=== PATIENT | male | born 1940 | race Caucasian/White ===

== ENCOUNTER 2017-02-24 18:04 | Inpatient (IN) | payer MEDICARE, BC ==
[~2017-02-24] VITALS: Ht 172.7 cm; Wt 109.6 kg
[~2017-02-24 18:04] MED LIST: ALBU1AER INH; ASPI81TA82 PO; ATOR80TA PO; BUDE.25I IN; CALC600T10; CETI5SOL2 PO; CHRO1TAB2 PO; DOXA1 PO; FLUO.05%ST EX; HYDR-2768 PO; LANTUS2P SC; LISI-366 PO; METO200T3 PO; MINO0.1C PO; NAPR250T57 PO; NOVOINJ SQ; NYST100010 TOP; NYSTT TOP; PRED20 PO; PRED50 PO; RISE1TAB; TAB-TAB PO; TIOT18I INH; [UNRECOGNIZED DRUG - CODE]; [UNRECOGNIZED DRUG - CODE]
[2017-02-24 18:22] VITALS: BP 105/63; PULSE 98; RESP 18; TEMP 98.3; O2SAT 97
[2017-02-24 18:41] VITALS: RESP 18; O2SAT 98
[2017-02-24 18:54] LABS: BASOPHIL % 0.2 % (0.0-2.0); EOSINOPHIL # 0.3 TH/MM3 (0-0.4); EOSINOPHIL % 4.1 % (0.0-4.0); HEMATOCRIT 32.4 % (39.0-51.0); HEMO FLAGS DIFF FINAL; LYMPHOCYTE # 0.4 TH/MM3 (1.0-4.8); MEAN CELL VOLUME 90.3 FL (80.0-100.0); MEAN CORPUSCULAR HEMOGLOBIN 29.9 PG (27.0-34.0); MEAN CORPUSCULAR HGB CONC 33.1 % (32.0-36.0); MONO % 6.4 % (0.0-8.0); NEUT % 84.3 % (16.0-70.0); PLATELET COUNT 230 TH/MM3 (150-450); RED BLOOD COUNT 3.59 MIL/MM3 (4.50-5.90); RED CELL DISTRIBUTION WIDTH 14.3 % (11.6-17.2); WHITE BLOOD COUNT 8.3 TH/MM3 (4.0-11.0)
[2017-02-24 19:05] LABS: APTT (PATIENT) 30.3 SEC (24.3-30.1); PROTHROMBIN TIME - PATIENT 11.3 SEC (9.8-11.6)
--- NOTE | 2017-02-24 19:15 | RADRPT ---
EXAM DATE/TIME: 02/24/2017 18:59 [facility] COMPARISON: No previous studies available for comparison. INDICATIONS : Unsteady gait today, confusion. RADIATION DOSE: 56.35 CTDIvol (mGy) MEDICAL HISTORY : Cardiovascular disease. SURGICAL HISTORY : None. ENCOUNTER: Initial ACUITY: 1 day PAIN SCALE: 0/10 LOCATION: cranial TECHNIQUE: Multiple contiguous axial images were obtained of the head. Using automated exposure control and adj ustment of the mA and/or kV according to patient size, radiation dose was kept as low as reasonably a chievable to obtain optimal diagnostic quality images. FINDINGS: CEREBRUM: The ventricles are normal for age. No evidence of midline shift, mass lesion, hemorrhage or acute in farction. No extra-axial fluid collections are seen. POSTERIOR FOSSA: The cerebellum and brainstem are intact. The 4th ventricle is midline. The cerebellopontine angle i s unremarkable. EXTRACRANIAL: The visualized portion of the orbits is intact. There is mucosal thickening in the left maxillary sin us with small air-fluid level. There is a small retention cyst in the right maxillary sinus. SKULL: The calvaria is intact. No evidence of skull fracture. CONCLUSION: 1. No acute hemorrhage or mass effect. 2. Acute sinusitis in the left maxillary sinus. Raul Craig MD on February 24, 2017 at 19:13 Board Certified Radiologist. This report was verified electronically.
[2017-02-24 19:25] LABS: ANION GAP 8 MEQ/L (5-15); AST (GOT) 10 U/L (15-37); BICARBONATE 25.5 MEQ/L (21.0-32.0); BLOOD UREA NITROGEN 30 MG/DL (7-18); CHLORIDE 105 MEQ/L (98-107); GLOMERULAR FILTRATION RATE 36 ML/MIN (>89); POTASSIUM 5.2 MEQ/L (3.5-5.1); SODIUM (NA) 138 MEQ/L (136-145)
[2017-02-24 19:30] LABS: BLOOD, URINE TRACE (NEG); GLUCOSE,URINE NEG (NEG); HYALINE CAST, URINE 6 /lpf (RARE); KETONE, URINE NEG (NEG); MUCUS URINE FEW /lpf (OCC); NITRITE,URINE NEG (NEG); PH, URINE 5.5 (5.0-8.5); URINE COLOR YELLOW (YELLW/STRAW)
[2017-02-24 19:30] LABS: ALKALINE PHOSPHATASE 117 U/L (45-117); ALT (GPT) 21 U/L (12-78); TOTAL BILIRUBIN ADULT 0.3 MG/DL (0.2-1.0)
[2017-02-24 19:31] LABS: CREATINE KINASE 44 U/L (39-308)
[2017-02-24 19:32] LABS: COMMENT (UR) CATH-CULT NOT IND; CULTURE IF INDICATED CATH CULTURE NOT IND
--- NOTE | 2017-02-24 19:34 | PD ---
HPI Chief Complaint: Neuro Symptoms/ Deficits Time Seen by Provider: 18:45 Travel History International Travel<30 days: No Contact w/Intl Traveler<30days: No Traveled to known affect area: No History of Present Illness HPI 76-year-old male presents to emergency Department with his family with involuntary movements and tingling of his upper extremities. Patient states it started yesterday and has progressed through the last 2 days. Patient denies fever, chills, or other specific medical problems. Patient does have significant COPD for which he uses a nebulizer, as well as several inhalers. Patient denies increased chest pain or shortness of breath. Patient states he did have a mild headache this morning which is since gone away. Patient states he did fall today as his legs felt somewhat uncoordinated and scraped his left knee. Patient has a long-term abrasion on the left lower extremity which she has been treating through the [place] for several months. Patient states that he does drink daily. Patient has never had similar symptoms previously this. The movements appear to be involuntary and intermittent. Patient is allergic to Bupropion, Hydrocodone, Terazosin, and Zyban. PFSH Past Medical History Cardiovascular Problems: Yes ([place]) COPD: Yes Coronary Artery Disease: Yes Diabetes: Yes Patient Takes Glucophage: No Diminished Hearing: Yes (BILATERAL HEARING AIDES) Respiratory: Yes (COPD) Sleep Apnea: Yes ?: Not Past Surgical History Abdominal Surgery: Yes (HERNIA) Joint Replacement: Yes (RIGHT KNEE) Tonsillectomy: Yes Social History Alcohol Use: Yes (DAILY ) Tobacco Use: No Substance Use: No Allergies-Medications (Allergen,Severity, Reaction): Coded Allergies: Bupropion (Verified Allergy, Unknown, 02/24/17) Hydrocodone (Verified Allergy, Unknown, 02/24/17) Terazosin (Verified Allergy, Unknown, 02/24/17) Uncoded Allergies: ZYBAN (Allergy, Severe, 10/22/15) Reported Meds & Prescriptions Reported Meds & Active Scripts Active Active Prescriptions or Reported Medications Unobtainable Physical Exam Narrative GENERAL: Patient appears in no obvious distress. Patient is noted to have audible wheezing, which he blames on his COPD. SKIN: Warm and dry. Normal color. Normal turgor. Patient has mild erythema to both lower extremities with superficial 3 chest chronic wound to the left anterior lower extremity. HEAD: Atraumatic. Normocephalic. EYES: Pupils equal and round. No scleral icterus. No injection or drainage. ENT: No nasal bleeding or discharge. Mucous membranes pink and moist. Pharynx is clear. Airway is patent. NECK: Trachea midline. No JVD. Supple and nontender. CARDIOVASCULAR: Regular rate and rhythm. RESPIRATORY: No accessory muscle use. Diffuse wheezes and crackles bilaterally to auscultation. Breath sounds equal bilaterally. GASTROINTESTINAL: Abdomen soft, non-tender, nondistended. Hepatic and splenic margins not palpable. MUSCULOSKELETAL: Extremities without clubbing, cyanosis, or patient has bilateral 2+ pitting edema. No obvious deformities. Upper extremities do have intermittent jerky movements, no liver flap. 5 motor skills are normal bilaterally with a bit of a tremor. NEUROLOGICAL: Awake and alert. No obvious cranial nerve deficits. Motor grossly within normal limits. Five out of 5 muscle strength in the arms and legs. Normal speech. PSYCHIATRIC: Appropriate mood and affect; insight and judgment normal. Data Data Last Documented VS Vital Signs Date Time Temp Pulse Resp B/P Pulse Ox O2 Delivery O2 Flow Rate FiO2 02/24/17 21:59 96 02/24/17 19:47 88 18 115/54 Nasal Cannula 2 02/24/17 18:22 98.3 Orders Mri Brain W&W/O Contrast (02/24/17 ) Electrocardiogram (02/24/17 18:30) Complete Blood Count With Diff (02/24/17 18:30) Comprehensive Metabolic Panel (02/24/17 18:30) Prothrombin Time / Inr (Pt) (02/24/17 18:30) Act Partial Throm Time (Ptt) (02/24/17 18:30) Lactic Acid Sepsis Protocol (02/24/17 18:30) Magnesium (Mg) (02/24/17 18:30) Ckmb (Isoenzyme) Profile (02/24/17 18:30) Troponin I (02/24/17 18:30) Urinalysis - C+S If Indicated (02/24/17 18:30) Blood Culture (02/24/17 18:30) Chest, Single Ap (02/24/17 18:30) Ecg Monitoring (02/24/17 18:30) Iv Access Insert/Monitor (02/24/17 18:30) Oximetry (02/24/17 18:30) Oxygen Administration (02/24/17 18:30) Mri C Spine W&W/O Contrast (02/24/17 ) Ct Brain W/O Iv Contrast(Rout) (02/24/17 ) Ct Cerv Spine W/O Contrast (02/24/17 ) B-Type Natriuretic Peptide (02/24/17 19:57) Magnesium (Mg) (02/24/17 19:57) Act Partial Throm Time (Ptt) (02/24/17 19:57) Furosemide Inj (Lasix Inj) (02/24/17 20:15) Albuterol-Ipratropium Neb (Duoneb Neb) (02/24/17 20:30) Piperacil-Tazo 4.5 Gm Premix (Zosyn 4.5 (02/24/17 20:30) Vancomycin Inj (Vancomycin Inj) (02/24/17 20:30) Methylprednisolone So Succ Inj (Solumedr (02/24/17 20:30) Place In Observation (02/24/17 ) Vital Signs (Adult) Q4H (02/24/17 21:47) Activity Oob With Assistance (02/24/17 21:47) [place] / Telemetry .CONTINUOUS (02/24/17 21:47) Diet Heart Healthy (02/25/17 Breakfast) Sodium Chloride 0.9% Flush (Ns Flush) (02/24/17 22:00) Sodium Chloride 0.9% Flush (Ns Flush) (02/25/17 09:00) Basic Metabolic Panel (Bmp) (02/25/17 06:00) Complete Blood Count With Diff (02/25/17 06:00) Pt Request For Service (02/24/17 21:47) Case Management Consult (02/24/17 21:47) Naloxone Inj (Narcan Inj) (02/24/17 22:00) Albuterol-Ipratropium Neb (Duoneb Neb) (02/24/17 22:00) Albuterol-Ipratropium Neb (Duoneb Neb) (02/24/17 22:00) Lorazepam Inj (Ativan Inj) (02/24/17 22:00) Labs Laboratory Tests Test 02/24/17 02/24/17 02/24/17 18:40 18:55 20:10 White Blood Count 8.3 TH/MM3 Red Blood Count 3.59 MIL/MM3 Hemoglobin 10.7 GM/DL Hematocrit 32.4 % Mean Corpuscular Volume 90.3 FL Mean Corpuscular Hemoglobin 29.9 PG Mean Corpuscular Hemoglobin 33.1 % Concent Red Cell Distribution Width 14.3 % Platelet Count 230 TH/MM3 Mean Platelet Volume 8.7 FL Neutrophils (%) (Auto) 84.3 % Lymphocytes (%) (Auto) 5.0 % Monocytes (%) (Auto) 6.4 % Eosinophils (%) (Auto) 4.1 % Basophils (%) (Auto) 0.2 % Neutrophils # (Auto) 7.0 TH/MM3 Lymphocytes # (Auto) 0.4 TH/MM3 Monocytes # (Auto) 0.5 TH/MM3 Eosinophils # (Auto) 0.3 TH/MM3 Basophils # (Auto) 0.0 TH/MM3 CBC Comment DIFF FINAL Differential Comment Prothrombin Time 11.3 SEC Prothromb Time International 1.0 RATIO Ratio Activated Partial 30.3 SEC 31.3 SEC Thromboplast Time Sodium Level 138 MEQ/L Potassium Level 5.2 MEQ/L Chloride Level 105 MEQ/L Carbon Dioxide Level 25.5 MEQ/L Anion Gap 8 MEQ/L Blood Urea Nitrogen 30 MG/DL Creatinine 1.85 MG/DL Estimat Glomerular Filtration 36 ML/MIN Rate Random Glucose 101 MG/DL Lactic Acid Level 1.1 mmol/L Calcium Level 9.0 MG/DL Magnesium Level 2.0 MG/DL 2.0 MG/DL Total Bilirubin 0.3 MG/DL Aspartate Amino Transf 10 U/L (AST/SGOT) Alanine Aminotransferase 21 U/L (ALT/SGPT) Alkaline Phosphatase 117 U/L Total Creatine Kinase 44 U/L Troponin I 0.02 NG/ML Total Protein 6.5 GM/DL Albumin 3.2 GM/DL Urine Color YELLOW Urine Turbidity CLEAR Urine pH 5.5 Urine Specific [place] 1.017 Urine Protein TRACE mg/dL Urine Glucose (UA) NEG mg/dL Urine Ketones NEG mg/dL Urine Occult Blood TRACE Urine Nitrite NEG Urine Bilirubin NEG Urine Urobilinogen LESS THAN 2.0 MG/DL Urine Leukocyte Esterase NEG Urine RBC 2 /hpf Urine WBC 1 /hpf Urine Hyaline Casts 6 /lpf Urine Mucus FEW /lpf Microscopic Urinalysis Comment CATH-CULT NOT IND B-Type Natriuretic Peptide 702 PG/ML MDM Medical Decision Making Medical Screen Exam Complete: Yes Emergency Medical Condition: Yes Medical Record Reviewed: Yes Differential Diagnosis [place]. Myelopathy. CHF. Pneumonia. Lower extremity cellulitis. COPD with acute exacerbation. Narrative Course Patient is medically stable at time of exam. Patient is discussed and seen with Dr. Wynn. Labs ordered including CBC, CMP, lactic acid, blood cultures 2, and urinalysis. Chest x-ray is ordered as well as head and C-spine. MRI of the neck with and without contrast is ordered as well. CBC is remarkable except for mild anemia which is chronic for the patient compared to previous labs. Hemoglobin is 10.7, hematocrit 32.4. CMP shows sodium 138, potassium 5.2. BUN is 30. Creatinine is 1.85. There is no previous comparison here. Coagulation studies are unremarkable. Chest x-ray shows new consolidative opacity in the right lung base of concern for possible pneumonia. Patient also has mild hazy opacity in the left lung base, and mild blunting of both costophrenic angles chest with small effusions per radiologist. CT shows multiple chronic arthritic changes without anything acute, per radiologist. MRI with and without contrast is still pending. ProBNP is [address] Chakraborty who took over care after the change from Dr. Wynn, and she recommends antibiotics for possible pneumonia as well as possible lower extremity cellulitis despite the patient's fairly normal- appearing labs. The patient is given vancomycin 1000 mg IV as well as Zosyn 4.5 g IV. Also the patient is given Lasix IV for question of CHF. Patient is given a DuoNeb 1 and Solu-Medrol 125 mg IV due to his COPD history. 2100 hrs. call was placed to the hospitalist for admission. [address] Galicia, and she agreed to admit the patient. Diagnosis Primary Impression: Pneumonia Qualified Code: J18.1 - Pneumonia of right lower lobe due to infectious organism Additional Impressions: CHF exacerbation Qualified Code: I50.9 - Acute on chronic congestive heart failure, unspecified congestive heart failure type COPD exacerbation Bilateral lower leg cellulitis Upper extremity anomaly Admitting Information Admitting Physician Requests: Admit Scripts Unable to Obtain Active Prescriptions or Reported Meds Condition: Stable Nelson Heard Feb 24, 2017 19:33
[2017-02-24 19:47] VITALS: BP 115/54; PULSE 88; RESP 18; O2SAT 96
--- NOTE | 2017-02-24 19:57 | RADRPT ---
EXAM DATE/TIME: 02/24/2017 19:02 [facility] COMPARISON: No previous studies available for comparison. INDICATIONS : Unsteady gait. RADIATION DOSE: 35.15 CTDIvol (mGy) MEDICAL HISTORY : Cardiovascular disease. SURGICAL HISTORY : None. ENCOUNTER: Initial ACUITY: 1 day PAIN SCALE: 0/10 LOCATION: neck TECHNIQUE: Volumetric scanning of the cervical spine was performed. Multiplanar reconstructions in the sagittal, coronal and oblique axial planes were performed. Using automated exposure control and adjustment o f the mA and/or kV according to patient size, radiation dose was kept as low as reasonably achievable to obtain optimal diagnostic quality images. FINDINGS: Study is mildly degraded by motion artifact. VERTEBRAE: Normal vertebral body height. DISCS: There is mild degenerative disc change at the C5-6 and C6-7 levels with disc space narrowing and hype rtrophic change. ALIGNMENT: No evidence of subluxation. C2-C3: The bony spinal canal is normal in size. No evidence of disc bulge or herniation. The neural forami na are bilaterally patent. C3-C4: The bony spinal canal is normal in size. No evidence of disc herniation. There is moderate narrowing of the left neural foramina secondary to degenerative change involving the facet joint. C4-C5: The bony spinal canal is normal in size. No evidence of disc herniation. The neural foramina are bi laterally patent. C5-C6: There is a mild disc osteophyte complex with mild flattening of the anterior thecal sac. There is mil d narrowing of the neural foramina bilaterally. C6-C7: The bony spinal canal is normal in size. No evidence of disc herniation. The neural foramina are bi laterally patent. C7-T1: The bony spinal canal is normal in size. No evidence of disc herniation. The neural foramina are bi laterally patent. CONCLUSION: 1. Moderate narrowing of left neural foramina at the C3-4 level secondary to hypertrophic change invo lving the facet joint. 2. Mild degenerative change at the C5-6 and C6-7 levels. 3. Mild disc osteophyte complex at C5-6 with mild narrowing of the neural foramina. Raul Craig MD on February 24, 2017 at 19:52 Board Certified Radiologist. This report was verified electronically.
--- NOTE | 2017-02-24 20:12 | RADRPT ---
EXAM DATE/TIME: 02/24/2017 19:20 [facility] COMPARISON: CHEST SINGLE AP, October 22, 2015, 13:12. INDICATIONS : Chest pain. MEDICAL HISTORY : Myocardial infarction. Chronic obstructive pulmonary disease. Diabetes SURGICAL HISTORY : None. ENCOUNTER: Initial ACUITY: 1 day PAIN SCORE: 5/10 LOCATION: Bilateral chest FINDINGS: A single AP erect view of the chest was obtained and demonstrates new consolidative opacity in the ri ght lung base with blunting of the costophrenic angles bilaterally. The heart size is moderately enla rged. There is no perihilar edema. There is hazy opacity now noted at the left lung base. The bony th orax remains intact. There are atherosclerotic changes in the aorta. CONCLUSION: 1. New consolidative opacity in the right lung base of concern for pneumonia. 2. Mild hazy opacity at the left lung base. 3. Mild blunting of both costophrenic angles which could indicate small effusions. Raul Craig MD on February 24, 2017 at 20:09 Board Certified Radiologist. This report was verified electronically.
[2017-02-24] MEDS ORDERED: FUROSEMIDE 40 MG/4 ML VIAL IV PUSH ONE (20:15)
[2017-02-24] MEDS ORDERED: VANCOMYCIN INJ 1,000 MG in SODIUM CHLOR 0.9% 250 ML INJ 250 ML IV ONE (20:30)
[2017-02-24] MEDS ORDERED: RESP: ALBUTEROL 2.5 MG/IPRATROPIUM 0.5 MG NEB (SCH) INH ONE (20:30)
[2017-02-24] MEDS ORDERED: methylPREDNISolone SOD SUCC 125 MG/2 ML VIAL IV PUSH ONE (20:30)
[2017-02-24] MEDS ORDERED: PIPERACIL-TAZO 4.5 GM PREMIX 100 ML IV ONE (20:30)
[2017-02-24 20:37] LABS: APTT (PATIENT) 31.3 SEC (24.3-30.1)
[2017-02-24 21:59] VITALS: O2SAT 96
[2017-02-24] MEDS ORDERED: LORazepam 2 MG/ML VIAL IV PUSH ONE (22:00)
[2017-02-24] MEDS ORDERED: NALOXONE HCL 0.4 MG/ML AMP IV PRN (22:00)
[2017-02-24] MEDS: RESP: ALBUTEROL 2.5 MG/IPRATROPIUM 0.5 MG NEB (SCH) NEB (22:00)
[2017-02-24 22:39] VITALS: BP 112/53; PULSE 78; RESP 19; O2SAT 95
[2017-02-24] MEDS ORDERED: GADOBENATE DIM PF 529 MG/ML 20ML VIAL (for RAD MRI) IV ONE (23:23)
[2017-02-24 23:46] VITALS: BP 143/62; PULSE 84; RESP 20; TEMP 97.7; O2SAT 96
--- NOTE | 2017-02-24 23:54 | RADRPT ---
EXAM DATE/TIME: 02/24/2017 22:46 [facility] COMPARISON: CT BRAIN W/O CONTRAST, February 24, 2017, 18:59. INDICATIONS : Upper extremity weakness. CONTRAST: 20 cc Multihance (gadobenate) IV MEDICAL HISTORY : Hypertension. Diabetes mellitus type 2. SURGICAL HISTORY : Fusion, lumbar. ENCOUNTER: Initial ACUITY: 2 day PAIN SCORE: 0/10 LOCATION: head TECHNIQUE: Multiplanar, multisequence MRI of the brain was performed both prior to and following the administrat ion of paramagnetic contrast. FINDINGS: CEREBRUM: The ventricles are normal for age. No evidence of midline shift, mass lesion, hemorrhage or acute in farction. No extraaxial fluid collections are seen. The pituitary gland and suprasellar cistern are normal in configuration. WHITE MATTER: No significant signal abnormalities are seen in the white matter. POSTERIOR FOSSA: The cerebellum and brainstem are intact. The 4th ventricle is midline. The cerebellopontine angle is unremarkable. The cerebellar tonsils are normal in position. DIFFUSION IMAGING: No focal areas of restricted diffusion are seen. No evidence of acute infarction. EXTRACRANIAL: The visualized portions of the orbits are unremarkable. Left maxillary sinusitis. POST-CONTRAST: No abnormal areas of parenchymal or dural enhancement. No evidence of blood-brain barrier breakdown. CONCLUSION: 1. No acute intracranial abnormality. 2. Left maxillary sinus disease. 3. No acute infarction. Neto Duenas MD on February 24, 2017 at 23:51 Board Certified Radiologist. This report was verified electronically.
[2017-02-25] VITALS (11 sets, daily range): BP systolic 109–156; BP diastolic 57–67; PULSE 72–129; RESP 16–22; TEMP 97.5–98; O2SAT 93–98
--- NOTE | 2017-02-25 00:12 | RADRPT ---
EXAM DATE/TIME: 02/24/2017 22:46 [facility] COMPARISON: No previous studies available for comparison. INDICATIONS : Upper extremity weakness. CONTRAST: 20 cc Multihance (gadobenate) IV MEDICAL HISTORY : Hypertension. Diabetes mellitus type 2. SURGICAL HISTORY : Fusion, lumbar. ENCOUNTER: Initial ACUITY: 2 day PAIN SCORE: 4/10 LOCATION: c-spine TECHNIQUE: Multiplanar, multisequence MRI examination of the cervical spine was performed. FINDINGS: VERTEBRAE: Normal vertebral body height. Homogeneous marrow signal. ALIGNMENT: No evidence of subluxation. CORD: Normal configuration and signal. POST FOSSA: The cerebellar tonsils are normal in position. POST-CONTRAST: No abnormal areas of enhancement are seen. C2-C3: The thecal sac has a normal configuration. There is no evidence of disc herniation or spinal canal stenosis. The neural foramina are patent bilaterally. C3-C4: Small central protrusion abuts the ventral cord. Minimal extruded component extending superiorly unde rneath the posterior longitudinal ligament. No canal stenosis. Mild neural foraminal narrowing on the left. Right neural foramen is patent. C4-C5: Small central protrusion abuts the ventral cord. No canal stenosis. The neural foramina are patent bi laterally. C5-C6: Mild broad-based disc bulge abuts ventral thecal sac. No canal stenosis. Mild bilateral neural forami nal narrowing bilaterally. C6-C7: Mild broad-based disc bulge abuts ventral thecal sac. No canal stenosis. The neural foramina are trujillo nt bilaterally. C7-T1: The thecal sac has a normal configuration. There is no evidence of disc herniation or spinal canal s tenosis. The neural foramina are patent bilaterally. CONCLUSION: 1. Small central protrusion at C4-5 without canal stenosis. 2. Small central protrusion at C3-4 with minimal extruded component. 3. Mild broad-based disc bulges at C5-6 and C6-7 levels without canal stenosis. Neto Duenas MD on February 25, 2017 at 0:07 Board Certified Radiologist. This report was verified electronically.
--- NOTE | 2017-02-25 01:26 | HHI.HP ---
[facility] Unknown Admission Diagnosis Pneumonia/Cellulitis/CHF/COPD Diagnoses: Chief Complaint: Falling down, weakness, chest pain, shortness of breath, cough Travel History International Travel<30 Days: No Contact w/Intl Traveler <30 Da: No Traveled to Known Affected Are: No History of Present Illness His room patient, your physician communication, and review of medical records. Patient reported that he came to the hospital because he just has been falling down. He reports he was not able to grab anything with his hands. He stated this is bilateral. He reports that he was also an steady on his feet and did fall down at home. Landed on his buttock. Denies any head trauma. Denies being on blood thinners at home. He denies syncope. On further questioning, patient also reports of having shortness of breath and cough in the past few days to a week or so. He reports that he also happens to have chest pain this morning which went all across his chest. He denies any recent fevers/nausea/vomiting/diarrhea/urinary burning or pain on urination. Denies any hematemesis/hematochezia/melena/hematuria. Patient states that he wears long pumping device bilaterally in his lower extremities for lymphedema. He stated [facility] and that it really helps with his lymphedema. He denies any recent prolonged travels. Denies any calf asymmetry or pain. Review of Systems Except as stated in HPI: all other systems reviewed are Neg Past Family Social History Past Medical History Hypertension Diabetes Coronary artery disease CHF COPD Reports he thinks he has asthma. Sleep apneahe states he was prescribed C Pap machine but he doesn't really use it because of discomfort. Chronic bilateral lower extremity lymphedemafor which he uses some pumping device on a daily basis Obesity Past Surgical History Right knee surgery Left wrist surgery Hemorrhoidectomy Fistular repair Tonsillectomy Reported Medications Patient does not remember the names and doses of his medications. Med reconciliation is not complete. Allergies: Coded Allergies: Bupropion (Verified Allergy, Unknown, 02/24/17) Hydrocodone (Verified Allergy, Unknown, 02/24/17) Terazosin (Verified Allergy, Unknown, 02/24/17) Uncoded Allergies: ZYBAN (Allergy, Severe, 10/22/15) Family History Reports his father had arrhythmias. Reports mother had coronary artery disease. Social History He used to smoke cigarettes, quit in 1999. Denies any alcohol abuse or drug abuse. Physical Exam Vital Signs Vital Signs Date Time Temp Pulse Resp B/P Pulse Ox O2 Delivery O2 Flow Rate FiO2 02/24/17 23:46 97.7 84 20 143/62 96 02/24/17 22:39 78 19 112/53 95 Nasal Cannula 2 02/24/17 21:59 96 02/24/17 19:47 88 18 115/54 96 Nasal Cannula 2 02/24/17 18:41 18 98 Nasal Cannula 2 02/24/17 18:41 98 Nasal Cannula 2 02/24/17 18:22 98.3 98 18 105/63 97 Room Air 02/24/17 18:20 99 18 96 Nasal Cannula 2 Physical Exam GENERAL: This is a well-nourished, well-developed patient, in no apparent distress. Obese SKIN: No rashes, ecchymoses or lesions. Cool and dry. HEAD: Atraumatic. Normocephalic. No temporal or scalp tenderness. EYES: No scleral icterus. No injection or drainage. ENT: Nose without bleeding, purulent drainage or septal hematoma. Airway patent. NECK: Trachea midline. No JVD CARDIOVASCULAR: Regular rate and rhythm without murmurs, gallops, or rubs. RESPIRATORY: Clear to auscultation. Breath sounds equal bilaterally. No wheezes , rales, or rhonchi. GASTROINTESTINAL: Abdomen soft, non-tender, nondistended. No guarding. MUSCULOSKELETAL: Extremities without clubbing, cyanosis, or edema. No calf tenderness. Bilateral lower extremity chronic lymphedema. Left lower extremity slightly more red than the right. Patient reports of chronicity. No warmth. NEUROLOGICAL: Awake and alert. Motor and sensory grossly within normal limits. Normal speech. Laboratory Laboratory Tests Test 02/24/17 02/24/17 02/24/17 18:40 18:55 20:10 White Blood Count 8.3 Red Blood Count 3.59 Hemoglobin 10.7 Hematocrit 32.4 Mean Corpuscular Volume 90.3 Mean Corpuscular Hemoglobin 29.9 Mean Corpuscular Hemoglobin 33.1 Concent Red Cell Distribution Width 14.3 Platelet Count 230 Mean Platelet Volume 8.7 Neutrophils (%) (Auto) 84.3 Lymphocytes (%) (Auto) 5.0 Monocytes (%) (Auto) 6.4 Eosinophils (%) (Auto) 4.1 Basophils (%) (Auto) 0.2 Neutrophils # (Auto) 7.0 Lymphocytes # (Auto) 0.4 Monocytes # (Auto) 0.5 Eosinophils # (Auto) 0.3 Basophils # (Auto) 0.0 CBC Comment DIFF FINAL Differential Comment Prothrombin Time 11.3 Prothromb Time International 1.0 Ratio Activated Partial 30.3 31.3 Thromboplast Time Sodium Level 138 Potassium Level 5.2 Chloride Level 105 Carbon Dioxide Level 25.5 Anion Gap 8 Blood Urea Nitrogen 30 Creatinine 1.85 Estimat Glomerular Filtration 36 Rate Random Glucose 101 Lactic Acid Level 1.1 Calcium Level 9.0 Magnesium Level 2.0 2.0 Total Bilirubin 0.3 Aspartate Amino Transf 10 (AST/SGOT) Alanine Aminotransferase 21 (ALT/SGPT) Alkaline Phosphatase 117 Total Creatine Kinase 44 Troponin I 0.02 Total Protein 6.5 Albumin 3.2 Urine Color YELLOW Urine Turbidity CLEAR Urine pH 5.5 Urine Specific [place] 1.017 Urine Protein TRACE Urine Glucose (UA) NEG Urine Ketones NEG Urine Occult Blood TRACE Urine Nitrite NEG Urine Bilirubin NEG Urine Urobilinogen LESS THAN 2.0 Urine Leukocyte Esterase NEG Urine RBC 2 Urine WBC 1 Urine Hyaline Casts 6 Urine Mucus FEW Microscopic Urinalysis Comment CATH-CULT NOT IND B-Type Natriuretic Peptide 702 Date/Time Procedure Status Source Growth 02/24/17 18:40 Aerobic Blood Culture Received Blood Peripheral Pending 02/24/17 18:40 Anaerobic Blood Culture Received Blood Peripheral Pending Result Diagram: 02/24/17 1840 02/24/17 1840 Imaging Last 48 hours Impressions Chest X-Ray 02/24/17 1830 Signed Impressions: Service Date/Time: Friday, February 24, 2017 19:20 - CONCLUSION: 1. New consolidative opacity in the right lung base of concern for pneumonia. 2. Mild hazy opacity at the left lung base. 3. Mild blunting of both costophrenic angles which could indicate small effusions. Raul Craig MD Head CT 02/24/17 0000 Signed Impressions: Service Date/Time: Friday, February 24, 2017 18:59 - CONCLUSION: 1. No acute hemorrhage or mass effect. 2. Acute sinusitis in the left maxillary sinus. Raul Craig MD Cervical Spine MRI 02/24/17 0000 Signed Impressions: Service Date/Time: Friday, February 24, 2017 22:46 - CONCLUSION: 1. Small central protrusion at C4-5 without canal stenosis. 2. Small central protrusion at C3-4 with minimal extruded component. 3. Mild broad-based disc bulges at C5- 6 and C6-7 levels without canal stenosis. Neto Duenas MD Cervical Spine CT 02/24/17 0000 Signed Impressions: Service Date/Time: Friday, February 24, 2017 19:02 - CONCLUSION: 1. Moderate narrowing of left neural foramina at the C3-4 level secondary to hypertrophic change involving the facet joint. 2. Mild degenerative change at the C5-6 and C6-7 levels. 3. Mild disc osteophyte complex at C5-6 with mild narrowing of the neural foramina. Raul Craig MD Brain MRI 02/24/17 0000 Signed Impressions: Service Date/Time: Friday, February 24, 2017 22:46 - CONCLUSION: 1. No acute intracranial abnormality. 2. Left maxillary sinus disease. 3. No acute infarction. Neto Duenas MD Assessment and Plan Problem List: (1) Pneumonia ICD Code: J18.9 Status: Acute Assessment and Plan Impression: Generalized weakness/fallslikely due to acute medical illness. Patient's imaging studies reviewed. No acute pathologies. Pneumoniacommunity acquired in a diabetic with quite generalized weakness secondary to it Elevated BNPlikely due to renal failure. However patient does report of shortness of breath. This could also be due to pneumonia. Hypertension Diabetes Coronary artery disease CHF COPDquit smoking in 1999 Chronic kidney disease stage III Reports he thinks he has asthma. Sleep apneahe states he was prescribed C Pap machine but he doesn't really use it because of discomfort. Chronic bilateral lower extremity lymphedemafor which he uses some pumping device on a daily basis Obesity Plan: Patient was given for treatment of pneumonia. Was switched to single regimen with cefepime. Watch for fluid overload. He was also given Lasix 40 mg IV 1 dose in ER. At present, I would continue Lasix by mouth at 20 mg by mouth twice a day. However would watch for fluid overload with IV antibiotics administration. Obtain patient's med reconciliation. Orders have been written. Nebs when necessary. DVT prophylaxisheparin. GI prophylaxis on pantoprazole. Discussed Condition With Patient, ER physician, patient's nurse Problem Qualifiers (1) Pneumonia: Qualified Code: J18.1 - Pneumonia of right lower lobe due to infectious organism Haider Galicia MD Feb 25, 2017 01:25
[2017-02-25] MEDS: RESP: ALBUTEROL 2.5 MG/IPRATROPIUM 0.5 MG NEB (SCH) NEB ×4 (03:48→19:24)
[2017-02-25 05:53] LABS: AUTOMATED NEUTROPHIL # 6.5 TH/MM3 (1.8-7.7); BASOPHIL % 0.3 % (0.0-2.0); EOSINOPHIL % 0.3 % (0.0-4.0); HEMATOCRIT 31.3 % (39.0-51.0); HEMO FLAGS DIFF FINAL; LYMPH % 6.2 % (9.0-44.0); LYMPHOCYTE # 0.4 TH/MM3 (1.0-4.8); MEAN CORPUSCULAR HEMOGLOBIN 29.7 PG (27.0-34.0); MEAN CORPUSCULAR HGB CONC 32.2 % (32.0-36.0); MONO % 2.3 % (0.0-8.0); NEUT % 90.9 % (16.0-70.0); PLATELET COUNT 177 TH/MM3 (150-450); RED CELL DISTRIBUTION WIDTH 14.4 % (11.6-17.2); WHITE BLOOD COUNT 7.1 TH/MM3 (4.0-11.0)
[2017-02-25] MEDS: HEPARIN SODIUM - SQ 10,000 UNITS/ML VIAL SQ SCH ×3 (06:11→20:52)
[2017-02-25 06:19] LABS: BICARBONATE 23.9 MEQ/L (21.0-32.0); POTASSIUM 5.1 MEQ/L (3.5-5.1)
[2017-02-25] MEDS ORDERED: DEXTROSE 50% IN WATER 50 ML VIAL(D50) IV PUSH PRN (07:30)
[2017-02-25] MEDS ORDERED: GLUCAGON 1 MG/ML VIAL OTHER PRN (07:30)
[2017-02-25] MEDS: SODIUM CHLORIDE 0.9% FLUSH 10 ML FLUSH IV FLUSH SCH ×2 (08:49→21:03)
[2017-02-25] MEDS: AZITHROMYCIN INJ 500 MG in SODIUM CHLOR 0.9% 250 ML INJ 250 ML IV SCH (08:49)
[2017-02-25] MEDS ORDERED: CEFEPIME INJ 1,000 MG in SODIUM CHLORIDE 0.9% INJ 100 ML IV SCH (09:00)
[2017-02-25] MEDS ORDERED: cefTRIAXone INJ 1,000 MG in SODIUM CHLORIDE 0.9% INJ 100 ML IV SCH (10:00)
--- NOTE | 2017-02-25 10:43 | EKG ---
Date Performed: 02/24/2017 Time Performed: 18:20:43 PTAGE: 76 years EKG: Sinus rhythm PROBABLE LATERAL MYOCARDIAL INFARCTION INFERIOR MYOCARDIAL INFARCTION ABNORMAL ECG INTERPRETATION BA SED ON A DEFAULT AGE OF 40 YEARS PREVIOUS TRACING : 10/22/2015 13.10 DOCTOR: Jong Butts Interpretating Date/Time 02/25/2017 10:41:52
[2017-02-25] MEDS ORDERED: INSULIN ASPART SUPPLEMENTAL SCALE SQ SCH (11:00)
[2017-02-25] MEDS ORDERED: FUROSEMIDE 40 MG/4 ML VIAL IV PUSH ONE (11:45)
[2017-02-25] MEDS: RESP: ALBUTEROL 2.5 MG/IPRATROPIUM 0.5 MG NEB (PRN) NEB ×2 (12:09→23:17)
[2017-02-25 12:29] LABS: BLOOD GAS BASE EXCESS -3.9 mmol/L (-2-2); BLOOD GAS CARBOXYHEMOGLOBIN 1.2 % (0-4); BLOOD GAS HCO3 22 mmol/L (22-26); BLOOD GAS METHEMOGLOBIN 0.5 % (0-2); BLOOD GAS O2 HGB SATURATION 94 % (90-100); BLOOD GAS OXYGEN CONTENT 14.3 Vol % (12.0-20.0); BLOOD GAS PCO2 45 mmHg (38-42); BLOOD GAS PO2 84 mmHG (61-120); BLOOD GAS TOTAL HGB 10.8 G/DL (12.0-16.0); TEMP CORR TO 98.6
[2017-02-25 12:30] LABS: CRITICAL VALUE NO; DRAW SITE RT RADIAL; LITER FLOW 2 L/M; NUMBER OF ARTERIAL PUNCTURES 2; OXYGEN DEVICE NASAL CANNULA; STAT YES; ULNAR PULSE PRESENT
--- NOTE | 2017-02-25 12:34 | RADRPT ---
EXAM DATE/TIME: 02/25/2017 12:04 [place] COMPARISON: CHEST SINGLE AP, February 24, 2017, 19:20. INDICATIONS : Patient has been short of breath since this morning. MEDICAL HISTORY : None. SURGICAL HISTORY : None. ENCOUNTER: Initial ACUITY: 1 day PAIN SCORE: 0/10 LOCATION: Bilateral chest FINDINGS: There is stable cardiomegaly, small effusions and basilar parenchymal disease. Degenerative changes o f the spine. CONCLUSION: No significant change has occurred. Evaristo Massey MD on February 25, 2017 at 12:33 Board Certified Radiologist. This report was verified electronically.
[2017-02-25] MEDS ORDERED: BENZONATATE 100 MG CAP PO PRN (13:00)
--- NOTE | 2017-02-25 13:14 | HHI.PR ---
Subjective Remarks Follow-up for pneumonia, COPD, CHF exacerbation. Patient reports continued shortness of breath today with productive cough although patient swallows his sputum. Denies fevers or chills but does report sweats overnight. He reports wheezing and difficulty with deep inspiration. Reports constant left anterior sharp chest pain, worse with cough. Patient with a history of CHF, he had cardiac catheterization done two years ago and he believes his EF was 35% at that time. Objective Vitals Vital Signs Date Time Temp Pulse Resp B/P Pulse Ox O2 Delivery O2 Flow Rate FiO2 02/25/17 11:19 98.0 120 20 129/60 96 02/25/17 09:29 98 Nasal Cannula 2.00 02/25/17 07:50 97.5 89 16 144/65 97 02/25/17 04:09 97.6 18 156/67 95 02/25/17 03:50 96 Nasal Cannula 2.00 02/25/17 01:27 72 02/24/17 23:46 97.7 84 20 143/62 96 02/24/17 22:39 78 19 112/53 95 Nasal Cannula 2 02/24/17 21:59 96 02/24/17 19:47 88 18 115/54 96 Nasal Cannula 2 02/24/17 18:41 18 98 Nasal Cannula 2 02/24/17 18:41 98 Nasal Cannula 2 02/24/17 18:22 98.3 98 18 105/63 97 Room Air 02/24/17 18:20 99 18 96 Nasal Cannula 2 I/O 02/24/17 02/24/17 02/24/17 02/25/17 02/25/17 02/25/17 07:00 15:00 23:00 07:00 15:00 23:00 Output Total 900 ml Balance -900 ml Output Urine Total 900 ml # Voids 1 # Bowel Movements 1 Result Diagram: 02/25/17 0528 02/25/17 0528 Imaging Last Impressions Chest X-Ray 02/24/17 1830 Signed Impressions: Service Date/Time: Friday, February 24, 2017 19:20 - CONCLUSION: 1. New consolidative opacity in the right lung base of concern for pneumonia. 2. Mild hazy opacity at the left lung base. 3. Mild blunting of both costophrenic angles which could indicate small effusions. Raul Craig MD Head CT 4/11/17 0000 Signed Impressions: Service Date/Time: Friday, February 24, 2017 18:59 - CONCLUSION: 1. No acute hemorrhage or mass effect. 2. Acute sinusitis in the left maxillary sinus. Raul Craig MD Cervical Spine MRI 02/24/17 0000 Signed Impressions: Service Date/Time: Friday, February 24, 2017 22:46 - CONCLUSION: 1. Small central protrusion at C4-5 without canal stenosis. 2. Small central protrusion at C3-4 with minimal extruded component. 3. Mild broad-based disc bulges at C5- 6 and C6-7 levels without canal stenosis. Neto Duenas MD Cervical Spine CT 02/24/17 0000 Signed Impressions: Service Date/Time: Friday, February 24, 2017 19:02 - CONCLUSION: 1. Moderate narrowing of left neural foramina at the C3-4 level secondary to hypertrophic change involving the facet joint. 2. Mild degenerative change at the C5-6 and C6-7 levels. 3. Mild disc osteophyte complex at C5-6 with mild narrowing of the neural foramina. Raul Craig MD Brain MRI 02/24/17 0000 Signed Impressions: Service Date/Time: Friday, February 24, 2017 22:46 - CONCLUSION: 1. No acute intracranial abnormality. 2. Left maxillary sinus disease. 3. No acute infarction. Neto Duenas MD Objective Remarks GENERAL: Well-nourished, well-developed pleasant elderly male patient in [facility]. SKIN: Warm and dry. No rash. HEENT: Normocephalic. Atraumatic. Pupils equal and round. Mucous membranes pink and moist. NECK: Supple. Trachea midline. CARDIOVASCULAR: Tachycardic, regular rhythm. S1, S2 noted. No murmur appreciated. RESPIRATORY: No accessory muscle use. Poor air entry bilaterally with significant wheezing throughout all lung alexis, with bibasilar crackles, worse on the right. GASTROINTESTINAL: Abdomen soft, non-tender, nondistended. Normoactive bowel sounds x4. MUSCULOSKELETAL: No obvious deformities. Nonpitting lymphedema bilateral lower extremities. NEUROLOGICAL: Awake and alert. No obvious cranial nerve deficits. Motor grossly within normal limits. Normal speech. PSYCHIATRIC: Appropriate mood and affect; insight and judgment normal. Medications and IVs Current Medications Medications (Trade) Dose Ordered Sig/Steve Route Start Time Stop Time Status Last Admin (NS Flush) 2 ml UNSCH PRN IV FLUSH 02/24/17 22:00 (NS Flush) 2 ml BID IV FLUSH 02/25/17 09:00 02/25/17 08:49 (Narcan Inj) 0.4 mg UNSCH PRN IV 02/24/17 22:00 (Heparin Inj) 5,000 units Q8HR SQ 02/25/17 06:00 02/25/17 06:11 (D50w (Vial) Inj) 25 ml UNSCH PRN IV PUSH 02/25/17 07:30 Glucagon 1 mg 1 mg UNSCH PRN OTHER 02/25/17 07:30 Ceftriaxone Sodium 1000 mg/ Sodium Chloride 100 ml @ 200 mls/hr Q24H IV 02/25/17 10:00 02/25/17 10:28 (Zithromax Inj/ NS 250 ml Inj) 250 ml @ 250 mls/hr Q24H IV 02/25/17 09:00 02/25/17 08:49 (SoluMEDROL INJ) 60 mg Q6HR IV PUSH 02/25/17 12:15 Urinary Catheter: No Vascular Central Line Catheter: No A/P Problem List: (1) Pneumonia ICD Code: J18.9 Status: Acute Assessment and Plan 76-year-old male with history of HTN, DM, CAD, CHF, COPD, SEBASTIAN, chronic bilateral lower extremity lymphedema, obesity, presents with a one-week history of cough, shortness of breath, increased weakness and falls. Dyspnea: Likely multifactorial with pneumonia, COPD and CHF exacerbation, See treatment below. CXR images reviewed, shows new consolidative opacity in the right lung base concerning for pneumonia; mild hazy opacity at left lung base; mild blunting of both costophrenic angles which could indicate small effusions. -patient with acute worsening dyspnea today 02/25 - check stat ABG, repeat CXR , give IV Lasix 40mg x1, duoneb -continue O2 prn -check influenza antigen Community-acquired pneumonia: CXR with infiltrate right lung base. Afebrile, no leukocytosis, however patient with productive cough, sweats, tachycardia. S/ p IV Vanco and Zosyn in the ER. -Pneumonia Severity Index 104 points (based on CHF, CKD, HR >124) Risk Class IV, 8.2-9.3% mortality. Hospitalization recommended based on risk. Admit to inpatient. -Continue on IV Rocephin and IV azithromycin. -Start on Mucinex bid -Tessalon prn cough -Blood cultures with NGTD -check sputum culture, urinary legionella/pneumococcal antigen COPD exacerbation: Patient with diffuse wheezing on exam. S/p IV Solumedrol 125mg x1 in the ED. -Continue IV Solumedrol 60mg q6h -Continue duonebs q6h and prn -Start Symbicort bid CHF Exacerbation: patient with hx of CHF, reportedly EF 35% by cath 2-3 years ago. BNP 702. S/p IV Lasix 40mg x1 in the ED. -continue IV Lasix 40mg bid, monitor renal function -check echocardiogram -monitor BNP and Is&Os Sinus Tachycardia: HR 120s today. EKG reviewed by me. Likely secondary to nebs/ steroids. -monitor on telemetry Weakness & Falls: likely secondary to infection/dyspnea. -Head CT images reviewed, shows no acute hemorrhage/mass effect; does show acute sinusitis left maxillary sinus -Brain MRI images reviewed, showed no intracranial abnormality; again left maxillary sinus disease -C-spine CT showed moderate left neural foramina narrowing C3-4; mild degenerative changes C5-6, C6-7; mild disc osteophyte C5-6 with mild neural foramina narrowing -C-spine MRI showed small central protrusion C4-5 without canal stenosis; small central protrusion C3-4; mild broad-based disc bulges without canal stenosis -Consult PT CAD: patient with complaints of chest pain, likely respiratory related however need to rule out ACS -rule out ACS with serial cardiac enzymes/EKGs, first 2 sets negative -restart home meds once verified HTN: chronic -continue patient's home meds once verified Diabetes Mellitus: uncontrolled while on steroids -monitor Accu-cheks and cover with SSI, increased to medium dose SSI while on steroids -check HgbA1c CKD, stage III: Cr 1.85, previously 1.73 in Oct 2015 -slight worsening overnight likely secondary to diuresis -monitor BMP DVT Prophylaxis: Heparin SQ Discussed with RN, RT, Dr. Vivar Problem Qualifiers (1) Pneumonia: Qualified Code: J18.1 - Pneumonia of right lower lobe due to infectious organism Rufina Stein PA-C Feb 25, 2017 13:14 Nacho Vivar DO Feb 25, 2017 19:16
[2017-02-25] MEDS: methylPREDNISolone SOD SUCC 125 MG/2 ML VIAL IV PUSH SCH ×3 (13:34→18:34)
[2017-02-25] MEDS: guaiFENesin E.R. 600 MG TAB PO SCH ×2 (13:55→20:51)
[2017-02-25] MEDS ORDERED: FLUT1SPR5 EACH NARE (14:27)
[2017-02-25] MEDS ORDERED: TRID0.1C TOPICAL (14:27)
[2017-02-25] MEDS ORDERED: LAC-LOT2 TOPICAL (15:15)
[2017-02-25] MEDS ORDERED: GABA600T PO (15:16)
[2017-02-25] MEDS ORDERED: DOXA1TAB43 PO (15:29)
[2017-02-25] MEDS ORDERED: SYMB160A INH (15:29)
[2017-02-25] MEDS ORDERED: PREVPST DENTAL (15:29)
[2017-02-25] MEDS ORDERED: ALBU0.08 NEB (15:29)
[2017-02-25] MEDS ORDERED: [UNRECOGNIZED DRUG - CODE] PO (15:29)
[2017-02-25] MEDS ORDERED: LANTUS2P SQ (15:29)
[2017-02-25] MEDS ORDERED: RISE1TAB PO (15:29)
[2017-02-25] MEDS ORDERED: NOVOLOGP2 SQ (15:29)
[2017-02-25] MEDS ORDERED: VENTAER INH ×2 (15:31)
[2017-02-25] MEDS ORDERED: TOPR200T PO (15:36)
[2017-02-25] MEDS ORDERED: CETI5TAB2 PO (15:36)
[2017-02-25] MEDS ORDERED: SPIRCAP INH (15:36)
[2017-02-25] MEDS ORDERED: HYDR12.56 PO (15:36)
[2017-02-25] MEDS ORDERED: ATOR1TAB18 PO (15:36)
[2017-02-25] MEDS ORDERED: ASPI81TA11 PO (15:36)
[2017-02-25] MEDS ORDERED: LISI40TA PO (15:36)
[2017-02-25 16:06] LABS: HEMOGLOBIN A1a 2.2 %; HEMOGLOBIN A1b 2.4 %; HEMOGLOBIN P3 4.8 %
[2017-02-25] MEDS: INSULIN ASPART SUPPLEMENTAL SCALE SQ SCH ×2 (16:47→21:04)
[2017-02-25] MEDS ORDERED: INSULIN HUMAN REGULAR 1,000 UNITS/10 ML VIAL IV PUSH ONE (17:30)
[2017-02-25] MEDS ORDERED: FUROSEMIDE 40 MG/4 ML VIAL IV PUSH SCH (18:00)
[2017-02-25] MEDS: BUDESONIDE-FORMOTEROL 160/4.5 MCG INHALER INH SCH (20:51)
[2017-02-25] MEDS ORDERED: BUDESONIDE-FORMOTEROL 160/4.5 MCG INHALER INH SCH (21:00)
[2017-02-25] MEDS ORDERED: INSULIN DETEMIR 100 UNITS/ML VIAL SQ SCH (21:00)
--- NOTE | 2017-02-25 21:01 | EC ---
Study Study Date:02/25/2017 STUDY CONCLUSIONS SUMMARY - Procedure narrative: Image quality was poor. The study was technically limited due to poor acoustic window availability and poor patient compliance. Patient was noted to tachycardic and short of breath during the exam. Consider repeating once more stable if necessary. - Left ventricle: Systolic function appears reduced but unable to determine overall function from images. If LV function is below 40, please consider prescribing an ACEI or ARB or document rationale for non-use. PROCEDURE DATA STUDY STATUS: Elective. Procedure: Transthoracic echocardiography. Image quality was poor. The study was technically limited due to poor acoustic window availability and poor patient compliance. Scanning was performed from the parasternal, apical, and subcostal acoustic windows. Study completion: The patient tolerated the procedure well. Transthoracic echocardiography. M-mode, complete 2D, complete spectral Doppler, and color Doppler. Height: Height: 68in. Weight: Weight: 241.5lb. Body mass index: BMI: 36.8kg/m^2. Body surface area: BSA: 2.22m^2. Patient status: Inpatient. CARDIAC ANATOMY LEFT VENTRICLE: Not well visualized. Systolic function appears reduced but unable to determine overall function from images. Images were inadequate for LV wall motion assessment. AORTIC VALVE: Not well visualized. Doppler: There was no stenosis. No significant regurgitation. Valve area: 1.35cm^2(VTI). Indexed valve area: 0.61cm^2/m^2 (VTI). Valve area: 1.57cm^2 (Vmax). Indexed valve area: 0.71cm^2/m^2 (Vmax). Mean gradient: 12mm Hg (S). Peak gradient: 20mm Hg (S). MITRAL VALVE: The valve appears to be grossly normal. Doppler: There was no evidence for stenosis. No significant regurgitation. Valve area by pressure half-time: 5.79cm^2. Indexed valve area by pressure half-time: 2.61cm^2/m^2. PULMONIC VALVE: Not well visualized. TRICUSPID VALVE: The valve appears to be grossly normal. Doppler: There was no evidence for stenosis. Trace regurgitation. Peak gradient: 25mm Hg (D). Patient weight: 241.5lb _Ejection fraction:_ 65-75% _Fractional shortening:_ 32% up to 5Kg 5-11.5Kg 11.6-22.9Kg 23-45Kg 45-57Kg Aortic Root 7-13 <17 13-22 17-27 17-27 LA diam 6-13 <23 24-38 33-47 37-40 RVID 10-17 7-15 7-15 7-18 8-17 LVIDd 12-22 <32 24-38 33-47 37-40 LVPW 2-4 3-6 5-7 6-8 7-8 IVS 2-4 3-6 5-7 6-8 7-8 BASIC MEASUREMENTS ADULT NORMAL Left ventricle LV internal dimension, ED, chordal *59.9 mm 43-52 level, PLAX LV internal dimension, ES, chordal *48.7 mm 23-38 level, PLAX Fractional shortening, chordal level, *19 % >29 PLAX LV posterior wall thickness, ED 16.8 mm IVS/LVPW ratio, ED 0.97 <1.3 Ventricular septum Septal thickness, ED 16.3 mm Aortic valve Leaflet separation *12 mm 15-26 BASIC MEASUREMENTS ADULT NORMAL Aortic valve Leaflet separation *12 mm 15-26 Aorta Root diameter, ED 31 mm 20-37 DOPPLER MEASUREMENTS ADULT NORMAL Aortic valve Peak velocity, S 226 cm/s Mean velocity, S 163 cm/s VTI, S 40.1 cm Mean gradient, S 12 mm Hg Peak gradient, S 20 mm Hg Valve area, VTI 1.35 cm^2 Valve area index, VTI 0.61 cm^2/m^2 Valve area, Vmax 1.57 cm^2 Valve area index, Vmax 0.71 cm^2/m^2 Mitral valve Pressure half-time 38 ms Valve area, pressure half-time 5.79 cm^2 Valve area index, pressure half-time 2.61 cm^2/m^2 Tricuspid valve Peak gradient, D 25 mm Hg Maximal inflow velocity 251 cm/s LEGEND: Mean values are shown as u=mean value. Asterisk (*) jacques values outside specified normal range. Prepared and signed by Robinson Malloy [id number]
[2017-02-25] MEDS: ASPIRIN EC 81 MG TABEC PO SCH (21:03)
[2017-02-25] MEDS: ATORVASTATIN 80 MG TAB PO SCH (21:03)
[2017-02-26] VITALS (26 sets, daily range): BP systolic 81–145; BP diastolic 42–78; PULSE 75–153; RESP 12–32; TEMP 97.8–99.1; O2SAT 85–100
[2017-02-26] MEDS ORDERED: SODIUM CHLORID 0.9% 500 ML INJ 500 ML IV ONE (00:15)
[2017-02-26] MEDS: methylPREDNISolone SOD SUCC 125 MG/2 ML VIAL IV PUSH SCH ×5 (00:15→23:01)
[2017-02-26] MEDS ORDERED: methylPREDNISolone SOD SUCC 125 MG/2 ML VIAL IV PUSH SCH (00:30)
[2017-02-26] MEDS ORDERED: RESP: ALBUTEROL 2.5 MG/IPRATROPIUM 0.5 MG NEB (SCH) NEB ONE (00:30)
[2017-02-26] MEDS ORDERED: RESP: IPRATROPIUM 0.5 MG/2.5 ML NEB NEB ONE (00:45)
[2017-02-26] MEDS ORDERED: ATROPINE SULFATE 1 MG/ML NEB ONE (00:45)
[2017-02-26] MEDS ORDERED: VECURONIUM BROMIDE 10 MG VIAL ONE (00:58)
[2017-02-26] MEDS ORDERED: ETOMIDATE 20 MG/10 ML VIAL ONE (00:59)
[2017-02-26] MEDS ORDERED: ETOMIDATE 20 MG/10 ML VIAL IV PUSH ONE (01:00)
[2017-02-26] MEDS ORDERED: ROCURONIUM INJ 50 MG/5 ML VIAL IV ONE (01:00)
[2017-02-26] MEDS ORDERED: PROPOFOL 500 MG/50 ML INJ 50 ML ONE (01:07)
--- NOTE | 2017-02-26 01:14 | HHI.PR ---
Addendum to Inpatient Note Addendum Reason: Additional Documentation Additional Information I was called by the patient's nurse because patient was wheezing and was acutely short of breath. Patient was also tachycardic with 120s to 130s. Chart reviewed. Patient is known to me from last night and admitted him to the hospital. Therefore I come to see patient at the bedside. Patient is noted to be acutely dyspneic, tripoding, with audible wheezing from a distance. Patient's nurse at the bedside reported that patient just received 60 mg Solu- Medrol IV. He also just received to 1 nebulizer treatment prior to my arrival. Reports that he was just using the bedside commode and upon returning from this , he had wheezing and short of breath. On review of records, patient was also short of breath earlier during the day and therefore workup was done including echocardiogram, diuresis with IV Lasix 40 mg IV, and a repeat chest x-ray was done. Imaging studies personally reviewed. No evidence of pneumothorax/pleural effusion/worsening failure. Patient's renal function is also getting worse on repeat lab today as compared to last night. On exam, patient is awake, alert, oriented. However is quite diaphoretic. Using respiratory sensory muscles. Has audible wheezing from a distance. Abdomen is distended, soft, nontender. Bilateral lower extremity lymphedema. No calf asymmetry. No calf pains. I have therefore ordered for another 60 mg Solu-Medrol IV stat. Also had ordered for Atrovent nebulizer stat but was unable to get the medicine as we were not able to override it in the CDU. Therefore called [facility] overhead. BiPAP was ordered. Patient somewhat improved after the above treatment although not significant much. He was placed on BiPAP in CDU. Were then trying to move patient to intensive care unit and as we were preparing for this, patient while off BiPAP became unresponsive with eyes rolling up, diaphoretic. Therefore CODE BLUE was called. No CPR was performed as patient never really lost pulse. Patient then came back somewhat and was able to talk short sentences by saying yes or no. However he still was in quite a bit of distress and was also given another round of nebulizer treatments. He was then placed back on BiPAP While on BiPAP, patient was still having abdominal breathing pattern and some lethargy although answered yes when drupal architect at the bedside discussed with him regarding intubation. Patient was intubated and placed on ventilatory support by drupal architect and rapid response team. Care is transferred to critical care service. Impression: Acute respiratory failurelikely secondary to COPD exacerbation. Pneumoniacurrently on antibiotics with cefepime. Acute on chronic renal failurelikely from mild dehydration from diuresis. Patient has been making urine at the bedside. We did not obtain any bladder scan to see if there is retention. Lethargy/unresponsivenessCODE BLUE was called but no CPR was performed as patient never lost pulse. Comorbid conditions: Hypertension Diabetes Coronary artery disease CHF COPD Reports he thinks he has asthma. Sleep apneahe states he was prescribed C Pap machine but he doesn't really use it because of discomfort. Chronic bilateral lower extremity lymphedemafor which he uses some pumping device on a daily basis Obesity Plan: Patient was immediately placed on BiPAP initially. treatment given with Solu-Medrol. Minimal improvement. He then had acute unresponsiveness with worsening respiratory distress and was intubated at the bedside by drupal architect. We had obtained EKG. Personally reviewed. Sinus tachycardia with no acute ST T changes. Chest x-ray will be performed postintubation. ABG postintubation. Care is transferred to critical care team. Critical care time 35 minutes Haider Galicia MD Feb 26, 2017 01:14
[2017-02-26] MEDS ORDERED: PROPOFOL 1000 MG/100 ML INJ 100 ML IV SCH ×2 (01:15→01:30)
--- NOTE | 2017-02-26 01:16 | PD.PROCEDR ---
Procedure Note Procedure PROCEDURE NOTE PROCEDURE: Endotracheal intubation INDICATION: Acute respiratory failure DETAILS OF PROCEDURE: The patient was placed in optimal position and preoxygenated with 100% FiO2 via [id number] and oropharyngeal airway. Oximeter oxygen saturation of 90% was obtained prior to laryngoscopy. The patient was administered Etomidate 20 mg IV for sedation and Rocuronium 50 mg IV. Laryngoscopy was performed with a 4 Glidescope blade and there was large amount of brown secretions in airway that were suctioned and grade I view was obtained but airway was anterior and there is edema of bilateral arytenoids with particularly prominent violaceous edematous appearance of R arytenoid. Difficult to pass anterior to these swollen arytenoids using the glidescope stylet so bagged with OPA. A 4 Gallego laryngoscope blade was used and there was grade III/IV view was obtained and attempted to pass ETT but resulted in esophageal intubation with no color change and sounds auscultated over stomach so ETT was removed. Glidescope [address] Rivera and I provided continuous suctioning and cricoid pressure. ETT 7.5 was then used and passed by Dr. Rivera. Correct placement was confirmed with colorimetric CO2 detector. Breath sounds were equal bilaterally. No sounds auscultated over the stomach. The endotracheal tube was secured with a commercial tube khanna at a depth of 23 cm at the lips. The patient was connected to the ventilator. The patient tolerated the procedure well without any apparent complication. Oxygen saturations were maintained greater than 78% at all times. Stat chest x-ray was ordered. Marzena Pleitez MD Feb 26, 2017 01:16
[2017-02-26] MEDS ORDERED: SODIUM CHLOR 0.9% 1000 ML INJ 1,000 ML IV SCH (01:18)
[2017-02-26] MEDS ORDERED: CHLORHEXIDINE GLUCONATE 2 % 1 PACK (2 CLOTHS) TOP PRN (01:30)
[2017-02-26] MEDS ORDERED: RESP: ALBUTEROL 2.5 MG/3 ML NEB (PRN) INH (01:30)
[2017-02-26] MEDS ORDERED: ONDANSETRON HCL 4 MG/2 ML VIAL IV PRN (01:30)
[2017-02-26] MEDS ORDERED: MISCELLANEOUS NURSING INFORMATION XX SCH (01:30)
[2017-02-26] MEDS ORDERED: ACETAMINOPHEN 325 MG TAB PO PRN (01:30)
--- NOTE | 2017-02-26 01:35 | HHI.PR ---
Addendum to Inpatient Note Addendum Reason: Additional Documentation Additional Information S: Resident team and received page regarding CODE BLUE in emergency department room F68 at 1:03 AM. Arrived at patient's bedside at 1:[address] Rivera, Dr. Pleitez at bedside preparing to intubate. Asked if there is anything we could do to help. Stayed at bedside until patient was intubated and transferred to intensive care unit. While patient was awake, reported shortness of breath and denied chest pain. O: Patient was tachycardic to the 150s Gen.: Belly breathing, respiratory distress A/P: Intubated and transferred to intensive care unit Patient seen and discussed with Raul Rosado MD R1 Feb 26, 2017 01:35
--- NOTE | 2017-02-26 02:07 | PD.CONS ---
[facility] Service Critical Care Medicine Consult Requested By Dr. Galicia Reason for Consult Respiratory distress Primary Care Physician Unknown History of Present Illness Responded to [facility] overhead. Upon arrival to pod discovered that patient was awake and normotensive, with sinus tachycardia in the 150s in severe respiratory distress. He had not lost a pulse but [facility] had been called to facilitate rapid evaluation and stabilization. 76-year-old male with past history of obesity, COPD, obstructive sleep apnea on CPAP, CHF, peripheral neuropathy, hypertension, diabetes, hyperlipidemia, obesity who receives medical care at the [facility]. He presented to [facility] emergency department 02/25/17 with falls and difficulty with balance. He also reported that he was having shortness of breath and cough for several days. Was not febrile in hospital. On the day of admission he had some chest pain across his chest. Troponins negative. He was treated for pneumonia with Rocephin and azithromycin. He was placed on steroids Solu-Medrol 60 mg IV every 6 hours. Received Lasix at about 6 PM on due to concern for volume overload. Echo had poor images but systolic function appeared reduced. Tonight he developed acutely worsening shortness of breath and Dr. Galicia presented to the emergency Department to evaluate him where he was found to be tachypneic and wheezing. He was given a neb and preparations were being made to place him on BiPAP. He was becoming less responsive and was looking upward when I arrived and respiratory was placing on Bipap. He was in extremis and it was felt he would need emergent intubation prior to transfer to ICU. He denied chest pain. He was preoxygenated on Bipap, did seem to become more alert and nodded that he agreed with proceeding with intubation. He was intubated in F pod and then transferred to [facility]. Upon arrival to [facility] he was in atrial fibrillation in the 130s. SBP was 90/50 then 64/40. Central line was placed and he converted to sinus tachycadia in 101-130s. Subsequently he was normotensive with MAP 71. He was also sedated with propofol during the hypotension, improved after transition to fentanyl drip. Review of Systems ROS Limitations: Clinical Condition, Intubated Past Family Social History Allergies: Coded Allergies: Bupropion (Verified Allergy, Unknown, 02/24/17) Hydrocodone (Verified Allergy, Unknown, 02/24/17) Terazosin (Verified Allergy, Unknown, 02/24/17) Uncoded Allergies: ZYBAN (Allergy, Severe, 10/22/15) Past Medical History Patient unable to provide history due to clinical condition. Past medical history obtained from EMR Coronary artery disease Chronic systolic heart failure Hypertension COPD Obstructive sleep apnea Diabetes Peripheral neuropathy Osteoporosis Hyperlipidemia Allergic rhinitis Obesity Lymphedema Past Surgical History Patient unable to provide history due to clinical condition. Past medical history obtained from EMR Right knee surgery Left wrist surgery Hemorrhoidectomy Fistula repair Tonsillectomy Reported Medications Symbicort 160/4.52 puffs inhaled twice a day Doxazosin 8 by mouth daily at bedtime Lisinopril 40 g by mouth daily Triamcinolone 0.1% topical twice a day Gabapentin 6 mg by mouth 3 times a day Spiriva 18 g inhaled daily at bedtime Lac-Hydrin topical twice a day Albuterol 2 puffs inhaled 4 times a day Metoprolol 200 mg XL by mouth daily Risedronate 35 mg by mouth every 7 days Flonase 2 sprays each nares daily PreviDent daily at bedtime Atorvastatin 80 mg by mouth daily at bedtime Insulin sliding scale Lantus 35 units subcutaneous twice a day Aspirin 81 mg by mouth daily at bedtime Calcium carbonate/vitamin D one tab by mouth daily Cetirizine 5 mill grams by mouth daily HCTZ 12.5 mill grams by mouth daily Family History Patient unable to provide history due to clinical condition. Past medical history obtained from EMR Reports his father had arrhythmias. Reports mother had coronary artery disease. Social History Patient unable to provide history due to clinical condition. Past medical history obtained from EMR He used to smoke cigarettes, quit in 1999. Denies any alcohol abuse or drug abuse. Physical Exam Vital Signs Vital Signs Date Time Temp Pulse Resp B/P Pulse Ox O2 Delivery O2 Flow Rate FiO2 02/26/17 00:30 96 6.00 02/25/17 23:56 97.6 129 22 109/58 93 02/25/17 19:29 97.6 108 20 112/57 97 02/25/17 19:24 95 Nasal Cannula 2.00 02/25/17 15:35 97.5 111 20 142/64 96 02/25/17 11:19 98.0 120 20 129/60 96 02/25/17 09:29 98 Nasal Cannula 2.00 02/25/17 08:00 85 02/25/17 07:50 97.5 89 16 144/65 97 02/25/17 04:09 97.6 18 156/67 95 02/25/17 03:50 96 Nasal Cannula 2.00 Physical Exam GENERAL: Obese male sitting up in the ED gurney, tachypnea, increased work of breathing. SKIN: Dry, cool peripherally HEAD: Atraumatic. Normocephalic. EYES: Pupils equal and round 2mm and reactive. No scleral icterus. No injection or drainage. ENT: BiPAP mask in place NECK: Trachea midline. Unable to appreciate JVD but limited due to body habitus CARDIOVASCULAR: Regular, tachycardic 140s to 150s, sinus tachycardia on monitor. No murmurs rubs or gallops appreciated. RESPIRATORY: Tachypneic with severely increased work of breathing and accessory muscle use. Bilateral expiratory wheezing no Rales or rhonchi. GASTROINTESTINAL: Abdomen obese, protuberant, small umbilical reducible hernia. Bowel sounds present and active. No tenderness MUSCULOSKELETAL: Extremities without clubbing, cyanosis. There is 2+ pitting bilateral lower extremity edema up to knee. There are venous stasis changes. No palpable calf cords. Abrasion over left knee, wound over left jalloh, no fluctuance. NEUROLOGICAL: Initially minimally responsive, did improve some while preoxygenating on Bipap and followed commands with all extremities and nodded in agreement to intubation. Could not speak due to severe respiratory distress Laboratory Laboratory Tests Test 02/25/17 02/25/17 02/25/17 05:28 12:18 13:01 White Blood Count 7.1 Red Blood Count 3.40 Hemoglobin 10.1 Hematocrit 31.3 Mean Corpuscular Volume 92.0 Mean Corpuscular Hemoglobin 29.7 Mean Corpuscular Hemoglobin 32.2 Concent Red Cell Distribution Width 14.4 Platelet Count 177 Mean Platelet Volume 8.5 Neutrophils (%) (Auto) 90.9 Lymphocytes (%) (Auto) 6.2 Monocytes (%) (Auto) 2.3 Eosinophils (%) (Auto) 0.3 Basophils (%) (Auto) 0.3 Neutrophils # (Auto) 6.5 Lymphocytes # (Auto) 0.4 Monocytes # (Auto) 0.2 Eosinophils # (Auto) 0.0 Basophils # (Auto) 0.0 CBC Comment DIFF FINAL Differential Comment Sodium Level 137 Potassium Level 5.1 Chloride Level 104 Carbon Dioxide Level 23.9 Anion Gap 9 Blood Urea Nitrogen 36 Creatinine 2.08 Estimat Glomerular Filtration 31 Rate Random Glucose 279 Hemoglobin A1c 8.6 Calcium Level 8.8 Total Creatine Kinase 39 53 Troponin I 0.03 0.03 Blood Gas Puncture Site RT RADIAL Blood Gas Patient Temperature 98.6 Blood Gas HCO3 22 Blood Gas Base Excess -3.9 Blood Gas Oxygen Saturation 94 Arterial Blood pH 7.30 Arterial Blood Partial 45 Pressure CO2 Arterial Blood Partial 84 Pressure O2 Arterial Blood Oxygen Content 14.3 Arterial Blood 1.2 Carboxyhemoglobin Arterial Blood Methemoglobin 0.5 Blood Gas Hemoglobin 10.8 Oxygen Delivery Device NASAL CANNULA Blood Gas Liter Flow 2 Date/Time Procedure Status Source Growth 02/25/17 16:45 Influenza Types A,B Antigen (CHIOMA) - Final Complete Nasal Washing NEGATIVE FOR FLU A AND B ANTIGEN.... 02/25/17 15:24 Legionella Antigen - Final Complete Urine Clean Catch PRESUMPTIVE NEGATIVE FOR LEGIONELLA P... 02/25/17 15:24 Streptococcus pneumoniae Antigen (M - Final Complete Urine Clean Catch PRESUMPTIVE NEGATIVE FOR STREPTOCOCCU... 02/25/17 14:00 Gram Stain Worksheet Sputum Expectorated Sputum Pending 02/25/17 14:00 Sputum Culture Worksheet Sputum Expectorated Sputum Pending 02/24/17 18:40 Aerobic Blood Culture - Preliminary Resulted Blood Peripheral NO GROWTH IN 1 DAY 02/24/17 18:40 Anaerobic Blood Culture - Preliminary Resulted Blood Peripheral NO GROWTH IN 1 DAY Result Diagram: 02/25/17 0528 02/25/1728 Assessment and Plan Assessment and Plan NEURO: Acute encephalopathy - secondary to hypercapnea and hypoxemia Was hypotensive on propofol. Discontinue propofol. Fentanyl for analgosedation Versed prn. MRI brain 02/24 - no acute abnormality MRI C-spinesmall central protrusion at c3/C4 and C4-C5 without canal stenosis RESP: Acute hypoxemic and hypercapnic respiratory failure Acute COPD exacerbation Objective sleep apnea History of tobacco abuse Profound wheezing prior to and after intubation. Ventilator bundle. DuoNeb every 4 hours. Albuterol every 2 hours when necessary Solumedrol 60 mg IV every 6 hours Airway edema, particularly large arytenoid edema noted on intubation with anterior airway. Intubated with Glidescope and 7.5 ETT. CV: Paroxysmal atrial fibrillation Hypertension Hyperlipidemia History of coronary artery disease Chronic systolic heart failure NSTEMI Serial cardiac markers and EKG Continue aspirin Heparin drip due to paroxysmal A fib/NSTEMI Check BNP. CVP is 18 may ultimately need diuresis, but will first obtain stat labs and watch hemodynamics as he was initially hypotensive on Propofol. He later had recurrent hypotension and remained in sinus rhythm. So ordered art line and placement on Flotrac for hemodynamic monitoring to assist with differentiation of cardiogenic vs septic shock. Obtain ScvO2. Troponins ordered...were 14.5 with CKMB 6 Aspirin 324 mg now. Continue atorvastatin 80 mg daily at bedtime Unable to use betablocker due to shock. Cardiology consult. GI: Nothing by mouth. OGT tube to LIWS Colace for bowel regimen FEN/RENAL: Insert Barrios. Monitor intake and output. Monitor electrolytes Replace electrolytes as indicated per ICU electrolyte replacement protocol. ID: Acute community acquired pneumonia Septic shock Zosyn/azithromycin. Will repeat sputum culture now. Microbiology: lood culture 2 setsno growth to date 02/25blood culturepending 02/25urine Legionella and pneumococcal antigen negative 02/25influenza screen negative HEME: Obtain CBC and coags ENDO: Poorly controlled diabetes mellitus Insulin drip algorithm #2 PROPH: Protonix 40 mg IV daily for stress ulcer prophylaxis. Heparin drip as per above ACCESS: Right subclavian central venous line placed 02/26 #1 Full code Critical care time 90 minutes exclusive of separately billable procedures. Addendum: Patient continued to be hypotensive despite fluid boluses. Levophed was started and rapidly increased to 20 mcg/m. Additionally vasopressin was added. Troponin continued to increase. 2-D echo showed EF 25-30% with diffuse hypokinesis and probable moderate aortic stenosis. After discussion with Dr. duenas cardiology. Decision was made to float a Wolsey-Luisa catheter. PA pressure was found to be 82/41 with mean 59. CO 6.3, CI 2.8 with SVR 612, SVRI 1370. SV 76, SVI 36.1 Additional CCT excluding procedure time is 35 MIN Marzena Pleitez MD Feb 26, 2017 02:07 Tangela Pederson MD Feb 26, 2017 17:28
[2017-02-26] MEDS ORDERED: fentaNYL DRIP 250 ML IV SCH (02:15)
--- NOTE | 2017-02-26 02:36 | PD.PROCEDR ---
Procedure Note Procedure DATE: 02/26/17 CENTRAL LINE PLACEMENT: Right subclavian vein. INDICATION: Central venous access CONSENT Procedure was done emergently as patient is in extremis and the need of central venous access. DESCRIPTION OF THE PROCEDURE The patient was placed in supine position, mild Trendelenburg. The skin was cleansed with Chloraprep 4. Additional barrier precautions included large sterile drape, sterile gloves, sterile gown, face mask, and hat. 1 % lidocaine was used for local anesthesia. Under direct ultrasound guidance and on single attempt, the vein was accessed with an introducer needle. The guide wire was advanced and the tract was dilated. Using Seldinger technique a 7 Latvian 20 cm antimicrobial coated triple-lumen catheter was advanced to a depth of 18 centimeters. The guide wire was removed. All ports had good return of dark venous blood and flushed easily with saline. The central line was secured with 2.0 silk. A sterile dressing with antibiotic disc was applied. ESTIMATED BLOOD LOSS: Minimal COMPLICATIONS: No apparent complications. STAT chest x-ray demonstrated satisfactory central venous line position without apparent complication Marzena Pleitez MD Feb 26, 2017 02:36
[2017-02-26 02:52] LABS: AUTOMATED NEUTROPHIL # 10.5 TH/MM3 (1.8-7.7); BASOPHIL # 0.1 TH/MM3 (0-0.2); HEMATOCRIT 32.9 % (39.0-51.0); HEMO FLAGS DIFF FINAL; LYMPH % 2.3 % (9.0-44.0); LYMPHOCYTE # 0.3 TH/MM3 (1.0-4.8); MEAN CELL VOLUME 93.3 FL (80.0-100.0); MEAN CORPUSCULAR HEMOGLOBIN 30.4 PG (27.0-34.0); MEAN CORPUSCULAR HGB CONC 32.6 % (32.0-36.0); MONO % 2.8 % (0.0-8.0); NEUT % 93.9 % (16.0-70.0); PLATELET COUNT 213 TH/MM3 (150-450); RED BLOOD COUNT 3.53 MIL/MM3 (4.50-5.90); RED CELL DISTRIBUTION WIDTH 14.6 % (11.6-17.2); WHITE BLOOD COUNT 11.1 TH/MM3 (4.0-11.0)
[2017-02-26 02:55] LABS: BLOOD GAS BASE EXCESS -4.9 mmol/L (-2-2); BLOOD GAS CARBOXYHEMOGLOBIN 1.3 % (0-4); BLOOD GAS HCO3 22 mmol/L (22-26); BLOOD GAS METHEMOGLOBIN 1.2 % (0-2); BLOOD GAS O2 HGB SATURATION 97 % (90-100); BLOOD GAS OXYGEN CONTENT 15.5 Vol % (12.0-20.0); BLOOD GAS PCO2 64 mmHg (38-42); BLOOD GAS PO2 252 mmHg (61-120); TEMP CORR TO 98.6
[2017-02-26 02:56] LABS: CRITICAL VALUE YES; DRAW SITE RT RADIAL; FIO2 100 %; NUMBER OF ARTERIAL PUNCTURES 1; OXYGEN DEVICE VENTILATOR; STAT NO; ULNAR PULSE PRESENT; VENT SETTINGS AC/14/550/PEEP5
[2017-02-26 03:03] LABS: APTT (PATIENT) 33.7 SEC (24.3-30.1); PROTHROMBIN TIME - PATIENT 11.5 SEC (9.8-11.6)
[2017-02-26] MEDS: RESP: ALBUTEROL 2.5 MG/IPRATROPIUM 0.5 MG NEB (SCH) INH ×5 (03:05→20:00)
[2017-02-26] MEDS ORDERED: MIDAZOLAM HCL 2 MG/2 ML VIAL IV PUSH PRN (03:15)
[2017-02-26 03:23] LABS: ANION GAP 9 MEQ/L (5-15)
[2017-02-26 03:26] LABS: ALKALINE PHOSPHATASE 103 U/L (45-117); ALT (GPT) 28 U/L (12-78); AST (GOT) 63 U/L (15-37); BICARBONATE 25.3 MEQ/L (21.0-32.0); BLOOD UREA NITROGEN 51 MG/DL (7-18); CHLORIDE 96 MEQ/L (98-107); CREATINE KINASE 448 U/L (39-308); GLOMERULAR FILTRATION RATE 23 ML/MIN (>89); MAGNESIUM 2.1 MG/DL (1.5-2.5); POTASSIUM 5.6 MEQ/L (3.5-5.1); SODIUM (NA) 130 MEQ/L (136-145); TOTAL BILIRUBIN ADULT 0.7 MG/DL (0.2-1.0)
[2017-02-26 03:45] LABS: CKMB 27.1 NG/ML (0.5-3.6)
[2017-02-26] MEDS: MIDAZOLAM 100 MG/NS 100 ML DRIP Premix IV SCH ×2 (03:56→19:47)
[2017-02-26] MEDS: CHLORHEXIDINE GLUCONATE 2 % 1 PACK (2 CLOTHS) TOP SCH ×2 (03:56→20:34)
[2017-02-26] MEDS: MAGNESIUM SULFATE 1 GM PREMIX 100 ML IV SCH ×2 (03:56→05:04)
[2017-02-26] MEDS: fentaNYL 2,500 MCG/NS 250 ML IV SCH (03:56)
[2017-02-26] MEDS: HEPARIN-D5W INJ 250 ML IV SCH ×2 (04:05→20:44)
[2017-02-26 04:07] LABS: BLOOD GAS BASE EXCESS -3.7 mmol/L (-2-2); BLOOD GAS CARBOXYHEMOGLOBIN 1.5 % (0-4); BLOOD GAS HCO3 23 mmol/L (22-26); BLOOD GAS METHEMOGLOBIN 1.1 % (0-2); BLOOD GAS O2 HGB SATURATION 96 % (90-100); BLOOD GAS OXYGEN CONTENT 13.8 Vol % (12.0-20.0); BLOOD GAS PCO2 57 mmHg (38-42); BLOOD GAS PO2 144 mmHg (61-120); CRITICAL VALUE YES; DRAW SITE RT RADIAL; FIO2 65 %; NUMBER OF ARTERIAL PUNCTURES 1; OXYGEN DEVICE VENTILATOR; TEMP CORR TO 98.6; ULNAR PULSE PRESENT; VENT SETTINGS AC/12/600/PEEP 8
[2017-02-26 04:08] LABS: STAT NO
--- NOTE | 2017-02-26 04:29 | RADRPT ---
EXAM DATE/TIME: 02/26/2017 02:09 [place] COMPARISON: CHEST SINGLE AP, February 25, 2017, 12:04. INDICATIONS : E-T tube placement. MEDICAL HISTORY : None. SURGICAL HISTORY : None. ENCOUNTER: Subsequent ACUITY: 2 days PAIN SCORE: Non-responsive. LOCATION: Bilateral chest FINDINGS: A single view of the chest demonstrates diffuse bilateral airspace disease. Cardiomegaly with bibasil ar densities and small pleural effusions. Right subclavian central line with tip in the caval atrial junction. The cardiomediastinal contours are unremarkable. Osseous structures are intact. CONCLUSION: 1. Cardiomegaly with bilateral pulmonary edema, likely CHF. 2. Bilateral pleural effusions. Neto Duenas MD on February 26, 2017 at 4:26 Board Certified Radiologist. This report was verified electronically.
[2017-02-26 04:38] LABS: BACTERIA, URINE RARE /hpf; BLOOD, URINE NEG (NEG); COMMENT (UR) CATH-CULTURE IND; CULTURE IF INDICATED CATH CULTURE IND; GLUCOSE,URINE 1000 mg/dL (NEG); HYALINE CAST, URINE 1 /lpf (RARE); KETONE, URINE NEG (NEG); NITRITE,URINE NEG (NEG); SQUAMOUS EPITHELIAL CELL URINE <1 /hpf (0-5); URINE COLOR YELLOW (YELLW/STRAW)
[2017-02-26] MEDS ORDERED: MISC INFORMATION XX ONE (07:30)
[2017-02-26] MEDS ORDERED: DEXTROSE 50% IN WATER 50 ML VIAL(D50) IV PUSH PRN ×2 (07:30→15:00)
[2017-02-26] MEDS ORDERED: ASPIRIN 81 MG CHEW TAB CHEW ONE (07:30)
[2017-02-26] MEDS ORDERED: INSULIN ASPART 1,000 UNITS/10 ML VIAL SQ SCH (08:00)
[2017-02-26 08:05] LABS: BLOOD GAS VENOUS HCO3 24 mmol/L (22-26); BLOOD GAS VENOUS O2 CONTENT 9.3 Vol % (9.0-17.0); BLOOD GAS VENOUS O2 HGB SAT 70 % (70-76); BLOOD GAS VENOUS PCO2 58 mmHg (44-48); BLOOD GAS VENOUS PO2 43 mmHg (35-40); BLOOD GAS VENOUS pH 7.23 (7.360-7.400); TEMP CORR TO 98.6
[2017-02-26 08:06] LABS: CRITICAL VALUE YES; DRAW SITE CENTRAL LINE; FIO2 65 %; OXYGEN DEVICE VENTILATOR; STAT YES
[2017-02-26 08:14] LABS: HDL CHOLESTEROL 67.8 MG/DL (40.0-60.0)
[2017-02-26] MEDS ORDERED: SODIUM BICARBONATE 8.4% INJ 50 MEQ/50 ML SYR ONE ×2 (08:19)
--- NOTE | 2017-02-26 08:23 | PD.CONS ---
HPI Service CV Consult Requested By Reason for Consult NSTEMI Primary Care Physician Unknown History of Present Illness Here with COPD, CAD, chronic systolic heart failure and hyperlipidemia admitted for shortness of breath and respiratory failure. Review of records reveals that he initially presented with falls and shortness of breath. He also said that on the day of his admission he had chest pain upon wakening the radiated across his chest. He is a patient at the [facility] ([facility]) Review of Systems ROS Limitations: Intubated ([facility]) Past Family Social History Allergies: Coded Allergies: Bupropion (Verified Allergy, Unknown, 02/24/17) Hydrocodone (Verified Allergy, Unknown, 02/24/17) Terazosin (Verified Allergy, Unknown, 02/24/17) Uncoded Allergies: ZYBAN (Allergy, Severe, 10/22/15) Past Medical History Patient unable to provide history due to clinical condition. Past medical history obtained from EMR Coronary artery disease Chronic systolic heart failure Hypertension COPD Obstructive sleep apnea Diabetes Peripheral neuropathy Osteoporosis Hyperlipidemia Allergic rhinitis Obesity Lymphedema Past Surgical History Patient unable to provide history due to clinical condition. Past medical history obtained from EMR Right knee surgery Left wrist surgery Hemorrhoidectomy Fistula repair Tonsillectomy Reported Medications Reported Meds & Active Scripts Active Reported Atorvastatin (Atorvastatin Calcium) 80 Mg Tab 80 Mg PO HS Aspirin EC (Aspirin) 81 Mg Tabdr 81 Mg PO HS Toprol XL (Metoprolol Succinate) 200 Mg Tab 200 Mg PO DAILY Lisinopril 40 Mg Tab 40 Mg PO DAILY Hydrochlorothiazide 12.5 Mg Tab 12.5 Mg PO DAILY Cetirizine (Cetirizine HCl) 5 Mg Tab 5 Mg PO DAILY Spiriva Handihaler (Tiotropium Inh) 18 Mcg Cap 18 Mcg INH HS 1 capsule = 18 mcg Ventolin Hfa 18 GM Inh (Albuterol Sulfate) 90 Mcg/Act Aer 2 Puff INH QID PRN Prevident 5000 Enamel Pro 1.1-5 % (Sodium Fluoride-Potassium Nitr) 1 Pst Pst 1 Applic DENTAL HS Lantus Inj (Insulin Glargine) 1,000 Unit/10 Ml Vial 35 Units SQ BID Risedronate DR (Risedronate) 35 Mg Tab 35 Mg PO Q7D ON SUNDAYS Oyster Calcium/Vitamin D (Calcium Carbonate-Vitamin D) 250-125 Mg-Unit Tab 1 Tab PO DAILY Doxazosin (Doxazosin Mesylate) 8 Mg Tab 8 Mg PO HS Symbicort Inh (Budesonide/Formoterol Fumarate) 160-4.5 Mcg/Act Aero 2 Puff INH BID Novolog Inj (Insulin Aspart) 1,000 Unit/10 Ml Vial 15 Units SQ TID Albuterol Neb (Albuterol Sulfate) 2.5 Mg/3 Ml Neb 2.5 Mg NEB QID NEB PRN Gabapentin 600 Mg Tab 600 Mg PO TID Lac-Hydrin Five (Lactic Acid (Ammonium Lactate)) 5 % Lot 1 Applic TOPICAL BID Triderm Topical (Triamcinolone Topical) 0.1 % Cream 1 Applic TOPICAL BID Flonase Nasal [place] (Fluticasone Nasal [place]) 50 Mcg/Act [place] 2 Spr EACH NARE DAILY Active Ordered Medications Current Medications Medications (Trade) Dose Ordered Sig/Steve Route Start Time Stop Time Status Last Admin (NS Flush) 2 ml UNSCH PRN IV FLUSH 02/24/17 22:00 (NS Flush) 2 ml BID IV FLUSH 02/25/17 09:00 02/25/17 21:03 (Narcan Inj) 0.4 mg UNSCH PRN IV 02/24/17 22:00 (D50w (Vial) Inj) 25 ml UNSCH PRN IV PUSH 02/25/17 07:30 Glucagon 1 mg 1 mg UNSCH PRN OTHER 02/25/17 07:30 Ceftriaxone Sodium 1000 mg/ Sodium Chloride 100 ml @ 200 mls/hr Q24H IV 02/25/17 10:00 02/25/17 10:28 (Zithromax Inj/ NS 250 ml Inj) 250 ml @ 250 mls/hr Q24H IV 02/25/17 09:00 02/25/17 08:49 (SoluMEDROL INJ) 60 mg Q6HR IV PUSH 02/25/17 12:15 02/26/17 05:04 (Mucinex Er) 600 mg BID PO 02/25/17 13:00 02/25/17 20:51 (Tessalon) 200 mg Q8H PRN PO 02/25/17 13:00 (Lasix Inj) 40 mg BID@09,18 IV PUSH 02/25/17 18:00 Hold 02/25/17 17:44 (Ecotrin Ec) 81 mg HS PO 02/25/17 21:00 02/25/17 21:03 (Lipitor) 80 mg HS PO 02/25/17 21:00 02/25/17 21:03 (Symbicort 160-4.5 Inh) 2 puff BID INH 02/25/17 21:00 02/25/17 20:51 (Toprol Xl) 200 mg DAILY PO 02/26/17 09:00 Future Hold Chlorhexidine Gluconate 15 ml 15 ml BID@08,20 MT 02/26/17 08:00 (NS 1000 ml Inj) 1,000 ml @ 84 mls/hr [id number] IV 02/26/17 01:18 Hold 02/26/17 01:18 (Tylenol) 650 mg Q6H PRN PO 02/26/17 01:30 (fentaNYL INJ) 50 mcg Q1H PRN IV PUSH 02/26/17 01:30 02/26/17 03:57 (Protonix Inj) 40 mg DAILY IV 02/26/17 09:00 (Zofran Inj) 4 mg Q6H PRN IV 02/26/17 01:30 (Colace) 100 mg BID PO 02/26/17 09:00 Miscellaneous Information 1 Q361D XX 02/26/17 01:30 02/26/17 01:30 (Chlorhexidine 2% Cloth) 3 pack Taper DAILY@04 TOP 02/26/17 04:00 02/22/18 03:59 02/26/17 03:56 Chlorhexidine Gluconate 3 pack 3 pack UNSCH PRN TOP 02/26/17 01:30 Propofol 100 ml @ 0 mls/hr TITRATE IV 02/26/17 01:30 Hold Fentanyl Citrate 250 ml @ 0 mls/hr TITRATE IV 02/26/17 03:00 02/26/17 03:56 (Versed Inj) 100 ml @ 0 mls/hr TITRATE IV 02/26/17 03:00 02/26/17 03:56 (Heparin Inj) 5,000 units UNSCH PRN IV 02/26/17 09:00 Heparin Sodium (Porcine) 2500 units 2,500 units UNSCH PRN IV 02/26/17 09:00 (Heparin-D5W Inj) 250 ml @ 0 mls/hr TITRATE IV 02/26/17 03:00 02/26/17 04:05 Midazolam HCl 2 mg 2 mg Q15M PRN IV PUSH 02/26/17 03:15 (NovoLIN R (IV INFUSION)/NS Inj) 100 ml @ 0 mls/hr TITRATE IV 02/26/17 07:30 UNV (D50w (Vial) Inj) 25 ml UNSCH PRN IV PUSH 02/26/17 07:30 UNV Miscellaneous Information 1 ONCE ONCE XX 02/26/17 07:30 02/26/17 07:31 UNV (Aspirin Chew) 324 mg ONCE ONCE CHEW 02/26/17 07:30 02/26/17 07:31 UNV Family History Patient unable to provide history due to clinical condition. Past medical history obtained from EMR Reports his father had arrhythmias. Reports mother had coronary artery disease. Social History Patient unable to provide history due to clinical condition. Past medical history obtained from EMR He used to smoke cigarettes, quit in 1999. Denies any alcohol abuse or drug abuse. ([facility]) Physical Exam Vital Signs Vital Signs Date Time Temp Pulse Resp B/P Pulse Ox O2 Delivery O2 Flow Rate FiO2 02/26/17 06:00 98 02/26/17 04:45 85/53 02/26/17 04:33 100 65 02/26/17 04:00 104 02/26/17 04:00 65 02/26/17 04:00 98.5 104 12 81/45 100 02/26/17 03:39 65 02/26/17 03:15 106/55 02/26/17 02:22 138 28 138/78 87 02/26/17 02:21 140 32 119/68 85 02/26/17 02:00 98.4 153 16 94/58 100 02/26/17 01:35 100 100 02/26/17 01:25 99 100 02/26/17 00:50 96 100 02/26/17 00:30 96 6.00 02/25/17 23:56 97.6 129 22 109/58 93 02/25/17 19:29 97.6 108 20 112/57 97 02/25/17 19:24 95 Nasal Cannula 2.00 02/25/17 15:35 97.5 111 20 142/64 96 02/25/17 11:19 98.0 120 20 129/60 96 02/25/17 09:29 98 Nasal Cannula 2.00 Physical Exam GENERAL: no apparent distress. NECK: No JVD. No carotid bruit. CARDIOVASCULAR: Regular rate and rhythm. S1/S2 no murmur, rub, or gallop. RESPIRATORY: No accessory muscle use. diminished to auscultation. GASTROINTESTINAL: Abdomen soft, non-tender, nondistended. MUSCULOSKELETAL: edema. Laboratory Laboratory Tests Test 02/25/17 02/25/17 02/26/17 02/26/17 12:18 13:01 02:15 02:40 Blood Gas Puncture Site RT RADIAL Blood Gas Patient Temperature 98.6 Blood Gas HCO3 22 Blood Gas Base Excess -3.9 Blood Gas Oxygen Saturation 94 Arterial Blood pH 7.30 Arterial Blood Partial 45 Pressure CO2 Arterial Blood Partial 84 Pressure O2 Arterial Blood Oxygen Content 14.3 Arterial Blood 1.2 Carboxyhemoglobin Arterial Blood Methemoglobin 0.5 Blood Gas Hemoglobin 10.8 Oxygen Delivery Device NASAL CANNULA Blood Gas Liter Flow 2 Total Creatine Kinase 53 448 Troponin I 0.03 14.50 Urine Color YELLOW Urine Turbidity HAZY Urine pH 5.0 Urine Specific [place] 1.012 Urine Protein NEG Urine Glucose (UA) 1000 Urine Ketones NEG Urine Occult Blood NEG Urine Nitrite NEG Urine Bilirubin NEG Urine Urobilinogen LESS THAN 2.0 Urine Leukocyte Esterase NEG Urine RBC 1 Urine WBC 1 Urine Squamous Epithelial <1 Cells Urine Amorphous Sediment RARE Urine Bacteria RARE Urine Hyaline Casts 1 Microscopic Urinalysis Comment CATH-CULTURE IND White Blood Count 11.1 Red Blood Count 3.53 Hemoglobin 10.7 Hematocrit 32.9 Mean Corpuscular Volume 93.3 Mean Corpuscular Hemoglobin 30.4 Mean Corpuscular Hemoglobin 32.6 Concent Red Cell Distribution Width 14.6 Platelet Count 213 Mean Platelet Volume 8.9 Neutrophils (%) (Auto) 93.9 Lymphocytes (%) (Auto) 2.3 Monocytes (%) (Auto) 2.8 Eosinophils (%) (Auto) 0.0 Basophils (%) (Auto) 1.0 Neutrophils # (Auto) 10.5 Lymphocytes # (Auto) 0.3 Monocytes # (Auto) 0.3 Eosinophils # (Auto) 0.0 Basophils # (Auto) 0.1 CBC Comment DIFF FINAL Differential Comment Prothrombin Time 11.5 Prothromb Time International 1.0 Ratio Activated Partial 33.7 Thromboplast Time Sodium Level 130 Potassium Level 5.6 Chloride Level 96 Carbon Dioxide Level 25.3 Anion Gap 9 Blood Urea Nitrogen 51 Creatinine 2.72 Estimat Glomerular Filtration 23 Rate Random Glucose 531 Lactic Acid Level 2.9 Calcium Level 8.5 Phosphorus Level 5.5 Magnesium Level 2.1 Total Bilirubin 0.7 Aspartate Amino Transf 63 (AST/SGOT) Alanine Aminotransferase 28 (ALT/SGPT) Alkaline Phosphatase 103 Creatine Kinase MB 27.1 Creatine Kinase MB % 6.0 B-Type Natriuretic Peptide 1421 Total Protein 6.9 Albumin 3.2 Test 02/26/17 02/26/17 02:42 03:50 Blood Gas Puncture Site RT RADIAL RT RADIAL Blood Gas Patient Temperature 98.6 98.6 Blood Gas HCO3 22 23 Blood Gas Base Excess -4.9 -3.7 Blood Gas Oxygen Saturation 97 96 Arterial Blood pH 7.17 7.23 Arterial Blood Partial 64 57 Pressure CO2 Arterial Blood Partial 252 144 Pressure O2 Arterial Blood Oxygen Content 15.5 13.8 Arterial Blood 1.3 1.5 Carboxyhemoglobin Arterial Blood Methemoglobin 1.2 1.1 Blood Gas Hemoglobin 11.0 10.0 Oxygen Delivery Device VENTILATOR VENTILATOR Blood Gas Ventilator Setting AC/14/550/PEEP5 AC/12/600/PEEP 8 Blood Gas Inspired Oxygen 100 65 Date/Time Procedure Status Source Growth 02/26/17 03:20 Gram Stain Received Sputum Endotracheal Pending 02/26/17 03:20 Sputum Culture Received Sputum Endotracheal Pending 02/26/17 02:15 Urine Culture Received Urine Catheterized Urine Pending 02/25/17 16:45 Influenza Types A,B Antigen (CHIOMA) - Final Complete Nasal Washing NEGATIVE FOR FLU A AND B ANTIGEN.... 02/25/17 15:24 Legionella Antigen - Final Complete Urine Clean Catch PRESUMPTIVE NEGATIVE FOR LEGIONELLA P... 02/25/17 15:24 Streptococcus pneumoniae Antigen (M - Final Complete Urine Clean Catch PRESUMPTIVE NEGATIVE FOR STREPTOCOCCU... 02/24/17 18:40 Aerobic Blood Culture - Preliminary Resulted Blood Peripheral NO GROWTH IN 1 DAY 02/24/17 18:40 Anaerobic Blood Culture - Preliminary Resulted Blood Peripheral NO GROWTH IN 1 DAY ([facility]) Result Diagram: 02/26/1723902/26/17239 Assessment and Plan Problem List: (1) NSTEMI (non-ST elevated myocardial infarction) Assessment and Plan He will require cardiac diagnostics when more stable. He is on a good medical regimen now but hypotensive and may have to hold BB.We will follow and plan coronary angiogram when comorbidities improve Acute on chronic systolic heart failure - With the hypotension we will hold diuretic for now. Renal dysfunction - critical care on case ([facility]) Assessment and Plan Acute respiratory distress appears to be multifactorial. PNA, COPD, CHF CHF, acute systolic Cardiomyopathy - EF 25%. Severe PHTN NSTEMI ARF Sepsis At least moderate aortic stenosis. unable to tolerate BB, ERLIN, or diuretic due to hypotension. unclear if hypotension is septic shock or cardiogenic. He is no condition for LHC, especially given his Cr. Vigileo monitoring does not appear to be accurate, estimating CI 4.6 l/min/m2 Would possibly consider Morris-Luisa catheter continue pressor support if cardiogenic etiology, could consider LV augmentation with IABP or Impella support. It would not be helpful for septic shock. (Jong Butts MD) [facility] Feb 26, 2017 08:23 Jong Butts MD Feb 26, 2017 12:00
[2017-02-26] MEDS ORDERED: TERBUTALINE INJ 1 MG/ML AMP SQ PRN (08:30)
[2017-02-26] MEDS ORDERED: SODIUM CHLOR 0.9% 1000 ML INJ 1,000 ML IV ONE (08:30)
[2017-02-26] MEDS ORDERED: SODIUM BICARBONATE 8.4% INJ 50 MEQ/50 ML SYR IV PUSH ONE (08:30)
[2017-02-26] MEDS ORDERED: HEPARIN SODIUM - IV 10,000 UNITS/10 ML VIAL IV PRN ×2 (09:00)
[2017-02-26] MEDS: BUDESONIDE-FORMOTEROL 160/4.5 MCG INHALER INH SCH ×2 (09:00→19:22)
[2017-02-26] MEDS ORDERED: METOPROLOL SUCCINATE 50 MG EXTENDED RELEASE TAB PO SCH (09:00)
[2017-02-26] MEDS: PANTOPRAZOLE SODIUM 40 MG VIAL IV SCH (09:26)
[2017-02-26] MEDS: AZITHROMYCIN INJ 500 MG in SODIUM CHLOR 0.9% 250 ML INJ 250 ML IV SCH (09:28)
[2017-02-26] MEDS: SODIUM CHLORIDE 0.9% FLUSH 10 ML FLUSH IV FLUSH SCH ×2 (09:30→19:40)
[2017-02-26] MEDS: DOCUSATE SODIUM 100 MG CAP PO SCH ×2 (09:30→19:42)
[2017-02-26 09:31] LABS: CKMB 25.1 NG/ML (0.5-3.6)
[2017-02-26] MEDS: PIPERACIL-TAZO 3.375 GM PREMIX 50 ML IV SCH ×3 (09:50→19:43)
[2017-02-26] MEDS: CHLORHEXIDINE 0.12% (ORAL KIT) 15 ML CUP MT SCH ×2 (09:51→19:40)
[2017-02-26] MEDS: NOREPINEPHRINE-DEXTROSE DRIP 250 ML IV SCH ×4 (09:55→20:43)
[2017-02-26] MEDS ORDERED: INSULIN REGULAR (IV INFUSION) 100 UNITS in SODIUM CHLORIDE 0.9% INJ 99 ML IV SCH (10:00)
--- NOTE | 2017-02-26 11:52 | ECHLIM ---
Study Study Date:02/26/2017 STUDY CONCLUSIONS SUMMARY - Left ventricle: The cavity size was dilated. Wall thickness was normal. Systolic function was severely reduced by visual assessment. The estimated ejection fraction was in the range of 25% to 30%. Diffuse hypokinesis. - Aortic valve: Not well visualized. Probably trileaflet; moderately thickened, moderately calcified leaflets. Cusp separation was reduced. Valve mobility was restricted. There was at least moderate stenosis although not well visualized. No valve area or gradient could be obtained. - Right ventricle: The cavity size was mildly dilated. Wall thickness was normal. - Right atrium: The atrium was mildly dilated. - Tricuspid valve: Mild-moderate regurgitation. - Pulmonary arteries: Systolic pressure was severely increased. PA peak pressure: 70mm Hg (S). If LV function is below 40, please consider prescribing an ACEI or ARB or document rationale for non-use. PROCEDURE DATA STUDY STATUS: Elective. Procedure: Transthoracic echocardiography. Image quality was good. Scanning was performed from the parasternal, apical, and subcostal acoustic windows. Study completion: The patient tolerated the procedure well. Transthoracic echocardiography. M-mode, complete 2D, complete spectral Doppler, and color Doppler. Height: Height: 66in. Weight: Weight: 254.5lb. Body mass index: BMI: 41.2kg/m^2. Body surface area: BSA: 2.22m^2. Patient status: Inpatient. CARDIAC ANATOMY LEFT VENTRICLE: The cavity size was dilated. Wall thickness was normal. Systolic function was severely reduced by visual assessment. The estimated ejection fraction was in the range of 25% to 30%. Diffuse hypokinesis. AORTIC VALVE: Not well visualized. Probably trileaflet; moderately thickened, moderately calcified leaflets. Cusp separation was reduced. Valve mobility was restricted. Doppler: There was at least moderate stenosis although not well visualized. No valve area or gradient could be obtained. No regurgitation. AORTA: Aortic root: The aortic root was poorly visualized and normal in size. MITRAL VALVE: Mildly thickened leaflets, . Doppler: Transvalvular velocity was within the normal range. There was no evidence for stenosis. No regurgitation. Peak gradient: 6mm Hg (D). LEFT ATRIUM: The atrium was at the upper limits of normal in size. RIGHT VENTRICLE: The cavity size was mildly dilated. Wall thickness was normal. PULMONIC VALVE: Not visualized. TRICUSPID VALVE: Structurally normal valve. Doppler: Transvalvular velocity was within the normal range. Mild-moderate regurgitation. PULMONARY ARTERY: Systolic pressure was severely increased. RIGHT ATRIUM: The atrium was mildly dilated. PERICARDIUM: There was no pericardial effusion. SYSTEMIC VEINS: Inferior vena cava: The vessel was dilated. Patient weight: 254.5lb _Ejection fraction:_ 65-75% _Fractional shortening:_ 32% up to 5Kg 5-11.5Kg 11.6-22.9Kg 23-45Kg 45-57Kg Aortic Root 7-13 <17 13-22 17-27 17-27 LA diam 6-13 <23 24-38 33-47 37-40 RVID 10-17 7-15 7-15 7-18 8-17 LVIDd 12-22 <32 24-38 33-47 37-40 LVPW 2-4 3-6 5-7 6-8 7-8 IVS 2-4 3-6 5-7 6-8 7-8 BASIC MEASUREMENTS ADULT Normal Left ventricle LV internal dimension, ED, chordal level, *59.1 mm 43-52 PLAX LV internal dimension, ES, chordal level, *49.3 mm 23-38 PLAX Fractional shortening, chordal level, PLAX *17 % >29 LV posterior wall thickness, ED 11.4 mm IVS/LVPW ratio, ED 0.99 <1.3 Ventricular septum Septal thickness, ED 11.3 mm Left atrium Anterior-posterior dimension 34 mm Anterior-posterior dimension index 1.53 cm/m^2 <2.2 DOPPLER MEASUREMENTS ADULT Normal Main pulmonary artery Pressure, S *70 mm Hg =30 Mitral valve Peak E-wave velocity 124 cm/s Peak A-wave velocity 69.6 cm/s Deceleration time *81 ms 150-230 Peak gradient, D 6 mm Hg Peak E/A ratio 1.8 Tricuspid valve Regurgitant peak velocity 352 cm/s Peak RV-RA gradient, S 50 mm Hg Maximal regurgitant velocity 352 cm/s Right ventricle RV pressure, S *70 mm Hg <30 LEGEND: Mean values are shown as u=mean value. Asterisk (*) jacques values outside specified normal range. Prepared and signed by Jong Butts [id number]
[2017-02-26 12:01] LABS: APTT (PATIENT) 117.8 SEC (24.3-30.1)
[2017-02-26 13:16] LABS: LACTIC ACID GHOST NOT REPORTABLE
[2017-02-26] MEDS: INSULIN REGULAR 100 UNITS/100 ML NS ALGORITHM 4 IV SCH ×2 (14:42)
--- NOTE | 2017-02-26 14:48 | EKG ---
Date Performed: 02/26/2017 Time Performed: 13:36:28 PTAGE: 76 years EKG: Sinus rhythm INFERIOR MYOCARDIAL INFARCTION , PROBABLY OLD WITH POSTERIOR EXTENSION ABNORMAL ECG PREVIOUS TRACING : 02/26/2017 02.18 Compared to previous tracing, heart rate has decreased, lat eral ST depression has resolved. DOCTOR: Saroj Beal Interpretating Date/Time 02/26/2017 14:48:18
[2017-02-26 14:52] LABS: APTT (PATIENT) 44.5 SEC (24.3-30.1)
[2017-02-26] MEDS ORDERED: MISC INFORMATION OTHER ONE (15:00)
[2017-02-26 15:05] LABS: CKMB 31.4 NG/ML (0.5-3.6)
[2017-02-26] MEDS ORDERED: ROCURONIUM INJ 50 MG/5 ML VIAL ONE (16:00)
--- NOTE | 2017-02-26 16:29 | PD.CONS ---
HPI Service Nephrology Consult Requested By Reason for Consult Acute on chronic kidney disease Primary Care Physician Unknown History of Present Illness Mr. Stokes was admitted with history of shortness of breath and frequent falls. He was diagnosed with pneumonia, placed on antibiotics. He was given a dose of Lasix in the ER on the . After admission, he decompensated, was intubated, transferred to [facility]. He was found to be in atrial fibrillation. He has been hypotensive. Echo revealed EF of 20-25%. Patient's baseline creatinine appears to be around 1.7. It has increased to 2.7 currently. Has history of poorly controlled diabetes, COPD, CHF. His Troponin is elevated. Past Family Social History Allergies: Coded Allergies: Bupropion (Verified Allergy, Unknown, 02/24/17) Hydrocodone (Verified Allergy, Unknown, 02/24/17) Terazosin (Verified Allergy, Unknown, 02/24/17) Uncoded Allergies: ZYBAN (Allergy, Severe, 10/22/15) Past Medical History Coronary artery disease Chronic systolic heart failure Hypertension COPD Obstructive sleep apnea Diabetes Peripheral neuropathy Osteoporosis Hyperlipidemia Allergic rhinitis Obesity Lymphedema Past Surgical History Right knee surgery Left wrist surgery Hemorrhoidectomy Fistula repair Tonsillectomy Reported Medications Reported Meds & Active Scripts Active Reported Atorvastatin (Atorvastatin Calcium) 80 Mg Tab 80 Mg PO HS Aspirin EC (Aspirin) 81 Mg Tabdr 81 Mg PO HS Toprol XL (Metoprolol Succinate) 200 Mg Tab 200 Mg PO DAILY Lisinopril 40 Mg Tab 40 Mg PO DAILY Hydrochlorothiazide 12.5 Mg Tab 12.5 Mg PO DAILY Cetirizine (Cetirizine HCl) 5 Mg Tab 5 Mg PO DAILY Spiriva Handihaler (Tiotropium Inh) 18 Mcg Cap 18 Mcg INH HS 1 capsule = 18 mcg Ventolin Hfa 18 GM Inh (Albuterol Sulfate) 90 Mcg/Act Aer 2 Puff INH QID PRN Prevident 5000 Enamel Pro 1.1-5 % (Sodium Fluoride-Potassium Nitr) 1 Pst Pst 1 Applic DENTAL HS Lantus Inj (Insulin Glargine) 1,000 Unit/10 Ml Vial 35 Units SQ BID Risedronate DR (Risedronate) 35 Mg Tab 35 Mg PO Q7D ON SUNDAYS Oyster Calcium/Vitamin D (Calcium Carbonate-Vitamin D) 250-125 Mg-Unit Tab 1 Tab PO DAILY Doxazosin (Doxazosin Mesylate) 8 Mg Tab 8 Mg PO HS Symbicort Inh (Budesonide/Formoterol Fumarate) 160-4.5 Mcg/Act Aero 2 Puff INH BID Novolog Inj (Insulin Aspart) 1,000 Unit/10 Ml Vial 15 Units SQ TID Albuterol Neb (Albuterol Sulfate) 2.5 Mg/3 Ml Neb 2.5 Mg NEB QID NEB PRN Gabapentin 600 Mg Tab 600 Mg PO TID Lac-Hydrin Five (Lactic Acid (Ammonium Lactate)) 5 % Lot 1 Applic TOPICAL BID Triderm Topical (Triamcinolone Topical) 0.1 % Cream 1 Applic TOPICAL BID Flonase Nasal [place] (Fluticasone Nasal [place]) 50 Mcg/Act [place] 2 Spr EACH NARE DAILY Active Ordered Medications Current Medications Medications (Trade) Dose Ordered Sig/Steve Route Start Time Stop Time Status Last Admin (NS Flush) 2 ml UNSCH PRN IV FLUSH 02/24/17 22:00 (NS Flush) 2 ml BID IV FLUSH 02/25/17 09:00 02/26/17 09:30 Naloxone HCl 0.4 mg 0.4 mg UNSCH PRN IV 02/24/17 22:00 (Zithromax Inj/ NS 250 ml Inj) 250 ml @ 250 mls/hr Q24H IV 02/25/17 09:00 02/26/17 09:28 (SoluMEDROL INJ) 60 mg Q6HR IV PUSH 02/25/17 12:15 02/26/17 12:07 (Mucinex Er) 600 mg BID PO 02/25/17 13:00 Hold 02/25/17 20:51 (Tessalon) 200 mg Q8H PRN PO 02/25/17 13:00 Hold (Lasix Inj) 40 mg BID@09,18 IV PUSH 02/25/17 18:00 Hold 02/25/17 17:44 (Ecotrin Ec) 81 mg HS PO 02/25/17 21:00 02/25/17 21:03 (Lipitor) 80 mg HS PO 02/25/17 21:00 02/25/17 21:03 (Symbicort 160-4.5 Inh) 2 puff BID INH 02/25/17 21:00 02/25/17 20:51 (Toprol Xl) 200 mg DAILY PO 02/26/17 09:00 Hold Chlorhexidine Gluconate 15 ml 15 ml BID@08,20 MT 02/26/17 08:00 02/26/17 09:51 (NS 1000 ml Inj) 1,000 ml @ 84 mls/hr [id number] IV 02/26/17 01:18 Hold 02/26/17 01:18 (Tylenol) 650 mg Q6H PRN PO 02/26/17 01:30 (fentaNYL INJ) 50 mcg Q1H PRN IV PUSH 02/26/17 01:30 02/26/17 03:57 (Protonix Inj) 40 mg DAILY IV 02/26/17 09:00 02/26/17 09:26 (Zofran Inj) 4 mg Q6H PRN IV 02/26/17 01:30 (Colace) 100 mg BID PO 02/26/17 09:00 02/26/17 09:30 Miscellaneous Information 1 Q361D XX 02/26/17 01:30 02/26/17 01:30 (Chlorhexidine 2% Cloth) 3 pack Taper DAILY@04 TOP 02/26/17 04:00 02/22/18 03:59 02/26/17 03:56 Chlorhexidine Gluconate 3 pack 3 pack UNSCH PRN TOP 02/26/17 01:30 Propofol 100 ml @ 0 mls/hr TITRATE IV 02/26/17 01:30 Hold Fentanyl Citrate 250 ml @ 0 mls/hr TITRATE IV 02/26/17 03:00 02/26/17 03:56 (Versed Inj) 100 ml @ 0 mls/hr TITRATE IV 02/26/17 03:00 02/26/17 03:56 (Heparin Inj) 5,000 units UNSCH PRN IV 02/26/17 09:00 Heparin Sodium (Porcine) 2500 units 2,500 units UNSCH PRN IV 02/26/17 09:00 (Heparin-D5W Inj) 250 ml @ 0 mls/hr TITRATE IV 02/26/17 03:00 02/26/17 04:05 Midazolam HCl 2 mg 2 mg Q15M PRN IV PUSH 02/26/17 03:15 (Levophed-Dextrose Drip) 250 ml @ 0 mls/hr TITRATE IV 02/26/17 08:30 02/26/17 14:43 Terbutaline Sulfate 1 mg 1 mg UNSCH PRN SQ 02/26/17 08:30 Piperacillin Sod/ Tazobactam Sod 50 ml @ 200 mls/hr Q6H IV 02/26/17 10:00 02/26/17 09:50 (NovoLIN R (IV INFUSION)/NS Inj) 100 ml @ 0 mls/hr TITRATE IV 02/26/17 14:30 02/26/17 14:42 Dextrose 25 ml 25 ml UNSCH PRN IV PUSH 02/26/17 15:00 (Pitressin Inj/ D5W 100 ml Inj) 100 ml @ 0 mls/hr Q0M IV 02/26/17 15:00 Family History Father with cardiac arrhythmias. Social History Former smoker, quit in 1999. No ETOH. History obtained from the chart. Physical Exam Vital Signs Vital Signs Date Time Temp Pulse Resp B/P Pulse Ox O2 Delivery O2 Flow Rate FiO2 02/26/17 12:03 100 45 02/26/17 08:54 99 55 02/26/17 06:00 98 02/26/17 04:45 85/53 02/26/17 04:33 100 65 02/26/17 04:00 104 02/26/17 04:00 65 02/26/17 04:00 98.5 104 12 81/45 100 02/26/17 03:39 65 02/26/17 03:15 106/55 02/26/17 02:22 138 28 138/78 87 02/26/17 02:21 140 32 119/68 85 02/26/17 02:00 98.4 153 16 94/58 100 02/26/17 01:35 100 100 02/26/17 01:25 99 100 02/26/17 00:50 96 100 02/26/17 00:30 96 6.00 02/25/17 23:56 97.6 129 22 109/58 93 02/25/17 19:29 97.6 108 20 112/57 97 02/25/17 19:24 95 Nasal Cannula 2.00 Physical Exam GENERAL: intubated, sedated, unresponsive. SKIN: Warm and dry. HEAD: Normocephalic. EYES: No scleral icterus. No injection or drainage. NECK: Supple, trachea midline. No JVD or lymphadenopathy. CARDIOVASCULAR: Regular rate and rhythm without murmurs, gallops, or rubs. RESPIRATORY: Breath sounds equal bilaterally. No accessory muscle use. GASTROINTESTINAL: Abdomen soft, non-tender, nondistended. MUSCULOSKELETAL: No cyanosis, 1 + edema. BACK: Nontender without obvious deformity.. Laboratory Laboratory Tests Test 02/26/17 02/26/17 02/26/17 02/26/17 02:15 02:40 02:42 03:00 Urine Color YELLOW Urine Turbidity HAZY Urine pH 5.0 Urine Specific [place] 1.012 Urine Protein NEG Urine Glucose (UA) 1000 Urine Ketones NEG Urine Occult Blood NEG Urine Nitrite NEG Urine Bilirubin NEG Urine Urobilinogen LESS THAN 2.0 Urine Leukocyte Esterase NEG Urine RBC 1 Urine WBC 1 Urine Squamous Epithelial <1 Cells Urine Amorphous Sediment RARE Urine Bacteria RARE Urine Hyaline Casts 1 Microscopic Urinalysis Comment CATH-CULTURE IND White Blood Count 11.1 Red Blood Count 3.53 Hemoglobin 10.7 Hematocrit 32.9 Mean Corpuscular Volume 93.3 Mean Corpuscular Hemoglobin 30.4 Mean Corpuscular Hemoglobin 32.6 Concent Red Cell Distribution Width 14.6 Platelet Count 213 Mean Platelet Volume 8.9 Neutrophils (%) (Auto) 93.9 Lymphocytes (%) (Auto) 2.3 Monocytes (%) (Auto) 2.8 Eosinophils (%) (Auto) 0.0 Basophils (%) (Auto) 1.0 Neutrophils # (Auto) 10.5 Lymphocytes # (Auto) 0.3 Monocytes # (Auto) 0.3 Eosinophils # (Auto) 0.0 Basophils # (Auto) 0.1 CBC Comment DIFF FINAL Differential Comment Prothrombin Time 11.5 Prothromb Time International 1.0 Ratio Activated Partial 33.7 Thromboplast Time Sodium Level 130 Potassium Level 5.6 Chloride Level 96 Carbon Dioxide Level 25.3 Anion Gap 9 Blood Urea Nitrogen 51 Creatinine 2.72 Estimat Glomerular Filtration 23 Rate Random Glucose 531 Lactic Acid Level 2.9 Calcium Level 8.5 Phosphorus Level 5.5 Magnesium Level 2.1 Total Bilirubin 0.7 Aspartate Amino Transf 63 (AST/SGOT) Alanine Aminotransferase 28 (ALT/SGPT) Alkaline Phosphatase 103 Total Creatine Kinase 448 Creatine Kinase MB 27.1 Creatine Kinase MB % 6.0 Troponin I 14.50 B-Type Natriuretic Peptide 1421 Total Protein 6.9 Albumin 3.2 Triglycerides Level 110 Cholesterol Level 139 LDL Cholesterol 49 HDL Cholesterol 67.8 Cholesterol/HDL Ratio 2.05 Blood Gas Puncture Site RT RADIAL Blood Gas Patient Temperature 98.6 Blood Gas HCO3 22 Blood Gas Base Excess -4.9 Blood Gas Oxygen Saturation 97 Arterial Blood pH 7.17 Arterial Blood Partial 64 Pressure CO2 Arterial Blood Partial 252 Pressure O2 Arterial Blood Oxygen Content 15.5 Arterial Blood 1.3 Carboxyhemoglobin Arterial Blood Methemoglobin 1.2 Blood Gas Hemoglobin 11.0 Oxygen Delivery Device VENTILATOR Blood Gas Ventilator Setting AC/14/550/PEEP5 Blood Gas Inspired Oxygen 100 Nasal Screen MRSA (PCR) NEGATIVE Test 02/26/17 02/26/17 02/26/17 02/26/17 03:50 07:52 08:00 10:45 Blood Gas Puncture Site RT RADIAL CENTRAL LINE Blood Gas Patient Temperature 98.6 98.6 Blood Gas HCO3 23 Blood Gas Base Excess -3.7 Blood Gas Oxygen Saturation 96 Arterial Blood pH 7.23 Arterial Blood Partial 57 Pressure CO2 Arterial Blood Partial 144 Pressure O2 Arterial Blood Oxygen Content 13.8 Arterial Blood 1.5 Carboxyhemoglobin Arterial Blood Methemoglobin 1.1 Blood Gas Hemoglobin 10.0 Oxygen Delivery Device VENTILATOR VENTILATOR Blood Gas Ventilator Setting AC/12/600/PEEP 8 Blood Gas Inspired Oxygen 65 65 Venous Blood pH 7.23 Venous Blood Partial Pressure 58 CO2 Venous Blood Partial Pressure 43 O2 Venous Blood HCO3 24 Venous Blood Oxygen Saturation 70 Venous Blood Oxygen Content 9.3 Venous Blood Base Excess -3.0 Total Creatine Kinase 341 Creatine Kinase MB 25.1 Creatine Kinase MB % 7.4 Troponin I 11.40 Lactic Acid Level 3.0 Test 02/26/17 02/26/17 02/26/17 11:24 13:58 14:15 Activated Partial 117.8 44.5 Thromboplast Time Lactic Acid Level 2.4 Total Creatine Kinase 415 Creatine Kinase MB 31.4 Creatine Kinase MB % 7.6 Troponin I 27.60 Date/Time Procedure Status Source Growth 02/26/17 11:24 Aerobic Blood Culture Received Blood Peripheral Pending 02/26/17 11:24 Anaerobic Blood Culture Received Blood Peripheral Pending 02/26/17 03:20 Gram Stain - Final Resulted Sputum Endotracheal 02/26/17 03:20 Sputum Culture Resulted Sputum Endotracheal Pending 02/26/17 02:15 Urine Culture Received Urine Catheterized Urine Pending 02/25/17 16:45 Influenza Types A,B Antigen (CHIOMA) - Final Complete Nasal Washing NEGATIVE FOR FLU A AND B ANTIGEN.... 02/25/17 15:24 Legionella Antigen - Final Complete Urine Clean Catch PRESUMPTIVE NEGATIVE FOR LEGIONELLA P... 02/25/17 15:24 Streptococcus pneumoniae Antigen (M - Final Complete Urine Clean Catch PRESUMPTIVE NEGATIVE FOR STREPTOCOCCU... 02/24/17 18:40 Aerobic Blood Culture - Preliminary Resulted Blood Peripheral NO GROWTH IN 2 DAYS 02/24/17 18:40 Anaerobic Blood Culture - Preliminary Resulted Blood Peripheral NO GROWTH IN 2 DAYS Result Diagram: 02/26/17 0240 02/26/17 0240 Assessment and Plan Problem List: (1) Acute renal failure superimposed on chronic kidney disease Plan: likely due to hypotension, renal hypoperfusion, may have progressed to ATN. Needs cautious diuresis, but may not tolerate it due to hemodynamic instability. Avoid nephrotoxic agents. He is on vasopressors. Just had [place]-Luisa placed, PAP: 81/42. Likely he is in cardiogenic shock. Discussed with Dr. Pederson: he may place him on Dobutamine drip. IABP/Impella are possibilities. If BP improves, may attempt to diurese with diuretic drip. Maintain MAP above 65. UA was negative for proteinuria. Prognosis is guarded. (2) NSTEMI (non-ST elevated myocardial infarction) Plan: Cardiology following. Poor candidate for intervention. (3) CHF exacerbation Plan: worsened by acute [place]. Diuresis as tolerated. Diuretic drip may be better tolerated. (4) Pneumonia Plan: Currently on Rocephin and Zithromax. (5) Type 2 diabetes mellitus Plan: insulin coverage. Assessment and Plan Thanks for the consult. Prognosis is guarded to poor. Problem Qualifiers (1) CHF exacerbation: Qualified Code: I50.9 - Acute on chronic congestive heart failure, unspecified congestive heart failure type (2) Pneumonia: Qualified Code: J18.1 - Pneumonia of right lower lobe due to infectious organism Pablo Miner MD Feb 26, 2017 16:29
--- NOTE | 2017-02-26 17:11 | PD.PROCEDR ---
Central Line Procedure REASON FOR PROCEDURE Central venous access PROCEDURE PERFORMED Central line placement: RIJ Cordis CONSENT Informed consent for procedure was obtained and time out performed. The risks and benefits of the procedure were discussed to include but limited to bleeding , clot formation, infection, and even . ANESTHESIA Local injection of 1% Lidocaine DESCRIPTION OF THE PROCEDURE The patient was placed in supine, mild Trendelenburg position. The area was exposed and cleansed with ChloraPrep, times two. Large sterile drape was used to cover the patient, with the site exposed, under sterile conditions including cap, face mask, sterile gown, and sterile gloves. On single attempt, the introducer needle was inserted with negative pressure in syringe and venous flash was obtained. The guide wire was then advanced without any restriction and the needle was removed. The dilator was used without any complications. Using Seldinger technique the 8.5 F introducer catheter was advanced over the guide wire. The guide wire was removed. All ports were aspirated with dark venous blood return and flushed easily with sterile saline. All ports were capped. The central line was secured to the skin with two interrupted 2.0 silk sutures. The area was bandaged with sterile see-through central line bandage. RADIOLOGICAL DATA Ultrasound guidance was used to locate RIJ COMPLICATIONS: No apparent complications ESTIMATED BLOOD LOSS: Less than 1 cc. Tangela Pederson MD Feb 26, 2017 17:11
--- NOTE | 2017-02-26 17:18 | PD.PROCEDR ---
Procedure Note Procedure [place]-Luisa Catheter Placement Date: 02/26/17 Indication: Hemodynamic monitoring/Intravenous access A time-out was completed verifying correct patient, procedure, site, positioning , and special equipment if applicable. The patient was placed in a dependent position appropriate for central line placement based on the vein already cannulated with a 8.5F Cordis catheter. The patients right neck was already prepped and draped in sterile fashion. A triple lumen continuous cardiac output [place]-Luisa catheter was brought onto the field and each line flushed with sterile saline and the SVO2 sensor calibrated. The catheter was introduced into the Cordis catheter to a distance of 15-17 cm. The balloon was then inflated and the catheter was advanced through the right ventricle and into the pulmonary artery until PA tracing was obtained. (A wedge was not obtained at 55 cm). The balloon was then deflated and verification of return of a pulmonary artery pressure tracing made. During the floating procedure to position the catheter the position of the catheter tip was determined by continuous pressure monitoring via the distal port. The catheter was locked to the Cordis with the tip inserted to a distance of 55cm and a sterile dressing applied. Estimated Blood Loss: <1 ml The patient tolerated the procedure well and there were no immediate complications. Tangela Pederson MD Feb 26, 2017 17:18
[2017-02-26 17:56] LABS: BLOOD GAS VENOUS BASE EXCESS -1.4 mmol/L (-2-2); BLOOD GAS VENOUS HCO3 24 mmol/L (22-26); BLOOD GAS VENOUS O2 CONTENT 10.2 Vol % (9.0-17.0); BLOOD GAS VENOUS O2 HGB SAT 66 % (70-76); BLOOD GAS VENOUS PCO2 50 mmHg (44-48); BLOOD GAS VENOUS PO2 39 mmHg (35-40); BLOOD GAS VENOUS pH 7.31 (7.360-7.400); CRITICAL VALUE YES; OXYGEN DEVICE VENTILATOR; TEMP CORR TO 98.6
[2017-02-26 17:57] LABS: DRAW SITE SWAN GANZ LINE; FIO2 45 %; STAT YES; VENT SETTINGS AC/RR18/VT620/PEEP10
--- NOTE | 2017-02-26 18:36 | RADRPT ---
EXAM DATE/TIME: 02/26/2017 17:14 [facility] COMPARISON: CHEST SINGLE AP, February 26, 2017, 2:09. INDICATIONS : PA Catheter placement. MEDICAL HISTORY : None. SURGICAL HISTORY : None. ENCOUNTER: Subsequent ACUITY: 3 days PAIN SCORE: Non-responsive. LOCATION: Bilateral chest FINDINGS: Endotracheal tube is stable and satisfactory position. Nasogastric tube coils into the stomach. A rig ht subclavian central line is again noted. There is been interval placement of a jugular sheath and S wan-Luisa catheter. I cannot clearly tract the [place] catheter much beyond the level of the tricuspid va lve. There is persistent cardiomegaly, vascular congestion and diffuse pleuroparenchymal opacity like ly reflecting edema and effusions. CONCLUSION: [place] catheter tip is not clearly seen. Bg Isaac MD on February 26, 2017 at 18:32 Board Certified Radiologist. This report was verified electronically.
[2017-02-26] MEDS ORDERED: Vancomycin Consult Pharmacy 1 EA OTHER SCH (19:00)
[2017-02-26] MEDS: ASPIRIN EC 81 MG TABEC PO SCH (19:39)
[2017-02-26] MEDS: ATORVASTATIN 80 MG TAB PO SCH (19:43)
[2017-02-26] MEDS ORDERED: VANCOMYCIN INJ 1,750 MG in SODIUM CHLORID 0.9% 500 ML INJ 500 ML IV ONE (20:00)
[2017-02-27] VITALS (20 sets, daily range): BP systolic 105–138; BP diastolic 39–84; PULSE 73–135; RESP 18; TEMP 97.8–98.3; O2SAT 95–100
[2017-02-27 00:36] LABS: APTT (PATIENT) 45.5 SEC (24.3-30.1)
[2017-02-27] MEDS: VASOPRESSIN INJ 40 UNITS in DEXTROSE 5% IN WATER 100ML INJ 98 ML IV SCH ×4 (01:32→22:03)
[2017-02-27] MEDS: PIPERACIL-TAZO 3.375 GM PREMIX 50 ML IV SCH ×4 (02:07→21:28)
[2017-02-27] MEDS: RESP: ALBUTEROL 2.5 MG/IPRATROPIUM 0.5 MG NEB (SCH) INH ×7 (04:00→23:12)
[2017-02-27] MEDS: methylPREDNISolone SOD SUCC 125 MG/2 ML VIAL IV PUSH SCH ×3 (04:21→21:28)
[2017-02-27 04:43] LABS: AUTOMATED NEUTROPHIL # 7.8 TH/MM3 (1.8-7.7); BASOPHIL % 0.1 % (0.0-2.0); HEMATOCRIT 28.1 % (39.0-51.0); HEMO FLAGS DIFF FINAL; LYMPHOCYTE # 0.2 TH/MM3 (1.0-4.8); MEAN CELL VOLUME 89.5 FL (80.0-100.0); MEAN CORPUSCULAR HEMOGLOBIN 29.7 PG (27.0-34.0); MEAN CORPUSCULAR HGB CONC 33.1 % (32.0-36.0); MONO % 3.6 % (0.0-8.0); NEUT % 93.3 % (16.0-70.0); PLATELET COUNT 184 TH/MM3 (150-450); RED BLOOD COUNT 3.14 MIL/MM3 (4.50-5.90); RED CELL DISTRIBUTION WIDTH 14.2 % (11.6-17.2); WHITE BLOOD COUNT 8.4 TH/MM3 (4.0-11.0)
[2017-02-27 04:49] LABS: ALKALINE PHOSPHATASE 75 U/L (45-117); ALT (GPT) 27 U/L (12-78); ANION GAP 11 MEQ/L (5-15); APTT (PATIENT) 45.3 SEC (24.3-30.1); AST (GOT) 78 U/L (15-37); BICARBONATE 24.1 MEQ/L (21.0-32.0); BLOOD UREA NITROGEN 57 MG/DL (7-18); CHLORIDE 102 MEQ/L (98-107); GLOMERULAR FILTRATION RATE 23 ML/MIN (>89); MAGNESIUM 2.4 MG/DL (1.5-2.5); POTASSIUM 4.2 MEQ/L (3.5-5.1); SODIUM (NA) 137 MEQ/L (136-145); TOTAL BILIRUBIN ADULT 0.5 MG/DL (0.2-1.0)
--- NOTE | 2017-02-27 07:06 | RADRPT ---
EXAM DATE/TIME: 02/27/2017 06:34 [facility] COMPARISON: CHEST SINGLE AP, February 26, 2017, 17:14. INDICATIONS : PA catheter tip. MEDICAL HISTORY : unobtainable SURGICAL HISTORY : unobtainable ENCOUNTER: Subsequent ACUITY: 3 days PAIN SCORE: Non-responsive. LOCATION: Bilateral chest FINDINGS: The support devices remain in place. There is no pneumothorax. There continues to be bilateral inters titial pulmonary infiltrates without significant change compared to the prior study. The heart size i s enlarged but stable. The bony structures are stable. CONCLUSION: No significant interval change. Jimi Orlando MD on February 27, 2017 at 7:03 Board Certified Radiologist. This report was verified electronically.
--- NOTE | 2017-02-27 07:18 | EKG ---
Date Performed: 02/25/2017 Time Performed: 11:55:43 PTAGE: 76 years EKG: LIKELY ATRIAL FLUTTER WITH RAPID VENTRICULAR RESPONSE POSSIBLE INFERIOR MYOCARDIAL INFARCTI ON ABNORMAL ECG Compared to PREVIOUS TRACING , atrial flutter has replaced Sinus rhythm . PREVIOUS TRACIN02/24/2017 18.20 DOCTOR: Mohit Romero Interpretating Date/Time 02/27/2017 07:17:23
--- NOTE | 2017-02-27 07:22 | EKG ---
Date Performed: 02/26/2017 Time Performed: 02:18:36 PTAGE: 76 years EKG: Sinus tachycardia vs atrial tachycardia vs atrial flutter IV conduction defect Inferior inf arct - age undetermined Ant/septal and lateral ST-T changes suggest myocardial injury/ischemia Abnorm al ECG Compared to PREVIOUS TRACING , regular tachycardia has slowed somewhat. Previously seen flutter waves are no longer present. Anterolateral ST depression is more prominent. Consider ischemia. Would recom mend a repeat EKG at a slower heart rate. PREVIOUS TRACIN02/25/2017 11.55 DOCTOR: Mohit Romero Interpretating Date/Time 02/27/2017 07:20:41
--- NOTE | 2017-02-27 08:24 | PD.CARD.PN ---
Subjective Subjective Remarks intubated sedated [place] in place reduced pressors Objective Medications Active Medications Dextrose 25 ml 25 ml UNSCH PRN IV PUSH; Start 02/26/17 at 15:00 Docusate Sodium (Colace) 100 mg BID PO Last administered on 02/26/17 19:42; Admin Dose 100 MG; Start 02/26/17 at 09:00 Heparin Sodium (Porcine) (Heparin Inj) 5,000 units UNSCH PRN IV; Start at 09:00 Heparin Sodium (Porcine) 2500 units 2,500 units UNSCH PRN IV; Start 02/26/17 at 09:00 Insulin Human Regular 100 units/ Sodium Chloride 100 ml @ 0 mls/hr TITRATE IV Last administered on 02/26/17 10:02; Admin Dose 0 MLS/HR; Start 02/26/17 at 10: 00; Stop 02/26/17 at 14:21; Status DC Insulin Human Regular/Sodium Chloride (NovoLIN R (IV INFUSION)/NS Inj) 100 ml @ 0 mls/hr TITRATE IV Last administered on 02/26/17 14:42; Admin Dose 0 MLS/HR; Start 02/26/17 at 14:30 Metoprolol Succinate (Toprol Xl) 200 mg DAILY PO; Start 02/26/17 at 09:00; Status Hold Miscellaneous Information 1 1 ONCE ONCE OTHER; Start 02/26/17 at 15:00; Stop at 15:01; Status DC Norepinephrine Bitartrate (Levophed-Dextrose Drip) 250 ml @ 0 mls/hr TITRATE IV Last administered on 02/26/17 20:43; Admin Dose 0 MLS/HR; Start 02/26/17 at 08: 30 Pantoprazole Sodium (Protonix Inj) 40 mg DAILY IV Last administered on 09:26; Admin Dose 40 MG; Start 02/26/17 at 09:00 Pharmacy Profile Note (Vancomycin Consult Pharmacy) ml @ 0 mls/hr UNSCH OTHER; Start 02/26/17 at 19:00 Piperacillin Sod/ Tazobactam Sod (Zosyn 3.375 Gm Premix) 50 ml @ 200 mls/hr Q6H IV Last administered on 02/27/17 02:07; Admin Dose 200 MLS/HR; Start at 10:00 Rocuronium Sulphur 50 mg 50 mg STK-MED ONCE .ROUTE; Start 02/26/17 at 16:00; Stop 02/26/17 at 16:01; Status DC Sodium Bicarbonate 50 meq 50 meq ONCE ONCE IV PUSH Last administered on 09:24; Admin Dose 50 MEQ; Start 02/26/17 at 08:30; Stop 02/26/17 at 09:12; Status DC Sodium Chloride 1,000 ml @ 999 mls/hr BOLUS ONCE IV Last administered on 09:52; Admin Dose 999 MLS/HR; Start 02/26/17 at 08:30; Stop 02/26/17 at 09: 30; Status DC Terbutaline Sulfate (Brethine Inj) 1 mg UNSCH PRN SQ; Start 02/26/17 at 08:30 Vancomycin HCl 1750 mg/Sodium Chloride 517.5 ml @ 258.75 mls/ hr ONCE ONCE IV Last administered on 02/26/17 19:37; Admin Dose 258.75 MLS/HR; Start 02/26/17 at 20:00; Stop 02/26/17 at 21:59; Status DC Vasopressin/ Dextrose (Pitressin Inj/ D5W 100 ml Inj) 100 ml @ 0 mls/hr Q0M IV Last administered on 02/27/17 01:32; Admin Dose 0 MLS/HR; Start 02/26/17 at 15: 00 Vital Signs / I&O Vital Signs Date Time Temp Pulse Resp B/P Pulse Ox O2 Delivery O2 Flow Rate FiO2 02/27/17 06:00 75 127/47 127/47 02/27/17 06:00 75 02/27/17 04:00 73 02/27/17 04:00 98.1 73 18 129/52 95 129/51 02/27/17 04:00 45 02/27/17 04:00 73 131/51 131/51 02/27/17 04:00 98 45 02/27/17 03:00 75 02/27/17 02:00 75 02/27/17 00:00 73 02/27/17 00:00 45 02/27/17 00:00 97.8 73 18 132/53 95 129/52 02/27/17 00:00 98 45 02/26/17 23:39 75 125/51 125/50 02/26/17 22:31 77 133/54 133/54 02/26/17 22:00 75 02/26/17 21:10 99 45 02/26/17 20:00 75 144/56 145/55 02/26/17 20:00 45 02/26/17 20:00 97.8 75 18 133/53 95 138/47 02/26/17 20:00 75 02/26/17 18:00 75 02/26/17 17:30 97 45 02/26/17 16:00 45 02/26/17 16:00 97.9 85 18 132/60 95 138/47 02/26/17 16:00 76 02/26/17 14:00 82 02/26/17 12:03 100 45 02/26/17 12:00 50 02/26/17 12:00 84 02/26/17 12:00 98.3 84 18 97/55 97 108/42 02/26/17 10:00 87 02/26/17 08:54 99 55 I/O 02/26/17 02/26/17 02/26/17 02/27/17 02/27/17 02/27/17 07:00 15:00 23:00 07:00 15:00 23:00 Intake Total 532 ml 2967 ml 1175 ml 475 ml Output Total 10 ml 100 ml 125 ml 275 ml Balance 522 ml 2867 ml 1050 ml 200 ml Intake IV Total 532 ml 2867 ml 1175 ml 475 ml Other 100 ml Output Urine Total 10 ml 100 ml 125 ml 275 ml # Bowel Movements 0 Physical Exam CARDIOVASCULAR: irregular rhythm RESPIRATORY: Rhonci GASTROINTESTINAL: distended. Laboratory Laboratory Tests Test 02/26/17 02/26/17 02/26/17 02/26/17 10:45 11:24 13:58 14:15 Lactic Acid Level 3.0 mmol/L 2.4 mmol/L Activated Partial 117.8 SEC 44.5 SEC Thromboplast Time Total Creatine Kinase 415 U/L Creatine Kinase MB 31.4 NG/ML Creatine Kinase MB % 7.6 % Troponin I 27.60 NG/ML Test 02/26/17 02/26/17 02/27/17 17:45 23:55 04:05 Blood Gas Puncture Site SWAN SHAWANDA LINE Blood Gas Patient Temperature 98.6 Venous Blood pH 7.31 Venous Blood Partial Pressure 50 mmHg CO2 Venous Blood Partial Pressure 39 mmHg O2 Venous Blood HCO3 24 mmol/L Venous Blood Oxygen Saturation 66 % Venous Blood Oxygen Content 10.2 Vol % Venous Blood Base Excess -1.4 mmol/L Oxygen Delivery Device VENTILATOR Blood Gas Ventilator Setting AC/RR18/VT620/PEEP10 Blood Gas Inspired Oxygen 45 % Activated Partial 45.5 SEC 45.3 SEC Thromboplast Time White Blood Count 8.4 TH/MM3 Red Blood Count 3.14 MIL/MM3 Hemoglobin 9.3 GM/DL Hematocrit 28.1 % Mean Corpuscular Volume 89.5 FL Mean Corpuscular Hemoglobin 29.7 PG Mean Corpuscular Hemoglobin 33.1 % Concent Red Cell Distribution Width 14.2 % Platelet Count 184 TH/MM3 Mean Platelet Volume 8.8 FL Neutrophils (%) (Auto) 93.3 % Lymphocytes (%) (Auto) 3.0 % Monocytes (%) (Auto) 3.6 % Eosinophils (%) (Auto) 0.0 % Basophils (%) (Auto) 0.1 % Neutrophils # (Auto) 7.8 TH/MM3 Lymphocytes # (Auto) 0.2 TH/MM3 Monocytes # (Auto) 0.3 TH/MM3 Eosinophils # (Auto) 0.0 TH/MM3 Basophils # (Auto) 0.0 TH/MM3 CBC Comment DIFF FINAL Differential Comment Sodium Level 137 MEQ/L Potassium Level 4.2 MEQ/L Chloride Level 102 MEQ/L Carbon Dioxide Level 24.1 MEQ/L Anion Gap 11 MEQ/L Blood Urea Nitrogen 57 MG/DL Creatinine 2.73 MG/DL Estimat Glomerular Filtration 23 ML/MIN Rate Random Glucose 135 MG/DL Lactic Acid Level 0.9 mmol/L Calcium Level 8.1 MG/DL Phosphorus Level 3.9 MG/DL Magnesium Level 2.4 MG/DL Total Bilirubin 0.5 MG/DL Aspartate Amino Transf 78 U/L (AST/SGOT) Alanine Aminotransferase 27 U/L (ALT/SGPT) Alkaline Phosphatase 75 U/L Total Protein 5.8 GM/DL Albumin 2.6 GM/DL Imaging Last Impressions Chest X-Ray 02/27/17 0000 Signed Impressions: Service Date/Time: Monday, February 27, 2017 06:34 - CONCLUSION: No significant interval change. Jimi Orlando MD Head CT 02/24/17 0000 Signed Impressions: Service Date/Time: Friday, February 24, 2017 18:59 - CONCLUSION: 1. No acute hemorrhage or mass effect. 2. Acute sinusitis in the left maxillary sinus. Raul Craig MD Cervical Spine MRI 02/24/17 0000 Signed Impressions: Service Date/Time: Friday, February 24, 2017 22:46 - CONCLUSION: 1. Small central protrusion at C4-5 without canal stenosis. 2. Small central protrusion at C3-4 with minimal extruded component. 3. Mild broad-based disc bulges at C5- 6 and C6-7 levels without canal stenosis. Neto Duenas MD Cervical Spine CT 02/24/17 0000 Signed Impressions: Service Date/Time: Friday, February 24, 2017 19:02 - CONCLUSION: 1. Moderate narrowing of left neural foramina at the C3-4 level secondary to hypertrophic change involving the facet joint. 2. Mild degenerative change at the C5-6 and C6-7 levels. 3. Mild disc osteophyte complex at C5-6 with mild narrowing of the neural foramina. Raul Craig MD Brain MRI 02/24/17 0000 Signed Impressions: Service Date/Time: Friday, February 24, 2017 22:46 - CONCLUSION: 1. No acute intracranial abnormality. 2. Left maxillary sinus disease. 3. No acute infarction. Neto Duenas MD Assessment and Plan Problem List: (1) NSTEMI (non-ST elevated myocardial infarction) Assessment and Plan Acute respiratory distress appears to be multifactorial. PNA, COPD, CHF CHF, acute systolic Cardiomyopathy - EF 25%. Severe PHTN NSTEMI ARF Sepsis At least moderate aortic stenosis. unable to tolerate BB, ERLIN due to hypotension. wean pressors as tolerated +i/o 4 L. start diuresis. follow Cr. severe PHTN. unable to obtain wedge pressure to calculate transpulmonary gradient. suspect primarily due to increased left sided pressure although intrinsic pulmonary disease may also have a component when off pressors, and after diuresis, we could consider Flolan challenge if transpulmonary gradient is > 12. NSTEMI - eventually will need LHC, but not stable now. hemodynamics are more suggestive of septic shock than cardiac based on CI and SVR. Jong Butts MD Feb 27, 2017 08:24
[2017-02-27] MEDS ORDERED: LORazepam 2 MG/ML VIAL ONE (08:33)
[2017-02-27] MEDS ORDERED: BUMETANIDE INJ 1 MG/4 ML VIAL IV PUSH ONE (08:45)
[2017-02-27] MEDS: SODIUM CHLORIDE 0.9% FLUSH 10 ML FLUSH IV FLUSH SCH ×2 (09:00→20:06)
[2017-02-27] MEDS: BUDESONIDE-FORMOTEROL 160/4.5 MCG INHALER INH SCH ×2 (09:00→20:05)
--- NOTE | 2017-02-27 09:04 | HHI.CCPN ---
Subjective Remarks/Hospital Course Per Dr. Pleitez consult note on 02/26/17: Responded to [facility] overhead. Upon arrival to F pod discovered that patient was awake and normotensive, with sinus tachycardia in the 150s in severe respiratory distress. He had not lost a pulse but [facility] had been called to facilitate rapid evaluation and stabilization. 76-year-old male with past history of obesity, COPD, obstructive sleep apnea on CPAP, CHF, peripheral neuropathy, hypertension, diabetes, hyperlipidemia, obesity who receives medical care at the [facility]. He presented to [facility] emergency department 02/25/17 with falls and difficulty with balance. He also reported that he was having shortness of breath and cough for several days. Was not febrile in hospital. On the day of admission he had some chest pain across his chest. Troponins negative. He was treated for pneumonia with Rocephin and azithromycin. He was placed on steroids Solu-Medrol 60 mg IV every 6 hours. Received Lasix at about 6 PM on due to concern for volume overload. Echo had poor images but systolic function appeared reduced. Tonight he developed acutely worsening shortness of breath and Dr. Galicia presented to the emergency Department to evaluate him where he was found to be tachypneic and wheezing. He was given a neb and preparations were being made to place him on BiPAP. He was becoming less responsive and was looking upward when I arrived and respiratory was placing on Bipap. He was in extremis and it was felt he would need emergent intubation prior to transfer to ICU. He denied chest pain. He was preoxygenated on Bipap, did seem to become more alert and nodded that he agreed with proceeding with intubation. He was intubated in F pod and then [place] [facility] arrival [place] [facility] he was in atrial fibrillation in the 130s. SBP was 90/50 then 64/40. Central line was placed and he converted to sinus tachycadia in 101-130s. Subsequently he was normotensive with MAP 71. He was also sedated with propofol during the hypotension, improved after transition to fentanyl drip. SUBJ 02/27: PA catheter placed yesterday. PA catheter readings are more consistent distributive/septic shock with high cardiac output with low SVR. CO 10-11. CI 2.8 SVRI [id number]. D/W Dr Butts. Will hold off Flolan challenge at this time for high PA pressure- mean 59-60. After weaning pressors, PA mean pressure is about 40. Patient's hemodynamics have improved, vasopressin is off now, Levophed is at 4 mics per minute. Give Bumex 2 mg 1 on Bumex drip at 2 mg per hour per Dr. Miner Objective Vital Signs Date Time Temp Pulse Resp B/P Pulse Ox O2 Delivery O2 Flow Rate FiO2 02/27/17 08:28 97 40 02/27/17 06:00 75 127/47 127/47 02/27/17 04:00 98.1 18 02/26/17 00:30 6.00 02/25/17 19:24 Nasal Cannula Intake and Output 02/26/17 02/26/17 02/27/17 08:00 16:00 00:00 Intake Total 532 ml 2967 ml 1175 ml Output Total 10 ml 100 ml 125 ml Balance 522 ml 2867 ml 1050 ml Result Diagram: 02/27/17 0405 02/27/17 0405 Other Results Microbiology Date/Time Procedure Status Source Growth 02/25/17 14:00 Gram Stain - Final Complete Sputum Expectorated Sputum 02/25/17 14:00 Sputum Culture - Final Complete Sputum Expectorated Sputum HEAVY GROWTH NORMAL RESPIRATORY JEN 02/25/17 15:24 Legionella Antigen - Final Complete Urine Clean Catch PRESUMPTIVE NEGATIVE FOR LEGIONELLA P... 02/25/17 15:24 Streptococcus pneumoniae Antigen (M - Final Complete Urine Clean Catch PRESUMPTIVE NEGATIVE FOR STREPTOCOCCU... 02/25/17 16:45 Influenza Types A,B Antigen (CHIOMA) - Final Complete Nasal Washing NEGATIVE FOR FLU A AND B ANTIGEN.... Laboratory Tests Test 02/26/17 17:45 Blood Gas Puncture Site SWAN SHAWANDA LINE Blood Gas Patient Temperature 98.6 Venous Blood pH 7.31 (7.360-7.400) Venous Blood Partial Pressure 50 mmHg (44-48) CO2 Venous Blood Partial Pressure 39 mmHg (35-40) O2 Venous Blood HCO3 24 mmol/L (22-26) Venous Blood Oxygen Saturation 66 % (70-76) Venous Blood Oxygen Content 10.2 Vol % (9.0-17.0) Venous Blood Base Excess -1.4 mmol/L (-2-2) Oxygen Delivery Device VENTILATOR Blood Gas Ventilator Setting AC/RR18/VT620/PEEP10 Blood Gas Inspired Oxygen 45 % Objective Remarks Drips Versed Fentanyl Levophed at 4 mics per minute Vasopressin turned off Bumex gtt ordered GENERAL: Critically ill on vasopressors, PAC, sedated with Versed and fentanyl SKIN: Dry, cool clammy peripherally HEAD: Atraumatic. Normocephalic. EYES: Pupils equal and round 2mm and reactive. No scleral icterus. No injection or drainage. ENT: Orotracheally intubated NECK: Trachea midline. Right IJ introducer in place, with PA catheter in place. CARDIOVASCULAR: Regular, sinus rhythm on monitor. No murmurs rubs or gallops appreciated. CO 11, CI 2.8, SVRI 1300. Unable to wedge RESPIRATORY: Intubated. Air entry equal bilaterally diminished at the bases. Scattered bilateral wheezing and crackles GASTROINTESTINAL: Abdomen obese, protuberant, small umbilical reducible hernia. Bowel sounds present and active. No tenderness MUSCULOSKELETAL: Extremities without clubbing, cyanosis. There is 2+ pitting bilateral lower extremity edema up to knee. There are venous stasis changes. NEUROLOGICAL: Intubated sedated on lightening sedation follows commands with upper extremities. No obvious focal deficits Urinary Catheter: Yes Assessment to: Continue Vascular Central Line Catheter: Yes Assessment to: Continue A/P Assessment and Plan NEURO: Acute encephalopathy - secondary to hypercapnea and hypoxemia Versed and Fentanyl for analgosedation MRI brain 02/24 - no acute abnormality MRI C-spinesmall central protrusion at c3/C4 and C4-C5 without canal stenosis Check EEG for tremors today RESP: Acute hypoxemic and hypercapnic respiratory failure Acute COPD exacerbation Acute on chronic pulmonary artery hypertension Objective sleep apnea History of tobacco abuse Profound wheezing prior to and after intubation. Ventilator bundle. DuoNeb every 4 hours. Albuterol every 2 hours when necessary Solumedrol 60 mg IV every 6 hours-reduce to 40 q8 Airway edema, particularly large arytenoid edema noted on intubation with anterior airway. Intubated with Glidescope and 7.5 ETT. Broad-spectrum antibiotics as below It is unclear whether pulmonary hypertension is secondary to left heart failure , or is it secondary to obstructive sleep apnea and COPD Once adequately diagnosed May try Flolan challenge CV: Shock, distributive/septic Acute on chronic systolic heart failure NSTEMI Paroxysmal atrial fibrillation/flutter History of Hypertension Hyperlipidemia History of coronary artery disease Continue to wean Levophed to keep map above 65 off vasopressin PAC placed 02/26: Numbers are consistent with distributive shock (CI 2.8, SVRI 1300) It is unclear whether pulmonary hypertension is secondary to left heart failure , or is it secondary to obstructive sleep apnea and COPD Unable to wedge to calculate trans-pulmonic pressures Serial cardiac markers and EKG. cardiology Dr. butts Continue IV heparin for NSTEMI and A Fib Bumex 2 mg IV 1 and Bumex infusion at 2 mg per hour Continue aspirin Heparin drip due to paroxysmal A fib/NSTEMI Mixed venous sat 66% Troponin peaked at 27. Need LHC once more stable Continue atorvastatin 80 mg daily at bedtime Unable to use betablocker due to shock. Echo 02/26: - Left ventricle: cavity size was dilated. Systolic function was severely reduced 25% to 30%. Diffuse hypokinesis. -Aortic valve: at least moderate stenosis. Tricuspid valve: Mild-moderate regurgitation.PASP: 70mm Hg GI: Nothing by mouth. OGT tube to LIWS. Start tube feeding in 24 hours Colace for bowel regimen FEN/RENAL: Acute kidney injury/ATN Barrios. Monitor intake and output. Monitor electrolytes Replace electrolytes as indicated per ICU electrolyte replacement protocol. Bumex 2 mg IV 1 and Bumex infusion at 2 mg per hour ID: Acute community acquired pneumonia Septic shock Zosyn/azithromycin. Single dose of vancomycin F/u Sputum culture, blood culture, urine culture Microbiology: lood culture 2 setsno growth to date 02/25blood culturepending 02/25urine Legionella and pneumococcal antigen negative 02/25influenza screen negative HEME: Obtain CBC and coags Continue IV heparin ENDO: Poorly controlled diabetes mellitus Insulin drip algorithm #4 PROPH: Protonix 40 mg IV daily for stress ulcer prophylaxis. Heparin drip as per above ACCESS: Right subclavian central venous line placed 02/26 #1 Full code Critical care time 80 minutes exclusive of separately billable procedures. Tangela Pederson MD Feb 27, 2017 09:04
[2017-02-27] MEDS: PANTOPRAZOLE SODIUM 40 MG VIAL IV SCH (09:08)
[2017-02-27] MEDS: DOCUSATE SODIUM 100 MG CAP PO SCH ×2 (09:08→19:46)
[2017-02-27] MEDS: AZITHROMYCIN INJ 500 MG in SODIUM CHLOR 0.9% 250 ML INJ 250 ML IV SCH (09:08)
[2017-02-27] MEDS: CHLORHEXIDINE 0.12% (ORAL KIT) 15 ML CUP MT SCH ×2 (09:10→20:00)
--- NOTE | 2017-02-27 09:29 | RADRPT ---
EXAM DATE/TIME: 02/27/2017 08:47 This report includes an Addendum and supersedes previous reports for this exam. This report includes an Addendum and supersedes previous reports for this exam. [place] COMPARISON: No previous studies available for comparison. INDICATIONS : Reposition pulmonary catheter placement. MEDICAL HISTORY : None. SURGICAL HISTORY : None. ENCOUNTER: Subsequent ACUITY: 4 - 6 days PAIN SCORE: Non-responsive. LOCATION: Bilateral upper chest FINDINGS: The right jugular venous air is noted and the tip is obscured but believed to extended release to the right atrium. Right subclavian line tip overlies the SVC. Endotracheal tube and enteric tube are aga in noted. There are bilateral effusions and consolidation suspected. Cardiomegaly. CONCLUSION: Pulmonary catheter tip not well visualized though appears to extend to at least level of the right at rium. Evaristo Massey MD on February 27, 2017 at 9:26 Board Certified Radiologist. This report was verified electronically. ADDENDUM: Enteric tube is noted in satisfactory position. There is consolidation at the bases and effusions. Ca rdiomegaly is present. The tip of the Coyote-Luisa catheter is felt to extend to the level of the right atrium. It is partially obscured. Evaristo Massey MD on February 27, 2017 at 10:30 Board Certified Radiologist. This report was verified electronically. ADDENDUM: On further review the Coyote-Luisa catheter tip is visualized on image 3 of 3 extending to the level of the right pulmonary artery overlying the right hilum. Evaristo Massey MD on February 27, 2017 at 12:17 Board Certified Radiologist. This report was verified electronically.
--- NOTE | 2017-02-27 09:38 | HHI.NPPN ---
Subjective General Problems: Edema, Hypotension Renal Failure: Acute Interval History He remains intubated/sedated. On multiple drips. He was started on Bumex. Demonstrating fluid overload. (Katina Park) Review of Systems General General Remarks unable to evaluate (Katina Park) Objective Data Data 02/26/17 02/27/17 19:00 07:00 Intake Total 2967 ml 1650 ml Output Total 100 ml 400 ml Balance 2867 ml 1250 ml Intake IV Total 2867 ml 1650 ml Other 100 ml Output Urine Total 100 ml 400 ml Vital Signs Date Time Temp Pulse Resp B/P Pulse Ox O2 Delivery O2 Flow Rate FiO2 02/27/17 08:28 97 40 02/27/17 06:00 75 127/47 127/47 02/27/17 06:00 75 02/27/17 04:00 73 02/27/17 04:00 98.1 73 18 129/52 95 129/51 02/27/17 04:00 45 02/27/17 04:00 73 131/51 131/51 02/27/17 04:00 98 45 02/27/17 03:00 75 02/27/17 02:00 75 02/27/17 00:00 73 02/27/17 00:00 45 02/27/17 00:00 97.8 73 18 132/53 95 129/52 02/27/17 00:00 98 45 02/26/17 23:39 75 125/51 125/50 02/26/17 22:31 77 133/54 133/54 02/26/17 22:00 75 02/26/17 21:10 99 45 02/26/17 20:00 75 144/56 145/55 02/26/17 20:00 45 02/26/17 20:00 97.8 75 18 133/53 95 138/47 02/26/17 20:00 75 02/26/17 18:00 75 02/26/17 17:30 97 45 02/26/17 16:00 45 02/26/17 16:00 97.9 85 18 132/60 95 138/47 02/26/17 16:00 76 02/26/17 14:00 82 02/26/17 12:03 100 45 02/26/17 12:00 50 02/26/17 12:00 84 02/26/17 12:00 98.3 84 18 97/55 97 108/42 02/26/17 10:00 87 (Katina Park) -: 02/27/17 0405 02/27/17 0405 Microbiology 02/26/17 Aerobic Blood Culture, Received Pending 02/26/17 Anaerobic Blood Culture, Received Pending 02/26/17 Aerobic Blood Culture, Received Pending 02/26/17 Anaerobic Blood Culture, Received Pending Imaging Last Impressions Chest X-Ray 02/27/17 0000 Signed Impressions: Service Date/Time: Monday, February 27, 2017 06:34 - CONCLUSION: No significant interval change. Jimi Orlando MD Head CT 02/24/17 0000 Signed Impressions: Service Date/Time: Friday, February 24, 2017 18:59 - CONCLUSION: 1. No acute hemorrhage or mass effect. 2. Acute sinusitis in the left maxillary sinus. Raul Craig MD Cervical Spine MRI 02/24/17 0000 Signed Impressions: Service Date/Time: Friday, February 24, 2017 22:46 - CONCLUSION: 1. Small central protrusion at C4-5 without canal stenosis. 2. Small central protrusion at C3-4 with minimal extruded component. 3. Mild broad-based disc bulges at C5- 6 and C6-7 levels without canal stenosis. Neto Duenas MD Cervical Spine CT 02/24/17 0000 Signed Impressions: Service Date/Time: Friday, February 24, 2017 19:02 - CONCLUSION: 1. Moderate narrowing of left neural foramina at the C3-4 level secondary to hypertrophic change involving the facet joint. 2. Mild degenerative change at the C5-6 and C6-7 levels. 3. Mild disc osteophyte complex at C5-6 with mild narrowing of the neural foramina. Raul Craig MD Brain MRI 02/24/17 0000 Signed Impressions: Service Date/Time: Friday, February 24, 2017 22:46 - CONCLUSION: 1. No acute intracranial abnormality. 2. Left maxillary sinus disease. 3. No acute infarction. Neto Duenas MD Tubes & Lines: Barrios Tubes & Lines Comment [place] catheter, Drip Comment insulin, heparin, versed, fentanyl, levo (Katina Park. MOLECULAR BIOLOGY PROFESSOR) Physical Exam General Appearance: Well Developed, Well Nourished, Sleeping, Obese (Katina Park MOLECULAR BIOLOGY PROFESSOR) Throat Throat Exam: Oral Mucosa [place] & Moist (Katina Park MOLECULAR BIOLOGY PROFESSOR) Pulmonary Resp Exam: No Distress, Crackles, Decreased Bases, Diminished Breath Sounds ( Katina Park. MOLECULAR BIOLOGY PROFESSOR) Cardiology CV Exam: Regular, Normal Sinus Rhythm (Katina Park MOLECULAR BIOLOGY PROFESSOR) Gastrointestinal/Abdomen GI Exam: Soft, Non-Tender, Bowel Sounds Present, Distended (Katina Park. MOLECULAR BIOLOGY PROFESSOR) Genitourinary Exam: Clear Urine (Katina Park MOLECULAR BIOLOGY PROFESSOR) Musculoskeletal MS Exam: Joints Intact, Normal Tone (Katina Park MOLECULAR BIOLOGY PROFESSOR) Integumentary Skin Exam: Clear, Warm, Dry, Intact (Katina Park MOLECULAR BIOLOGY PROFESSOR) Extremeties Extremities Exam: Pedal Pulses Palpable, Moderate Edema (Katina Park MOLECULAR BIOLOGY PROFESSOR) Neurologic Neuro Exam: Alert, Awake, Oriented, Speech Clear, Moving All Extremities ( Katina Park. MOLECULAR BIOLOGY PROFESSOR) Psychiatric Psych Exam: Appropriate Responses (Katina Park) Assessment/Plan Discussed Condition With: Patient Assessment Summary: Hypotension, Diabetes Mellitus Problem List: (1) Acute renal failure superimposed on chronic kidney disease Plan: RAGHAVENDRA likely due to hypotension, renal hypoperfusion, may have progressed to ATN. renal function has remained stable overnight demonstrating fluid overload, off IVF, given bumex bolus, on gtt at 2 mg/hr monitor renal function continue pressor support to maintain MAP > 65 mmHg Avoid nephrotoxic agents. Prognosis is guarded. Daily renal panel (2) NSTEMI (non-ST elevated myocardial infarction) Plan: Cardiology following. Unstable for catheterization at this time he is on heparin gtt (3) CHF exacerbation Plan: worsened by acute ME. diuresis as tolerated, monitor fluid volume status (4) Pneumonia Plan: Currently on Rocephin, Zithromax, Zithromax (5) Type 2 diabetes mellitus Plan: on insulin drip (Katina Park MOLECULAR BIOLOGY PROFESSOR) Plan patient was seen and examined. Started on Bumex drip this morning. Assess his response. Prognosis is poor. He may be unstable for renal replacement therapy. Continue supportive care. (Pablo Miner MD) Problem Qualifiers (1) CHF exacerbation: Qualified Code: I50.9 - Acute on chronic congestive heart failure, unspecified congestive heart failure type (2) Pneumonia: Qualified Code: J18.1 - Pneumonia of right lower lobe due to infectious organism Katina Park [facility] Feb 27, 2017 09:38 Pablo Miner MD Feb 27, 2017 15:11
[2017-02-27] MEDS: BUMETANIDE INJ 100 ML IV SCH (09:42)
[2017-02-27] MEDS: ALBUMIN HUMAN 25% 25 GM/100 ML BAGP IV SCH ×2 (09:55→21:28)
--- NOTE | 2017-02-27 10:20 | RADRPT ---
EXAM DATE/TIME: 02/27/2017 09:13 [facility] COMPARISON: No previous studies available for comparison. INDICATIONS : Bilateral leg swelling. MEDICAL HISTORY : Myocardial infarction. Hypertension. Chronic obstructive pulmonary disease. CHF. CAD. Asthma. Sleep a pnea. SURGICAL HISTORY : Right knee surgery. Left wrist surgery. Hernia repair. ENCOUNTER: Initial ACUITY: 1 day PAIN SCORE: Non-responsive LOCATION: Bilateral legs. TECHNIQUE: Venous ultrasound of the left and right leg was performed from the inguinal ligament to the proximal calf. Real-time, color Doppler and spectral tracing, compression and augmentation techniques were us ed. FINDINGS: RIGHT LEG: There is normal compressibility of the deep venous system from the inguinal region to the proximal ca lf. No echogenic clot is seen in the lumen of the common femoral, femoral, popliteal, and posterior tibial veins. There is a normal response of the venous system to proximal and distal augmentation an d respiration. LEFT LEG: There is normal compressibility of the deep venous system from the inguinal region to the proximal ca lf. No echogenic clot is seen in the lumen of the common femoral, femoral, popliteal, and posterior tibial veins. There is a normal response of the venous system to proximal and distal augmentation an d respiration. CONCLUSION: Normal examination. Evaristo Massey MD on February 27, 2017 at 10:18 Board Certified Radiologist. This report was verified electronically.
[2017-02-27] MEDS ORDERED: METOPROLOL TARTRATE 5 MG/5 ML VIAL ONE (11:10)
--- NOTE | 2017-02-27 11:44 | EKG ---
Date Performed: 02/27/2017 Time Performed: 11:09:58 PTAGE: 76 years EKG: ATRIAL FIBRILLATION WITH RAPID VENTRICULAR RESPONSE INFERIOR MYOCARDIAL INFARCTION , PROBAB LY OLD WITH POSTERIOR EXTENSION ST DEPRESSION, CONSIDER SUBENDOCARDIAL INJURY ABNORMAL ECG PREVIOUS TRACING : 02/26/2017 13.36 Compared to previous tracing, atrial fibrillation has repla yrn Sinus rhythm , heart rate has increased, anterolateral ST/T changes are now present. DOCTOR: Saroj Beal Interpretating Date/Time 02/27/2017 11:43:26
[2017-02-27] MEDS ORDERED: AMIODARONE 150 MG/D5W 97 ML BOLUS 10 MINUTES IV ONE ×2 (12:00)
[2017-02-27] MEDS: AMIODARONE INJ 450 MG in D5W (EXCEL BAG) 241 ML IV SCH (12:06)
[2017-02-27] MEDS: INSULIN REGULAR 100 UNITS/100 ML NS ALGORITHM 4 IV SCH ×4 (12:07→22:03)
[2017-02-27 12:51] LABS: POTASSIUM 4.1 MEQ/L (3.5-5.1)
[2017-02-27 12:53] LABS: MAGNESIUM 2.5 MG/DL (1.5-2.5)
[2017-02-27 13:50] LABS: ALKALINE PHOSPHATASE 69 U/L (45-117); ALT (GPT) 28 U/L (12-78); ANION GAP 11 MEQ/L (5-15); AST (GOT) 60 U/L (15-37); BICARBONATE 25.5 MEQ/L (21.0-32.0); BLOOD UREA NITROGEN 58 MG/DL (7-18); CHLORIDE 101 MEQ/L (98-107); GLOMERULAR FILTRATION RATE 21 ML/MIN (>89); POTASSIUM 4.1 MEQ/L (3.5-5.1); SODIUM (NA) 137 MEQ/L (136-145); TOTAL BILIRUBIN ADULT 0.4 MG/DL (0.2-1.0)
[2017-02-27] MEDS: MIDAZOLAM 100 MG/NS 100 ML DRIP Premix IV SCH (15:28)
[2017-02-27] MEDS: fentaNYL 2,500 MCG/NS 250 ML IV SCH (15:29)
[2017-02-27] MEDS: ATORVASTATIN 80 MG TAB PO SCH (19:46)
[2017-02-27] MEDS: ASPIRIN EC 81 MG TABEC PO SCH (20:05)
[2017-02-27] MEDS: HEPARIN-D5W INJ 250 ML IV SCH (20:38)
[2017-02-27] MEDS: CHLORHEXIDINE GLUCONATE 2 % 1 PACK (2 CLOTHS) TOP SCH (21:24)
--- NOTE | 2017-02-27 22:59 | MG ---
cc: YENNIFER THORNTON MD Lab No: [id number] Date: 02/27/17 Age: 76 Sex: M Race: DATE OF 10/12/1946 A 76-year-old MALE intubated, some involuntary movement. Generalized 1-2 Hz delta activity occurring 10-40 microvolts with occasional theta intrusion. Limited driving with photic stimulation, although some EEG reactivity variability towards the end. Single lead EKG showing sinus rhythm. INTERPRETATION Moderate to severe encephalopathy. Clinical correlation. MD SAMI Ybarra/ /10:07 PM /10:48 PM
[2017-02-27 23:02] LABS: ALT (GPT) 29 U/L (12-78); ANION GAP 13 MEQ/L (5-15); AST (GOT) 44 U/L (15-37); BICARBONATE 27.2 MEQ/L (21.0-32.0); BLOOD UREA NITROGEN 56 MG/DL (7-18); CHLORIDE 100 MEQ/L (98-107); GLOMERULAR FILTRATION RATE 23 ML/MIN (>89); POTASSIUM 3.6 MEQ/L (3.5-5.1); SODIUM (NA) 140 MEQ/L (136-145)
[2017-02-27 23:05] LABS: ALKALINE PHOSPHATASE 69 U/L (45-117); TOTAL BILIRUBIN ADULT 0.5 MG/DL (0.2-1.0)
[2017-02-28] VITALS (20 sets, daily range): BP systolic 97–151; BP diastolic 48–79; PULSE 110–134; RESP 18; TEMP 97.7–98.7; O2SAT 97–99
[2017-02-28] MEDS: PIPERACIL-TAZO 3.375 GM PREMIX 50 ML IV SCH ×4 (01:32→22:04)
[2017-02-28] MEDS: BUMETANIDE INJ 100 ML IV SCH (01:39)
[2017-02-28] MEDS: RESP: ALBUTEROL 2.5 MG/IPRATROPIUM 0.5 MG NEB (SCH) INH ×6 (03:07→23:06)
[2017-02-28] MEDS: MIDAZOLAM 100 MG/NS 100 ML DRIP Premix IV SCH ×2 (03:25→16:30)
[2017-02-28] MEDS: methylPREDNISolone SOD SUCC 125 MG/2 ML VIAL IV PUSH SCH ×3 (03:25→22:03)
[2017-02-28 03:50] LABS: AUTOMATED NEUTROPHIL # 4.9 TH/MM3 (1.8-7.7); HEMATOCRIT 27.7 % (39.0-51.0); HEMO FLAGS DIFF FINAL; LYMPH % 3.7 % (9.0-44.0); LYMPHOCYTE # 0.2 TH/MM3 (1.0-4.8); MEAN CELL VOLUME 88.8 FL (80.0-100.0); MEAN CORPUSCULAR HEMOGLOBIN 30.4 PG (27.0-34.0); MEAN CORPUSCULAR HGB CONC 34.2 % (32.0-36.0); MONO % 3.1 % (0.0-8.0); NEUT % 93.2 % (16.0-70.0); PLATELET COUNT 165 TH/MM3 (150-450); RED BLOOD COUNT 3.12 MIL/MM3 (4.50-5.90); RED CELL DISTRIBUTION WIDTH 14.4 % (11.6-17.2); WHITE BLOOD COUNT 5.2 TH/MM3 (4.0-11.0)
[2017-02-28 03:53] LABS: APTT (PATIENT) 45.3 SEC (24.3-30.1)
[2017-02-28 04:06] LABS: ANION GAP 13 MEQ/L (5-15); AST (GOT) 39 U/L (15-37); BLOOD UREA NITROGEN 58 MG/DL (7-18); CHLORIDE 100 MEQ/L (98-107); GLOMERULAR FILTRATION RATE 22 ML/MIN (>89); POTASSIUM 3.5 MEQ/L (3.5-5.1); SODIUM (NA) 139 MEQ/L (136-145)
[2017-02-28 04:10] LABS: ALKALINE PHOSPHATASE 68 U/L (45-117); ALT (GPT) 25 U/L (12-78); TOTAL BILIRUBIN ADULT 0.6 MG/DL (0.2-1.0)
--- NOTE | 2017-02-28 06:20 | RADRPT ---
EXAM DATE/TIME: 02/28/2017 03:48 [facility] COMPARISON: CHEST SINGLE AP, February 27, 2017, 8:47. INDICATIONS : Shortness of breath, possible pulmonary disease. MEDICAL HISTORY : None. SURGICAL HISTORY : None. ENCOUNTER: Subsequent ACUITY: 1 week PAIN SCORE: Non-responsive. LOCATION: Bilateral chest FINDINGS: The cardiac silhouette is enlarged in transverse diameter. Support lines and tubes are in satisfactor y position. There is bilateral lower lobe atelectasis versus pneumonia. Moderate size bilateral pleur al effusions are identified. CONCLUSION: 1. Bilateral lower lobe atelectasis versus pneumonia. Bilateral pleural effusions are identified. The re has been no significant change when compared to the prior exam. Israel Mathur MD on February 28, 2017 at 6:18 Board Certified Radiologist. This report was verified electronically.
[2017-02-28] MEDS: BUDESONIDE-FORMOTEROL 160/4.5 MCG INHALER INH SCH (07:30)
[2017-02-28] MEDS: CHLORHEXIDINE 0.12% (ORAL KIT) 15 ML CUP MT SCH ×2 (08:00→21:11)
[2017-02-28] MEDS: AZITHROMYCIN INJ 500 MG in SODIUM CHLOR 0.9% 250 ML INJ 250 ML IV SCH (08:57)
[2017-02-28] MEDS: PANTOPRAZOLE SODIUM 40 MG VIAL IV SCH (08:58)
[2017-02-28] MEDS: DOCUSATE SODIUM 100 MG CAP PO SCH ×2 (08:58→21:12)
[2017-02-28] MEDS: SODIUM CHLORIDE 0.9% FLUSH 10 ML FLUSH IV FLUSH SCH ×2 (08:58→21:12)
[2017-02-28] MEDS ORDERED: GLYCERIN ADULT 2 GM SUPP RECTAL PRN (09:30)
[2017-02-28] MEDS ORDERED: SENNOSIDES SYRUP 8.8 MG/5 ML CUP PO ONE (09:30)
--- NOTE | 2017-02-28 09:35 | HHI.CCPN ---
Subjective Remarks/Hospital Course Per overnight senior enterprise architect 02/26/17 Responded to [facility] overhead. Upon arrival to F pod discovered that patient was awake and normotensive, with sinus tachycardia in the 150s in severe respiratory distress. He had not lost a pulse but [facility] had been called to facilitate rapid evaluation and stabilization. 76-year-old male with past history of obesity, COPD, obstructive sleep apnea on CPAP, CHF, peripheral neuropathy, hypertension, diabetes, hyperlipidemia, obesity who receives medical care at the [facility] He presented to [facility] emergency department 02/25/17 with falls and difficulty with balance. He also reported that he was having shortness of breath and cough for several days. Was not febrile in hospital. On the day of admission he had some chest pain across his chest. Troponins negative. He was treated for pneumonia with Rocephin and azithromycin. He was placed on steroids Solu-Medrol 60 mg IV every 6 hours. Received Lasix at about 6 PM on due to concern for volume overload. Echo had poor images but systolic function appeared reduced. Tonight he developed acutely worsening shortness of breath and Dr. Galicia presented to the emergency Department to evaluate him where he was found to be tachypneic and wheezing. He was given a neb and preparations were being made to place him on BiPAP. He was becoming less responsive and was looking upward when I arrived and respiratory was placing on Bipap. He was in extremis and it was felt he would need emergent intubation prior to transfer to ICU. He denied chest pain. He was preoxygenated on Bipap, did seem to become more alert and nodded that he agreed with proceeding with intubation. He was intubated in F pod and then transferred to [facility]. Upon arrival to [facility] he was in atrial fibrillation in the 130s. SBP was 90/50 then 64/40. Central line was placed and he converted to sinus tachycadia in 101-130s. Subsequently he was normotensive with MAP 71. He was also sedated with propofol during the hypotension, improved after transition to fentanyl drip. 02/27: PA catheter placed yesterday. PA catheter readings are more consistent distributive/septic shock with high cardiac output with low SVR. CO 10-11. CI 2.8 SVRI [id number]. D/W Dr Butts. Will hold off Flolan challenge at this time for high PA pressure- mean 59-60. After weaning pressors, PA mean pressure is about 40. Patient's hemodynamics have improved, vasopressin is off now, Levophed is at 4 mics per minute. Give Bumex 2 mg 1 on Bumex drip at 2 mg per hour per Dr. Miner Subjective 02/28: Afebrile. Arousable on the vent and moves 4 extremities spontaneously but doesn't follow commands. No bowel movement since admission. Currently nothing by mouth. Remains on low-dose vasopressors including vasopressin and Levophed Objective Vital Signs Date Time Temp Pulse Resp B/P Pulse Ox O2 Delivery O2 Flow Rate FiO2 02/28/17 07:45 98 40 02/28/17 06:00 111 02/28/17 06:00 116/51 115/49 02/28/17 04:00 97.7 18 02/26/17 00:30 6.00 02/25/17 19:24 Nasal Cannula Intake and Output 02/27/17 02/27/17 02/28/17 08:00 16:00 00:00 Intake Total 475 ml 1125 ml 457 ml Output Total 275 ml 1300 ml 1800 ml Balance 200 ml -175 ml -1343 ml Result Diagram: 02/28/17 0329 02/28/17 0329 Other Results Microbiology Date/Time Procedure Status Source Growth 02/26/17 11:24 Aerobic Blood Culture - Preliminary Resulted Blood Peripheral NO GROWTH IN 1 DAY 02/26/17 11:24 Anaerobic Blood Culture - Preliminary Resulted Blood Peripheral NO GROWTH IN 1 DAY 02/26/17 03:20 Gram Stain - Final Resulted Sputum Endotracheal 02/26/17 03:20 Sputum Culture - Preliminary Resulted Sputum Endotracheal NO GROWTH IN 24 HOURS. 02/26/17 02:15 Urine Culture - Final Complete Urine Catheterized Urine NO GROWTH IN 48 HOURS. 02/25/17 16:45 Influenza Types A,B Antigen (CHIOMA) - Final Complete Nasal Washing NEGATIVE FOR FLU A AND B ANTIGEN.... 02/25/17 15:24 Legionella Antigen - Final Complete Urine Clean Catch PRESUMPTIVE NEGATIVE FOR LEGIONELLA P... 02/25/17 15:24 Streptococcus pneumoniae Antigen (M - Final Complete Urine Clean Catch PRESUMPTIVE NEGATIVE FOR STREPTOCOCCU... Imaging Last Impressions Chest X-Ray 02/28/17 0600 Signed Impressions: Service Date/Time: Tuesday, February 28, 2017 03:48 - CONCLUSION: 1. Bilateral lower lobe atelectasis versus pneumonia. Bilateral pleural effusions are identified. There has been no significant change when compared to the prior exam. Israel Mathur MD Lower Extremity Ultrasound 02/27/17 0000 Signed Impressions: Service Date/Time: Monday, February 27, 2017 09:13 - CONCLUSION: Normal examination. Evaristo Massey MD Head CT 02/24/17 0000 Signed Impressions: Service Date/Time: Friday, February 24, 2017 18:59 - CONCLUSION: 1. No acute hemorrhage or mass effect. 2. Acute sinusitis in the left maxillary sinus. Raul Craig MD Cervical Spine MRI 02/24/17 0000 Signed Impressions: Service Date/Time: Friday, February 24, 2017 22:46 - CONCLUSION: 1. Small central protrusion at C4-5 without canal stenosis. 2. Small central protrusion at C3-4 with minimal extruded component. 3. Mild broad-based disc bulges at C5- 6 and C6-7 levels without canal stenosis. Neto Duenas MD Cervical Spine CT 02/24/17 0000 Signed Impressions: Service Date/Time: Friday, February 24, 2017 19:02 - CONCLUSION: 1. Moderate narrowing of left neural foramina at the C3-4 level secondary to hypertrophic change involving the facet joint. 2. Mild degenerative change at the C5-6 and C6-7 levels. 3. Mild disc osteophyte complex at C5-6 with mild narrowing of the neural foramina. Raul Craig MD Brain MRI 02/24/17 0000 Signed Impressions: Service Date/Time: Friday, February 24, 2017 22:46 - CONCLUSION: 1. No acute intracranial abnormality. 2. Left maxillary sinus disease. 3. No acute infarction. Neto Duenas MD Objective Remarks GENERAL: 56-year-old male, critically ill currently resting in bed in no acute distress SKIN: Warm and dry. Perfusing adequately HEAD: Atraumatic. Normocephalic. EYES: Pupils equal and round 3-4 mm and reactive bilaterally. No scleral icterus. No injection or drainage. ENT: Orotracheally intubated NECK: Trachea midline. Right IJ introducer in place, with PA catheter in place. CARDIOVASCULAR: Tachycardic, IR. S1, S2. No S4. Faint 1/6 systolic murmur right upper sternal border RESPIRATORY: Few crackles appreciated bilaterally. Symmetrical excursion. GASTROINTESTINAL: Abdomen obese, protuberant, small umbilical reducible hernia. Bowel sounds are hypoactive no voluntary guarding. MUSCULOSKELETAL: Extremities with chronic 2+ pitting bilateral lower extremity edema up to knee. Chronic venous stasis/lymphedema NEUROLOGICAL: Cranial nerves II through XII grossly intact. Moves all 4 extremity spontaneously. Positive gag. Positive corneal reflex. Urinary Catheter: Yes Assessment to: Continue Barrios insert reason: ICU Pt Getting Diuretics Vascular Central Line Catheter: Yes Assessment to: Continue A/P Assessment and Plan NEURO/PSYCH: Acute encephalopathy - secondary to hypercapnea and hypoxemia Peripheral neuropathy Allergic rhinitis Currently on Versed drip at 5 mg an hour and Fentanyl drip at 70 g an hour for sedation/analgesia while intubated Goal of RASS -2 Daily sedation vacation MRI brain 02/24 - no acute abnormality MRI C-spinesmall central protrusion at C3/C4 with mild extruded central spinal cord C4-C5 without canal stenosis with mild disc bulging C5/6 and C6/7 EEG 02/27 revealed moderate to severe encephalopathy. No epileptiform activity Questionable history of EtOH use/abuse. We'll start on thiamine/folate and multivitamin today Check Neurontin level. Previously on 600 mg 3 times a day. Currently on hold Holding Flonase twice a day/Zyrtec 5 mill grams daily. Resume as clinically indicated RESP: Acute hypoxemic and hypercapnic respiratory failure Acute COPD exacerbation History of asthma? Acute on chronic pulmonary artery hypertension Objective sleep apnea - noncompliant with CPAP History of tobacco abuse ACV 18/600/5/40 Ventilator bundle DuoNeb every 4 hours with albuterol every 2 hours when necessary Add Pulmicort twice a day Solumedrol 40 milligrams every q8 Chest x-ray today reveals bilateral pleural effusions/infiltrates. Stable from previous x-ray Last CVP was 8 Home medication regimen is Symbicort 160/4.5 to press twice a day, Spiriva 18 inhalation daily and Ventolin 4 times a day with duo nebs aerosols for breakthrough every 4 hours when necessary According to records, noncompliant with CPAP for SEBASTIAN Airway edema noted particularly large arytenoid edema noted on intubation 02/26 with anterior airway. Intubated with Glidescope and 7.5 ETT. Cardiovascular: Shock, distributive/septic resolving Acute on chronic systolic heart failure EF 25-30% Moderate Moderate to severe TR NSTEMI Paroxysmal atrial fibrillation/flutter History of Hypertension Hyperlipidemia History of coronary artery disease Continue to wean Levophed and vasopressin to keep map above 65 Currently deferred at 3 mcg/m and vasopressin 0.04 units an minute PAC placed 02/26: Numbers at that time consistent with distributive shock (CI 2.8 , SVRI 1300). Currently cardiac index at 2.1. Cardiac output 5.2 and SVR 1250 this could be possibly be vaso constrictive/late sepsis versus effects of diuresis It is unclear whether pulmonary hypertension is secondary to left heart failure , or is it secondary to obstructive sleep apnea and COPD Unable to do transpulmonary gradient secondary to unable to wedge Possibly remove [place]. Ask cardiology Cardiology Dr. Butts Continue IV heparin for NSTEMI and A Fib Bumex 2 mg IV 1 today and initiated Bumex infusion at 1 mg per hour Continue aspirin 81 mg daily Continue amiodarone drip at 0.5 mg a minute to transition to oral when okay with cardiology Troponin peaked at 27. Left heart catheters were clinical stable Continue atorvastatin 80 mg daily at bedtime for dyslipidemia Unable to use beta charles secondary due to shock. On Lopressor 200 mg daily at home. Other blood pressures include lisinopril 40 mg daily and HCTZ 12.5 mg daily. On hold due to acute kidney injury Echo 02/27: - Systolic function was severely reduced 25% to 30%. Diffuse hypokinesis. -Aortic valve: moderate stenosis. Tricuspid valve: Moderate/severe regurg. SUZAN 70 mmHg GI: Nothing by mouth. We'll start tube feeding with Glucerna 1.5 goal 55 cc an hour Protonix daily Colace and Senokot twice a day for bowel regimen : BPH Holding doxazosin 8 mg daily light of hypotension Maintain Barrios for accurate I's and O's in a critically ill patient/Bumex drip FEN/RENAL: Acute kidney injury/ATN Monitor intake and output. Monitor electrolytes Replace electrolytes as clinically indicated Bumex 2 mg IV 1 and Bumex infusion at 1 mg per hour Greater than 4 L urine output past 24 hours ID: Acute community acquired pneumonia Septic shock Zosyn/azithromycin. Single dose of vancomycin Microbiology: 4/11blood culture 2 setsno growth to date 02/25sputum - no growth 02/25urine Legionella and pneumococcal antigen negative 02/25influenza screen negative 02/26 - urine - no growth 02/26 - blood cultures 2 - no growth HEME: Normocytic anemia No indication for transfusion of blood products at this time Continue IV heparin drip at 10,000 units an hour with aggressive A. fib/ nonsustained ENDO: Poorly controlled diabetes mellitus - hemoglobin A1c of 8.6 Insulin drip algorithm #4 currently at 7 units an hour At home on Lantus 35 units twice a day and not a lot 15 units 3 times a day with meals MSK Chronic lymphedema Osteoporosis/osteoarthritis Resume Lac-Hydrin twice a day for lower extremity lymphedema 02/27 venous Dopplers showed no DVT Hold Risedronate 35 mg mg weekly for osteoporosis PROPH: Protonix 40 mg IV daily for stress ulcer prophylaxis. Heparin drip as per above ACCESS: Right subclavian central venous line placed 02/26 #3 Right IJ Cordis/1 day #2 Full code Critical care time 80 minutes exclusive of separately billable procedures. Ramo Almaraz MD Feb 28, 2017 09:35
[2017-02-28] MEDS ORDERED: POLYETHYLENE GLYCOL 17 GM PKG PO ONE (09:45)
[2017-02-28] MEDS: AMIODARONE INJ 450 MG in D5W (EXCEL BAG) 241 ML IV SCH (10:44)
[2017-02-28] MEDS ORDERED: THIAMINE INJ 100 MG in SODIUM CHLORIDE 0.9% INJ 100 ML IV ONE (11:00)
--- NOTE | 2017-02-28 11:21 | PD.CARD.PN ---
Objective Vital Signs / I&O Vital Signs Date Time Temp Pulse Resp B/P Pulse Ox O2 Delivery O2 Flow Rate FiO2 02/28/17 10:00 118 02/28/17 08:00 110 02/28/17 08:00 40 02/28/17 08:00 98.1 110 18 129/79 97 151/60 02/28/17 07:45 98 40 02/28/17 06:00 111 02/28/17 06:00 134 116/51 115/49 02/28/17 04:17 134 116/51 115/49 02/28/17 04:02 97 40 02/28/17 04:00 97.7 119 18 127/54 98 130/52 02/28/17 04:00 40 02/28/17 04:00 119 02/28/17 02:00 117 02/28/17 01:01 97 40 02/28/17 00:00 113 02/28/17 00:00 40 02/28/17 00:00 97.9 125 18 116/52 98 129/49 02/27/17 22:45 134 125/48 120/52 02/27/17 22:13 96 40 02/27/17 22:00 113 02/27/17 20:00 40 02/27/17 20:00 134 117/53 108/52 02/27/17 20:00 98.1 121 18 123/47 98 128/53 02/27/17 20:00 113 02/27/17 19:09 99 40 02/27/17 18:00 134 121/68 111/48 02/27/17 18:00 113 02/27/17 16:58 97 40 02/27/17 16:00 129 02/27/17 16:00 40 02/27/17 16:00 97.9 129 18 121/73 98 120/53 02/27/17 14:00 135 02/27/17 13:25 100 40 02/27/17 13:00 134 122/76 112/48 02/27/17 12:00 98.0 135 18 116/84 99 138/56 02/27/17 12:00 135 02/27/17 12:00 45 I/O 4/14/17 4/14/17 4/14/17 4/15/17 4/15/17 4/15/17 07:00 15:00 23:00 07:00 15:00 23:00 Intake Total 475 ml 1125 ml 457 ml 425 ml Output Total 275 ml 1300 ml 1800 ml 1375 ml Balance 200 ml -175 ml -1343 ml -950 ml Intake IV Total 475 ml 1025 ml 457 ml 425 ml Albumin 100 ml Output Urine Total 275 ml 1250 ml 1750 ml 1375 ml Gastric Drainage Total 50 ml 50 ml Laboratory Laboratory Tests Test 02/27/17 02/27/17 02/28/17 12:30 22:11 03:29 Sodium Level 137 MEQ/L 140 MEQ/L 139 MEQ/L Potassium Level 4.1 MEQ/L 3.6 MEQ/L 3.5 MEQ/L Chloride Level 101 MEQ/L 100 MEQ/L 100 MEQ/L Carbon Dioxide Level 25.5 MEQ/L 27.2 MEQ/L 26.0 MEQ/L Anion Gap 11 MEQ/L 13 MEQ/L 13 MEQ/L Blood Urea Nitrogen 58 MG/DL 56 MG/DL 58 MG/DL Creatinine 2.92 MG/DL 2.74 MG/DL 2.78 MG/DL Estimat Glomerular Filtration 21 ML/MIN 23 ML/MIN 22 ML/MIN Rate Random Glucose 190 MG/DL 146 MG/DL 159 MG/DL Calcium Level 7.9 MG/DL 8.2 MG/DL 8.2 MG/DL Magnesium Level 2.5 MG/DL Total Bilirubin 0.4 MG/DL 0.5 MG/DL 0.6 MG/DL Aspartate Amino Transf 60 U/L 44 U/L 39 U/L (AST/SGOT) Alanine Aminotransferase 28 U/L 29 U/L 25 U/L (ALT/SGPT) Alkaline Phosphatase 69 U/L 69 U/L 68 U/L Total Protein 6.0 GM/DL 6.3 GM/DL 6.1 GM/DL Albumin 3.0 GM/DL 3.4 GM/DL 3.2 GM/DL White Blood Count 5.2 TH/MM3 Red Blood Count 3.12 MIL/MM3 Hemoglobin 9.5 GM/DL Hematocrit 27.7 % Mean Corpuscular Volume 88.8 FL Mean Corpuscular Hemoglobin 30.4 PG Mean Corpuscular Hemoglobin 34.2 % Concent Red Cell Distribution Width 14.4 % Platelet Count 165 TH/MM3 Mean Platelet Volume 8.7 FL Neutrophils (%) (Auto) 93.2 % Lymphocytes (%) (Auto) 3.7 % Monocytes (%) (Auto) 3.1 % Eosinophils (%) (Auto) 0.0 % Basophils (%) (Auto) 0.0 % Neutrophils # (Auto) 4.9 TH/MM3 Lymphocytes # (Auto) 0.2 TH/MM3 Monocytes # (Auto) 0.2 TH/MM3 Eosinophils # (Auto) 0.0 TH/MM3 Basophils # (Auto) 0.0 TH/MM3 CBC Comment DIFF FINAL Differential Comment Activated Partial 45.3 SEC Thromboplast Time Assessment and Plan Problem List: (1) NSTEMI (non-ST elevated myocardial infarction) Assessment and Plan: Acute respiratory distress appears to be multifactorial. PNA, COPD, CHF CHF, acute systolic Cardiomyopathy - EF 25%. Severe PHTN NSTEMI ARF Sepsis At least moderate aortic stenosis. unable to tolerate BB, ERLIN due to hypotension. wean pressors as tolerated +i/o 4 L. start diuresis. follow Cr. severe PHTN. unable to obtain wedge pressure to calculate transpulmonary gradient. suspect primarily due to increased left sided pressure although intrinsic pulmonary disease may also have a component when off pressors, and after diuresis, we could consider Flolan challenge if transpulmonary gradient is > 12. NSTEMI - eventually will need LHC, but not stable now. hemodynamics are more suggestive of septic shock than cardiac based on CI and SVR. (2) Acute CHF (3) Shock Assessment and Plan: see above (4) Atrial fibrillation Assessment and Plan: Rates slightly high, on amio ggt ;once off pressors can be more aggressive w/ rate control; anticoagulation can be considered once more stable and procedures complete. Assessment and Plan Overall no changes to plan, seems to be slowly improving Mohit Romero MD Feb 28, 2017 11:21
[2017-02-28] MEDS: BENEPROTEIN POWDER 1 PACK G-TUBE SCH ×2 (12:05→19:26)
[2017-02-28] MEDS: ARTIFICIAL TEARS OPTH SOLN 15 ML BTL EACH EYE SCH ×2 (12:07→21:12)
--- NOTE | 2017-02-28 15:05 | HHI.NPPN ---
Subjective General Problems: Edema, Hypotension Renal Failure: Acute Review of Systems General General Remarks unable to evaluate Objective Data Data 02/27/17 02/28/17 19:00 07:00 Intake Total 1125 ml 882 ml Output Total 1300 ml 3175 ml Balance -175 ml -2293 ml Intake IV Total 1025 ml 882 ml Albumin 100 ml Output Urine Total 1250 ml 3125 ml Gastric Drainage Total 50 ml 50 ml Vital Signs Date Time Temp Pulse Resp B/P Pulse Ox O2 Delivery O2 Flow Rate FiO2 02/28/17 14:00 112 02/28/17 12:00 98.4 116 18 120/70 97 135/57 02/28/17 12:00 40 02/28/17 12:00 116 02/28/17 11:55 97 40 02/28/17 10:00 118 02/28/17 08:00 110 02/28/17 08:00 40 02/28/17 08:00 98.1 110 18 129/79 97 151/60 02/28/17 07:45 98 40 02/28/17 06:00 111 02/28/17 06:00 134 116/51 115/49 02/28/17 04:17 134 116/51 115/49 02/28/17 04:02 97 40 02/28/17 04:00 97.7 119 18 127/54 98 130/52 02/28/17 04:00 40 02/28/17 04:00 119 02/28/17 02:00 117 02/28/17 01:01 97 40 02/28/17 00:00 113 02/28/17 00:00 40 02/28/17 00:00 97.9 125 18 116/52 98 129/49 02/27/17 22:45 134 125/48 120/52 02/27/17 22:13 96 40 02/27/17 22:00 113 02/27/17 20:00 40 02/27/17 20:00 134 117/53 108/52 02/27/17 20:00 98.1 121 18 123/47 98 128/53 02/27/17 20:00 113 02/27/17 19:09 99 40 02/27/17 18:00 134 121/68 111/48 02/27/17 18:00 113 02/27/17 16:58 97 40 02/27/17 16:00 129 02/27/17 16:00 40 02/27/17 16:00 97.9 129 18 121/73 98 120/53 -: 02/28/17 0329 02/28/17 0329 Tubes & Lines: Barrios Tubes & Lines Comment [place] Lu[place] catheter, Drip Comment insulin, heparin, versed, fentanyl, levo Physical Exam General Appearance: Well Developed, Well Nourished, Sleeping, Obese Throat Throat Exam: Oral Mucosa [place] & Moist Pulmonary Resp Exam: No Distress, Crackles, Decreased Bases, Diminished Breath Sounds Cardiology CV Exam: Regular, Normal Sinus Rhythm Gastrointestinal/Abdomen GI Exam: Soft, Non-Tender, Bowel Sounds Present, Distended Genitourinary Exam: Clear Urine Musculoskeletal MS Exam: Joints Intact, Normal Tone Integumentary Skin Exam: Clear, Warm, Dry, Intact Extremeties Extremities Exam: Pedal Pulses Palpable, Moderate Edema Neurologic Neuro Exam: Alert, Awake, Oriented, Speech Clear, Moving All Extremities Psychiatric Psych Exam: Appropriate Responses Assessment/Plan Discussed Condition With: Patient Assessment Summary: Hypotension, Diabetes Mellitus Problem List: (1) Acute renal failure superimposed on chronic kidney disease Plan: RAGHAVENDRA likely due to hypotension, renal hypoperfusion, may have progressed to ATN. renal function has remained stable overnight demonstrating fluid overload, off IVF, given bumex bolus, on gtt at 2 mg/hr UOP Greater then 4 L K low replace (2) NSTEMI (non-ST elevated myocardial infarction) Plan: Cardiology following. Unstable for catheterization at this time he is on heparin gtt (3) CHF exacerbation Plan: worsened by acute ND. diuresis as tolerated, monitor fluid volume status (4) Pneumonia Plan: Currently on Rocephin, Zithromax, Zithromax (5) Type 2 diabetes mellitus Plan: on insulin drip Problem Qualifiers (1) CHF exacerbation: Qualified Code: I50.9 - Acute on chronic congestive heart failure, unspecified congestive heart failure type (2) Pneumonia: Qualified Code: J18.1 - Pneumonia of right lower lobe due to infectious organism Gage Boone MD Feb 28, 2017 15:05 congestive heart failure type (2) Pneumonia: Qualified Code: J18.1 - Pneumonia of right lower lobe due to infectious organism Ggae Boone MD Feb 28, 2017 15:05
[2017-02-28 16:58] LABS: ALKALINE PHOSPHATASE 61 U/L (45-117); ALT (GPT) 24 U/L (12-78); ANION GAP 9 MEQ/L (5-15); AST (GOT) 28 U/L (15-37); BICARBONATE 30.6 MEQ/L (21.0-32.0); BLOOD UREA NITROGEN 63 MG/DL (7-18); CHLORIDE 99 MEQ/L (98-107); GLOMERULAR FILTRATION RATE 21 ML/MIN (>89); MAGNESIUM 2.2 MG/DL (1.5-2.5); POTASSIUM 3.1 MEQ/L (3.5-5.1); SODIUM (NA) 139 MEQ/L (136-145); TOTAL BILIRUBIN ADULT 0.4 MG/DL (0.2-1.0)
[2017-02-28] MEDS: INSULIN REGULAR 100 UNITS/100 ML NS ALGORITHM 4 IV SCH ×2 (17:54)
[2017-02-28] MEDS: LACTIC ACID (AMMONIUM LACTATE) 12% LOTION 225 GM BTL TOPICAL SCH (21:12)
[2017-02-28] MEDS: SENNOSIDES SYRUP 8.8 MG/5 ML CUP PO SCH (21:12)
[2017-02-28] MEDS: ASPIRIN EC 81 MG TABEC PO SCH (21:13)
[2017-02-28] MEDS: fentaNYL 2,500 MCG/NS 250 ML IV SCH (21:13)
[2017-02-28] MEDS: ATORVASTATIN 80 MG TAB PO SCH (21:13)
[2017-02-28] MEDS: RESP: BUDESONIDE 0.5 MG/2 ML NEB NEB SCH (21:36)
[2017-02-28 22:30] LABS: ALT (GPT) 22 U/L (12-78); ANION GAP 12 MEQ/L (5-15); AST (GOT) 25 U/L (15-37); BICARBONATE 29.4 MEQ/L (21.0-32.0); BLOOD UREA NITROGEN 66 MG/DL (7-18); CHLORIDE 99 MEQ/L (98-107); GLOMERULAR FILTRATION RATE 22 ML/MIN (>89); MAGNESIUM 2.1 MG/DL (1.5-2.5); POTASSIUM 3.1 MEQ/L (3.5-5.1); SODIUM (NA) 140 MEQ/L (136-145)
[2017-02-28 22:33] LABS: ALKALINE PHOSPHATASE 61 U/L (45-117); CREATINE KINASE 460 U/L (39-308); TOTAL BILIRUBIN ADULT 0.5 MG/DL (0.2-1.0)
[2017-02-28 23:00] LABS: CKMB 1.6 NG/ML (0.5-3.6)
[2017-03-01] VITALS (19 sets, daily range): BP systolic 96–146; BP diastolic 44–78; PULSE 7–151; RESP 18; TEMP 97.6–98.7; O2SAT 95–98
[2017-03-01] MEDS: BUMETANIDE INJ 100 ML IV SCH (00:09)
[2017-03-01] MEDS: AMIODARONE INJ 450 MG in D5W (EXCEL BAG) 241 ML IV SCH ×2 (00:09→16:05)
[2017-03-01] MEDS: HEPARIN-D5W INJ 250 ML IV SCH (01:57)
[2017-03-01] MEDS: RESP: ALBUTEROL 2.5 MG/IPRATROPIUM 0.5 MG NEB (SCH) INH ×6 (02:58→23:40)
[2017-03-01] MEDS: CHLORHEXIDINE GLUCONATE 2 % 1 PACK (2 CLOTHS) TOP SCH (03:00)
[2017-03-01] MEDS: PIPERACIL-TAZO 3.375 GM PREMIX 50 ML IV SCH ×4 (04:13→22:09)
[2017-03-01 04:23] LABS: AUTOMATED NEUTROPHIL # 5.8 TH/MM3 (1.8-7.7); BASOPHIL % 0.1 % (0.0-2.0); HEMATOCRIT 29.3 % (39.0-51.0); HEMO FLAGS DIFF FINAL; LYMPH % 3.8 % (9.0-44.0); LYMPHOCYTE # 0.2 TH/MM3 (1.0-4.8); MEAN CELL VOLUME 89.3 FL (80.0-100.0); MEAN CORPUSCULAR HEMOGLOBIN 29.5 PG (27.0-34.0); MEAN CORPUSCULAR HGB CONC 33.1 % (32.0-36.0); MONO % 4.2 % (0.0-8.0); NEUT % 91.9 % (16.0-70.0); PLATELET COUNT 173 TH/MM3 (150-450); RED BLOOD COUNT 3.28 MIL/MM3 (4.50-5.90); RED CELL DISTRIBUTION WIDTH 14.5 % (11.6-17.2); WHITE BLOOD COUNT 6.4 TH/MM3 (4.0-11.0)
[2017-03-01 04:25] LABS: APTT (PATIENT) 41.2 SEC (24.3-30.1)
[2017-03-01 04:53] LABS: ALKALINE PHOSPHATASE 61 U/L (45-117); ALT (GPT) 24 U/L (12-78); ANION GAP 12 MEQ/L (5-15); AST (GOT) 25 U/L (15-37); BICARBONATE 29.7 MEQ/L (21.0-32.0); BLOOD UREA NITROGEN 68 MG/DL (7-18); CHLORIDE 96 MEQ/L (98-107); GLOMERULAR FILTRATION RATE 18 ML/MIN (>89); POTASSIUM 3.1 MEQ/L (3.5-5.1); SODIUM (NA) 138 MEQ/L (136-145); TOTAL BILIRUBIN ADULT 0.5 MG/DL (0.2-1.0)
[2017-03-01] MEDS: methylPREDNISolone SOD SUCC 125 MG/2 ML VIAL IV PUSH SCH ×3 (05:43→22:09)
[2017-03-01] MEDS: MIDAZOLAM 100 MG/NS 100 ML DRIP Premix IV SCH ×2 (05:43→17:37)
[2017-03-01] MEDS: ARTIFICIAL TEARS OPTH SOLN 15 ML BTL EACH EYE SCH ×3 (05:43→22:10)
[2017-03-01] MEDS ORDERED: POTASSIUM CHLOR 40 MEQ PREMIX 100 ML IV ONE (08:00)
--- NOTE | 2017-03-01 08:01 | HHI.CCPN ---
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 Upon arrival to F pod discovered that patient was awake and normotensive, with sinus tachycardia in the 150s in severe respiratory distress. He had not lost a pulse but [facility] had been called to facilitate rapid evaluation and stabilization. 76-year-old male with past history of obesity, COPD, obstructive sleep apnea on CPAP, CHF, peripheral neuropathy, hypertension, diabetes, hyperlipidemia, obesity who receives medical care at the [facility]. He presented to [facility] emergency department 02/25/17 with falls and difficulty with balance. He also reported that he was having shortness of breath and cough for several days. Was not febrile in hospital. On the day of admission he had some chest pain across his chest. Troponins negative. He was treated for pneumonia with Rocephin and azithromycin. He was placed on steroids Solu-Medrol 60 mg IV every 6 hours. Received Lasix at about 6 PM on due to concern for volume overload. Echo had poor images but systolic function appeared reduced. Tonight he developed acutely worsening shortness of breath and Dr. Galicia presented to the emergency Department to evaluate him where he was found to be tachypneic and wheezing. He was given a neb and preparations were being made to place him on BiPAP. He was becoming less responsive and was looking upward when I arrived and respiratory was placing on Bipap. He was in extremis and it was felt he would need emergent intubation prior to transfer to ICU. He denied chest pain. He was preoxygenated on Bipap, did seem to become more alert and nodded that he agreed with proceeding with intubation. He was intubated in F pod and then transferred to [facility]. Upon arrival to [facility] he was in atrial fibrillation in the 130s. SBP was 90/50 then 64/40. Central line was placed and he converted to sinus tachycadia in 101-130s. Subsequently he was normotensive with MAP 71. He was also sedated with propofol during the hypotension, improved after transition to fentanyl drip. 02/27: PA catheter placed yesterday. PA catheter readings are more consistent distributive/septic shock with high cardiac output with low SVR. CO 10-11. CI 2.8 SVRI [id number]. D/W Dr Butts. Will hold off Flolan challenge at this time for high PA pressure- mean 59-60. After weaning pressors, PA mean pressure is about 40. Patient's hemodynamics have improved, vasopressin is off now, Levophed is at 4 mics per minute. Give Bumex 2 mg 1 on Bumex drip at 2 mg per hour per Dr. Miner 02/28: Afebrile. Arousable on the vent and moves 4 extremities spontaneously but doesn't follow commands. No bowel movement since admission. Currently nothing by mouth. Remains on low-dose vasopressors including vasopressin and Levophed Subjective 03/01: [place] Luisa catheter removed yesterday. Adequate urine output on Bumex drip at 1 mg an hour. Afebrile. Currently replaced potassium. Objective Vital Signs Date Time Temp Pulse Resp B/P Pulse Ox O2 Delivery O2 Flow Rate FiO2 03/01/17 06:00 112 03/01/17 04:23 97 40 03/01/17 04:00 97.6 18 101/56 110/49 02/26/17 00:30 6.00 02/25/17 19:24 Nasal Cannula Intake and Output 02/28/17 02/28/17 03/01/17 08:00 16:00 00:00 Intake Total 425 ml 982 ml 594 ml Output Total 1375 ml 2030 ml 1350 ml Balance -950 ml -1048 ml -756 ml Result Diagram: 03/01/17 0335 03/01/17 0335 Other Results Microbiology Date/Time Procedure Status Source Growth 02/26/17 11:24 Aerobic Blood Culture - Preliminary Resulted Blood Peripheral NO GROWTH IN 2 DAYS 02/26/17 11:24 Anaerobic Blood Culture - Preliminary Resulted Blood Peripheral NO GROWTH IN 2 DAYS 02/26/17 03:20 Gram Stain - Final Complete Sputum Endotracheal 02/26/17 03:20 Sputum Culture - Final Complete Sputum Endotracheal NO GROWTH IN 48 HOURS. 02/26/17 02:15 Urine Culture - Final Complete Urine Catheterized Urine NO GROWTH IN 48 HOURS. 02/25/17 16:45 Influenza Types A,B Antigen (CHIOMA) - Final Complete Nasal Washing NEGATIVE FOR FLU A AND B ANTIGEN.... 02/25/17 15:24 Legionella Antigen - Final Complete Urine Clean Catch PRESUMPTIVE NEGATIVE FOR LEGIONELLA P... 02/25/17 15:24 Streptococcus pneumoniae Antigen (M - Final Complete Urine Clean Catch PRESUMPTIVE NEGATIVE FOR STREPTOCOCCU... Imaging Last Impressions Chest X-Ray 02/28/17 0600 Signed Impressions: Service Date/Time: Tuesday, February 28, 2017 03:48 - CONCLUSION: 1. Bilateral lower lobe atelectasis versus pneumonia. Bilateral pleural effusions are identified. There has been no significant change when compared to the prior exam. Israel Mathur MD Lower Extremity Ultrasound 02/27/17 0000 Signed Impressions: Service Date/Time: Monday, February 27, 2017 09:13 - CONCLUSION: Normal examination. Evaristo Massey MD Head CT 02/24/17 0000 Signed Impressions: Service Date/Time: Friday, February 24, 2017 18:59 - CONCLUSION: 1. No acute hemorrhage or mass effect. 2. Acute sinusitis in the left maxillary sinus. Raul Craig MD Cervical Spine MRI 02/24/17 0000 Signed Impressions: Service Date/Time: Friday, February 24, 2017 22:46 - CONCLUSION: 1. Small central protrusion at C4-5 without canal stenosis. 2. Small central protrusion at C3-4 with minimal extruded component. 3. Mild broad-based disc bulges at C5- 6 and C6-7 levels without canal stenosis. Neto Duenas MD Cervical Spine CT 02/24/17 0000 Signed Impressions: Service Date/Time: Friday, February 24, 2017 19:02 - CONCLUSION: 1. Moderate narrowing of left neural foramina at the C3-4 level secondary to hypertrophic change involving the facet joint. 2. Mild degenerative change at the C5-6 and C6-7 levels. 3. Mild disc osteophyte complex at C5-6 with mild narrowing of the neural foramina. Raul Craig MD Brain MRI 02/24/17 0000 Signed Impressions: Service Date/Time: Friday, February 24, 2017 22:46 - CONCLUSION: 1. No acute intracranial abnormality. 2. Left maxillary sinus disease. 3. No acute infarction. Neto Duenas MD Objective Remarks GENERAL: 56-year-old male, critically ill currently resting in bed in no acute distress SKIN: Warm and dry. Perfusing adequately HEAD: Atraumatic. Normocephalic. EYES: Pupils equal and round 3-4 mm and reactive bilaterally. No scleral icterus. No injection or drainage. ENT: Orotracheally intubated NECK: Trachea midline. Right IJ introducer in place clean dry and intact CARDIOVASCULAR: Tachycardic, IR. S1, S2. No S4. Faint 1/6 systolic murmur right upper sternal border RESPIRATORY: Few crackles appreciated bilaterally. Symmetrical excursion. GASTROINTESTINAL: Abdomen obese, protuberant, small umbilical reducible hernia. Bowel sounds are hypoactive no voluntary guarding. MUSCULOSKELETAL: Extremities with chronic 2+ pitting bilateral lower extremity edema up to knee. Chronic venous stasis/lymphedema NEUROLOGICAL: Cranial nerves II through XII grossly intact. Moves all 4 extremity spontaneously. Positive gag. Positive corneal reflex. A/P Assessment and Plan NEURO/PSYCH: Acute encephalopathy - secondary to hypercapnea and hypoxemia Peripheral neuropathy Allergic rhinitis Currently on Versed drip at 7 mg an hour and Fentanyl drip at 150 g an hour for sedation/analgesia while intubated Goal of RASS -2 Daily sedation vacation MRI brain 02/24 - no acute abnormality MRI C-spinesmall central protrusion at C3/C4 with mild extruded central spinal cord C4-C5 without canal stenosis with mild disc bulging C5/6 and C6/7 EEG 02/27 revealed moderate to severe encephalopathy. No epileptiform activity Questionable history of EtOH use/abuse. We'll start on thiamine/folate and multivitamin today Check Neurontin level. Previously on 600 mg 3 times a day. Currently on hold Holding Flonase twice a day/Zyrtec 5 mill grams daily. Resume as clinically indicated RESP: Acute hypoxemic and hypercapnic respiratory failure Acute COPD exacerbation History of asthma? Acute on chronic pulmonary artery hypertension Objective sleep apnea - noncompliant with CPAP History of tobacco abuse ACV 18/620/5/40 Ventilator bundle DuoNeb every 4 hours with albuterol every 2 hours when necessary Add Pulmicort 0.5/2 one inhalation twice a day Solumedrol 40 milligrams every q8 to be weaned over the next several days Chest x-ray today reveals bilateral pleural effusions/infiltrates. Stable from previous x-ray Last CVP was 8 Home medication regimen is Symbicort 160/4.5 to press twice a day, Spiriva 18 inhalation daily and Ventolin 4 times a day with duo nebs aerosols for breakthrough every 4 hours when necessary According to records, noncompliant with CPAP for SE[place] Airway edema noted particularly large arytenoid edema noted on intubation 02/26 with anterior airway. Intubated with Glidescope and 7.5 ETT. Cardiovascular: Shock, distributive/septic resolving Acute on chronic systolic heart failure EF 25-30% Moderate Moderate to severe TR NSTEMI Paroxysmal atrial fibrillation/flutter History of Hypertension Hyperlipidemia History of coronary artery disease Continue to wean Levophed and vasopressin to keep map above 65 Currently norepinephrine at 4 mcg/m PAC placed 02/26: Numbers at that time consistent with distributive shock (CI 2.8 , SVRI 1300). Currently cardiac index at 2.1. Cardiac output 5.2 and SVR 1250 this could be possibly be vaso constrictive/late sepsis versus effects of diuresis It is unclear whether pulmonary hypertension is secondary to left heart failure , or is it secondary to obstructive sleep apnea and COPD Unable to do transpulmonary gradient secondary to unable to wedge [place] Luisa catheter removed 02/[address] Butts Continue IV heparin for NSTEMI and A Fib Bumex 2 mg IV 1 02/27 and initiated Bumex infusion currently at 0.5 mg per hour Continue aspirin 81 mg daily Continue amiodarone drip at 0.5 mg a minute to transition to oral when okay with cardiology Troponin peaked at 27. Left heart catheterization when clinically stable Continue atorvastatin 80 mg daily at bedtime for dyslipidemia Unable to use beta charles secondary due to shock. On Lopressor 200 mg daily at home. Other blood pressures include lisinopril 40 mg daily and HCTZ 12.5 mg daily. On hold due to acute kidney injury Echo 02/27: - Systolic function was severely reduced 25% to 30%. Diffuse hypokinesis. -Aortic valve: moderate stenosis. Tricuspid valve: Moderate/severe regurg. SUZAN 70 mmHg GI: Constipation Glucerna 1.5 goal 55 cc an hour currently at 30 cc an hour Protonix daily Colace and Senokot twice a day for bowel regimen Add MiraLAX twice a day/lactulose 4 times a day. 1 dose mineral oil and Relistor today. Check KUB : BPH Holding doxazosin 8 mg daily light of hypotension Maintain Barrios for accurate I's and O's in a critically ill patient/Bumex drip FEN/RENAL: Acute kidney injury/ATN Hypokalemia Monitor intake and output. Monitor electrolytes KCl 40 mEq IV 1. Recheck after infusion Bumex 2 mg IV 1 on 02/27 and Bumex infusion at 0.5 mg per hour Discussed with cardiology. We'll decrease to 1 mg twice a day. Greater than 4 L urine output past 24 hours ID: Acute community acquired pneumonia Septic shock Zosyn/azithromycin. Single dose of vancomycin Microbiology: lood culture 2 setsno growth to date 02/25sputum - no growth 02/25urine Legionella and pneumococcal antigen negative 02/25influenza screen negative 02/26 - urine - no growth 02/26 - blood cultures 2 - no growth HEME: Normocytic anemia No indication for transfusion of blood products at this time Continue IV heparin drip for A. fib/nonsustained ENDO: Poorly controlled diabetes mellitus - hemoglobin A1c of 8.6 Insulin drip algorithm #4 currently at 7 units an hour At home on Lantus 35 units twice a day and Novulin R 15 units 3 times a day with meals MSK Chronic lymphedema Osteoporosis/osteoarthritis Resume Lac-Hydrin twice a day for lower extremity lymphedema 02/27 venous Dopplers showed no DVT Hold Risedronate 35 mg mg weekly for osteoporosis PROPH: Protonix 40 mg IV daily for stress ulcer prophylaxis. Heparin drip as per above ACCESS: Right subclavian central venous line placed 02/26 #4 Right IJ Cordis/day #3 Full code Critical Care: The total critical care time was 35 minutes. Time to perform other separately billable procedures was not included in the critical care time. Ramo Almaraz MD Mar 01, 2017 08:01
--- NOTE | 2017-03-01 08:29 | PD.CARD.PN ---
Subjective Subjective Remarks No clinical changes Objective Medications Administered Medications Medications (Trade) Dose Ordered Sig/Steve Route PRN Reason Start Time Stop Time Status Last Admin Dose Admin Sodium Chloride 2 ml 2 ml BID IV FLUSH 02/25/17 09:00 02/28/17 21:12 Azithromycin/ Sodium Chloride (Zithromax Inj/ NS 250 ml Inj) 250 ml @ 250 mls/hr Q24H IV 02/25/17 09:00 02/28/17 08:57 Guaifenesin (Mucinex Er) 600 mg BID PO 02/25/17 13:00 Hold 02/25/17 20:51 Furosemide (Lasix Inj) 40 mg BID@09,18 IV PUSH 02/25/17 18:00 Hold 02/25/17 17:44 Aspirin (Ecotrin Ec) 81 mg HS PO 02/25/17 21:00 02/28/17 21:13 Atorvastatin Calcium (Lipitor) 80 mg HS PO 02/25/17 21:00 02/28/17 21:13 Budesonide/ Formoterol Fumarate (Symbicort 160-4.5 Inh) 2 puff BID INH 02/25/17 21:00 Hold 02/25/17 20:51 Chlorhexidine Gluconate 15 ml 15 ml BID@08,20 MT 02/26/17 08:00 02/28/17 21:11 Sodium Chloride (NS 1000 ml Inj) 1,000 ml @ 84 mls/hr [id number] IV 02/26/17 01:18 Hold 02/26/17 01:18 Fentanyl Citrate (fentaNYL INJ) 50 mcg Q1H PRN IV PUSH Pain scale 6-10 &/or sedation 02/26/17 01:30 02/26/17 03:57 Pantoprazole Sodium (Protonix Inj) 40 mg DAILY IV 02/26/17 09:00 02/28/17 08:58 Docusate Sodium (Colace) 100 mg BID PO 02/26/17 09:00 02/28/17 21:12 Miscellaneous Information 1 [id number] XX 02/26/17 01:30 02/26/17 01:30 Chlorhexidine Gluconate 3 pack 3 pack Taper DAILY@04 TOP 02/26/17 04:00 02/22/18 03:59 03/01/17 03:00 Fentanyl Citrate 250 ml @ 0 mls/hr TITRATE IV 02/26/17 03:00 02/28/17 21:13 Midazolam HCl 100 ml @ 0 mls/hr TITRATE IV 02/26/17 03:00 03/01/17 05:43 Heparin Sodium/ Dextrose 250 ml @ 0 mls/hr TITRATE IV 02/26/17 03:00 03/01/17 01:57 Norepinephrine Bitartrate 250 ml @ 0 mls/hr TITRATE IV 02/26/17 08:30 02/26/17 20:43 Piperacillin Sod/ Tazobactam Sod 50 ml @ 200 mls/hr Q6H IV 02/26/17 10:00 03/01/17 04:13 Insulin Human Regular 100 units/ Sodium Chloride 100 ml @ 0 mls/hr TITRATE IV 02/26/17 14:30 02/28/17 17:54 Vasopressin 40 units/Dextrose 100 ml @ 0 mls/hr Q0M IV 02/26/17 15:00 02/27/17 22:03 Bumetanide (Bumex Inj) 100 ml @ 2 mls/hr CONTINUOUS IV 02/27/17 11:00 03/01/17 00:09 Methylprednisolone Sodium Succinate 40 mg 40 mg Q8HR IV PUSH 02/27/17 14:00 03/01/17 05:43 Amiodarone HCl/ Dextrose (Cordarone Inj/ D5W (Brandon) Inj) 250 ml @ 0 mls/hr CONTINUOUS IV 02/27/17 12:00 03/01/17 00:09 Sennosides (Senna Liq) 8.8 mg BID PO 02/28/17 21:00 02/28/17 21:12 Lactic Acid (Lac-Hydrin 12% Lotion) 1 applic BID TOPICAL 02/28/17 21:00 02/28/17 21:12 Protein (Beneprotein Powder) 1 pack TID G-TUBE 02/28/17 13:00 02/28/17 19:26 Artificial Tears (Tears Naturale Opth Soln) 1 drop Q8HR EACH EYE 02/28/17 14:00 03/01/17 05:43 Vital Signs / I&O Vital Signs Date Time Temp Pulse Resp B/P Pulse Ox O2 Delivery O2 Flow Rate FiO2 03/01/17 06:00 112 03/01/17 04:23 97 40 03/01/17 04:00 128 03/01/17 04:00 97.6 128 18 101/56 97 110/49 03/01/17 04:00 40 03/01/17 02:00 121 03/01/17 01:11 96 40 03/01/17 00:00 127 03/01/17 00:00 40 03/01/17 00:00 98.0 127 18 96/59 96 117/46 02/28/17 22:10 97 40 02/28/17 22:00 123 02/28/17 20:00 97.7 123 18 104/58 99 124/50 02/28/17 20:00 40 02/28/17 20:00 123 02/28/17 19:28 98 40 02/28/17 18:00 110 02/28/17 18:00 134 116/51 115/49 02/28/17 16:00 98.7 113 18 97/61 98 123/48 02/28/17 16:00 113 02/28/17 16:00 40 02/28/17 15:05 98 40 02/28/17 14:00 112 02/28/17 12:00 98.4 116 18 120/70 97 135/57 02/28/17 12:00 40 02/28/17 12:00 116 02/28/17 11:55 97 40 02/28/17 10:00 118 I/O 02/28/17 02/28/17 02/28/17 03/01/17 03/01/17 03/01/17 07:00 15:00 23:00 07:00 15:00 23:00 Intake Total 425 ml 982 ml 594 ml 820 ml Output Total 1375 ml 2030 ml 1350 ml 775 ml Balance -950 ml -1048 ml -756 ml 45 ml Intake IV Total 425 ml 982 ml 555 ml 605 ml Tube Feeding 9 ml 155 ml Other 30 ml 60 ml Output Urine Total 1375 ml 2000 ml 1350 ml 775 ml Gastric Drainage Total 30 ml # Bowel Movements 0 0 0 Physical Exam GENERAL: Intubated, sedated CARDIOVASCULAR: Regular rate and rhythm without murmurs, gallops, or rubs. RESPIRATORY: Clear to auscultation. Breath sounds equal bilaterally. No wheezes , rales, or rhonchi. GASTROINTESTINAL: Abdomen soft, non-tender, nondistended. Normal active bowel sounds MUSCULOSKELETAL: trace-1+ edema bilat. NEURO: INtubated, sedated Laboratory Laboratory Tests Test 02/28/17 02/28/17 03/01/17 16:20 21:58 03:35 Sodium Level 139 MEQ/L 140 MEQ/L 138 MEQ/L Potassium Level 3.1 MEQ/L 3.1 MEQ/L 3.1 MEQ/L Chloride Level 99 MEQ/L 99 MEQ/L 96 MEQ/L Carbon Dioxide Level 30.6 MEQ/L 29.4 MEQ/L 29.7 MEQ/L Anion Gap 9 MEQ/L 12 MEQ/L 12 MEQ/L Blood Urea Nitrogen 63 MG/DL 66 MG/DL 68 MG/DL Creatinine 2.99 MG/DL 2.86 MG/DL 3.31 MG/DL Estimat Glomerular Filtration 21 ML/MIN 22 ML/MIN 18 ML/MIN Rate Random Glucose 120 MG/DL 152 MG/DL 153 MG/DL Calcium Level 8.3 MG/DL 8.1 MG/DL 8.4 MG/DL Magnesium Level 2.2 MG/DL 2.1 MG/DL Total Bilirubin 0.4 MG/DL 0.5 MG/DL 0.5 MG/DL Aspartate Amino Transf 28 U/L 25 U/L 25 U/L (AST/SGOT) Alanine Aminotransferase 24 U/L 22 U/L 24 U/L (ALT/SGPT) Alkaline Phosphatase 61 U/L 61 U/L 61 U/L Total Protein 6.0 GM/DL 5.6 GM/DL 6.0 GM/DL Albumin 3.0 GM/DL 2.9 GM/DL 3.0 GM/DL Random Vancomycin Level 13.0 COMMENT Phosphorus Level 5.0 MG/DL Total Creatine Kinase 460 U/L Creatine Kinase MB 1.6 NG/ML Creatine Kinase MB % 0.3 % White Blood Count 6.4 TH/MM3 Red Blood Count 3.28 MIL/MM3 Hemoglobin 9.7 GM/DL Hematocrit 29.3 % Mean Corpuscular Volume 89.3 FL Mean Corpuscular Hemoglobin 29.5 PG Mean Corpuscular Hemoglobin 33.1 % Concent Red Cell Distribution Width 14.5 % Platelet Count 173 TH/MM3 Mean Platelet Volume 9.0 FL Neutrophils (%) (Auto) 91.9 % Lymphocytes (%) (Auto) 3.8 % Monocytes (%) (Auto) 4.2 % Eosinophils (%) (Auto) 0.0 % Basophils (%) (Auto) 0.1 % Neutrophils # (Auto) 5.8 TH/MM3 Lymphocytes # (Auto) 0.2 TH/MM3 Monocytes # (Auto) 0.3 TH/MM3 Eosinophils # (Auto) 0.0 TH/MM3 Basophils # (Auto) 0.0 TH/MM3 CBC Comment DIFF FINAL Differential Comment Activated Partial 41.2 SEC Thromboplast Time Imaging Last Impressions Chest X-Ray 02/28/17 0600 Signed Impressions: Service Date/Time: Tuesday, February 28, 2017 03:48 - CONCLUSION: 1. Bilateral lower lobe atelectasis versus pneumonia. Bilateral pleural effusions are identified. There has been no significant change when compared to the prior exam. Israel Mathur MD Lower Extremity Ultrasound 02/27/17 0000 Signed Impressions: Service Date/Time: Monday, February 27, 2017 09:13 - CONCLUSION: Normal examination. Evaristo Massey MD Head CT 02/24/17 0000 Signed Impressions: Service Date/Time: Friday, February 24, 2017 18:59 - CONCLUSION: 1. No acute hemorrhage or mass effect. 2. Acute sinusitis in the left maxillary sinus. Raul Craig MD Cervical Spine MRI 02/24/17 0000 Signed Impressions: Service Date/Time: Friday, February 24, 2017 22:46 - CONCLUSION: 1. Small central protrusion at C4-5 without canal stenosis. 2. Small central protrusion at C3-4 with minimal extruded component. 3. Mild broad-based disc bulges at C5- 6 and C6-7 levels without canal stenosis. Neto Duenas MD Cervical Spine CT 02/24/17 0000 Signed Impressions: Service Date/Time: Friday, February 24, 2017 19:02 - CONCLUSION: 1. Moderate narrowing of left neural foramina at the C3-4 level secondary to hypertrophic change involving the facet joint. 2. Mild degenerative change at the C5-6 and C6-7 levels. 3. Mild disc osteophyte complex at C5-6 with mild narrowing of the neural foramina. Raul Craig MD Brain MRI 02/24/17 0000 Signed Impressions: Service Date/Time: Friday, February 24, 2017 22:46 - CONCLUSION: 1. No acute intracranial abnormality. 2. Left maxillary sinus disease. 3. No acute infarction. Neto Duenas MD Assessment and Plan Problem List: (1) NSTEMI (non-ST elevated myocardial infarction) Assessment and Plan: Acute respiratory distress appears to be multifactorial. PNA, COPD, CHF CHF, acute systolic Cardiomyopathy - EF 25%. Severe PHTN NSTEMI ARF Sepsis At least moderate aortic stenosis. unable to tolerate BB, ERLIN due to hypotension. wean pressors as tolerated +i/o 4 L. start diuresis. follow Cr. severe PHTN. unable to obtain wedge pressure to calculate transpulmonary gradient. suspect primarily due to increased left sided pressure although intrinsic pulmonary disease may also have a component when off pressors, and after diuresis, we could consider Flolan challenge if transpulmonary gradient is > 12. NSTEMI - eventually will need LHC, but not stable now. hemodynamics are more suggestive of septic shock than cardiac based on CI and SVR. (2) Acute CHF Assessment and Plan: Cr. has bumped up again w/ diuresis, d/w CCM, they will cut back on diuretics. (3) Shock (4) Atrial fibrillation Assessment and Plan Dr. Butts will return tomorrow to resume care. Mohit Romero MD Mar 01, 2017 08:29
[2017-03-01] MEDS ORDERED: GLYCERIN ADULT 2 GM SUPP RECTAL PRN (08:30)
[2017-03-01] MEDS ORDERED: MINERAL OIL LIQUID 30 ML CUP PO ONE (08:30)
[2017-03-01] MEDS ORDERED: GLYCERIN ADULT 2 GM SUPP RECTAL ONE (08:30)
[2017-03-01] MEDS ORDERED: METHYLNALTREXONE BROMIDE 12 MG/0.6 ML VIAL SQ ONE (08:30)
[2017-03-01] MEDS: AZITHROMYCIN INJ 500 MG in SODIUM CHLOR 0.9% 250 ML INJ 250 ML IV SCH (08:58)
[2017-03-01] MEDS: PANTOPRAZOLE SODIUM 40 MG VIAL IV SCH (08:58)
[2017-03-01] MEDS: SENNOSIDES SYRUP 8.8 MG/5 ML CUP PO SCH ×2 (08:59→21:00)
[2017-03-01] MEDS: FOLIC ACID 1 MG TAB PO SCH (08:59)
[2017-03-01] MEDS: POLYETHYLENE GLYCOL 17 GM PKG PO SCH ×2 (08:59→21:00)
[2017-03-01] MEDS: MULTIVITAMIN TAB PO SCH (09:00)
[2017-03-01] MEDS: BENEPROTEIN POWDER 1 PACK G-TUBE SCH ×3 (09:00→17:38)
[2017-03-01] MEDS: SODIUM CHLORIDE 0.9% FLUSH 10 ML FLUSH IV FLUSH SCH ×2 (09:00→19:59)
[2017-03-01] MEDS ORDERED: POLYETHYLENE GLYCOL 17 GM PKG PO SCH (09:00)
[2017-03-01] MEDS: DOCUSATE SODIUM 100 MG CAP PO SCH ×2 (09:00→21:00)
[2017-03-01] MEDS: LACTIC ACID (AMMONIUM LACTATE) 12% LOTION 225 GM BTL TOPICAL SCH ×2 (09:08→22:10)
[2017-03-01] MEDS: RESP: BUDESONIDE 0.5 MG/2 ML NEB NEB SCH ×2 (09:18→20:49)
[2017-03-01] MEDS: LACTULOSE SYRUP 20 GM/30 ML CUP PO SCH ×4 (09:30→21:00)
[2017-03-01] MEDS: BUMETANIDE INJ 1 MG/4 ML VIAL IV PUSH SCH ×2 (09:30→17:37)
[2017-03-01] MEDS: CHLORHEXIDINE 0.12% (ORAL KIT) 15 ML CUP MT SCH ×2 (09:31→20:00)
[2017-03-01] MEDS: INSULIN REGULAR 100 UNITS/100 ML NS ALGORITHM 4 IV SCH ×2 (09:39)
--- NOTE | 2017-03-01 10:01 | RADRPT ---
EXAM DATE/TIME: 03/01/2017 08:26 [facility] COMPARISON: No previous studies available for comparison. INDICATIONS : Ileus. MEDICAL HISTORY : Myocardial infarction. Chronic obstructive pulmonary disease. SURGICAL HISTORY : Hernia repair. ENCOUNTER: Initial ACUITY: 1 day PAIN SCORE: Non-responsive. LOCATION: abdomen. FINDINGS: The bowel gas is nonspecific. There are no signs of obstruction or free air for technique. No defini te calcified stones are identified for technique. NG tube is present with tip in the stomach. Bibasil ar opacities are present may be due to a combination of consolidation and or pleural effusion. CONCLUSION: Nonspecific bowel gas. Travis Nguyen MD on March 01, 2017 at 9:59 Board Certified Radiologist. This report was verified electronically.
[2017-03-01] MEDS: THIAMINE INJ 100 MG in SODIUM CHLORIDE 0.9% INJ 100 ML IV SCH (10:58)
--- NOTE | 2017-03-01 15:12 | HHI.NPPN ---
Subjective General Problems: Edema, Hypotension Renal Failure: Acute Review of Systems General General Remarks unable to evaluate Objective Data Data 02/28/17 03/01/17 19:00 07:00 Intake Total 982 ml 1414 ml Output Total 2030 ml 2125 ml Balance -1048 ml -711 ml Intake IV Total 982 ml 1160 ml Tube Feeding 164 ml Other 90 ml Output Urine Total 2000 ml 2125 ml Gastric Drainage Total 30 ml # Bowel Movements 0 0 Vital Signs Date Time Temp Pulse Resp B/P Pulse Ox O2 Delivery O2 Flow Rate FiO2 03/01/17 14:58 96 40 03/01/17 11:43 97 40 03/01/17 09:23 97 40 03/01/17 08:00 40 03/01/17 06:00 112 03/01/17 04:23 97 40 03/01/17 04:00 128 03/01/17 04:00 97.6 128 18 101/56 97 110/49 03/01/17 04:00 40 03/01/17 02:00 121 03/01/17 01:11 96 40 03/01/17 00:00 127 03/01/17 00:00 40 03/01/17 00:00 98.0 127 18 96/59 96 117/46 02/28/17 22:10 97 40 02/28/17 22:00 123 02/28/17 20:00 97.7 123 18 104/58 99 124/50 02/28/17 20:00 40 02/28/17 20:00 123 02/28/17 19:28 98 40 02/28/17 18:00 110 02/28/17 18:00 134 116/51 115/49 02/28/17 16:00 98.7 113 18 97/61 98 123/48 02/28/17 16:00 113 02/28/17 16:00 40 -: 03/01/17 0335 03/01/17 0335 Tubes & Lines: Barrios Tubes & Lines Comment Kent Luisa catheter, Drip Comment insulin, heparin, versed, fentanyl, levo Physical Exam General Appearance: Well Developed, Well Nourished, Sleeping, Obese Throat Throat Exam: Oral Mucosa [place] & Moist Pulmonary Resp Exam: No Distress, Crackles, Decreased Bases, Diminished Breath Sounds Cardiology CV Exam: Regular, Normal Sinus Rhythm Gastrointestinal/Abdomen GI Exam: Soft, Non-Tender, Bowel Sounds Present, Distended Genitourinary Exam: Clear Urine Musculoskeletal MS Exam: Joints Intact, Normal Tone Integumentary Skin Exam: Clear, Warm, Dry, Intact Extremeties Extremities Exam: Pedal Pulses Palpable, Moderate Edema Neurologic Neuro Exam: Alert, Awake, Oriented, Speech Clear, Moving All Extremities Psychiatric Psych Exam: Appropriate Responses Assessment/Plan Discussed Condition With: Patient Assessment Summary: Hypotension, Diabetes Mellitus Problem List: (1) Acute renal failure superimposed on chronic kidney disease Plan: RAGHAVENDRA likely due to hypotension, renal hypoperfusion, may have progressed to ATN. renal function has remained stable overnight demonstrating fluid overload, off IVF, on Bumex 1 mg q 12 UOP Greater then 4 L K low replace Dr Hua Miner to follow (2) NSTEMI (non-ST elevated myocardial infarction) Plan: Cardiology following. Unstable for catheterization at this time he is on heparin gtt (3) CHF exacerbation Plan: worsened by acute DC. diuresis as tolerated, monitor fluid volume status (4) Pneumonia Plan: Currently on Rocephin, Zithromax, Zithromax (5) Type 2 diabetes mellitus Plan: on insulin drip Problem Qualifiers (1) CHF exacerbation: Qualified Code: I50.9 - Acute on chronic congestive heart failure, unspecified congestive heart failure type (2) Pneumonia: Qualified Code: J18.1 - Pneumonia of right lower lobe due to infectious organism Gage Boone MD Mar 01, 2017 15:11
[2017-03-01] MEDS: fentaNYL 2,500 MCG/NS 250 ML IV SCH (16:16)
[2017-03-01] MEDS: ASPIRIN EC 81 MG TABEC PO SCH (22:08)
[2017-03-01] MEDS: METOCLOPRAMIDE HCL 10 MG/2 ML VIAL IV PUSH SCH (22:09)
[2017-03-01] MEDS: ATORVASTATIN 80 MG TAB PO SCH (22:14)
[2017-03-02] VITALS (20 sets, daily range): BP systolic 117–146; BP diastolic 47–61; PULSE 69–90; RESP 18; TEMP 98.2–98.8; O2SAT 94–100
[2017-03-02] MEDS: INSULIN REGULAR 100 UNITS/100 ML NS ALGORITHM 4 IV SCH ×4 (00:30→15:51)
[2017-03-02] MEDS: HEPARIN-D5W INJ 250 ML IV SCH (00:44)
[2017-03-02] MEDS: RESP: ALBUTEROL 2.5 MG/IPRATROPIUM 0.5 MG NEB (SCH) INH ×6 (03:18→23:21)
[2017-03-02] MEDS: CHLORHEXIDINE GLUCONATE 2 % 1 PACK (2 CLOTHS) TOP SCH (04:00)
[2017-03-02 04:15] LABS: AUTOMATED NEUTROPHIL # 6.3 TH/MM3 (1.8-7.7); BASOPHIL % 0.1 % (0.0-2.0); EOSINOPHIL % 0.1 % (0.0-4.0); HEMATOCRIT 28.2 % (39.0-51.0); LYMPH % 3.7 % (9.0-44.0); LYMPHOCYTE # 0.3 TH/MM3 (1.0-4.8); MEAN CELL VOLUME 89.3 FL (80.0-100.0); MEAN CORPUSCULAR HGB CONC 33.6 % (32.0-36.0); NEUT % 92.1 % (16.0-70.0); PLATELET COUNT 178 TH/MM3 (150-450); RED BLOOD COUNT 3.15 MIL/MM3 (4.50-5.90); RED CELL DISTRIBUTION WIDTH 14.3 % (11.6-17.2); WHITE BLOOD COUNT 6.8 TH/MM3 (4.0-11.0)
[2017-03-02 04:17] LABS: HEMO FLAGS AUTO DIFF
[2017-03-02] MEDS: PIPERACIL-TAZO 3.375 GM PREMIX 50 ML IV SCH ×4 (04:19→20:59)
[2017-03-02] MEDS: fentaNYL 2,500 MCG/NS 250 ML IV SCH ×2 (04:21→21:07)
[2017-03-02 04:25] LABS: APTT (PATIENT) 41.2 SEC (24.3-30.1)
[2017-03-02 05:03] LABS: SCAN/DIFF AUTO DIFF CONFIRMED
[2017-03-02] MEDS: AMIODARONE INJ 450 MG in D5W (EXCEL BAG) 241 ML IV SCH ×2 (05:12→21:17)
[2017-03-02 05:22] LABS: ALKALINE PHOSPHATASE 55 U/L (45-117); ALT (GPT) 21 U/L (12-78); ANION GAP 12 MEQ/L (5-15); AST (GOT) 15 U/L (15-37); BICARBONATE 29.6 MEQ/L (21.0-32.0); BLOOD UREA NITROGEN 84 MG/DL (7-18); CHLORIDE 99 MEQ/L (98-107); GLOMERULAR FILTRATION RATE 17 ML/MIN (>89); MAGNESIUM 2.4 MG/DL (1.5-2.5); POTASSIUM 3.2 MEQ/L (3.5-5.1); SODIUM (NA) 141 MEQ/L (136-145); TOTAL BILIRUBIN ADULT 0.3 MG/DL (0.2-1.0)
[2017-03-02] MEDS: METOCLOPRAMIDE HCL 10 MG/2 ML VIAL IV PUSH SCH ×3 (06:14→21:00)
[2017-03-02] MEDS: methylPREDNISolone SOD SUCC 125 MG/2 ML VIAL IV PUSH SCH ×3 (06:14→21:00)
[2017-03-02] MEDS: ARTIFICIAL TEARS OPTH SOLN 15 ML BTL EACH EYE SCH ×3 (06:14→20:59)
--- NOTE | 2017-03-02 06:17 | RADRPT ---
EXAM DATE/TIME: 03/02/2017 03:58 [facility] COMPARISON: CHEST SINGLE AP, February 28, 2017, 3:48. INDICATIONS : Shortness of breath. possible pulmonary disease. MEDICAL HISTORY : None. SURGICAL HISTORY : None. ENCOUNTER: Subsequent ACUITY: 1 week PAIN SCORE: Non-responsive. LOCATION: Bilateral chest FINDINGS: A single view of the chest demonstrates the endotracheal tube, nasogastric and right subclavian centr al line, all in good position. Bilateral pleural effusions right greater left. No visible pneumothora x.. Osseous structures are intact. CONCLUSION: Tubes and catheters in good position. Large bilateral pleural effusions right greater left are unchan ged. Jong Garcia MD on March 02, 2017 at 6:14 Board Certified Radiologist. This report was verified electronically.
--- NOTE | 2017-03-02 06:18 | RADRPT ---
EXAM DATE/TIME: 03/02/2017 04:03 [facility] COMPARISON: ABDOMEN KUB ONLY, March 01, 2017, 8:26. INDICATIONS : Abdominal distention. MEDICAL HISTORY : Myocardial infarction. Chronic obstructive pulmonary disease. SURGICAL HISTORY : Hernia repair ENCOUNTER: Subsequent ACUITY: 1 week PAIN SCORE: Non-responsive. LOCATION: Bilateral Abdomen FINDINGS: Supine view of the abdomen was performed. The abdominal bowel gas pattern is normal. No abnormal ma sses, calcifications, or organomegaly is seen. The osseous structures are unremarkable. CONCLUSION: Normal examination. The NG tube is entering the proximal stomach. Jong Garcia MD on March 02, 2017 at 6:16 Board Certified Radiologist. This report was verified electronically.
[2017-03-02] MEDS: MIDAZOLAM 100 MG/NS 100 ML DRIP Premix IV SCH ×2 (08:18→21:28)
[2017-03-02] MEDS: AZITHROMYCIN INJ 500 MG in SODIUM CHLOR 0.9% 250 ML INJ 250 ML IV SCH (08:31)
[2017-03-02] MEDS: MULTIVITAMIN TAB PO SCH (08:32)
[2017-03-02] MEDS: FOLIC ACID 1 MG TAB PO SCH (08:32)
[2017-03-02] MEDS: CHLORHEXIDINE 0.12% (ORAL KIT) 15 ML CUP MT SCH ×2 (08:32→20:57)
[2017-03-02] MEDS: DOCUSATE SODIUM 100 MG CAP PO SCH ×2 (08:39→20:45)
[2017-03-02] MEDS: SENNOSIDES SYRUP 8.8 MG/5 ML CUP PO SCH ×2 (08:39→20:57)
[2017-03-02] MEDS: LACTULOSE SYRUP 20 GM/30 ML CUP PO SCH (08:39)
[2017-03-02] MEDS: POLYETHYLENE GLYCOL 17 GM PKG PO SCH (08:39)
[2017-03-02] MEDS: BENEPROTEIN POWDER 1 PACK G-TUBE SCH ×4 (09:00→18:09)
[2017-03-02] MEDS: RESP: BUDESONIDE 0.5 MG/2 ML NEB NEB SCH ×2 (09:05→19:50)
[2017-03-02] MEDS: SODIUM CHLORIDE 0.9% FLUSH 10 ML FLUSH IV FLUSH SCH ×2 (10:29→20:44)
[2017-03-02] MEDS: THIAMINE INJ 100 MG in SODIUM CHLORIDE 0.9% INJ 100 ML IV SCH (10:29)
[2017-03-02] MEDS: PANTOPRAZOLE SODIUM 40 MG VIAL IV SCH (10:30)
[2017-03-02] MEDS ORDERED: POTASSIUM CHLOR 40 MEQ PREMIX 100 ML IV ONE (10:30)
--- NOTE | 2017-03-02 10:30 | HHI.CCPN ---
Subjective Remarks/Hospital Course Per overnight digital research analyst 02/26/17 Responded to [facility] overhead. Upon arrival to F pod discovered that patient was awake and normotensive, with sinus tachycardia in the 150s in severe respiratory distress. He had not lost a pulse but [facility] had been called to facilitate rapid evaluation and stabilization. 76-year-old male with past history of obesity, COPD, obstructive sleep apnea on CPAP, CHF, peripheral neuropathy, hypertension, diabetes, hyperlipidemia, obesity who receives medical care at the [facility]. He presented to [facility] emergency department 02/25/17 with falls and difficulty with balance. He also reported that he was having shortness of breath and cough for several days. Was not febrile in hospital. On the day of admission he had some chest pain across his chest. Troponins negative. He was treated for pneumonia with Rocephin and azithromycin. He was placed on steroids Solu-Medrol 60 mg IV every 6 hours. Received Lasix at about 6 PM on due to concern for volume overload. Echo had poor images but systolic function appeared reduced. Tonight he developed acutely worsening shortness of breath and Dr. Galicia presented to the emergency Department to evaluate him where he was found to be tachypneic and wheezing. He was given a neb and preparations were being made to place him on BiPAP. He was becoming less responsive and was looking upward when I arrived and respiratory was placing on Bipap. He was in extremis and it was felt he would need emergent intubation prior to transfer to ICU. He denied chest pain. He was preoxygenated on Bipap, did seem to become more alert and nodded that he agreed with proceeding with intubation. He was intubated in F pod and then transferred to [facility]. Upon arrival to [facility] he was in atrial fibrillation in the 130s. SBP was 90/50 then 64/40. Central line was placed and he converted to sinus tachycadia in 101-130s. Subsequently he was normotensive with MAP 71. He was also sedated with propofol during the hypotension, improved after transition to fentanyl drip. 02/27: PA catheter placed yesterday. PA catheter readings are more consistent distributive/septic shock with high cardiac output with low SVR. CO 10-11. CI 2.8 SVRI [id number]. D/W Dr Butts. Will hold off Flolan challenge at this time for high PA pressure- mean 59-60. After weaning pressors, PA mean pressure is about 40. Patient's hemodynamics have improved, vasopressin is off now, Levophed is at 4 mics per minute. Give Bumex 2 mg 1 on Bumex drip at 2 mg per hour per Dr. Miner 02/28: Afebrile. Arousable on the vent and moves 4 extremities spontaneously but doesn't follow commands. No bowel movement since admission. Currently nothing by mouth. Remains on low-dose vasopressors including vasopressin and Levophed 03/01: Wendell Luisa catheter removed yesterday. Adequate urine output on Bumex drip at 1 mg an hour. Afebrile. Currently replaced potassium. Subjective 03/02: Afebrile. Bumex drip has been discontinued. Currently replaced potassium. Positive BM overnight. We'll attempt spontaneous breathing trials today. Objective Vital Signs Date Time Temp Pulse Resp B/P Pulse Ox O2 Delivery O2 Flow Rate FiO2 03/02/17 09:08 95 40 03/02/17 06:00 70 03/02/17 04:00 98.2 18 121/58 132/47 Intake and Output 03/01/17 03/01/17 03/02/17 08:00 16:00 00:00 Intake Total 820 ml 1086 ml 868 ml Output Total 775 ml 850 ml 1325 ml Balance 45 ml 236 ml -457 ml Result Diagram: 03/02/17 0325 03/02/17 0325 Other Results Microbiology Date/Time Procedure Status Source Growth 02/26/17 11:24 Aerobic Blood Culture - Preliminary Resulted Blood Peripheral NO GROWTH IN 3 DAYS 02/26/17 11:24 Anaerobic Blood Culture - Preliminary Resulted Blood Peripheral NO GROWTH IN 3 DAYS 02/26/17 03:20 Gram Stain - Final Complete Sputum Endotracheal 02/26/17 03:20 Sputum Culture - Final Complete Sputum Endotracheal NO GROWTH IN 48 HOURS. 02/26/17 02:15 Urine Culture - Final Complete Urine Catheterized Urine NO GROWTH IN 48 HOURS. 02/25/17 16:45 Influenza Types A,B Antigen (CHIOMA) - Final Complete Nasal Washing NEGATIVE FOR FLU A AND B ANTIGEN.... 02/25/17 15:24 Legionella Antigen - Final Complete Urine Clean Catch PRESUMPTIVE NEGATIVE FOR LEGIONELLA P... 02/25/17 15:24 Streptococcus pneumoniae Antigen (M - Final Complete Urine Clean Catch PRESUMPTIVE NEGATIVE FOR STREPTOCOCCU... Imaging Last Impressions Chest X-Ray 03/02/17 0600 Signed Impressions: Service Date/Time: Thursday, March 02, 2017 03:58 - CONCLUSION: Tubes and catheters in good position. Large bilateral pleural effusions right greater left are unchanged. Jong Garcia MD Abdomen X-Ray 03/02/17 0600 Signed Impressions: Service Date/Time: Thursday, March 02, 2017 04:03 - CONCLUSION: Normal examination. The NG tube is entering the proximal stomach. Jong Garcia MD Lower Extremity Ultrasound 02/27/17 0000 Signed Impressions: Service Date/Time: Monday, February 27, 2017 09:13 - CONCLUSION: Normal examination. Evaristo Massey MD Head CT 02/24/17 0000 Signed Impressions: Service Date/Time: Friday, February 24, 2017 18:59 - CONCLUSION: 1. No acute hemorrhage or mass effect. 2. Acute sinusitis in the left maxillary sinus. Raul Craig MD Cervical Spine MRI 02/24/17 0000 Signed Impressions: Service Date/Time: Friday, February 24, 2017 22:46 - CONCLUSION: 1. Small central protrusion at C4-5 without canal stenosis. 2. Small central protrusion at C3-4 with minimal extruded component. 3. Mild broad-based disc bulges at C5- 6 and C6-7 levels without canal stenosis. Neto Duenas MD Cervical Spine CT 02/24/17 0000 Signed Impressions: Service Date/Time: Friday, February 24, 2017 19:02 - CONCLUSION: 1. Moderate narrowing of left neural foramina at the C3-4 level secondary to hypertrophic change involving the facet joint. 2. Mild degenerative change at the C5-6 and C6-7 levels. 3. Mild disc osteophyte complex at C5-6 with mild narrowing of the neural foramina. Raul Craig MD Brain MRI 02/24/17 0000 Signed Impressions: Service Date/Time: Friday, February 24, 2017 22:46 - CONCLUSION: 1. No acute intracranial abnormality. 2. Left maxillary sinus disease. 3. No acute infarction. Neto Duenas MD Objective Remarks GENERAL: 56-year-old male, critically ill currently resting in bed in no acute distress SKIN: Warm and dry. Perfusing adequately HEAD: Atraumatic. Normocephalic. EYES: Pupils equal and round 3-4 mm and reactive bilaterally. No scleral icterus. No injection or drainage. ENT: Orotracheally intubated NECK: Trachea midline. Right IJ introducer in place clean dry and intact CARDIOVASCULAR: Tachycardic, IR. S1, S2. No S4. Faint 1/6 systolic murmur right upper sternal border RESPIRATORY: Few crackles appreciated bilaterally. Symmetrical excursion. GASTROINTESTINAL: Abdomen obese, protuberant, small umbilical reducible hernia. Bowel sounds are hypoactive no voluntary guarding. MUSCULOSKELETAL: Extremities with chronic 2+ pitting bilateral lower extremity edema up to knee. Chronic venous stasis/lymphedema NEUROLOGICAL: Cranial nerves II through XII grossly intact. Moves all 4 extremity spontaneously. Positive gag. Positive corneal reflex. A/P Assessment and Plan NEURO/PSYCH: Acute encephalopathy - secondary to hypercapnea and hypoxemia Peripheral neuropathy Allergic rhinitis Currently on Versed drip at 2 mg an hour and Fentanyl drip at 100 g an hour for sedation/analgesia while intubated Goal of RASS -2 Daily sedation vacation MRI brain 02/24 - no acute abnormality MRI C-spinesmall central protrusion at C3/C4 with mild extruded central spinal cord C4-C5 without canal stenosis with mild disc bulging C5/6 and C6/7 EEG 02/27 revealed moderate to severe encephalopathy. No epileptiform activity Questionable history of EtOH use/abuse. We'll continue on thiamine/folate and multivitamin today Check Neurontin level. Previously on 600 mg 3 times a day. Currently on hold Holding Flonase twice a day/Zyrtec 5 mill grams daily. Resume as clinically indicated RESP: Acute hypoxemic and hypercapnic respiratory failure Acute COPD exacerbation History of asthma? Acute on chronic pulmonary artery hypertension Objective sleep apnea - noncompliant with CPAP History of tobacco abuse ACV 18/620/5/40 Ventilator bundle DuoNeb every 4 hours with albuterol every 2 hours when necessary Add Pulmicort 0.5/2 one inhalation twice a day Solumedrol 40 milligrams every q12 to be weaned over the next several days Chest x-ray today reveals bilateral pleural effusions/infiltrates. Stable from previous x-ray Home medication regimen is Symbicort 160/4.5 to press twice a day, Spiriva 18 inhalation daily and Ventolin 4 times a day with duo nebs aerosols for breakthrough every 4 hours when necessary According to records, noncompliant with CPAP for SEBASTIAN Airway edema noted particularly large arytenoid edema noted on intubation 02/26 with anterior airway. Intubated with Glidescope and 7.5 ETT. Cardiovascular: Shock, distributive/septic resolving Acute on chronic systolic heart failure EF 25-30% Moderate Moderate to severe TR NSTEMI Paroxysmal atrial fibrillation/flutter History of Hypertension Hyperlipidemia History of coronary artery disease Continue to wean Levophed and vasopressin to keep map above 65 Currently norepinephrine at 4 mcg/m PAC placed 02/26: Numbers at that time consistent with distributive shock (CI 2.8 , SVRI 1300). Currently cardiac index at 2.1. Cardiac output 5.2 and SVR 1250 this could be possibly be vaso constrictive/late sepsis versus effects of diuresis It is unclear whether pulmonary hypertension is secondary to left heart failure , or is it secondary to obstructive sleep apnea and COPD Unable to do transpulmonary gradient secondary to unable to wedge Wendell Luisa catheter removed 02/[address] Butts Continue IV heparin for NSTEMI and A Fib Bumex 2 mg IV 1 02/27 and initiated Bumex infusion currently at 0.5 mg per hour Continue aspirin 81 mg daily Continue amiodarone drip at 0.5 mg a minute to transition to oral when okay with cardiology Troponin peaked at 27. Left heart catheterization when clinically stable Continue atorvastatin 80 mg daily at bedtime for dyslipidemia Unable to use beta charles secondary due to shock. On Lopressor 200 mg daily at home. Other blood pressures include lisinopril 40 mg daily and HCTZ 12.5 mg daily. On hold due to acute kidney injury Echo 02/27: - Systolic function was severely reduced 25% to 30%. Diffuse hypokinesis. -Aortic valve: moderate stenosis. Tricuspid valve: Moderate/severe regurgitation. SUZAN 70 mmHg GI: Constipation Glucerna 1.5 goal 55 cc an hour currently at 30 cc an hour. Noted held overnight. KUB shows normal bowel gas pattern Protonix daily Colace and Senokot twice a day for bowel regimen 3 BMs overnight : BPH Holding doxazosin 8 mg daily light of hypotension Maintain Barrios for accurate I's and O's in a critically ill patient/Bumex drip FEN/RENAL: Acute kidney injury/ATN Hypokalemia Monitor intake and output. Monitor electrolytes KCl 40 mEq IV 1. Recheck after infusion Bumex discontinued O>>I past 24 hours ID: Acute community acquired pneumonia Septic shock Zosyn/azithromycin. Single dose of vancomycin Microbiology: lood culture 2 setsno growth to date 02/25sputum - no growth 02/25urine Legionella and pneumococcal antigen negative 02/25influenza screen negative 02/26 - urine - no growth 02/26 - blood cultures 2 - no growth HEME: Normocytic anemia No indication for transfusion of blood products at this time Continue IV heparin drip for A. fib/nonsustained ENDO: Poorly controlled diabetes mellitus - hemoglobin A1c of 8.6 Insulin drip algorithm #4 currently at 7 units an hour At home on Lantus 35 units twice a day and Novulin R 15 units 3 times a day with meals MSK Chronic lymphedema Osteoporosis/osteoarthritis Resume Lac-Hydrin twice a day for lower extremity lymphedema 02/27 venous Dopplers showed no DVT Hold Risedronate 35 mg mg weekly for osteoporosis PROPH: Protonix 40 mg IV daily for stress ulcer prophylaxis. Heparin drip as per above ACCESS: Right subclavian central venous line placed 02/26 #5 Right IJ Cordis/day #4 to be discontinued today Full code Critical Care: The total critical care time was 35 minutes. Time to perform other separately billable procedures was not included in the critical care time. Ramo Almaraz MD Mar 02, 2017 10:30
--- NOTE | 2017-03-02 12:12 | RADRPT ---
EXAM DATE/TIME: 03/02/2017 11:42 [place] COMPARISON: CT PULMONARY ANGIOGRAM, October 22, 2015, 15:26. INDICATIONS : Shortness of breath; evaluate for pleural effusion. RADIATION DOSE: 8.96 CTDIvol (mGy) MEDICAL HISTORY : Congestive hearrt failure. Hypertension. Diabetes mellitus type 2. SURGICAL HISTORY : Hernia ENCOUNTER: Initial ACUITY: 1 day PAIN SCALE: LOCATION: TECHNIQUE: Volumetric scanning of the chest was performed. Using automated exposure control and adjustment of t he mA and/or kV according to patient size, radiation dose was kept as low as reasonably achievable to obtain optimal diagnostic quality images. FINDINGS: There is slight anterior wedging of T8 vertebrae most likely chronic. Large bilateral pleural ef fusions are present bibasilar consolidation and/or compressive collapse. Coronary artery calcificatio ns are seen typically seen with CAD and need to be evaluated clinically. CONCLUSION: Large bilateral pleural effusions and bibasilar consolidation and/or compressive collapse not present on the study from 2014. Travis Nguyen MD on March 02, 2017 at 12:07 Board Certified Radiologist. This report was verified electronically.
--- NOTE | 2017-03-02 12:23 | HHI.NPPN ---
Subjective General Problems: Edema, Hypotension Renal Failure: Acute Interval History Remains intubated, sedated. Off pressors. Renal function is worse. (Katina Park) Review of Systems General General Remarks unable to evaluate (Katina Park) Objective Data Data 03/01/17 03/02/17 19:00 07:00 Intake Total 1086 ml 1620 ml Output Total 850 ml 2225 ml Balance 236 ml -605 ml Intake IV Total 686 ml 1155 ml Tube Feeding 280 ml 345 ml Other 120 ml 120 ml Output Urine Total 850 ml 1875 ml Gastric Drainage Total 350 ml # Bowel Movements 0 3 Vital Signs Date Time Temp Pulse Resp B/P Pulse Ox O2 Delivery O2 Flow Rate FiO2 03/02/17 12:01 96 40 03/02/17 09:08 95 40 03/02/17 06:00 70 03/02/17 04:35 96 40 03/02/17 04:00 72 03/02/17 04:00 40 03/02/17 04:00 98.2 72 18 121/58 94 132/47 03/02/17 02:00 71 03/02/17 01:25 94 40 03/02/17 00:00 40 03/02/17 00:00 72 03/02/17 00:00 98.2 72 18 118/59 96 141/50 03/01/17 22:26 98 40 03/01/17 22:00 74 03/01/17 20:45 97 40 03/01/17 20:00 97.6 7 18 111/54 96 126/44 03/01/17 20:00 73 03/01/17 20:00 40 03/01/17 18:00 75 03/01/17 16:00 151 03/01/17 16:00 98.5 151 18 136/78 95 146/71 03/01/17 16:00 40 03/01/17 14:58 96 40 03/01/17 14:00 127 (Katina Park) -: 03/02/17 0325 03/02/17 0325 Imaging Last 72 hours Impressions Chest X-Ray 03/02/17 0600 Signed Impressions: Service Date/Time: Thursday, March 02, 2017 03:58 - CONCLUSION: Tubes and catheters in good position. Large bilateral pleural effusions right greater left are unchanged. Jong Garcia MD Abdomen X-Ray 03/02/17 0600 Signed Impressions: Service Date/Time: Thursday, March 02, 2017 04:03 - CONCLUSION: Normal examination. The NG tube is entering the proximal stomach. Jong Garcia MD Abdomen X-Ray 03/01/17 0000 Signed Impressions: Service Date/Time: Wednesday, March 01, 2017 08:26 - CONCLUSION: Nonspecific bowel gas. Travis Nguyen MD Chest X-Ray 02/28/17 0600 Signed Impressions: Service Date/Time: Tuesday, February 28, 2017 03:48 - CONCLUSION: 1. Bilateral lower lobe atelectasis versus pneumonia. Bilateral pleural effusions are identified. There has been no significant change when compared to the prior exam. Israel Mathur MD Tubes & Lines: Barrios Tubes & Lines Comment [place] Luisa catheter, Drip Comment insulin, heparin, versed, fentanyl, amiodarone (Katina Park) Physical Exam General Appearance: Well Developed, Well Nourished, Sleeping, Obese Appearance Remarks intubated, sedated but opens eyes and shakes to stimulation (Katina Park BH[facility] SOTOP) Throat Throat Exam: Oral Mucosa Ferron & Moist (Katina ParkP) Pulmonary Resp Exam: No Distress, Crackles, Decreased Bases, Diminished Breath Sounds ( Katina Park B. CASE PICKER) Cardiology CV Exam: Good Perfusion, Irregular CV Remarks rate controlled (Katina Park [facility] SOTOP) Gastrointestinal/Abdomen GI Exam: Soft, Non-Tender, Bowel Sounds Present, Distended (Katina Park B. CASE PICKER) Genitourinary Exam: Clear Urine (Katina Park [facility] CASE PICKER) Musculoskeletal MS Exam: Joints Intact, Normal Tone, Unable to Ambulate (Katina ParkP) Integumentary Skin Exam: Clear, Warm, Dry, Intact (Katina ParkP) Extremeties Extremities Exam: Pedal Pulses Palpable, Moderate Edema (Katina ParkP) Neurologic Neuro Exam: Moving All Extremities, Unresponsive, Sedated (XavierKatina lorenzo) VTE Prophylaxis Meds: Heparin (Katina Park) Assessment/Plan Assessment Summary: Hypotension, Diabetes Mellitus Problem List: (1) Acute renal failure superimposed on chronic kidney disease Plan: RAGHAVENDRA likely due to hypotension, renal hypoperfusion, may have progressed to ATN. renal function has worsened off Bumex gtt, was on intermittent BID dosage due to worsening renal function, hold diuretics and monitor response he is non oliguric K was replaced edema improving avoid nephrotoxins, he is not on IVF pressors if needed to maintain adequate MAP, he is not requiring them as of this morning daily renal panel (2) NSTEMI (non-ST elevated myocardial infarction) Plan: Cardiology following. Unstable for catheterization at this time he is on heparin gtt (3) CHF exacerbation Plan: worsened by acute CA. monitor fluid volume status , diuresis as needed/tolerated (4) Pneumonia Plan: Currently on prednisone, zosyn, and Zithromax continue vent management, on 40% Fi02 (5) Type 2 diabetes mellitus Plan: on insulin drip blood sugar has improved likely to be converted to intermittent insulin therapy (Katina Park) Plan patient was seen and examined. Non oliguric. Off of diuretics. Dose medications appropriate to his renal function. (Pablo Miner MD) Problem Qualifiers (1) CHF exacerbation: Qualified Code: I50.9 - Acute on chronic congestive heart failure, unspecified congestive heart failure type (2) Pneumonia: Qualified Code: J18.1 - Pneumonia of right lower lobe due to infectious organism Katina Park Mar 02, 2017 12:23 Pablo Miner MD Mar 03, 2017 11:19
[2017-03-02] MEDS: LACTIC ACID (AMMONIUM LACTATE) 12% LOTION 225 GM BTL TOPICAL SCH ×2 (13:10→20:59)
[2017-03-02] MEDS: INSULIN DETEMIR 100 UNITS/ML VIAL SQ SCH ×2 (13:32→20:59)
[2017-03-02] MEDS ORDERED: HEPARIN-NS/PF INJ 500 ML IART SCH (14:07)
--- NOTE | 2017-03-02 14:25 | PD.CARD.PN ---
Subjective Subjective Remarks intubated sedated at bedside SBP improved Objective Medications Active Medications Heparin Sodium/ Sodium Chloride (Heparin-NS/Pf Inj) 500 ml @ 0 mls/hr Q0M IART; Start 03/02/17 at 14:07; Status UNV Insulin Detemir 40 units 40 units Q12HR SQ Last administered on 03/02/17 13:32 ; Admin Dose 40 UNITS; Start 03/02/17 at 11:00 Metoclopramide HCl 5 mg 5 mg Q8HR IV PUSH Last administered on 03/02/17 13:32; Admin Dose 5 MG; Start 03/01/17 at 22:00 Potassium Chloride (KCl 40 Meq Premix Inj) 100 ml @ 25 mls/hr BOLUS ONCE IV Last administered on 03/02/17 10:29; Admin Dose 25 MLS/HR; Start 03/02/17 at 10 :30; Stop 03/02/17 at 14:29 Vital Signs / I&O Vital Signs Date Time Temp Pulse Resp B/P Pulse Ox O2 Delivery O2 Flow Rate FiO2 03/02/17 12:01 96 40 03/02/17 11:20 100 50 03/02/17 09:08 95 40 03/02/17 06:00 70 03/02/17 04:35 96 40 03/02/17 04:00 72 03/02/17 04:00 40 03/02/17 04:00 98.2 72 18 121/58 94 132/47 03/02/17 02:00 71 03/02/17 01:25 94 40 03/02/17 00:00 40 03/02/17 00:00 72 03/02/17 00:00 98.2 72 18 118/59 96 141/50 03/01/17 22:26 98 40 03/01/17 22:00 74 03/01/17 20:45 97 40 03/01/17 20:00 97.6 7 18 111/54 96 126/44 03/01/17 20:00 73 03/01/17 20:00 40 03/01/17 18:00 75 03/01/17 16:00 151 03/01/17 16:00 98.5 151 18 136/78 95 146/71 03/01/17 16:00 40 03/01/17 14:58 96 40 I/O 03/01/17 03/01/17 03/01/17 03/02/17 03/02/17 03/02/17 07:00 15:00 23:00 07:00 15:00 23:00 Intake Total 820 ml 1086 ml 868 ml 752 ml Output Total 775 ml 850 ml 1325 ml 900 ml Balance 45 ml 236 ml -457 ml -148 ml Intake IV Total 605 ml 686 ml 542 ml 613 ml Tube Feeding 155 ml 280 ml 266 ml 79 ml Other 60 ml 120 ml 60 ml 60 ml Output Urine Total 775 ml 850 ml 975 ml 900 ml Gastric Drainage Total 350 ml # Bowel Movements 0 0 2 1 Physical Exam CARDIOVASCULAR: irregular rhythm RESPIRATORY: Rhonci GASTROINTESTINAL: distended. Laboratory Laboratory Tests Test 03/01/17 03/02/17 15:07 03:25 Potassium Level 3.4 MEQ/L 3.2 MEQ/L White Blood Count 6.8 TH/MM3 Red Blood Count 3.15 MIL/MM3 Hemoglobin 9.5 GM/DL Hematocrit 28.2 % Mean Corpuscular Volume 89.3 FL Mean Corpuscular Hemoglobin 30.0 PG Mean Corpuscular Hemoglobin 33.6 % Concent Red Cell Distribution Width 14.3 % Platelet Count 178 TH/MM3 Mean Platelet Volume 9.3 FL Neutrophils (%) (Auto) 92.1 % Lymphocytes (%) (Auto) 3.7 % Monocytes (%) (Auto) 4.0 % Eosinophils (%) (Auto) 0.1 % Basophils (%) (Auto) 0.1 % Neutrophils # (Auto) 6.3 TH/MM3 Lymphocytes # (Auto) 0.3 TH/MM3 Monocytes # (Auto) 0.3 TH/MM3 Eosinophils # (Auto) 0.0 TH/MM3 Basophils # (Auto) 0.0 TH/MM3 CBC Comment AUTO DIFF Differential Comment AUTO DIFF CONFIRMED Activated Partial 41.2 SEC Thromboplast Time Sodium Level 141 MEQ/L Chloride Level 99 MEQ/L Carbon Dioxide Level 29.6 MEQ/L Anion Gap 12 MEQ/L Blood Urea Nitrogen 84 MG/DL Creatinine 3.62 MG/DL Estimat Glomerular Filtration 17 ML/MIN Rate Random Glucose 143 MG/DL Calcium Level 8.4 MG/DL Phosphorus Level 6.1 MG/DL Magnesium Level 2.4 MG/DL Total Bilirubin 0.3 MG/DL Aspartate Amino Transf 15 U/L (AST/SGOT) Alanine Aminotransferase 21 U/L (ALT/SGPT) Alkaline Phosphatase 55 U/L Total Protein 5.5 GM/DL Albumin 2.8 GM/DL Imaging Last Impressions Chest X-Ray 03/02/17 0600 Signed Impressions: Service Date/Time: Thursday, March 02, 2017 03:58 - CONCLUSION: Tubes and catheters in good position. Large bilateral pleural effusions right greater left are unchanged. Jong Garcia MD Abdomen X-Ray 03/02/17 0600 Signed Impressions: Service Date/Time: Thursday, March 02, 2017 04:03 - CONCLUSION: Normal examination. The NG tube is entering the proximal stomach. Jong Garcia MD Chest CT 03/02/17 0000 Signed Impressions: Service Date/Time: Thursday, March 02, 2017 11:42 - CONCLUSION: Large bilateral pleural effusions and bibasilar consolidation and/or compressive collapse not present on the study from 2014. KHua Nguyen MD Lower Extremity Ultrasound 02/27/17 0000 Signed Impressions: Service Date/Time: Monday, February 27, 2017 09:13 - CONCLUSION: Normal examination. Evaristo Massey MD Head CT 02/24/17 0000 Signed Impressions: Service Date/Time: Friday, February 24, 2017 18:59 - CONCLUSION: 1. No acute hemorrhage or mass effect. 2. Acute sinusitis in the left maxillary sinus. Raul Craig MD Cervical Spine MRI 02/24/17 0000 Signed Impressions: Service Date/Time: Friday, February 24, 2017 22:46 - CONCLUSION: 1. Small central protrusion at C4-5 without canal stenosis. 2. Small central protrusion at C3-4 with minimal extruded component. 3. Mild broad-based disc bulges at C5- 6 and C6-7 levels without canal stenosis. Neto Duenas MD Cervical Spine CT 02/24/17 0000 Signed Impressions: Service Date/Time: Friday, February 24, 2017 19:02 - CONCLUSION: 1. Moderate narrowing of left neural foramina at the C3-4 level secondary to hypertrophic change involving the facet joint. 2. Mild degenerative change at the C5-6 and C6-7 levels. 3. Mild disc osteophyte complex at C5-6 with mild narrowing of the neural foramina. Raul Craig MD Brain MRI 02/24/17 0000 Signed Impressions: Service Date/Time: Friday, February 24, 2017 22:46 - CONCLUSION: 1. No acute intracranial abnormality. 2. Left maxillary sinus disease. 3. No acute infarction. Neto Duenas MD Assessment and Plan Problem List: (1) NSTEMI (non-ST elevated myocardial infarction) (2) Acute CHF (3) Shock (4) Atrial fibrillation Assessment and Plan Acute respiratory distress appears to be multifactorial. PNA, COPD, CHF CHF, acute systolic Cardiomyopathy - EF 25%. Severe PHTN NSTEMI ARF Sepsis At least moderate aortic stenosis. SBP improved today. ARF - monitor Cr. unable to tolerate diuretic. ok to hold heparin gtt for thoracentesis. will not start BB or ERLIN due to recent hypotension and sepsis. Jong Butts MD Mar 02, 2017 14:25
--- NOTE | 2017-03-02 16:04 | RADRPT ---
EXAM DATE/TIME: 03/02/2017 15:05 [facility] COMPARISON: CHEST SINGLE AP, March 02, 2017, 3:58. INDICATIONS : Post thoracentesis MEDICAL HISTORY : None. SURGICAL HISTORY : None. ENCOUNTER: Subsequent ACUITY: 1 week PAIN SCORE: Non-responsive. LOCATION: Bilateral chest FINDINGS: An endotracheal tube has its tip 4 cm above the gwendolyn. A nasogastric tube has its tip below the iron phragm. A right subclavian central line has its tip in the superior vena cava. Right internal jugu lar vascular sheath is stable. The heart is enlarged. Minimal pulmonary vascular congestion is noted bilaterally. Small bilateral pleural effusions with probable adjacent compressive atelectasis are no chester. No pneumothorax is noted. CONCLUSION: 1. Small bilateral pleural effusions with probable adjacent compressive atelectasis. 2. Cardiomegaly. 3. No pneumothorax. 4. Multiple tubes and lines are stable. 5. Minimal central pulmonary vascular congestion. Cash Cowan MD on March 02, 2017 at 15:56 Board Certified Radiologist. This report was verified electronically.
[2017-03-02 20:22] LABS: HEMATOCRIT 29.6 % (39.0-51.0); MEAN CELL VOLUME 89.7 FL (80.0-100.0); MEAN CORPUSCULAR HEMOGLOBIN 29.5 PG (27.0-34.0); MEAN CORPUSCULAR HGB CONC 32.9 % (32.0-36.0); PLATELET COUNT 191 TH/MM3 (150-450); RED CELL DISTRIBUTION WIDTH 14.6 % (11.6-17.2); REVIEW FLAG FINAL; WHITE BLOOD COUNT 9.3 TH/MM3 (4.0-11.0)
[2017-03-02 20:39] LABS: BICARBONATE 27.9 MEQ/L (21.0-32.0); POTASSIUM 3.7 MEQ/L (3.5-5.1)
[2017-03-02 20:53] LABS: APTT (PATIENT) 37.3 SEC (24.3-30.1); PROTHROMBIN TIME - PATIENT 11.4 SEC (9.8-11.6)
[2017-03-02] MEDS: ASPIRIN EC 81 MG TABEC PO SCH (20:57)
[2017-03-02] MEDS: ATORVASTATIN 80 MG TAB PO SCH (20:57)
[2017-03-03] VITALS (19 sets, daily range): BP systolic 118–147; BP diastolic 46–62; PULSE 66–107; RESP 18; TEMP 98.3–98.5; O2SAT 91–97
[2017-03-03] MEDS: RESP: ALBUTEROL 2.5 MG/IPRATROPIUM 0.5 MG NEB (SCH) INH ×6 (03:27→22:36)
[2017-03-03] MEDS: CHLORHEXIDINE GLUCONATE 2 % 1 PACK (2 CLOTHS) TOP SCH (03:38)
[2017-03-03] MEDS: PIPERACIL-TAZO 3.375 GM PREMIX 50 ML IV SCH ×4 (03:45→20:44)
[2017-03-03 04:48] LABS: AUTOMATED NEUTROPHIL # 8.1 TH/MM3 (1.8-7.7); BASOPHIL % 0.4 % (0.0-2.0); HEMATOCRIT 29.5 % (39.0-51.0); LYMPH % 3.3 % (9.0-44.0); LYMPHOCYTE # 0.3 TH/MM3 (1.0-4.8); MEAN CELL VOLUME 89.4 FL (80.0-100.0); MEAN CORPUSCULAR HEMOGLOBIN 29.5 PG (27.0-34.0); MONO % 7.6 % (0.0-8.0); NEUT % 88.7 % (16.0-70.0); PLATELET COUNT 178 TH/MM3 (150-450); RED BLOOD COUNT 3.31 MIL/MM3 (4.50-5.90); RED CELL DISTRIBUTION WIDTH 14.2 % (11.6-17.2); WHITE BLOOD COUNT 9.1 TH/MM3 (4.0-11.0)
[2017-03-03 05:05] LABS: HEMO FLAGS AUTO DIFF
[2017-03-03 05:22] LABS: MAGNESIUM 2.7 MG/DL (1.5-2.5); POTASSIUM 3.6 MEQ/L (3.5-5.1)
[2017-03-03] MEDS: ARTIFICIAL TEARS OPTH SOLN 15 ML BTL EACH EYE SCH ×3 (05:45→20:26)
[2017-03-03] MEDS: methylPREDNISolone SOD SUCC 125 MG/2 ML VIAL IV PUSH SCH (06:01)
[2017-03-03] MEDS: METOCLOPRAMIDE HCL 10 MG/2 ML VIAL IV PUSH SCH ×3 (06:01→20:22)
--- NOTE | 2017-03-03 07:31 | PD.CARD.PN ---
Subjective Subjective Remarks Awake, remains intubated Objective Vital Signs / I&O Vital Signs Date Time Temp Pulse Resp B/P Pulse Ox O2 Delivery O2 Flow Rate FiO2 03/03/17 06:00 68 03/03/17 05:07 96 40 03/03/17 04:00 40 03/03/17 04:00 68 03/03/17 04:00 98.3 71 18 124/60 95 144/53 03/03/17 02:00 68 03/03/17 01:42 97 40 03/03/17 00:00 68 03/03/17 00:00 98.3 68 18 118/58 95 137/50 03/03/17 00:00 40 03/02/17 23:39 69 03/02/17 23:22 95 40 03/02/17 20:00 40 03/02/17 20:00 98.3 73 18 127/61 97 146/53 03/02/17 20:00 73 03/02/17 19:50 96 40 03/02/17 18:00 72 03/02/17 16:00 98.8 70 18 118/58 97 142/52 03/02/17 16:00 70 03/02/17 16:00 40 03/02/17 15:33 98 40 03/02/17 14:00 70 03/02/17 12:01 96 40 03/02/17 12:00 40 03/02/17 12:00 98.6 90 18 124/58 97 132/52 03/02/17 12:00 90 03/02/17 11:20 100 50 03/02/17 10:00 71 03/02/17 09:08 95 40 03/02/17 08:00 98.6 71 18 117/56 95 141/50 03/02/17 08:00 71 03/02/17 08:00 40 I/O 03/02/17 03/02/17 03/02/17 03/03/17 03/03/17 03/03/17 07:00 15:00 23:00 07:00 15:00 23:00 Intake Total 752 ml 1024 ml 640 ml 370 ml Output Total 900 ml 600 ml 625 ml 600 ml Balance -148 ml 424 ml 15 ml -230 ml Intake Oral 0 ml 0 ml IV Total 613 ml 905 ml 401 ml 310 ml Tube Feeding 79 ml 119 ml 179 ml 0 ml Other 60 ml 60 ml 60 ml Output Urine Total 900 ml 600 ml 625 ml 600 ml Gastric Drainage Total 0 ml 0 ml # Bowel Movements 1 0 1 Physical Exam BP 180/80 RRR no murmur. Decreased BS bilaterally Laboratory Laboratory Tests Test 03/02/17 03/03/17 18:58 04:15 White Blood Count 9.3 TH/MM3 9.1 TH/MM3 Red Blood Count 3.30 MIL/MM3 3.31 MIL/MM3 Hemoglobin 9.7 GM/DL 9.7 GM/DL Hematocrit 29.6 % 29.5 % Mean Corpuscular Volume 89.7 FL 89.4 FL Mean Corpuscular Hemoglobin 29.5 PG 29.5 PG Mean Corpuscular Hemoglobin 32.9 % 33.0 % Concent Red Cell Distribution Width 14.6 % 14.2 % Platelet Count 191 TH/MM3 178 TH/MM3 Mean Platelet Volume 9.5 FL 9.1 FL Prothrombin Time 11.4 SEC Prothromb Time International 1.0 RATIO Ratio Activated Partial 37.3 SEC Thromboplast Time Sodium Level 141 MEQ/L 142 MEQ/L Potassium Level 3.7 MEQ/L 3.6 MEQ/L Chloride Level 101 MEQ/L 101 MEQ/L Carbon Dioxide Level 27.9 MEQ/L 28.0 MEQ/L Anion Gap 12 MEQ/L 13 MEQ/L Blood Urea Nitrogen 98 MG/DL 104 MG/DL Creatinine 3.81 MG/DL 3.83 MG/DL Estimat Glomerular Filtration 16 ML/MIN 16 ML/MIN Rate Random Glucose 115 MG/DL 117 MG/DL Calcium Level 8.4 MG/DL 8.5 MG/DL Neutrophils (%) (Auto) 88.7 % Lymphocytes (%) (Auto) 3.3 % Monocytes (%) (Auto) 7.6 % Eosinophils (%) (Auto) 0.0 % Basophils (%) (Auto) 0.4 % Neutrophils # (Auto) 8.1 TH/MM3 Lymphocytes # (Auto) 0.3 TH/MM3 Monocytes # (Auto) 0.7 TH/MM3 Eosinophils # (Auto) 0.0 TH/MM3 Basophils # (Auto) 0.0 TH/MM3 CBC Comment AUTO DIFF Phosphorus Level 7.3 MG/DL Magnesium Level 2.7 MG/DL Assessment and Plan Problem List: (1) NSTEMI (non-ST elevated myocardial infarction) (2) Acute CHF (3) Shock (4) Atrial fibrillation Assessment and Plan For thoracentesis today. Elevated BP likely secondary to agitation. If remains high will consider adding beta charles and/or ERLIN Israel Gonzalez MD Mar 03, 2017 07:31
[2017-03-03 08:06] LABS: BANDS 7 % (0-6); PLATELET ESTIMATE SMEAR NORMAL (NORMAL); PLATELET MORPHOLOGY NORMAL (NORMAL); POLYS (SEG NEUTROPHILS) 81 % (16-70); SCAN/DIFF FINAL DIFF MANUAL; WBC DIFF SAMPLE 100
[2017-03-03] MEDS: CHLORHEXIDINE 0.12% (ORAL KIT) 15 ML CUP MT SCH ×2 (08:10→20:25)
[2017-03-03] MEDS: THIAMINE INJ 100 MG in SODIUM CHLORIDE 0.9% INJ 100 ML IV SCH (08:11)
[2017-03-03] MEDS: PANTOPRAZOLE SODIUM 40 MG VIAL IV SCH (08:12)
[2017-03-03] MEDS: DOCUSATE SODIUM 100 MG CAP PO SCH ×2 (08:13→20:21)
[2017-03-03] MEDS: AZITHROMYCIN INJ 500 MG in SODIUM CHLOR 0.9% 250 ML INJ 250 ML IV SCH (08:13)
[2017-03-03] MEDS: SODIUM CHLORIDE 0.9% FLUSH 10 ML FLUSH IV FLUSH SCH ×2 (08:13→20:25)
[2017-03-03] MEDS: LACTIC ACID (AMMONIUM LACTATE) 12% LOTION 225 GM BTL TOPICAL SCH ×2 (08:14→20:26)
[2017-03-03] MEDS: BENEPROTEIN POWDER 1 PACK G-TUBE SCH ×3 (08:14→17:13)
[2017-03-03] MEDS: MULTIVITAMIN TAB PO SCH (08:14)
[2017-03-03] MEDS: FOLIC ACID 1 MG TAB PO SCH (08:14)
[2017-03-03] MEDS: SENNOSIDES SYRUP 8.8 MG/5 ML CUP PO SCH ×2 (08:14→20:21)
[2017-03-03] MEDS: INSULIN DETEMIR 100 UNITS/ML VIAL SQ SCH ×2 (08:14→20:24)
[2017-03-03] MEDS ORDERED: GLUCAGON 1 MG/ML VIAL OTHER PRN (08:45)
[2017-03-03] MEDS ORDERED: DEXTROSE 50% IN WATER 50 ML VIAL(D50) IV PUSH PRN (08:45)
[2017-03-03] MEDS: RESP: BUDESONIDE 0.5 MG/2 ML NEB NEB SCH ×2 (09:08→19:09)
[2017-03-03] MEDS: CALCIUM ACETATE 667 MG CAP PO SCH ×3 (10:54→17:13)
--- NOTE | 2017-03-03 11:06 | HHI.NPPN ---
Subjective General Problems: Edema, Hypotension Renal Failure: Acute Interval History Remains intubated, sedated. Renal function is stable. at bedside. ( Katina Park) Review of Systems General General Remarks unable to evaluate (Katina Park) Objective Data Data 03/02/17 03/03/17 19:00 07:00 Intake Total 1024 ml 1010 ml Output Total 600 ml 1225 ml Balance 424 ml -215 ml Intake Oral 0 ml IV Total 905 ml 711 ml Tube Feeding 119 ml 179 ml Other 120 ml Output Urine Total 600 ml 1225 ml Gastric Drainage Total 0 ml # Bowel Movements 1 Vital Signs Date Time Temp Pulse Resp B/P Pulse Ox O2 Delivery O2 Flow Rate FiO2 03/03/17 10:00 75 03/03/17 09:09 96 40 03/03/17 08:00 69 03/03/17 08:00 98.4 69 18 130/62 97 142/53 03/03/17 08:00 40 03/03/17 06:00 68 03/03/17 05:07 96 40 03/03/17 04:00 40 03/03/17 04:00 68 03/03/17 04:00 98.3 71 18 124/60 95 144/53 03/03/17 02:00 68 03/03/17 01:42 97 40 03/03/17 00:00 68 03/03/17 00:00 98.3 68 18 118/58 95 137/50 03/03/17 00:00 40 03/02/17 23:39 69 03/02/17 23:22 95 40 03/02/17 20:00 40 03/02/17 20:00 98.3 73 18 127/61 97 146/53 03/02/17 20:00 73 03/02/17 19:50 96 40 03/02/17 18:00 72 03/02/17 16:00 98.8 70 18 118/58 97 142/52 03/02/17 16:00 70 03/02/17 16:00 40 03/02/17 15:33 98 40 03/02/17 14:00 70 03/02/17 12:01 96 40 03/02/17 12:00 40 03/02/17 12:00 98.6 90 18 124/58 97 132/52 03/02/17 12:00 90 03/02/17 11:20 100 50 (Katina Park) -: 03/03/17 0415 03/03/17 0415 Imaging Last 72 hours Impressions Chest X-Ray 03/02/17 0600 Signed Impressions: Service Date/Time: Thursday, March 02, 2017 03:58 - CONCLUSION: Tubes and catheters in good position. Large bilateral pleural effusions right greater left are unchanged. Jong Garcia MD Abdomen X-Ray 03/02/17 0600 Signed Impressions: Service Date/Time: Thursday, March 02, 2017 04:03 - CONCLUSION: Normal examination. The NG tube is entering the proximal stomach. Jong Garcia MD Chest X-Ray 03/02/17 0000 Signed Impressions: Service Date/Time: Thursday, March 02, 2017 15:05 - CONCLUSION: 1. Small bilateral pleural effusions with probable adjacent compressive atelectasis. 2. Cardiomegaly. 3. No pneumothorax. 4. Multiple tubes and lines are stable. 5. Minimal central pulmonary vascular congestion. Cash Cowan MD Chest CT 03/02/17 0000 Signed Impressions: Service Date/Time: Thursday, March 02, 2017 11:42 - CONCLUSION: Large bilateral pleural effusions and bibasilar consolidation and/or compressive collapse not present on the study from 2014. Travis Nguyen MD Abdomen X-Ray 03/01/17 0000 Signed Impressions: Service Date/Time: Wednesday, March 01, 2017 08:26 - CONCLUSION: Nonspecific bowel gas. Travis Nguyen MD Tubes & Lines: [place] Tubes & Lines Comment [place] Luisa catheter, Drip Comment heparin, versed, fentanyl, amiodarone (Katina Park) Physical Exam General Appearance: Well Developed, Well Nourished, Sleeping, Obese Appearance Remarks intubated, sedated but opens eyes and shakes to stimulation (Katina Park) Throat Throat Exam: Oral Mucosa [place] & Moist (Katina Park) Pulmonary Resp Exam: No Distress, Crackles, Decreased Bases, Diminished Breath Sounds ( Katina Park) Cardiology CV Exam: Good Perfusion, Irregular CV Remarks rate controlled (Katina Park) Gastrointestinal/Abdomen GI Exam: Soft, Non-Tender, Bowel Sounds Present, Distended (Katina Park) Genitourinary Exam: Clear Urine (Katina Park) Musculoskeletal MS Exam: Joints Intact, Normal Tone, Unable to Ambulate (Katina Park) Integumentary Skin Exam: Clear, Warm, Dry, Intact (Katina Park) Extremeties Extremities Exam: Pedal Pulses Palpable, Moderate Edema (Katina Park) Neurologic Neuro Exam: Moving All Extremities, Unresponsive, Sedated (Katina Park) Assessment/Plan Assessment Summary: Hypotension, Diabetes Mellitus Problem List: (1) Acute renal failure superimposed on chronic kidney disease Plan: RAGHAVENDRA likely due to hypotension, renal hypoperfusion, may have progressed to ATN. renal function has remained stable, BUN elevated which may be due to steroids. diuretics are on hold he is non oliguric monitor edema phoslo started for hyperphosphatemia avoid nephrotoxins he is off pressors daily renal panel (2) NSTEMI (non-ST elevated myocardial infarction) Plan: Cardiology following. Unstable for catheterization at this time he is on heparin gtt converted to NSR, rate in 80s. Consider stopping amiodarone and converting to oral agent (3) CHF exacerbation Plan: worsened by acute ID. monitor fluid volume status , diuresis as needed/tolerated (4) Pneumonia Plan: Currently on prednisone, zosyn, and Zithromax continue vent management, settings are 18/600/40/5 all cultures are negative (5) Type 2 diabetes mellitus Plan: off insulin drip blood sugar has improved (Katina Park) Plan patient was seen and examined. Agree with above assessment and plan (Pablo Miner MD) Problem Qualifiers (1) CHF exacerbation: Qualified Code: I50.9 - Acute on chronic congestive heart failure, unspecified congestive heart failure type (2) Pneumonia: Qualified Code: J18.1 - Pneumonia of right lower lobe due to infectious organism Katina Park Mar 03, 2017 11:06 Pablo Miner MD Mar 04, 2017 09:37
[2017-03-03] MEDS: INSULIN NovoLIN REGULAR SUPPLEMENTAL SCALE SQ SCH ×4 (11:31→23:37)
--- NOTE | 2017-03-03 13:11 | HHI.CCPN ---
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 Upon arrival to F pod discovered that patient was awake and normotensive, with sinus tachycardia in the 150s in severe respiratory distress. He had not lost a pulse but [facility] had been called to facilitate rapid evaluation and stabilization. 76-year-old male with past history of obesity, COPD, obstructive sleep apnea on CPAP, CHF, peripheral neuropathy, hypertension, diabetes, hyperlipidemia, obesity who receives medical care at the [facility]. He presented to [facility] emergency department 02/25/17 with falls and difficulty with balance. He also reported that he was having shortness of breath and cough for several days. Was not febrile in hospital. On the day of admission he had some chest pain across his chest. Troponins negative. He was treated for pneumonia with Rocephin and azithromycin. He was placed on steroids Solu-Medrol 60 mg IV every 6 hours. Received Lasix at about 6 PM on due to concern for volume overload. Echo had poor images but systolic function appeared reduced. Tonight he developed acutely worsening shortness of breath and Dr. Galicia presented to the emergency Department to evaluate him where he was found to be tachypneic and wheezing. He was given a neb and preparations were being made to place him on BiPAP. He was becoming less responsive and was looking upward when I arrived and respiratory was placing on Bipap. He was in extremis and it was felt he would need emergent intubation prior to transfer to ICU. He denied chest pain. He was preoxygenated on Bipap, did seem to become more alert and nodded that he agreed with proceeding with intubation. He was intubated in F pod and then transferred to [facility]. Upon arrival to [facility] he was in atrial fibrillation in the 130s. SBP was 90/50 then 64/40. Central line was placed and he converted to sinus tachycadia in 101-130s. Subsequently he was normotensive with MAP 71. He was also sedated with propofol during the hypotension, improved after transition to fentanyl drip. 02/27: PA catheter placed yesterday. PA catheter readings are more consistent distributive/septic shock with high cardiac output with low SVR. CO 10-11. CI 2.8 SVRI [id number]. D/W Dr Butts. Will hold off Flolan challenge at this time for high PA pressure- mean 59-60. After weaning pressors, PA mean pressure is about 40. Patient's hemodynamics have improved, vasopressin is off now, Levophed is at 4 mics per minute. Give Bumex 2 mg 1 on Bumex drip at 2 mg per hour per Dr. Miner 02/28: Afebrile. Arousable on the vent and moves 4 extremities spontaneously but doesn't follow commands. No bowel movement since admission. Currently nothing by mouth. Remains on low-dose vasopressors including vasopressin and Levophed 03/01: [place] catheter removed yesterday. Adequate urine output on Bumex drip at 1 mg an hour. Afebrile. Currently replaced potassium. 03/02: Afebrile. Bumex drip has been discontinued. Currently replaced potassium. Positive BM overnight. We'll attempt spontaneous breathing trials today. Subjective 03/03: Afebrile. Adequate urine output. Positive BM. Tolerating tube feeds. Heparin drip for thoracentesis. Eyes are open but not following commands. Continues on Versed and fentanyl drips. Objective Vital Signs Date Time Temp Pulse Resp B/P Pulse Ox O2 Delivery O2 Flow Rate FiO2 03/03/17 12:00 40 03/03/17 12:00 98.4 72 18 124/60 95 134/49 Intake and Output 03/02/17 03/02/17 03/03/17 08:00 16:00 00:00 Intake Total 752 ml 1024 ml 640 ml Output Total 900 ml 600 ml 625 ml Balance -148 ml 424 ml 15 ml Result Diagram: 03/03/17 0415 03/03/17 0415 Imaging Last Impressions Chest X-Ray 03/02/17 06 Signed Impressions: Service Date/Time: Thursday, March 02, 2017 03:58 - CONCLUSION: Tubes and catheters in good position. Large bilateral pleural effusions right greater left are unchanged. Jong Garcia MD Abdomen X-Ray 03/02/17 06 Signed Impressions: Service Date/Time: Thursday, March 02, 2017 04:03 - CONCLUSION: Normal examination. The NG tube is entering the proximal stomach. Jong Garcia MD Chest CT 03/02/17 0000 Signed Impressions: Service Date/Time: Thursday, March 02, 2017 11:42 - CONCLUSION: Large bilateral pleural effusions and bibasilar consolidation and/or compressive collapse not present on the study from 2015. KHua Nguyen MD Lower Extremity Ultrasound 02/27/17 0000 Signed Impressions: Service Date/Time: Monday, February 27, 2017 09:13 - CONCLUSION: Normal examination. Evaristo Massey MD Head CT 02/24/17 0000 Signed Impressions: Service Date/Time: Friday, February 24, 2017 18:59 - CONCLUSION: 1. No acute hemorrhage or mass effect. 2. Acute sinusitis in the left maxillary sinus. Raul Craig MD Cervical Spine MRI 02/24/17 0000 Signed Impressions: Service Date/Time: Friday, February 24, 2017 22:46 - CONCLUSION: 1. Small central protrusion at C4-5 without canal stenosis. 2. Small central protrusion at C3-4 with minimal extruded component. 3. Mild broad-based disc bulges at C5- 6 and C6-7 levels without canal stenosis. Neto Duenas MD Cervical Spine CT 02/24/17 0000 Signed Impressions: Service Date/Time: Friday, February 24, 2017 19:02 - CONCLUSION: 1. Moderate narrowing of left neural foramina at the C3-4 level secondary to hypertrophic change involving the facet joint. 2. Mild degenerative change at the C5-6 and C6-7 levels. 3. Mild disc osteophyte complex at C5-6 with mild narrowing of the neural foramina. Raul Craig MD Brain MRI 02/24/17 0000 Signed Impressions: Service Date/Time: Friday, February 24, 2017 22:46 - CONCLUSION: 1. No acute intracranial abnormality. 2. Left maxillary sinus disease. 3. No acute infarction. Neto Duenas MD Objective Remarks GENERAL: 56-year-old male, critically ill currently resting in bed in no acute distress SKIN: Warm and dry. Perfusing adequately HEAD: Atraumatic. Normocephalic. EYES: Pupils equal and round 3-4 mm and reactive bilaterally. No scleral icterus. No injection or drainage. ENT: Orotracheally intubated NECK: Trachea midline. Right IJ introducer has been removed. Subclavian clean dry and intact CARDIOVASCULAR: Tachycardic, IR. S1, S2. No S4. Faint 1/6 systolic murmur right upper sternal border RESPIRATORY: Few crackles appreciated bilaterally. Symmetrical excursion. GASTROINTESTINAL: Abdomen obese, protuberant, small umbilical reducible hernia. Bowel sounds are hypoactive no voluntary guarding. MUSCULOSKELETAL: Extremities with chronic 2+ pitting bilateral lower extremity edema up to knee. Chronic venous stasis/lymphedema NEUROLOGICAL: Eyes are open. Positive corneal reflex. Positive gag. Moves all 4 extremity spontaneously. Withdraws to pain upper and lower extremities bilaterally. A/P Assessment and Plan NEURO/PSYCH: Acute encephalopathy - secondary to hypercapnea and hypoxemia Peripheral neuropathy Allergic rhinitis Currently on Versed drip at 5 mg an hour and Fentanyl drip at 150 g an hour for sedation/analgesia while intubated Goal of RASS -2 Daily sedation vacation MRI brain 02/24 - no acute abnormality MRI C-spinesmall central protrusion at C3/C4 with mild extruded central spinal cord C4-C5 without canal stenosis with mild disc bulging C5/6 and C6/7 EEG 02/27 revealed moderate to severe encephalopathy. No epileptiform activity Questionable history of EtOH use/abuse. We'll continue on thiamine/folate and multivitamin today Check Neurontin level. Previously on 600 mg 3 times a day. Currently on hold Holding Flonase twice a day/Zyrtec 5 mill grams daily. Resume as clinically indicated RESP: Acute hypoxemic and hypercapnic respiratory failure Acute COPD exacerbation History of asthma? Acute on chronic pulmonary artery hypertension Objective sleep apnea - noncompliant with CPAP History of tobacco abuse ACV 18/620/5/35 Ventilator bundle DuoNeb every 4 hours with albuterol every 2 hours when necessary Continue Pulmicort 0.5/2 one inhalation twice a day Solumedrol 20 milligrams every q8 to be weaned over the next several days For thoracentesis today Home medication regimen is Symbicort 160/4.5 to press twice a day, Spiriva 18 inhalation daily and Ventolin 4 times a day with duo nebs aerosols for breakthrough every 4 hours when necessary According to records, noncompliant with CPAP for [place] Airway edema noted particularly large arytenoid edema noted on intubation 02/26 with anterior airway. Intubated with Glidescope and 7.5 ETT. Cardiovascular: Shock, distributive/septic resolving Acute on chronic systolic heart failure EF 25-30% Moderate Moderate to severe TR NSTEMI Paroxysmal atrial fibrillation/flutter History of Hypertension Hyperlipidemia History of coronary artery disease Currently off all vaso pressors. PAC placed 02/26: Numbers at that time consistent with distributive shock (CI 2.8 , SVRI 1300). Currently cardiac index at 2.1. 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 Butts Continue IV heparin for NSTEMI and A Fib rate currently on hold secondary to thoracentesis. Resume 4 hours postthoracentesis Bumex 2 mg IV 1 02/27 and initiated Bumex infusion currently at 0.5 mg per hour Continue aspirin 81 mg daily Continue amiodarone drip at 0.5 mg a minute to transition to oral when okay with cardiology Troponin peaked at 27. Left heart catheterization when clinically stable Continue atorvastatin 80 mg daily at bedtime for dyslipidemia Unable to use beta charles secondary due to shock. On Lopressor 200 mg daily at home. Other blood pressures include lisinopril 40 mg daily and HCTZ 12.5 mg daily. On hold due to acute kidney injury Echo 02/27: - Systolic function was severely reduced 25% to 30%. Diffuse hypokinesis. -Aortic valve: moderate stenosis. Tricuspid valve: Moderate/severe regurgitation. SUZAN 70 mmHg GI: Constipation Glucerna 1.5 goal 55 cc an hour currently on hold secondary to thoracentesis Protonix daily Colace and Senokot twice a day for bowel regimen 1 BMs overnight : BPH Holding doxazosin 8 mg daily light of hypotension Maintain Barrios for accurate I's and O's in a critically ill patient/Bumex drip FEN/RENAL: Acute kidney injury/ATN Hypokalemia Monitor intake and output. Monitor electrolytes Bumex discontinued Nonoliguric. ID: Acute community acquired pneumonia Septic shock Zosyn/azithromycin. Single dose of vancomycin Microbiology: lood culture 2 setsno growth to date 02/25sputum - no growth 02/25urine Legionella and pneumococcal antigen negative 02/25influenza screen negative 02/26 - urine - no growth 02/26 - blood cultures 2 - no growth Likely de-escalate antibiotics next 24-48 hours HEME: Normocytic anemia No indication for transfusion of blood products at this time Continue IV heparin drip for A. fib/nonsustained ENDO: Poorly controlled diabetes mellitus - hemoglobin A1c of 8.6 Started Levemir 40 units twice a day with sliding scale insulin 4/moderate regimen. Insulin drip discontinued At home on Lantus 35 units twice a day and Novulin R 15 units 3 times a day with meals MSK Chronic lymphedema Osteoporosis/osteoarthritis Resume Lac-Hydrin twice a day for lower extremity lymphedema 02/27 venous Dopplers showed no DVT Hold Risedronate 35 mg mg weekly for osteoporosis PROPH: Protonix 40 mg IV daily for stress ulcer prophylaxis. Heparin drip as per above ACCESS: Right subclavian central venous line placed 02/26 #6 Right IJ Cordis/day #4 discontinued 03/02 Full code Critical Care: The total critical care time was 35 minutes. Time to perform other separately billable procedures was not included in the critical care time. Ramo Almaraz MD Mar 03, 2017 13:10
[2017-03-03] MEDS: methylPREDNISolone SOD SUCC 40 MG/1 ML VIAL IV PUSH SCH ×2 (13:19→20:22)
[2017-03-03] MEDS: AMIODARONE INJ 450 MG in D5W (EXCEL BAG) 241 ML IV SCH (13:29)
[2017-03-03] MEDS: fentaNYL 2,500 MCG/NS 250 ML IV SCH (13:30)
[2017-03-03] MEDS ORDERED: LIDOCAINE 1%/EPINEPHrine 1:100,000 SOLN 20 ML VIAL ONE (13:34)
--- NOTE | 2017-03-03 15:39 | RADRPT ---
EXAM DATE/TIME: 03/03/2017 14:09 INDICATIONS : Right pleural effusion. DEVICE(S): 1.) 18 gauge Nelson blunt needle 2.) 6 Fr [id number] FLUID: Total volume of 1150 cc of clear, yellow fluid was removed. Fluid was sent for laboratory ordered studies. MEDICAL HISTORY : Myocardial infarction. Congestive heart failure. Chronic obstructive pulmonary disease. Diabetes. SURGICAL HISTORY : None. ENCOUNTER: Initial ACUITY: 1 day PAIN SCORE: Non-responsive LOCATION: Right chest PROCEDURE: 1. CT guided right thoracentesis. The site was prepped in sterile fashion. Full sterile technique was used, including cap, mask, steri le gloves and gown and a large sterile sheet. Hand hygiene and 2% chlorhexidine and/or betadine/alco hol prep was utilized per protocol for cutaneous antisepsis. The skin and subcutaneous tissues were infiltrated with local anesthetic solution. Using automated exposure control and adjustment of the mA and/or kV according to patient size, radiation dose was kept as low as reasonably achievable to obta in optimal diagnostic quality images. With the patient supine on the CT table, complex manager images were obtained through the chest demonstrating t he right sided pleural effusion. Dermatotomy was made and the prescribed catheter was advanced into the pleural fluid. The pleural fluid as above was removed from the hemithorax. Post procedural scan show reduction in the amount of fluid with no evidence of pneumothorax. The patient tolerated the procedure well and there were no complications. EKG and oximetry remained s table throughout the procedure. The patient was sent to recovery in stable condition. CONCLUSION: Uncomplicated CT-guided right thoracentesis. Cash Cowan MD on March 03, 2017 at 15:37 Board Certified Radiologist. This report was verified electronically.
[2017-03-03 16:00] LABS: TOTAL PROTEIN,PLEURAL FLUID 1.9 GM/DL
[2017-03-03 17:32] LABS: PLEURAL FLUID LYMPHS 35 %
[2017-03-03] MEDS: ASPIRIN EC 81 MG TABEC PO SCH (20:24)
[2017-03-03] MEDS: ATORVASTATIN 80 MG TAB PO SCH (20:24)
[2017-03-03] MEDS: MIDAZOLAM 100 MG/NS 100 ML DRIP Premix IV SCH (20:26)
[2017-03-04] VITALS (17 sets, daily range): BP systolic 101–164; BP diastolic 39–72; PULSE 63–138; RESP 15–18; TEMP 97.1–98.5; O2SAT 93–100
[2017-03-04] MEDS: fentaNYL 2,500 MCG/NS 250 ML IV SCH ×2 (01:42→14:12)
[2017-03-04 01:43] LABS: APTT (PATIENT) 43.2 SEC (24.3-30.1)
[2017-03-04] MEDS: RESP: ALBUTEROL 2.5 MG/IPRATROPIUM 0.5 MG NEB (SCH) INH ×6 (03:00→23:14)
[2017-03-04] MEDS: INSULIN NovoLIN REGULAR SUPPLEMENTAL SCALE SQ SCH ×5 (04:00→20:00)
[2017-03-04] MEDS: CHLORHEXIDINE GLUCONATE 2 % 1 PACK (2 CLOTHS) TOP SCH (04:00)
[2017-03-04 04:18] LABS: BASOPHIL % 0.2 % (0.0-2.0); HEMATOCRIT 28.9 % (39.0-51.0); LYMPH % 3.4 % (9.0-44.0); LYMPHOCYTE # 0.3 TH/MM3 (1.0-4.8); MEAN CELL VOLUME 89.2 FL (80.0-100.0); MEAN CORPUSCULAR HGB CONC 33.7 % (32.0-36.0); NEUT % 89.4 % (16.0-70.0); PLATELET COUNT 196 TH/MM3 (150-450); RED BLOOD COUNT 3.24 MIL/MM3 (4.50-5.90); RED CELL DISTRIBUTION WIDTH 14.3 % (11.6-17.2)
[2017-03-04 04:36] LABS: HEMO FLAGS AUTO DIFF
[2017-03-04 05:03] LABS: ALKALINE PHOSPHATASE 53 U/L (45-117); ALT (GPT) 21 U/L (12-78); ANION GAP 13 MEQ/L (5-15); AST (GOT) 18 U/L (15-37); BICARBONATE 26.8 MEQ/L (21.0-32.0); BLOOD UREA NITROGEN 119 MG/DL (7-18); CHLORIDE 104 MEQ/L (98-107); CREATINE KINASE 502 U/L (39-308); GLOMERULAR FILTRATION RATE 16 ML/MIN (>89); POTASSIUM 3.9 MEQ/L (3.5-5.1); SODIUM (NA) 144 MEQ/L (136-145); TOTAL BILIRUBIN ADULT 0.4 MG/DL (0.2-1.0)
[2017-03-04] MEDS: methylPREDNISolone SOD SUCC 40 MG/1 ML VIAL IV PUSH SCH ×2 (05:21→21:51)
[2017-03-04] MEDS: ARTIFICIAL TEARS OPTH SOLN 15 ML BTL EACH EYE SCH ×3 (05:21→21:52)
[2017-03-04] MEDS: METOCLOPRAMIDE HCL 10 MG/2 ML VIAL IV PUSH SCH ×3 (05:21→21:53)
[2017-03-04] MEDS: AMIODARONE INJ 450 MG in D5W (EXCEL BAG) 241 ML IV SCH ×2 (05:22→18:05)
[2017-03-04] MEDS: PIPERACIL-TAZO 3.375 GM PREMIX 50 ML IV SCH ×2 (05:22→09:08)
[2017-03-04 05:25] LABS: CKMB 2.2 NG/ML (0.5-3.6)
--- NOTE | 2017-03-04 06:30 | RADRPT ---
EXAM DATE/TIME: 03/04/2017 04:24 [place] COMPARISON: CHEST SINGLE AP, March 02, 2017, 15:05. INDICATIONS : Shortness of breath. MEDICAL HISTORY : Myocardial infarction. Congestive heart failure. Chronic obstructive pulmonary disease. Diabetes SURGICAL HISTORY : None. ENCOUNTER: Subsequent ACUITY: 1 week PAIN SCORE: Non-responsive. LOCATION: Bilateral chest FINDINGS: A single view of the chest demonstrates a moderate size left pleural effusion. Small right pleural ef fusion. The endotracheal, nasogastric tube and right-sided central venous catheter in good position. The cardiac silhouette remains enlarged.. Osseous structures are intact. CONCLUSION: Bilateral pleural effusions cardiomegaly persists. Tubes and catheters in good position. Jong Garcia MD on March 04, 2017 at 6:28 Board Certified Radiologist. This report was verified electronically.
[2017-03-04 07:16] LABS: ACANTHOCYTES 1+ (NORMAL); BANDS 7 % (0-6); MYELOCYTES 2 % (0-0); NEUTROPHIL # MANUAL DIFF 8.7 TH/MM3 (1.8-7.7); OVALOCYTES 1+ (NORMAL); PLATELET ESTIMATE SMEAR NORMAL (NORMAL); PLATELET MORPHOLOGY NORMAL (NORMAL); POLYS (SEG NEUTROPHILS) 78 % (16-70); SCAN/DIFF FINAL DIFF MANUAL; WBC DIFF SAMPLE 100
[2017-03-04 07:38] LABS: APTT (PATIENT) 44.2 SEC (24.3-30.1)
--- NOTE | 2017-03-04 08:26 | PD.CARD.PN ---
Subjective Subjective Remarks intubated, mechanically ventilated (Robert Marte) Objective Vital Signs / I&O Vital Signs Date Time Temp Pulse Resp B/P Pulse Ox O2 Delivery O2 Flow Rate FiO2 03/04/17 06:00 86 03/04/17 04:00 66 03/04/17 04:00 40 03/04/17 04:00 98.4 66 18 130/60 95 139/41 03/04/17 03:00 95 40 03/04/17 02:00 69 03/04/17 00:00 98.5 80 18 155/72 93 164/52 03/04/17 00:00 80 03/04/17 00:00 40 03/03/17 22:36 94 40 03/03/17 22:00 67 03/03/17 20:00 68 03/03/17 20:00 98.3 68 18 139/61 94 147/46 03/03/17 20:00 40 03/03/17 19:09 96 40 03/03/17 18:00 66 03/03/17 16:17 91 40 03/03/17 16:00 73 03/03/17 16:00 40 03/03/17 16:00 98.5 73 18 123/61 91 146/53 03/03/17 14:00 107 03/03/17 12:00 40 03/03/17 12:00 98.4 72 18 124/60 95 134/49 03/03/17 12:00 72 03/03/17 11:22 96 40 03/03/17 10:00 75 03/03/17 09:09 96 40 I/O 03/03/17 03/03/17 03/03/17 03/04/17 03/04/17 03/04/17 07:00 15:00 23:00 07:00 15:00 23:00 Intake Total 370 ml 288 ml 601 ml 660 ml Output Total 600 ml 425 ml 250 ml 1000 ml Balance -230 ml -137 ml 351 ml -340 ml Intake Oral 0 ml IV Total 310 ml 288 ml 469 ml 374 ml Tube Feeding 0 ml 72 ml 256 ml Other 60 ml 60 ml 30 ml Output Urine Total 600 ml 425 ml 250 ml 1000 ml Gastric Drainage Total 0 ml # Bowel Movements 1 1 Physical Exam GENERAL: Well-nourished, well-developed patient in no apparent distress. NECK: No JVD. No carotid bruit. CARDIOVASCULAR: Regular rate and rhythm. S1/S2 no murmur, rub, or gallop. RESPIRATORY: No accessory muscle use. Clear to auscultation. Breath sounds equal bilaterally. GASTROINTESTINAL: Abdomen soft, non-tender, nondistended. MUSCULOSKELETAL: Extremities without clubbing, cyanosis, or edema. Laboratory Laboratory Tests Test 03/03/17 03/04/17 03/04/17 03/04/17 14:40 01:15 03:45 07:00 Pleural Fluid pH 8.0 Pleural Fluid WBC 419 /MM3 Pleural Fluid RBC 109 /MM3 Pleural Fluid Neutrophils 45 % Pleural Fluid Lymphocytes 35 % Pleural Fluid Monocytes 17 % Pleural Fluid Histiocytes 3 % Pleural Fluid Other Cells 1 % Pleural Fluid Comment Pleural Fluid Total Protein 1.9 GM/DL Pleural Fluid LDH 87 U/L Pleural Fluid Glucose 124 MG/DL Pleural Fluid Amylase 8 U/L Activated Partial 43.2 SEC 44.2 SEC Thromboplast Time White Blood Count 10.0 TH/MM3 Red Blood Count 3.24 MIL/MM3 Hemoglobin 9.7 GM/DL Hematocrit 28.9 % Mean Corpuscular Volume 89.2 FL Mean Corpuscular Hemoglobin 30.0 PG Mean Corpuscular Hemoglobin 33.7 % Concent Red Cell Distribution Width 14.3 % Platelet Count 196 TH/MM3 Mean Platelet Volume 8.9 FL Neutrophils (%) (Auto) 89.4 % Lymphocytes (%) (Auto) 3.4 % Monocytes (%) (Auto) 7.0 % Eosinophils (%) (Auto) 0.0 % Basophils (%) (Auto) 0.2 % Neutrophils # (Auto) 9.0 TH/MM3 Lymphocytes # (Auto) 0.3 TH/MM3 Monocytes # (Auto) 0.7 TH/MM3 Eosinophils # (Auto) 0.0 TH/MM3 Basophils # (Auto) 0.0 TH/MM3 CBC Comment AUTO DIFF Differential Total Cells 100 Counted Neutrophils % (Manual) 78 % Band Neutrophils % 7 % Lymphocytes % 7 % Monocytes % 6 % Neutrophils # (Manual) 8.7 TH/MM3 Myelocytes 2 % Differential Comment FINAL DIFF MANUAL Platelet Estimate NORMAL Platelet Morphology Comment NORMAL Ovalocytes 1+ Acanthocytes 1+ Sodium Level 144 MEQ/L Potassium Level 3.9 MEQ/L Chloride Level 104 MEQ/L Carbon Dioxide Level 26.8 MEQ/L Anion Gap 13 MEQ/L Blood Urea Nitrogen 119 MG/DL Creatinine 3.70 MG/DL Estimat Glomerular Filtration 16 ML/MIN Rate Random Glucose 94 MG/DL Calcium Level 8.9 MG/DL Phosphorus Level 8.5 MG/DL Magnesium Level 3.0 MG/DL Total Bilirubin 0.4 MG/DL Aspartate Amino Transf 18 U/L (AST/SGOT) Alanine Aminotransferase 21 U/L (ALT/SGPT) Alkaline Phosphatase 53 U/L Total Creatine Kinase 502 U/L Creatine Kinase MB 2.2 NG/ML Creatine Kinase MB % 0.4 % Total Protein 5.2 GM/DL Albumin 2.7 GM/DL (Robert Marte) Assessment and Plan Problem List: (1) NSTEMI (non-ST elevated myocardial infarction) (2) Acute CHF (3) Shock (4) Atrial fibrillation Assessment and Plan Acute respiratory distress appears to be multifactorial. PNA, COPD, CHF CHF, acute systolic Cardiomyopathy - EF 25%. Severe PHTN NSTEMI ARF Sepsis At least moderate aortic stenosis. SBP high on my exam this morning ARF - monitor Cr., relatively unchanged on today's labs (Robert Marte) Assessment and Plan slow improvement vent settings FiO2 40%, PEEP 5. moving extremities and eyes but not following commands cont vent weaning trials SBP high. avoid BB for now due to h/o COPD and resp failure. avoid ERLIN due to Cr. will add hydralazine for now once extubated and more stable, he will eventually need LHC depending upon his Cr. (Jong Butts MD) Robert Marte Mar 04, 2017 08:26 Jong Butts MD Mar 04, 2017 08:41
[2017-03-04] MEDS: DOCUSATE SODIUM 100 MG CAP PO SCH ×2 (09:00→21:00)
[2017-03-04] MEDS: BENEPROTEIN POWDER 1 PACK G-TUBE SCH ×3 (09:00→18:00)
[2017-03-04] MEDS: SENNOSIDES SYRUP 8.8 MG/5 ML CUP PO SCH ×2 (09:00→21:00)
[2017-03-04] MEDS: CHLORHEXIDINE 0.12% (ORAL KIT) 15 ML CUP MT SCH ×2 (09:06→21:52)
[2017-03-04] MEDS: SODIUM CHLORIDE 0.9% FLUSH 10 ML FLUSH IV FLUSH SCH ×2 (09:06→21:51)
[2017-03-04] MEDS: AZITHROMYCIN INJ 500 MG in SODIUM CHLOR 0.9% 250 ML INJ 250 ML IV SCH (09:07)
[2017-03-04] MEDS: INSULIN DETEMIR 100 UNITS/ML VIAL SQ SCH ×2 (09:07→21:49)
[2017-03-04] MEDS: MULTIVITAMIN TAB PO SCH (09:08)
[2017-03-04] MEDS: PANTOPRAZOLE SODIUM 40 MG VIAL IV SCH (09:08)
[2017-03-04] MEDS: FOLIC ACID 1 MG TAB PO SCH (09:08)
[2017-03-04] MEDS: CALCIUM ACETATE 667 MG CAP PO SCH ×3 (09:08→18:07)
[2017-03-04] MEDS: LACTIC ACID (AMMONIUM LACTATE) 12% LOTION 225 GM BTL TOPICAL SCH ×2 (09:10→21:50)
[2017-03-04] MEDS: RESP: BUDESONIDE 0.5 MG/2 ML NEB NEB SCH ×2 (09:40→19:29)
[2017-03-04] MEDS: hydrALAZINE HCL 20 MG/ML VIAL IV PUSH SCH ×4 (09:49→21:50)
[2017-03-04] MEDS: MIDAZOLAM 100 MG/NS 100 ML DRIP Premix IV SCH (10:27)
[2017-03-04] MEDS: THIAMINE INJ 100 MG in SODIUM CHLORIDE 0.9% INJ 100 ML IV SCH (10:27)
--- NOTE | 2017-03-04 10:27 | HHI.NPPN ---
Subjective General Problems: Edema, Hypotension Renal Failure: Acute Interval History Remains intubated. Awake but not following commands. BP elevated. He had right sided thoracentesis yesterday. (Katina Park) Review of Systems General General Remarks unable to evaluate (Katina Park) Objective Data Data 03/03/17 03/04/17 19:00 07:00 Intake Total 288 ml 1261 ml Output Total 425 ml 1250 ml Balance -137 ml 11 ml IV Total 288 ml 843 ml Tube Feeding 328 ml Other 90 ml Output Urine Total 425 ml 1250 ml # Bowel Movements 1 Vital Signs Date Time Temp Pulse Resp B/P Pulse Ox O2 Delivery O2 Flow Rate FiO2 03/04/17 09:42 94 40 03/04/17 06:00 86 03/04/17 04:00 66 03/04/17 04:00 40 03/04/17 04:00 98.4 66 18 130/60 95 139/41 03/04/17 03:00 95 40 03/04/17 02:00 69 03/04/17 00:00 98.5 80 18 155/72 93 164/52 03/04/17 00:00 80 03/04/17 00:00 40 03/03/17 22:36 94 40 03/03/17 22:00 67 03/03/17 20:00 68 03/03/17 20:00 98.3 68 18 139/61 94 147/46 03/03/17 20:00 40 03/03/17 19:09 96 40 03/03/17 18:00 66 03/03/17 16:17 91 40 03/03/17 16:00 73 03/03/17 16:00 40 03/03/17 16:00 98.5 73 18 123/61 91 146/53 03/03/17 14:00 107 03/03/17 12:00 40 03/03/17 12:00 98.4 72 18 124/60 95 134/49 03/03/17 12:00 72 03/03/17 11:22 96 40 (Katina Park) -: 03/04/17 0345 03/04/17 0345 Microbiology 03/03/17 Gram Stain - Final, Resulted 03/03/17 Body Fluid Culture, Resulted Pending Imaging Last 72 hours Impressions Chest X-Ray 03/04/17 0600 Signed Impressions: Service Date/Time: Saturday, March 04, 2017 04:24 - CONCLUSION: Bilateral pleural effusions cardiomegaly persists. Tubes and catheters in good position. Jong Garcia MD Thoracentesis 03/03/17 0000 Signed Impressions: Service Date/Time: Friday, March 03, 2017 14:09 - CONCLUSION: Uncomplicated CT-guided right thoracentesis. Cash Cowan MD Chest X-Ray 03/02/17 0600 Signed Impressions: Service Date/Time: Thursday, March 02, 2017 03:58 - CONCLUSION: Tubes and catheters in good position. Large bilateral pleural effusions right greater left are unchanged. Jong Garcia MD Abdomen X-Ray 03/02/17 0600 Signed Impressions: Service Date/Time: Thursday, March 02, 2017 04:03 - CONCLUSION: Normal examination. The NG tube is entering the proximal stomach. Jong Garcia MD Chest X-Ray 03/02/17 0000 Signed Impressions: Service Date/Time: Thursday, March 02, 2017 15:05 - CONCLUSION: 1. Small bilateral pleural effusions with probable adjacent compressive atelectasis. 2. Cardiomegaly. 3. No pneumothorax. 4. Multiple tubes and lines are stable. 5. Minimal central pulmonary vascular congestion. Cash Cowan MD Chest CT 03/02/17 0000 Signed Impressions: Service Date/Time: Thursday, March 02, 2017 11:42 - CONCLUSION: Large bilateral pleural effusions and bibasilar consolidation and/or compressive collapse not present on the study from 2015. Travis Nguyen MD Tubes & Lines: Barrios Tubes & Lines Comment [place] catheter, Drip Comment heparin, versed, fentanyl, amiodarone (Katina Park) Physical Exam General Appearance: Well Developed, Well Nourished, Sleeping, Obese Appearance Remarks intubated, sedated but opens eyes, not following commands (Katina Park) Throat Throat Exam: Oral Mucosa [place] & Moist (Katina Park) Pulmonary Resp Exam: No Distress, Crackles, Decreased Bases, Diminished Breath Sounds Resp Remarks exp wheezing throughout (Katina Park) Cardiology CV Exam: Good Perfusion, Irregular CV Remarks rate controlled (Katina Park) Gastrointestinal/Abdomen GI Exam: Soft, Non-Tender, Bowel Sounds Present, Distended (Katina Park) Genitourinary Exam: Clear Urine (Katina Park) Musculoskeletal MS Exam: Joints Intact, Normal Tone, Unable to Ambulate (Katina Park) Integumentary Skin Exam: Clear, Warm, Dry, Intact (Katina Park) Extremeties Extremities Exam: Pedal Pulses Palpable, Moderate Edema (Katina Park) Neurologic Neuro Exam: Moving All Extremities, Unresponsive, Sedated (Katina Park) Assessment/Plan Assessment Summary: Hypotension, Diabetes Mellitus Problem List: (1) Acute renal failure superimposed on chronic kidney disease Plan: RAGHAVENDRA likely due to hypotension, renal hypoperfusion, may have progressed to ATN. renal function has improved slightly; BUN is higher which which may be due to steroids. he is non oliguric monitor edema, diuretics on hold continue phoslo, monitor phos periodically avoid nephrotoxins he is off pressors daily renal panel (2) NSTEMI (non-ST elevated myocardial infarction) Plan: Cardiology following. Unstable for catheterization at this time he is on heparin gtt converted to NSR, rate in 80s. Consider stopping amiodarone and converting to oral agent (3) CHF exacerbation Plan: worsened by acute WA. monitor fluid volume status , diuresis as needed/tolerated (4) Pneumonia Plan: Currently on zosyn, and Zithromax solumedrol dose decreased continue vent management, settings are 18/600/40/5 ween from vent when able, he has not tolerated CPAP as of yet all cultures are negative s/p thoracentesis 03/03, 1500 ml drained (5) Type 2 diabetes mellitus Plan: off insulin drip blood sugar has improved (Katina Park) Plan patient was seen and examined. Creatinine is better. BUN is higher, steroid dose reduced. No immediate indication for dialysis. Prognosis is guarded. (Pablo Miner MD ) Problem Qualifiers (1) CHF exacerbation: Qualified Code: I50.9 - Acute on chronic congestive heart failure, unspecified congestive heart failure type (2) Pneumonia: Qualified Code: J18.1 - Pneumonia of right lower lobe due to infectious organism Katina Park Mar 04, 2017 10:27 Pablo Miner MD Mar 04, 2017 18:21
[2017-03-04] MEDS ORDERED: PROPOFOL 1000 MG/100 ML INJ 100 ML ONE (11:12)
[2017-03-04] MEDS: HEPARIN-D5W INJ 250 ML IV SCH (11:44)
--- NOTE | 2017-03-04 12:29 | HHI.CCPN ---
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 Upon arrival to F pod discovered that patient was awake and normotensive, with sinus tachycardia in the 150s in severe respiratory distress. He had not lost a pulse but [facility] [employer] had been called to facilitate rapid evaluation and stabilization. 76-year-old male with past history of obesity, COPD, obstructive sleep apnea on CPAP, CHF, peripheral neuropathy, hypertension, diabetes, hyperlipidemia, obesity who receives medical care at the [facility]. He presented to [facility] emergency department 02/25/17 with falls and difficulty with balance. He also reported that he was having shortness of breath and cough for several days. Was not febrile in hospital. On the day of admission he had some chest pain across his chest. Troponins negative. He was treated for pneumonia with Rocephin and azithromycin. He was placed on steroids Solu-Medrol 60 mg IV every 6 hours. Received Lasix at about 6 PM on due to concern for volume overload. Echo had poor images but systolic function appeared reduced. Tonight he developed acutely worsening shortness of breath and Dr. Galicia presented to the emergency Department to evaluate him where he was found to be tachypneic and wheezing. He was given a neb and preparations were being made to place him on BiPAP. He was becoming less responsive and was looking upward when I arrived and respiratory was placing on Bipap. He was in extremis and it was felt he would need emergent intubation prior to transfer to ICU. He denied chest pain. He was preoxygenated on Bipap, did seem to become more alert and nodded that he agreed with proceeding with intubation. He was intubated in F pod and then transferred to [facility]. Upon arrival to [facility] he was in atrial fibrillation in the 130s. SBP was 90/50 then 64/40. Central line was placed and he converted to sinus tachycadia in 101-130s. Subsequently he was normotensive with MAP 71. He was also sedated with propofol during the hypotension, improved after transition to fentanyl drip. 02/27: PA catheter placed yesterday. PA catheter readings are more consistent distributive/septic shock with high cardiac output with low SVR. CO 10-11. CI 2.8 SVRI [id number]. D/W Dr Butts. Will hold off Flolan challenge at this time for high PA pressure- mean 59-60. After weaning pressors, PA mean pressure is about 40. Patient's hemodynamics have improved, vasopressin is off now, Levophed is at 4 mics per minute. Give Bumex 2 mg 1 on Bumex drip at 2 mg per hour per Dr. Miner 02/28: Afebrile. Arousable on the vent and moves 4 extremities spontaneously but doesn't follow commands. No bowel movement since admission. Currently nothing by mouth. Remains on low-dose vasopressors including vasopressin and Levophed 03/01: [place] Luisa catheter removed yesterday. Adequate urine output on Bumex drip at 1 mg an hour. Afebrile. Currently replaced potassium. 03/02: Afebrile. Bumex drip has been discontinued. Currently replaced potassium. Positive BM overnight. We'll attempt spontaneous breathing trials today. 03/03: Afebrile. Adequate urine output. Positive BM. Tolerating tube feeds. Heparin drip for thoracentesis. Eyes are open but not following commands. Continues on Versed and fentanyl drips. Subjective 03/04: Afebrile. Status post thoracentesis yesterday -1150 years transudative. Positive BM 1. Tolerating tube feeding. Hypertensive. Hydralazine added per cardiology.. Objective Vital Signs Date Time Temp Pulse Resp B/P Pulse Ox O2 Delivery O2 Flow Rate FiO2 03/04/17 12:05 95 50 03/04/17 10:00 138 03/04/17 08:00 97.1 18 133/62 146/45 Intake and Output 03/03/17 03/03/17 03/04/17 08:00 16:00 00:00 Intake Total 370 ml 288 ml 601 ml Output Total 600 ml 425 ml 250 ml Balance -230 ml -137 ml 351 ml Result Diagram: 03/04/17 0345 03/04/17 0345 Other Results Microbiology Date/Time Procedure Status Source Growth 03/03/17 14:40 Gram Stain - Final Resulted Fluid Pleural Fluid 03/03/17 14:40 Body Fluid Culture Resulted Fluid Pleural Fluid Pending Imaging Last Impressions Chest X-Ray 03/04/17 0600 Signed Impressions: Service Date/Time: Saturday, March 04, 2017 04:24 - CONCLUSION: Bilateral pleural effusions cardiomegaly persists. Tubes and catheters in good position. Jong Garcia MD Thoracentesis 03/03/17 0000 Signed Impressions: Service Date/Time: Friday, March 03, 2017 14:09 - CONCLUSION: Uncomplicated CT-guided right thoracentesis. Cash Cowan MD Abdomen X-Ray 03/02/17 0600 Signed Impressions: Service Date/Time: Thursday, March 02, 2017 04:03 - CONCLUSION: Normal examination. The NG tube is entering the proximal stomach. Jong Garcia MD Chest CT 03/02/17 0000 Signed Impressions: Service Date/Time: Thursday, March 02, 2017 11:42 - CONCLUSION: Large bilateral pleural effusions and bibasilar consolidation and/or compressive collapse not present on the study from 2015. Travis Nguyen MD Lower Extremity Ultrasound 02/27/17 0000 Signed Impressions: Service Date/Time: Monday, February 27, 2017 09:13 - CONCLUSION: Normal examination. Evaristo Massey MD Head CT 02/24/17 0000 Signed Impressions: Service Date/Time: Friday, February 24, 2017 18:59 - CONCLUSION: 1. No acute hemorrhage or mass effect. 2. Acute sinusitis in the left maxillary sinus. Raul Craig MD Cervical Spine MRI 02/24/17 0000 Signed Impressions: Service Date/Time: Friday, February 24, 2017 22:46 - CONCLUSION: 1. Small central protrusion at C4-5 without canal stenosis. 2. Small central protrusion at C3-4 with minimal extruded component. 3. Mild broad-based disc bulges at C5- 6 and C6-7 levels without canal stenosis. Neto Duenas MD Cervical Spine CT 02/24/17 0000 Signed Impressions: Service Date/Time: Friday, February 24, 2017 19:02 - CONCLUSION: 1. Moderate narrowing of left neural foramina at the C3-4 level secondary to hypertrophic change involving the facet joint. 2. Mild degenerative change at the C5-6 and C6-7 levels. 3. Mild disc osteophyte complex at C5-6 with mild narrowing of the neural foramina. Raul Craig MD Brain MRI 02/24/17 0000 Signed Impressions: Service Date/Time: Friday, February 24, 2017 22:46 - CONCLUSION: 1. No acute intracranial abnormality. 2. Left maxillary sinus disease. 3. No acute infarction. Neto Duenas MD Objective Remarks GENERAL: 56-year-old male, critically ill currently resting in bed in no acute distress SKIN: Warm and dry. Perfusing adequately HEAD: Atraumatic. Normocephalic. EYES: Pupils equal and round 3-4 mm and reactive bilaterally. No scleral icterus. No injection or drainage. ENT: Orotracheally intubated NECK: Trachea midline. Right Subclavian clean dry and intact CARDIOVASCULAR: RRR. S1, S2. No S4. Faint 1/6 systolic murmur right upper sternal border RESPIRATORY: Few faint crackles appreciated bilaterally. Left greater than right Symmetrical excursion. GASTROINTESTINAL: Abdomen obese, protuberant, small umbilical reducible hernia. Bowel sounds are hypoactive. Currently no voluntary guarding. MUSCULOSKELETAL: Extremities with chronic 2+ pitting bilateral lower extremity edema up to knee. Chronic venous stasis/lymphedema NEUROLOGICAL: Eyes are open. Positive corneal reflex. Positive gag. Moves all 4 extremity spontaneously but not following commands. Withdraws to pain upper and lower extremities bilaterally. A/P Assessment and Plan NEURO/PSYCH: Acute encephalopathy - secondary to hypercapnea and hypoxemia Peripheral neuropathy Allergic rhinitis Currently on Versed drip at 7 mg an hour and Fentanyl drip at 200 g an hour for sedation/analgesia while intubated Switching to propofol is very agitated currently. We'll attempt to wean off benzodiazepines Goal of RASS -2 Daily sedation vacation MRI brain 02/24 - no acute abnormality MRI C-spinesmall central protrusion at C3/C4 with mild extruded central spinal cord C4-C5 without canal stenosis with mild disc bulging C5/6 and C6/7 EEG 02/27 revealed moderate to severe encephalopathy. No epileptiform activity Questionable history of EtOH use/abuse. We'll continue on thiamine/folate and multivitamin today Check Neurontin level/2.3. Previously on 600 mg 3 times a day for shingles pain management. Currently on hold Holding Flonase twice a day/Zyrtec 5 mill grams daily. Resume as clinically indicated RESP: Acute hypoxemic and hypercapnic respiratory failure Acute COPD exacerbation History of asthma? Acute on chronic pulmonary artery hypertension Objective sleep apnea - noncompliant with CPAP History of tobacco abuse [facility] 15/1.2/ Ventilator bundle DuoNeb every 4 hours with albuterol every 2 hours when necessary Continue Pulmicort 0.5/2 one inhalation twice a day Solumedrol 20 milligrams every q12 to be weaned over the next several days For thoracentesis left-sided 03/05. Right thoracentesis 03/03 likely transudative. -1150 Home medication regimen is Symbicort 160/4.5 to press twice a day, Spiriva 18 inhalation daily and Ventolin 4 times a day with duo nebs aerosols for breakthrough every 4 hours when necessary According to records, noncompliant with CPAP for SEBASTIAN Airway edema noted particularly large arytenoid edema noted on intubation 02/26 with anterior airway. Intubated with Glidescope and 7.5 ETT. Cardiovascular: Shock, distributive/septic resolving Acute on chronic systolic heart failure EF 25-30% Moderate Moderate to severe TR NSTEMI Paroxysmal atrial fibrillation/flutter History of Hypertension Hyperlipidemia History of coronary artery disease Currently off all vaso pressors. PAC placed 02/26: Numbers at that time consistent with distributive shock (CI 2.8 , SVRI 1300). Currently cardiac index at 2.1. 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 Butts Continue IV heparin for NSTEMI and A Fib rate currently on hold secondary to thoracentesis. Resume 4 hours postthoracentesis Bumex 2 mg IV 1 02/27 and initiated Bumex infusion currently discontinued as of 03/03 Continue aspirin 81 mg daily Continue amiodarone drip at 0.5 mg a minute to transition to oral 400 milligrams by mouth twice a day Troponin peaked at 27. Left heart catheterization when clinically stable Continue atorvastatin 80 mg daily at bedtime for dyslipidemia Unable to use beta charles secondary due to shock. On Lopressor 200 mg daily at home. Other blood pressures include lisinopril 40 mg daily and HCTZ 12.5 mg daily. On hold due to acute kidney injury Started hydralazine [address] Butts Echo 02/27: - Systolic function was severely reduced 25% to 30%. Diffuse hypokinesis. -Aortic valve: moderate stenosis. Tricuspid valve: Moderate/severe regurgitation. SUZAN 70 mmHg GI: Constipation Glucerna 1.5 goal 55 cc an hour Protonix 40 mg IV daily Colace and Senokot twice a day for bowel regimen 1 BMs overnight : BPH Holding doxazosin 8 mg daily light of hypotension Maintain Barrios for accurate I's and O's in a critically ill patient/Bumex drip FEN/RENAL: Acute kidney injury/ATN Hypokalemia Monitor intake and output. Monitor electrolytes Bumex discontinued Nonoliguric. BUN continues to rise. Question steroid. Creatinine decreased to 3.7. ID: Acute community acquired pneumonia Septic shock Zosyn day #83 discontinue his Zithromax after 8 days. Single dose of vancomycin Microbiology: lood culture 2 setsno growth to date 02/25sputum - no growth 02/25urine Legionella and pneumococcal antigen negative 02/25influenza screen negative 02/26 - urine - no growth 02/26 - blood cultures 2 - no growth Likely de-escalate antibiotics next 24-48 hours HEME: Normocytic anemia No indication for transfusion of blood products at this time Continue IV heparin drip for A. fib/nonsustained ENDO: Poorly controlled diabetes mellitus - hemoglobin A1c of 8.6 Started Levemir 40 units twice a day with sliding scale insulin 4/moderate regimen. At home on Lantus 35 units twice a day and Novulin R 15 units 3 times a day with meals MSK Chronic lymphedema Osteoporosis/osteoarthritis Resume Lac-Hydrin twice a day for lower extremity lymphedema 02/27 venous Dopplers showed no DVT Hold Risedronate 35 mg mg weekly for osteoporosis PROPH: Protonix 40 mg IV daily for stress ulcer prophylaxis. Heparin drip as per above ACCESS: Right subclavian central venous line placed 02/26 #7 Right IJ Cordis/day #4 discontinued 03/02 Full code Critical Care: The total critical care time was 35 minutes. Time to perform other separately billable procedures was not included in the critical care time. Discussed with at bedside. Care plan discussed all questions answered -> .Ramo Danielson MD Mar 04, 2017 12:29
--- NOTE | 2017-03-04 13:21 | RADRPT ---
EXAM DATE/TIME: 03/04/2017 12:12 [facility] COMPARISON: CHEST SINGLE AP, March 04, 2017, 4:24. INDICATIONS : Short of breath MEDICAL HISTORY : Chronic obstructive pulmonary disease. Congestive heart failure. Myocardial infarction. SURGICAL HISTORY : None. ENCOUNTER: Subsequent ACUITY: 1 week PAIN SCORE: Non-responsive. LOCATION: Bilateral chest FINDINGS: Endotracheal tube tip well above the gwendolyn. Right central line tip projects over the distal superio r vena cava. The gastric tube tip is above the level of the hemidiaphragm approximately 3.4 cm and t he side port of the gastric tube is more than 12 cm above the diaphragm. There is persisting consoli dation in the left lower lung with complete loss of delineation left hemidiaphragm. Consolidation me dial right lower lung is also stable. Meniscal interface in the lower lungs characteristic of bilate ral pleural effusions. CONCLUSION: 1. The gastric tube tip and side-port are intrathoracic and the tube needs to be advanced at least 15 cm. 2. Stable bilateral lower lung consolidation and bilateral pleural effusions. Adams Powell MD on March 04, 2017 at 13:17 Board Certified Radiologist. This report was verified electronically.
[2017-03-04 13:24] LABS: BLOOD GAS CARBOXYHEMOGLOBIN 1.4 % (0-4); BLOOD GAS HCO3 25 mmol/L (22-26); BLOOD GAS O2 HGB SATURATION 96 % (90-100); BLOOD GAS OXYGEN CONTENT 15.8 Vol % (12.0-20.0); BLOOD GAS PCO2 43 mmHg (38-42); BLOOD GAS PO2 113 mmHg (61-120); BLOOD GAS TOTAL HGB 11.6 G/DL (12.0-16.0); CRITICAL VALUE NO; OXYGEN DEVICE VENTILATOR
[2017-03-04 13:25] LABS: DRAW SITE ART LINE; STAT NO; TEMP CORR TO 50
[2017-03-04] MEDS: PIPERACIL-TAZO 2.25 GM PREMIX 50 ML IV SCH ×2 (14:01→18:05)
[2017-03-04 14:07] LABS: HEMATOCRIT 29.4 % (39.0-51.0); MEAN CELL VOLUME 90.1 FL (80.0-100.0); MEAN CORPUSCULAR HEMOGLOBIN 28.8 PG (27.0-34.0); MEAN CORPUSCULAR HGB CONC 31.9 % (32.0-36.0); PLATELET COUNT 198 TH/MM3 (150-450); RED BLOOD COUNT 3.26 MIL/MM3 (4.50-5.90); RED CELL DISTRIBUTION WIDTH 14.4 % (11.6-17.2); REVIEW FLAG FINAL; WHITE BLOOD COUNT 11.8 TH/MM3 (4.0-11.0)
[2017-03-04 14:16] LABS: APTT (PATIENT) 46.7 SEC (24.3-30.1); PROTHROMBIN TIME - PATIENT 11.4 SEC (9.8-11.6)
--- NOTE | 2017-03-04 14:21 | RADRPT ---
EXAM DATE/TIME: 03/04/2017 13:27 [facility] COMPARISON: CHEST SINGLE AP, March 04, 2017, 12:12. INDICATIONS : NG tube advancement. MEDICAL HISTORY : None. SURGICAL HISTORY : None. ENCOUNTER: Subsequent ACUITY: 1 week PAIN SCORE: Non-responsive. LOCATION: Abdomen FINDINGS: a single view centered to the upper abdomen demonstrates the tip and side-port of the gastric tube p rojected within the stomach. Consolidation left lower lung. CONCLUSION: NG tube tip and side-port within the stomach. Adams Powell MD on March 04, 2017 at 14:19 Board Certified Radiologist. This report was verified electronically.
[2017-03-04] MEDS: PROPOFOL 1000 MG/100 ML INJ 100 ML IV SCH ×2 (16:29→22:23)
[2017-03-04] MEDS: ASPIRIN EC 81 MG TABEC PO SCH (21:00)
[2017-03-04] MEDS: AMIODARONE 200 MG TAB PO SCH (21:48)
[2017-03-04] MEDS: ATORVASTATIN 80 MG TAB PO SCH (21:49)
[2017-03-05] VITALS (18 sets, daily range): BP systolic 96–142; BP diastolic 44–61; PULSE 78–112; RESP 15–17; TEMP 97.8–98.4; O2SAT 93–100
[2017-03-05] MEDS: PIPERACIL-TAZO 2.25 GM PREMIX 50 ML IV SCH ×4 (00:59→18:09)
[2017-03-05] MEDS: hydrALAZINE HCL 20 MG/ML VIAL IV PUSH SCH ×6 (01:00→21:05)
[2017-03-05] MEDS: CHLORHEXIDINE GLUCONATE 2 % 1 PACK (2 CLOTHS) TOP SCH (03:03)
[2017-03-05] MEDS: PROPOFOL 1000 MG/100 ML INJ 100 ML IV SCH ×3 (03:03→18:09)
[2017-03-05] MEDS: RESP: ALBUTEROL 2.5 MG/IPRATROPIUM 0.5 MG NEB (SCH) INH ×6 (03:32→23:47)
[2017-03-05] MEDS: INSULIN NovoLIN REGULAR SUPPLEMENTAL SCALE SQ SCH ×6 (04:00→20:00)
[2017-03-05 05:22] LABS: AUTOMATED NEUTROPHIL # 14.9 TH/MM3 (1.8-7.7); BASOPHIL % 0.2 % (0.0-2.0); EOSINOPHIL % 0.1 % (0.0-4.0); HEMATOCRIT 30.9 % (39.0-51.0); LYMPHOCYTE # 0.3 TH/MM3 (1.0-4.8); MEAN CELL VOLUME 90.2 FL (80.0-100.0); MEAN CORPUSCULAR HGB CONC 33.3 % (32.0-36.0); MONO % 5.9 % (0.0-8.0); NEUT % 91.8 % (16.0-70.0); PLATELET COUNT 250 TH/MM3 (150-450); RED BLOOD COUNT 3.43 MIL/MM3 (4.50-5.90); RED CELL DISTRIBUTION WIDTH 14.6 % (11.6-17.2); WHITE BLOOD COUNT 16.3 TH/MM3 (4.0-11.0)
[2017-03-05 05:24] LABS: APTT (PATIENT) 45.5 SEC (24.3-30.1); HEMO FLAGS AUTO DIFF
[2017-03-05 05:27] LABS: BICARBONATE 25.7 MEQ/L (21.0-32.0); MAGNESIUM 3.4 MG/DL (1.5-2.5); POTASSIUM 4.4 MEQ/L (3.5-5.1)
[2017-03-05] MEDS: METOCLOPRAMIDE HCL 10 MG/2 ML VIAL IV PUSH SCH ×3 (05:34→21:07)
[2017-03-05] MEDS: ARTIFICIAL TEARS OPTH SOLN 15 ML BTL EACH EYE SCH ×3 (05:34→21:06)
[2017-03-05 05:43] LABS: INDIRECT BILIRUBIN 0.3 MG/DL (0.0-0.8); TOTAL BILIRUBIN ADULT 0.5 MG/DL (0.2-1.0)
[2017-03-05 07:04] LABS: BANDS 1 % (0-6); EOSINOPHILS 1 % (0-4); MYELOCYTES 2 % (0-0); NEUTROPHIL # MANUAL DIFF 14.8 TH/MM3 (1.8-7.7); POLYS (SEG NEUTROPHILS) 88 % (16-70); WBC DIFF SAMPLE 100
[2017-03-05 07:05] LABS: PLATELET ESTIMATE SMEAR NORMAL (NORMAL); PLATELET MORPHOLOGY NORMAL (NORMAL); SCAN/DIFF FINAL DIFF MANUAL
[2017-03-05] MEDS: RESP: BUDESONIDE 0.5 MG/2 ML NEB NEB SCH ×2 (07:27→19:21)
[2017-03-05] MEDS ORDERED: DEXMEDETOMIDINE INJ 200 MCG in SODIUM CHLORIDE 0.9% INJ 50 ML IV SCH (08:00)
--- NOTE | 2017-03-05 08:06 | PD.CARD.PN ---
Subjective Subjective Remarks intubated, mechanically intubated (Robert Marte) Objective Vital Signs / I&O Vital Signs Date Time Temp Pulse Resp B/P Pulse Ox O2 Delivery O2 Flow Rate FiO2 03/05/17 07:28 96 40 03/05/17 06:00 104 03/05/17 04:15 96 40 03/05/17 04:00 97 03/05/17 04:00 40 03/05/17 04:00 98.4 97 15 121/56 96 142/49 03/05/17 02:00 112 03/05/17 00:41 97 40 03/05/17 00:00 78 03/05/17 00:00 40 03/05/17 00:00 98.1 78 16 107/53 97 137/44 03/04/17 22:00 79 03/04/17 20:00 82 03/04/17 20:00 40 03/04/17 20:00 98.2 82 18 154/69 96 147/46 03/04/17 19:45 96 40 03/04/17 18:00 65 03/04/17 17:49 100 50 03/04/17 16:00 65 03/04/17 16:00 50 03/04/17 16:00 97.5 65 15 108/53 99 125/44 03/04/17 14:00 69 03/04/17 12:05 95 50 03/04/17 12:00 75 03/04/17 12:00 98.0 75 18 111/39 95 101/52 03/04/17 12:00 50 03/04/17 10:00 138 03/04/17 09:42 94 40 I/O 03/04/17 03/04/17 03/04/17 03/05/17 03/05/17 03/05/17 07:00 15:00 23:00 07:00 15:00 23:00 Intake Total 660 ml 1329 ml 1162 ml 668 ml Output Total 1000 ml 450 ml 300 ml 175 ml Balance -340 ml 879 ml 862 ml 493 ml Intake Oral 0 ml IV Total 374 ml 805 ml 682 ml 519 ml Tube Feeding 256 ml 464 ml 450 ml 119 ml Other 30 ml 60 ml 30 ml 30 ml Output Urine Total 1000 ml 450 ml 300 ml 175 ml # Bowel Movements 1 2 1 Physical Exam GENERAL: Well-nourished, well-developed patient in no apparent distress. NECK: No JVD. No carotid bruit. CARDIOVASCULAR: Regular rate and rhythm. S1/S2 no murmur, rub, or gallop. RESPIRATORY: No accessory muscle use. mild rhonchi to auscultation. Breath sounds equal bilaterally. GASTROINTESTINAL: Abdomen soft, non-tender, nondistended. MUSCULOSKELETAL: Extremities without clubbing, cyanosis, or edema. Laboratory Laboratory Tests Test 03/04/17 03/04/17 03/04/17 03/05/17 12:53 13:13 13:53 04:25 Prothrombin Time 11.4 SEC Prothromb Time International 1.0 RATIO Ratio Activated Partial 46.7 SEC 45.5 SEC Thromboplast Time Blood Gas Puncture Site ART LINE Blood Gas Patient Temperature 50 Blood Gas HCO3 25 mmol/L Blood Gas Base Excess 0.0 mmol/L Blood Gas Oxygen Saturation 96 % Arterial Blood pH 7.37 Arterial Blood Partial 43 mmHg Pressure CO2 Arterial Blood Partial 113 mmHg Pressure O2 Arterial Blood Oxygen Content 15.8 Vol % Arterial Blood 1.4 % Carboxyhemoglobin Arterial Blood Methemoglobin 1.0 % Blood Gas Hemoglobin 11.6 G/DL Oxygen Delivery Device VENTILATOR Blood Gas Ventilator Setting White Blood Count 11.8 TH/MM3 16.3 TH/MM3 Red Blood Count 3.26 MIL/MM3 3.43 MIL/MM3 Hemoglobin 9.4 GM/DL 10.3 GM/DL Hematocrit 29.4 % 30.9 % Mean Corpuscular Volume 90.1 FL 90.2 FL Mean Corpuscular Hemoglobin 28.8 PG 30.0 PG Mean Corpuscular Hemoglobin 31.9 % 33.3 % Concent Red Cell Distribution Width 14.4 % 14.6 % Platelet Count 198 TH/MM3 250 TH/MM3 Mean Platelet Volume 8.6 FL 9.1 FL Procalcitonin 0.15 ng/mL Neutrophils (%) (Auto) 91.8 % Lymphocytes (%) (Auto) 2.0 % Monocytes (%) (Auto) 5.9 % Eosinophils (%) (Auto) 0.1 % Basophils (%) (Auto) 0.2 % Neutrophils # (Auto) 14.9 TH/MM3 Lymphocytes # (Auto) 0.3 TH/MM3 Monocytes # (Auto) 1.0 TH/MM3 Eosinophils # (Auto) 0.0 TH/MM3 Basophils # (Auto) 0.0 TH/MM3 CBC Comment AUTO DIFF Differential Total Cells 100 Counted Neutrophils % (Manual) 88 % Band Neutrophils % 1 % Lymphocytes % 3 % Monocytes % 5 % Eosinophils % 1 % Neutrophils # (Manual) 14.8 TH/MM3 Myelocytes 2 % Differential Comment FINAL DIFF MANUAL Platelet Estimate NORMAL Platelet Morphology Comment NORMAL Sodium Level 141 MEQ/L Potassium Level 4.4 MEQ/L Chloride Level 103 MEQ/L Carbon Dioxide Level 25.7 MEQ/L Anion Gap 12 MEQ/L Blood Urea Nitrogen 143 MG/DL Creatinine 4.58 MG/DL Estimat Glomerular Filtration 13 ML/MIN Rate Random Glucose 124 MG/DL Calcium Level 8.8 MG/DL Phosphorus Level 9.4 MG/DL Magnesium Level 3.4 MG/DL Total Bilirubin 0.5 MG/DL Direct Bilirubin 0.2 MG/DL Indirect Bilirubin 0.3 MG/DL Aspartate Amino Transf 20 U/L (AST/SGOT) Alanine Aminotransferase 21 U/L (ALT/SGPT) Alkaline Phosphatase 63 U/L Lactate Dehydrogenase 305 U/L Total Protein 5.8 GM/DL Albumin 2.9 GM/DL (Robert Marte) Assessment and Plan Problem List: (1) NSTEMI (non-ST elevated myocardial infarction) (2) Acute CHF (3) Shock (4) Atrial fibrillation Assessment and Plan Acute respiratory distress appears to be multifactorial. PNA, COPD, CHF. FIO2 40% CHF, acute systolic Cardiomyopathy - EF 25%. Severe PHTN NSTEMI Sepsis At least moderate aortic stenosis. HTN - well controlled ARF - worsening, dehydration NSVT - 7 beats yesterday now on amiodarone (Robert Marte) Assessment and Plan for L thoracentesis today continue supportive care worsening renal function NSVT s/p NSTEMI, now on amio (Jong Butts MD) Robert Marte Mar 05, 2017 08:06 Jong Butts MD Mar 05, 2017 08:47
--- NOTE | 2017-03-05 08:08 | HHI.CCPN ---
Subjective Remarks/Hospital Course Per overnight supervisor packing 02/26/17 Responded to [facility] overhead. Upon arrival to F pod discovered that patient was awake and normotensive, with sinus tachycardia in the 150s in severe respiratory distress. He had not lost a pulse but [facility] had been called to facilitate rapid evaluation and stabilization. 76-year-old male with past history of obesity, COPD, obstructive sleep apnea on CPAP, CHF, peripheral neuropathy, hypertension, diabetes, hyperlipidemia, obesity who receives medical care at the [facility]. He presented to [facility] emergency department 02/25/17 with falls and difficulty with balance. He also reported that he was having shortness of breath and cough for several days. Was not febrile in hospital. On the day of admission he had some chest pain across his chest. Troponins negative. He was treated for pneumonia with Rocephin and azithromycin. He was placed on steroids Solu-Medrol 60 mg IV every 6 hours. Received Lasix at about 6 PM on due to concern for volume overload. Echo had poor images but systolic function appeared reduced. Tonight he developed acutely worsening shortness of breath and Dr. Galicia presented to the emergency Department to evaluate him where he was found to be tachypneic and wheezing. He was given a neb and preparations were being made to place him on BiPAP. He was becoming less responsive and was looking upward when I arrived and respiratory was placing on Bipap. He was in extremis and it was felt he would need emergent intubation prior to transfer to ICU. He denied chest pain. He was preoxygenated on Bipap, did seem to become more alert and nodded that he agreed with proceeding with intubation. He was intubated in F pod and then transferred to [facility]. Upon arrival to [facility] he was in atrial fibrillation in the 130s. SBP was 90/50 then 64/40. Central line was placed and he converted to sinus tachycadia in 101-130s. Subsequently he was normotensive with MAP 71. He was also sedated with propofol during the hypotension, improved after transition to fentanyl drip. 02/27: PA catheter placed yesterday. PA catheter readings are more consistent distributive/septic shock with high cardiac output with low SVR. CO 10-11. CI 2.8 SVRI [id number]. D/W Dr Butts. Will hold off Flolan challenge at this time for high PA pressure- mean 59-60. After weaning pressors, PA mean pressure is about 40. Patient's hemodynamics have improved, vasopressin is off now, Levophed is at 4 mics per minute. Give Bumex 2 mg 1 on Bumex drip at 2 mg per hour per Dr. Miner 02/28: Afebrile. Arousable on the vent and moves 4 extremities spontaneously but doesn't follow commands. No bowel movement since admission. Currently nothing by mouth. Remains on low-dose vasopressors including vasopressin and Levophed 03/01: [place] Luisa catheter removed yesterday. Adequate urine output on Bumex drip at 1 mg an hour. Afebrile. Currently replaced potassium. 03/02: Afebrile. Bumex drip has been discontinued. Currently replaced potassium. Positive BM overnight. We'll attempt spontaneous breathing trials today. 03/03: Afebrile. Adequate urine output. Positive BM. Tolerating tube feeds. Heparin drip for thoracentesis. Eyes are open but not following commands. Continues on Versed and fentanyl drips. 03/04: Afebrile. Status post thoracentesis yesterday -1150 years transudative. Positive BM 1. Tolerating tube feeding. Hypertensive. Hydralazine added per cardiology. Subjective 03/05: Patient remains intubated sedated. Bedside ultrasound shows Moderate left pleural effusion. Agitated on lightening sedation Objective Vital Signs Date Time Temp Pulse Resp B/P Pulse Ox O2 Delivery O2 Flow Rate FiO2 03/05/17 07:28 96 40 03/05/17 06:00 104 03/05/17 04:00 98.4 15 121/56 142/49 Intake and Output 03/04/17 03/04/17 03/05/17 08:00 16:00 00:00 Intake Total 660 ml 1329 ml 1162 ml Output Total 1000 ml 450 ml 300 ml Balance -340 ml 879 ml 862 ml Result Diagram: 03/05/17 0425 03/05/17 0425 Other Results Laboratory Tests Test 03/04/17 13:13 Blood Gas Puncture Site ART LINE Blood Gas Patient Temperature 50 Blood Gas HCO3 25 mmol/L (22-26) Blood Gas Base Excess 0.0 mmol/L (-2-2) Blood Gas Oxygen Saturation 96 % (90-100) Arterial Blood pH 7.37 (7.380-7.420) Arterial Blood Partial 43 mmHg (38-42) Pressure CO2 Arterial Blood Partial 113 mmHg Pressure O2 (61-120) Arterial Blood Oxygen Content 15.8 Vol % (12.0-20.0) Arterial Blood 1.4 % (0-4) Carboxyhemoglobin Arterial Blood Methemoglobin 1.0 % (0-2) Blood Gas Hemoglobin 11.6 G/DL (12.0-16.0) Oxygen Delivery Device VENTILATOR Blood Gas Ventilator Setting Imaging Last Impressions Chest X-Ray 03/04/17 0600 Signed Impressions: Service Date/Time: Saturday, March 04, 2017 04:24 - CONCLUSION: Bilateral pleural effusions cardiomegaly persists. Tubes and catheters in good position. Jong Garcia MD Thoracentesis 03/03/17 0000 Signed Impressions: Service Date/Time: Friday, March 03, 2017 14:09 - CONCLUSION: Uncomplicated CT-guided right thoracentesis. Cash Cowan MD Abdomen X-Ray 03/02/17 0600 Signed Impressions: Service Date/Time: Thursday, March 02, 2017 04:03 - CONCLUSION: Normal examination. The NG tube is entering the proximal stomach. Jong Garcia MD Chest CT 03/02/17 0000 Signed Impressions: Service Date/Time: Thursday, March 02, 2017 11:42 - CONCLUSION: Large bilateral pleural effusions and bibasilar consolidation and/or compressive collapse not present on the study from 2014. K. Nitish Nguyen MD Lower Extremity Ultrasound 02/27/17 0000 Signed Impressions: Service Date/Time: Monday, February 27, 2017 09:13 - CONCLUSION: Normal examination. Evaristo Massey MD Head CT 02/24/17 0000 Signed Impressions: Service Date/Time: Friday, February 24, 2017 18:59 - CONCLUSION: 1. No acute hemorrhage or mass effect. 2. Acute sinusitis in the left maxillary sinus. Raul Craig MD Cervical Spine MRI 02/24/17 0000 Signed Impressions: Service Date/Time: Friday, February 24, 2017 22:46 - CONCLUSION: 1. Small central protrusion at C4-5 without canal stenosis. 2. Small central protrusion at C3-4 with minimal extruded component. 3. Mild broad-based disc bulges at C5- 6 and C6-7 levels without canal stenosis. Neto Duenas MD Cervical Spine CT 02/24/17 0000 Signed Impressions: Service Date/Time: Friday, February 24, 2017 19:02 - CONCLUSION: 1. Moderate narrowing of left neural foramina at the C3-4 level secondary to hypertrophic change involving the facet joint. 2. Mild degenerative change at the C5-6 and C6-7 levels. 3. Mild disc osteophyte complex at C5-6 with mild narrowing of the neural foramina. Raul Craig MD Brain MRI 02/24/17 0000 Signed Impressions: Service Date/Time: Friday, February 24, 2017 22:46 - CONCLUSION: 1. No acute intracranial abnormality. 2. Left maxillary sinus disease. 3. No acute infarction. Neto Duenas MD Objective Remarks GENERAL: 56-year-old male, critically ill currently intubated sedated SKIN: Warm and dry. Perfusing adequately HEAD: Atraumatic. Normocephalic. EYES: Pupils equal and round 3-4 mm and reactive bilaterally. No scleral icterus. No injection or drainage. ENT: Orotracheally intubated NECK: Trachea midline. Right Subclavian clean dry and intact CARDIOVASCULAR: RRR. S1, S2. No S4. Faint 1/6 systolic murmur right upper sternal border RESPIRATORY: Few faint crackles appreciated bilaterally. Left greater than right Symmetrical excursion. L moderate pleural effusion GASTROINTESTINAL: Abdomen obese, protuberant, small umbilical reducible hernia. Bowel sounds are hypoactive. Currently no voluntary guarding. MUSCULOSKELETAL: Extremities with chronic 2+ pitting bilateral lower extremity edema up to knee. Chronic venous stasis/lymphedema NEUROLOGICAL: Eyes are open. Positive corneal reflex. Positive gag. Moves all 4 extremity spontaneously but not following commands. Withdraws to pain upper and lower extremities bilaterally. Urinary Catheter: Yes Assessment to: Continue A/P Assessment and Plan NEURO/PSYCH: Acute encephalopathy - secondary to hypercapnia and hypoxemia Peripheral neuropathy Allergic rhinitis Currently on propofol and Fentanyl. Precedex to facilitate ventilator weaning Goal of RASS -2. Daily sedation vacation MRI brain 02/24 - no acute abnormality MRI C-spinesmall central protrusion at C3/C4 with mild extruded central spinal cord C4-C5 without canal stenosis with mild disc bulging C5/6 and C6/7 EEG 02/27 revealed moderate to severe encephalopathy. No epileptiform activity Questionable history of EtOH use/abuse. We'll continue on thiamine/folate and multivitamin today Check Neurontin level/2.3. Previously on 600 mg 3 times a day for shingles pain management. Currently on hold Holding Flonase twice a day/Zyrtec 5 mill grams daily. Resume as clinically indicated RESP: Acute hypoxemic and hypercapnic respiratory failure Acute COPD exacerbation Bilateral large pl effusions History of asthma? Acute on chronic pulmonary artery hypertension Objective sleep apnea - noncompliant with CPAP History of tobacco abuse PRVC 15/1.2/. Ventilator bundle DuoNeb every 4 hours with albuterol every 2 hours when necessary Continue Pulmicort 0.5/2 one inhalation twice a day Solumedrol 20 milligrams every q12 to be weaned over the next several days Plan for thoracentesis left-sided 03/05. Right thoracentesis 03/03 likely transudative. -1150 Home medication regimen is Symbicort 160/4.5 to press twice a day, Spiriva 18 inhalation daily and Ventolin 4 times a day with duo nebs aerosols for breakthrough every 4 hours when necessary According to records, noncompliant with CPAP for SEBASTIAN Airway edema noted particularly large arytenoid edema noted on intubation 02/26 with anterior airway. Intubated with Glidescope and 7.5 ETT. Cardiovascular: Shock, distributive/septic resolving Acute on chronic systolic heart failure EF 25-30% Moderate Moderate to severe TR NSTEMI Paroxysmal atrial fibrillation/flutter History of Hypertension Hyperlipidemia History of coronary artery disease Currently off all vaso pressors. PAC placed 02/26: Numbers at that time consistent with distributive shock (CI 2.8 , SVRI 1300). Cardiac index at 2.1. Cardiac output 5.2 and SVR 1250 this could be possibly be vaso constrictive/late sepsis versus effects of diuresis It is unclear whether pulmonary hypertension is secondary to left heart failure , or is it secondary to obstructive sleep apnea and COPD Previous supervisor packing was unable to do transpulmonary gradient secondary to unable to wedge balloon [place] Luisa catheter removed 02/[address] Butts IV heparin for NSTEMI and A Fib rate currently on hold for thoracentesis. Resume 4 hours postthoracentesis Bumex 2 mg IV 1 02/27 and initiated Bumex infusion currently discontinued as of 03/03 Continue aspirin 81 mg daily-held for thoracentesis Continue amiodarone 400 milligrams by mouth twice a day Troponin peaked at 27. Left heart catheterization when clinically stable Continue atorvastatin 80 mg daily at bedtime for dyslipidemia Unable to use beta charles secondary due to shock. On Lopressor 200 mg daily at home. Other blood pressures include lisinopril 40 mg daily and HCTZ 12.5 mg daily. On hold due to acute kidney injury Started hydralazine 20 every 4 per Minor Echo 02/27: - Systolic function was severely reduced 25% to 30%. Diffuse hypokinesis. -Aortic valve: moderate stenosis. Tricuspid valve: Moderate/severe regurgitation. SUZAN 70 mmHg GI: Constipation Glucerna 1.5 goal 55 cc an hour Protonix 40 mg IV daily Colace and Senokot twice a day for bowel regimen Having BM : BPH Holding doxazosin 8 mg daily light of hypotension Maintain Barrios for accurate I's and O's in a critically ill patient FEN/RENAL: Acute kidney injury/ATN Hypokalemia Monitor intake and output. Monitor electrolytes Bumex discontinued Nonoliguric. BUN/creat continues to rise 143/4.5 today. Will d/w nephrology ID: Acute community acquired pneumonia Septic shock Continue Zosyn. discontinue his Zithromax after 8 days. Microbiology: lood culture 2 setsno growth to date 02/25sputum - no growth 02/25urine Legionella and pneumococcal antigen negative 02/25influenza screen negative 02/26 - urine - no growth 02/26 - blood cultures 2 - no growth Likely de-escalate antibiotics next 24-48 hours HEME: Normocytic anemia No indication for transfusion of blood products at this time Continue IV heparin drip for A. fib/nonsustained-now on hold for thoracentesis ENDO: Poorly controlled diabetes mellitus - hemoglobin A1c of 8.6 Levemir 40 units twice a day with sliding scale insulin 4/moderate regimen. At home on Lantus 35 units twice a day and Novulin R 15 units 3 times a day with meals MSK Chronic lymphedema Osteoporosis/osteoarthritis Lac-Hydrin twice a day for lower extremity lymphedema 02/27 venous Dopplers showed no DVT Hold Risedronate 35 mg mg weekly for osteoporosis PROPH: Protonix 40 mg IV daily for stress ulcer prophylaxis. Heparin drip as per above ACCESS: Right subclavian central venous line placed 02/26 #8 Right IJ Cordis/day #4 discontinued 03/02 Full code Critical Care: The total critical care time was 40 minutes. Time to perform other separately billable procedures was not included in the critical care time. Dr Almaraz discussed with at bedside. Care plan discussed all questions answered ->.Tangela Eisenberg MD Mar 05, 2017 08:08
[2017-03-05 08:12] LABS: APTT (PATIENT) 27.4 SEC (24.3-30.1)
[2017-03-05] MEDS ORDERED: SODIUM CHLOR 0.9% 1000 ML INJ 1,000 ML IV PRN ×2 (08:26)
[2017-03-05] MEDS ORDERED: ACETAMINOPHEN 325 MG TAB PO PRN (08:30)
[2017-03-05] MEDS ORDERED: diphenhydrAMINE HCL 25 MG CAP PO PRN (08:30)
[2017-03-05] MEDS: fentaNYL 2,500 MCG/NS 250 ML IV SCH ×2 (08:30→22:29)
[2017-03-05] MEDS ORDERED: GELATIN 12 MM/7 MM FOAM TOP PRN (08:30)
[2017-03-05] MEDS ORDERED: SODIUM CHLORIDE 0.9% FLUSH 10 ML FLUSH IV FLUSH PRN (08:30)
[2017-03-05] MEDS ORDERED: HEPARIN SODIUM - IV 10,000 UNITS/10 ML VIAL IVF PRN (08:30)
[2017-03-05] MEDS ORDERED: cloNIDine HCL 0.1 MG TAB PO PRN (08:30)
[2017-03-05] MEDS ORDERED: NITROGLYCERIN 0.4 MG SL 25 TABS/BTL SL PRN (08:30)
[2017-03-05] MEDS ORDERED: ONDANSETRON HCL 4 MG/2 ML VIAL IV PRN (08:30)
--- NOTE | 2017-03-05 08:32 | HHI.NPPN ---
Subjective General Problems: Edema, Hypotension Renal Failure: Acute Interval History patient's renal function is worse. To have thoracentesis today. Discussed with Dr. Pederson. Remains intubated. On Amiodarone drip. Not on pressors. Patient's renal function is worse. Review of Systems General General Remarks unable to evaluate Objective Data Data 03/04/17 03/05/17 19:00 07:00 Intake Total 1329 ml 1830 ml Output Total 450 ml 475 ml Balance 879 ml 1355 ml Intake Oral 0 ml IV Total 805 ml 1201 ml Tube Feeding 464 ml 569 ml Other 60 ml 60 ml Output Urine Total 450 ml 475 ml # Bowel Movements 1 3 Vital Signs Date Time Temp Pulse Resp B/P Pulse Ox O2 Delivery O2 Flow Rate FiO2 03/05/17 07:28 96 40 03/05/17 06:00 104 03/05/17 04:15 96 40 03/05/17 04:00 97 03/05/17 04:00 40 03/05/17 04:00 98.4 97 15 121/56 96 142/49 03/05/17 02:00 112 03/05/17 00:41 97 40 03/05/17 00:00 78 03/05/17 00:00 40 03/05/17 00:00 98.1 78 16 107/53 97 137/44 03/04/17 22:00 79 03/04/17 20:00 82 03/04/17 20:00 40 03/04/17 20:00 98.2 82 18 154/69 96 147/46 03/04/17 19:45 96 40 03/04/17 18:00 65 03/04/17 17:49 100 50 03/04/17 16:00 65 03/04/17 16:00 50 03/04/17 16:00 97.5 65 15 108/53 99 125/44 03/04/17 14:00 69 03/04/17 12:05 95 50 03/04/17 12:00 75 03/04/17 12:00 98.0 75 18 111/39 95 101/52 03/04/17 12:00 50 03/04/17 10:00 138 03/04/17 09:42 94 40 -: 03/05/17 0425 03/05/17 0425 Tubes & Lines: Barrios Tubes & Lines Comment [place] Luisa catheter, Drip Comment heparin, versed, fentanyl, amiodarone Physical Exam General Appearance: Well Developed, Well Nourished, Sleeping, Obese Throat Throat Exam: Oral Mucosa Lorane & Moist Pulmonary Resp Exam: No Distress, Rhonchi, Decreased Bases, Diminished Breath Sounds Resp Remarks bilateral wheezing. Cardiology CV Exam: Good Perfusion, Irregular Gastrointestinal/Abdomen GI Exam: Soft, Non-Tender, Bowel Sounds Present, Distended Genitourinary Exam: Clear Urine Musculoskeletal MS Exam: Joints Intact, Normal Tone, Unable to Ambulate Integumentary Skin Exam: Clear, Warm, Dry, Intact Extremeties Extremities Exam: Pedal Pulses Palpable, Moderate Edema Neurologic Neuro Exam: Moving All Extremities Assessment/Plan Assessment Summary: Hypotension, Diabetes Mellitus Problem List: (1) Acute renal failure superimposed on chronic kidney disease Plan: RAGHAVENDRA likely due to hypotension, renal hypoperfusion, may have progressed to ATN. Renal function is worse today. We will initiate dialysis today. Discussed with Dr. Pederson. Dialysis again tomorrow. Monitor urine output. Avoid nephrotoxic agents. (2) NSTEMI (non-ST elevated myocardial infarction) Plan: Cardiology following. Catheterization is planned once he is more stable, but renal function is worsening. On Amiodarone drip, he has converted to NSR. (3) CHF exacerbation Plan: worsened by acute HI. monitor fluid volume status , diuresis as needed/tolerated (4) Pneumonia Plan: Currently on zosyn, and Zithromax solumedrol dose decreased continue vent management, settings are 18/600/40/5 ween from vent when able, he has not tolerated CPAP as of yet all cultures are negative s/p thoracentesis 03/03, 1500 ml drained (5) Type 2 diabetes mellitus Plan: off insulin drip blood sugar has improved Problem Qualifiers (1) CHF exacerbation: Qualified Code: I50.9 - Acute on chronic congestive heart failure, unspecified congestive heart failure type (2) Pneumonia: Qualified Code: J18.1 - Pneumonia of right lower lobe due to infectious organism Pablo Miner MD Mar 05, 2017 08:32
[2017-03-05] MEDS: CHLORHEXIDINE 0.12% (ORAL KIT) 15 ML CUP MT SCH ×2 (08:40→21:47)
[2017-03-05] MEDS: LACTIC ACID (AMMONIUM LACTATE) 12% LOTION 225 GM BTL TOPICAL SCH ×2 (08:40→21:00)
[2017-03-05] MEDS: PANTOPRAZOLE SODIUM 40 MG VIAL IV SCH (08:42)
[2017-03-05] MEDS: MULTIVITAMIN TAB PO SCH (08:42)
[2017-03-05] MEDS: CALCIUM ACETATE 667 MG CAP PO SCH ×3 (08:42→18:03)
[2017-03-05] MEDS: INSULIN DETEMIR 100 UNITS/ML VIAL SQ SCH ×2 (08:42→21:44)
[2017-03-05] MEDS: FOLIC ACID 1 MG TAB PO SCH (08:42)
[2017-03-05] MEDS: AMIODARONE 200 MG TAB PO SCH ×2 (08:42→21:03)
[2017-03-05] MEDS: methylPREDNISolone SOD SUCC 40 MG/1 ML VIAL IV PUSH SCH ×2 (08:42→21:10)
[2017-03-05] MEDS: SENNOSIDES SYRUP 8.8 MG/5 ML CUP PO SCH ×2 (08:42→21:04)
[2017-03-05] MEDS: DOCUSATE SODIUM 100 MG CAP PO SCH ×2 (08:42→21:02)
[2017-03-05] MEDS: BENEPROTEIN POWDER 1 PACK G-TUBE SCH ×3 (08:43→18:04)
[2017-03-05] MEDS: SODIUM CHLORIDE 0.9% FLUSH 10 ML FLUSH IV FLUSH SCH ×2 (08:43→21:00)
--- NOTE | 2017-03-05 10:03 | PD.PROCEDR ---
Procedure Note Procedure Procedure-Left thoracentesis Indication: Large left pleural effusion A time-out was completed verifying correct patient, procedure, site, positioning , and special equipment if applicable. The patient was placed in right lateral decubitus position and left side of chest was prepped and draped in a sterile manner after the appropriate infiltration level was confirmed by ultrasound. 1% lidocaine was used anesthetize the surrounding skin. A 10-blade scalpel used to make the incision. The thoracentesis Angio cath was then introduced and clear light yellow pleural fluid was aspirated. Needle was removed and Angiocath was connected to Vacutainer and a total of 1000 ml (1 liter) clear light yellow pleural fluid was removed. Patient tolerated procedure well. Blood less than 1 ml. Procedure was performed by Tangela Cruz MD Mar 05, 2017 10:03
--- NOTE | 2017-03-05 10:05 | PD.PROCEDR ---
Central Line Procedure REASON FOR PROCEDURE Central venous access PROCEDURE PERFORMED [facility] Informed consent for procedure was obtained and time out performed. The risks and benefits of the procedure were discussed to include but limited to bleeding , clot formation, infection, and even . ANESTHESIA Local injection of 1% Lidocaine DESCRIPTION OF THE PROCEDURE The patient was placed in supine, mild Trendelenburg position. The area was exposed and cleansed with ChloraPrep, times two. Large sterile drape was used to cover the patient, with the site exposed, under sterile conditions including cap, face mask, sterile gown, and sterile gloves. On single attempt, the introducer needle was inserted with negative pressure in syringe and venous flash was obtained. The guide wire was then advanced without any restriction and the needle was removed. The dilator was used without any complications. Using Seldinger technique the 24 CM 14 F double lumen Vascular catheter was advanced over the guide wire to a depth of 22 centimeters. The guide wire was removed. All ports were aspirated with dark venous blood return and flushed easily with sterile saline. All ports were capped. Antibiotic disc was placed around central line at puncture site. The central line was secured to the skin with two interrupted 2.0 silk sutures. The area was bandaged with sterile see- through central line bandage. RADIOLOGICAL DATA Ultrasound guidance was used to locate LIJ. Doppler/color flow was used to confirm venous flow. COMPLICATIONS: No apparent complications ESTIMATED BLOOD LOSS: Less than 5 cc. Tangela Pederson MD Mar 05, 2017 10:04
[2017-03-05] MEDS: THIAMINE INJ 100 MG in SODIUM CHLORIDE 0.9% INJ 100 ML IV SCH (10:39)
[2017-03-05] MEDS: HEPARIN SODIUM - IV 10,000 UNITS/10 ML VIAL PRN ×2 (10:39→14:47)
--- NOTE | 2017-03-05 10:39 | RADRPT ---
EXAM DATE/TIME: 03/05/2017 10:01 [facility] COMPARISON: CHEST SINGLE AP, March 04, 2017, 12:12. INDICATIONS : Post left thoracentesis and left vas cath placement MEDICAL HISTORY : Chronic obstructive pulmonary disease. Cardiovascular disease. Myocardial infarction. SURGICAL HISTORY : None. ENCOUNTER: Subsequent ACUITY: 1 week PAIN SCORE: Non-responsive. LOCATION: Bilateral chest FINDINGS: A left internal jugular Vas-Cath has been placed and has its tip in the superior vena cava. No pneum othorax is noted. Small bilateral pleural effusions are noted. a right subclavian central line has its tip in the superior vena cava. The endotracheal tube is in good position 3 cm above the gwendolyn. A nasogastric tube has its tip below the diaphragm. There is slight interval improved aeration of t he lungs suggestive of improving pulmonary vascular congestion or pneumonia. The heart is stable. D egenerative changes are noted throughout the thoracic spine. CONCLUSION: 1. No pneumothorax status post placement of left internal jugular Vas-Cath which has its tip in the superior vena cava. 2. Small bilateral pleural effusions. 3. Improved aeration of the lungs suggesting improving pulmonary vascular congestion or pneumonia. Mild increased interstitial changes remain. 4. Multiple tubes and lines are stable. 5. Stable cardiomegaly. Cash Cowan MD on March 05, 2017 at 10:31 Board Certified Radiologist. This report was verified electronically.
[2017-03-05 14:23] LABS: TOTAL PROTEIN,PLEURAL FLUID 1.7 GM/DL
[2017-03-05] MEDS: GENTAMICIN SULFATE (DIALYSIS USE ONLY) 20 MG/2 ML VIAL IV PRN (14:47)
[2017-03-05 14:56] LABS: PLEURAL FLUID LYMPHS 43 %
[2017-03-05] MEDS: HEPARIN-D5W INJ 250 ML IV SCH (16:14)
[2017-03-05] MEDS ORDERED: SODIUM CHLOR 0.9% 1000 ML INJ 1,000 ML IV ONE (18:30)
[2017-03-05] MEDS ORDERED: ALBUMIN HUMAN 5% 25 GM/500 ML BOTTLE IV ONE (18:30)
[2017-03-05] MEDS: ATORVASTATIN 80 MG TAB PO SCH (21:03)
[2017-03-05] MEDS: ASPIRIN EC 81 MG TABEC PO SCH (21:03)
[2017-03-05 23:19] LABS: APTT (PATIENT) 62.7 SEC (24.3-30.1)
[2017-03-06] VITALS (19 sets, daily range): BP systolic 89–136; BP diastolic 53–66; PULSE 85–112; RESP 16–24; TEMP 97.4–99.2; O2SAT 90–100
[2017-03-06] MEDS: MIDAZOLAM 100 MG/NS 100 ML DRIP Premix IV SCH ×2 (01:10→21:14)
[2017-03-06] MEDS: PIPERACIL-TAZO 2.25 GM PREMIX 50 ML IV SCH ×4 (01:11→17:40)
[2017-03-06] MEDS: hydrALAZINE HCL 20 MG/ML VIAL IV PUSH SCH ×6 (01:11→20:31)
[2017-03-06] MEDS: INSULIN NovoLIN REGULAR SUPPLEMENTAL SCALE SQ SCH ×6 (04:00→20:00)
[2017-03-06] MEDS: CHLORHEXIDINE GLUCONATE 2 % 1 PACK (2 CLOTHS) TOP SCH (04:00)
[2017-03-06] MEDS: RESP: ALBUTEROL 2.5 MG/IPRATROPIUM 0.5 MG NEB (SCH) INH ×5 (04:03→19:22)
[2017-03-06 05:43] LABS: EOSINOPHIL % 0.1 % (0.0-4.0); HEMATOCRIT 27.5 % (39.0-51.0); LYMPH % 1.9 % (9.0-44.0); LYMPHOCYTE # 0.3 TH/MM3 (1.0-4.8); MEAN CELL VOLUME 90.7 FL (80.0-100.0); MEAN CORPUSCULAR HEMOGLOBIN 29.7 PG (27.0-34.0); MEAN CORPUSCULAR HGB CONC 32.8 % (32.0-36.0); MONO % 5.7 % (0.0-8.0); NEUT % 92.3 % (16.0-70.0); PLATELET COUNT 215 TH/MM3 (150-450); RED BLOOD COUNT 3.03 MIL/MM3 (4.50-5.90); RED CELL DISTRIBUTION WIDTH 14.6 % (11.6-17.2); WHITE BLOOD COUNT 15.2 TH/MM3 (4.0-11.0)
[2017-03-06 05:47] LABS: HEMO FLAGS AUTO DIFF
[2017-03-06 05:49] LABS: APTT (PATIENT) 66.6 SEC (24.3-30.1)
[2017-03-06] MEDS: ARTIFICIAL TEARS OPTH SOLN 15 ML BTL EACH EYE SCH ×3 (06:00→20:32)
--- NOTE | 2017-03-06 06:06 | RADRPT ---
EXAM DATE/TIME: 03/06/2017 03:47 [facility] COMPARISON: CHEST SINGLE AP, March 05, 2017, 10:01. INDICATIONS : Shortness of breath. MEDICAL HISTORY : None. SURGICAL HISTORY : None. ENCOUNTER: Subsequent ACUITY: 1 week PAIN SCORE: Non-responsive. LOCATION: Bilateral chest FINDINGS: A single portable frontal view of the chest shows diffuse intra-alveolar infiltrates most pronounced within the bases. This has progressed from the prior study. Small left effusion. The right costophren ic angle is omitted from the film. The heart is mildly enlarged. Tip of the endotracheal tube 2 cm ce phalad to the gwendolyn. Nasogastric tube courses off the inferior margin of the film. Left-sided dialys is catheter and right-sided central line. CONCLUSION: Worsening bilateral consolidation likely relating to pulmonary edema. Adams Galicia Jr., MD on March 06, 2017 at 6:04 Board Certified Radiologist. This report was verified electronically.
[2017-03-06 06:09] LABS: ALKALINE PHOSPHATASE 60 U/L (45-117); ALT (GPT) 21 U/L (12-78); ANION GAP 14 MEQ/L (5-15); AST (GOT) 24 U/L (15-37); BLOOD UREA NITROGEN 134 MG/DL (7-18); CHLORIDE 99 MEQ/L (98-107); GLOMERULAR FILTRATION RATE 10 ML/MIN (>89); MAGNESIUM 3.3 MG/DL (1.5-2.5); SODIUM (NA) 140 MEQ/L (136-145); TOTAL BILIRUBIN ADULT 0.4 MG/DL (0.2-1.0)
[2017-03-06] MEDS: METOCLOPRAMIDE HCL 10 MG/2 ML VIAL IV PUSH SCH ×4 (06:21→20:20)
[2017-03-06 07:47] LABS: BANDS 11 % (0-6); METAMYELOCYTES 1 % (0-1); MYELOCYTES 4 % (0-0); NEUTROPHIL # MANUAL DIFF 14.6 TH/MM3 (1.8-7.7); POLYS (SEG NEUTROPHILS) 80 % (16-70); WBC DIFF SAMPLE 100
[2017-03-06 07:48] LABS: PLATELET ESTIMATE SMEAR NORMAL (NORMAL); PLATELET MORPHOLOGY NORMAL (NORMAL); SCAN/DIFF FINAL DIFF MANUAL
--- NOTE | 2017-03-06 07:59 | PD.CARD.PN ---
Subjective Subjective Remarks intubated, mechanically ventilated (Robert Marte) Objective Vital Signs / I&O Vital Signs Date Time Temp Pulse Resp B/P Pulse Ox O2 Delivery O2 Flow Rate FiO2 03/06/17 06:00 88 03/06/17 04:32 99 60 03/06/17 04:14 100 100 03/06/17 04:00 97.4 95 24 89/53 90 03/06/17 04:00 100 03/06/17 04:00 107 03/06/17 02:00 85 03/06/17 01:00 90 100 03/06/17 00:00 98 03/06/17 00:00 100 03/06/17 00:00 98.7 98 17 122/65 03/05/17 22:00 96 03/05/17 20:38 100 45 03/05/17 20:00 91 03/05/17 20:00 97.8 91 15 96/54 98 03/05/17 20:00 45 03/05/17 18:00 84 03/05/17 17:01 95 45 03/05/17 16:00 106 03/05/17 16:00 98.1 106 15 129/61 93 03/05/17 16:00 40 03/05/17 14:00 101 03/05/17 12:00 40 03/05/17 12:00 98.2 100 17 97/57 94 Arterial Line 03/05/17 12:00 100 03/05/17 11:12 94 45 03/05/17 10:00 94 03/05/17 08:00 40 03/05/17 08:00 96 03/05/17 08:00 98.1 96 15 106/55 96 119/46 I/O 03/05/17 03/05/17 03/05/17 03/06/17 03/06/17 03/06/17 07:00 15:00 23:00 07:00 15:00 23:00 Intake Total 668 ml 652 ml 1396 ml 659 ml Output Total 175 ml 55 ml 75 ml Balance 493 ml 652 ml 1341 ml 584 ml IV Total 519 ml 502 ml 493 ml 235 ml Tube Feeding 119 ml 0 ml 403 ml 424 ml Albumin 500 ml Other 30 ml 150 ml Output Urine Total 175 ml 55 ml 75 ml Stool Total 0 ml 0 ml Gastric Drainage Total 0 ml # Bowel Movements 1 1 Physical Exam GENERAL: Well-nourished, well-developed patient in no apparent distress. NECK: No JVD. No carotid bruit. CARDIOVASCULAR: Regular rate and rhythm. S1/S2 no murmur, rub, or gallop. RESPIRATORY: No accessory muscle use. mild rhonchi to auscultation. Breath sounds equal bilaterally. GASTROINTESTINAL: Abdomen soft, non-tender, nondistended. MUSCULOSKELETAL: Extremities without clubbing, cyanosis, or edema. Laboratory Laboratory Tests Test 03/05/17 03/05/17 03/06/17 10:30 22:00 04:20 Pleural Fluid pH 8.0 Pleural Fluid WBC 193 /MM3 Pleural Fluid RBC 143 /MM3 Pleural Fluid Neutrophils 51 % Pleural Fluid Lymphocytes 43 % Pleural Fluid Monocytes 1 % Pleural Fluid Histiocytes 1 % Pleural Fluid Mesothelial 1 % Cells Pleural Fluid Other Cells 3 % Pleural Fluid Total Protein 1.7 GM/DL Pleural Fluid LDH 89 U/L Pleural Fluid Glucose 134 MG/DL Pleural Fluid Amylase 6 U/L Activated Partial 62.7 SEC 66.6 SEC Thromboplast Time White Blood Count 15.2 TH/MM3 Red Blood Count 3.03 MIL/MM3 Hemoglobin 9.0 GM/DL Hematocrit 27.5 % Mean Corpuscular Volume 90.7 FL Mean Corpuscular Hemoglobin 29.7 PG Mean Corpuscular Hemoglobin 32.8 % Concent Red Cell Distribution Width 14.6 % Platelet Count 215 TH/MM3 Mean Platelet Volume 9.3 FL Neutrophils (%) (Auto) 92.3 % Lymphocytes (%) (Auto) 1.9 % Monocytes (%) (Auto) 5.7 % Eosinophils (%) (Auto) 0.1 % Basophils (%) (Auto) 0.0 % Neutrophils # (Auto) 14.0 TH/MM3 Lymphocytes # (Auto) 0.3 TH/MM3 Monocytes # (Auto) 0.9 TH/MM3 Eosinophils # (Auto) 0.0 TH/MM3 Basophils # (Auto) 0.0 TH/MM3 CBC Comment AUTO DIFF Differential Total Cells 100 Counted Neutrophils % (Manual) 80 % Band Neutrophils % 11 % Lymphocytes % 1 % Monocytes % 3 % Neutrophils # (Manual) 14.6 TH/MM3 Metamyelocytes 1 % Myelocytes 4 % Differential Comment FINAL DIFF MANUAL Platelet Estimate NORMAL Platelet Morphology Comment NORMAL Red Cell Morphology Comment NORMAL Sodium Level 140 MEQ/L Potassium Level 5.0 MEQ/L Chloride Level 99 MEQ/L Carbon Dioxide Level 27.0 MEQ/L Anion Gap 14 MEQ/L Blood Urea Nitrogen 134 MG/DL Creatinine 5.47 MG/DL Estimat Glomerular Filtration 10 ML/MIN Rate Random Glucose 241 MG/DL Calcium Level 9.0 MG/DL Magnesium Level 3.3 MG/DL Total Bilirubin 0.4 MG/DL Aspartate Amino Transf 24 U/L (AST/SGOT) Alanine Aminotransferase 21 U/L (ALT/SGPT) Alkaline Phosphatase 60 U/L Total Protein 5.8 GM/DL Albumin 3.0 GM/DL (Robert Marte) Assessment and Plan Problem List: (1) NSTEMI (non-ST elevated myocardial infarction) (2) Acute CHF (3) Shock (4) Atrial fibrillation Assessment and Plan Acute respiratory distress appears to be multifactorial. PNA, COPD, CHF. FIO2 50% CHF, acute systolic Cardiomyopathy - EF 25%. Severe PHTN NSTEMI Sepsis At least moderate aortic stenosis. HTN - well controlled ARF - worsening, for dialysis today NSVT - on amiodarone Will return on Thursday (Robert Marte) Assessment and Plan \\ SEPTIC SHOCK. SBP improved now. less likely cardiogenic shock by SVR and CI on swan marcelino (now removed) s/p bilateral thoracentesis cardiomyopathy moderate valvular heart disease ARF probably secondary to ATN intubated with high FiO2 requirements plan for hemodialysis for volume removal once clinically improved, he will need ischemic workup may consider [facility] to evaluate PHTN and NSTEMI. unfortunately, with ATN, will need to avoid contrast and see if he has any recovery in function. (Jong Butts MD) Robert Marte Mar 06, 2017 07:59 Jong Butts MD Mar 06, 2017 10:08
[2017-03-06] MEDS: CALCIUM ACETATE 667 MG CAP PO SCH ×3 (08:22→17:40)
[2017-03-06] MEDS: SENNOSIDES SYRUP 8.8 MG/5 ML CUP PO SCH ×2 (08:22→20:20)
[2017-03-06] MEDS: FOLIC ACID 1 MG TAB PO SCH (08:23)
[2017-03-06] MEDS: MULTIVITAMIN TAB PO SCH (08:23)
[2017-03-06] MEDS: AMIODARONE 200 MG TAB PO SCH ×2 (08:23→20:22)
[2017-03-06] MEDS: methylPREDNISolone SOD SUCC 40 MG/1 ML VIAL IV PUSH SCH ×2 (08:24→20:21)
[2017-03-06] MEDS: PANTOPRAZOLE SODIUM 40 MG VIAL IV SCH (08:24)
[2017-03-06] MEDS: THIAMINE INJ 100 MG in SODIUM CHLORIDE 0.9% INJ 100 ML IV SCH (08:25)
[2017-03-06] MEDS: SODIUM CHLORIDE 0.9% FLUSH 10 ML FLUSH IV FLUSH SCH ×2 (08:25→20:30)
[2017-03-06] MEDS: BENEPROTEIN POWDER 1 PACK G-TUBE SCH ×3 (08:25→17:40)
[2017-03-06] MEDS: LACTIC ACID (AMMONIUM LACTATE) 12% LOTION 225 GM BTL TOPICAL SCH ×2 (08:26→20:31)
[2017-03-06] MEDS: INSULIN DETEMIR 100 UNITS/ML VIAL SQ SCH ×2 (08:26→20:30)
[2017-03-06] MEDS: DOCUSATE SODIUM 100 MG CAP PO SCH ×2 (08:26→20:20)
--- NOTE | 2017-03-06 08:40 | HHI.CCPN ---
Subjective Remarks/Hospital Course Per overnight christian science nurse 02/26/17 Responded to [facility] overhead. Upon arrival to F pod discovered that patient was awake and normotensive, with sinus tachycardia in the 150s in severe respiratory distress. He had not lost a pulse but [facility] had been called to facilitate rapid evaluation and stabilization. 76-year-old male with past history of obesity, COPD, obstructive sleep apnea on CPAP, CHF, peripheral neuropathy, hypertension, diabetes, hyperlipidemia, obesity who receives medical care at the [facility]. He presented to [facility] emergency department 02/25/17 with falls and difficulty with balance. He also reported that he was having shortness of breath and cough for several days. Was not febrile in hospital. On the day of admission he had some chest pain across his chest. Troponins negative. He was treated for pneumonia with Rocephin and azithromycin. He was placed on steroids Solu-Medrol 60 mg IV every 6 hours. Received Lasix at about 6 PM on due to concern for volume overload. Echo had poor images but systolic function appeared reduced. Tonight he developed acutely worsening shortness of breath and Dr. Galicia presented to the emergency Department to evaluate him where he was found to be tachypneic and wheezing. He was given a neb and preparations were being made to place him on BiPAP. He was becoming less responsive and was looking upward when I arrived and respiratory was placing on Bipap. He was in extremis and it was felt he would need emergent intubation prior to transfer to ICU. He denied chest pain. He was preoxygenated on Bipap, did seem to become more alert and nodded that he agreed with proceeding with intubation. He was intubated in [facility] pod and then transferred to [facility]. Upon arrival to [facility] he was in atrial fibrillation in the 130s. SBP was 90/50 then 64/40. Central line was placed and he converted to sinus tachycadia in 101-130s. Subsequently he was normotensive with MAP 71. He was also sedated with propofol during the hypotension, improved after transition to fentanyl drip. 02/27: PA catheter placed yesterday. PA catheter readings are more consistent distributive/septic shock with high cardiac output with low SVR. CO 10-11. CI 2.8 SVRI [id number]. D/W Dr Butts. Will hold off Flolan challenge at this time for high PA pressure- mean 59-60. After weaning pressors, PA mean pressure is about 40. Patient's hemodynamics have improved, vasopressin is off now, Levophed is at 4 mics per minute. Give Bumex 2 mg 1 on Bumex drip at 2 mg per hour per Dr. Miner 02/28: Afebrile. Arousable on the vent and moves 4 extremities spontaneously but doesn't follow commands. No bowel movement since admission. Currently nothing by mouth. Remains on low-dose vasopressors including vasopressin and Levophed 03/01: [place] Luisa catheter removed yesterday. Adequate urine output on Bumex drip at 1 mg an hour. Afebrile. Currently replaced potassium. 03/02: Afebrile. Bumex drip has been discontinued. Currently replaced potassium. Positive BM overnight. We'll attempt spontaneous breathing trials today. 03/03: Afebrile. Adequate urine output. Positive BM. Tolerating tube feeds. Heparin drip for thoracentesis. Eyes are open but not following commands. Continues on Versed and fentanyl drips. 03/04: Afebrile. Status post thoracentesis yesterday -1150 years transudative. Positive BM 1. Tolerating tube feeding. Hypertensive. Hydralazine added per cardiology. 03/05: Patient remains intubated sedated. Bedside ultrasound shows Moderate left pleural effusion. Agitated on lightening sedation Subjective 03/06: Remains intubated sedated. Overnight FiO2 had to increaseto 100 % due to desaturation, now reduced to 60% again. Chest x-ray shows bilateral pulmonary edema. Nephrology contacted- hemodialysis today with attempt at 4L removal. Status post bedside thoracentesis (Left side) yesterday with 1L transudative fluid removal Objective Vital Signs Date Time Temp Pulse Resp B/P Pulse Ox O2 Delivery O2 Flow Rate FiO2 03/06/17 07:53 94 50 03/06/17 06:00 88 03/06/17 04:00 97.4 24 89/53 Intake and Output 03/05/17 03/05/17 03/06/17 08:00 16:00 00:00 Intake Total 668 ml 652 ml 1396 ml Output Total 175 ml 55 ml Balance 493 ml 652 ml 1341 ml Result Diagram: 03/06/17 0420 03/06/17 0420 Other Results Microbiology Date/Time Procedure Status Source Growth 03/03/17 14:40 Gram Stain - Final Complete Fluid Pleural Fluid 03/03/17 14:40 Body Fluid Culture - Final Complete Fluid Pleural Fluid NO GROWTH IN 72 HRS.--AEROBICALLY OR ... Imaging Last Impressions Chest X-Ray 03/04/17 0600 Signed Impressions: Service Date/Time: Saturday, March 04, 2017 04:24 - CONCLUSION: Bilateral pleural effusions cardiomegaly persists. Tubes and catheters in good position. Jong Garcia MD Thoracentesis 03/03/17 0000 Signed Impressions: Service Date/Time: Friday, March 03, 2017 14:09 - CONCLUSION: Uncomplicated CT-guided right thoracentesis. Cash Cowan MD Abdomen X-Ray 03/02/17 0600 Signed Impressions: Service Date/Time: Thursday, March 02, 2017 04:03 - CONCLUSION: Normal examination. The NG tube is entering the proximal stomach. Jong Garcia MD Chest CT 03/02/17 0000 Signed Impressions: Service Date/Time: Thursday, March 02, 2017 11:42 - CONCLUSION: Large bilateral pleural effusions and bibasilar consolidation and/or compressive collapse not present on the study from 2015. K. Nitish Nguyen MD Lower Extremity Ultrasound 02/27/17 0000 Signed Impressions: Service Date/Time: Monday, February 27, 2017 09:13 - CONCLUSION: Normal examination. Evaristo Massey MD Head CT 02/24/17 0000 Signed Impressions: Service Date/Time: Friday, February 24, 2017 18:59 - CONCLUSION: 1. No acute hemorrhage or mass effect. 2. Acute sinusitis in the left maxillary sinus. Raul Craig MD Cervical Spine MRI 02/24/17 0000 Signed Impressions: Service Date/Time: Friday, February 24, 2017 22:46 - CONCLUSION: 1. Small central protrusion at C4-5 without canal stenosis. 2. Small central protrusion at C3-4 with minimal extruded component. 3. Mild broad-based disc bulges at C5- 6 and C6-7 levels without canal stenosis. Neto Duenas MD Cervical Spine CT 02/24/17 0000 Signed Impressions: Service Date/Time: Friday, February 24, 2017 19:02 - CONCLUSION: 1. Moderate narrowing of left neural foramina at the C3-4 level secondary to hypertrophic change involving the facet joint. 2. Mild degenerative change at the C5-6 and C6-7 levels. 3. Mild disc osteophyte complex at C5-6 with mild narrowing of the neural foramina. Raul Craig MD Brain MRI 02/24/17 0000 Signed Impressions: Service Date/Time: Friday, February 24, 2017 22:46 - CONCLUSION: 1. No acute intracranial abnormality. 2. Left maxillary sinus disease. 3. No acute infarction. Neto Duenas MD Objective Remarks GENERAL: 56-year-old male, critically ill currently intubated sedated SKIN: Warm and dry. Perfusing adequately HEAD: Atraumatic. Normocephalic. EYES: Pupils equal and round 3-4 mm and reactive bilaterally. No scleral icterus. No injection or drainage. ENT: Orotracheally intubated NECK: Trachea midline. Right Subclavian, LIJ clean dry and intact CARDIOVASCULAR: RRR. S1, S2. No S4. Faint 1/6 systolic murmur right upper sternal border RESPIRATORY: Few crackles appreciated bilaterally. Left greater than right Symmetrical excursion. GASTROINTESTINAL: Abdomen obese, protuberant, small umbilical reducible hernia. Bowel sounds are hypoactive. MUSCULOSKELETAL: Extremities with chronic 2+ pitting bilateral lower extremity edema up to knee. Chronic venous stasis/lymphedema NEUROLOGICAL: Eyes are open. Positive corneal reflex. Positive gag. Moves all 4 extremity spontaneously but not following commands. Withdraws to pain upper and lower extremities bilaterally. Urinary Catheter: Yes Assessment to: Continue Vascular Central Line Catheter: Yes Assessment to: Continue A/P Assessment and Plan NEURO/PSYCH: Acute encephalopathy - secondary to hypercapnia and hypoxemia Peripheral neuropathy Allergic rhinitis Currently on propofol, Versed and Fentanyl. DC Propofol and Precedex as patient will need penitentiary vent support Goal of RASS -2. Daily sedation vacation MRI brain 02/24 - no acute abnormality MRI C-spinesmall central protrusion at C3/C4 with mild extruded central spinal cord C4-C5 without canal stenosis with mild disc bulging C5/6 and C6/7 EEG 02/27 revealed moderate to severe encephalopathy. No epileptiform activity Questionable history of EtOH use/abuse. We'll continue on thiamine/folate and multivitamin today Neurontin level/2.3. Previously on 600 mg 3 times a day for shingles pain management. Currently on hold Holding Flonase twice a day/Zyrtec 5 mill grams daily. Resume as clinically indicated RESP: Acute hypoxemic and hypercapnic respiratory failure Acute COPD exacerbation Bilateral large pl effusions History of asthma? Acute on chronic pulmonary artery hypertension Objective sleep apnea - noncompliant with CPAP History of tobacco abuse PRVC 15/550/1.2/. Ventilator bundle DuoNeb every 4 hours with albuterol every 2 hours when necessary Continue Pulmicort 0.5/2 one inhalation twice a day Solumedrol 20 milligrams every q12 to be weaned over the next several days s/p thoracentesis left-sided 03/05 with 1L removed -transudate Right thoracentesis 03/03 likely transudative. -1150 Home medication regimen is Symbicort 160/4.5 to press twice a day, Spiriva 18 inhalation daily and Ventolin 4 times a day with duo nebs aerosols for breakthrough every 4 hours when necessary According to records, noncompliant with CPAP for SEBASTIAN Airway edema noted particularly large arytenoid edema noted on intubation 02/26 with anterior airway. Intubated with Glidescope and 7.5 ETT. Cardiovascular: Pulmonary edema Shock, distributive/septic resolved Acute on chronic systolic heart failure EF 25-30% Moderate Moderate to severe TR NSTEMI Paroxysmal atrial fibrillation/flutter History of Hypertension Hyperlipidemia History of coronary artery disease Currently off all vaso pressors. Additional fl removal today with HD (target 4L) PAC placed 02/26-initially distributive shock (CI 2.8, SVRI 1300). Cardiac index at 2.1. Cardiac output 5.2 and SVR 1250 this could be possibly be vaso constrictive/late sepsis versus effects of diuresis It is unclear whether pulmonary hypertension is secondary to left heart failure , or is it secondary to obstructive sleep apnea and COPD [employer] was unable to do transpulmonary gradient secondary to unable to wedge balloon [place] Luisa catheter removed 02/[address] Butts IV heparin for NSTEMI and A Fib rate Bumex 2 mg IV 1 02/27 and initiated Bumex infusion currently discontinued as of 03/03 Continue aspirin 81 mg daily Continue amiodarone 400 milligrams by mouth twice a day Troponin peaked at 27. Left heart catheterization when clinically stable Continue atorvastatin 80 mg daily at bedtime for dyslipidemia Unable to use beta charles secondary due to hypotension. On Lopressor 200 mg daily at home. Other blood pressures include lisinopril 40 mg daily and HCTZ 12.5 mg daily. On hold due to acute kidney injury Started hydralazine [address] Minor Echo 02/27: - Systolic function was severely reduced 25% to 30%. Diffuse hypokinesis. -Aortic valve: moderate stenosis. Tricuspid valve: Moderate/severe regurgitation. SUZAN 70 mmHg GI: Constipation Glucerna 1.5 goal 55 cc an hour Protonix 40 mg IV daily Colace and Senokot twice a day for bowel regimen Having BM Start Reglan for high residual : BPH Holding doxazosin 8 mg daily light of hypotension Maintain Barrios for accurate I's and O's in a critically ill patient FEN/RENAL: Acute kidney injury/ATN Hypokalemia Monitor intake and output. Monitor electrolytes Bumex discontinued HD started 03/05, 2L fluid removed. Hemodialysis is planned for today again with 4 L targeted removal ID: Acute community acquired pneumonia Septic shock-resolved Continue Zosyn. discontinue his Zithromax after 8 days. Microbiology: lood culture 2 setsno growth to date 02/25sputum - no growth 02/25urine Legionella and pneumococcal antigen negative 02/25influenza screen negative 02/26 - urine - no growth 02/26 - blood cultures 2 - no growth 03/06: Repeat sputum culture Likely de-escalate antibiotics next 24-48 hours HEME: Normocytic anemia No indication for transfusion of blood products at this time Continue IV heparin drip for A. fib/nonsustained ENDO: Poorly controlled diabetes mellitus - hemoglobin A1c of 8.6 Levemir 40 units twice a day with sliding scale insulin 4/moderate regimen. At home on Lantus 35 units twice a day and Novulin R 15 units 3 times a day with meals MSK Chronic lymphedema Osteoporosis/osteoarthritis Lac-Hydrin twice a day for lower extremity lymphedema 02/27 venous Dopplers showed no DVT Hold Risedronate 35 mg mg weekly for osteoporosis PROPH: Protonix 40 mg IV daily for stress ulcer prophylaxis. Heparin drip as per above ACCESS: Right subclavian central venous line placed 02/26 #9 Right IJ Cordis/day #4 discontinued 03/02 LAUREEN Jose Mariacath placed 03/05/17 Full code Critical Care: The total critical care time was 40 minutes. Time to perform other separately billable procedures was not included in the critical care time. Dr Almaraz discussed with at bedside. Care plan discussed all questions answered ->.Tangela Eisenberg MD Mar 06, 2017 08:40
[2017-03-06] MEDS: CHLORHEXIDINE 0.12% (ORAL KIT) 15 ML CUP MT SCH ×2 (09:04→19:36)
[2017-03-06] MEDS: SODIUM CHLOR 0.9% 1000 ML INJ 1,000 ML IV PRN (10:19)
[2017-03-06] MEDS: ALBUMIN HUMAN 25% 25 GM/100 ML BAGP IV PRN (10:19)
[2017-03-06] MEDS: GENTAMICIN SULFATE (DIALYSIS USE ONLY) 20 MG/2 ML VIAL IV PRN (10:19)
[2017-03-06] MEDS: HEPARIN SODIUM - IV 10,000 UNITS/10 ML VIAL PRN (10:19)
[2017-03-06] MEDS: MANNITOL 12.5 GM/50 ML VIAL IV PRN (10:20)
[2017-03-06] MEDS: RESP: BUDESONIDE 0.5 MG/2 ML NEB NEB SCH ×2 (12:04→19:22)
--- NOTE | 2017-03-06 14:31 | RADRPT ---
EXAM DATE/TIME: 03/06/2017 13:41 [facility] COMPARISON: CHEST SINGLE AP, March 06, 2017, 3:47. INDICATIONS : Evaluate for pulmonary edema. MEDICAL HISTORY : pulmonary edema. SURGICAL HISTORY : None. ENCOUNTER: Subsequent ACUITY: 4 - 6 days PAIN SCORE: Non-responsive. LOCATION: Bilateral chest FINDINGS: A single view of the chest demonstrates extensive, diffuse bilateral airspace disease and persistent bilateral pleural effusions. There is a consolidative area in the left lower lung field which could r epresent fluid in the fissure. Heart size remains prominent. Endotracheal, nasogastric and large bore left IJ central venous catheters are unchanged in position. CONCLUSION: 1. Persistent, extensive bilateral airspace disease with bilateral pleural effusions. 2. New area of consolidation in the left lower lung field left lingula may represent fluid in the fis sure. 3. Stable position of life support tubes Brandon Sin MD on March 06, 2017 at 14:16 Board Certified Radiologist. This report was verified electronically.
--- NOTE | 2017-03-06 15:12 | HHI.NPPN ---
Subjective Complaints: Obesity General Problems: Edema Renal Failure: Acute Interval History He is on cPAP trial. Had dialysis again today. Urine output has dropped. ( Katina Park) Review of Systems General General Remarks unable to evaluate (Katina Park) Objective Data Data 03/05/17 03/06/17 19:00 07:00 Intake Total 1152 ml 1555 ml Output Total 2000 ml 130 ml Balance -848 ml 1425 ml IV Total 502 ml 728 ml Tube Feeding 0 ml 827 ml Albumin 500 ml Other 150 ml Output Urine Total 130 ml Stool Total 0 ml Gastric Drainage Total 0 ml Hemodialysis 2000 ml # Bowel Movements 1 Vital Signs Date Time Temp Pulse Resp B/P Pulse Ox O2 Delivery O2 Flow Rate FiO2 03/06/17 12:25 55 03/06/17 12:04 95 60 03/06/17 12:00 55 03/06/17 10:00 112 03/06/17 08:00 95 03/06/17 08:00 50 03/06/17 08:00 99.2 110 16 102/56 94 03/06/17 07:53 94 50 03/06/17 06:00 88 03/06/17 04:32 99 60 03/06/17 04:14 100 100 03/06/17 04:00 97.4 95 24 89/53 90 03/06/17 04:00 100 03/06/17 04:00 107 03/06/17 02:00 85 03/06/17 01:00 90 100 03/06/17 00:00 98 03/06/17 00:00 100 03/06/17 00:00 98.7 98 17 122/65 03/05/17 22:00 96 03/05/17 20:38 100 45 03/05/17 20:00 91 03/05/17 20:00 97.8 91 15 96/54 98 03/05/17 20:00 45 03/05/17 18:00 84 03/05/17 17:01 95 45 03/05/17 16:00 106 03/05/17 16:00 98.1 106 15 129/61 93 03/05/17 16:00 40 (Katina Park) -: 03/06/17 0420 03/06/17 0420 Microbiology 03/06/17 Gram Stain, Received Pending 03/06/17 Sputum Culture, Received Pending Imaging Last 72 hours Impressions Chest X-Ray 03/06/17 0600 Signed Impressions: Service Date/Time: Monday, March 06, 2017 03:47 - CONCLUSION: Worsening bilateral consolidation likely relating to pulmonary edema. Adams Galicia Jr., MD Chest X-Ray 03/06/17 0000 Signed Impressions: Service Date/Time: Monday, March 06, 2017 13:41 - CONCLUSION: 1. Persistent, extensive bilateral airspace disease with bilateral pleural effusions. 2. New area of consolidation in the left lower lung field left lingula may represent fluid in the fissure. 3. Stable position of life support tubes Brandon Sin MD Chest X-Ray 03/05/17 0000 Signed Impressions: Service Date/Time: February 10:01 - CONCLUSION: 1. No pneumothorax status post placement of left internal jugular Vas-Cath which has its tip in the superior vena cava. 2. Small bilateral pleural effusions. 3. Improved aeration of the lungs suggesting improving pulmonary vascular congestion or pneumonia. Mild increased interstitial changes remain. 4. Multiple tubes and lines are stable. 5. Stable cardiomegaly. Cash Cowan MD Chest X-Ray 03/04/17 0600 Signed Impressions: Service Date/Time: Saturday, March 04, 2017 04:24 - CONCLUSION: Bilateral pleural effusions cardiomegaly persists. Tubes and catheters in good position. Jong Garcia MD Chest X-Ray 03/04/17 0000 Signed Impressions: Service Date/Time: Saturday, March 04, 2017 12:12 - CONCLUSION: 1. The gastric tube tip and side-port are intrathoracic and the tube needs to be advanced at least 15 cm. 2. Stable bilateral lower lung consolidation and bilateral pleural effusions. Adams Powell MD Abdomen X-Ray 03/04/17 0000 Signed Impressions: Service Date/Time: Saturday, March 04, 2017 13:27 - CONCLUSION: NG tube tip and side-port within the stomach. Adams Powell MD Tubes & Lines: Vas-Cath, Barrios Tubes & Lines Comment TLC right SC VC left IJ Drip Comment versed, fentanyl (Katina Park) Physical Exam General Appearance: Well Developed, Well Nourished, Sleeping, Obese Appearance Remarks intubated, sedated but opens eyes, not following commands (Katina Park) Throat Throat Exam: Oral Mucosa Lynch & Moist (Katina Park) Pulmonary Resp Exam: No Distress, Rhonchi, Decreased Bases, Diminished Breath Sounds Resp Remarks exp wheezing throughout (Katina Park) Cardiology CV Exam: Good Perfusion, Irregular, Tachycardia (Katina Park) Gastrointestinal/Abdomen GI Exam: Soft, Non-Tender, Bowel Sounds Present, Distended (Katina Park) Genitourinary Exam: Clear Urine (Katina Park) Musculoskeletal MS Exam: Joints Intact, Normal Tone, Unable to Ambulate (Katina Park) Integumentary Skin Exam: Clear, Warm, Dry, Intact (Katina Park) Extremeties Extremities Exam: Pedal Pulses Palpable, Moderate Edema, Pitting Edema ( Katina Park) Neurologic Neuro Exam: Moving All Extremities (Katina Park) Assessment/Plan Assessment Summary: Hypotension, Diabetes Mellitus Problem List: (1) Acute renal failure superimposed on chronic kidney disease Plan: RAGHAVENDRA likely due to hypotension, renal hypoperfusion, may have progressed to ATN. Vascath placed 03/05, HD initiated yesterday (2L UF), had dialysis again today with 5L UF urine output has dropped, continue to monitor he will have HD again tomorrow, then convert T//Sat HD Avoid nephrotoxic agents. He is not on IVF or diuretics monitor vascath site/function increase calcium acetate for hyperphosphatemia (2) NSTEMI (non-ST elevated myocardial infarction) Plan: Cardiology following. Catheterization is planned once he is more stable, but renal function has declined necessitating renal replacement therapy (3) CHF exacerbation Plan: worsened by acute WA. monitor fluid volume status UF with dialysis as needed/tolerated (4) Pneumonia Plan: Currently on zosyn continues IV solumedrol CPAP trial today, on 55% Fi02 all cultures are negative s/p thoracentesis 03/03, 1500 ml drained (5) Type 2 diabetes mellitus Plan: continue insulin therapy blood sugar has improved recommend 140-180 mg/dL (Katina Park) Plan patient was seen and examined. Agree with above assessment and plan. (Pablo Miner MD) Problem Qualifiers (1) CHF exacerbation: Qualified Code: I50.9 - Acute on chronic congestive heart failure, unspecified congestive heart failure type (2) Pneumonia: Qualified Code: J18.1 - Pneumonia of right lower lobe due to infectious organism Katina Park Mar 06, 2017 15:12 Pablo Miner MD Mar 09, 2017 10:43
[2017-03-06] MEDS ORDERED: Vancomycin Consult Pharmacy 1 EA OTHER SCH (15:45)
[2017-03-06] MEDS ORDERED: LEVOFLOXACIN 750 MG/DEXTROSE 150 ML IV ONE (16:00)
[2017-03-06] MEDS ORDERED: VANCOMYCIN INJ 1,000 MG in SODIUM CHLOR 0.9% 250 ML INJ 250 ML IV ONE (16:00)
[2017-03-06] MEDS: ASPIRIN EC 81 MG TABEC PO SCH (20:22)
[2017-03-06] MEDS: ATORVASTATIN 80 MG TAB PO SCH (20:29)
[2017-03-07] VITALS (19 sets, daily range): BP systolic 86–121; BP diastolic 50–60; PULSE 69–106; RESP 15–18; TEMP 98.5–99.6; O2SAT 91–100
[2017-03-07] MEDS: hydrALAZINE HCL 20 MG/ML VIAL IV PUSH SCH ×6 (00:39→20:33)
[2017-03-07] MEDS: PIPERACIL-TAZO 2.25 GM PREMIX 50 ML IV SCH ×4 (00:39→18:39)
[2017-03-07] MEDS: INSULIN NovoLIN REGULAR SUPPLEMENTAL SCALE SQ SCH ×6 (04:00→20:00)
[2017-03-07] MEDS: CHLORHEXIDINE GLUCONATE 2 % 1 PACK (2 CLOTHS) TOP SCH (04:00)
[2017-03-07] MEDS: RESP: ALBUTEROL 2.5 MG/IPRATROPIUM 0.5 MG NEB (SCH) INH ×7 (04:04→23:41)
[2017-03-07 05:33] LABS: APTT (PATIENT) 36.3 SEC (24.3-30.1)
[2017-03-07] MEDS: METOCLOPRAMIDE HCL 10 MG/2 ML VIAL IV PUSH SCH ×3 (06:01→21:05)
[2017-03-07] MEDS: ARTIFICIAL TEARS OPTH SOLN 15 ML BTL EACH EYE SCH ×3 (06:02→21:06)
[2017-03-07] MEDS: fentaNYL 2,500 MCG/NS 250 ML IV SCH (06:34)
[2017-03-07] MEDS: CHLORHEXIDINE 0.12% (ORAL KIT) 15 ML CUP MT SCH ×2 (08:27→20:35)
[2017-03-07] MEDS: LACTIC ACID (AMMONIUM LACTATE) 12% LOTION 225 GM BTL TOPICAL SCH ×2 (08:28→20:35)
[2017-03-07] MEDS: SODIUM CHLORIDE 0.9% FLUSH 10 ML FLUSH IV FLUSH SCH ×2 (08:28→20:31)
[2017-03-07] MEDS: ALBUMIN HUMAN 25% 25 GM/100 ML BAGP IV PRN ×2 (08:54→08:56)
[2017-03-07] MEDS: SODIUM CHLOR 0.9% 1000 ML INJ 1,000 ML IV PRN (08:54)
[2017-03-07] MEDS: MANNITOL 12.5 GM/50 ML VIAL IV PRN (08:54)
[2017-03-07] MEDS: HEPARIN SODIUM - IV 10,000 UNITS/10 ML VIAL PRN (08:55)
[2017-03-07] MEDS: GENTAMICIN SULFATE (DIALYSIS USE ONLY) 20 MG/2 ML VIAL IV PRN (08:56)
[2017-03-07] MEDS: SENNOSIDES SYRUP 8.8 MG/5 ML CUP PO SCH ×2 (09:00→20:32)
[2017-03-07] MEDS: BENEPROTEIN POWDER 1 PACK G-TUBE SCH ×3 (09:00→18:00)
[2017-03-07] MEDS: DOCUSATE SODIUM 100 MG CAP PO SCH ×2 (09:00→20:33)
[2017-03-07] MEDS: INSULIN DETEMIR 100 UNITS/ML VIAL SQ SCH ×2 (09:17→20:32)
[2017-03-07] MEDS ORDERED: AMIODARONE INJ 900 MG in D5W 500 ML (EXCEL BAG) 482 ML IV SCH (10:00)
[2017-03-07] MEDS ORDERED: AMIODARONE INJ 150 MG in DEXTROSE 5% IN WATER 100ML INJ 97 ML IV ONE ×2 (10:00)
--- NOTE | 2017-03-07 10:56 | EC ---
Study Study Date:03/06/2017 STUDY CONCLUSIONS SUMMARY - Left ventricle: The cavity size was mildly dilated. Wall thickness was increased in a pattern of mild LVH. There was concentric hypertrophy. Systolic function was severely reduced. The estimated ejection fraction was in the range of 20% to 25%. Diffuse hypokinesis. - Aortic valve: Valve mobility was mildly restricted. There was mild to moderate stenosis. Valve area: 1.37cm^2(VTI). Valve area: 1.13cm^2 (Vmax). - Mitral valve: Mild regurgitation. - Left atrium: The atrium was mildly dilated. - Right ventricle: The cavity size was mildly dilated. - Atrial septum: No defect or patent foramen ovale was identified. - Tricuspid valve: Mild regurgitation. - Pulmonary arteries: PA peak pressure: 69mm Hg (S). Impressions: No colorflow noted across the ventricular septum concerning for a VSD. No papillary muscle ruptures noted. If LV function is below 40, please consider prescribing an ACEI or ARB or document rationale for non-use. PROCEDURE DATA STUDY STATUS: Elective. Procedure: Transthoracic echocardiography. Image quality was good. Scanning was performed from the parasternal, apical, and subcostal acoustic windows. Study completion: The patient tolerated the procedure well. Transthoracic echocardiography. M-mode, complete 2D, complete spectral Doppler, and color Doppler. Patient status: Inpatient. CARDIAC ANATOMY LEFT VENTRICLE: The cavity size was mildly dilated. Wall thickness was increased in a pattern of mild LVH. There was concentric hypertrophy. Systolic function was severely reduced. The estimated ejection fraction was in the range of 20% to 25%. Diffuse hypokinesis. The study is not technically sufficient to allow evaluation of LV diastolic function. AORTIC VALVE: Mildly calcified leaflets. Valve mobility was mildly restricted. Doppler: There was mild to moderate stenosis. No significant regurgitation. Valve area: 1.37cm^2(VTI). Valve area: 1.13cm^2 (Vmax). Mean gradient: 11mm Hg (S). Peak gradient: 20mm Hg (S). MITRAL VALVE: Mildly thickened leaflets, . Doppler: There was no evidence for stenosis. Mild regurgitation. Peak gradient: 6mm Hg (D). LEFT ATRIUM: The atrium was mildly dilated. ATRIAL SEPTUM: No defect or patent foramen ovale was identified. RIGHT VENTRICLE: The cavity size was mildly dilated. PULMONIC VALVE: Not well visualized. TRICUSPID VALVE: The valve appears to be grossly normal. Doppler: There was no evidence for stenosis. Mild regurgitation. PERICARDIUM: There was no pericardial effusion. BASIC MEASUREMENTS ADULT Normal Left ventricle LV internal dimension, ED, chordal level, 51.5 mm 43-52 PLAX LV internal dimension, ES, chordal level, *46.7 mm 23-38 PLAX Fractional shortening, chordal level, PLAX *9 % >29 LV posterior wall thickness, ED 15.1 mm IVS/LVPW ratio, ED 1.07 <1.3 Ventricular septum Septal thickness, ED 16.1 mm Aortic valve Leaflet separation *12 mm 15-26 Right ventricle RV internal dimension, ED, PLAX 29.6 mm 19-38 BASIC MEASUREMENTS ADULT Normal Aortic valve Leaflet separation *12 mm 15-26 Aorta Root diameter, ED 31 mm 20-37 Left atrium Anterior-posterior dimension, ES *47 mm 19-40 LA/aortic root ratio 1.52 DOPPLER MEASUREMENTS ADULT Normal Main pulmonary artery Pressure, S *69 mm Hg =30 Aortic valve Peak velocity, S 226 cm/s Mean velocity, S 156 cm/s VTI, S 39.4 cm Mean gradient, S 11 mm Hg Peak gradient, S 20 mm Hg Valve area, VTI 1.37 cm^2 Valve area, Vmax 1.13 cm^2 Mitral valve Peak E-wave velocity 122 cm/s Peak A-wave velocity 92.8 cm/s Peak gradient, D 6 mm Hg Peak E/A ratio 1.3 Tricuspid valve Regurgitant peak velocity 385 cm/s Peak RV-RA gradient, S 59 mm Hg Maximal regurgitant velocity 385 cm/s Systemic veins Estimated CVP 10 mm Hg Right ventricle RV pressure, S *69 mm Hg <30 LEGEND: Mean values are shown as u=mean value. Asterisk (*) jacques values outside specified normal range. Prepared and signed by Robinson Malloy [id number]
[2017-03-07] MEDS: MIDAZOLAM 100 MG/NS 100 ML DRIP Premix IV SCH (11:02)
[2017-03-07] MEDS: AMIODARONE INJ 450 MG in D5W (EXCEL BAG) 241 ML IV SCH ×2 (11:02→18:40)
[2017-03-07] MEDS: methylPREDNISolone SOD SUCC 40 MG/1 ML VIAL IV PUSH SCH ×2 (11:04→20:31)
[2017-03-07] MEDS: THIAMINE INJ 100 MG in SODIUM CHLORIDE 0.9% INJ 100 ML IV SCH (11:04)
[2017-03-07] MEDS: CALCIUM ACETATE 667 MG CAP PO SCH ×3 (11:05→18:40)
[2017-03-07] MEDS: PANTOPRAZOLE SODIUM 40 MG VIAL IV SCH (11:05)
[2017-03-07] MEDS: FOLIC ACID 1 MG TAB PO SCH (11:05)
[2017-03-07] MEDS: MULTIVITAMIN TAB PO SCH (11:06)
--- NOTE | 2017-03-07 11:37 | PD.CARD.PN ---
Subjective Subjective Remarks Sedated Objective Medications Current Medications Medications (Trade) Dose Ordered Sig/Steve Route Start Time Stop Time Status Last Admin (NS Flush) 2 ml UNSCH PRN IV FLUSH 02/24/17 22:00 (NS Flush) 2 ml BID IV FLUSH 02/25/17 09:00 03/07/17 08:28 (Narcan Inj) 0.4 mg UNSCH PRN IV 02/24/17 22:00 (Mucinex Er) 600 mg BID PO 02/25/17 13:00 Hold 02/25/17 20:51 (Tessalon) 200 mg Q8H PRN PO 02/25/17 13:00 Hold (Lasix Inj) 40 mg BID@09,18 IV PUSH 02/25/17 18:00 Hold 02/25/17 17:44 (Ecotrin Ec) 81 mg HS PO 02/25/17 21:00 03/06/17 20:22 (Lipitor) 80 mg HS PO 02/25/17 21:00 03/06/17 20:29 (Symbicort 160-4.5 Inh) 2 puff BID INH 02/25/17 21:00 Hold 02/25/17 20:51 (Toprol Xl) 200 mg DAILY PO 02/26/17 09:00 Hold Chlorhexidine Gluconate 15 ml 15 ml BID@08,20 MT 02/26/17 08:00 03/07/17 08:27 (NS 1000 ml Inj) 1,000 ml @ 84 mls/hr [id number] IV 02/26/17 01:18 Hold 02/26/17 01:18 (Tylenol) 650 mg Q6H PRN PO 02/26/17 01:30 (Protonix Inj) 40 mg DAILY IV 02/26/17 09:00 03/07/17 11:05 (Zofran Inj) 4 mg Q6H PRN IV 02/26/17 01:30 (Colace) 100 mg BID PO 02/26/17 09:00 03/06/17 20:20 Miscellaneous Information 1 Q361D XX 02/26/17 01:30 02/26/17 01:30 (Chlorhexidine 2% Cloth) Taper DAILY@04 TOP 02/26/17 04:00 02/22/18 03:59 03/07/17 04:00 Chlorhexidine Gluconate 3 pack 3 pack UNSCH PRN TOP 02/26/17 01:30 Propofol 100 ml @ 0 mls/hr TITRATE IV 02/26/17 01:30 Hold 03/05/17 23:07 Fentanyl Citrate 250 ml @ 0 mls/hr TITRATE IV 02/26/17 03:00 03/07/17 06:34 Midazolam HCl 100 ml @ 0 mls/hr TITRATE IV 02/26/17 03:00 03/07/17 11:02 (Thiamine Inj/NS Inj) 101 ml @ 101 mls/hr DAILY IV 03/01/17 09:00 03/07/17 11:04 (Folate) 1 mg DAILY PO 03/01/17 09:00 03/07/17 11:05 (Theragran) 1 tab DAILY PO 03/01/17 09:00 03/07/17 11:06 (Senna Liq) 8.8 mg BID PO 02/28/17 21:00 03/06/17 20:20 (Lac-Hydrin 12% Lotion) 1 applic BID TOPICAL 02/28/17 21:00 03/07/17 08:28 (Beneprotein Powder) 1 pack TID G-TUBE 02/28/17 13:00 03/07/17 09:00 (Tears Naturale Opth Soln) 1 drop Q8HR EACH EYE 02/28/17 14:00 03/07/17 06:02 (Glycerin Adult Supp) 2 gm BID PRN RECTAL 03/01/17 08:30 Insulin Detemir 40 units 40 units Q12HR SQ 03/02/17 11:00 03/07/17 09:17 (Heparin-NS/Pf Inj) 500 ml @ 0 mls/hr Q0M IART 03/02/17 14:07 (D50w (Vial) Inj) 25 ml UNSCH PRN IV PUSH 03/03/17 08:45 (Glucagon Inj) 1 mg UNSCH PRN OTHER 03/03/17 08:45 (NovoLIN R SUPPLEMENTAL SCALE) 1 Q4HR SQ 03/03/17 12:00 03/07/17 08:00 Hydralazine HCl 20 mg 20 mg Q4H IV PUSH 03/04/17 09:15 03/05/17 08:42 (Zosyn 2.25 Gm Premix) 50 ml @ 100 mls/hr Q6H IV 03/04/17 12:30 03/07/17 06:00 (Phoslo) 1,334 mg TID PO 03/04/17 13:00 03/07/17 11:05 Methylprednisolone Sodium Succinate 20 mg 20 mg BID IV PUSH 03/04/17 21:00 03/07/17 11:04 (NS 1000 ml Inj) 1,000 ml @ 0 mls/hr Q0M PRN IV 03/05/17 08:26 03/07/17 08:54 Heparin Sodium (Porcine) 8000 units 8,000 units UNSCH PRN IVF 03/05/17 08:30 Sodium Chloride 1,000 ml @ 200 mls/hr Q5H PRN IV 03/05/17 08:26 (NS 1000 ml Inj) 1,000 ml @ 0 mls/hr Q0M PRN IV 03/05/17 08:26 (Mannitol Inj) 12.5 gm UNSCH PRN IV 03/05/17 08:30 03/07/17 08:54 (Albumin 25% Inj) 25 gm UNSCH PRN IV 03/05/17 08:30 03/07/17 08:56 (NS Flush) 5 ml UNSCH PRN IV FLUSH 03/05/17 08:30 (Heparin Inj) UNSCH PRN .XX 03/05/17 08:30 03/07/17 08:55 (Gentamicin (Dialysis) Inj) 20 mg UNSCH PRN IV 03/05/17 08:30 03/07/17 08:56 (Zofran Inj) 4 mg UNSCH PRN IV 03/05/17 08:30 (Tylenol) 650 mg UNSCH PRN PO 03/05/17 08:30 (Benadryl) 25 mg UNSCH PRN PO 03/05/17 08:30 (Nitrostat Sl) 0.4 mg UNSCH PRN SL 03/05/17 08:30 (Catapres) 0.1 mg UNSCH PRN PO 03/05/17 08:30 (Gelfoam 12 Mm/7 Mm Top) 1 foam UNSCH PRN TOP 03/05/17 08:30 Metoclopramide HCl 5 mg 5 mg Q8HR IV PUSH 03/06/17 08:30 03/07/17 06:01 Levofloxacin/ Dextrose 100 ml @ 100 mls/hr Q48H IV 03/08/17 16:00 (Cordarone Inj/ D5W ([place] Pool) Inj) 250 ml @ 0 mls/hr CONTINUOUS IV 03/07/17 10:30 03/07/17 11:02 Vital Signs / I&O Vital Signs Date Time Temp Pulse Resp B/P Pulse Ox O2 Delivery O2 Flow Rate FiO2 03/07/17 08:30 98 70 03/07/17 08:00 99.2 94 18 91/55 98 03/07/17 06:00 104 03/07/17 04:18 98 55 03/07/17 04:00 99.0 81 15 86/50 97 03/07/17 04:00 81 03/07/17 04:00 55 03/07/17 02:00 105 03/07/17 01:01 96 55 03/07/17 00:00 99.6 106 17 121/60 95 03/07/17 00:00 106 03/07/17 00:00 55 03/06/17 22:00 94 03/06/17 20:00 99.0 112 24 136/66 93 03/06/17 20:00 112 03/06/17 20:00 55 03/06/17 19:22 92 55 03/06/17 18:00 91 03/06/17 16:47 92 55 03/06/17 16:00 96 03/06/17 16:00 99.0 96 17 91/53 96 03/06/17 16:00 55 03/06/17 14:00 109 03/06/17 12:25 55 03/06/17 12:04 95 60 03/06/17 12:00 55 03/06/17 12:00 98.9 110 20 127/65 98 03/06/17 12:00 110 I/O 03/06/17 03/06/17 03/06/17 03/07/17 03/07/17 03/07/17 07:00 15:00 23:00 07:00 15:00 23:00 Intake Total 659 ml 722 ml 140 ml 279 ml Output Total 75 ml 5008 ml 40 ml 126 ml 4000 ml Balance 584 ml -4286 ml 100 ml 153 ml -4000 ml IV Total 235 ml 415 ml 109 ml 84 ml Tube Feeding 424 ml 157 ml 31 ml 195 ml Other 150 ml Output Urine Total 75 ml 7 ml 0 ml 125 ml Stool Total 0 ml 1 ml 0 ml 1 ml Gastric Drainage Total 40 ml Hemodialysis 5000 ml 4000 ml Physical Exam Sedated. On IV amio, versed, fenatanyl IV heparin D/C'd due to bloody endotracheal secretions Dialysis today 4 liters off Diarrhea note Off Levofed since Thursday Morbidly obese Chest diminished BS CV distant S1S2 SR in 90's, occas PVC's, 7 beats VT 9:52AM Laboratory Laboratory Tests Test 03/07/17 04:30 Activated Partial 36.3 SEC Thromboplast Time Random Vancomycin Level 16.3 COMMENT Assessment and Plan Problem List: (1) NSTEMI (non-ST elevated myocardial infarction) Assessment and Plan: Possible cath by Dr. Butts when more stable (2) Acute CHF Assessment and Plan: 4 liters removed today (3) Shock Assessment and Plan: off Levofed (4) Atrial fibrillation Assessment and Plan: Back in sinus Fady Chakraborty MD Mar 07, 2017 11:37
[2017-03-07] MEDS: RESP: BUDESONIDE 0.5 MG/2 ML NEB NEB SCH ×2 (12:09→20:22)
--- NOTE | 2017-03-07 13:07 | HHI.CCPN ---
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 Upon arrival to F pod discovered that patient was awake and normotensive, with sinus tachycardia in the 150s in severe respiratory distress. He had not lost a pulse but [facility] had been called to facilitate rapid evaluation and stabilization. 76-year-old male with past history of obesity, COPD, obstructive sleep apnea on CPAP, CHF, peripheral neuropathy, hypertension, diabetes, hyperlipidemia, obesity who receives medical care at the [facility]. He presented to [facility] emergency department 02/25/17 with falls and difficulty with balance. He also reported that he was having shortness of breath and cough for several days. Was not febrile in hospital. On the day of admission he had some chest pain across his chest. Troponins negative. He was treated for pneumonia with Rocephin and azithromycin. He was placed on steroids Solu-Medrol 60 mg IV every 6 hours. Received Lasix at about 6 PM on due to concern for volume overload. Echo had poor images but systolic function appeared reduced. Tonight he developed acutely worsening shortness of breath and Dr. Galicia presented to the emergency Department to evaluate him where he was found to be tachypneic and wheezing. He was given a neb and preparations were being made to place him on BiPAP. He was becoming less responsive and was looking upward when I arrived and respiratory was placing on Bipap. He was in extremis and it was felt he would need emergent intubation prior to transfer to ICU. He denied chest pain. He was preoxygenated on Bipap, did seem to become more alert and nodded that he agreed with proceeding with intubation. He was intubated in F pod and then [place] [facility] [place] [facility] was in atrial fibrillation in the 130s. SBP was 90/50 then 64/40. Central line was placed and he converted to sinus tachycadia in 101-130s. Subsequently he was normotensive with MAP 71. He was also sedated with propofol during the hypotension, improved after transition to fentanyl drip. 02/27: PA catheter placed yesterday. PA catheter readings are more consistent distributive/septic shock with high cardiac output with low SVR. CO 10-11. CI 2.8 SVRI [id number]. D/W Dr Butts. Will hold off Flolan challenge at this time for high PA pressure- mean 59-60. After weaning pressors, PA mean pressure is about 40. Patient's hemodynamics have improved, vasopressin is off now, Levophed is at 4 mics per minute. Give Bumex 2 mg 1 on Bumex drip at 2 mg per hour per Dr. Miner 02/28: Afebrile. Arousable on the vent and moves 4 extremities spontaneously but doesn't follow commands. No bowel movement since admission. Currently nothing by mouth. Remains on low-dose vasopressors including vasopressin and Levophed 03/01: [place] Luisa catheter removed yesterday. Adequate urine output on Bumex drip at 1 mg an hour. Afebrile. Currently replaced potassium. 03/02: Afebrile. Bumex drip has been discontinued. Currently replaced potassium. Positive BM overnight. We'll attempt spontaneous breathing trials today. 03/03: Afebrile. Adequate urine output. Positive BM. Tolerating tube feeds. Heparin drip for thoracentesis. Eyes are open but not following commands. Continues on Versed and fentanyl drips. 03/04: Afebrile. Status post thoracentesis yesterday -1150 years transudative. Positive BM 1. Tolerating tube feeding. Hypertensive. Hydralazine added per cardiology. 03/05: Patient remains intubated sedated. Bedside ultrasound shows Moderate left pleural effusion. Agitated on lightening sedation 03/06: Remains intubated sedated. Overnight FiO2 had to increaseto 100 % due to desaturation, now reduced to 60% again. Chest x-ray shows bilateral pulmonary edema. Nephrology contacted- hemodialysis today with attempt at 4L removal. Status post bedside thoracentesis (Left side) yesterday with 1L transudative fluid removal Subjective 03/07: Tmax 99.2. Currently 99. Positive bloody secretions from ET tube. Heparin drip has been off since yesterday. Desaturated overnight FiO2 currently down to 40%. PEEP set at.8. Resting in bed in no acute distress. Eyes open and moves all 4 extremity spontaneously but not following commands. Objective Vital Signs Date Time Temp Pulse Resp B/P Pulse Ox O2 Delivery O2 Flow Rate FiO2 03/07/17 08:30 98 70 03/07/17 08:00 99.2 94 18 91/55 Intake and Output 03/06/17 03/06/17 03/07/17 08:00 16:00 00:00 Intake Total 659 ml 722 ml 140 ml Output Total 75 ml 5008 ml 40 ml Balance 584 ml -4286 ml 100 ml Result Diagram: 03/06/17 0420 03/06/17 0420 Other Results Microbiology Date/Time Procedure Status Source Growth 03/06/17 09:30 Gram Stain - Final Resulted Sputum Endotracheal 03/06/17 09:30 Sputum Culture Resulted Sputum Endotracheal Pending 03/05/17 10:30 Fungal Smear - Final Resulted Fluid Pleural Fluid NO FUNGAL ELEMENTS SEEN. 03/05/17 10:30 Fungal Culture Resulted Fluid Pleural Fluid Pending 03/05/17 10:30 Acid Fast Stain - Final Resulted Fluid Pleural Fluid NO ACID FAST BACILLI SEEN 03/05/17 10:30 Mycobacterial Culture Resulted Fluid Pleural Fluid Pending Imaging Last Impressions Chest X-Ray 03/06/17 0600 Signed Impressions: Service Date/Time: Monday, March 06, 2017 03:47 - CONCLUSION: Worsening bilateral consolidation likely relating to pulmonary edema. Adams Galicia Jr., MD Abdomen X-Ray 03/04/17 0000 Signed Impressions: Service Date/Time: Saturday, March 04, 2017 13:27 - CONCLUSION: NG tube tip and side-port within the stomach. Adams Powell MD Thoracentesis 03/03/17 0000 Signed Impressions: Service Date/Time: Friday, March 03, 2017 14:09 - CONCLUSION: Uncomplicated CT-guided right thoracentesis. Cash Cowan MD Chest CT 03/02/17 0000 Signed Impressions: Service Date/Time: Thursday, March 02, 2017 11:42 - CONCLUSION: Large bilateral pleural effusions and bibasilar consolidation and/or compressive collapse not present on the study from 2015. Travis Nguyen MD Lower Extremity Ultrasound 02/27/17 0000 Signed Impressions: Service Date/Time: Monday, February 27, 2017 09:13 - CONCLUSION: Normal examination. Evaristo Massey MD Head CT 02/24/17 0000 Signed Impressions: Service Date/Time: Friday, February 24, 2017 18:59 - CONCLUSION: 1. No acute hemorrhage or mass effect. 2. Acute sinusitis in the left maxillary sinus. Raul Craig MD Cervical Spine MRI 02/24/17 0000 Signed Impressions: Service Date/Time: Friday, February 24, 2017 22:46 - CONCLUSION: 1. Small central protrusion at C4-5 without canal stenosis. 2. Small central protrusion at C3-4 with minimal extruded component. 3. Mild broad-based disc bulges at C5- 6 and C6-7 levels without canal stenosis. Neto Duenas MD Cervical Spine CT 02/24/17 0000 Signed Impressions: Service Date/Time: Friday, February 24, 2017 19:02 - CONCLUSION: 1. Moderate narrowing of left neural foramina at the C3-4 level secondary to hypertrophic change involving the facet joint. 2. Mild degenerative change at the C5-6 and C6-7 levels. 3. Mild disc osteophyte complex at C5-6 with mild narrowing of the neural foramina. Raul Craig MD Brain MRI 02/24/17 0000 Signed Impressions: Service Date/Time: Friday, February 24, 2017 22:46 - CONCLUSION: 1. No acute intracranial abnormality. 2. Left maxillary sinus disease. 3. No acute infarction. Neto Duenas MD Objective Remarks GENERAL: 56-year-old male, critically ill currently orotracheally intubated with bloody secretions SKIN: Warm and dry. No rash HEAD: Atraumatic. Normocephalic. EYES: Pupils equal and round 3-4 mm and reactive bilaterally. No scleral icterus. No injection or drainage. ENT: Orotracheally intubated NECK: Trachea midline. Right Subclavian, LIJ hemodialysis catheter clean dry and intact CARDIOVASCULAR: RRR. S1, S2. No S4. Faint 1/6 systolic murmur right upper sternal border RESPIRATORY: Few crackles appreciated bilaterally. Left greater than right Symmetrical excursion. GASTROINTESTINAL: Abdomen obese, protuberant, small umbilical reducible hernia. Bowel sounds are hypoactive. MUSCULOSKELETAL: Extremities with much improved lower extremity edema . Chronic venous stasis/lymphedema NEUROLOGICAL: Eyes are open. Positive corneal reflex. Positive gag. Moves all 4 extremity spontaneously but not following commands. Withdraws to pain upper and lower extremities bilaterally. A/P Assessment and Plan NEURO/PSYCH: Acute encephalopathy - secondary to hypercapnia and hypoxemia Peripheral neuropathy Allergic rhinitis Currently on propofol at 10 mcg/kg/m and Fentanyl at 50 mg per hour for sedation /analgesia while intubated. Goal of RASS -2. Daily sedation vacation MRI brain 02/24 - no acute abnormality MRI C-spinesmall central protrusion at C3/C4 with mild extruded central spinal cord C4-C5 without canal stenosis with mild disc bulging C5/6 and C6/7 EEG 02/27 revealed moderate to severe encephalopathy. No epileptiform activity Questionable history of EtOH use/abuse. We'll continue on thiamine/folate and multivitamin today Neurontin level2.3. Previously on 600 mg 3 times a day for shingles pain management. Currently on hold Holding Flonase twice a day/Zyrtec 5 mill grams daily. Resume as clinically indicated RESP: Acute hypoxemic and hypercapnic respiratory failure Acute COPD exacerbation Bilateral large pl effusions History of asthma? Acute on chronic pulmonary artery hypertension Objective sleep apnea - noncompliant with CPAP History of tobacco abuse [facility] /1.12/21/39. Ventilator bundle DuoNeb every 4 hours with albuterol every 2 hours when necessary Continue Pulmicort 0.5/2 one inhalation twice a day Solumedrol 20 milligrams every q12 to be weaned over the next several days s/p thoracentesis left-sided 03/05 with 1L removed -transudate Right thoracentesis 03/03 likely transudative. -1150 Home medication regimen is Symbicort 160/4.5 to press twice a day, Spiriva 18 inhalation daily and Ventolin 4 times a day with duo nebs aerosols for breakthrough every 4 hours when necessary According to records, noncompliant with CPAP for SEBASTIAN Airway edema noted particularly large arytenoid edema noted on intubation 02/26 with anterior airway. Intubated with Glidescope and 7.5 ETT. Cardiovascular: Pulmonary edema Shock, distributive/septic resolved Acute on chronic systolic heart failure EF 25-30% Moderate Moderate to severe TR NSTEMI Paroxysmal atrial fibrillation/flutter History of Hypertension Hyperlipidemia History of coronary artery disease Currently off all vaso pressors. Additional fl removal today with HD (target 3L) PAC placed 02/26-initially distributive shock (CI 2.8, SVRI 1300). Cardiac index at 2.1. 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 Butts IV heparin for NSTEMI and A Fib rate Bumex 2 mg IV 1 02/27 and initiated Bumex infusion currently discontinued as of 03/03 Continue aspirin 81 mg daily Switched amiodarone 400 milligrams by mouth twice a day and amiodarone drip secondary to 7 beat of V. tach at 0953 today Troponin peaked at 27. Left heart catheterization when clinically stable Continue atorvastatin 80 mg daily at bedtime for dyslipidemia Unable to use beta charles secondary due to hypotension. On Lopressor 200 mg daily at home. Other blood pressures include lisinopril 40 mg daily and HCTZ 12.5 mg daily. On hold due to acute kidney injury Started hydralazine 20 milligrams IV every [address] Butts Echo 02/27: - Systolic function was severely reduced 25% to 30%. Diffuse hypokinesis. -Aortic valve: moderate stenosis. Tricuspid valve: Moderate/severe regurgitation. SUZAN 70 mmHg Echo 03/06 -- Left ventricle: The cavity size was mildly dilated. Wall thickness was increased in a pattern of mild LVH. There was concentric hypertrophy. Systolic function was severely reduced. The estimated ejection fraction was in the range of 20% to 25%. Diffuse hypokinesis. - Aortic valve: Valve mobility was mildly restricted. There was mild to moderate stenosis. Valve area: 1.37cm^2 (VTI). Valve area: 1.13cm^2 (Vmax). - Mitral valve: Mild regurgitation. - Left atrium: The atrium was mildly dilated. - Right ventricle: The cavity size was mildly dilated. - Atrial septum: No defect or patent foramen ovale was identified. - Tricuspid valve: Mild regurgitation. - Pulmonary arteries: PA peak pressure: 69mm Hg (S). Impressions: No colorflow noted across the ventricular septum concerning for a VSD. No papillary muscle ruptures noted. GI: Constipation Glucerna 1.5 goal 55 cc an hour Protonix 40 mg IV daily Colace and Senokot twice a day for bowel regimen Having BM Start Reglan 5 every 8 for high residual Check KUB/lipase. LFTs normal yesterday : BPH Holding doxazosin 8 mg daily light of hypotension Maintain Barrios for accurate I's and O's in a critically ill patient FEN/RENAL: Acute kidney injury/ATN Monitor intake and output. Monitor electrolytes Bumex discontinued HD started 03/05, 2L fluid removed. Hemodialysis is planned for today again with 3 L targeted removal ID: Acute community acquired pneumonia Septic shock-resolved Continue Zosyn. discontinued his Zithromax after 8 days. Microbiology: lood culture 2 setsno growth to date 02/25sputum - no growth 02/25urine Legionella and pneumococcal antigen negative 02/25influenza screen negative 02/26 - urine - no growth 02/26 - blood cultures 2 - no growth 03/06: Repeat sputum culture Likely de-escalate antibiotics next 24-48 hours HEME: Normocytic anemia No indication for transfusion of blood products at this time Continue IV heparin drip for A. fib/nonsustained ENDO: Poorly controlled diabetes mellitus - hemoglobin A1c of 8.6 Levemir 40 units twice a day with sliding scale insulin 4/moderate regimen. 8 units sliding scale insulin past 24 hours At home on Lantus 35 units twice a day and Novulin R 15 units 3 times a day with meals MSK Chronic lymphedema Osteoporosis/osteoarthritis Lac-Hydrin twice a day for lower extremity lymphedema 02/27 venous Dopplers showed no DVT Hold Risedronate 35 mg mg weekly for osteoporosis PROPH: Protonix 40 mg IV daily for stress ulcer prophylaxis. Heparin drip has been held secondary to bloody secretions ACCESS: Right subclavian central venous line placed 02/26 #10 Right IJ Cordis/day #4 discontinued 03/02 LIJ Vascath placed 03/05/17 day #3 Full code Critical Care: The total critical care time was 35 minutes. Time to perform other separately billable procedures was not included in the critical care time. I discussed with at bedside. Care plan discussed all questions answered -> .Noni Stokes. Planned bronchoscopy today for hemoptysis. Ramo Almaraz MD Mar 07, 2017 13:07
--- NOTE | 2017-03-07 14:27 | RADRPT ---
EXAM DATE/TIME: 03/07/2017 13:26 [facility] COMPARISON: ABDOMEN KUB ONLY, March 02, 2017, 4:03. INDICATIONS : Nausea, vomiting starting today MEDICAL HISTORY : None. SURGICAL HISTORY : None. ENCOUNTER: Initial ACUITY: 1 day PAIN SCORE: Non-responsive. LOCATION: Bilateral abdomen FINDINGS: Supine view of the abdomen was performed. The abdominal bowel gas pattern is normal. No abnormal ma sses, calcifications, or organomegaly is seen. The osseous structures are unremarkable. CONCLUSION: No acute disease. Bg Faust MD on March 07, 2017 at 14:25 Board Certified Radiologist. This report was verified electronically.
[2017-03-07] MEDS ORDERED: ROCURONIUM INJ 100 MG/10 ML VIAL IV ONE (16:30)
[2017-03-07] MEDS ORDERED: MIDAZOLAM HCL 5 MG/ML VIAL (1 ML) IV PUSH ONE (16:30)
[2017-03-07] MEDS ORDERED: EPINEPHrine HCL (1:10,000) 1 MG/10 ML SYRINGE ONE (17:10)
--- NOTE | 2017-03-07 17:41 | PD.PROCEDR ---
Procedure Note Procedure DATE: 03/07/2017 Flexible Fiberoptic bronchoscopy: Postoperative diagnosis Mucous plugging right bronchus intermedius Bloody secretions cleared with suctioning of sterile saline INDICATION: Bloody secretions from ET tube CONSENT Informed consent for procedure was obtained. DESCRIPTION OF THE PROCEDURE Patient was on PRVC ventilation with FiO2 100%. 15/600/1.1/10/100%. Anesthesia provided with fentanyl drip@70 mg an hour, Versed 7 mg an hour. Received 50 fentanyl IV, 5 mill grams Versed IV and 50 mill grams rocuronium 1. I entered the 7.5 ET tube with the flexible bronchoscope. Thick white secretions within the ET tube. The gwendolyn was sharp. Copious bloody secretions and hyperdynamic airway were noted beginning with the left mainstem bronchus and these findings were noted also in the lingula/lower lobe. These were irrigated with copious stools saline to clear. No obvious source of bleeding was noted. One area suction trauma noted in the lingula which lavaged and did not appear actively bleeding. The patient's saturation dropped to 90% and the scope was withdrawn. Weighted for saturations to rise above 94%. Scope was introduced back into the 7.5 ET tube and thick bloody mucus plugging in the right mainstem just proximal to the left upper lobe. This was suctioned with copious sterile sequelae in sent in a Lukens trap for samplings. The right upper, middle lower lobes were all examined. Hyperdynamic airway. Friable mucosa noted throughout. The source of bleeding. These were all irrigated with serosanguineous with tiny white mucus plugging's in this second and third subsegments a new right upper, middle and lower lobes. Bronchoscope was removed and follow-up chest x-ray currently pending at time of dictation. ESTIMATED BLOOD LOSS: Minimal COMPLICATIONS: No apparent complications. STAT chest x-ray pending at time of dictation Ramo Almaraz MD Mar 07, 2017 17:41
--- NOTE | 2017-03-07 18:48 | RADRPT ---
EXAM DATE/TIME: 03/07/2017 17:32 [facility] COMPARISON: CHEST SINGLE AP, March 06, 2017, 13:41. INDICATIONS : Status post bronchoscopy. MEDICAL HISTORY : Pulmonary edema. SURGICAL HISTORY : None. ENCOUNTER: Initial ACUITY: 1 day PAIN SCORE: Non-responsive. LOCATION: Bilateral chest FINDINGS: Interval placement of endotracheal tube which is well above the gwendolyn. Gastric tube tip projects wi thin the stomach, but the side-port appears in the distal chest, approximately 3.6 cm above the expec chester location of the hemidiaphragm. Left internal jugular catheter tip and right subclavian catheter tip projects in the distal superior vena cava. There is increasing bilateral patchy areas of airspac e opacity sparing the right mid lung. Dense consolidation at the left lung base with loss of delinea tion of the entire left hemidiaphragm and meniscal interface suggesting associated pleural effusion i s stable in severity. CONCLUSION: 1. Increasing bilateral airspace infiltrates the mid and upper lungs. Stable left lower lobar consol idation. 2. ET tube in good position. 3. The side-port of the gastric tube is approximately 3.5 cm above the hemidiaphragm. The tube shoul d be advanced least 6 cm. Adams Powell MD on March 07, 2017 at 18:44 Board Certified Radiologist. This report was verified electronically.
[2017-03-07] MEDS ORDERED: ALBUMIN HUMAN 5% 25 GM/500 ML BOTTLE IV ONE (20:15)
[2017-03-07] MEDS: ATORVASTATIN 80 MG TAB PO SCH (20:32)
[2017-03-07] MEDS: ASPIRIN EC 81 MG TABEC PO SCH (20:34)
[2017-03-07 23:00] LABS: LAVAGE TOTAL WBC COUNT 211.5 MILLION (4.7-7.1)
[2017-03-07 23:01] LABS: BRONCHOALVEOLAR LAVAGE RBC 28800 /MM3; BRONCHOALVEOLAR LAVAGE WBC 14100 /MM3; BRONCHOAVEOLAR LYMPHOCYTES 1 %; BRONCHOAVEOLAR NEUTROPHILS 97 %
[2017-03-07 23:02] LABS: BRONCHOAVEOLAR HISTIOCYTES 2 %
[2017-03-07 23:07] LABS: MEAN CELL VOLUME 89.6 FL (80.0-100.0); MEAN CORPUSCULAR HEMOGLOBIN 30.5 PG (27.0-34.0); PLATELET COUNT 119 TH/MM3 (150-450); RED BLOOD COUNT 2.22 MIL/MM3 (4.50-5.90); RED CELL DISTRIBUTION WIDTH 14.4 % (11.6-17.2); WHITE BLOOD COUNT 7.2 TH/MM3 (4.0-11.0)
[2017-03-07 23:14] LABS: REVIEW FLAG FINAL
[2017-03-07 23:22] LABS: HEMATOCRIT 19.9 % (39.0-51.0)
[2017-03-07 23:53] LABS: BICARBONATE 29.3 MEQ/L (21.0-32.0); POTASSIUM 4.7 MEQ/L (3.5-5.1)
[2017-03-08] VITALS (23 sets, daily range): BP systolic 93–148; BP diastolic 50–72; PULSE 52–102; RESP 15–17; TEMP 97.9–98.5; O2SAT 75–100
[2017-03-08 00:28] LABS: REVIEW FLAG FINAL
[2017-03-08] MEDS: PIPERACIL-TAZO 2.25 GM PREMIX 50 ML IV SCH ×4 (00:32→17:42)
[2017-03-08] MEDS: MIDAZOLAM 100 MG/NS 100 ML DRIP Premix IV SCH (00:33)
[2017-03-08] MEDS: hydrALAZINE HCL 20 MG/ML VIAL IV PUSH SCH ×6 (00:35→21:01)
[2017-03-08] MEDS: RESP: ALBUTEROL 2.5 MG/IPRATROPIUM 0.5 MG NEB (SCH) INH ×6 (04:00→23:54)
[2017-03-08] MEDS: INSULIN NovoLIN REGULAR SUPPLEMENTAL SCALE SQ SCH ×6 (04:00→20:00)
[2017-03-08] MEDS: CHLORHEXIDINE GLUCONATE 2 % 1 PACK (2 CLOTHS) TOP SCH (04:00)
[2017-03-08] MEDS: METOCLOPRAMIDE HCL 10 MG/2 ML VIAL IV PUSH SCH ×3 (05:03→21:03)
[2017-03-08] MEDS: ARTIFICIAL TEARS OPTH SOLN 15 ML BTL EACH EYE SCH ×3 (05:03→21:03)
[2017-03-08 06:08] LABS: AUTOMATED NEUTROPHIL # 8.8 TH/MM3 (1.8-7.7); BASOPHIL % 0.1 % (0.0-2.0); HEMATOCRIT 23.2 % (39.0-51.0); HEMO FLAGS DIFF FINAL; LYMPH % 2.1 % (9.0-44.0); LYMPHOCYTE # 0.2 TH/MM3 (1.0-4.8); MEAN CELL VOLUME 88.3 FL (80.0-100.0); MEAN CORPUSCULAR HEMOGLOBIN 30.3 PG (27.0-34.0); MEAN CORPUSCULAR HGB CONC 34.3 % (32.0-36.0); MONO % 4.1 % (0.0-8.0); NEUT % 93.7 % (16.0-70.0); PLATELET COUNT 127 TH/MM3 (150-450); RED BLOOD COUNT 2.62 MIL/MM3 (4.50-5.90); RED CELL DISTRIBUTION WIDTH 14.3 % (11.6-17.2); WHITE BLOOD COUNT 9.4 TH/MM3 (4.0-11.0)
[2017-03-08 06:10] LABS: BLOOD GAS BASE EXCESS -2.1 mmol/L (-2-2); BLOOD GAS CARBOXYHEMOGLOBIN 1.6 % (0-4); BLOOD GAS HCO3 22 mmol/L (22-26); BLOOD GAS METHEMOGLOBIN 0.9 % (0-2); BLOOD GAS O2 HGB SATURATION 92 % (90-100); BLOOD GAS OXYGEN CONTENT 11.4 Vol % (12.0-20.0); BLOOD GAS PCO2 36 mmHg (38-42); BLOOD GAS PO2 75 mmHg (61-120); BLOOD GAS TOTAL HGB 8.8 G/DL (12.0-16.0); CRITICAL VALUE NO; TEMP CORR TO 98.6
[2017-03-08 06:11] LABS: DRAW SITE LT RADIAL; FIO2 50 %; NUMBER OF ARTERIAL PUNCTURES 2; STAT NO; ULNAR PULSE Y
[2017-03-08 07:04] LABS: BICARBONATE 26.4 MEQ/L (21.0-32.0); POTASSIUM 4.8 MEQ/L (3.5-5.1)
[2017-03-08] MEDS: CHLORHEXIDINE 0.12% (ORAL KIT) 15 ML CUP MT SCH ×2 (08:46→21:04)
[2017-03-08] MEDS: RESP: BUDESONIDE 0.5 MG/2 ML NEB NEB SCH ×2 (08:51→21:01)
[2017-03-08] MEDS: PANTOPRAZOLE SODIUM 40 MG VIAL IV SCH (08:57)
[2017-03-08] MEDS: methylPREDNISolone SOD SUCC 40 MG/1 ML VIAL IV PUSH SCH ×2 (08:57→21:02)
[2017-03-08] MEDS: INSULIN DETEMIR 100 UNITS/ML VIAL SQ SCH ×2 (08:58→21:01)
[2017-03-08] MEDS: CALCIUM ACETATE 667 MG CAP PO SCH ×3 (08:58→17:04)
[2017-03-08] MEDS: LACTIC ACID (AMMONIUM LACTATE) 12% LOTION 225 GM BTL TOPICAL SCH ×2 (08:58→21:01)
[2017-03-08] MEDS: SENNOSIDES SYRUP 8.8 MG/5 ML CUP PO SCH ×2 (08:58→21:01)
[2017-03-08] MEDS: FOLIC ACID 1 MG TAB PO SCH (08:58)
[2017-03-08] MEDS: MULTIVITAMIN TAB PO SCH (08:58)
[2017-03-08] MEDS: SODIUM CHLORIDE 0.9% FLUSH 10 ML FLUSH IV FLUSH SCH ×2 (08:59→21:02)
[2017-03-08] MEDS: DOCUSATE SODIUM 100 MG CAP PO SCH ×2 (08:59→21:00)
[2017-03-08] MEDS: BENEPROTEIN POWDER 1 PACK G-TUBE SCH ×3 (09:00→17:04)
[2017-03-08] MEDS: THIAMINE INJ 100 MG in SODIUM CHLORIDE 0.9% INJ 100 ML IV SCH (09:57)
--- NOTE | 2017-03-08 10:08 | PD.CARD.PN ---
Subjective Subjective Remarks on vent Objective Medications Current Medications Medications (Trade) Dose Ordered Sig/Steve Route Start Time Stop Time Status Last Admin (NS Flush) 2 ml UNSCH PRN IV FLUSH 02/24/17 22:00 (NS Flush) 2 ml BID IV FLUSH 02/25/17 09:00 03/08/17 08:59 (Narcan Inj) 0.4 mg UNSCH PRN IV 02/24/17 22:00 (Mucinex Er) 600 mg BID PO 02/25/17 13:00 Hold 02/25/17 20:51 (Tessalon) 200 mg Q8H PRN PO 02/25/17 13:00 Hold (Lasix Inj) 40 mg BID@09,18 IV PUSH 02/25/17 18:00 Hold 02/25/17 17:44 (Ecotrin Ec) 81 mg HS PO 02/25/17 21:00 03/06/17 20:22 (Lipitor) 80 mg HS PO 02/25/17 21:00 03/07/17 20:32 (Symbicort 160-4.5 Inh) 2 puff BID INH 02/25/17 21:00 Hold 02/25/17 20:51 (Toprol Xl) 200 mg DAILY PO 02/26/17 09:00 Hold Chlorhexidine Gluconate 15 ml 15 ml BID@08,20 MT 02/26/17 08:00 03/08/17 08:46 (NS 1000 ml Inj) 1,000 ml @ 84 mls/hr [id number] IV 02/26/17 01:18 Hold 02/26/17 01:18 (Tylenol) 650 mg Q6H PRN PO 02/26/17 01:30 (Protonix Inj) 40 mg DAILY IV 02/26/17 09:00 03/08/17 08:57 (Zofran Inj) 4 mg Q6H PRN IV 02/26/17 01:30 (Colace) 100 mg BID PO 02/26/17 09:00 03/06/17 20:20 Miscellaneous Information 1 Q361D XX 02/26/17 01:30 02/26/17 01:30 (Chlorhexidine 2% Cloth) Taper DAILY@04 TOP 02/26/17 04:00 02/22/18 03:59 03/08/17 04:00 Chlorhexidine Gluconate 3 pack 3 pack UNSCH PRN TOP 02/26/17 01:30 Propofol 100 ml @ 0 mls/hr TITRATE IV 02/26/17 01:30 Hold 03/05/17 23:07 Fentanyl Citrate 250 ml @ 0 mls/hr TITRATE IV 02/26/17 03:00 03/07/17 06:34 Midazolam HCl 100 ml @ 0 mls/hr TITRATE IV 02/26/17 03:00 03/08/17 00:33 (Thiamine Inj/NS Inj) 101 ml @ 101 mls/hr DAILY IV 03/01/17 09:00 03/08/17 09:57 (Folate) 1 mg DAILY PO 03/01/17 09:00 03/08/17 08:58 (Theragran) 1 tab DAILY PO 03/01/17 09:00 03/08/17 08:58 (Senna Liq) 8.8 mg BID PO 02/28/17 21:00 03/08/17 08:58 (Lac-Hydrin 12% Lotion) 1 applic BID TOPICAL 02/28/17 21:00 03/08/17 08:58 (Beneprotein Powder) 1 pack TID G-TUBE 02/28/17 13:00 03/08/17 09:00 (Tears Naturale Opth Soln) 1 drop Q8HR EACH EYE 02/28/17 14:00 03/08/17 05:03 (Glycerin Adult Supp) 2 gm BID PRN RECTAL 03/01/17 08:30 Insulin Detemir 40 units 40 units Q12HR SQ 03/02/17 11:00 03/08/17 08:58 (Heparin-NS/Pf Inj) 500 ml @ 0 mls/hr Q0M IART 03/02/17 14:07 (D50w (Vial) Inj) 25 ml UNSCH PRN IV PUSH 03/03/17 08:45 (Glucagon Inj) 1 mg UNSCH PRN OTHER 03/03/17 08:45 (NovoLIN R SUPPLEMENTAL SCALE) 1 Q4HR SQ 03/03/17 12:00 03/08/17 08:00 Hydralazine HCl 20 mg 20 mg Q4H IV PUSH 03/04/17 09:15 03/08/17 05:03 (Zosyn 2.25 Gm Premix) 50 ml @ 100 mls/hr Q6H IV 03/04/17 12:30 03/08/17 06:58 (Phoslo) 1,334 mg TID PO 03/04/17 13:00 03/08/17 08:58 Methylprednisolone Sodium Succinate 20 mg 20 mg BID IV PUSH 03/04/17 21:00 03/08/17 08:57 (NS 1000 ml Inj) 1,000 ml @ 0 mls/hr Q0M PRN IV 03/05/17 08:26 03/07/17 08:54 Heparin Sodium (Porcine) 8000 units 8,000 units UNSCH PRN IVF 03/05/17 08:30 Sodium Chloride 1,000 ml @ 200 mls/hr Q5H PRN IV 03/05/17 08:26 (NS 1000 ml Inj) 1,000 ml @ 0 mls/hr Q0M PRN IV 03/05/17 08:26 (Mannitol Inj) 12.5 gm UNSCH PRN IV 03/05/17 08:30 03/07/17 08:54 (Albumin 25% Inj) 25 gm UNSCH PRN IV 03/05/17 08:30 03/07/17 08:56 (NS Flush) 5 ml UNSCH PRN IV FLUSH 03/05/17 08:30 (Heparin Inj) UNSCH PRN .XX 03/05/17 08:30 03/07/17 08:55 (Gentamicin (Dialysis) Inj) 20 mg UNSCH PRN IV 03/05/17 08:30 03/07/17 08:56 (Zofran Inj) 4 mg UNSCH PRN IV 03/05/17 08:30 (Tylenol) 650 mg UNSCH PRN PO 03/05/17 08:30 (Benadryl) 25 mg UNSCH PRN PO 03/05/17 08:30 (Nitrostat Sl) 0.4 mg UNSCH PRN SL 03/05/17 08:30 (Catapres) 0.1 mg UNSCH PRN PO 03/05/17 08:30 (Gelfoam 12 Mm/7 Mm Top) 1 foam UNSCH PRN TOP 03/05/17 08:30 Metoclopramide HCl 5 mg 5 mg Q8HR IV PUSH 03/06/17 08:30 03/08/17 05:03 Levofloxacin/ Dextrose 100 ml @ 100 mls/hr Q48H IV 03/08/17 16:00 (Cordarone Inj/ D5W ([place]) Inj) 250 ml @ 0 mls/hr CONTINUOUS IV 03/07/17 10:30 03/07/17 18:40 Vital Signs / I&O Vital Signs Date Time Temp Pulse Resp B/P Pulse Ox O2 Delivery O2 Flow Rate FiO2 03/08/17 08:55 94 50 03/08/17 06:00 102 03/08/17 05:31 98.5 100 15 148/72 96 03/08/17 04:01 95 50 03/08/17 04:00 98.2 75 15 102/55 75 03/08/17 04:00 50 03/08/17 04:00 75 03/08/17 03:05 98.2 87 15 132/70 97 03/08/17 02:49 98.2 87 15 145/69 100 03/08/17 02:00 73 03/08/17 01:06 100 50 03/08/17 00:00 71 03/08/17 00:00 98.4 71 15 94/50 100 03/08/17 00:00 50 03/07/17 22:00 82 03/07/17 20:33 100 50 03/07/17 20:00 98.5 69 15 87/53 100 03/07/17 20:00 69 03/07/17 20:00 50 03/07/17 18:42 99 60 03/07/17 18:00 85 03/07/17 17:35 91 100 03/07/17 16:00 75 03/07/17 16:00 99.5 75 15 92/55 99 03/07/17 16:00 100 03/07/17 14:18 97 100 03/07/17 14:00 100 03/07/17 14:00 79 03/07/17 12:00 80 03/07/17 12:00 89 03/07/17 12:00 99.0 89 17 101/54 96 I/O 03/07/17 03/07/17 03/07/17 03/08/17 03/08/17 03/08/17 07:00 15:00 23:00 07:00 15:00 23:00 Intake Total 279 ml 705 ml 286 ml 413 ml Output Total 126 ml 4225 ml 25 ml 20 ml Balance 153 ml -3520 ml 261 ml 393 ml Intake Oral 0 ml 0 ml IV Total 84 ml 448 ml 283 ml 208 ml Tube Feeding 195 ml 257 ml 3 ml 205 ml Output Urine Total 125 ml 225 ml 25 ml 20 ml Stool Total 1 ml Hemodialysis 4000 ml # Bowel Movements 1 1 1 Physical Exam Sedated. Lifts arms and raises head per nurse On IV amio. Getting 3rd unit of PRBC's bloody endotracheal secretions are scant Off Levofed since Thursday Morbidly obese Chest diminished BS CV distant S1S2 SR in 90's, occas PVC's, 13 beats irregular VT 5:59AM Laboratory Laboratory Tests Test 03/07/17 03/07/17 03/07/17 03/08/17 17:20 21:19 23:30 01:06 Bronchoalveolar Lavage WBC 56403 /MM3 Bronchoalveolar Lavage RBC 28488 /MM3 Bronchoalveolar Lavage 97 % Neutrophils Bronchoalveolar Lavage 1 % Lymphocytes Bronchoalveolar Lavage 2 % Histiocytes Lavage Fluid Total Volume 15.0 ML Lavage Fluid Total WBC Count 211.5 MILLION White Blood Count 7.2 TH/MM3 Red Blood Count 2.22 MIL/MM3 Hemoglobin 6.8 GM/DL 6.2 GM/DL Hematocrit 19.9 % 19.0 % Mean Corpuscular Volume 89.6 FL Mean Corpuscular Hemoglobin 30.5 PG Mean Corpuscular Hemoglobin 34.0 % Concent Red Cell Distribution Width 14.4 % Platelet Count 119 TH/MM3 Mean Platelet Volume 9.2 FL Sodium Level 142 MEQ/L Potassium Level 4.7 MEQ/L Chloride Level 100 MEQ/L Carbon Dioxide Level 29.3 MEQ/L Anion Gap 13 MEQ/L Blood Urea Nitrogen 92 MG/DL Creatinine 4.48 MG/DL Estimat Glomerular Filtration 13 ML/MIN Rate Random Glucose 144 MG/DL Calcium Level 8.8 MG/DL Lipase 119 U/L Blood Type AB POSITIVE Antibody Screen NEGATIVE Crossmatch Leukocyte-Reduced Red Blood Cells Blood Bank Comment Test 03/08/17 03/08/17 03/08/17 01:25 05:18 06:00 Blood Type AB POSITIVE White Blood Count 9.4 TH/MM3 Red Blood Count 2.62 MIL/MM3 Hemoglobin 7.9 GM/DL Hematocrit 23.2 % Mean Corpuscular Volume 88.3 FL Mean Corpuscular Hemoglobin 30.3 PG Mean Corpuscular Hemoglobin 34.3 % Concent Red Cell Distribution Width 14.3 % Platelet Count 127 TH/MM3 Mean Platelet Volume 9.5 FL Neutrophils (%) (Auto) 93.7 % Lymphocytes (%) (Auto) 2.1 % Monocytes (%) (Auto) 4.1 % Eosinophils (%) (Auto) 0.0 % Basophils (%) (Auto) 0.1 % Neutrophils # (Auto) 8.8 TH/MM3 Lymphocytes # (Auto) 0.2 TH/MM3 Monocytes # (Auto) 0.4 TH/MM3 Eosinophils # (Auto) 0.0 TH/MM3 Basophils # (Auto) 0.0 TH/MM3 CBC Comment DIFF FINAL Differential Comment Sodium Level 139 MEQ/L Potassium Level 4.8 MEQ/L Chloride Level 98 MEQ/L Carbon Dioxide Level 26.4 MEQ/L Anion Gap 15 MEQ/L Blood Urea Nitrogen 105 MG/DL Creatinine 4.98 MG/DL Estimat Glomerular Filtration 11 ML/MIN Rate Random Glucose 165 MG/DL Calcium Level 9.1 MG/DL Phosphorus Level 8.1 MG/DL Total Creatine Kinase 149 U/L Albumin 3.6 GM/DL Blood Gas Puncture Site LT RADIAL Blood Gas Patient Temperature 98.6 Blood Gas HCO3 22 mmol/L Blood Gas Base Excess -2.1 mmol/L Blood Gas Oxygen Saturation 92 % Arterial Blood pH 7.41 Arterial Blood Partial 36 mmHg Pressure CO2 Arterial Blood Partial 75 mmHg Pressure O2 Arterial Blood Oxygen Content 11.4 Vol % Arterial Blood 1.6 % Carboxyhemoglobin Arterial Blood Methemoglobin 0.9 % Blood Gas Hemoglobin 8.8 G/DL Blood Gas Ventilator Setting Blood Gas Inspired Oxygen 50 % Imaging Last 48 hours Impressions Chest X-Ray 03/07/17 0000 Signed Impressions: Service Date/Time: Tuesday, March 07, 2017 17:32 - CONCLUSION: 1. Increasing bilateral airspace infiltrates the mid and upper lungs. Stable left lower lobar consolidation. 2. ET tube in good position. 3. The side-port of the gastric tube is approximately 3.5 cm above the hemidiaphragm. The tube should be advanced least 6 cm. Adams Powell MD Abdomen X-Ray 03/07/17 0000 Signed Impressions: Service Date/Time: Tuesday, March 07, 2017 13:26 - CONCLUSION: No acute disease. Bg Faust MD Assessment and Plan Problem List: (1) NSTEMI (non-ST elevated myocardial infarction) (2) Acute CHF Assessment and Plan: fairly stable (3) Shock (4) Atrial fibrillation Assessment and Plan: remains SR. Off heparin due to bleeding/ transfusion Assessment and Plan Dr. Butts back tomorrow Fady Chakraborty MD Mar 08, 2017 10:08
--- NOTE | 2017-03-08 10:08 | HHI.CCPN ---
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 Upon arrival to F pod discovered that patient was awake and normotensive, with sinus tachycardia in the 150s in severe respiratory distress. He had not lost a pulse but [facility] had been called to facilitate rapid evaluation and stabilization. 76-year-old male with past history of obesity, COPD, obstructive sleep apnea on CPAP, CHF, peripheral neuropathy, hypertension, diabetes, hyperlipidemia, obesity who receives medical care at the [facility]. He presented to [facility] emergency department 02/25/17 with falls and difficulty with balance. He also reported that he was having shortness of breath and cough for several days. Was not febrile in hospital. On the day of admission he had some chest pain across his chest. Troponins negative. He was treated for pneumonia with Rocephin and azithromycin. He was placed on steroids Solu-Medrol 60 mg IV every 6 hours. Received Lasix at about 6 PM on due to concern for volume overload. Echo had poor images but systolic function appeared reduced. Tonight he developed acutely worsening shortness of breath and Dr. Galicia presented to the emergency Department to evaluate him where he was found to be tachypneic and wheezing. He was given a neb and preparations were being made to place him on BiPAP. He was becoming less responsive and was looking upward when I arrived and respiratory was placing on Bipap. He was in extremis and it was felt he would need emergent intubation prior to transfer to ICU. He denied chest pain. He was preoxygenated on Bipap, did seem to become more alert and nodded that he agreed with proceeding with intubation. He was intubated in F pod and then transferred to [facility] [place] [place]. Upon arrival to [facility] [place] [place] he was in atrial fibrillation in the 130s. SBP was 90/50 then 64/40. Central line was placed and he converted to sinus tachycadia in 101-130s. Subsequently he was normotensive with MAP 71. He was also sedated with propofol during the hypotension, improved after transition to fentanyl drip. 02/27: PA catheter placed yesterday. PA catheter readings are more consistent distributive/septic shock with high cardiac output with low SVR. CO 10-11. CI 2.8 SVRI [id number]. D/W Dr Butts. Will hold off Flolan challenge at this time for high PA pressure- mean 59-60. After weaning pressors, PA mean pressure is about 40. Patient's hemodynamics have improved, vasopressin is off now, Levophed is at 4 mics per minute. Give Bumex 2 mg 1 on Bumex drip at 2 mg per hour per Dr. Miner 02/28: Afebrile. Arousable on the vent and moves 4 extremities spontaneously but doesn't follow commands. No bowel movement since admission. Currently nothing by mouth. Remains on low-dose vasopressors including vasopressin and Levophed 03/01: [place] Luisa catheter removed yesterday. Adequate urine output on Bumex drip at 1 mg an hour. Afebrile. Currently replaced potassium. 03/02: Afebrile. Bumex drip has been discontinued. Currently replaced potassium. Positive BM overnight. We'll attempt spontaneous breathing trials today. 03/03: Afebrile. Adequate urine output. Positive BM. Tolerating tube feeds. Heparin drip for thoracentesis. Eyes are open but not following commands. Continues on Versed and fentanyl drips. 03/04: Afebrile. Status post thoracentesis yesterday -1150 years transudative. Positive BM 1. Tolerating tube feeding. Hypertensive. Hydralazine added per cardiology. 03/05: Patient remains intubated sedated. Bedside ultrasound shows Moderate left pleural effusion. Agitated on lightening sedation 03/06: Remains intubated sedated. Overnight FiO2 had to increaseto 100 % due to desaturation, now reduced to 60% again. Chest x-ray shows bilateral pulmonary edema. Nephrology contacted- hemodialysis today with attempt at 4L removal. Status post bedside thoracentesis (Left side) yesterday with 1L transudative fluid removal 03/07: Tmax 99.2. Currently 99. Positive bloody secretions from ET tube. Heparin drip has been off since yesterday. Desaturated overnight FiO2 currently down to 40%. PEEP set at.8. Resting in bed in no acute distress. Eyes open and moves all 4 extremity spontaneously but not following commands. Subjective 03/08: Afebrile currently. Status post bronchoscopy yesterday with copious amounts of hemorrhagic secretions without obvious source. Transfuse 3 units. Receives overnight. Again no obvious source of bleeding. Tolerating tube feeding. Positive BM. Objective Vital Signs Date Time Temp Pulse Resp B/P Pulse Ox O2 Delivery O2 Flow Rate FiO2 03/08/17 08:55 94 50 03/08/17 06:00 102 03/08/17 05:31 98.5 15 148/72 Intake and Output 03/07/17 03/07/17 03/08/17 08:00 16:00 00:00 Intake Total 279 ml 705 ml 286 ml Output Total 126 ml 4225 ml 25 ml Balance 153 ml -3520 ml 261 ml Result Diagram: 03/08/17 0518 03/08/17 0518 Other Results Microbiology Date/Time Procedure Status Source Growth 03/07/17 17:20 Gram Stain - Final Resulted Bronchial Washings Bronchial 03/07/17 17:20 Bronchial Culture Resulted Bronchial Washings Bronchial Pending 03/07/17 17:20 Fungal Smear - Final Resulted Bronchial Washings Bronchial NO FUNGAL ELEMENTS SEEN. 03/07/17 17:20 Fungal Culture Resulted Bronchial Washings Bronchial Pending 03/07/17 17:20 Acid Fast Stain Received Bronchial Washings Bronchial Pending 03/07/17 17:20 Mycobacterial Culture Received Bronchial Washings Bronchial Pending 03/05/17 10:30 Acid Fast Stain - Final Resulted Fluid Pleural Fluid NO ACID FAST BACILLI SEEN 03/05/17 10:30 Mycobacterial Culture Resulted Fluid Pleural Fluid Pending Imaging Last Impressions Chest X-Ray 03/07/17 0000 Signed Impressions: Service Date/Time: Tuesday, March 07, 2017 17:32 - CONCLUSION: 1. Increasing bilateral airspace infiltrates the mid and upper lungs. Stable left lower lobar consolidation. 2. ET tube in good position. 3. The side-port of the gastric tube is approximately 3.5 cm above the hemidiaphragm. The tube should be advanced least 6 cm. Adams Powell MD Abdomen X-Ray 03/07/17 0000 Signed Impressions: Service Date/Time: Tuesday, March 07, 2017 13:26 - CONCLUSION: No acute disease. Bg Faust MD Thoracentesis 03/03/17 0000 Signed Impressions: Service Date/Time: Friday, March 03, 2017 14:09 - CONCLUSION: Uncomplicated CT-guided right thoracentesis. Cash Cowan MD Chest CT 03/02/17 0000 Signed Impressions: Service Date/Time: Thursday, March 02, 2017 11:42 - CONCLUSION: Large bilateral pleural effusions and bibasilar consolidation and/or compressive collapse not present on the study from 2015. KHua Nguyen MD Lower Extremity Ultrasound 02/27/17 0000 Signed Impressions: Service Date/Time: Monday, February 27, 2017 09:13 - CONCLUSION: Normal examination. Evaristo Massey MD Head CT 02/24/17 0000 Signed Impressions: Service Date/Time: Friday, February 24, 2017 18:59 - CONCLUSION: 1. No acute hemorrhage or mass effect. 2. Acute sinusitis in the left maxillary sinus. Raul Craig MD Cervical Spine MRI 02/24/17 0000 Signed Impressions: Service Date/Time: Friday, February 24, 2017 22:46 - CONCLUSION: 1. Small central protrusion at C4-5 without canal stenosis. 2. Small central protrusion at C3-4 with minimal extruded component. 3. Mild broad-based disc bulges at C5- 6 and C6-7 levels without canal stenosis. Neto Duenas MD Cervical Spine CT 02/24/17 0000 Signed Impressions: Service Date/Time: Friday, February 24, 2017 19:02 - CONCLUSION: 1. Moderate narrowing of left neural foramina at the C3-4 level secondary to hypertrophic change involving the facet joint. 2. Mild degenerative change at the C5-6 and C6-7 levels. 3. Mild disc osteophyte complex at C5-6 with mild narrowing of the neural foramina. Raul Craig MD Brain MRI 02/24/17 0000 Signed Impressions: Service Date/Time: Friday, February 24, 2017 22:46 - CONCLUSION: 1. No acute intracranial abnormality. 2. Left maxillary sinus disease. 3. No acute infarction. Neto Duenas MD Objective Remarks GENERAL: 56-year-old male, critically ill currently orotracheally intubated with bloody secretions SKIN: Warm and dry. No rash HEAD: Atraumatic. Normocephalic. EYES: Pupils equal and round 3-4 mm and reactive bilaterally. No scleral icterus. No injection or drainage. ENT: Orotracheally intubated NECK: Trachea midline. Right Subclavian, LIJ hemodialysis catheter clean dry and intact CARDIOVASCULAR: RRR. S1, S2. No S4. Faint 1/6 systolic murmur right upper sternal border RESPIRATORY: Few crackles appreciated bilaterally. Left greater than right Symmetrical excursion. GASTROINTESTINAL: Abdomen obese, protuberant, small umbilical reducible hernia. Bowel sounds are hypoactive. MUSCULOSKELETAL: Extremities with much improved lower extremity edema . Chronic venous stasis/lymphedema NEUROLOGICAL: Eyes are open. Positive corneal reflex. Positive gag. Moves all 4 extremity spontaneously but not following commands. Withdraws to pain upper and lower extremities bilaterally. A/P Assessment and Plan NEURO/PSYCH: Acute encephalopathy - secondary to hypercapnia and hypoxemia Peripheral neuropathy Allergic rhinitis Currently on propofol at 10 mcg/kg/m and Fentanyl at 50 mg per hour for sedation /analgesia while intubated. Goal of RASS -2. Daily sedation vacation MRI brain 02/24 - no acute abnormality MRI C-spinesmall central protrusion at C3/C4 with mild extruded central spinal cord C4-C5 without canal stenosis with mild disc bulging C5/6 and C6/7 EEG 02/27 revealed moderate to severe encephalopathy. No epileptiform activity Questionable history of EtOH use/abuse. We'll continue on thiamine/folate and multivitamin today Neurontin level2.3. Previously on 600 mg 3 times a day for shingles pain management. Currently on hold Holding Flonase twice a day/Zyrtec 5 mill grams daily. Resume as clinically indicated RESP: Acute hypoxemic and hypercapnic respiratory failure Acute COPD exacerbation Bilateral large pl effusions History of asthma? Acute on chronic pulmonary artery hypertension Objective sleep apnea - noncompliant with CPAP History of tobacco abuse PRVC 15/550/1.2/40. Ventilator bundle DuoNeb every 4 hours with albuterol every 2 hours when necessary Continue Pulmicort 0.5/2 one inhalation twice a day Solumedrol 20 milligrams every q12 to be weaned over the next several days s/p thoracentesis left-sided 03/05 with 1L removed -transudate Right thoracentesis 03/03 likely transudative. -1150 Home medication regimen is Symbicort 160/4.5 to press twice a day, Spiriva 18 inhalation daily and Ventolin 4 times a day with duo nebs aerosols for breakthrough every 4 hours when necessary According to records, noncompliant with CPAP for SEBASTIAN Airway edema noted particularly large arytenoid edema noted on intubation 02/26 with anterior airway. Intubated with Glidescope and 7.5 ETT. Cardiovascular: Pulmonary edema Shock, distributive/septic resolved Acute on chronic systolic heart failure EF 25-30% Moderate Moderate to severe TR NSTEMI Paroxysmal atrial fibrillation/flutter History of Hypertension Hyperlipidemia History of coronary artery disease Currently off all vaso pressors. Additional fl removal today with HD (target 3L) PAC placed 02/26-initially distributive shock (CI 2.8, SVRI 1300). Cardiac index at 2.1. 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 Butts IV heparin for NSTEMI and A Fib rate Bumex 2 mg IV 1 02/27 and initiated Bumex infusion currently discontinued as of 03/03 Continue aspirin 81 mg daily Switched amiodarone drip secondary to 7 beat of V. tach at 0953 03/07 Troponin peaked at 27. Left heart catheterization when clinically stable Continue atorvastatin 80 mg daily at bedtime for dyslipidemia Unable to use beta charles secondary due to hypotension. On Lopressor 200 mg daily at home. Other blood pressures include lisinopril 40 mg daily and HCTZ 12.5 mg daily. On hold due to acute kidney injury Started hydralazine 20 milligrams IV every [address] Butts Echo 02/27: - Systolic function was severely reduced 25% to 30%. Diffuse hypokinesis. -Aortic valve: moderate stenosis. Tricuspid valve: Moderate/severe regurgitation. SUZAN 70 mmHg Echo 03/06 -- Left ventricle: The cavity size was mildly dilated. Wall thickness was increased in a pattern of mild LVH. There was concentric hypertrophy. Systolic function was severely reduced. The estimated ejection fraction was in the range of 20% to 25%. Diffuse hypokinesis. - Aortic valve: Valve mobility was mildly restricted. There was mild to moderate stenosis. Valve area: 1.37cm^2 (VTI). Valve area: 1.13cm^2 (Vmax). - Mitral valve: Mild regurgitation. - Left atrium: The atrium was mildly dilated. - Right ventricle: The cavity size was mildly dilated. - Atrial septum: No defect or patent foramen ovale was identified. - Tricuspid valve: Mild regurgitation. - Pulmonary arteries: PA peak pressure: 69mm Hg (S). Impressions: No colorflow noted across the ventricular septum concerning for a VSD. No papillary muscle ruptures noted. GI: Constipation Glucerna 1.5 goal 55 cc an hour Protonix 40 mg IV daily Colace and Senokot twice a day for bowel regimen Having BM Start Reglan 5 every 8 for high residual Check KUB/lipase. LFTs normal yesterday : BPH Holding doxazosin 8 mg daily light of hypotension Maintain Barrios for accurate I's and O's in a critically ill patient FEN/RENAL: Acute kidney injury/ATN Monitor intake and output. Monitor electrolytes Bumex discontinued HD started 03/05, 2L fluid removed. Hemodialysis is planned for today again with 3 L targeted removal ID: Acute community acquired pneumonia Septic shock-resolved Continue Zosyn./Levaquin started 03/06 discontinued his Zithromax after 8 days. Microbiology: lood culture 2 setsno growth to date 02/25sputum - no growth 02/25urine Legionella and pneumococcal antigen negative 02/25influenza screen negative 02/26 - urine - no growth 02/26 - blood cultures 2 - no growth 03/06: sputum culture with gram-negative rods 03/07 - bronchoscopy - pending Likely de-escalate antibiotics next 24-48 hours HEME: Normocytic anemia No indication for transfusion of blood products at this time Continue IV heparin drip for A. fib/nonsustained ENDO: Poorly controlled diabetes mellitus - hemoglobin A1c of 8.6 Levemir 40 units twice a day with sliding scale insulin 4/moderate regimen. 8 units sliding scale insulin past 24 hours At home on Lantus 35 units twice a day and Novulin R 15 units 3 times a day with meals MSK Chronic lymphedema Osteoporosis/osteoarthritis Lac-Hydrin twice a day for lower extremity lymphedema 02/27 venous Dopplers showed no DVT Hold Risedronate 35 mg mg weekly for osteoporosis PROPH: Protonix 40 mg IV daily for stress ulcer prophylaxis. Heparin drip has been held secondary to bloody secretions ACCESS: Right subclavian central venous line placed 02/26 #10 Right IJ Cordis/day #4 discontinued 03/02 LIJ Vascath placed 03/05/17 day #3 Full code Critical Care: The total critical care time was 35 minutes. Time to perform other separately billable procedures was not included in the critical care time. I discussed with at bedside. Care plan discussed all questions answered -> .Noni Stokes. Planned bronchoscopy today for hemoptysis. Ramo Almaraz MD Mar 08, 2017 10:08
[2017-03-08] MEDS: AMIODARONE INJ 450 MG in D5W (EXCEL BAG) 241 ML IV SCH (10:39)
--- NOTE | 2017-03-08 12:09 | PD.PROCEDR ---
Central Line Procedure REASON FOR PROCEDURE Central venous access PROCEDURE PERFORMED Central line placement: right IJ CVL CONSENT Informed consent for procedure was obtained Noni Stokes, . The risks and benefits of the procedure were discussed to include but limited to bleeding, clot formation, infection, and even . ANESTHESIA Local injection of 1% Lidocaine DESCRIPTION OF THE PROCEDURE The patient was placed in supine, mild Trendelenburg position. The area was exposed and cleansed with ChloraPrep, times two. Large sterile drape was used to cover the patient, with the site exposed, under sterile conditions including cap, face mask, sterile gown, and sterile gloves. On single attempt, the introducer needle was inserted with negative pressure in syringe and venous flash was obtained. The guide wire was then advanced without any restriction and the needle was removed. The dilator was used without any complications. Using Seldinger technique the triple lumen catheter was advanced over the guide wire to a depth of 17 centimeters. The guide wire was removed. All ports were aspirated with dark venous blood return and flushed easily with sterile saline. All ports were capped. Antibiotic disc was placed around central line at puncture site. The central line was secured to the skin with 4 interrupted 2.0 silk sutures. The area was bandaged with sterile see-through central line bandage. RADIOLOGICAL DATA Ultrasound guidance was used to locate Right IJ CVL. Doppler/color flow was used to confirm venous flow. COMPLICATIONS: No apparent complications ESTIMATED BLOOD LOSS: Less than 1 cc. Ramo Almaraz MD Mar 08, 2017 12:09
--- NOTE | 2017-03-08 13:14 | RADRPT ---
EXAM DATE/TIME: 03/08/2017 12:22 [place] COMPARISON: CHEST SINGLE AP, March 07, 2017, 17:32. INDICATIONS : Evaluate for central line placement. MEDICAL HISTORY : Chronic obstructive pulmonary disease. Cardiovascular disease. Myocardial SURGICAL HISTORY : None. ENCOUNTER: Initial ACUITY: 1 day PAIN SCORE: Non-responsive. LOCATION: Bilateral chest FINDINGS: The ET tube, NG tube, right internal jugular central line, right subclavian line, and left internal j ugular central line are all well-placed. The heart size is mildly enlarged. There is diffuse areas of consolidation seen throughout both lungs. There is silhouetting of the right hemidiaphragm. CONCLUSION: 1. Tubes and lines in good position. 2. Diffuse pulmonary consolidation likely representing some diffuse processes such as diffuse edema, infection or ARDS. 3. Increased density at the right base with silhouetting of the right hemidiaphragm. Some degree of right effusion needs to be considered. Bg Faust MD on March 08, 2017 at 13:08 Board Certified Radiologist. This report was verified electronically.
--- NOTE | 2017-03-08 13:33 | EKG ---
Date Performed: 03/07/2017 Time Performed: 10:18:18 PTAGE: 76 years EKG: Possible atrial flutter Inferior infarct - age undetermined Possible lateral infarct - age undetermined Anteroseptal ST-T changes may be due to myocardial ischemia Compared to prior tracing no significant change Abnormal ECG PREVIOUS TRACING : 02/27/2017 11.09 DOCTOR: Ky Al Interpretating Date/Time 03/08/2017 13:31:12
--- NOTE | 2017-03-08 14:13 | HHI.NPPN ---
Subjective Complaints: Obesity General Problems: Edema Renal Failure: Acute Additional Remarks This is late entry, seen 03/07, during HD. Patient remain intubated and sedated. Review of Systems General General Remarks unable to evaluate Objective Data Data 03/07/17 03/08/17 19:00 07:00 Intake Total 705 ml 699 ml Output Total 4225 ml 45 ml Balance -3520 ml 654 ml Intake Oral 0 ml IV Total 448 ml 491 ml Tube Feeding 257 ml 208 ml Output Urine Total 225 ml 45 ml Hemodialysis 4000 ml # Bowel Movements 1 2 Vital Signs Date Time Temp Pulse Resp B/P Pulse Ox O2 Delivery O2 Flow Rate FiO2 03/08/17 12:00 100 03/08/17 12:00 78 03/08/17 11:34 93 60 03/08/17 10:00 78 03/08/17 08:55 94 50 03/08/17 08:35 98.1 79 16 119/58 99 03/08/17 08:00 50 03/08/17 08:00 82 03/08/17 06:00 102 03/08/17 05:31 98.5 100 15 148/72 96 03/08/17 04:01 95 50 03/08/17 04:00 98.2 75 15 102/55 75 03/08/17 04:00 50 03/08/17 04:00 75 03/08/17 03:05 98.2 87 15 132/70 97 03/08/17 02:49 98.2 87 15 145/69 100 03/08/17 02:00 73 03/08/17 01:06 100 50 03/08/17 00:00 71 03/08/17 00:00 98.4 71 15 94/50 100 03/08/17 00:00 50 03/07/17 22:00 82 03/07/17 20:33 100 50 03/07/17 20:00 98.5 69 15 87/53 100 03/07/17 20:00 69 03/07/17 20:00 50 03/07/17 18:42 99 60 03/07/17 18:00 85 03/07/17 17:35 91 100 03/07/17 16:00 75 03/07/17 16:00 99.5 75 15 92/55 99 03/07/17 16:00 100 03/07/17 14:18 97 100 -: 03/08/17 0518 03/08/17 0518 Microbiology 03/07/17 Gram Stain - Final, Resulted 03/07/17 Bronchial Culture - Preliminary, Resulted NO GROWTH IN 24 HOURS. 03/07/17 Acid Fast Stain, Received Pending 03/07/17 Mycobacterial Culture, Received Pending 03/07/17 Fungal Smear - Final, Resulted NO FUNGAL ELEMENTS SEEN. 03/07/17 Fungal Culture, Resulted Pending Tubes & Lines: Vas-Cath, Barrios Tubes & Lines Comment TLC right SC VC left IJ Drip Comment versed, fentanyl Physical Exam General Appearance Remarks Intubated and sedated. Throat Throat Exam: Oral Mucosa Nordic & Moist Pulmonary Resp Exam: No Distress, Rhonchi, Decreased Bases, Diminished Breath Sounds Cardiology CV Exam: Good Perfusion, Irregular, Tachycardia Gastrointestinal/Abdomen GI Exam: Soft, Non-Tender, Bowel Sounds Present, Distended Genitourinary Exam: Clear Urine Musculoskeletal MS Exam: Joints Intact, Normal Tone, Unable to Ambulate Integumentary Skin Exam: Clear, Warm, Dry, Intact Extremeties Extremities Exam: Moderate Edema, Pitting Edema Neurologic Neuro Exam: Sedated Assessment/Plan Assessment Summary: Hypotension, Diabetes Mellitus Problem List: (1) Acute renal failure superimposed on chronic kidney disease Plan: RAGHAVENDRA likely due to hypotension, renal hypoperfusion, may have progressed to ATN. Vascath placed 03/05, HD initiated yesterday (2L UF), had dialysis again today with 5L UF urine output has dropped, continue to monitor he will have HD again tomorrow, then convert T/Th/Sat HD Avoid nephrotoxic agents. HD and remove fluid as tolerated. Urine out put is minimal. (2) NSTEMI (non-ST elevated myocardial infarction) Plan: Cardiology following. Catheterization is planned once he is more stable, but renal function has declined necessitating renal replacement therapy (3) CHF exacerbation Plan: worsened by acute MN. monitor fluid volume status UF with dialysis as needed/tolerated (4) Pneumonia Plan: Currently on zosyn continues IV solumedrol CPAP trial today, on 55% Fi02 all cultures are negative s/p thoracentesis 03/03, 1500 ml drained (5) Type 2 diabetes mellitus Plan: continue insulin therapy blood sugar has improved recommend 140-180 mg/dL Problem Qualifiers (1) CHF exacerbation: Qualified Code: I50.9 - Acute on chronic congestive heart failure, unspecified congestive heart failure type (2) Pneumonia: Qualified Code: J18.1 - Pneumonia of right lower lobe due to infectious organism Vandana Martinez MD Mar 08, 2017 14:13
--- NOTE | 2017-03-08 14:15 | HHI.NPPN ---
Subjective Complaints: Obesity General Problems: Edema Renal Failure: Acute Additional Remarks Patient remain intubated and sedated, clinically same. Review of Systems General General Remarks unable to evaluate Objective Data Data 03/07/17 03/08/17 19:00 07:00 Intake Total 705 ml 699 ml Output Total 4225 ml 45 ml Balance -3520 ml 654 ml Intake Oral 0 ml IV Total 448 ml 491 ml Tube Feeding 257 ml 208 ml Output Urine Total 225 ml 45 ml Hemodialysis 4000 ml # Bowel Movements 1 2 Vital Signs Date Time Temp Pulse Resp B/P Pulse Ox O2 Delivery O2 Flow Rate FiO2 03/08/17 12:00 100 03/08/17 12:00 78 03/08/17 11:34 93 60 03/08/17 10:00 78 03/08/17 08:55 94 50 03/08/17 08:35 98.1 79 16 119/58 99 03/08/17 08:00 50 03/08/17 08:00 82 03/08/17 06:00 102 03/08/17 05:31 98.5 100 15 148/72 96 03/08/17 04:01 95 50 03/08/17 04:00 98.2 75 15 102/55 75 03/08/17 04:00 50 03/08/17 04:00 75 03/08/17 03:05 98.2 87 15 132/70 97 03/08/17 02:49 98.2 87 15 145/69 100 03/08/17 02:00 73 03/08/17 01:06 100 50 03/08/17 00:00 71 03/08/17 00:00 98.4 71 15 94/50 100 03/08/17 00:00 50 03/07/17 22:00 82 03/07/17 20:33 100 50 03/07/17 20:00 98.5 69 15 87/53 100 03/07/17 20:00 69 03/07/17 20:00 50 03/07/17 18:42 99 60 03/07/17 18:00 85 03/07/17 17:35 91 100 03/07/17 16:00 75 03/07/17 16:00 99.5 75 15 92/55 99 03/07/17 16:00 100 03/07/17 14:18 97 100 -: 03/08/17 0518 03/08/17 0518 Microbiology 03/07/17 Gram Stain - Final, Resulted 03/07/17 Bronchial Culture - Preliminary, Resulted NO GROWTH IN 24 HOURS. 03/07/17 Acid Fast Stain, Received Pending 03/07/17 Mycobacterial Culture, Received Pending 03/07/17 Fungal Smear - Final, Resulted NO FUNGAL ELEMENTS SEEN. 03/07/17 Fungal Culture, Resulted Pending Tubes & Lines: Vas-Cath, Barrios Tubes & Lines Comment TLC right SC VC left IJ Drip Comment versed, fentanyl Physical Exam General Appearance Remarks Intubated and sedated. Throat Throat Exam: Oral Mucosa [place] & Moist Pulmonary Resp Exam: No Distress, Rhonchi, Decreased Bases, Diminished Breath Sounds Cardiology CV Exam: Good Perfusion, Irregular, Tachycardia Gastrointestinal/Abdomen GI Exam: Soft, Non-Tender, Bowel Sounds Present, Distended Genitourinary Exam: Clear Urine Musculoskeletal MS Exam: Joints Intact, Normal Tone, Unable to Ambulate Integumentary Skin Exam: Clear, Warm, Dry, Intact Extremeties Extremities Exam: Moderate Edema, Pitting Edema Neurologic Neuro Exam: Sedated Assessment/Plan Assessment Summary: Hypotension, Diabetes Mellitus Problem List: (1) Acute renal failure superimposed on chronic kidney disease Plan: RAGHAVENDRA likely due to hypotension, renal hypoperfusion, may have progressed to ATN. Vascath placed 03/05, HD initiated yesterday (2L UF), had dialysis again today with 5L UF urine output has dropped, continue to monitor he will have HD again tomorrow, then convert T/Th/Sat HD Avoid nephrotoxic agents. HD done yesterday and 4 liters removed. Transfused yesterday. Urine out put is low. D/W the at bed side. Dr. Miner will follow in AM. (2) NSTEMI (non-ST elevated myocardial infarction) Plan: Cardiology following. Catheterization is planned once he is more stable, but renal function has declined necessitating renal replacement therapy (3) CHF exacerbation Plan: worsened by acute [place]. monitor fluid volume status UF with dialysis as needed/tolerated (4) Pneumonia Plan: Currently on zosyn continues IV solumedrol CPAP trial today, on 55% Fi02 all cultures are negative s/p thoracentesis 03/03, 1500 ml drained (5) Type 2 diabetes mellitus Plan: continue insulin therapy blood sugar has improved recommend 140-180 mg/dL Problem Qualifiers (1) CHF exacerbation: Qualified Code: I50.9 - Acute on chronic congestive heart failure, unspecified congestive heart failure type (2) Pneumonia: Qualified Code: J18.1 - Pneumonia of right lower lobe due to infectious organism Vandana Martinez MD Mar 08, 2017 14:15
[2017-03-08 15:11] LABS: HEMATOCRIT 26.1 % (39.0-51.0); REVIEW FLAG FINAL
[2017-03-08] MEDS ORDERED: DESMOPRESSIN ACETATE 4 MCG/ML VIAL IV PUSH ONE (16:00)
[2017-03-08] MEDS: LEVOFLOXACIN 500 MG PREMIX INJ 100 ML IV SCH (16:13)
[2017-03-08] MEDS ORDERED: DESMOPRESSIN INJ 20 MCG in SODIUM CHLORIDE 0.9% INJ 50 ML IV ONE (16:45)
[2017-03-08] MEDS: RESP: SODIUM CHLORIDE 3% 4 ML NEB NEB SCH ×3 (17:08→23:54)
[2017-03-08] MEDS: ASPIRIN EC 81 MG TABEC PO SCH (21:00)
[2017-03-08] MEDS: ATORVASTATIN 80 MG TAB PO SCH (21:00)
[2017-03-08] MEDS: AMIODARONE 200 MG TAB PO SCH (21:00)
[2017-03-09] VITALS (17 sets, daily range): BP systolic 90–144; BP diastolic 53–95; PULSE 72–109; RESP 15–22; TEMP 97.5–99; O2SAT 92–100
[2017-03-09] MEDS: PIPERACIL-TAZO 2.25 GM PREMIX 50 ML IV SCH ×4 (01:00→22:36)
[2017-03-09] MEDS: hydrALAZINE HCL 20 MG/ML VIAL IV PUSH SCH ×6 (01:01→20:31)
[2017-03-09] MEDS: INSULIN NovoLIN REGULAR SUPPLEMENTAL SCALE SQ SCH ×4 (04:00→20:00)
[2017-03-09] MEDS: CHLORHEXIDINE GLUCONATE 2 % 1 PACK (2 CLOTHS) TOP SCH (04:00)
[2017-03-09] MEDS: MIDAZOLAM 100 MG/NS 100 ML DRIP Premix IV SCH (04:20)
[2017-03-09] MEDS: fentaNYL 2,500 MCG/NS 250 ML IV SCH (04:20)
[2017-03-09] MEDS: RESP: ALBUTEROL 2.5 MG/IPRATROPIUM 0.5 MG NEB (SCH) INH ×6 (04:34→23:34)
[2017-03-09] MEDS: RESP: SODIUM CHLORIDE 3% 4 ML NEB NEB SCH ×6 (04:34→23:34)
[2017-03-09] MEDS: ARTIFICIAL TEARS OPTH SOLN 15 ML BTL EACH EYE SCH ×3 (05:18→22:00)
[2017-03-09] MEDS: METOCLOPRAMIDE HCL 10 MG/2 ML VIAL IV PUSH SCH ×3 (05:18→20:30)
[2017-03-09 05:39] LABS: AUTOMATED NEUTROPHIL # 14.3 TH/MM3 (1.8-7.7); BASOPHIL % 0.3 % (0.0-2.0); HEMATOCRIT 30.3 % (39.0-51.0); HEMO FLAGS DIFF FINAL; LYMPH % 1.3 % (9.0-44.0); LYMPHOCYTE # 0.2 TH/MM3 (1.0-4.8); MEAN CELL VOLUME 88.3 FL (80.0-100.0); MEAN CORPUSCULAR HEMOGLOBIN 28.9 PG (27.0-34.0); MEAN CORPUSCULAR HGB CONC 32.8 % (32.0-36.0); MONO % 2.8 % (0.0-8.0); NEUT % 95.6 % (16.0-70.0); PLATELET COUNT 142 TH/MM3 (150-450); RED BLOOD COUNT 3.43 MIL/MM3 (4.50-5.90); RED CELL DISTRIBUTION WIDTH 15.1 % (11.6-17.2)
[2017-03-09 06:15] LABS: BICARBONATE 26.6 MEQ/L (21.0-32.0); MAGNESIUM 3.2 MG/DL (1.5-2.5); POTASSIUM 5.3 MEQ/L (3.5-5.1)
[2017-03-09] MEDS: RESP: BUDESONIDE 0.5 MG/2 ML NEB NEB SCH ×2 (07:53→19:21)
--- NOTE | 2017-03-09 08:27 | PD.CARD.PN ---
Subjective Subjective Remarks intubated, mechanically ventilated Objective Vital Signs / I&O Vital Signs Date Time Temp Pulse Resp B/P Pulse Ox O2 Delivery O2 Flow Rate FiO2 03/09/17 07:54 100 55 03/09/17 06:00 76 03/09/17 04:15 99 60 03/09/17 04:00 77 03/09/17 04:00 60 03/09/17 04:00 98.5 104 15 104/95 95 03/09/17 02:00 72 03/09/17 01:15 97 60 03/09/17 00:00 98.2 95 17 144/68 98 03/09/17 00:00 60 03/09/17 00:00 95 03/08/17 22:00 82 03/08/17 21:03 100 60 03/08/17 20:00 67 03/08/17 20:00 60 03/08/17 20:00 98.2 67 15 93/52 100 03/08/17 18:00 66 03/08/17 17:03 98 60 03/08/17 16:00 98.1 85 17 129/67 96 03/08/17 16:00 68 03/08/17 16:00 60 03/08/17 14:21 96 65 03/08/17 14:00 70 03/08/17 12:00 100 03/08/17 12:00 97.9 72 16 98/55 95 03/08/17 12:00 78 03/08/17 11:34 93 60 03/08/17 10:00 78 03/08/17 08:55 94 50 03/08/17 08:35 98.1 79 16 119/58 99 I/O 03/08/17 03/08/17 03/08/17 03/09/17 03/09/17 03/09/17 07:00 15:00 23:00 07:00 15:00 23:00 Intake Total 413 ml 1534 ml 758 ml 459 ml Output Total 20 ml 75 ml 30 ml 150 ml Balance 393 ml 1459 ml 728 ml 309 ml Intake Oral 0 ml 0 ml 0 ml 0 ml IV Total 208 ml 563 ml 378 ml 141 ml Tube Feeding 205 ml 262 ml 380 ml 318 ml Packed Cells 709 ml Output Urine Total 20 ml 75 ml 30 ml 150 ml Gastric Drainage Total 0 ml # Bowel Movements 1 2 1 1 Physical Exam GENERAL: Well-nourished, well-developed patient in no apparent distress. NECK: No JVD. No carotid bruit. CARDIOVASCULAR: Regular rate and rhythm. S1/S2 no murmur, rub, or gallop. RESPIRATORY: No accessory muscle use. mild rhonchi to auscultation. Breath sounds equal bilaterally. GASTROINTESTINAL: Abdomen soft, non-tender, nondistended. MUSCULOSKELETAL: Extremities without clubbing, cyanosis, or edema. Laboratory Laboratory Tests Test 03/08/17 03/09/17 14:30 05:00 Hemoglobin 8.8 GM/DL 9.9 GM/DL Hematocrit 26.1 % 30.3 % White Blood Count 15.0 TH/MM3 Red Blood Count 3.43 MIL/MM3 Mean Corpuscular Volume 88.3 FL Mean Corpuscular Hemoglobin 28.9 PG Mean Corpuscular Hemoglobin 32.8 % Concent Red Cell Distribution Width 15.1 % Platelet Count 142 TH/MM3 Mean Platelet Volume 9.8 FL Neutrophils (%) (Auto) 95.6 % Lymphocytes (%) (Auto) 1.3 % Monocytes (%) (Auto) 2.8 % Eosinophils (%) (Auto) 0.0 % Basophils (%) (Auto) 0.3 % Neutrophils # (Auto) 14.3 TH/MM3 Lymphocytes # (Auto) 0.2 TH/MM3 Monocytes # (Auto) 0.4 TH/MM3 Eosinophils # (Auto) 0.0 TH/MM3 Basophils # (Auto) 0.0 TH/MM3 CBC Comment DIFF FINAL Differential Comment Sodium Level 137 MEQ/L Potassium Level 5.3 MEQ/L Chloride Level 95 MEQ/L Carbon Dioxide Level 26.6 MEQ/L Anion Gap 15 MEQ/L Blood Urea Nitrogen 149 MG/DL Creatinine 6.31 MG/DL Estimat Glomerular Filtration 9 ML/MIN Rate Random Glucose 243 MG/DL Calcium Level 9.0 MG/DL Phosphorus Level 9.3 MG/DL Magnesium Level 3.2 MG/DL Assessment and Plan Problem List: (1) NSTEMI (non-ST elevated myocardial infarction) (2) Acute CHF (3) Shock (4) Atrial fibrillation Assessment and Plan Acute respiratory distress appears to be multifactorial. PNA, COPD, CHF. FIO2 55% CHF, acute systolic Cardiomyopathy - EF 25%. Severe PHTN NSTEMI Sepsis At least moderate aortic stenosis. HTN - well controlled ARF - worsening still, for dialysis today NSVT - again intermittent wide QRS complex tachycardia 11 beats 03/08/17 0559. on amiodarone Robert Marte Mar 09, 2017 08:27
[2017-03-09] MEDS: DOCUSATE SODIUM 100 MG CAP PO SCH ×2 (09:00→21:00)
[2017-03-09] MEDS: THIAMINE INJ 100 MG in SODIUM CHLORIDE 0.9% INJ 100 ML IV SCH (09:00)
[2017-03-09] MEDS: SENNOSIDES SYRUP 8.8 MG/5 ML CUP PO SCH ×2 (09:00→20:28)
[2017-03-09] MEDS: BENEPROTEIN POWDER 1 PACK G-TUBE SCH ×3 (09:00→17:54)
[2017-03-09] MEDS: AMIODARONE 200 MG TAB PO SCH ×2 (09:00→20:29)
--- NOTE | 2017-03-09 10:34 | HHI.NPPN ---
Subjective Complaints: Obesity General Problems: Edema Renal Failure: Acute Interval History He remains intubated, sedated. Urine output has dropped. (Katina Park) Review of Systems General General Remarks unable to evaluate (Katina Park) Objective Data Data 03/08/17 03/09/17 19:00 07:00 Intake Total 1534 ml 1217 ml Output Total 75 ml 180 ml Balance 1459 ml 1037 ml Intake Oral 0 ml 0 ml IV Total 563 ml 519 ml Tube Feeding 262 ml 698 ml Packed Cells 709 ml Output Urine Total 75 ml 180 ml Gastric Drainage Total 0 ml # Bowel Movements 3 1 Vital Signs Date Time Temp Pulse Resp B/P Pulse Ox O2 Delivery O2 Flow Rate FiO2 03/09/17 07:54 100 55 03/09/17 06:00 76 03/09/17 04:15 99 60 03/09/17 04:00 77 03/09/17 04:00 60 03/09/17 04:00 98.5 104 15 104/95 95 03/09/17 02:00 72 03/09/17 01:15 97 60 03/09/17 00:00 98.2 95 17 144/68 98 03/09/17 00:00 60 03/09/17 00:00 95 03/08/17 22:00 82 03/08/17 21:03 100 60 03/08/17 20:00 67 03/08/17 20:00 60 03/08/17 20:00 98.2 67 15 93/52 100 03/08/17 18:00 66 03/08/17 17:03 98 60 03/08/17 16:00 98.1 85 17 129/67 96 03/08/17 16:00 68 03/08/17 16:00 60 03/08/17 14:21 96 65 03/08/17 14:00 70 03/08/17 12:00 100 03/08/17 12:00 97.9 72 16 98/55 95 03/08/17 12:00 78 03/08/17 11:34 93 60 (Katina Park) -: 03/09/17 0500 03/09/17 0500 Imaging Last 72 hours Impressions Chest X-Ray 03/08/17 1207 Signed Impressions: Service Date/Time: Wednesday, March 08, 2017 12:22 - CONCLUSION: 1. Tubes and lines in good position. 2. Diffuse pulmonary consolidation likely representing some diffuse processes such as diffuse edema, infection or ARDS. 3. Increased density at the right base with silhouetting of the right hemidiaphragm. Some degree of right effusion needs to be considered. Bg Faust MD Chest X-Ray 03/07/17 0000 Signed Impressions: Service Date/Time: Tuesday, March 07, 2017 17:32 - CONCLUSION: 1. Increasing bilateral airspace infiltrates the mid and upper lungs. Stable left lower lobar consolidation. 2. ET tube in good position. 3. The side-port of the gastric tube is approximately 3.5 cm above the hemidiaphragm. The tube should be advanced least 6 cm. Adams Powell MD Abdomen X-Ray 03/07/17 0000 Signed Impressions: Service Date/Time: Tuesday, March 07, 2017 13:26 - CONCLUSION: No acute disease. Bg Faust MD Tubes & Lines: Vas-Cath, Barrios Tubes & Lines Comment TLC right SC VC left IJ Drip Comment versed, fentanyl (Katina Park B. [employer]) Physical Exam General Appearance Remarks intubated, sedated, not following commands (Katina Park B. [employer]) Throat Throat Exam: Oral Mucosa [place] & Moist (Katina Park B. [employer]) Pulmonary Resp Exam: Breath Sounds Equal, No Distress, Rhonchi, Decreased Bases, Diminished Breath Sounds (Katina Park B. [employer]) Cardiology CV Exam: Normal Sinus Rhythm, Good Perfusion, Irregular, Tachycardia (Katina Park B. [employer]) Gastrointestinal/Abdomen GI Exam: Soft, Non-Tender, Bowel Sounds Present, Distended (Katina Park B. [employer]) Genitourinary Exam: Clear Urine (Katina Park B. [employer]) Musculoskeletal MS Exam: Joints Intact, Normal Tone, Unable to Ambulate (Katina Park B. [employer]) Integumentary Skin Exam: Clear, Warm, Dry, Intact (Katina Park B. [employer]) Extremeties Extremities Exam: Moderate Edema, Pitting Edema (Katina Park B. [employer]) Neurologic Neuro Exam: Unresponsive, Sedated (Katina Park) Assessment/Plan Assessment Summary: Hypotension, Diabetes Mellitus Problem List: (1) Acute renal failure superimposed on chronic kidney disease Plan: ATN from hypotension, renal hypoperfusion Vascath placed and HD initiated 03/05, last treatment Thursday urine output has dropped, continue to monitor HD today, then may convert to MWF HD Avoid nephrotoxic agents, IVF daily renal panel increase phoslo for hyperphosphatemia (2) NSTEMI (non-ST elevated myocardial infarction) Plan: Cardiology following. Catheterization is planned once he is more stable, but renal function has declined necessitating dialysis (3) CHF exacerbation Plan: worsened by acute [place]. monitor fluid volume status UF with dialysis as needed/tolerated (4) Pneumonia Plan: Currently on Zosyn and Levaquin continues IV solumedrol monitor clinically (5) Type 2 diabetes mellitus Plan: continue insulin therapy blood sugar stable, he is on steroids recommend 140-180 mg/dL (Katina Park) Plan patient was seen and examined. Needs dialysis today. Prognosis is poor. ( Pablo Miner MD) Problem Qualifiers (1) CHF exacerbation: Qualified Code: I50.9 - Acute on chronic congestive heart failure, unspecified congestive heart failure type (2) Pneumonia: Qualified Code: J18.1 - Pneumonia of right lower lobe due to infectious organism Katina Park Mar 09, 2017 10:33 Pablo Miner MD Mar 09, 2017 10:50
[2017-03-09] MEDS: PANTOPRAZOLE SODIUM 40 MG VIAL IV SCH (10:36)
[2017-03-09] MEDS: INSULIN DETEMIR 100 UNITS/ML VIAL SQ SCH ×2 (10:37→20:30)
[2017-03-09] MEDS: methylPREDNISolone SOD SUCC 40 MG/1 ML VIAL IV PUSH SCH (10:37)
[2017-03-09] MEDS: MULTIVITAMIN TAB PO SCH (10:37)
[2017-03-09] MEDS: FOLIC ACID 1 MG TAB PO SCH (10:37)
[2017-03-09] MEDS: CHLORHEXIDINE 0.12% (ORAL KIT) 15 ML CUP MT SCH ×2 (10:38→20:00)
[2017-03-09] MEDS: LACTIC ACID (AMMONIUM LACTATE) 12% LOTION 225 GM BTL TOPICAL SCH ×2 (10:38→21:00)
[2017-03-09] MEDS: SODIUM CHLORIDE 0.9% FLUSH 10 ML FLUSH IV FLUSH SCH ×2 (10:39→21:00)
[2017-03-09] MEDS: SODIUM CHLORIDE 0.9% FLUSH 10 ML FLUSH IVF SCH (10:40)
[2017-03-09] MEDS: CALCIUM ACETATE 667 MG CAP PO SCH ×2 (12:10→22:35)
--- NOTE | 2017-03-09 12:23 | HHI.CCPN ---
Subjective Remarks/Hospital Course Per nocturnal child life assistant 02/26/17 Responded to [facility] overhead. Upon arrival to F pod discovered that patient was awake and normotensive, with sinus tachycardia in the 150s in severe respiratory distress. He had not lost a pulse but [facility] ST[facility]LES had been called to facilitate rapid evaluation and stabilization. 76-year-old male with past history of obesity, COPD, obstructive sleep apnea on CPAP, CHF, peripheral neuropathy, hypertension, diabetes, hyperlipidemia, obesity who receives medical care at the [facility]. He presented to [facility] emergency department 02/25/17 with falls and difficulty with balance. He also reported that he was having shortness of breath and cough for several days. Was not febrile in hospital. On the day of admission he had some chest pain across his chest. Troponins negative. He was treated for pneumonia with Rocephin and azithromycin. He was placed on steroids Solu-Medrol 60 mg IV every 6 hours. Received Lasix at about 6 PM on due to concern for volume overload. Echo had poor images but systolic function appeared reduced. Tonight he developed acutely worsening shortness of breath and Dr. Galicia presented to the emergency Department to evaluate him where he was found to be tachypneic and wheezing. He was given a neb and preparations were being made to place him on BiPAP. He was becoming less responsive and was looking upward when I arrived and respiratory was placing on Bipap. He was in extremis and it was felt he would need emergent intubation prior to transfer to ICU. He denied chest pain. He was preoxygenated on Bipap, did seem to become more alert and nodded that he agreed with proceeding with intubation. He was intubated in F pod and then transferred to [facility]. Upon arrival to [facility] he was in atrial fibrillation in the 130s. SBP was 90/50 then 64/40. Central line was placed and he converted to sinus tachycadia in 101-130s. Subsequently he was normotensive with MAP 71. He was also sedated with propofol during the hypotension, improved after transition to fentanyl drip. 02/27: PA catheter placed yesterday. PA catheter readings are more consistent distributive/septic shock with high cardiac output with low SVR. CO 10-11. CI 2.8 SVRI [id number]. D/W Dr Butts. Will hold off Flolan challenge at this time for high PA pressure- mean 59-60. After weaning pressors, PA mean pressure is about 40. Patient's hemodynamics have improved, vasopressin is off now, Levophed is at 4 mics per minute. Give Bumex 2 mg 1 on Bumex drip at 2 mg per hour per Dr. Miner 02/28: Afebrile. Arousable on the vent and moves 4 extremities spontaneously but doesn't follow commands. No bowel movement since admission. Currently nothing by mouth. Remains on low-dose vasopressors including vasopressin and Levophed 03/01: [place] Luisa catheter removed yesterday. Adequate urine output on Bumex drip at 1 mg an hour. Afebrile. Currently replaced potassium. 03/02: Afebrile. Bumex drip has been discontinued. Currently replaced potassium. Positive BM overnight. We'll attempt spontaneous breathing trials today. 03/03: Afebrile. Adequate urine output. Positive BM. Tolerating tube feeds. Heparin drip for thoracentesis. Eyes are open but not following commands. Continues on Versed and fentanyl drips. 03/04: Afebrile. Status post thoracentesis yesterday -1150 years transudative. Positive BM 1. Tolerating tube feeding. Hypertensive. Hydralazine added per cardiology. 03/05: Patient remains intubated sedated. Bedside ultrasound shows Moderate left pleural effusion. Agitated on lightening sedation 03/06: Remains intubated sedated. Overnight FiO2 had to increase to 100 % due to desaturation, now reduced to 60% again. Chest x-ray shows bilateral pulmonary edema. Nephrology contacted- hemodialysis today with attempt at 4L removal. Status post bedside thoracentesis (Left side) yesterday with 1L transudative fluid removal 03/07: Tmax 99.2. Currently 99. Positive bloody secretions from ET tube. Heparin drip has been off since yesterday. Desaturated overnight FiO2 currently down to 40%. PEEP set at.8. Resting in bed in no acute distress. Eyes open and moves all 4 extremity spontaneously but not following commands. 03/08: Afebrile currently. Status post bronchoscopy yesterday with copious amounts of hemorrhagic secretions without obvious source. Transfuse 3 units. Receives overnight. Again no obvious source of bleeding. Tolerating tube feeding. Positive BM. Subjective 03/09: Tmax 99. Positive BM. Noted decreased blood pressure overnight. Increased PEEP: Concomitant cause. Chest x-ray today pending. ARDS type picture yesterday. Plan for hemodialysis today. Objective Vital Signs Date Time Temp Pulse Resp B/P Pulse Ox O2 Delivery O2 Flow Rate FiO2 03/09/17 11:50 98 55 03/09/17 10:00 109 03/09/17 08:00 99.0 22 94/53 Intake and Output 03/08/17 03/08/17 03/09/17 08:00 16:00 00:00 Intake Total 413 ml 1534 ml 758 ml Output Total 20 ml 75 ml 30 ml Balance 393 ml 1459 ml 728 ml Result Diagram: 03/09/17 0500 03/09/17 0500 Other Results Microbiology Date/Time Procedure Status Source Growth 03/07/17 17:20 Gram Stain - Final Complete Bronchial Washings Bronchial 03/07/17 17:20 Bronchial Culture - Final Complete Bronchial Washings Bronchial LIGHT GROWTH NORMAL RESPIRATORY JEN 03/07/17 17:20 Fungal Smear - Final Resulted Bronchial Washings Bronchial NO FUNGAL ELEMENTS SEEN. 03/07/17 17:20 Fungal Culture - Preliminary Resulted Yeast Species 03/07/17 17:20 Acid Fast Stain Received Bronchial Washings Bronchial Pending 03/07/17 17:20 Mycobacterial Culture Received Bronchial Washings Bronchial Pending 03/05/17 10:30 Acid Fast Stain - Final Resulted Fluid Pleural Fluid NO ACID FAST BACILLI SEEN 03/05/17 10:30 Mycobacterial Culture Resulted Fluid Pleural Fluid Pending Imaging Last Impressions Chest X-Ray 03/08/17 1207 Signed Impressions: Service Date/Time: Wednesday, March 08, 2017 12:22 - CONCLUSION: 1. Tubes and lines in good position. 2. Diffuse pulmonary consolidation likely representing some diffuse processes such as diffuse edema, infection or ARDS. 3. Increased density at the right base with silhouetting of the right hemidiaphragm. Some degree of right effusion needs to be considered. Bg Faust MD Abdomen X-Ray 03/07/17 0000 Signed Impressions: Service Date/Time: Tuesday, March 07, 2017 13:26 - CONCLUSION: No acute disease. Bg Faust MD Thoracentesis 03/03/17 0000 Signed Impressions: Service Date/Time: Friday, March 03, 2017 14:09 - CONCLUSION: Uncomplicated CT-guided right thoracentesis. Cash Cowan MD Chest CT 03/02/17 0000 Signed Impressions: Service Date/Time: Thursday, March 02, 2017 11:42 - CONCLUSION: Large bilateral pleural effusions and bibasilar consolidation and/or compressive collapse not present on the study from 2014. Travis Nguyen MD Lower Extremity Ultrasound 02/27/17 0000 Signed Impressions: Service Date/Time: Monday, February 27, 2017 09:13 - CONCLUSION: Normal examination. Evaristo Massey MD Head CT 02/24/17 0000 Signed Impressions: Service Date/Time: Friday, February 24, 2017 18:59 - CONCLUSION: 1. No acute hemorrhage or mass effect. 2. Acute sinusitis in the left maxillary sinus. Raul Craig MD Cervical Spine MRI 02/24/17 0000 Signed Impressions: Service Date/Time: Friday, February 24, 2017 22:46 - CONCLUSION: 1. Small central protrusion at C4-5 without canal stenosis. 2. Small central protrusion at C3-4 with minimal extruded component. 3. Mild broad-based disc bulges at C5- 6 and C6-7 levels without canal stenosis. Neto Duenas MD Cervical Spine CT 02/24/17 0000 Signed Impressions: Service Date/Time: Friday, February 24, 2017 19:02 - CONCLUSION: 1. Moderate narrowing of left neural foramina at the C3-4 level secondary to hypertrophic change involving the facet joint. 2. Mild degenerative change at the C5-6 and C6-7 levels. 3. Mild disc osteophyte complex at C5-6 with mild narrowing of the neural foramina. Raul Cragi MD Brain MRI 02/24/17 0000 Signed Impressions: Service Date/Time: Friday, February 24, 2017 22:46 - CONCLUSION: 1. No acute intracranial abnormality. 2. Left maxillary sinus disease. 3. No acute infarction. Neto Duenas MD Objective Remarks GENERAL: 56-year-old male, critically ill currently orotracheally intubated with bloody secretions SKIN: Warm and dry. No rash HEAD: Atraumatic. Normocephalic. EYES: Pupils equal and round 3-4 mm and reactive bilaterally. No scleral icterus. No injection or drainage. ENT: Orotracheally intubated NECK: Trachea midline. Right Subclavian, LIJ hemodialysis catheter clean dry and intact CARDIOVASCULAR: RRR. S1, S2. No S4. Faint 1/6 systolic murmur right upper sternal border RESPIRATORY: Few crackles appreciated bilaterally. Left greater than right Symmetrical excursion. GASTROINTESTINAL: Abdomen obese, protuberant, small umbilical reducible hernia. Bowel sounds are hypoactive. MUSCULOSKELETAL: Extremities with much improved lower extremity edema . Chronic venous stasis/lymphedema NEUROLOGICAL: Eyes are open. Positive corneal reflex. Positive gag. Moves all 4 extremity spontaneously but not following commands. Withdraws to pain upper and lower extremities bilaterally. A/P Assessment and Plan NEURO/PSYCH: Acute encephalopathy - secondary to hypercapnia and hypoxemia Peripheral neuropathy Allergic rhinitis Currently on propofol at 10 mcg/kg/m and Fentanyl at 50 mg per hour for sedation /analgesia while intubated. Goal of RASS -2. Daily sedation vacation MRI brain 02/24 - no acute abnormality MRI C-spinesmall central protrusion at C3/C4 with mild extruded central spinal cord C4-C5 without canal stenosis with mild disc bulging C5/6 and C6/7 EEG 02/27 revealed moderate to severe encephalopathy. No epileptiform activity Questionable history of EtOH use/abuse. We'll continue on thiamine/folate and multivitamin today Neurontin level2.3. Previously on 600 mg 3 times a day for shingles pain management. Currently on hold Holding Flonase twice a day/Zyrtec 5 mill grams daily. Resume as clinically indicated RESP: Acute hypoxemic and hypercapnic respiratory failure Acute COPD exacerbation Bilateral large pl effusions History of asthma? Acute on chronic pulmonary artery hypertension Objective sleep apnea - noncompliant with CPAP History of tobacco abuse [facility] /1./. Ventilator bundle DuoNeb every 4 hours with albuterol every 2 hours when necessary Continue Pulmicort 0.5/2 one inhalation twice a day Solumedrol 20 milligrams every q12 to be weaned over the next several days s/p thoracentesis left-sided 03/05 with 1L removed -transudate Right thoracentesis 03/03 likely transudative. -1150 Home medication regimen is Symbicort 160/4.5 to press twice a day, Spiriva 18 inhalation daily and Ventolin 4 times a day with duo nebs aerosols for breakthrough every 4 hours when necessary According to records, noncompliant with CPAP for SEBASTIAN Airway edema noted particularly large arytenoid edema noted on intubation 02/26 with anterior airway. Intubated with Glidescope and 7.5 ETT. Bronchoscopy 03/07 revealed no obvious source of bleeding. Bloody secretions throughout. See note Cardiovascular: Pulmonary edema Shock, distributive/septic resolved Acute on chronic systolic heart failure EF 25-30% Moderate Moderate to severe TR NSTEMI Paroxysmal atrial fibrillation/flutter History of Hypertension Hyperlipidemia History of coronary artery disease Currently off all vaso pressors. Additional fl removal today with HD (target 3L) PAC placed 02/26-initially distributive shock (CI 2.8, SVRI 1300). Cardiac index at 2.1. Cardiac output 5.2 and SVR 1250 this could be possibly be vaso constrictive/late sepsis versus effects of diuresis It is unclear whether pulmonary hypertension is secondary to left heart failure versus SEBASTIAN versus COPD Investment Fund Manager was unable to do transpulmonary gradient secondary to unable to wedge balloon [place] Luisa catheter removed 02/[address] Butts IV heparin for NSTEMI and A Fib rate discontinued secondary to hemoptysis. Bumex 2 mg IV 1 02/27 and initiated Bumex infusion currently discontinued as of 03/03 Continue aspirin 81 mg daily Switched amiodarone drip secondary to 7 beat of V. tach at 0953 03/07 patient switched back to 400 twice a day 03/08 Troponin peaked at 27. Left heart catheterization when clinically stable Continue atorvastatin 80 mg daily at bedtime for dyslipidemia Unable to use beta charles secondary due to hypotension. On Lopressor 200 mg daily at home. Other blood pressures include lisinopril 40 mg daily and HCTZ 12.5 mg daily. On hold due to acute kidney injury Started hydralazine 5 milligrams IV every [address] Butts Echo 02/27: - Systolic function was severely reduced 25% to 30%. Diffuse hypokinesis. -Aortic valve: moderate stenosis. Tricuspid valve: Moderate/severe regurgitation. SUZAN 70 mmHg Echo 03/06 -- Left ventricle: The cavity size was mildly dilated. Wall thickness was increased in a pattern of mild LVH. There was concentric hypertrophy. Systolic function was severely reduced. The estimated ejection fraction was in the range of 20% to 25%. Diffuse hypokinesis. - Aortic valve: Valve mobility was mildly restricted. There was mild to moderate stenosis. Valve area: 1.37cm^2 (VTI). Valve area: 1.13cm^2 (Vmax). - Mitral valve: Mild regurgitation. - Left atrium: The atrium was mildly dilated. - Right ventricle: The cavity size was mildly dilated. - Atrial septum: No defect or patent foramen ovale was identified. - Tricuspid valve: Mild regurgitation. - Pulmonary arteries: PA peak pressure: 69mm Hg (S). Impressions: No colorflow noted across the ventricular septum concerning for a VSD. No papillary muscle ruptures noted. GI: Constipation Glucerna 1.5 goal 55 cc an hour Protonix 40 mg IV daily Colace and Senokot twice a day for bowel regimen Having BM Start Reglan 5 every 8 for high residual KUB 03/07 revealed nonspecific bowel gas pattern. : BPH Holding doxazosin 8 mg daily light of hypotension Maintain Barrios for accurate I's and O's in a critically ill patient FEN/RENAL: Acute kidney injury/ATN Monitor intake and output. Monitor electrolytes Bumex discontinued HD started 03/05, 2L fluid removed. Hemodialysis is planned for today Urine output 275 past 24 hours ID: Acute community acquired pneumonia Septic shock-resolved Continue Zosyn ->Levaquin started 03/06 discontinued his Zithromax after 8 days. Microbiology: lood culture 2 setsno growth to date 02/25sputum - no growth 02/25urine Legionella and pneumococcal antigen negative 02/25influenza screen negative 02/26 - urine - no growth 02/26 - blood cultures 2 - no growth 03/06: sputum culture - stenotrophomonas 03/07 - bronchoscopy -[facility] Consult infectious disease with resistance stenotrophomonas with renal failure HEME: Normocytic anemia Leukocytosis Thrombocytopenia No indication for transfusion of blood products at this time Heparin drip off secondary to bloody secretions. As you 3 units PRBCs 03/07. Unknown if from hemodilution versus renal failure however no active bleeding appreciated currently. ENDO: Poorly controlled diabetes mellitus - hemoglobin A1c of 8.6 Levemir 40 units twice a day with sliding scale insulin 4/moderate regimen. 8 units sliding scale insulin past 24 hours At home on Lantus 35 units twice a day and Novulin R 15 units 3 times a day with meals MSK Chronic lymphedema Osteoporosis/osteoarthritis Lac-Hydrin twice a day for lower extremity lymphedema 02/27 venous Dopplers showed no DVT Hold Risedronate 35 mg mg weekly for osteoporosis PROPH: Protonix 40 mg IV daily for stress ulcer prophylaxis. Heparin drip has been held secondary to bloody secretions. We'll start subcutaneous ACCESS: Right subclavian central venous line placed 02/26-03/08 Right IJ Cordis/day #4 discontinued 03/02 LIJ Vascath placed 03/05/17 day #4 Right IJ CVL day #2 placed 03/08 Full code Critical Care: The total critical care time was 35 minutes. Time to perform other separately billable procedures was not included in the critical care time. I discussed with at bedside. Care plan discussed all questions answered -> .Noni Stokes. Planned bronchoscopy today for hemoptysis. Ramo Almaraz MD Mar 09, 2017 12:23 Ramo Almaraz MD Mar 09, 2017 12:23
[2017-03-09] MEDS ORDERED: SULFAMETHOX/TRIMETHOPRIM 160 MG/10 ML VIAL IV SCH ×2 (15:45)
[2017-03-09] MEDS: ALBUMIN HUMAN 25% 25 GM/100 ML BAGP IV PRN (16:42)
[2017-03-09] MEDS: GENTAMICIN SULFATE (DIALYSIS USE ONLY) 20 MG/2 ML VIAL IV PRN (18:33)
[2017-03-09] MEDS: HEPARIN SODIUM - IV 10,000 UNITS/10 ML VIAL PRN (18:33)
--- NOTE | 2017-03-09 19:58 | MB ---
cc: LANDRY KEENAN MD DATE OF CONSULTATION 03/09/[address] Almaraz. REASON FOR CONSULTATION Pneumonia due to Stenotrophomonas. Antibiotic assistance. Acute renal failure. HISTORY OF PRESENT ILLNESS This is a 76-year-old white male who was admitted to the hospital after presenting to emergency department on 02/24. The patient presented with neuro symptoms including involuntary movements and tingling of his upper extremities. The patient was admitted and subsequently intubated and remains on the ventilator. He was noted to have pneumonia in the right lower lobe on admission. He was noted to have sustained myocardial infarction with a [id number] myocardial infarction. He also has developed acute renal failure and he is undergoing hemodialysis. His ejection fraction is 25%. He also is noted to have severe pulmonary hypertension. He has also had intermittent episodes of NSVT. Multiple cultures have been taken since admission and previously sputum culture and urine culture and blood cultures were negative. The patient has sputum culture from 03/06 which grew with Stenotrophomonas which was the first positive sputum culture. He also had a bronchial washing with yeast species from 03/07. His chest x-ray is showing diffuse pulmonary consolidation and also there is increased density at the right base. The patient is on sedation but he does not respond. It is reported that his respiratory is increased when sedation weaning was attempted. His white blood cell count is 15,000 today. He is about to undergo dialysis for today. He had a central line in place for about a week. It has been replaced. He also has a dialysis catheter in place. The patient's estimated GFR is currently 9. The GFR on admission was 36. The patient is produced approximately 300 mL of urine a day. PAST MEDICAL HISTORY 1. Diabetes mellitus. 2. Hypertension. 3. COPD. 4. CHF. 5. Coronary artery disease. 6. Sleep apnea. 7. Right knee surgery. 8. Hemorrhoidectomy. 9. Fistula repair. 10. Left wrist surgery. 11. Tonsillectomy. ALLERGIES ZYBAN. TERAZOSIN, HYDROCODONE, BUPROPION. MEDICATIONS 1. Levaquin. 2. Cordarone. 3. PhosLo. 4. Methyl prednisolone. 5. Reglan. 6. Mannitol. 7. Albumin. 8. Piperacillin / Tazobactam. 9. Insulin. 10. Levemir. 11. Folate. 12. Theragran. 13. Pulmicort. 14. Protonix. SOCIAL HISTORY Unable to obtain. History reported on the records indicate daily alcohol use. No tobacco. No illicit drugs. FAMILY HISTORY Unable to obtain. REVIEW OF SYSTEMS Unable to obtain. PHYSICAL EXAMINATION GENERAL: This is a well-developed male who is on the ventilator and is sedated and unresponsive. VITAL SIGNS: Include temperature of 99 degrees. BP 129/60, heart rate 108. The patient is on 55% FIO2. HEENT: Head is atraumatic. Extraocular movements cannot be assessed. Oropharynx intubated. NECK: Supple. No mass or swelling. LUNGS: Coarse rhonchi bilateral. HEART: Regular rate and rhythm without audible murmurs or rubs or gallops. ABDOMEN: Bowel sounds present, markedly distended. Soft. RECTAL: Not performed. EXTREMITIES: No clubbing or cyanosis. 1-2+ edema of the upper extremities. SKIN: No rash. Ecchymosis at the upper extremities. NEUROLOGIC: Unable to assess. LABORATORY DATA WBC 15.0, platelet count 142, hemoglobin 9.9, 95% neutrophils. Creatinine 6.31, BUN 149, estimated GFR 9. IMPRESSION 1. Bilateral pneumonia. Positive sputum culture with Pseudomonas and yeast growing on the bronch. washing. 2. Acute respiratory failure. 3. Acute renal failure. 4. Leukocytosis. 5. Myocardial infarction in patient with low ejection fraction and also noted to have pulmonary hypertension. RECOMMENDATIONS 1. Continue Levaquin. 2. Continue piperacillin / Tazobactam. 3. Add Bactrim intravenous for Stenotrophomonas. The Bactrim will be adjusted for renal function. 4. Monitor clinical response. The patient is very clinically ill with multiorgan failure. However, he is unlikely to improve with the Stenotrophomonas pneumonia without adequate treatment and it shows intermediate sensitivity to Levaquin and therefore Bactrim is recommended. I will also ask the lab to do sensitivities to a other antibiotics as well. Thank you for this consultation. Landry Keenan MD FD/EMILEE /3:22 PM /7:24 PM ONDINA
--- NOTE | 2017-03-09 20:03 | RADRPT ---
EXAM DATE/TIME: 03/09/2017 19:16 [place] COMPARISON: CHEST SINGLE AP, March 08, 2017, 12:22. INDICATIONS : Respiratory distress. MEDICAL HISTORY : None. SURGICAL HISTORY : None. ENCOUNTER: Subsequent ACUITY: 3 weeks PAIN SCORE: Non-responsive. LOCATION: Bilateral chest FINDINGS: NG tube tip overlies the proximal stomach. There are diffuse bilateral parenchymal infiltrates. Endot nell tube and left-sided jugular line are satisfactory in position. Right jugular line tip overlie s the SVC. NG tube courses beneath the diaphragm.. CONCLUSION: Bilateral pulmonary air space disease again seen. Evaristo Massey MD on March 09, 2017 at 20:01 Board Certified Radiologist. This report was verified electronically.
[2017-03-09] MEDS: ASPIRIN EC 81 MG TABEC PO SCH (20:29)
[2017-03-09] MEDS: ATORVASTATIN 80 MG TAB PO SCH (20:29)
[2017-03-10] VITALS (21 sets, daily range): BP systolic 84–115; BP diastolic 51–67; PULSE 67–128; RESP 15–20; TEMP 96.5–100.3; O2SAT 88–100
[2017-03-10] MEDS: PIPERACIL-TAZO 2.25 GM PREMIX 50 ML IV SCH ×4 (00:12→16:55)
[2017-03-10] MEDS: hydrALAZINE HCL 20 MG/ML VIAL IV PUSH SCH ×6 (00:12→21:14)
[2017-03-10] MEDS: RESP: ALBUTEROL 2.5 MG/IPRATROPIUM 0.5 MG NEB (SCH) INH ×6 (03:07→23:46)
[2017-03-10] MEDS: RESP: SODIUM CHLORIDE 3% 4 ML NEB NEB SCH ×6 (03:07→23:46)
[2017-03-10] MEDS: INSULIN NovoLIN REGULAR SUPPLEMENTAL SCALE SQ SCH ×6 (04:00→21:14)
[2017-03-10] MEDS: CHLORHEXIDINE GLUCONATE 2 % 1 PACK (2 CLOTHS) TOP SCH (04:00)
[2017-03-10 04:22] LABS: BASOPHIL % 0.2 % (0.0-2.0); HEMATOCRIT 23.4 % (39.0-51.0); HEMO FLAGS DIFF FINAL; LYMPH % 1.7 % (9.0-44.0); LYMPHOCYTE # 0.2 TH/MM3 (1.0-4.8); MEAN CORPUSCULAR HEMOGLOBIN 30.9 PG (27.0-34.0); MEAN CORPUSCULAR HGB CONC 35.1 % (32.0-36.0); MONO % 4.1 % (0.0-8.0); PLATELET COUNT 121 TH/MM3 (150-450); RED BLOOD COUNT 2.65 MIL/MM3 (4.50-5.90); RED CELL DISTRIBUTION WIDTH 14.7 % (11.6-17.2); WHITE BLOOD COUNT 10.6 TH/MM3 (4.0-11.0)
[2017-03-10] MEDS: ARTIFICIAL TEARS OPTH SOLN 15 ML BTL EACH EYE SCH ×3 (04:29→22:06)
[2017-03-10 05:07] LABS: MAGNESIUM 2.9 MG/DL (1.5-2.5)
[2017-03-10] MEDS: METOCLOPRAMIDE HCL 10 MG/2 ML VIAL IV PUSH SCH ×3 (05:13→22:06)
[2017-03-10 05:17] LABS: BICARBONATE 29.1 MEQ/L (21.0-32.0); POTASSIUM 5.1 MEQ/L (3.5-5.1)
[2017-03-10 05:55] LABS: AUTOMATED NEUTROPHIL # 9.5 TH/MM3 (1.8-7.7); BASOPHIL % 0.2 % (0.0-2.0); HEMATOCRIT 23.4 % (39.0-51.0); HEMO FLAGS DIFF FINAL; LYMPH % 1.6 % (9.0-44.0); LYMPHOCYTE # 0.2 TH/MM3 (1.0-4.8); MEAN CELL VOLUME 88.9 FL (80.0-100.0); MEAN CORPUSCULAR HEMOGLOBIN 30.6 PG (27.0-34.0); MEAN CORPUSCULAR HGB CONC 34.5 % (32.0-36.0); NEUT % 94.2 % (16.0-70.0); PLATELET COUNT 121 TH/MM3 (150-450); RED BLOOD COUNT 2.64 MIL/MM3 (4.50-5.90); RED CELL DISTRIBUTION WIDTH 14.9 % (11.6-17.2); WHITE BLOOD COUNT 10.1 TH/MM3 (4.0-11.0)
[2017-03-10 06:01] LABS: ANION GAP 13 MEQ/L (5-15)
[2017-03-10 06:04] LABS: ALKALINE PHOSPHATASE 45 U/L (45-117); ALT (GPT) 29 U/L (12-78); AST (GOT) 11 U/L (15-37); BICARBONATE 28.1 MEQ/L (21.0-32.0); BLOOD UREA NITROGEN 129 MG/DL (7-18); CHLORIDE 98 MEQ/L (98-107); GLOMERULAR FILTRATION RATE 10 ML/MIN (>89); MAGNESIUM 2.9 MG/DL (1.5-2.5); POTASSIUM 5.4 MEQ/L (3.5-5.1); SODIUM (NA) 139 MEQ/L (136-145); TOTAL BILIRUBIN ADULT 0.6 MG/DL (0.2-1.0)
[2017-03-10] MEDS ORDERED: DEXTROSE 50% IN WATER 50 ML VIAL(D50) IV PUSH ONE (07:15)
[2017-03-10] MEDS ORDERED: SODIUM BICARBONATE 8.4% SOLN 50 MEQ/50 ML VIAL SLOW IVP ONE (07:15)
[2017-03-10] MEDS ORDERED: CALCIUM GLUCONATE 10% 1 GM/10 ML VIAL SLOW IVP ONE (07:15)
[2017-03-10] MEDS ORDERED: SODIUM POLYSTYRENE SULFONATE SUSP 15 GM/60 ML CUP PO ONE (07:15)
[2017-03-10] MEDS: SENNOSIDES SYRUP 8.8 MG/5 ML CUP PO SCH ×2 (07:30→21:15)
[2017-03-10] MEDS ORDERED: INSULIN HUMAN REGULAR 1,000 UNITS/10 ML VIAL IV PUSH ONE (07:30)
[2017-03-10] MEDS: DOCUSATE SODIUM 100 MG CAP PO SCH ×2 (07:30→21:15)
[2017-03-10] MEDS: RESP: BUDESONIDE 0.5 MG/2 ML NEB NEB SCH ×2 (07:56→21:20)
--- NOTE | 2017-03-10 07:56 | PD.CARD.PN ---
Subjective Subjective Remarks intubated, mechanically ventilated (Robert Marte) Objective Vital Signs / I&O Vital Signs Date Time Temp Pulse Resp B/P Pulse Ox O2 Delivery O2 Flow Rate FiO2 03/10/17 06:00 71 03/10/17 04:00 97.3 81 18 115/58 98 03/10/17 04:00 81 03/10/17 04:00 50 03/10/17 03:48 100 50 03/10/17 02:00 81 03/10/17 01:00 97 55 03/10/17 00:00 96.5 83 20 107/56 97 03/10/17 00:00 55 03/10/17 00:00 83 03/09/17 22:02 98 55 03/09/17 22:00 95 03/09/17 20:00 55 03/09/17 20:00 86 03/09/17 20:00 97.5 86 18 109/55 96 03/09/17 19:21 96 55 03/09/17 18:00 85 03/09/17 16:29 97 55 03/09/17 16:00 93 03/09/17 16:00 98.8 93 22 90/55 97 03/09/17 16:00 60 03/09/17 11:50 98 55 03/09/17 10:00 109 03/09/17 08:00 78 03/09/17 08:00 60 03/09/17 08:00 99.0 90 22 94/53 92 03/09/17 07:54 100 55 I/O 03/09/17 03/09/17 03/09/17 03/10/17 03/10/17 03/10/17 07:00 15:00 23:00 07:00 15:00 23:00 Intake Total 459 ml 680 ml 1519 ml 716 ml Output Total 150 ml 240 ml 2400 ml 0 ml Balance 309 ml 440 ml -881 ml 716 ml Intake Oral 0 ml 0 ml 0 ml IV Total 141 ml 295 ml 602 ml 330 ml Tube Feeding 318 ml 385 ml 857 ml 386 ml Other 60 ml Output Urine Total 150 ml 240 ml 400 ml 0 ml Hemodialysis 2000 ml # Bowel Movements 1 1 1 2 Physical Exam GENERAL: Well-nourished, well-developed patient in no apparent distress. NECK: No JVD. No carotid bruit. CARDIOVASCULAR: Regular rate and rhythm. S1/S2 no murmur, rub, or gallop. RESPIRATORY: No accessory muscle use. rhonchi to auscultation. Breath sounds equal bilaterally. GASTROINTESTINAL: Abdomen soft, non-tender, nondistended. MUSCULOSKELETAL: Extremities without clubbing, cyanosis, or edema. Laboratory Laboratory Tests Test 03/10/17 03/10/17 03:15 05:25 White Blood Count 10.6 TH/MM3 10.1 TH/MM3 Red Blood Count 2.65 MIL/MM3 2.64 MIL/MM3 Hemoglobin 8.2 GM/DL 8.1 GM/DL Hematocrit 23.4 % 23.4 % Mean Corpuscular Volume 88.0 FL 88.9 FL Mean Corpuscular Hemoglobin 30.9 PG 30.6 PG Mean Corpuscular Hemoglobin 35.1 % 34.5 % Concent Red Cell Distribution Width 14.7 % 14.9 % Platelet Count 121 TH/MM3 121 TH/MM3 Mean Platelet Volume 9.9 FL 9.7 FL Neutrophils (%) (Auto) 94.0 % 94.2 % Lymphocytes (%) (Auto) 1.7 % 1.6 % Monocytes (%) (Auto) 4.1 % 4.0 % Eosinophils (%) (Auto) 0.0 % 0.0 % Basophils (%) (Auto) 0.2 % 0.2 % Neutrophils # (Auto) 10.0 TH/MM3 9.5 TH/MM3 Lymphocytes # (Auto) 0.2 TH/MM3 0.2 TH/MM3 Monocytes # (Auto) 0.4 TH/MM3 0.4 TH/MM3 Eosinophils # (Auto) 0.0 TH/MM3 0.0 TH/MM3 Basophils # (Auto) 0.0 TH/MM3 0.0 TH/MM3 CBC Comment DIFF FINAL DIFF FINAL Differential Comment Sodium Level 139 MEQ/L 139 MEQ/L Potassium Level 5.1 MEQ/L 5.4 MEQ/L Chloride Level 98 MEQ/L 98 MEQ/L Carbon Dioxide Level 29.1 MEQ/L 28.1 MEQ/L Anion Gap 12 MEQ/L 13 MEQ/L Blood Urea Nitrogen 122 MG/DL 129 MG/DL Creatinine 5.29 MG/DL 5.56 MG/DL Estimat Glomerular Filtration 11 ML/MIN 10 ML/MIN Rate Random Glucose 205 MG/DL 226 MG/DL Calcium Level 8.1 MG/DL 8.3 MG/DL Phosphorus Level 8.6 MG/DL 7.9 MG/DL Magnesium Level 2.9 MG/DL 2.9 MG/DL Albumin 3.3 GM/DL 3.3 GM/DL Total Bilirubin 0.6 MG/DL Aspartate Amino Transf 11 U/L (AST/SGOT) Alanine Aminotransferase 29 U/L (ALT/SGPT) Alkaline Phosphatase 45 U/L Total Protein 5.8 GM/DL (Robert Marte) Assessment and Plan Problem List: (1) NSTEMI (non-ST elevated myocardial infarction) (2) Acute CHF (3) Shock (4) Atrial fibrillation Assessment and Plan Acute respiratory distress appears to be multifactorial. PNA, COPD, CHF. FIO2 50% CHF, acute systolic Cardiomyopathy - EF 25%. Severe PHTN NSTEMI Sepsis At least moderate aortic stenosis. HTN - well controlled ARF - worsening still, for dialysis today NSVT - again intermittent wide QRS complex tachycardia in triplets and quadruplets on amiodarone (Robert Marte) Assessment and Plan \ multiorgan issues with ARDS picture. GIB/anemia. continue current mgt from cardio standpoint. will sign off. please call with any questions or if he makes a more meaningful recovery and cardiac input is needed. (Jong Butts MD) Robert Marte Mar 10, 2017 07:56 Jong Butts MD Mar 10, 2017 16:35
[2017-03-10] MEDS: CHLORHEXIDINE 0.12% (ORAL KIT) 15 ML CUP MT SCH ×2 (08:00→20:14)
[2017-03-10] MEDS: AMIODARONE 200 MG TAB PO SCH ×2 (09:00→21:15)
[2017-03-10] MEDS: PANTOPRAZOLE SODIUM 40 MG VIAL IV SCH (09:00)
[2017-03-10] MEDS ORDERED: INSULIN DETEMIR 100 UNITS/ML VIAL SQ SCH (09:00)
[2017-03-10] MEDS: SODIUM CHLORIDE 0.9% FLUSH 10 ML FLUSH IVF SCH (09:00)
[2017-03-10] MEDS: FOLIC ACID 1 MG TAB PO SCH (09:00)
[2017-03-10] MEDS: THIAMINE INJ 100 MG in SODIUM CHLORIDE 0.9% INJ 100 ML IV SCH (09:00)
[2017-03-10] MEDS: LACTIC ACID (AMMONIUM LACTATE) 12% LOTION 225 GM BTL TOPICAL SCH ×2 (09:00→21:14)
[2017-03-10] MEDS: SODIUM CHLORIDE 0.9% FLUSH 10 ML FLUSH IV FLUSH SCH ×2 (09:00→20:14)
[2017-03-10] MEDS: MULTIVITAMIN TAB PO SCH (09:00)
[2017-03-10] MEDS: BENEPROTEIN POWDER 1 PACK G-TUBE SCH ×3 (09:00→16:55)
[2017-03-10] MEDS: CALCIUM ACETATE 667 MG CAP PO SCH ×3 (09:00→16:55)
[2017-03-10] MEDS: methylPREDNISolone SOD SUCC 40 MG/1 ML VIAL IV PUSH SCH (09:00)
--- NOTE | 2017-03-10 09:39 | HHI.NPPN ---
Subjective Complaints: Obesity General Problems: Edema Renal Failure: Acute Interval History Dialyzed yesterday. Appears fluid overloaded. PEEP remains at 10. (Katina Park) Review of Systems General General Remarks unable to evaluate (Katina Park) Objective Data Data 03/09/17 03/10/17 18:59 06:59 Intake Total 680 ml 2235 ml Output Total 2240 ml 400 ml Balance -1560 ml 1835 ml Intake Oral 0 ml 0 ml IV Total 295 ml 932 ml Tube Feeding 385 ml 1243 ml Other 60 ml Output Urine Total 240 ml 400 ml Hemodialysis 2000 ml # Bowel Movements 1 3 Vital Signs Date Time Temp Pulse Resp B/P Pulse Ox O2 Delivery O2 Flow Rate FiO2 03/10/17 07:57 98 50 03/10/17 06:00 71 03/10/17 04:00 97.3 81 18 115/58 98 03/10/17 04:00 81 03/10/17 04:00 50 03/10/17 03:48 100 50 03/10/17 02:00 81 03/10/17 01:00 97 55 03/10/17 00:00 96.5 83 20 107/56 97 03/10/17 00:00 55 03/10/17 00:00 83 03/09/17 22:02 98 55 03/09/17 22:00 95 03/09/17 20:00 55 03/09/17 20:00 86 03/09/17 20:00 97.5 86 18 109/55 96 03/09/17 19:21 96 55 03/09/17 18:00 85 03/09/17 16:29 97 55 03/09/17 16:00 93 03/09/17 16:00 98.8 93 22 90/55 97 03/09/17 16:00 60 03/09/17 11:50 98 55 03/09/17 10:00 109 (Katina Park) -: 03/10/17 0525 03/10/17 0525 Imaging Last 72 hours Impressions Chest X-Ray 03/09/17 1600 Signed Impressions: Service Date/Time: Thursday, March 09, 2017 19:16 - CONCLUSION: Bilateral pulmonary air space disease again seen. Evaristo Massey MD Chest X-Ray 03/08/17 1207 Signed Impressions: Service Date/Time: Wednesday, March 08, 2017 12:22 - CONCLUSION: 1. Tubes and lines in good position. 2. Diffuse pulmonary consolidation likely representing some diffuse processes such as diffuse edema, infection or ARDS. 3. Increased density at the right base with silhouetting of the right hemidiaphragm. Some degree of right effusion needs to be considered. Bg Faust MD Tubes & Lines: Vas-Cath, Barrios Tubes & Lines Comment TLC right SC VC left IJ Drip Comment versed, fentanyl (Katina Park B. CLIENT SERVICES ASSISTANT) Physical Exam General Appearance: Sleeping, Obese Appearance Remarks intubated, sedated, not following commands (XavierKatina B. CLIENT SERVICES ASSISTANT) Ears & Nose Ears & Nose Exam: Nasal Mucosa [place] (XavierKatina B. CLIENT SERVICES ASSISTANT) Throat Throat Exam: Oral Mucosa [place] & Moist (XavierKatina B. CLIENT SERVICES ASSISTANT) Pulmonary Resp Exam: Breath Sounds Equal, No Distress, Rhonchi, Decreased Bases, Diminished Breath Sounds Resp Remarks wheezing (XavierKatina B. CLIENT SERVICES ASSISTANT) Cardiology CV Exam: Normal Sinus Rhythm, Good Perfusion, Irregular, Tachycardia (Xavier Katina B. CLIENT SERVICES ASSISTANT) Gastrointestinal/Abdomen GI Exam: Soft, Non-Tender, Bowel Sounds Present, Distended (Petr Parkon B. CLIENT SERVICES ASSISTANT) Genitourinary Exam: Clear Urine (Petr Parkon B. CLIENT SERVICES ASSISTANT) Musculoskeletal MS Exam: Joints Intact, Normal Tone, Unable to Ambulate (XavierKatina B. CLIENT SERVICES ASSISTANT) Integumentary Skin Exam: Clear, Warm, Dry, Intact (XavierKatina B. CLIENT SERVICES ASSISTANT) Extremeties Extremities Exam: Moderate Edema, Pitting Edema (XavierKatina B. CLIENT SERVICES ASSISTANT) Neurologic Neuro Exam: Unresponsive, Sedated (XavierKatina B. CLIENT SERVICES ASSISTANT) Assessment/Plan Assessment Summary: RAGHAVENDRA/Acute Renal Failure, Acute Tubular Necrosis, Hypertension, Diabetes Mellitus Problem List: (1) Acute renal failure superimposed on chronic kidney disease Plan: ATN from hypotension, renal hypoperfusion Vascath placed and HD was initiated 03/05 He had dialysis yesterday, 2L UF creatinine is worse, has fluid overload dialysis today, reevaluate need for additional treatments tomorrow non oliguric, monitor output Avoid nephrotoxic agents, IVF daily renal panel continue phoslo for hyperphosphatemia (2) NSTEMI (non-ST elevated myocardial infarction) Plan: Cardiology following. Catheterization is planned once he is more stable, but renal function has declined necessitating dialysis (3) CHF exacerbation Plan: worsened by acute LA. monitor fluid volume status UF with dialysis as needed/tolerated (4) Pneumonia Plan: Currently on Zosyn and Levaquin he has been placed on Bactrim, which can raise serum creatinine and potassium levels ID following continues IV solumedrol monitor clinically Blood cultures are negative , sputum cultures with Stenotrophomonas vent settings: A/C 15/620/45/10 will need tracheostomy (5) Type 2 diabetes mellitus Plan: continue insulin therapy blood sugar elevated, of note he is on steroids recommend 140-180 mg/dL (Katina Park) Plan patient was seen during dialysis. UF goal is 3 liters. He is tachycardic, BP is low. We will wait and see how reacts to fluid removal. Prognosis is guarded. ( Pablo Miner MD) Problem Qualifiers (1) CHF exacerbation: Qualified Code: I50.9 - Acute on chronic congestive heart failure, unspecified congestive heart failure type (2) Pneumonia: Qualified Code: J18.1 - Pneumonia of right lower lobe due to infectious organism Katina Park Mar 10, 2017 09:39 Pablo Miner MD Mar 10, 2017 11:46
[2017-03-10] MEDS: MANNITOL 12.5 GM/50 ML VIAL IV PRN (11:00)
--- NOTE | 2017-03-10 11:00 | RADRPT ---
EXAM DATE/TIME: 03/10/2017 10:20 [facility] COMPARISON: No previous studies available for comparison. INDICATIONS : Patient anemic, rule out retroperitoneal hematoma. ORAL CONTRAST: No oral contrast ingested. RADIATION DOSE: 23.38 CTDIvol (mGy) MEDICAL HISTORY : Cardiovascular disease. Congestive heart failure. Hypertension. SURGICAL HISTORY : None. ENCOUNTER: Initial ACUITY: 1 day PAIN SCALE: Non-responsive LOCATION: Abdomen TECHNIQUE: Volumetric scanning of the abdomen and pelvis was performed. Using automated exposure control and ad justment of the mA and/or kV according to patient size, radiation dose was kept as low as reasonably achievable to obtain optimal diagnostic quality images. FINDINGS: LOWER LUNGS: There are bilateral pleural effusions right greater than left. There is mild cardiomegaly. Nasogastri c tube is seen coursing through the distal esophagus and into the stomach. LIVER: Homogeneous density without lesion. There is no dilation of the biliary tree. No calcified gallston es. The gallbladder appears unremarkable. SPLEEN: Normal size without lesion. PANCREAS: Within normal limits. KIDNEYS: Normal in size and shape. There is no mass, stone, or hydronephrosis. Renal vascular calcifications are present bilaterally. ADRENAL GLANDS: Within normal limits. VASCULAR: There is no aortic aneurysm. Atherosclerotic calcifications are present. BOWEL/MESENTERY: The small bowel is decompressed with inflammatory change. There are multiple small air-fluid levels i n portions of the transverse and descending colon. There is a normal gas-filled appendix. ABDOMINAL WALL: Within normal limits. RETROPERITONEUM: There is no lymphadenopathy. BLADDER: A Barrios catheter is present with no evidence of mass. REPRODUCTIVE: Within normal limits. INGUINAL: There is no lymphadenopathy or hernia. MUSCULOSKELETAL: Within normal limits for patient age. CONCLUSION: 1. There is no retroperitoneal hematoma. 2. Bilateral pleural effusions right greater than left. 3. A nonspecific, nonobstructed bowel gas pattern most consistent with a mild ileus and/or gastroente ritis. Raul Craig MD on March 10, 2017 at 10:56 Board Certified Radiologist. This report was verified electronically.
[2017-03-10] MEDS: ALBUMIN HUMAN 25% 25 GM/100 ML BAGP IV PRN ×2 (12:07→13:11)
--- NOTE | 2017-03-10 12:10 | HHI.IDPN ---
Note Infectious Disease Note Patient is on the vent. 70% FIO2. Being dialysed. No urine output this am. BP stable. Afib. Afebrile. PAST MEDICAL HISTORY 1. Diabetes mellitus. 2. Hypertension. 3. COPD. 4. CHF. 5. Coronary artery disease. 6. Sleep apnea. 7. Right knee surgery. 8. Hemorrhoidectomy. 9. Fistula repair. 10. Left wrist surgery. 11. Tonsillectomy. ALLERGIES ZYBAN. TERAZOSIN, HYDROCODONE, BUPROPION. MEDICATIONS Medications (Trade) Dose Ordered Sig/Steve Route PRN Reason Start Time Stop Time Status Last Admin Dose Admin Sodium Chloride (NS Flush) 2 ml UNSCH PRN IV FLUSH FLUSH AFTER USING IV ACCESS 02/24/17 22:00 Sodium Chloride (NS Flush) 2 ml BID IV FLUSH 02/25/17 09:00 03/10/17 09:00 Naloxone HCl (Narcan Inj) 0.4 mg UNSCH PRN IV SEE LABEL COMMENTS 02/24/17 22:00 Guaifenesin (Mucinex Er) 600 mg BID PO 02/25/17 13:00 Hold 02/25/17 20:51 Benzonatate (Tessalon) 200 mg Q8H PRN PO COUGH 02/25/17 13:00 Hold Furosemide (Lasix Inj) 40 mg BID@09,18 IV PUSH 02/25/17 18:00 Hold 02/25/17 17:44 Aspirin (Ecotrin Ec) 81 mg HS PO 02/25/17 21:00 03/09/17 20:29 Atorvastatin Calcium (Lipitor) 80 mg HS PO 02/25/17 21:00 03/09/17 20:29 Budesonide/ Formoterol Fumarate (Symbicort 160-4.5 Inh) 2 puff BID INH 02/25/17 21:00 Hold 02/25/17 20:51 Metoprolol Succinate (Toprol Xl) 200 mg DAILY PO 02/26/17 09:00 Hold Chlorhexidine Gluconate 15 ml 15 ml BID@08,20 MT 02/26/17 08:00 03/10/17 08:00 Sodium Chloride (NS 1000 ml Inj) 1,000 ml @ 84 mls/hr [id number] IV 02/26/17 01:18 Hold 02/26/17 01:18 Acetaminophen (Tylenol) 650 mg Q6H PRN PO PAIN 1-10 AND/OR FEVER >101F 02/26/17 01:30 Pantoprazole Sodium (Protonix Inj) 40 mg DAILY IV 02/26/17 09:00 03/10/17 09:00 Ondansetron HCl (Zofran Inj) 4 mg Q6H PRN IV NAUSEA OR VOMITING 02/26/17 01:30 Docusate Sodium (Colace) 100 mg BID PO 02/26/17 09:00 03/06/17 20:20 Miscellaneous Information 1 [id number] XX 02/26/17 01:30 02/26/17 01:30 Chlorhexidine Gluconate (Chlorhexidine 2% Cloth) Taper DAILY@04 TOP 02/26/17 04:00 02/22/18 03:59 03/09/17 04:00 Chlorhexidine Gluconate 3 pack 3 pack UNSCH PRN TOP HYGIENIC CARE 02/26/17 01:30 Propofol 100 ml @ 0 mls/hr TITRATE IV 02/26/17 01:30 Hold 03/05/17 23:07 Fentanyl Citrate 250 ml @ 0 mls/hr TITRATE IV 02/26/17 03:00 03/09/17 04:20 Midazolam HCl 100 ml @ 0 mls/hr TITRATE IV 02/26/17 03:00 03/09/17 04:20 Thiamine HCl/ Sodium Chloride (Thiamine Inj/NS Inj) 101 ml @ 101 mls/hr DAILY IV 03/01/17 09:00 03/10/17 09:00 Folic Acid (Folate) 1 mg DAILY PO 03/01/17 09:00 03/10/17 09:00 Multivitamins (Theragran) 1 tab DAILY PO 03/01/17 09:00 03/10/17 09:00 Sennosides (Senna Liq) 8.8 mg BID PO 02/28/17 21:00 03/09/17 20:28 Lactic Acid (Lac-Hydrin 12% Lotion) 1 applic BID TOPICAL 02/28/17 21:00 03/10/17 09:00 Protein (Beneprotein Powder) 1 pack TID G-TUBE 02/28/17 13:00 03/10/17 09:00 Artificial Tears (Tears Naturale Opth Soln) 1 drop Q8HR EACH EYE 02/28/17 14:00 03/10/17 04:29 Glycerin 2 gm 2 gm BID PRN RECTAL CONSTIPATION 03/01/17 08:30 Heparin Sodium/ Sodium Chloride (Heparin-NS/Pf Inj) 500 ml @ 0 mls/hr Q0M IART 03/02/17 14:07 Dextrose (D50w (Vial) Inj) 25 ml UNSCH PRN IV PUSH HYPOGLYCEMIA-SEE COMMENTS 03/03/17 08:45 Glucagon (Glucagon Inj) 1 mg UNSCH PRN OTHER HYPOGLYCEMIA-SEE COMMENTS 03/03/17 08:45 Insulin Human Regular 1 1 Q4HR SQ 03/03/17 12:00 03/10/17 08:00 Piperacillin Sod/ Tazobactam Sod 50 ml @ 100 mls/hr Q6H IV 03/04/17 12:30 03/10/17 04:30 Sodium Chloride (NS 1000 ml Inj) 1,000 ml @ 0 mls/hr Q0M PRN IV For Prime & Rinse Back 03/05/17 08:26 03/07/17 08:54 Heparin Sodium (Porcine) 8000 units 8,000 units UNSCH PRN IVF WITH DIALYSIS 03/05/17 08:30 Sodium Chloride 1,000 ml @ 200 mls/hr Q5H PRN IV WITH DIALYSIS 03/05/17 08:26 Sodium Chloride (NS 1000 ml Inj) 1,000 ml @ 0 mls/hr Q0M PRN IV WITH DIALYSIS 03/05/17 08:26 Mannitol (Mannitol Inj) 12.5 gm UNSCH PRN IV WITH DIALYSIS 03/05/17 08:30 03/10/17 11:00 Albumin Human (Albumin 25% Inj) 25 gm UNSCH PRN IV WITH DIALYSIS 03/05/17 08:30 03/09/17 16:42 Sodium Chloride (NS Flush) 5 ml UNSCH PRN IV FLUSH WITH DIALYSIS 03/05/17 08:30 Heparin Sodium (Porcine) (Heparin Inj) UNSCH PRN .XX WITH DIALYSIS 03/05/17 08:30 03/09/17 18:33 Gentamicin Sulfate (Gentamicin (Dialysis) Inj) 20 mg UNSCH PRN IV WITH DIALYSIS 03/05/17 08:30 03/09/17 18:33 Ondansetron HCl (Zofran Inj) 4 mg UNSCH PRN IV WITH DIALYSIS 03/05/17 08:30 Acetaminophen (Tylenol) 650 mg UNSCH PRN PO for headach, pain, temp > 101F 03/05/17 08:30 Diphenhydramine HCl (Benadryl) 25 mg UNSCH PRN PO for hives/itching/anaphylaxis 03/05/17 08:30 Nitroglycerin (Nitrostat Sl) 0.4 mg UNSCH PRN SL CHEST PAIN 03/05/17 08:30 Clonidine (Catapres) 0.1 mg UNSCH PRN PO for BP > 180/100 X 2 readings 03/05/17 08:30 Gelatin (Gelfoam 12 Mm/7 Mm Top) 1 foam UNSCH PRN TOP SEE LABEL COMMENTS 03/05/17 08:30 Metoclopramide HCl 5 mg 5 mg Q8HR IV PUSH 03/06/17 08:30 03/10/17 05:13 Levofloxacin/ Dextrose (Levaquin 500 Mg Premix Inj) 100 ml @ 100 mls/hr Q48H IV 03/08/17 16:00 03/08/17 16:13 Hydralazine HCl (Apresoline Inj) 5 mg Q4H IV PUSH 03/08/17 13:15 03/10/17 09:15 Sodium Chloride (NS Flush) DAILY IVF 03/09/17 09:00 03/10/17 09:00 Sodium Chloride (NS Flush) UNSCH PRN IVF SEE PROTOCOL 03/08/17 12:15 Amiodarone HCl (Cordarone) 400 mg Q12HR PO 03/08/17 21:00 03/10/17 09:00 Calcium Acetate (Phoslo) 2,001 mg TID PO 03/09/17 13:00 03/10/17 09:00 Methylprednisolone Sodium Succinate 20 mg 20 mg DAILY IV PUSH 03/10/17 09:00 03/10/17 09:00 Trimethoprim/ Sulfamethoxazole/ Dextrose (Bactrim Inj/D5W 1000 ml Inj) 1,050 ml @ 350 mls/hr UNSCH PRN IV PRE DIALYSIS ON DIALYIS DAYS 03/11/17 09:00 Insulin Detemir (Levemir Inj) 45 units Q12HR SQ 03/10/17 09:00 03/10/17 09:00 SOCIAL HISTORY Unable to obtain. History reported on the records indicate daily alcohol use. No tobacco. No illicit drugs. FAMILY HISTORY Unable to obtain. REVIEW OF SYSTEMS Unable to obtain. OBJECTIVE: Vital Signs Date Time Temp Pulse Resp B/P Pulse Ox O2 Delivery O2 Flow Rate FiO2 03/10/17 11:46 98 70 03/10/17 10:35 90 100 03/10/17 10:00 80 03/10/17 08:00 50 03/10/17 08:00 67 03/10/17 08:00 98.1 67 15 88/51 98 03/10/17 07:57 98 50 03/10/17 06:00 71 03/10/17 04:00 97.3 81 18 115/58 98 03/10/17 04:00 81 03/10/17 04:00 50 03/10/17 03:48 100 50 03/10/17 02:00 81 03/10/17 01:00 97 55 03/10/17 00:00 96.5 83 20 107/56 97 03/10/17 00:00 55 03/10/17 00:00 83 03/09/17 22:02 98 55 03/09/17 22:00 95 03/09/17 20:00 55 03/09/17 20:00 86 03/09/17 20:00 97.5 86 18 109/55 96 03/09/17 19:21 96 55 03/09/17 18:00 85 03/09/17 16:29 97 55 03/09/17 16:00 93 03/09/17 16:00 98.8 93 22 90/55 97 03/09/17 16:00 60 03/09/17 03/09/17 03/10/17 15:00 23:00 07:00 Intake Total 680 ml 1519 ml 716 ml Output Total 240 ml 2400 ml 0 ml Balance 440 ml -881 ml 716 ml Intake Oral 0 ml 0 ml IV Total 295 ml 602 ml 330 ml Tube Feeding 385 ml 857 ml 386 ml Other 60 ml Output Urine Total 240 ml 400 ml 0 ml Hemodialysis 2000 ml # Bowel Movements 1 1 2 Laboratory Tests Test 03/08/17 03/09/17 03/10/17 03/10/17 14:30 05:00 03:15 05:25 Hemoglobin 8.8 GM/DL 9.9 GM/DL 8.2 GM/DL 8.1 GM/DL Hematocrit 26.1 % 30.3 % 23.4 % 23.4 % White Blood Count 15.0 TH/MM3 10.6 TH/MM3 10.1 TH/MM3 Red Blood Count 3.43 MIL/MM3 2.65 MIL/MM3 2.64 MIL/MM3 Mean Corpuscular Volume 88.3 FL 88.0 FL 88.9 FL Mean Corpuscular Hemoglobin 28.9 PG 30.9 PG 30.6 PG Mean Corpuscular Hemoglobin 32.8 % 35.1 % 34.5 % Concent Red Cell Distribution Width 15.1 % 14.7 % 14.9 % Platelet Count 142 TH/MM3 121 TH/MM3 121 TH/MM3 Mean Platelet Volume 9.8 FL 9.9 FL 9.7 FL Neutrophils (%) (Auto) 95.6 % 94.0 % 94.2 % Lymphocytes (%) (Auto) 1.3 % 1.7 % 1.6 % Monocytes (%) (Auto) 2.8 % 4.1 % 4.0 % Eosinophils (%) (Auto) 0.0 % 0.0 % 0.0 % Basophils (%) (Auto) 0.3 % 0.2 % 0.2 % Neutrophils # (Auto) 14.3 TH/MM3 10.0 TH/MM3 9.5 TH/MM3 Lymphocytes # (Auto) 0.2 TH/MM3 0.2 TH/MM3 0.2 TH/MM3 Monocytes # (Auto) 0.4 TH/MM3 0.4 TH/MM3 0.4 TH/MM3 Eosinophils # (Auto) 0.0 TH/MM3 0.0 TH/MM3 0.0 TH/MM3 Basophils # (Auto) 0.0 TH/MM3 0.0 TH/MM3 0.0 TH/MM3 CBC Comment DIFF FINAL DIFF FINAL DIFF FINAL Differential Comment Laboratory Tests Test 03/09/17 03/10/17 03/10/17 05:00 03:15 05:25 Sodium Level 137 MEQ/L 139 MEQ/L 139 MEQ/L Potassium Level 5.3 MEQ/L 5.1 MEQ/L 5.4 MEQ/L Chloride Level 95 MEQ/L 98 MEQ/L 98 MEQ/L Carbon Dioxide Level 26.6 MEQ/L 29.1 MEQ/L 28.1 MEQ/L Anion Gap 15 MEQ/L 12 MEQ/L 13 MEQ/L Blood Urea Nitrogen 149 MG/DL 122 MG/DL 129 MG/DL Creatinine 6.31 MG/DL 5.29 MG/DL 5.56 MG/DL Estimat Glomerular Filtration 9 ML/MIN 11 ML/MIN 10 ML/MIN Rate Random Glucose 243 MG/DL 205 MG/DL 226 MG/DL Calcium Level 9.0 MG/DL 8.1 MG/DL 8.3 MG/DL Phosphorus Level 9.3 MG/DL 8.6 MG/DL 7.9 MG/DL Magnesium Level 3.2 MG/DL 2.9 MG/DL 2.9 MG/DL Albumin 3.3 GM/DL 3.3 GM/DL Total Bilirubin 0.6 MG/DL Aspartate Amino Transf 11 U/L (AST/SGOT) Alanine Aminotransferase 29 U/L (ALT/SGPT) Alkaline Phosphatase 45 U/L Total Protein 5.8 GM/DL Microbiology Date/Time Procedure Status Source Growth 03/07/17 17:20 Gram Stain - Final Complete Bronchial Washings Bronchial 03/07/17 17:20 Bronchial Culture - Final Complete Bronchial Washings Bronchial LIGHT GROWTH NORMAL RESPIRATORY JEN 03/07/17 17:20 Acid Fast Stain - Final Resulted Bronchial Washings Bronchial NO ACID FAST BACILLI SEEN 03/07/17 17:20 Mycobacterial Culture Resulted Bronchial Washings Bronchial Pending 03/07/17 17:20 Fungal Smear - Final Resulted Bronchial Washings Bronchial NO FUNGAL ELEMENTS SEEN. 03/07/17 17:20 Fungal Culture - Preliminary Resulted Yeast Species IMAGING: Abdomen/Pelvis CT 03/10/17 0000 Signed Impressions: Service Date/Time: Friday, March 10, 2017 10:20 - CONCLUSION: 1. There is no retroperitoneal hematoma. 2. Bilateral pleural effusions right greater than left. 3. A nonspecific, nonobstructed bowel gas pattern most consistent with a mild ileus and/or gastroenteritis. Raul Craig MD Chest X-Ray 03/09/17 1600 Signed Impressions: Service Date/Time: Thursday, March 09, 2017 19:16 - CONCLUSION: Bilateral pulmonary air space disease again seen. Evaristo Massey MD Abdomen X-Ray 03/07/17 0000 Signed Impressions: Service Date/Time: Tuesday, March 07, 2017 13:26 - CONCLUSION: No acute disease. Bg Faust MD Thoracentesis 03/03/17 0000 Signed Impressions: Service Date/Time: Friday, March 03, 2017 14:09 - CONCLUSION: Uncomplicated CT-guided right thoracentesis. Cash Cowan MD Chest CT 03/02/17 0000 Signed Impressions: Service Date/Time: Thursday, March 02, 2017 11:42 - CONCLUSION: Large bilateral pleural effusions and bibasilar consolidation and/or compressive collapse not present on the study from 2014. Travis Nguyen MD Lower Extremity Ultrasound 02/27/17 0000 Signed Impressions: Service Date/Time: Monday, February 27, 2017 09:13 - CONCLUSION: Normal examination. Evaristo Massey MD Head CT 02/24/17 0000 Signed Impressions: Service Date/Time: Friday, February 24, 2017 18:59 - CONCLUSION: 1. No acute hemorrhage or mass effect. 2. Acute sinusitis in the left maxillary sinus. Raul Craig MD Cervical Spine MRI 02/24/17 0000 Signed Impressions: Service Date/Time: Friday, February 24, 2017 22:46 - CONCLUSION: 1. Small central protrusion at C4-5 without canal stenosis. 2. Small central protrusion at C3-4 with minimal extruded component. 3. Mild broad-based disc bulges at C5- 6 and C6-7 levels without canal stenosis. Neto Duenas MD Cervical Spine CT 02/24/17 0000 Signed Impressions: Service Date/Time: Friday, February 24, 2017 19:02 - CONCLUSION: 1. Moderate narrowing of left neural foramina at the C3-4 level secondary to hypertrophic change involving the facet joint. 2. Mild degenerative change at the C5-6 and C6-7 levels. 3. Mild disc osteophyte complex at C5-6 with mild narrowing of the neural foramina. Raul Craig MD Brain MRI 02/24/17 0000 Signed Impressions: Service Date/Time: Friday, February 24, 2017 22:46 - CONCLUSION: 1. No acute intracranial abnormality. 2. Left maxillary sinus disease. 3. No acute infarction. Neto Duenas MD PHYSICAL EXAMINATION GENERAL: On the ventilator. Unresponsive. HEENT: Head is atraumatic. Extraocular movements cannot be assessed. Oropharynx intubated. NECK: Supple. No mass or swelling. LUNGS: Coarse rhonchi bilateral. HEART: Regular rate and rhythm without audible murmurs or rubs or gallops. ABDOMEN: Bowel sounds present, markedly distended. Soft. RECTAL: Not performed. EXTREMITIES: No clubbing or cyanosis. 1-2+ edema of the upper extremities. No edema at the lower extremities. SKIN: No rash. Ecchymosis at the upper extremities. NEUROLOGIC: Unable to assess. IMPRESSION 1. Bilateral pneumonia. Positive sputum culture with Pseudomonas and yeast growing on the bronch. washing. 2. Acute respiratory failure. 3. Acute renal failure. 4. Leukocytosis. 5. Myocardial infarction in patient with low ejection fraction and also noted to have pulmonary hypertension. RECOMMENDATIONS 1. Continue Levaquin. 2. Continue piperacillin / Tazobactam. 3. Bactrim intravenous for Stenotrophomonas. To be given prior to dialysis. The Bactrim will be adjusted for renal function. 4. Monitor clinical response. Cleveland Ford MD Mar 10, 2017 12:10 Magnesium Level 3.2 MG/DL 2.9 MG/DL 2.9 MG/DL Albumin 3.3 GM/DL 3.3 GM/DL Total Bilirubin 0.6 MG/DL Aspartate Amino Transf 11 U/L (AST/SGOT) Alanine Aminotransferase 29 U/L (ALT/SGPT) Alkaline Phosphatase 45 U/L Total Protein 5.8 GM/DL Microbiology Date/Time Procedure Status Source Growth 03/07/17 17:20 Gram Stain - Final Complete Bronchial Washings Bronchial 03/07/17 17:20 Bronchial Culture - Final Complete Bronchial Washings Bronchial LIGHT GROWTH NORMAL RESPIRATORY JEN 03/07/17 17:20 Acid Fast Stain - Final Resulted Bronchial Washings Bronchial NO ACID FAST BACILLI SEEN 03/07/17 17:20 Mycobacterial Culture Resulted Bronchial Washings Bronchial Pending 03/07/17 17:20 Fungal Smear - Final Resulted Bronchial Washings Bronchial NO FUNGAL ELEMENTS SEEN. 03/07/17 17:20 Fungal Culture - Preliminary Resulted Yeast Species IMAGING: Abdomen/Pelvis CT 03/10/17 0000 Signed Impressions: Service Date/Time: Friday, March 10, 2017 10:20 - CONCLUSION: 1. There is no retroperitoneal hematoma. 2. Bilateral pleural effusions right greater than left. 3. A nonspecific, nonobstructed bowel gas pattern most consistent with a mild ileus and/or gastroenteritis. Raul Craig MD Chest X-Ray 03/09/17 1600 Signed Impressions: Service Date/Time: Thursday, March 09, 2017 19:16 - CONCLUSION: Bilateral pulmonary air space disease again seen. Evaristo Massey MD Abdomen X-Ray 03/07/17 0000 Signed Impressions: Service Date/Time: Tuesday, March 07, 2017 13:26 - CONCLUSION: No acute disease. Bg Faust MD Thoracentesis 03/03/17 0000 Signed Impressions: Service Date/Time: Friday, March 03, 2017 14:09 - CONCLUSION: Uncomplicated CT-guided right thoracentesis. Cash Cowan MD Chest CT 03/02/17 0000 Signed Impressions: Service Date/Time: Thursday, March 02, 2017 11:42 - CONCLUSION: Large bilateral pleural effusions and bibasilar consolidation and/or compressive collapse not present on the study from 2014. Travis Nguyen MD Lower Extremity Ultrasound 02/27/17 0000 Signed Impressions: Service Date/Time: Monday, February 27, 2017 09:13 - CONCLUSION: Normal examination. Evaristo Massey MD Head CT 02/24/17 0000 Signed Impressions: Service Date/Time: Friday, February 24, 2017 18:59 - CONCLUSION: 1. No acute hemorrhage or mass effect. 2. Acute sinusitis in the left maxillary sinus. Raul Craig MD Cervical Spine MRI 02/24/17 0000 Signed Impressions: Service Date/Time: Friday, February 24, 2017 22:46 - CONCLUSION: 1. Small central protrusion at C4-5 without canal stenosis. 2. Small central protrusion at C3-4 with minimal extruded component. 3. Mild broad-based disc bulges at C5- 6 and C6-7 levels without canal stenosis. Neto Duenas MD Cervical Spine CT 02/24/17 0000 Signed Impressions: Service Date/Time: Friday, February 24, 2017 19:02 - CONCLUSION: 1. Moderate narrowing of left neural foramina at the C3-4 level secondary to hypertrophic change involving the facet joint. 2. Mild degenerative change at the C5-6 and C6-7 levels. 3. Mild disc osteophyte complex at C5-6 with mild narrowing of the neural foramina. Raul Craig MD Brain MRI 02/24/17 0000 Signed Impressions: Service Date/Time: Friday, February 24, 2017 22:46 - CONCLUSION: 1. No acute intracranial abnormality. 2. Left maxillary sinus disease. 3. No acute infarction. Neto Duenas MD PHYSICAL EXAMINATION GENERAL: On the ventilator. Unresponsive. HEENT: Head is atraumatic. Extraocular movements cannot be assessed. Oropharynx intubated. NECK: Supple. No mass or swelling. LUNGS: Coarse rhonchi bilateral. HEART: Regular rate and rhythm without audible murmurs or rubs or gallops. ABDOMEN: Bowel sounds present, markedly distended. Soft. RECTAL: Not performed. EXTREMITIES: No clubbing or cyanosis. 1-2+ edema of the upper extremities. No edema at the lower extremities. SKIN: No rash. Ecchymosis at the upper extremities. NEUROLOGIC: Unable to assess. IMPRESSION 1. Bilateral pneumonia. Positive sputum culture with Pseudomonas and yeast growing on the bronch. washing. (speech). 2. Acute respiratory failure. 3. Acute renal failure. 4. Leukocytosis. 5. Myocardial infarction in patient with low ejection fraction and also noted to have pulmonary hypertension. RECOMMENDATIONS 1. Continue Levaquin. 2. Continue piperacillin / Tazobactam. 3. Bactrim intravenous for Stenotrophomonas. To be given prior to dialysis. The Bactrim will be adjusted for renal function. 4. Monitor clinical response. The patient is very clinically ill with multiorgan failure. However, he is unlikely to improve with the Stenotrophomonas pneumonia without adequate treatment and it shows intermediate sensitivity to Levaquin and therefore Bactrim is recommended. I will also ask the lab to do sensitivities to a couple of (Other)antibiotics as well. Cleveland Ford MD Mar 10, 2017 12:10
--- NOTE | 2017-03-10 12:16 | HHI.CCPN ---
Subjective Remarks/Hospital Course Per nocturnal hospital monitor 02/26/17 Responded to [facility] overhead. Upon arrival to F pod discovered that patient was awake and normotensive, with sinus tachycardia in the 150s in severe respiratory distress. He had not lost a pulse but [facility] had been called to facilitate rapid evaluation and stabilization. 76-year-old male with past history of obesity, COPD, obstructive sleep apnea on CPAP, CHF, peripheral neuropathy, hypertension, diabetes, hyperlipidemia, obesity who receives medical care at the [facility]. He presented to [facility] emergency department 02/25/17 with falls and difficulty with balance. He also reported that he was having shortness of breath and cough for several days. Was not febrile in hospital. On the day of admission he had some chest pain across his chest. Troponins negative. He was treated for pneumonia with Rocephin and azithromycin. He was placed on steroids Solu-Medrol 60 mg IV every 6 hours. Received Lasix at about 6 PM on due to concern for volume overload. Echo had poor images but systolic function appeared reduced. Tonight he developed acutely worsening shortness of breath and Dr. Galicia presented to the emergency Department to evaluate him where he was found to be tachypneic and wheezing. He was given a neb and preparations were being made to place him on BiPAP. He was becoming less responsive and was looking upward when I arrived and respiratory was placing on Bipap. He was in extremis and it was felt he would need emergent intubation prior to transfer to ICU. He denied chest pain. He was preoxygenated on Bipap, did seem to become more alert and nodded that he agreed with proceeding with intubation. He was intubated in F pod and then transferred to [facility]. Upon arrival to [facility] he was in atrial fibrillation in the 130s. SBP was 90/50 then 64/40. Central line was placed and he converted to sinus tachycadia in 101-130s. Subsequently he was normotensive with MAP 71. He was also sedated with propofol during the hypotension, improved after transition to fentanyl drip. 02/27: PA catheter placed yesterday. PA catheter readings are more consistent distributive/septic shock with high cardiac output with low SVR. CO 10-11. CI 2.8 SVRI [id number]. D/W Dr Butts. Will hold off Flolan challenge at this time for high PA pressure- mean 59-60. After weaning pressors, PA mean pressure is about 40. Patient's hemodynamics have improved, vasopressin is off now, Levophed is at 4 mics per minute. Give Bumex 2 mg 1 on Bumex drip at 2 mg per hour per Dr. Miner 02/28: Afebrile. Arousable on the vent and moves 4 extremities spontaneously but doesn't follow commands. No bowel movement since admission. Currently nothing by mouth. Remains on low-dose vasopressors including vasopressin and Levophed 03/01: [place] Luisa catheter removed yesterday. Adequate urine output on Bumex drip at 1 mg an hour. Afebrile. Currently replaced potassium. 03/02: Afebrile. Bumex drip has been discontinued. Currently replaced potassium. Positive BM overnight. We'll attempt spontaneous breathing trials today. 03/03: Afebrile. Adequate urine output. Positive BM. Tolerating tube feeds. Heparin drip for thoracentesis. Eyes are open but not following commands. Continues on Versed and fentanyl drips. 03/04: Afebrile. Status post thoracentesis yesterday -1150 years transudative. Positive BM 1. Tolerating tube feeding. Hypertensive. Hydralazine added per cardiology. 03/05: Patient remains intubated sedated. Bedside ultrasound shows Moderate left pleural effusion. Agitated on lightening sedation 03/06: Remains intubated sedated. Overnight FiO2 had to increase to 100 % due to desaturation, now reduced to 60% again. Chest x-ray shows bilateral pulmonary edema. Nephrology contacted- hemodialysis today with attempt at 4L removal. Status post bedside thoracentesis (Left side) yesterday with 1L transudative fluid removal 03/07: Tmax 99.2. Currently 99. Positive bloody secretions from ET tube. Heparin drip has been off since yesterday. Desaturated overnight FiO2 currently down to 40%. PEEP set at.8. Resting in bed in no acute distress. Eyes open and moves all 4 extremity spontaneously but not following commands. 03/08: Afebrile currently. Status post bronchoscopy yesterday with copious amounts of hemorrhagic secretions without obvious source. Transfuse 3 units. Receives overnight. Again no obvious source of bleeding. Tolerating tube feeding. Positive BM. 03/09: Tmax 99. Positive BM. Noted decreased blood pressure overnight. Increased PEEP: Concomitant cause. Chest x-ray today pending. ARDS type picture yesterday. Plan for hemodialysis today. Subjective 03/10: PEEP down to 10. From 15. Hemoglobin dropped from 10-8 overnight. No obvious source of bleeding. CT abdomen/cells reveal no retroperitoneal hematoma. He is to have bloody secretions from ET tube. Heparin drip as been off for several days. GI will be consulted. Hemoccult pending. Objective Vital Signs Date Time Temp Pulse Resp B/P Pulse Ox O2 Delivery O2 Flow Rate FiO2 03/10/17 11:46 98 70 03/10/17 10:00 80 03/10/17 08:00 98.1 15 88/51 Intake and Output 03/09/17 03/09/17 03/10/17 08:00 16:00 00:00 Intake Total 459 ml 680 ml 1519 ml Output Total 150 ml 240 ml 2400 ml Balance 309 ml 440 ml -881 ml Result Diagram: 03/10/17 0525 03/10/17 0525 Other Results Microbiology Date/Time Procedure Status Source Growth 03/07/17 17:20 Gram Stain - Final Complete Bronchial Washings Bronchial 03/07/17 17:20 Bronchial Culture - Final Complete Bronchial Washings Bronchial LIGHT GROWTH NORMAL RESPIRATORY JEN 03/07/17 17:20 Fungal Smear - Final Resulted Bronchial Washings Bronchial NO FUNGAL ELEMENTS SEEN. 03/07/17 17:20 Fungal Culture - Preliminary Resulted Yeast Species 03/07/17 17:20 Acid Fast Stain - Final Resulted Bronchial Washings Bronchial NO ACID FAST BACILLI SEEN 03/07/17 17:20 Mycobacterial Culture Resulted Bronchial Washings Bronchial Pending Imaging Last Impressions Abdomen/Pelvis CT 03/10/17 0000 Signed Impressions: Service Date/Time: Friday, March 10, 2017 10:20 - CONCLUSION: 1. There is no retroperitoneal hematoma. 2. Bilateral pleural effusions right greater than left. 3. A nonspecific, nonobstructed bowel gas pattern most consistent with a mild ileus and/or gastroenteritis. Raul rCaig MD Chest X-Ray 03/09/17 1600 Signed Impressions: Service Date/Time: Thursday, March 09, 2017 19:16 - CONCLUSION: Bilateral pulmonary air space disease again seen. Evaristo Massey MD Abdomen X-Ray 4/22/17 0000 Signed Impressions: Service Date/Time: Tuesday, March 07, 2017 13:26 - CONCLUSION: No acute disease. Bg Faust MD Thoracentesis 03/03/17 0000 Signed Impressions: Service Date/Time: Friday, March 03, 2017 14:09 - CONCLUSION: Uncomplicated CT-guided right thoracentesis. Cash Cowan MD Chest CT 03/02/17 0000 Signed Impressions: Service Date/Time: Thursday, March 02, 2017 11:42 - CONCLUSION: Large bilateral pleural effusions and bibasilar consolidation and/or compressive collapse not present on the study from 2014. Tarvis Nguyen MD Lower Extremity Ultrasound 02/27/17 0000 Signed Impressions: Service Date/Time: Monday, February 27, 2017 09:13 - CONCLUSION: Normal examination. Evaristo Massey MD Head CT 02/24/17 0000 Signed Impressions: Service Date/Time: Friday, February 24, 2017 18:59 - CONCLUSION: 1. No acute hemorrhage or mass effect. 2. Acute sinusitis in the left maxillary sinus. Raul Craig MD Cervical Spine MRI 02/24/17 0000 Signed Impressions: Service Date/Time: Friday, February 24, 2017 22:46 - CONCLUSION: 1. Small central protrusion at C4-5 without canal stenosis. 2. Small central protrusion at C3-4 with minimal extruded component. 3. Mild broad-based disc bulges at C5- 6 and C6-7 levels without canal stenosis. Neto Duenas MD Cervical Spine CT 02/24/17 0000 Signed Impressions: Service Date/Time: Friday, February 24, 2017 19:02 - CONCLUSION: 1. Moderate narrowing of left neural foramina at the C3-4 level secondary to hypertrophic change involving the facet joint. 2. Mild degenerative change at the C5-6 and C6-7 levels. 3. Mild disc osteophyte complex at C5-6 with mild narrowing of the neural foramina. Raul Craig MD Brain MRI 02/24/17 0000 Signed Impressions: Service Date/Time: Friday, February 24, 2017 22:46 - CONCLUSION: 1. No acute intracranial abnormality. 2. Left maxillary sinus disease. 3. No acute infarction. Neto Duenas MD Objective Remarks GENERAL: 76-year-old male, critically ill currently orotracheally intubated with bloody secretions from ET tube SKIN: Warm and dry. No rash HEAD: Atraumatic. Normocephalic. EYES: Pupils equal and round 3-4 mm and reactive bilaterally. No scleral icterus. No injection or drainage. ENT: Orotracheally intubated NECK: Trachea midline. Right Subclavian, LIJ hemodialysis catheter clean dry and intact CARDIOVASCULAR: RRR. S1, S2. No S4. Faint 1/6 systolic murmur right upper sternal border RESPIRATORY: Few crackles appreciated bilaterally. Left greater than right Symmetrical excursion. GASTROINTESTINAL: Abdomen obese, protuberant, small umbilical reducible hernia. Bowel sounds are hypoactive. MUSCULOSKELETAL: Extremities with much improved lower extremity edema . Chronic venous stasis/lymphedema NEUROLOGICAL: Eyes are open. Positive corneal reflex. Positive gag. Moves all 4 extremity spontaneously but not following commands. Withdraws to pain upper and lower extremities bilaterally. A/P Assessment and Plan NEURO/PSYCH: Acute encephalopathy - secondary to hypercapnia and hypoxemia Peripheral neuropathy Allergic rhinitis Currently on propofol at 10 mcg/kg/m and Fentanyl at 50 mg per hour for sedation /analgesia while intubated. Goal of RASS -2. Daily sedation vacation MRI brain 02/24 - no acute abnormality MRI C-spinesmall central protrusion at C3/C4 with mild extruded central spinal cord C4-C5 without canal stenosis with mild disc bulging C5/6 and C6/7 EEG 02/27 revealed moderate to severe encephalopathy. No epileptiform activity Questionable history of EtOH use/abuse. We'll continue on thiamine/folate and multivitamin today Neurontin level2.3. Previously on 600 mg 3 times a day for shingles pain management. Currently on hold Holding Flonase twice a day/Zyrtec 5 mill grams daily. Resume as clinically indicated RESP: Acute hypoxemic and hypercapnic respiratory failure Acute COPD exacerbation Bilateral large pl effusions History of asthma? Acute on chronic pulmonary artery hypertension Objective sleep apnea - noncompliant with CPAP History of tobacco abuse [facility] /1.12/31/54. Ventilator bundle DuoNeb every 4 hours with albuterol every 2 hours when necessary Continue Pulmicort 0.5/2 one inhalation twice a day Solumedrol 20 milligrams every q12 to be weaned over the next several days s/p thoracentesis left-sided 03/05 with 1L removed -transudate Right thoracentesis 03/03 likely transudative. -1150 Home medication regimen is Symbicort 160/4.5 to press twice a day, Spiriva 18 inhalation daily and Ventolin 4 times a day with duo nebs aerosols for breakthrough every 4 hours when necessary According to records, noncompliant with CPAP for SEBASTIAN Airway edema noted particularly large arytenoid edema noted on intubation 02/26 with anterior airway. Intubated with Glidescope and 7.5 ETT. Bronchoscopy 03/07 revealed no obvious source of bleeding. Bloody secretions throughout. See note Cardiovascular: Pulmonary edema Shock, distributive/septic resolved Acute on chronic systolic heart failure EF 25-30% Moderate Moderate to severe TR NSTEMI Paroxysmal atrial fibrillation/flutter History of Hypertension Hyperlipidemia History of coronary artery disease Currently off all vaso pressors. Additional fl removal today with HD (target 3L) PAC placed 02/26-initially distributive shock (CI 2.8, SVRI 1300). Cardiac index at 2.1. Cardiac output 5.2 and SVR 1250 this could be possibly be vaso constrictive/late sepsis versus effects of diuresis It is unclear whether pulmonary hypertension is secondary to left heart failure versus SEBASTIAN versus COPD Bench Hand Machine was unable to do transpulmonary gradient secondary to unable to wedge balloon [place] Luisa catheter removed 02/[address] Butts IV heparin for NSTEMI and A Fib rate discontinued secondary to hemoptysis. Bumex 2 mg IV 1 02/27 and initiated Bumex infusion currently discontinued as of 03/03 Continue aspirin 81 mg daily Switched amiodarone drip secondary to 7 beat of V. tach at 0953 03/07 patient switched back to 400 twice a day 03/08 Troponin peaked at 27. Left heart catheterization when clinically stable Continue atorvastatin 80 mg daily at bedtime for dyslipidemia Unable to use beta charles secondary due to hypotension. On Lopressor 200 mg daily at home. Other blood pressures include lisinopril 40 mg daily and HCTZ 12.5 mg daily. On hold due to acute kidney injury Started hydralazine 5 milligrams IV every [address] Butts Echo 02/27: - Systolic function was severely reduced 25% to 30%. Diffuse hypokinesis. -Aortic valve: moderate stenosis. Tricuspid valve: Moderate/severe regurgitation. SUZAN 70 mmHg Echo 03/06 -- Left ventricle: The cavity size was mildly dilated. Wall thickness was increased in a pattern of mild LVH. There was concentric hypertrophy. Systolic function was severely reduced. The estimated ejection fraction was in the range of 20% to 25%. Diffuse hypokinesis. - Aortic valve: Valve mobility was mildly restricted. There was mild to moderate stenosis. Valve area: 1.37cm^2 (VTI). Valve area: 1.13cm^2 (Vmax). - Mitral valve: Mild regurgitation. - Left atrium: The atrium was mildly dilated. - Right ventricle: The cavity size was mildly dilated. - Atrial septum: No defect or patent foramen ovale was identified. - Tricuspid valve: Mild regurgitation. - Pulmonary arteries: PA peak pressure: 69mm Hg (S). Impressions: No colorflow noted across the ventricular septum concerning for a VSD. No papillary muscle ruptures noted. GI: Constipation Glucerna 1.5 goal 55 cc an hour Protonix 40 mg IV daily Colace and Senokot twice a day for bowel regimen Having BM Start Reglan 5 every 8 for high residual KUB 03/07 revealed nonspecific bowel gas pattern. : BPH Holding doxazosin 8 mg daily light of hypotension Maintain Barrios for accurate I's and O's in a critically ill patient FEN/RENAL: Acute kidney injury/ATN Monitor intake and output. Monitor electrolytes Bumex discontinued HD started 03/05, 2L fluid removed. Hemodialysis is planned for today Urine output 275 past 24 hours ID: Acute community acquired pneumonia Stenotrophomonas Septic shock-resolved Continue Zosyn ->Levaquin started 03/06 Bactrim started 03/09 discontinued his Zithromax after 8 days. Microbiology: lood culture 2 setsno growth to date 02/25sputum - no growth 02/25urine Legionella and pneumococcal antigen negative 02/25influenza screen negative 02/26 - urine - no growth 02/26 - blood cultures 2 - no growth 03/06: sputum culture - stenotrophomonas 03/07 - bronchoscopy -East Consult infectious disease with resistance stenotrophomonas with renal failure HEME: Normocytic anemia Leukocytosis Thrombocytopenia No indication for transfusion of blood products at this time Heparin drip off secondary to bloody secretions. 3 units PRBCs 03/07. Unknown if from hemodilution versus renal failure however no active bleeding appreciated currently. Transfuse 1 units PRBCs today. Recheck hemogram after transfusion. GI consulted for anemia. Possible PEG tube placed. 03/10 CT/pelvis revealed possible early ileus. Right greater than left pleural effusion. No retroperitoneal hematoma. ENDO: Poorly controlled diabetes mellitus - hemoglobin A1c of 8.6 Levemir 55 units twice a day with sliding scale insulin 4/moderate regimen. 21 units sliding scale insulin past 24 hours At home on Lantus 35 units twice a day and Novulin R 15 units 3 times a day with meals MSK Chronic lymphedema Osteoporosis/osteoarthritis Lac-Hydrin twice a day for lower extremity lymphedema 02/27 venous Dopplers showed no DVT Hold Risedronate 35 mg mg weekly for osteoporosis PROPH: Protonix 40 mg IV daily for stress ulcer prophylaxis. Heparin drip has been held secondary to bloody secretions. We'll start subcutaneous ACCESS: Right subclavian central venous line placed 02/26-03/08 Right IJ Cordis/day #4 discontinued 03/02 LIJ Vascath placed 03/05/17 day #6 Right IJ CVL day #3 placed 03/08 Full code Critical Care: The total critical care time was 35 minutes. Time to perform other separately billable procedures was not included in the critical care time. I discussed with at bedside. Care plan discussed all questions answered -> .Noni Stokes. Palliative care consulted for goals of care today. Ramo Almaraz MD Mar 10, 2017 12:16
[2017-03-10] MEDS: MIDAZOLAM 100 MG/NS 100 ML DRIP Premix IV SCH ×2 (12:52→22:05)
[2017-03-10] MEDS: fentaNYL 2,500 MCG/NS 250 ML IV SCH (12:52)
[2017-03-10] MEDS: GENTAMICIN SULFATE (DIALYSIS USE ONLY) 20 MG/2 ML VIAL IV PRN (13:15)
[2017-03-10] MEDS: HEPARIN SODIUM - IV 10,000 UNITS/10 ML VIAL PRN (13:15)
[2017-03-10] MEDS: LEVOFLOXACIN 500 MG PREMIX INJ 100 ML IV SCH (15:09)
[2017-03-10 15:16] LABS: HEMATOCRIT 25.2 % (39.0-51.0); REVIEW FLAG FINAL
--- NOTE | 2017-03-10 15:44 | PD.CONS ---
HPI History of Present Illness This is a 76 year old male patient with a history of obesity, COPD, obstructive sleep apnea, congestive heart failure, peripheral neuropathy, hypertension, diabetes, hyperlipidemia who presented to the ER on 02/25/17 with frequent falls. He also endorsed some chest pain and his cardiac enzymes were negative. He was started on treatment for pneumonia with antibiotics, steroids, and nebulizer treatments. Later that night, he had worsening shortness of breath and he was found to be tachypneic and wheezing and subsequently was placed on BIPAP and was later intubated, placed on the mechanical ventilator, and transferred to the ICU. He remains in the ICU, being treated for acute encephalopathy, peripheral neuropathy, allergic rhinitis, acute hypoxemic and hypercapnic respiratory failure, acute community acquired pneumonia, acute COPD exacerbation, bilateral large pleural effusions, pulmonary hypertension, obstructive sleep apnea, pulmonary edema, acute on chronic systolic heart failure, moderate aortic stenosis, moderate to severe tricuspid regurgitation, acute renal failure, paroxysmal atrial fibrillation/flutter, chronic lymphedema , and poorly controlled diabetes. GI was consulted for EGD with possible need for PEG tube placement. On admission, he was noted to have an H/H 02/24/17 10.7/ 32.4. This has fluctuated some and on 03/07, this did drop from 9.0/27.5 to 6.8/ 19.9. Since this time, he has been mostly in the 8 range. He has received 4 units of blood during this hospitalization. The nurse reports that he has not had any obvious GI bleeding. He was having some bloody secretions from his endotracheal tube at one point, but nothing from the gastric tube and his stools have been light brown without any obvious blood. Palliative care has been consulted and they are planning to meet with the patient's family tomorrow morning around 10:30 to discuss goals of care. (Mary Kemp) PFSH Past Medical History Hypertension Diabetes Coronary artery disease CHF COPD Sleep apnea Chronic bilateral lower extremity lymphedema Obesity Peripheral neuropathy Hyperlipidemia Past Surgical History Right knee surgery Left wrist surgery Hemorrhoidectomy Fistular repair Tonsillectomy (Mary Kemp) Coded Allergies: Bupropion (Verified Allergy, Unknown, 02/24/17) Hydrocodone (Verified Allergy, Unknown, 02/24/17) Terazosin (Verified Allergy, Unknown, 02/24/17) Uncoded Allergies: ZYBAN (Allergy, Severe, 10/22/15) Medications Allergies Coded Allergies Type Severity Reaction Last Updated Verified Bupropion Allergy Unknown 02/24/17 Yes Hydrocodone Allergy Unknown 02/24/17 Yes Terazosin Allergy Unknown 02/24/17 Yes Uncoded Allergies Type Severity Reaction Last Updated Verified ZYBAN Allergy Severe 10/22/15 Active Scripts Medications Dose Route/Sig Days Date Category Dose Instructions Atorvastatin (Atorvastatin Calcium) 80 Mg Tab 80 Mg PO HS 02/25/17 Reported Aspirin EC (Aspirin) 81 Mg Tabdr 81 Mg PO HS 02/25/17 Reported Toprol XL (Metoprolol Succinate) 200 Mg Tab 200 Mg PO DAILY 02/25/17 Reported Lisinopril 40 Mg Tab 40 Mg PO DAILY 02/25/17 Reported Hydrochlorothiazide 12.5 Mg Tab 12.5 Mg PO DAILY 02/25/17 Reported Cetirizine (Cetirizine HCl) 5 Mg Tab 5 Mg PO DAILY 02/25/17 Reported Spiriva Handihaler (Tiotropium Inh) 18 Mcg Cap 18 Mcg INH HS 02/25/17 Reported 1 capsule = 18 mcg Ventolin Hfa 18 GM Inh (Albuterol Sulfate) 90 Mcg/Act Aer 2 Puff INH QID PRN 02/25/17 Reported Prevident 5000 Enamel Pro 1.1-5 % (Sodium Fluoride-Potassium Nitr) 1 Pst Pst 1 Applic DENTAL HS 02/25/17 Reported Lantus Inj (Insulin Glargine) 1,000 Unit/10 Ml Vial 35 Units SQ BID 02/25/[address] (Risedronate) 35 Mg Tab 35 Mg PO Q7D ON Sundays02/25/17 Reported Oyster Calcium/Vitamin D (Calcium Carbonate-Vitamin D) 250-125 Mg-Unit Tab 1 Tab PO DAILY 02/25/17 Reported Doxazosin (Doxazosin Mesylate) 8 Mg Tab 8 Mg PO HS 02/25/17 Reported Symbicort Inh (Budesonide/Formoterol Fumarate) 160-4.5 Mcg/Act Aero 2 Puff INH BID 02/25/17 Reported Novolog Inj (Insulin Aspart) 1,000 Unit/10 Ml Vial 15 Units SQ TID 02/25/17 Reported Albuterol Neb (Albuterol Sulfate) 2.5 Mg/3 Ml Neb 2.5 Mg NEB QID NEB PRN 02/25/17 Reported Gabapentin 600 Mg Tab 600 Mg PO TID 02/25/17 Reported Lac-Hydrin Five (Lactic Acid (Ammonium Lactate)) 5 % Lot 1 Applic TOPICAL BID 02/25/17 Reported Triderm Topical (Triamcinolone Topical) 0.1 % Cream 1 Applic TOPICAL BID 02/25/17 Reported Flonase Nasal [place] (Fluticasone Nasal [place]) 50 Mcg/Act [place] 2 Spr EACH NARE DAILY 02/25/17 Reported Family History Reports his father had arrhythmias. Reports mother had coronary artery disease Social History He used to smoke cigarettes, quit in 1999. According alcohol abuse or drug abuse (Mary Kemp) Review of Systems ROS Unable to obtain (Mary Kemp) GI Exam Vitals I&O Vital Signs Date Time Temp Pulse Resp B/P Pulse Ox O2 Delivery O2 Flow Rate FiO2 03/10/17 11:46 98 70 03/10/17 10:35 90 100 03/10/17 10:00 80 03/10/17 08:00 50 03/10/17 08:00 67 03/10/17 08:00 98.1 67 15 88/51 98 03/10/17 07:57 98 50 03/10/17 06:00 71 03/10/17 04:00 97.3 81 18 115/58 98 03/10/17 04:00 81 03/10/17 04:00 50 03/10/17 03:48 100 50 03/10/17 02:00 81 03/10/17 01:00 97 55 03/10/17 00:00 96.5 83 20 107/56 97 03/10/17 00:00 55 03/10/17 00:00 83 03/09/17 22:02 98 55 03/09/17 22:00 95 03/09/17 20:00 55 03/09/17 20:00 86 03/09/17 20:00 97.5 86 18 109/55 96 03/09/17 19:21 96 55 03/09/17 18:00 85 03/09/17 16:29 97 55 03/09/17 16:00 93 03/09/17 16:00 98.8 93 22 90/55 97 03/09/17 16:00 60 I/O 03/09/17 03/09/17 03/09/17 03/10/17 03/10/17 03/10/17 07:00 15:00 23:00 07:00 15:00 23:00 Intake Total 459 ml 680 ml 1519 ml 716 ml Output Total 150 ml 240 ml 2400 ml 0 ml Balance 309 ml 440 ml -881 ml 716 ml Intake Oral 0 ml 0 ml 0 ml IV Total 141 ml 295 ml 602 ml 330 ml Tube Feeding 318 ml 385 ml 857 ml 386 ml Other 60 ml Output Urine Total 150 ml 240 ml 400 ml 0 ml Hemodialysis 2000 ml # Bowel Movements 1 1 1 2 Imaging Last Impressions Abdomen/Pelvis CT 03/10/17 0000 Signed Impressions: Service Date/Time: Friday, March 10, 2017 10:20 - CONCLUSION: 1. There is no retroperitoneal hematoma. 2. Bilateral pleural effusions right greater than left. 3. A nonspecific, nonobstructed bowel gas pattern most consistent with a mild ileus and/or gastroenteritis. Raul Craig MD Chest X-Ray 03/09/17 1600 Signed Impressions: Service Date/Time: Thursday, March 09, 2017 19:16 - CONCLUSION: Bilateral pulmonary air space disease again seen. Evaristo Massey MD Abdomen X-Ray 03/07/17 0000 Signed Impressions: Service Date/Time: Tuesday, March 07, 2017 13:26 - CONCLUSION: No acute disease. Bg Faust MD Thoracentesis 03/03/17 0000 Signed Impressions: Service Date/Time: Friday, March 03, 2017 14:09 - CONCLUSION: Uncomplicated CT-guided right thoracentesis. Cash Cowan MD Chest CT 03/02/17 0000 Signed Impressions: Service Date/Time: Thursday, March 02, 2017 11:42 - CONCLUSION: Large bilateral pleural effusions and bibasilar consolidation and/or compressive collapse not present on the study from 2015. Travis Nguyen MD Lower Extremity Ultrasound 02/27/17 0000 Signed Impressions: Service Date/Time: Monday, February 27, 2017 09:13 - CONCLUSION: Normal examination. Evaristo Massey MD Head CT 02/24/17 0000 Signed Impressions: Service Date/Time: Friday, February 24, 2017 18:59 - CONCLUSION: 1. No acute hemorrhage or mass effect. 2. Acute sinusitis in the left maxillary sinus. Raul Craig MD Cervical Spine MRI 02/24/17 0000 Signed Impressions: Service Date/Time: Friday, February 24, 2017 22:46 - CONCLUSION: 1. Small central protrusion at C4-5 without canal stenosis. 2. Small central protrusion at C3-4 with minimal extruded component. 3. Mild broad-based disc bulges at C5- 6 and C6-7 levels without canal stenosis. Neto Duenas MD Cervical Spine CT 02/24/17 0000 Signed Impressions: Service Date/Time: Friday, February 24, 2017 19:02 - CONCLUSION: 1. Moderate narrowing of left neural foramina at the C3-4 level secondary to hypertrophic change involving the facet joint. 2. Mild degenerative change at the C5-6 and C6-7 levels. 3. Mild disc osteophyte complex at C5-6 with mild narrowing of the neural foramina. Raul Craig MD Brain MRI 02/24/17 0000 Signed Impressions: Service Date/Time: Friday, February 24, 2017 22:46 - CONCLUSION: 1. No acute intracranial abnormality. 2. Left maxillary sinus disease. 3. No acute infarction. Neto Duenas MD Laboratory Test 03/10/17 03/10/17 03/10/17 03/10/17 03:15 05:25 09:02 14:50 White Blood Count 10.6 TH/MM3 10.1 TH/MM3 Red Blood Count 2.65 MIL/MM3 2.64 MIL/MM3 Hemoglobin 8.2 GM/DL 8.1 GM/DL 8.5 GM/DL Hematocrit 23.4 % 23.4 % 25.2 % Mean Corpuscular Volume 88.0 FL 88.9 FL Mean Corpuscular Hemoglobin 30.9 PG 30.6 PG Mean Corpuscular Hemoglobin 35.1 % 34.5 % Concent Red Cell Distribution Width 14.7 % 14.9 % Platelet Count 121 TH/MM3 121 TH/MM3 Mean Platelet Volume 9.9 FL 9.7 FL Neutrophils (%) (Auto) 94.0 % 94.2 % Lymphocytes (%) (Auto) 1.7 % 1.6 % Monocytes (%) (Auto) 4.1 % 4.0 % Eosinophils (%) (Auto) 0.0 % 0.0 % Basophils (%) (Auto) 0.2 % 0.2 % Neutrophils # (Auto) 10.0 TH/MM3 9.5 TH/MM3 Lymphocytes # (Auto) 0.2 TH/MM3 0.2 TH/MM3 Monocytes # (Auto) 0.4 TH/MM3 0.4 TH/MM3 Eosinophils # (Auto) 0.0 TH/MM3 0.0 TH/MM3 Basophils # (Auto) 0.0 TH/MM3 0.0 TH/MM3 CBC Comment DIFF FINAL DIFF FINAL Differential Comment Sodium Level 139 MEQ/L 139 MEQ/L Potassium Level 5.1 MEQ/L 5.4 MEQ/L Chloride Level 98 MEQ/L 98 MEQ/L Carbon Dioxide Level 29.1 MEQ/L 28.1 MEQ/L Anion Gap 12 MEQ/L 13 MEQ/L Blood Urea Nitrogen 122 MG/DL 129 MG/DL Creatinine 5.29 MG/DL 5.56 MG/DL Estimat Glomerular Filtration 11 ML/MIN 10 ML/MIN Rate Random Glucose 205 MG/DL 226 MG/DL Calcium Level 8.1 MG/DL 8.3 MG/DL Phosphorus Level 8.6 MG/DL 7.9 MG/DL Magnesium Level 2.9 MG/DL 2.9 MG/DL Albumin 3.3 GM/DL 3.3 GM/DL Total Bilirubin 0.6 MG/DL Aspartate Amino Transf 11 U/L (AST/SGOT) Alanine Aminotransferase 29 U/L (ALT/SGPT) Alkaline Phosphatase 45 U/L Total Protein 5.8 GM/DL Blood Type AB POSITIVE Crossmatch Leukocyte-Reduced Red Blood Cells Blood Bank Comment Date/Time Procedure Status Source Growth 03/07/17 17:20 Gram Stain - Final Complete Bronchial Washings Bronchial 03/07/17 17:20 Bronchial Culture - Final Complete Bronchial Washings Bronchial LIGHT GROWTH NORMAL RESPIRATORY JEN 03/07/17 17:20 Fungal Smear - Final Resulted Bronchial Washings Bronchial NO FUNGAL ELEMENTS SEEN. 03/07/17 17:20 Fungal Culture - Preliminary Resulted Yeast Species 03/07/17 17:20 Acid Fast Stain - Final Resulted Bronchial Washings Bronchial NO ACID FAST BACILLI SEEN 03/07/17 17:20 Mycobacterial Culture Resulted Bronchial Washings Bronchial Pending Physical Examination HEENT: Normocephalic; atraumatic; no jaundice. CHEST: Resp. even/unlabored. OETT to vent. Course breath sounds. CARDIAC: RRR, hypotensive ABDOMEN: Soft, nondistended, nontender; no hepatosplenomegaly; bowel sounds are present in all four quadrants. Liquid brown stool EXTREMITIES: Generalized edema. SKIN: Multiple ecchymotic area THREAD REELER: Sedated on vent. (Mary Kemp) Assessment and Plan Plan ASSESSMENT: - Anemia, requiring multiple blood transfusions. HH on admission (02/24)---> 10.7/32.4. This has dropped as low as 6.2/19.0 and has required 4 units of PRBC during this hospitalization. He did have some bloody secretions from the ET tube, but has not had any obvious active GI bleeding according to the nurse. He is tolerating his TF and had a liquid light brown bowel movement while I was in the room. Palliative care was consulted and is planning on meeting with the patient to discuss goals of care tomorrow at 10:30am. At this point, since there is no GI bleeding, we will wait for the family meeting to decide about feeding tube placement before we discuss EGD vs. EGD with PEG. If family is wanting to continue aggressive care with trach/peg, then we can plan for this all at one time. PPI. Monitor HH. Transfuse as necessary. - Acute respiratory failure/PNA/COPD/SEBASTIAN/Pleural effusions. Vent per CCM. - Acute renal failure. HD per renal. - CAD, CHF, HTN, Hyperlipidemia, paroxysmal atrial fibrillation/flutter, moderate , moderate severe TR per cardiology. EF 25%. - DM, Chronic Lymphedema per CCM PLAN: - Cont. TF for now - Cont. PPI - Monitor HH - Transfuse as necessary - Supportive care - Will wait until after family meeting tomorrow to discuss with patient's family possible EGD vs. EGD with PEG tube placement. - Further recommendations to follow based on results of above - PT seen and examined by Dr. Padilla and myself and this note is written on his behalf (Mary Kemp) Physician Comments Patient seen and examined Agree with above Continue with current supportive care Monitor labs Await family decision (Julius Padilla MD) Mary Kemp Mar 10, 2017 15:44 Julius Padilla MD Mar 10, 2017 20:58
[2017-03-10] MEDS ORDERED: SODIUM BICARBONATE 8.4% INJ 50 MEQ/50 ML SYR IV PUSH ONE (19:00)
[2017-03-10] MEDS ORDERED: ROCURONIUM INJ 100 MG/10 ML VIAL IV ONE (19:00)
[2017-03-10] MEDS ORDERED: EPINEPHrine HCL (1:10,000) 1 MG/10 ML SYRINGE ONE (19:08)
[2017-03-10] MEDS ORDERED: DESMOPRESSIN INJ 20 MCG in SODIUM CHLORIDE 0.9% INJ 50 ML IV ONE (20:00)
[2017-03-10] MEDS ORDERED: DESMOPRESSIN ACETATE 4 MCG/ML VIAL IV PUSH ONE (20:00)
--- NOTE | 2017-03-10 20:01 | PD.PROCEDR ---
Procedure Note Procedure Procedure DATE: 03/07/2017 Flexible Fiberoptic bronchoscopy: Postoperative diagnosis Mucous plugging right bronchus intermedius Bloody secretions cleared with suctioning of sterile saline and 2 ampules sodium bicarbonate INDICATION: Bloody secretions from ET tube CONSENT Informed consent for procedure was obtained from Noni Stokes. DESCRIPTION OF THE PROCEDURE Patient was on PRVC ventilation with FiO2 100%. 15/600/1.1/10/100%. Anesthesia provided with fentanyl drip@200 mg an hour, Versed 10 mg an hour. He received 50 mill grams rocuronium 1. I entered the 7.5 ET tube with the flexible bronchoscope. Thick bloody secretions within the ET tube. The gwendolyn was sharp. Copious bloody secretions and hyperdynamic airway were noted beginning with the left mainstem bronchus and these findings were noted also in the lingula/lower lobe. These were irrigated with copious stools saline. One ampule sodium bicarbonate was provided to the lingula and left lower lobe with cessation of bleeding. No masses noted. No obvious source of bleeding was noted. The scope was removed. Scope was introduced back into the 7.5 ET tube and thick bloody mucus plugging in the right mainstem just proximal to the left upper lobe. This was suctioned with copious sterile saline. The right upper, middle lower lobes were all examined. Hyperdynamic airway. Friable mucosa noted throughout. Thick mucous plug was irrigated with sterile saline bronchus intermedius to the right middle/lower lobe. This was irrigated with 1 ampule of sodium bicarbonate. Cessation of bleeding was noted. Right upper lobe was inspected and irrigated with one half ampules of bicarbonate. Cessation of bleeding. I reinspected the left and right elbows with no obvious bleeding noted. Bronchoscope was removed and follow-up chest x-ray currently pending at time of dictation. ESTIMATED BLOOD LOSS: Minimal COMPLICATIONS: No apparent complications. STAT chest x-ray pending at time of dictation Ramo Almaraz MD, Louis M. MD Mar 10, 2017 20:01
--- NOTE | 2017-03-10 20:45 | RADRPT ---
EXAM DATE/TIME: 03/10/2017 20:19 [facility] COMPARISON: CHEST SINGLE AP, March 09, 2017, 19:16. INDICATIONS : Post bronchoscope. MEDICAL HISTORY : Cardiovascular disease. Congestive heart failure. Hypertension. SURGICAL HISTORY : None. ENCOUNTER: Subsequent ACUITY: 1 day PAIN SCORE: Non-responsive. LOCATION: Bilateral chest FINDINGS: A single view of the chest demonstrates bilateral airspace disease. Endotracheal tube, left jugular c entral line and nasogastric tube are unchanged. Right jugular central line is also unchanged. No pneu mothorax is seen. Osseous structures are intact. CONCLUSION: Stable chest. No pneumothorax. Neto Duenas MD on March 10, 2017 at 20:42 Board Certified Radiologist. This report was verified electronically.
[2017-03-10] MEDS: INSULIN DETEMIR 100 UNITS/ML VIAL SQ SCH (21:14)
[2017-03-10] MEDS: ATORVASTATIN 80 MG TAB PO SCH (21:15)
[2017-03-10] MEDS: ASPIRIN EC 81 MG TABEC PO SCH (21:15)
[2017-03-10 23:05] LABS: HEMATOCRIT 27.5 % (39.0-51.0)
[2017-03-11] VITALS (19 sets, daily range): BP systolic 82–140; BP diastolic 50–75; PULSE 85–110; RESP 18–23; TEMP 97.4–99.2; O2SAT 92–100
[2017-03-11] MEDS: fentaNYL 2,500 MCG/NS 250 ML IV SCH ×3 (00:10→21:09)
[2017-03-11] MEDS: PIPERACIL-TAZO 2.25 GM PREMIX 50 ML IV SCH ×2 (00:10→05:54)
[2017-03-11] MEDS: INSULIN NovoLIN REGULAR SUPPLEMENTAL SCALE SQ SCH ×5 (00:11→20:21)
[2017-03-11] MEDS: hydrALAZINE HCL 20 MG/ML VIAL IV PUSH SCH ×6 (01:15→20:22)
[2017-03-11] MEDS: RESP: SODIUM CHLORIDE 3% 4 ML NEB NEB SCH ×6 (02:49→23:11)
[2017-03-11] MEDS: RESP: ALBUTEROL 2.5 MG/IPRATROPIUM 0.5 MG NEB (SCH) INH ×6 (02:49→23:10)
[2017-03-11] MEDS: CHLORHEXIDINE GLUCONATE 2 % 1 PACK (2 CLOTHS) TOP SCH (04:00)
[2017-03-11 04:27] LABS: AUTOMATED NEUTROPHIL # 7.8 TH/MM3 (1.8-7.7); BASOPHIL % 0.2 % (0.0-2.0); EOSINOPHIL % 0.1 % (0.0-4.0); HEMATOCRIT 29.1 % (39.0-51.0); HEMO FLAGS DIFF FINAL; LYMPH % 1.8 % (9.0-44.0); LYMPHOCYTE # 0.2 TH/MM3 (1.0-4.8); MEAN CELL VOLUME 87.9 FL (80.0-100.0); MEAN CORPUSCULAR HEMOGLOBIN 29.3 PG (27.0-34.0); MEAN CORPUSCULAR HGB CONC 33.3 % (32.0-36.0); MONO % 4.2 % (0.0-8.0); NEUT % 93.7 % (16.0-70.0); PLATELET COUNT 112 TH/MM3 (150-450); RED BLOOD COUNT 3.31 MIL/MM3 (4.50-5.90); RED CELL DISTRIBUTION WIDTH 16.1 % (11.6-17.2); WHITE BLOOD COUNT 8.3 TH/MM3 (4.0-11.0)
[2017-03-11 05:03] LABS: BICARBONATE 29.4 MEQ/L (21.0-32.0); POTASSIUM 5.5 MEQ/L (3.5-5.1)
[2017-03-11] MEDS: ARTIFICIAL TEARS OPTH SOLN 15 ML BTL EACH EYE SCH ×3 (05:54→22:18)
[2017-03-11] MEDS: METOCLOPRAMIDE HCL 10 MG/2 ML VIAL IV PUSH SCH ×3 (05:55→22:18)
[2017-03-11] MEDS: RESP: BUDESONIDE 0.5 MG/2 ML NEB NEB SCH ×2 (07:20→19:20)
--- NOTE | 2017-03-11 07:58 | PD.CARD.PN ---
Subjective Subjective Remarks intubated, mechanically ventilated (Robert Marte) Objective Vital Signs / I&O Vital Signs Date Time Temp Pulse Resp B/P Pulse Ox O2 Delivery O2 Flow Rate FiO2 03/11/17 07:21 100 60 03/11/17 06:30 100 03/11/17 06:00 91 03/11/17 04:32 97 60 03/11/17 04:00 96 03/11/17 04:00 98.6 96 18 140/75 94 03/11/17 04:00 60 03/11/17 02:00 87 03/11/17 01:21 98 60 03/11/17 01:20 60 03/11/17 00:00 65 03/11/17 00:00 99.2 92 18 101/62 96 03/11/17 00:00 92 03/10/17 22:23 96 70 03/10/17 22:00 91 03/10/17 22:00 70 03/10/17 20:01 80 03/10/17 20:00 100 03/10/17 20:00 100.3 128 18 92/56 98 03/10/17 20:00 128 03/10/17 19:29 98 100 03/10/17 19:10 99 100 03/10/17 18:00 102 03/10/17 16:00 60 03/10/17 16:00 97.9 95 15 84/51 94 03/10/17 16:00 95 03/10/17 15:25 88 65 03/10/17 14:00 109 03/10/17 12:00 60 03/10/17 12:00 112 03/10/17 12:00 98.4 112 15 102/67 99 03/10/17 11:46 98 70 03/10/17 10:35 90 100 03/10/17 10:00 80 03/10/17 08:00 50 03/10/17 08:00 67 03/10/17 08:00 98.1 67 15 88/51 98 03/10/17 07:57 98 50 I/O 03/10/17 03/10/17 03/10/17 03/11/17 03/11/17 03/11/17 07:00 15:00 23:00 07:00 15:00 23:00 Intake Total 716 ml 714 ml 1484 ml 1924 ml Output Total 0 ml 2520 ml 385 ml 220 ml Balance 716 ml -1806 ml 1099 ml 1704 ml IV Total 330 ml 473 ml 662 ml 1418 ml Tube Feeding 386 ml 241 ml 412 ml 446 ml Packed Cells 350 ml Other 60 ml 60 ml Output Urine Total 0 ml 20 ml 25 ml 20 ml Stool Total 360 ml 200 ml Tube Feeding Residual Discard 0 ml 0 ml Hemodialysis 2500 ml # Bowel Movements 2 3 Physical Exam GENERAL: Well-nourished, well-developed patient in no apparent distress. NECK: No JVD. No carotid bruit. CARDIOVASCULAR: Regular rate and rhythm. S1/S2 no murmur, rub, or gallop. RESPIRATORY: No accessory muscle use. rhonchi to auscultation. Breath sounds equal bilaterally. GASTROINTESTINAL: Abdomen soft, non-tender, nondistended. MUSCULOSKELETAL: Extremities without clubbing, cyanosis, or edema. Laboratory Laboratory Tests Test 03/10/17 03/10/17 03/10/17 03/10/17 09:02 14:50 16:08 22:40 Blood Type AB POSITIVE Crossmatch Leukocyte-Reduced Leukocyte-Reduced Red Blood Red Blood Cells Cells Blood Bank Comment Hemoglobin 8.5 GM/DL 9.4 GM/DL Hematocrit 25.2 % 27.5 % Potassium Level 4.4 MEQ/L Test 03/11/17 03:35 White Blood Count 8.3 TH/MM3 Red Blood Count 3.31 MIL/MM3 Hemoglobin 9.7 GM/DL Hematocrit 29.1 % Mean Corpuscular Volume 87.9 FL Mean Corpuscular Hemoglobin 29.3 PG Mean Corpuscular Hemoglobin 33.3 % Concent Red Cell Distribution Width 16.1 % Platelet Count 112 TH/MM3 Mean Platelet Volume 10.1 FL Neutrophils (%) (Auto) 93.7 % Lymphocytes (%) (Auto) 1.8 % Monocytes (%) (Auto) 4.2 % Eosinophils (%) (Auto) 0.1 % Basophils (%) (Auto) 0.2 % Neutrophils # (Auto) 7.8 TH/MM3 Lymphocytes # (Auto) 0.2 TH/MM3 Monocytes # (Auto) 0.4 TH/MM3 Eosinophils # (Auto) 0.0 TH/MM3 Basophils # (Auto) 0.0 TH/MM3 CBC Comment DIFF FINAL Differential Comment Sodium Level 141 MEQ/L Potassium Level 5.5 MEQ/L Chloride Level 98 MEQ/L Carbon Dioxide Level 29.4 MEQ/L Anion Gap 14 MEQ/L Blood Urea Nitrogen 117 MG/DL Creatinine 4.98 MG/DL Estimat Glomerular Filtration 11 ML/MIN Rate Random Glucose 257 MG/DL Calcium Level 8.8 MG/DL Phosphorus Level 8.0 MG/DL Albumin 3.3 GM/DL (Robert Marte) Assessment and Plan Problem List: (1) NSTEMI (non-ST elevated myocardial infarction) (2) Acute CHF (3) Shock (4) Atrial fibrillation Assessment and Plan Acute respiratory distress appears to be multifactorial. PNA, COPD, CHF. FIO2 60% CHF, acute systolic Cardiomyopathy - EF 25%. Severe PHTN NSTEMI Sepsis At least moderate aortic stenosis. HTN - well controlled ARF - slight improvement NSVT - No further VT seen on tele on amiodarone (Robert Marte) Assessment and Plan Continue supportive care (Israel Gonzalez MD) Robert Marte Mar 11, 2017 07:58 Israel Gonzalez MD Mar 11, 2017 08:01
--- NOTE | 2017-03-11 08:25 | HHI.GIFU ---
Subjective Remarks Pt had to have emergent bronchoscopy for increased bloody secretions from tracheostomy, he also had hypoxia and went up to FIO2 100%, they are now weaning this down- down to 60%. No active GI bleeding. Palliative care is meeting with family at 11am today. (Mary Kemp) Objective Vitals I&O Vital Signs Date Time Temp Pulse Resp B/P Pulse Ox O2 Delivery O2 Flow Rate FiO2 03/11/17 07:21 100 60 03/11/17 06:30 100 03/11/17 06:00 91 03/11/17 04:32 97 60 03/11/17 04:00 96 03/11/17 04:00 98.6 96 18 140/75 94 03/11/17 04:00 60 03/11/17 02:00 87 03/11/17 01:21 98 60 03/11/17 01:20 60 03/11/17 00:00 65 03/11/17 00:00 99.2 92 18 101/62 96 03/11/17 00:00 92 03/10/17 22:23 96 70 03/10/17 22:00 91 03/10/17 22:00 70 03/10/17 20:01 80 03/10/17 20:00 100 03/10/17 20:00 100.3 128 18 92/56 98 03/10/17 20:00 128 03/10/17 19:29 98 100 03/10/17 19:10 99 100 03/10/17 18:00 102 03/10/17 16:00 60 03/10/17 16:00 97.9 95 15 84/51 94 03/10/17 16:00 95 03/10/17 15:25 88 65 03/10/17 14:00 109 03/10/17 12:00 60 03/10/17 12:00 112 03/10/17 12:00 98.4 112 15 102/67 99 03/10/17 11:46 98 70 03/10/17 10:35 90 100 03/10/17 10:00 80 I/O 03/10/17 03/10/17 03/10/17 03/11/17 03/11/17 03/11/17 07:00 15:00 23:00 07:00 15:00 23:00 Intake Total 716 ml 714 ml 1484 ml 1924 ml Output Total 0 ml 2520 ml 385 ml 220 ml Balance 716 ml -1806 ml 1099 ml 1704 ml IV Total 330 ml 473 ml 662 ml 1418 ml Tube Feeding 386 ml 241 ml 412 ml 446 ml Packed Cells 350 ml Other 60 ml 60 ml Output Urine Total 0 ml 20 ml 25 ml 20 ml Stool Total 360 ml 200 ml Tube Feeding Residual Discard 0 ml 0 ml Hemodialysis 2500 ml # Bowel Movements 2 3 Laboratory Laboratory Tests Test 03/10/17 03/10/17 03/10/17 03/10/17 09:02 14:50 16:08 22:40 Blood Type AB POSITIVE Crossmatch Leukocyte-Reduced Leukocyte-Reduced Red Blood Red Blood Cells Cells Blood Bank Comment Hemoglobin 8.5 9.4 Hematocrit 25.2 27.5 Potassium Level 4.4 Test 03/11/17 03:35 White Blood Count 8.3 Red Blood Count 3.31 Hemoglobin 9.7 Hematocrit 29.1 Mean Corpuscular Volume 87.9 Mean Corpuscular Hemoglobin 29.3 Mean Corpuscular Hemoglobin 33.3 Concent Red Cell Distribution Width 16.1 Platelet Count 112 Mean Platelet Volume 10.1 Neutrophils (%) (Auto) 93.7 Lymphocytes (%) (Auto) 1.8 Monocytes (%) (Auto) 4.2 Eosinophils (%) (Auto) 0.1 Basophils (%) (Auto) 0.2 Neutrophils # (Auto) 7.8 Lymphocytes # (Auto) 0.2 Monocytes # (Auto) 0.4 Eosinophils # (Auto) 0.0 Basophils # (Auto) 0.0 CBC Comment DIFF FINAL Differential Comment Sodium Level 141 Potassium Level 5.5 Chloride Level 98 Carbon Dioxide Level 29.4 Anion Gap 14 Blood Urea Nitrogen 117 Creatinine 4.98 Estimat Glomerular Filtration 11 Rate Random Glucose 257 Calcium Level 8.8 Phosphorus Level 8.0 Albumin 3.3 Date/Time Procedure Status Source Growth 03/07/17 17:20 Gram Stain - Final Complete Bronchial Washings Bronchial 03/07/17 17:20 Bronchial Culture - Final Complete Bronchial Washings Bronchial LIGHT GROWTH NORMAL RESPIRATORY JEN 03/07/17 17:20 Fungal Smear - Final Resulted Bronchial Washings Bronchial NO FUNGAL ELEMENTS SEEN. 03/07/17 17:20 Fungal Culture - Preliminary Resulted Bronchial Washings Bronchial 03/07/17 17:20 Acid Fast Stain - Final Resulted Bronchial Washings Bronchial NO ACID FAST BACILLI SEEN 03/07/17 17:20 Mycobacterial Culture Resulted Bronchial Washings Bronchial Pending Imaging Last Impressions Chest X-Ray 03/10/17 0000 Signed Impressions: Service Date/Time: Friday, March 10, 2017 20:19 - CONCLUSION: Stable chest. No pneumothorax. Neto Duenas MD Abdomen/Pelvis CT 03/10/17 0000 Signed Impressions: Service Date/Time: Friday, March 10, 2017 10:20 - CONCLUSION: 1. There is no retroperitoneal hematoma. 2. Bilateral pleural effusions right greater than left. 3. A nonspecific, nonobstructed bowel gas pattern most consistent with a mild ileus and/or gastroenteritis. Raul Craig MD Abdomen X-Ray 03/07/17 0000 Signed Impressions: Service Date/Time: Tuesday, March 07, 2017 13:26 - CONCLUSION: No acute disease. Bg Faust MD Thoracentesis 03/03/17 0000 Signed Impressions: Service Date/Time: Friday, March 03, 2017 14:09 - CONCLUSION: Uncomplicated CT-guided right thoracentesis. Cash Cowan MD Chest CT 03/02/17 0000 Signed Impressions: Service Date/Time: Thursday, March 02, 2017 11:42 - CONCLUSION: Large bilateral pleural effusions and bibasilar consolidation and/or compressive collapse not present on the study from 2014. Travis Nguyen MD Lower Extremity Ultrasound 02/27/17 0000 Signed Impressions: Service Date/Time: Monday, February 27, 2017 09:13 - CONCLUSION: Normal examination. Evaristo Massey MD Head CT 02/24/17 0000 Signed Impressions: Service Date/Time: Friday, February 24, 2017 18:59 - CONCLUSION: 1. No acute hemorrhage or mass effect. 2. Acute sinusitis in the left maxillary sinus. Raul Craig MD Cervical Spine MRI 02/24/17 0000 Signed Impressions: Service Date/Time: Friday, February 24, 2017 22:46 - CONCLUSION: 1. Small central protrusion at C4-5 without canal stenosis. 2. Small central protrusion at C3-4 with minimal extruded component. 3. Mild broad-based disc bulges at C5- 6 and C6-7 levels without canal stenosis. Neto Duenas MD Cervical Spine CT 02/24/17 0000 Signed Impressions: Service Date/Time: Friday, February 24, 2017 19:02 - CONCLUSION: 1. Moderate narrowing of left neural foramina at the C3-4 level secondary to hypertrophic change involving the facet joint. 2. Mild degenerative change at the C5-6 and C6-7 levels. 3. Mild disc osteophyte complex at C5-6 with mild narrowing of the neural foramina. Raul Craig MD Brain MRI 02/24/17 0000 Signed Impressions: Service Date/Time: Friday, February 24, 2017 22:46 - CONCLUSION: 1. No acute intracranial abnormality. 2. Left maxillary sinus disease. 3. No acute infarction. Neto Duenas MD Physical Exam HEENT: Normocephalic; atraumatic; no jaundice. CHEST: Resp. even/unlabored. OETT to vent. Course breath sounds. CARDIAC: Irregular ABDOMEN: Soft, nondistended, nontender; no hepatosplenomegaly; bowel sounds are present in all four quadrants. Liquid brown stool EXTREMITIES: Generalized edema. 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 (Mary Kemp) Assessment and Plan Plan ASSESSMENT: - Anemia, requiring multiple blood transfusions. HH on admission (02/24)---> 10.7/32.4. This has dropped as low as 6.2/19.0 and has required 5 units of PRBC during this hospitalization. He did have some bloody secretions from the ET tube, but has not had any obvious active GI bleeding according to the nurse. He is tolerating his TF and passing light brown stool. Palliative care was consulted and is meeting with family at 11am today to discuss goals of care. We will follow up after family meeting to discuss EGD vs. EGD with peg. PPI. Monitor HH. Transfuse as necessary. - Acute respiratory failure/PNA/COPD/SEBASTIAN/Pleural effusions/Hemoptysis. S/P repeat bronchoscopy last night, Vent per CCM. - Acute renal failure. HD per renal. - CAD, CHF, HTN, Hyperlipidemia, paroxysmal atrial fibrillation/flutter, moderate , moderate severe TR per cardiology. EF 25%. - DM, Chronic Lymphedema per [facility] PLAN: - Cont. TF for now - Cont. PPI - Monitor HH - Transfuse as necessary - Supportive care - Will FU after family meeting at 11am to discuss with patient's family possible EGD vs. EGD with PEG tube placement. - Further recommendations to follow based on results of above - PT seen and examined by Dr. Padilla and myself and this note is written on his behalf ADDENDUM, nurse notified me that palliative care met with family and they are considering withdrawal of care tomorrow. (Mary Kemp) Physician Comments Patient seen and examined Agree with above Continue with current supportive care Monitor labs Agree with comfort care at this point Not much to add from a GI standpoint we will sign off (Julius Padilla MD ) Mary Kemp Mar 11, 2017 08:25 Julius Padilla MD Mar 11, 2017 21:33
[2017-03-11] MEDS ORDERED: TRIMETHOPRIM IV PRN ×2 (09:00)
[2017-03-11] MEDS ORDERED: WATE IV PRN ×2 (09:00)
[2017-03-11] MEDS: DOCUSATE SODIUM 100 MG CAP PO SCH (09:00)
[2017-03-11] MEDS ORDERED: DEXTROSE 5% IV PRN ×2 (09:00)
[2017-03-11] MEDS: FOLIC ACID 1 MG TAB PO SCH (09:00)
[2017-03-11] MEDS ORDERED: SULFAMETHOX IV PRN ×2 (09:00)
[2017-03-11] MEDS: BENEPROTEIN POWDER 1 PACK G-TUBE SCH ×3 (09:00→18:00)
[2017-03-11] MEDS: THIAMINE INJ 100 MG in SODIUM CHLORIDE 0.9% INJ 100 ML IV SCH (09:22)
[2017-03-11] MEDS: MIDAZOLAM 100 MG/NS 100 ML DRIP Premix IV SCH ×2 (09:22→19:26)
[2017-03-11] MEDS: MULTIVITAMIN TAB PO SCH (09:23)
[2017-03-11] MEDS: SENNOSIDES SYRUP 8.8 MG/5 ML CUP PO SCH ×2 (09:24→20:22)
[2017-03-11] MEDS: CALCIUM ACETATE 667 MG CAP PO SCH ×3 (09:25→18:05)
[2017-03-11] MEDS: methylPREDNISolone SOD SUCC 40 MG/1 ML VIAL IV PUSH SCH (09:25)
[2017-03-11] MEDS: AMIODARONE 200 MG TAB PO SCH ×2 (09:25→20:22)
[2017-03-11] MEDS: INSULIN DETEMIR 100 UNITS/ML VIAL SQ SCH ×2 (09:25→20:21)
[2017-03-11] MEDS: SODIUM CHLORIDE 0.9% FLUSH 10 ML FLUSH IVF PRN (09:26)
[2017-03-11] MEDS: PANTOPRAZOLE SODIUM 40 MG VIAL IV SCH (09:26)
[2017-03-11] MEDS: CHLORHEXIDINE 0.12% (ORAL KIT) 15 ML CUP MT SCH ×2 (09:27→20:20)
[2017-03-11] MEDS: SODIUM CHLORIDE 0.9% FLUSH 10 ML FLUSH IV FLUSH SCH ×2 (09:27→20:21)
[2017-03-11] MEDS: SODIUM CHLORIDE 0.9% FLUSH 10 ML FLUSH IVF SCH (09:27)
[2017-03-11] MEDS: SODIUM CHLORIDE 0.9% FLUSH 10 ML FLUSH IV FLUSH PRN (09:27)
[2017-03-11] MEDS: LACTIC ACID (AMMONIUM LACTATE) 12% LOTION 225 GM BTL TOPICAL SCH ×2 (09:28→20:22)
--- NOTE | 2017-03-11 10:47 | HHI.CCPN ---
Subjective Remarks/Hospital Course Per nocturnal medical administrative technician 02/26/17 Responded to [facility] overhead. Upon arrival to F pod discovered that patient was awake and normotensive, with sinus tachycardia in the 150s in severe respiratory distress. He had not lost a pulse but [facility] had been called to facilitate rapid evaluation and stabilization. 76-year-old male with past history of obesity, COPD, obstructive sleep apnea on CPAP, CHF, peripheral neuropathy, hypertension, diabetes, hyperlipidemia, obesity who receives medical care at the [facility]. He presented to [facility] emergency department 02/25/17 with falls and difficulty with balance. He also reported that he was having shortness of breath and cough for several days. Was not febrile in hospital. On the day of admission he had some chest pain across his chest. Troponins negative. He was treated for pneumonia with Rocephin and azithromycin. He was placed on steroids Solu-Medrol 60 mg IV every 6 hours. Received Lasix at about 6 PM on due to concern for volume overload. Echo had poor images but systolic function appeared reduced. Tonight he developed acutely worsening shortness of breath and Dr. Galicia presented to the emergency Department to evaluate him where he was found to be tachypneic and wheezing. He was given a neb and preparations were being made to place him on BiPAP. He was becoming less responsive and was looking upward when I arrived and respiratory was placing on Bipap. He was in extremis and it was felt he would need emergent intubation prior to transfer to ICU. He denied chest pain. He was preoxygenated on Bipap, did seem to become more alert and nodded that he agreed with proceeding with intubation. He was intubated in F pod and then transferred to [facility] Upon arrival to [facility] he was in atrial fibrillation in the 130s. SBP was 90/50 then 64/40. Central line was placed and he converted to sinus tachycadia in 101-130s. Subsequently he was normotensive with MAP 71. He was also sedated with propofol during the hypotension, improved after transition to fentanyl drip. 02/27: PA catheter placed yesterday. PA catheter readings are more consistent distributive/septic shock with high cardiac output with low SVR. CO 10-11. CI 2.8 SVRI [id number]. D/W Dr Butts. Will hold off Flolan challenge at this time for high PA pressure- mean 59-60. After weaning pressors, PA mean pressure is about 40. Patient's hemodynamics have improved, vasopressin is off now, Levophed is at 4 mics per minute. Give Bumex 2 mg 1 on Bumex drip at 2 mg per hour per Dr. Miner 02/28: Afebrile. Arousable on the vent and moves 4 extremities spontaneously but doesn't follow commands. No bowel movement since admission. Currently nothing by mouth. Remains on low-dose vasopressors including vasopressin and Levophed 03/01: Sproul Luisa catheter removed yesterday. Adequate urine output on Bumex drip at 1 mg an hour. Afebrile. Currently replaced potassium. 03/02: Afebrile. Bumex drip has been discontinued. Currently replaced potassium. Positive BM overnight. We'll attempt spontaneous breathing trials today. 03/03: Afebrile. Adequate urine output. Positive BM. Tolerating tube feeds. Heparin drip for thoracentesis. Eyes are open but not following commands. Continues on Versed and fentanyl drips. 03/04: Afebrile. Status post thoracentesis yesterday -1150 years transudative. Positive BM 1. Tolerating tube feeding. Hypertensive. Hydralazine added per cardiology. 03/05: Patient remains intubated sedated. Bedside ultrasound shows Moderate left pleural effusion. Agitated on lightening sedation 03/06: Remains intubated sedated. Overnight FiO2 had to increase to 100 % due to desaturation, now reduced to 60% again. Chest x-ray shows bilateral pulmonary edema. Nephrology contacted- hemodialysis today with attempt at 4L removal. Status post bedside thoracentesis (Left side) yesterday with 1L transudative fluid removal 03/07: Tmax 99.2. Currently 99. Positive bloody secretions from ET tube. Heparin drip has been off since yesterday. Desaturated overnight FiO2 currently down to 40%. PEEP set at.8. Resting in bed in no acute distress. Eyes open and moves all 4 extremity spontaneously but not following commands. 03/08: Afebrile currently. Status post bronchoscopy yesterday with copious amounts of hemorrhagic secretions without obvious source. Transfuse 3 units. Receives overnight. Again no obvious source of bleeding. Tolerating tube feeding. Positive BM. 03/09: Tmax 99. Positive BM. Noted decreased blood pressure overnight. Increased PEEP: Concomitant cause. Chest x-ray today pending. ARDS type picture yesterday. Plan for hemodialysis today. 03/10: PEEP down to 10. From 15. Hemoglobin dropped from 10-8 overnight. No obvious source of bleeding. CT abdomen/cells reveal no retroperitoneal hematoma. He is to have bloody secretions from ET tube. Heparin drip as been off for several days. GI will be consulted. Hemoccult pending. Subjective 03/11: Status post bronchoscopy yesterday for gross hemoptysis. No focal site of bleeding. Received bicarbonate which seemed to stop the bleeding. Very scant bloody secretions seen. FiO2 down 40%. Hemodialysis planned for today. Noted potassium 5.5. Family meeting planned for 11 with palliative care Objective Vital Signs Date Time Temp Pulse Resp B/P Pulse Ox O2 Delivery O2 Flow Rate FiO2 03/11/17 09:59 93 50 03/11/17 06:00 91 03/11/17 04:00 98.6 18 140/75 Intake and Output 03/10/17 03/10/17 03/11/17 08:00 16:00 00:00 Intake Total 716 ml 714 ml 1484 ml Output Total 0 ml 2520 ml 385.0 ml Balance 716 ml -1806 ml 1099.0 ml Result Diagram: 03/11/17 0335 03/11/17 0335 Other Results Microbiology Date/Time Procedure Status Source Growth 03/07/17 17:20 Gram Stain - Final Complete Bronchial Washings Bronchial 03/07/17 17:20 Bronchial Culture - Final Complete Bronchial Washings Bronchial LIGHT GROWTH NORMAL RESPIRATORY JEN 03/07/17 17:20 Fungal Smear - Final Resulted Bronchial Washings Bronchial NO FUNGAL ELEMENTS SEEN. 03/07/17 17:20 Fungal Culture - Preliminary Resulted Bronchial Washings Bronchial 03/07/17 17:20 Acid Fast Stain - Final Resulted Bronchial Washings Bronchial NO ACID FAST BACILLI SEEN 03/07/17 17:20 Mycobacterial Culture Resulted Bronchial Washings Bronchial Pending Imaging Last Impressions Chest X-Ray 03/10/17 0000 Signed Impressions: Service Date/Time: Friday, March 10, 2017 20:19 - CONCLUSION: Stable chest. No pneumothorax. Neto Duenas MD Abdomen/Pelvis CT 03/10/17 0000 Signed Impressions: Service Date/Time: Friday, March 10, 2017 10:20 - CONCLUSION: 1. There is no retroperitoneal hematoma. 2. Bilateral pleural effusions right greater than left. 3. A nonspecific, nonobstructed bowel gas pattern most consistent with a mild ileus and/or gastroenteritis. Raul Craig MD Abdomen X-Ray 03/07/17 0000 Signed Impressions: Service Date/Time: Tuesday, March 07, 2017 13:26 - CONCLUSION: No acute disease. Bg Faust MD Thoracentesis 03/03/17 0000 Signed Impressions: Service Date/Time: Friday, March 03, 2017 14:09 - CONCLUSION: Uncomplicated CT-guided right thoracentesis. Cash Cowan MD Chest CT 03/02/17 0000 Signed Impressions: Service Date/Time: Thursday, March 02, 2017 11:42 - CONCLUSION: Large bilateral pleural effusions and bibasilar consolidation and/or compressive collapse not present on the study from 2014. Travis Nguyen MD Lower Extremity Ultrasound 02/27/17 0000 Signed Impressions: Service Date/Time: Monday, February 27, 2017 09:13 - CONCLUSION: Normal examination. Evaristo Massey MD Head CT 02/24/17 0000 Signed Impressions: Service Date/Time: Friday, February 24, 2017 18:59 - CONCLUSION: 1. No acute hemorrhage or mass effect. 2. Acute sinusitis in the left maxillary sinus. Raul Craig MD Cervical Spine MRI 02/24/17 0000 Signed Impressions: Service Date/Time: Friday, February 24, 2017 22:46 - CONCLUSION: 1. Small central protrusion at C4-5 without canal stenosis. 2. Small central protrusion at C3-4 with minimal extruded component. 3. Mild broad-based disc bulges at C5- 6 and C6-7 levels without canal stenosis. Neto Duenas MD Cervical Spine CT 02/24/17 0000 Signed Impressions: Service Date/Time: Friday, February 24, 2017 19:02 - CONCLUSION: 1. Moderate narrowing of left neural foramina at the C3-4 level secondary to hypertrophic change involving the facet joint. 2. Mild degenerative change at the C5-6 and C6-7 levels. 3. Mild disc osteophyte complex at C5-6 with mild narrowing of the neural foramina. Raul Craig MD Brain MRI 02/24/17 0000 Signed Impressions: Service Date/Time: Friday, February 24, 2017 22:46 - CONCLUSION: 1. No acute intracranial abnormality. 2. Left maxillary sinus disease. 3. No acute infarction. Neto Duenas MD Objective Remarks GENERAL: 76-year-old male, critically ill currently orotracheally intubated in no acute distress SKIN: Warm and dry. No rash HEAD: Atraumatic. Normocephalic. EYES: Pupils equal and round 3-4 mm and reactive bilaterally. No scleral icterus. No injection or drainage. ENT: Orotracheally intubated NECK: Trachea midline. Right internal jugular, LIJ hemodialysis catheter clean dry and intact CARDIOVASCULAR: RRR. S1, S2. No S4. Faint 1/6 systolic murmur right upper sternal border RESPIRATORY: Few crackles appreciated bilaterally. Left greater than right Symmetrical excursion. GASTROINTESTINAL: Abdomen obese, protuberant, small umbilical reducible hernia. Bowel sounds are hypoactive. MUSCULOSKELETAL: Extremities with much improved lower extremity edema . Chronic venous stasis/lymphedema NEUROLOGICAL: Eyes are open. Positive corneal reflex. Positive gag. Moves all 4 extremity spontaneously but not following commands. Withdraws to pain upper and lower extremities bilaterally. A/P Assessment and Plan NEURO/PSYCH: Acute encephalopathy - secondary to hypercapnia and hypoxemia Peripheral neuropathy Allergic rhinitis Currently on propofol at 10 mcg/kg/m and Fentanyl at 50 mg per hour for sedation /analgesia while intubated. Goal of RASS -2. Daily sedation vacation MRI brain 02/24 - no acute abnormality MRI C-spinesmall central protrusion at C3/C4 with mild extruded central spinal cord C4-C5 without canal stenosis with mild disc bulging C5/6 and C6/7 EEG 02/27 revealed moderate to severe encephalopathy. No epileptiform activity Questionable history of EtOH use/abuse. We'll continue on thiamine/folate and multivitamin today Neurontin level 2.3. Previously on 600 mg 3 times a day for shingles pain management. Currently on hold Holding Flonase twice a day/Zyrtec 5 mill grams daily. Resume as clinically indicated RESP: Acute hypoxemic and hypercapnic respiratory failure Acute COPD exacerbation Bilateral large pl effusions History of asthma? Acute on chronic pulmonary artery hypertension Objective sleep apnea - noncompliant with CPAP History of tobacco abuse PRVC 18/600/1./. Ventilator bundle DuoNeb every 4 hours with albuterol every 2 hours when necessary Continue Pulmicort 0.5/2 one inhalation twice a day Solumedrol 20 milligrams every q24to be weaned over the next several days s/p thoracentesis left-sided 03/05 with 1L removed -transudate Right thoracentesis 03/03 likely transudative. -1150 Home medication regimen is Symbicort 160/4.5 to press twice a day, Spiriva 18 inhalation daily and Ventolin 4 times a day with duo nebs aerosols for breakthrough every 4 hours when necessary According to records, noncompliant with CPAP for SEBASTIAN Airway edema noted particularly large arytenoid edema noted on intubation 02/26 with anterior airway. Intubated with Glidescope and 7.5 ETT. Bronchoscopy 03/07 revealed no obvious source of bleeding. Bloody secretions throughout. See note Will need tracheostomy aggressive care to be continued Cardiovascular: Pulmonary edema Shock, distributive/septic resolved Acute on chronic systolic heart failure EF 25-30% Moderate Moderate to severe TR NSTEMI Paroxysmal atrial fibrillation/flutter History of Hypertension Hyperlipidemia History of coronary artery disease Currently off all vaso pressors. Additional fl removal today with HD (target 3L) PAC placed 02/26-initially distributive shock (CI 2.8, SVRI 1300). Cardiac index at 2.1. Cardiac output 5.2 and SVR 1250 this could be possibly be vaso constrictive/late sepsis versus effects of diuresis It is unclear whether pulmonary hypertension is secondary to left heart failure versus SEBASTIAN versus COPD Demolition Worker was unable to do transpulmonary gradient secondary to unable to wedge balloon Sproul Luisa catheter removed 02/[address] Butts IV heparin for NSTEMI and A Fib rate discontinued secondary to hemoptysis. Bumex 2 mg IV 1 02/27 and initiated Bumex infusion currently discontinued as of 03/03 Continue aspirin 81 mg daily Switched amiodarone drip secondary to 7 beat of V. tach at 0953 03/07 patient switched back to 400 twice a day 03/08 Troponin peaked at 27. Left heart catheterization when clinically stable Continue atorvastatin 80 mg daily at bedtime for dyslipidemia Unable to use beta charles secondary due to hypotension. On Lopressor 200 mg daily at home. Other blood pressures include lisinopril 40 mg daily and HCTZ 12.5 mg daily. On hold due to acute kidney injury Started hydralazine 5 milligrams IV every [address] Butts Echo 02/27: - Systolic function was severely reduced 25% to 30%. Diffuse hypokinesis. -Aortic valve: moderate stenosis. Tricuspid valve: Moderate/severe regurgitation. SUZAN 70 mmHg Echo 03/06 -- Left ventricle: The cavity size was mildly dilated. Wall thickness was increased in a pattern of mild LVH. There was concentric hypertrophy. Systolic function was severely reduced. The estimated ejection fraction was in the range of 20% to 25%. Diffuse hypokinesis. - Aortic valve: Valve mobility was mildly restricted. There was mild to moderate stenosis. Valve area: 1.37cm^2 (VTI). Valve area: 1.13cm^2 (Vmax). - Mitral valve: Mild regurgitation. - Left atrium: The atrium was mildly dilated. - Right ventricle: The cavity size was mildly dilated. - Atrial septum: No defect or patent foramen ovale was identified. - Tricuspid valve: Mild regurgitation. - Pulmonary arteries: PA peak pressure: 69mm Hg (S). Impressions: No colorflow noted across the ventricular septum concerning for a VSD. No papillary muscle ruptures noted. GI: Constipation Glucerna 1.5 goal 55 cc an hour Protonix 40 mg IV daily Colace and Senokot twice a day for bowel regimen Having BM Start Reglan 5 every 8 for high residual KUB 03/07 revealed nonspecific bowel gas pattern. : BPH Holding doxazosin 8 mg daily light of hypotension Maintain Barrios for accurate I's and O's in a critically ill patient FEN/RENAL: Acute kidney injury/ATN Monitor intake and output. Monitor electrolytes Bumex discontinued HD started 03/05, 2.5L fluid removed on 03/10. Hemodialysis is planned for today ID: Acute community acquired pneumonia Stenotrophomonas Septic shock-resolved Continue Zosyn ->Levaquin started 03/06 Bactrim started 03/09 discontinued his Zithromax after 8 days. Microbiology: lood culture 2 setsno growth to date 02/25sputum - no growth 02/25urine Legionella and pneumococcal antigen negative 02/25influenza screen negative 02/26 - urine - no growth 02/26 - blood cultures 2 - no growth 03/06: sputum culture - stenotrophomonas 03/07 - bronchoscopy -East Consult infectious disease with resistance stenotrophomonas with renal failure HEME: Normocytic anemia Leukocytosis Thrombocytopenia No indication for transfusion of blood products at this time Heparin drip off secondary to bloody secretions. 3 units PRBCs 03/07. Unknown if from hemodilution versus renal failure however no active bleeding appreciated currently. Transfuse 1 units PRBCs today. Recheck hemogram after transfusion. GI consulted for anemia. Possible PEG tube placed. 03/10 CT/pelvis revealed possible early ileus. Right greater than left pleural effusion. No retroperitoneal hematoma. ENDO: Poorly controlled diabetes mellitus - hemoglobin A1c of 8.6 Levemir 65 units twice a day with sliding scale insulin 4/moderate regimen. 21 units sliding scale insulin past 24 hours At home on Lantus 35 units twice a day and Novulin R 15 units 3 times a day with meals MSK Chronic lymphedema Osteoporosis/osteoarthritis Lac-Hydrin twice a day for lower extremity lymphedema 02/27 venous Dopplers showed no DVT Hold Risedronate 35 mg mg weekly for osteoporosis PROPH: Protonix 40 mg IV daily for stress ulcer prophylaxis. Heparin drip has been held secondary to bloody secretions. We'll start subcutaneous ACCESS: Right subclavian central venous line placed 02/26-03/08 Right IJ Cordis/day #4 discontinued 03/02 LIJ Vascath placed 03/05/17 day #7 Right IJ CVL day #4 placed 03/08 Full code Critical Care: The total critical care time was 35 minutes. Time to perform other separately billable procedures was not included in the critical care time. I discussed with at bedside. Care plan discussed all questions answered -> .Noni Stokes. Palliative care consulted for goals of care today. Ramo Almaraz MD Mar 11, 2017 10:47
--- NOTE | 2017-03-11 10:57 | PD.CONS ---
Consult Service Palliative Care . Consult Requested By Dr. Almaraz . Primary Care Physician Unknown . Reason for Consultation a. To assist with evaluation and management of symptoms including: dyspnea, pain. b. To assist medical decision maker(s) with: better understanding of current medical conditions; weighing benefits/burdens of medical treatment options; making medical treatment decisions. . HPI History of Present Illness Mr. Stokes is a 76-year-old male with past medical history of COPD, obesity, obstructive sleep apnea on CPAP, CHF, peripheral neuropathy, hypertension, diabetes and hyperlipidemia. Patient presented to [facility] emergency department on 02/24/17 with reports of intermittent, involuntary movements and tingling in upper extremity for the past 2 days. Patient also reported worsening shortness of breath over the past several days. On the day of admission he reported chest pain. * Vital signs temp 98.3, pulse 88, respiration 18, BP 115/54, oxygen saturation 96% on 2 L nasal cannula * WBC .3, hemoglobin 10.7, hematocrit 32.4, platelet 230, neutrophils 84.3% * PT 11.3, INR 1.0, PTT 30.3 * sodium 138, potassium 5.2, chloride 105, carbon dioxide 25.5, BUN 30, creatinine 1.85, GFR 36, glucose 101 * lactic acid 1.1, calcium 9.0, magnesium 2.0 * total bilirubin .3, AST 10, ALT 21, alkaline phosphatase 117 * total creatine kinase 44, troponin 0.02 * total protein 6.5, albumin 3.2 * urinalysis negative * BNP 702 * Initial Echocardiogram was poor quality. Repeat echocardiogram 02/26/17 revealed ejection fraction 25 30% * CT head no acute hemorrhage or mass effect, acute sinusitis and left maxillary sinus. * Cervical spine MRI small central protrusion at C4 5 without canal stenosis , small central protrusion at C3 4 with minimal extruded component, mild broad -based disc bulges at C5 6 and C6 7 levels without canal stenosis. * Cervical spine CT moderate narrowing of left neural foramina at C3-4 level secondary to hypertrophic change involving the facet joint, mild degenerative changes at C5 6 and C6 7 levels, mild disc osteophyte complex at C5 6 with mild narrowing of neural foramina. * MRI brain no acute intracranial abnormality, left maxillary sinus disease, no acute infarction. * Chest x-ray new consolidative obesity in right lung base of concern for pneumonia, mild hazy opacity of left lung base, mild blunting of both costophrenic angles which could indicate small effusions. Patient was admitted with pneumonia, cellulitis, CHF, COPD. He was treated with Zosyn and is azithromycin. On 02/26/17, CODE BLUE was called patient was awake and normotensive with sinus tachycardia in the 150s in severe respiratory distress, he had not yet lost a pulse but code blue was called to facilitate rapid evaluation and stabilization. He required emergent intubation placed on mechanical ventilation and transferred to ICU. Patient was in atrial fibrillation with heart rate in the 130s with blood pressure 90/50 then 64/40. Troponin 14.5, 11.4, 27.6 sequentially. Cardiology, Dr. Butts was consulted for NSTEMI with recommendation for initial cardiac diagnostics/coronary angiogram when clinically stabilizes. Nephrology, Dr. Miner was consulted for acute on chronic kidney disease likely due to hypotension, renal hypoperfusion and ATN indicates prognosis poor. EEG on revealed moderate to severe encephalopathy. 03/06/17, repeat echocardiogram reveals ejection fraction [address] Ford, infectious disease was consulted for pneumonia due to Stenotrophomonas and leukocytosis. Notes indicate patient unlikely to improve with Stenotrophomonas pneumonia without adequate treatment, change to Bactrim. Patient remains in the ICU, with respiratory failure, acute community acquired pneumonia, acute COPD exacerbation, bilateral large pleural effusions, pulmonary hypertension, obstructive sleep apnea, pulmonary edema, acute on chronic systolic heart failure, moderate aortic stenosis, moderate to severe tricuspid regurgitation, acute renal failure, paroxysmal atrial fibrillation/ flutter, chronic lymphedema, and poorly controlled diabetes with acute renal failure on hemodialysis. 03/10/17 hemoglobin dropped from 10 to 8 overnight, no obvious source of bleeding. CT scan abdomen pelvis reveals no retroperitoneal hematoma, bloody secretions noted from ET tube, heparin drip was stopped several days ago. Gastroenterology was consulted for possible bleed and EGD/PEG tube placement. Palliative care is consulted to further clarify treatment goals as patient is approaching tracheostomy and PEG tube decisions. . Function/Cognitive Trajectory Family reports ongoing decline for the past few years. They report more rapid decline since August 2016 when the patient developed shingles on LE which impacted his ability to ambulate. He has been sleeping most of the day and night. Physically unable to do much of anything. He was also debilitated due to weight gain which impacted breathing and ability to ambulate. He was needing more assistance with his care. . Review of Systems ROS Limitations: [facility], ROS per family report based on prior to admission and EMR review. ), Hearing Impaired (bilateral ) Constitutional: COMPLAINS OF: Fatigue, Weight gain, Pain (bilateral LEs, back. ), Generalized weakness Endocrine: COMPLAINS OF: Heat/cold intolerance Eyes: DENIES: Blurred vision, Diplopia, Eye inflammation, Eye pain, Vision loss , Photosensitivity, Double Vision, Blind spots Ears, nose, mouth, throat: COMPLAINS OF: Sinus Pain Respiratory: COMPLAINS OF: Apneas (sleep apnea), Cough, Shortness of breath Cardiovascular: COMPLAINS OF: Chest pain, Dyspnea on Exertion, Lower Extremity Edema Musculoskeletal: COMPLAINS OF: Back pain Integumentary: COMPLAINS OF: Abnormal pigmentation (LEs) Hematologic/Lymphatics: COMPLAINS OF: Bruising Neurologic: COMPLAINS OF: Poor Balance Past Family Social History Coded Allergies: Bupropion (Verified Allergy, Unknown, 02/24/17) Hydrocodone (Verified Allergy, Unknown, 02/24/17) Terazosin (Verified Allergy, Unknown, 02/24/17) Uncoded Allergies: ZYBAN (Allergy, Severe, 10/22/15) Past Medical History Hypertension Diabetes Coronary artery disease CHF COPD Sleep apnea Chronic bilateral lower extremity lymphedema Obesity Peripheral neuropathy Hyperlipidemia Prior [place] . Past Surgical History Right knee surgery Left wrist surgery Hemorrhoidectomy Fistular repair Tonsillectomy . Reported Medications * Symbicort 2 puffs BID * Doxazosin 8 mg PO HS * lisinopril 40 mg PO daily * triamcinolone cream apply topically BID * gabapentin 600 mg PO TID * Spiriva inhaler HS * lactic acid topical BID * albuterol inhaler 2 Puffs BID prn breathing * albuterol nebulizer QID PRN breathing * metoprolol 200 mg PO daily * Risedronate 35 mg PO Q7 days * Flonase nasal spray 2 spray's each nare daily * prevident 5000 amiable Pro apply topically dental HS * atorvastatin 80 mg PO HS * Lantus insulin 35 unit subacute BID * aspirin 81 mg PO QHS * calcium carbonate/vitamin D PO daily * Cetirizine 5 mg PO daily * hydrochlorothiazide 12.5 mg PO daily . Current Medications Medications (Trade) Dose Ordered Sig/Steve Route Start Time Stop Time Status Last Admin (NS Flush) 2 ml UNSCH PRN IV FLUSH 02/24/17 22:00 03/11/17 09:27 (NS Flush) 2 ml BID IV FLUSH 02/25/17 09:00 03/11/17 09:27 (Narcan Inj) 0.4 mg UNSCH PRN IV 02/24/17 22:00 (Mucinex Er) 600 mg BID PO 02/25/17 13:00 Hold 02/25/17 20:51 (Tessalon) 200 mg Q8H PRN PO 02/25/17 13:00 Hold (Lasix Inj) 40 mg BID@09,18 IV PUSH 02/25/17 18:00 Hold 02/25/17 17:44 (Ecotrin Ec) 81 mg HS PO 02/25/17 21:00 03/10/17 21:15 (Lipitor) 80 mg HS PO 02/25/17 21:00 03/10/17 21:15 (Symbicort 160-4.5 Inh) 2 puff BID INH 02/25/17 21:00 Hold 02/25/17 20:51 (Toprol Xl) 200 mg DAILY PO 02/26/17 09:00 Hold Chlorhexidine Gluconate 15 ml 15 ml BID@08,20 MT 02/26/17 08:00 03/11/17 09:27 (NS 1000 ml Inj) 1,000 ml @ 84 mls/hr [id number] IV 02/26/17 01:18 Hold 02/26/17 01:18 (Tylenol) 650 mg Q6H PRN PO 02/26/17 01:30 (Protonix Inj) 40 mg DAILY IV 02/26/17 09:00 03/11/17 09:26 (Zofran Inj) 4 mg Q6H PRN IV 02/26/17 01:30 (Colace) 100 mg BID PO 02/26/17 09:00 03/11/17 09:00 Miscellaneous Information 1 Q361D XX 02/26/17 01:30 02/26/17 01:30 (Chlorhexidine 2% Cloth) Taper DAILY@04 TOP 02/26/17 04:00 02/22/18 03:59 03/09/17 04:00 Chlorhexidine Gluconate 3 pack 3 pack UNSCH PRN TOP 02/26/17 01:30 Propofol 100 ml @ 0 mls/hr TITRATE IV 02/26/17 01:30 Hold 03/05/17 23:07 Fentanyl Citrate 250 ml @ 0 mls/hr TITRATE IV 02/26/17 03:00 03/11/17 09:22 Midazolam HCl 100 ml @ 0 mls/hr TITRATE IV 02/26/17 03:00 03/11/17 09:22 (Thiamine Inj/NS Inj) 101 ml @ 101 mls/hr DAILY IV 03/01/17 09:00 03/11/17 09:22 (Folate) 1 mg DAILY PO 03/01/17 09:00 03/10/17 09:00 (Theragran) 1 tab DAILY PO 03/01/17 09:00 03/11/17 09:23 (Senna Liq) 8.8 mg BID PO 02/28/17 21:00 03/11/17 09:24 (Lac-Hydrin 12% Lotion) 1 applic BID TOPICAL 02/28/17 21:00 03/11/17 09:28 (Beneprotein Powder) 1 pack TID G-TUBE 02/28/17 13:00 03/11/17 09:00 (Tears Naturale Opth Soln) 1 drop Q8HR EACH EYE 02/28/17 14:00 03/11/17 05:54 Glycerin 2 gm 2 gm BID PRN RECTAL 03/01/17 08:30 (Heparin-NS/Pf Inj) 500 ml @ 0 mls/hr Q0M IART 03/02/17 14:07 (D50w (Vial) Inj) 25 ml UNSCH PRN IV PUSH 03/03/17 08:45 (Glucagon Inj) 1 mg UNSCH PRN OTHER 03/03/17 08:45 Insulin Human Regular 1 1 Q4HR SQ 03/03/17 12:00 03/11/17 08:00 Piperacillin Sod/ Tazobactam Sod 50 ml @ 100 mls/hr Q6H IV 03/04/17 12:30 03/11/17 05:54 (NS 1000 ml Inj) 1,000 ml @ 0 mls/hr Q0M PRN IV 03/05/17 08:26 03/07/17 08:54 Heparin Sodium (Porcine) 8000 units 8,000 units UNSCH PRN IVF 03/05/17 08:30 Sodium Chloride 1,000 ml @ 200 mls/hr Q5H PRN IV 03/05/17 08:26 (NS 1000 ml Inj) 1,000 ml @ 0 mls/hr Q0M PRN IV 03/05/17 08:26 (Mannitol Inj) 12.5 gm UNSCH PRN IV 03/05/17 08:30 03/10/17 11:00 (Albumin 25% Inj) 25 gm UNSCH PRN IV 03/05/17 08:30 03/10/17 13:11 (NS Flush) 5 ml UNSCH PRN IV FLUSH 03/05/17 08:30 (Heparin Inj) UNSCH PRN .XX 03/05/17 08:30 03/10/17 13:15 (Gentamicin (Dialysis) Inj) 20 mg UNSCH PRN IV 03/05/17 08:30 03/10/17 13:15 (Zofran Inj) 4 mg UNSCH PRN IV 03/05/17 08:30 (Tylenol) 650 mg UNSCH PRN PO 03/05/17 08:30 (Benadryl) 25 mg UNSCH PRN PO 03/05/17 08:30 (Nitrostat Sl) 0.4 mg UNSCH PRN SL 03/05/17 08:30 (Catapres) 0.1 mg UNSCH PRN PO 03/05/17 08:30 (Gelfoam 12 Mm/7 Mm Top) 1 foam UNSCH PRN TOP 03/05/17 08:30 Metoclopramide HCl 5 mg 5 mg Q8HR IV PUSH 03/06/17 08:30 03/11/17 05:55 (Levaquin 500 Mg Premix Inj) 100 ml @ 100 mls/hr Q48H IV 03/08/17 16:00 03/10/17 15:09 (Apresoline Inj) 5 mg Q4H IV PUSH 03/08/17 13:15 03/10/17 09:15 (NS Flush) DAILY IVF 03/09/17 09:00 03/11/17 09:27 (NS Flush) UNSCH PRN IVF 03/08/17 12:15 03/11/17 09:26 (Cordarone) 400 mg Q12HR PO 03/08/17 21:00 03/11/17 09:25 (Phoslo) 2,001 mg TID PO 03/09/17 13:00 03/11/17 09:25 Methylprednisolone Sodium Succinate 20 mg 20 mg DAILY IV PUSH 03/10/17 09:00 03/11/17 09:25 (Bactrim Inj/D5W 1000 ml Inj) 1,050 ml @ 350 mls/hr UNSCH PRN IV 03/11/17 09:00 03/11/17 03:14 (Levemir Inj) 55 units Q12HR SQ 03/10/17 21:00 03/11/17 09:25 . Family History Per EMR review: Reports his father had arrhythmias. Reports mother had coronary artery disease. . Substance Use Tobacco: Quit smoking in 1999. Alcohol: Daily alcohol use. Prescription med abuse: none. Illicits: none. . Psychosocial History From [place]. [place] from [place] to [place], [place] for winter for the past 3 years. Was in the during [place] (left 3 days after he got ). for 55 years to [place]. They have 3 daughters (Rachelle, Marysol and Christine). 3 grandsons and 2 sons-in-law. 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 He and his were supposed to be returning to [place] March 16. . Spiritual/Cultural Factors Mormon, request molder helper visit on 03/12/17 family would like to be present. . Living Will: Never completed Health Care Surrogate: Never completed Durable Power of Lead Simulation Modeling Engineer: Never completed Health Care Surrogate(s): Patient is incapacitated, uncertain if he will regain capacity. According to [place] statutes, health care proxy decision-making falls to the patient's spouse. . Today's verbally stated goals: Patient incapacitated, unable to participate in healthcare decisions at this time. Family/friends goals: Met with family including and 3 daughters. Family has a good understanding of current medical condition, prognosis and upcoming treatment decisions including tracheostomy/PEG tube. Family elects NO CODE and are considering transition to comfort focused care with withdrawal of life support, they need some time to talk as a family before making a final decision. . Ethical and Legal Issues Patient is incapacitated, uncertain if he will regain capacity. According to [place] statutes, health care proxy decision-making falls to the patient's spouse. . Physical Exam Vital Signs Date Time Temp Pulse Resp B/P Pulse Ox O2 Delivery O2 Flow Rate FiO2 03/11/17 07:21 100 60 03/11/17 06:30 100 03/11/17 06:00 91 03/11/17 04:32 97 60 03/11/17 04:00 96 03/11/17 04:00 98.6 96 18 140/75 94 03/11/17 04:00 60 03/11/17 02:00 87 03/11/17 01:21 98 60 03/11/17 01:20 60 03/11/17 00:00 65 03/11/17 00:00 99.2 92 18 101/62 96 03/11/17 00:00 92 03/10/17 22:23 96 70 03/10/17 22:00 91 03/10/17 22:00 70 03/10/17 20:01 80 03/10/17 20:00 100 03/10/17 20:00 100.3 128 18 92/56 98 03/10/17 20:00 128 03/10/17 19:29 98 100 03/10/17 19:10 99 100 03/10/17 18:00 102 03/10/17 16:00 60 03/10/17 16:00 97.9 95 15 84/51 94 03/10/17 16:00 95 03/10/17 15:25 88 65 03/10/17 14:00 109 03/10/17 12:00 60 03/10/17 12:00 112 03/10/17 12:00 98.4 112 15 102/67 99 03/10/17 11:46 98 70 03/10/17 10:35 90 100 03/10/17 10:00 80 03/10/17 03/11/17 19:00 07:00 Intake Total 714 ml 3408 ml Output Total 2520 ml 605.0 ml Balance -1806 ml 2803.0 ml IV Total 473 ml 2080 ml Tube Feeding 241 ml 858 ml Packed Cells 350 ml Other 120 ml Output Urine Total 20 ml 45 ml Stool Total 560 ml Tube Feeding Residual Discard 0 ml Hemodialysis 2500 ml # Bowel Movements 3 Exam CONSTITUTIONAL/GENERAL: This is an adequately nourished patient, sedated on mechanical ventilation TUBES/LINES/DRAINS: ETT, OG, right IJ central line, left vast calf, Barrios catheter, rectal tube, SCD's SKIN: No jaundice, rashes, or lesions. Ecchymoses on upper extremities. Skin temperature appropriate. Not diaphoretic. HEAD: Atraumatic. Normocephalic. EYES: Eyes closed. ENT: Hard of hearing. Nose without bleeding or purulent drainage. Throat difficult to visualize secondary tubes. NECK: Trachea midline. CARDIOVASCULAR: Regular rate and rhythm without murmurs, gallops, or rubs. Unable to assess JVD given central line/ vas-cath placement. Peripheral pulses symmetric. RESPIRATORY/CHEST: Symmetric, unlabored respirations on vent. Bilateral scattered crackles. GASTROINTESTINAL: Abdomen soft, nondistended. No guarding. Bowel sounds hypoactive. Rectal tube for liquid stool. GENITOURINARY: Without palpable bladder distension. Barrios catheter in place. MUSCULOSKELETAL: Extremities with edema. No mottling or clubbing. LYMPHATICS: No palpable cervical or supraclavicular adenopathy. NEUROLOGICAL: sedated. PSYCHIATRIC: sedated. . Diagnostic Tests Laboratory Laboratory Tests Test 03/08/17 03/09/17 03/10/17 03/10/17 14:30 05:00 03:15 05:25 Hemoglobin 8.8 GM/DL 9.9 GM/DL 8.2 GM/DL 8.1 GM/DL (13.0-17.0) (13.0-17.0) (13.0-17.0) (13.0-17.0) Hematocrit 26.1 % 30.3 % 23.4 % 23.4 % (39.0-51.0) (39.0-51.0) (39.0-51.0) (39.0-51.0) White Blood Count 15.0 TH/MM3 10.6 TH/MM3 10.1 TH/MM3 (4.0-11.0) (4.0-11.0) (4.0-11.0) Red Blood Count 3.43 MIL/MM3 2.65 MIL/MM3 2.64 MIL/MM3 (4.50-5.90) (4.50-5.90) (4.50-5.90) Mean Corpuscular Volume 88.3 FL 88.0 FL 88.9 FL (80.0-100.0) (80.0-100.0) (80.0-100.0) Mean Corpuscular Hemoglobin 28.9 PG 30.9 PG 30.6 PG (27.0-34.0) (27.0-34.0) (27.0-34.0) Mean Corpuscular Hemoglobin 32.8 % 35.1 % 34.5 % Concent (32.0-36.0) (32.0-36.0) (32.0-36.0) Red Cell Distribution Width 15.1 % 14.7 % 14.9 % (11.6-17.2) (11.6-17.2) (11.6-17.2) Platelet Count 142 TH/MM3 121 TH/MM3 121 TH/MM3 (150-450) (150-450) (150-450) Mean Platelet Volume 9.8 FL 9.9 FL 9.7 FL (7.0-11.0) (7.0-11.0) (7.0-11.0) Neutrophils (%) (Auto) 95.6 % 94.0 % 94.2 % (16.0-70.0) (16.0-70.0) (16.0-70.0) Lymphocytes (%) (Auto) 1.3 % 1.7 % 1.6 % (9.0-44.0) (9.0-44.0) (9.0-44.0) Monocytes (%) (Auto) 2.8 % (0.0-8.0) 4.1 % (0.0-8.0) 4.0 % (0.0-8.0) Eosinophils (%) (Auto) 0.0 % (0.0-4.0) 0.0 % (0.0-4.0) 0.0 % (0.0-4.0) Basophils (%) (Auto) 0.3 % (0.0-2.0) 0.2 % (0.0-2.0) 0.2 % (0.0-2.0) Neutrophils # (Auto) 14.3 TH/MM3 10.0 TH/MM3 9.5 TH/MM3 (1.8-7.7) (1.8-7.7) (1.8-7.7) Lymphocytes # (Auto) 0.2 TH/MM3 0.2 TH/MM3 0.2 TH/MM3 (1.0-4.8) (1.0-4.8) (1.0-4.8) Monocytes # (Auto) 0.4 TH/MM3 0.4 TH/MM3 0.4 TH/MM3 (0-0.9) (0-0.9) (0-0.9) Eosinophils # (Auto) 0.0 TH/MM3 0.0 TH/MM3 0.0 TH/MM3 (0-0.4) (0-0.4) (0-0.4) Basophils # (Auto) 0.0 TH/MM3 0.0 TH/MM3 0.0 TH/MM3 (0-0.2) (0-0.2) (0-0.2) CBC Comment DIFF FINAL DIFF FINAL DIFF FINAL Differential Comment Sodium Level 137 MEQ/L 139 MEQ/L 139 MEQ/L (136-145) (136-145) (136-145) Potassium Level 5.3 MEQ/L 5.1 MEQ/L 5.4 MEQ/L (3.5-5.1) (3.5-5.1) (3.5-5.1) Chloride Level 95 MEQ/L 98 MEQ/L 98 MEQ/L (98-107) (98-107) (98-107) Carbon Dioxide Level 26.6 MEQ/L 29.1 MEQ/L 28.1 MEQ/L (21.0-32.0) (21.0-32.0) (21.0-32.0) Anion Gap 15 MEQ/L (5-15) 12 MEQ/L (5-15) 13 MEQ/L (5-15) Blood Urea Nitrogen 149 MG/DL 122 MG/DL 129 MG/DL (7-18) (7-18) (7-18) Creatinine 6.31 MG/DL 5.29 MG/DL 5.56 MG/DL (0.60-1.30) (0.60-1.30) (0.60-1.30) Estimat Glomerular Filtration 9 ML/MIN (>89) 11 ML/MIN (>89) 10 ML/MIN (>89) Rate Random Glucose 243 MG/DL 205 MG/DL 226 MG/DL (74-106) (74-106) (74-106) Calcium Level 9.0 MG/DL 8.1 MG/DL 8.3 MG/DL (8.5-10.1) (8.5-10.1) (8.5-10.1) Phosphorus Level 9.3 MG/DL 8.6 MG/DL 7.9 MG/DL (2.5-4.9) (2.5-4.9) (2.5-4.9) Magnesium Level 3.2 MG/DL 2.9 MG/DL 2.9 MG/DL (1.5-2.5) (1.5-2.5) (1.5-2.5) Albumin 3.3 GM/DL 3.3 GM/DL (3.4-5.0) (3.4-5.0) Total Bilirubin 0.6 MG/DL (0.2-1.0) Aspartate Amino Transf 11 U/L (15-37) (AST/SGOT) Alanine Aminotransferase 29 U/L (12-78) (ALT/SGPT) Alkaline Phosphatase 45 U/L (45-117) Total Protein 5.8 GM/DL (6.4-8.2) Test 03/10/17 03/10/17 03/10/17 03/10/17 09:02 14:50 16:08 22:40 Blood Type AB POSITIVE Crossmatch Leukocyte-Reduced Leukocyte-Reduced Red Blood Red Blood Cells Cells Blood Bank Comment Hemoglobin 8.5 GM/DL 9.4 GM/DL (13.0-17.0) (13.0-17.0) Hematocrit 25.2 % 27.5 % (39.0-51.0) (39.0-51.0) Potassium Level 4.4 MEQ/L (3.5-5.1) Test 03/11/17 03:35 White Blood Count 8.3 TH/MM3 (4.0-11.0) Red Blood Count 3.31 MIL/MM3 (4.50-5.90) Hemoglobin 9.7 GM/DL (13.0-17.0) Hematocrit 29.1 % (39.0-51.0) Mean Corpuscular Volume 87.9 FL (80.0-100.0) Mean Corpuscular Hemoglobin 29.3 PG (27.0-34.0) Mean Corpuscular Hemoglobin 33.3 % Concent (32.0-36.0) Red Cell Distribution Width 16.1 % (11.6-17.2) Platelet Count 112 TH/MM3 (150-450) Mean Platelet Volume 10.1 FL (7.0-11.0) Neutrophils (%) (Auto) 93.7 % (16.0-70.0) Lymphocytes (%) (Auto) 1.8 % (9.0-44.0) Monocytes (%) (Auto) 4.2 % (0.0-8.0) Eosinophils (%) (Auto) 0.1 % (0.0-4.0) Basophils (%) (Auto) 0.2 % (0.0-2.0) Neutrophils # (Auto) 7.8 TH/MM3 (1.8-7.7) Lymphocytes # (Auto) 0.2 TH/MM3 (1.0-4.8) Monocytes # (Auto) 0.4 TH/MM3 (0-0.9) Eosinophils # (Auto) 0.0 TH/MM3 (0-0.4) Basophils # (Auto) 0.0 TH/MM3 (0-0.2) CBC Comment DIFF FINAL Differential Comment Sodium Level 141 MEQ/L (136-145) Potassium Level 5.5 MEQ/L (3.5-5.1) Chloride Level 98 MEQ/L (98-107) Carbon Dioxide Level 29.4 MEQ/L (21.0-32.0) Anion Gap 14 MEQ/L (5-15) Blood Urea Nitrogen 117 MG/DL (7-18) Creatinine 4.98 MG/DL (0.60-1.30) Estimat Glomerular Filtration 11 ML/MIN (>89) Rate Random Glucose 257 MG/DL (74-106) Calcium Level 8.8 MG/DL (8.5-10.1) Phosphorus Level 8.0 MG/DL (2.5-4.9) Albumin 3.3 GM/DL (3.4-5.0) Result Diagram: 03/11/17 0335 03/11/17 0335 Microbiology Microbiology Date/Time Procedure Status Source Growth 03/07/17 17:20 Gram Stain - Final Complete Bronchial Washings Bronchial 03/07/17 17:20 Bronchial Culture - Final Complete Bronchial Washings Bronchial LIGHT GROWTH NORMAL RESPIRATORY JEN 03/07/17 17:20 Fungal Smear - Final Resulted Bronchial Washings Bronchial NO FUNGAL ELEMENTS SEEN. 03/07/17 17:20 Fungal Culture - Preliminary Resulted Bronchial Washings Bronchial 03/07/17 17:20 Acid Fast Stain - Final Resulted Bronchial Washings Bronchial NO ACID FAST BACILLI SEEN 03/07/17 17:20 Mycobacterial Culture Resulted Bronchial Washings Bronchial Pending . Imaging Last Impressions Chest X-Ray 03/10/17 0000 Signed Impressions: Service Date/Time: Friday, March 10, 2017 20:19 - CONCLUSION: Stable chest. No pneumothorax. Neto Duenas MD Abdomen/Pelvis CT 03/10/17 0000 Signed Impressions: Service Date/Time: Friday, March 10, 2017 10:20 - CONCLUSION: 1. There is no retroperitoneal hematoma. 2. Bilateral pleural effusions right greater than left. 3. A nonspecific, nonobstructed bowel gas pattern most consistent with a mild ileus and/or gastroenteritis. Raul Craig MD Abdomen X-Ray 03/07/17 0000 Signed Impressions: Service Date/Time: Tuesday, March 07, 2017 13:26 - CONCLUSION: No acute disease. Bg Faust MD Thoracentesis 03/03/17 0000 Signed Impressions: Service Date/Time: Friday, March 03, 2017 14:09 - CONCLUSION: Uncomplicated CT-guided right thoracentesis. Cash Cowan MD Chest CT 03/02/17 0000 Signed Impressions: Service Date/Time: Thursday, March 02, 2017 11:42 - CONCLUSION: Large bilateral pleural effusions and bibasilar consolidation and/or compressive collapse not present on the study from 2015. Travis Nguyen MD Lower Extremity Ultrasound 02/27/17 0000 Signed Impressions: Service Date/Time: Monday, February 27, 2017 09:13 - CONCLUSION: Normal examination. Evaristo Massey MD Head CT 02/24/17 0000 Signed Impressions: Service Date/Time: Friday, February 24, 2017 18:59 - CONCLUSION: 1. No acute hemorrhage or mass effect. 2. Acute sinusitis in the left maxillary sinus. Raul Craig MD Cervical Spine MRI 02/24/17 0000 Signed Impressions: Service Date/Time: Friday, February 24, 2017 22:46 - CONCLUSION: 1. Small central protrusion at C4-5 without canal stenosis. 2. Small central protrusion at C3-4 with minimal extruded component. 3. Mild broad-based disc bulges at C5- 6 and C6-7 levels without canal stenosis. Neto Duenas MD Cervical Spine CT 02/24/17 0000 Signed Impressions: Service Date/Time: Friday, February 24, 2017 19:02 - CONCLUSION: 1. Moderate narrowing of left neural foramina at the C3-4 level secondary to hypertrophic change involving the facet joint. 2. Mild degenerative change at the C5-6 and C6-7 levels. 3. Mild disc osteophyte complex at C5-6 with mild narrowing of the neural foramina. Raul Craig MD Brain MRI 02/24/17 0000 Signed Impressions: Service Date/Time: Friday, February 24, 2017 22:46 - CONCLUSION: 1. No acute intracranial abnormality. 2. Left maxillary sinus disease. 3. No acute infarction. Neto Duenas MD . Procedures * 03/10/17 Bronchoscopy * 03/08/17 right IJ central line placement * 03/07/17 bronchoscopy * 03/05/17 left IJ Vas-cath placement * 03/05/17 left thoracentesis with removal of 1000 mL pleural fluid * 02/26/17 - [place]- Luisa catheter placement. * 02/26/17 - Right IJ central line placement. * 02/26/17- Intubation * 02/26/17 CODE BLUE . Patient/Family Conference Present at Family Conference: Met with ([place]) and 3 daughters (Rachelle, Macrina and Christine). Also present Shira Galicia LCSW and LOLA Edwards. Family Conference Time (mins): 60 Family Conference Location: Consult Room Issues Discussed: * Palliative care role, purpose, approach * Additional medical, psychosocial, and spiritual history * Patients general health, functional status, and cognitive changes in the months leading up to the current hospitalization * Patient/family understanding of the current medical problems * Patient/family understanding of prognosis * Patients goals of care as best understood from advance directives and/or conversations and/or values * Current medical treatment options and benefits/burdens of those options * Likely scenarios comparing ongoing aggressive care with a transition to comfort measures only * CODE STATUS family elects NO CODE * Questions answered to the best of my ability * Palliative care contact information provided In summary, patient's family elects NO CODE status. They have a good understanding of current medical conditions, prognosis and upcoming treatment decisions including tracheostomy/PEG tube placement. Lengthy review of options including continued aggressive care versus transition to comfort. After lengthy discussion family seems to be leaning toward transition to comfort focused care with withdrawal of life support based on patient previous stated wishes in speaking with his cousin. Family wishes for some time to discuss further and have some time as a family to make the best decision for their loved one under the circumstances. Palliative care number provided. Family requests molder helper support to be coordinated on visit 03/12/17. Palliative care will assist with coordination of molder helper visit once family notifies of time will be visiting tomorrow. . Assessment and Plan Disease Oriented Problem List: (1) Acute CHF (2) Shock (3) Atrial fibrillation (4) Acute renal failure superimposed on chronic kidney disease (5) CHF exacerbation (6) Type 2 diabetes mellitus (7) NSTEMI (non-ST elevated myocardial infarction) (8) Pneumonia (9) Bilateral lower leg cellulitis (10) COPD exacerbation Symptom Scale: (1) Dyspnea 0-10 Scale: Unable to quantify Comment: Underlying COPD, remains on mechanical ventilation. (2) Pain 0-10 Scale: Unable to quantify Comment: Potential sources of pain include NSTEMI, peripheral neuropathy, general debility, prolonged hospitalization, mechanical ventilation another tubes, chronic back pain. On fentanyl 250 g per hour appears comfortable during my visit today. . Pertinent Non-Medical Issues Psychosocial: to Noni for 55 years. They have 3 adult daughters all here from [facility] (2 from [place] and 1 lives in [place], [place]) Spiritual: [employer] rhonda., Requests molder helper visit for last rights on 03/12/17. Care to coordinate. Legal: Patient is incapacitated, uncertain if he will regain capacity. According to [place] statutes, health care proxy decision-making falls to the patient's spouse. Ethical issues impacting care: No known concerns at this time. . Important Contacts * Noni Stokes, /HCP: [phone] * Rachelle, daughter: [phone] lives in [place] * Macrina, daughter: [phone] lives in [facility] * Christine, daughter: [phone] lives in [place] . Prognosis Mr. Stokes is a 76-year-old male with multiple medical comorbidities including underlying COPD, coronary artery disease, uncontrolled diabetes he's admitted with NSTEMI (not a candidate for cardiac intervention at this time given current condition), cardiomyopathy, respiratory failure on mechanical ventilation, pneumonia, acute on chronic renal failure now on hemodialysis. Overall prognosis poor for meaningful recovery. . Code Status: No Code Plan * Decision Maker: Patient is incapacitated, uncertain if he will regain capacity. According to [place] statutes, health care proxy decision-making falls to the patient's spouse. * NO CODE * Palliative care met with family including and 3 daughters. Family has a good understanding of current medical condition, prognosis and upcoming treatment decisions including tracheostomy/PEG tube. Family elects NO CODE and are considering transition to comfort focused care with withdrawal of life support, they need some time to talk as a family before making a final decision. * [facility], requests molder helper to visit 03/12/17 to be coordinated when family visits. Palliative care will assist with coordination. * SYMPTOMS: Pain: potential sources of pain include NSTEMI, peripheral neuropathy, general debility, prolonged hospitalization, mechanical ventilation another tubes, chronic back pain. On fentanyl 250 g per hour appears comfortable during my visit today. Dyspnea: sedated fentanyl/Versed on mechanical ventilation, FI 02 40% PEEP 10. No new medication recommendations at this time. * Palliative care number provided. * Palliative care will continue to follow throughout hospital course to assist with symptom management and clarification of goals as needed. . Time Spent Total Floor Time (mins): 90 Face to Face Time (mins): 75 >50% Counseling/Coord of Care: Yes Thank you for the opportunity to participate in the care of Mr. Stokes. Attestation To help prompt me to consider important information that might be impacting today's encounter and assessment, information from prior notes written by myself or my colleagues may have been "brought forward" into today's note. My signature on this note, however, is an attestation that I personally performed the exam, history, and/or decision-making noted today, and, unless otherwise indicated, the interactions with patient, family, and staff as well as the review of records all occurred today. I also attest that the listed assessment and stated plan reflect my best clinical judgment today based on the combination of historical information, prior notes, and today's exam/ interactions. When time spent is documented, it refers only to time spent today by the signer, or if indicated, combined time spent today by collaborating physician/nurse practitioner. LEFTY CASTILLO Mar 11, 2017 10:57
--- NOTE | 2017-03-11 12:21 | HHI.IDPN ---
Note Infectious Disease Note Patient is on the vent. 40% FIO2. SBP 82 20ml urine output. Unresponsive. Afib. Afebrile. Family has elected to make patient DNR. PAST MEDICAL HISTORY 1. Diabetes mellitus. 2. Hypertension. 3. COPD. 4. CHF. 5. Coronary artery disease. 6. Sleep apnea. 7. Right knee surgery. 8. Hemorrhoidectomy. 9. Fistula repair. 10. Left wrist surgery. 11. Tonsillectomy. ALLERGIES ZYBAN. TERAZOSIN, HYDROCODONE, BUPROPION. Current Medications Medications (Trade) Dose Ordered Sig/Steve Route PRN Reason Start Time Stop Time Status Last Admin Dose Admin Sodium Chloride (NS Flush) 2 ml UNSCH PRN IV FLUSH FLUSH AFTER USING IV ACCESS 02/24/17 22:00 03/11/17 09:27 Sodium Chloride (NS Flush) 2 ml BID IV FLUSH 02/25/17 09:00 03/11/17 09:27 Naloxone HCl (Narcan Inj) 0.4 mg UNSCH PRN IV SEE LABEL COMMENTS 02/24/17 22:00 Guaifenesin (Mucinex Er) 600 mg BID PO 02/25/17 13:00 Hold 02/25/17 20:51 Benzonatate (Tessalon) 200 mg Q8H PRN PO COUGH 02/25/17 13:00 Hold Furosemide (Lasix Inj) 40 mg BID@09,18 IV PUSH 02/25/17 18:00 Hold 02/25/17 17:44 Aspirin (Ecotrin Ec) 81 mg HS PO 02/25/17 21:00 03/10/17 21:15 Atorvastatin Calcium (Lipitor) 80 mg HS PO 02/25/17 21:00 03/10/17 21:15 Budesonide/ Formoterol Fumarate (Symbicort 160-4.5 Inh) 2 puff BID INH 02/25/17 21:00 Hold 02/25/17 20:51 Metoprolol Succinate (Toprol Xl) 200 mg DAILY PO 02/26/17 09:00 Hold Chlorhexidine Gluconate 15 ml 15 ml BID@08,20 MT 02/26/17 08:00 03/11/17 09:27 Sodium Chloride (NS 1000 ml Inj) 1,000 ml @ 84 mls/hr [id number] IV 02/26/17 01:18 Hold 02/26/17 01:18 Acetaminophen (Tylenol) 650 mg Q6H PRN PO PAIN 1-10 AND/OR FEVER >101F 02/26/17 01:30 Pantoprazole Sodium (Protonix Inj) 40 mg DAILY IV 02/26/17 09:00 03/11/17 09:26 Ondansetron HCl (Zofran Inj) 4 mg Q6H PRN IV NAUSEA OR VOMITING 02/26/17 01:30 Miscellaneous Information 1 [id number] XX 02/26/17 01:30 02/26/17 01:30 Chlorhexidine Gluconate (Chlorhexidine 2% Cloth) Taper DAILY@04 TOP 02/26/17 04:00 02/22/18 03:59 03/09/17 04:00 Chlorhexidine Gluconate 3 pack 3 pack UNSCH PRN TOP HYGIENIC CARE 02/26/17 01:30 Propofol 100 ml @ 0 mls/hr TITRATE IV 02/26/17 01:30 Hold 03/05/17 23:07 Fentanyl Citrate 250 ml @ 0 mls/hr TITRATE IV 02/26/17 03:00 03/11/17 09:22 Midazolam HCl 100 ml @ 0 mls/hr TITRATE IV 02/26/17 03:00 03/11/17 09:22 Thiamine HCl/ Sodium Chloride (Thiamine Inj/NS Inj) 101 ml @ 101 mls/hr DAILY IV 03/01/17 09:00 03/11/17 09:22 Folic Acid (Folate) 1 mg DAILY PO 03/01/17 09:00 03/11/17 09:00 Multivitamins (Theragran) 1 tab DAILY PO 03/01/17 09:00 03/11/17 09:23 Sennosides (Senna Liq) 8.8 mg BID PO 02/28/17 21:00 03/11/17 09:24 Lactic Acid (Lac-Hydrin 12% Lotion) 1 applic BID TOPICAL 02/28/17 21:00 03/11/17 09:28 Protein (Beneprotein Powder) 1 pack TID G-TUBE 02/28/17 13:00 03/11/17 09:00 Artificial Tears (Tears Naturale Opth Soln) 1 drop Q8HR EACH EYE 02/28/17 14:00 03/11/17 05:54 Glycerin 2 gm 2 gm BID PRN RECTAL CONSTIPATION 03/01/17 08:30 Heparin Sodium/ Sodium Chloride (Heparin-NS/Pf Inj) 500 ml @ 0 mls/hr Q0M IART 03/02/17 14:07 Dextrose (D50w (Vial) Inj) 25 ml UNSCH PRN IV PUSH HYPOGLYCEMIA-SEE COMMENTS 03/03/17 08:45 Glucagon (Glucagon Inj) 1 mg UNSCH PRN OTHER HYPOGLYCEMIA-SEE COMMENTS 03/03/17 08:45 Insulin Human Regular 1 1 Q4HR SQ 03/03/17 12:00 03/11/17 08:00 Piperacillin Sod/ Tazobactam Sod 50 ml @ 100 mls/hr Q6H IV 03/04/17 12:30 03/11/17 05:54 Sodium Chloride (NS 1000 ml Inj) 1,000 ml @ 0 mls/hr Q0M PRN IV For Prime & Rinse Back 03/05/17 08:26 03/07/17 08:54 Heparin Sodium (Porcine) 8000 units 8,000 units UNSCH PRN IVF WITH DIALYSIS 03/05/17 08:30 Sodium Chloride 1,000 ml @ 200 mls/hr Q5H PRN IV WITH DIALYSIS 03/05/17 08:26 Sodium Chloride (NS 1000 ml Inj) 1,000 ml @ 0 mls/hr Q0M PRN IV WITH DIALYSIS 03/05/17 08:26 Mannitol (Mannitol Inj) 12.5 gm UNSCH PRN IV WITH DIALYSIS 03/05/17 08:30 03/10/17 11:00 Albumin Human (Albumin 25% Inj) 25 gm UNSCH PRN IV WITH DIALYSIS 03/05/17 08:30 03/10/17 13:11 Sodium Chloride (NS Flush) 5 ml UNSCH PRN IV FLUSH WITH DIALYSIS 03/05/17 08:30 Heparin Sodium (Porcine) (Heparin Inj) UNSCH PRN .XX WITH DIALYSIS 03/05/17 08:30 03/10/17 13:15 Gentamicin Sulfate (Gentamicin (Dialysis) Inj) 20 mg UNSCH PRN IV WITH DIALYSIS 03/05/17 08:30 03/10/17 13:15 Ondansetron HCl (Zofran Inj) 4 mg UNSCH PRN IV WITH DIALYSIS 03/05/17 08:30 Acetaminophen (Tylenol) 650 mg UNSCH PRN PO for headach, pain, temp > 101F 03/05/17 08:30 Diphenhydramine HCl (Benadryl) 25 mg UNSCH PRN PO for hives/itching/anaphylaxis 03/05/17 08:30 Nitroglycerin (Nitrostat Sl) 0.4 mg UNSCH PRN SL CHEST PAIN 03/05/17 08:30 Clonidine (Catapres) 0.1 mg UNSCH PRN PO for BP > 180/100 X 2 readings 03/05/17 08:30 Gelatin (Gelfoam 12 Mm/7 Mm Top) 1 foam UNSCH PRN TOP SEE LABEL COMMENTS 03/05/17 08:30 Metoclopramide HCl 5 mg 5 mg Q8HR IV PUSH 03/06/17 08:30 03/11/17 05:55 Levofloxacin/ Dextrose (Levaquin 500 Mg Premix Inj) 100 ml @ 100 mls/hr Q48H IV 03/08/17 16:00 03/10/17 15:09 Hydralazine HCl (Apresoline Inj) 5 mg Q4H IV PUSH 03/08/17 13:15 03/10/17 09:15 Sodium Chloride (NS Flush) DAILY IVF 03/09/17 09:00 03/11/17 09:27 Sodium Chloride (NS Flush) UNSCH PRN IVF SEE PROTOCOL 03/08/17 12:15 03/11/17 09:26 Amiodarone HCl (Cordarone) 400 mg Q12HR PO 03/08/17 21:00 03/11/17 09:25 Calcium Acetate (Phoslo) 2,001 mg TID PO 03/09/17 13:00 03/11/17 09:25 Methylprednisolone Sodium Succinate 20 mg 20 mg DAILY IV PUSH 03/10/17 09:00 03/11/17 09:25 Trimethoprim/ Sulfamethoxazole/ Dextrose (Bactrim Inj/D5W 1000 ml Inj) 1,050 ml @ 350 mls/hr UNSCH PRN IV PRE DIALYSIS ON DIALYIS DAYS 03/11/17 09:00 03/11/17 03:14 Docusate Sodium (Colace Liq) 100 mg BID PO 03/11/17 21:00 Insulin Detemir (Levemir Inj) 65 units Q12HR SQ 03/11/17 21:00 SOCIAL HISTORY Unable to obtain. History reported on the records indicate daily alcohol use. No tobacco. No illicit drugs. FAMILY HISTORY Unable to obtain. REVIEW OF SYSTEMS Unable to obtain. OBJECTIVE: Vital Signs Date Time Temp Pulse Resp B/P Pulse Ox O2 Delivery O2 Flow Rate FiO2 03/11/17 10:00 96 03/11/17 09:59 93 50 03/11/17 08:00 97.4 85 18 96/51 93 03/11/17 08:00 85 03/11/17 08:00 40 03/11/17 07:21 100 60 03/11/17 06:30 100 03/11/17 06:00 91 03/11/17 04:32 97 60 03/11/17 04:00 96 03/11/17 04:00 98.6 96 18 140/75 94 03/11/17 04:00 60 03/11/17 02:00 87 03/11/17 01:21 98 60 03/11/17 01:20 60 03/11/17 00:00 65 03/11/17 00:00 99.2 92 18 101/62 96 03/11/17 00:00 92 03/10/17 22:23 96 70 03/10/17 22:00 91 03/10/17 22:00 70 03/10/17 20:01 80 03/10/17 20:00 100 03/10/17 20:00 100.3 128 18 92/56 98 03/10/17 20:00 128 03/10/17 19:29 98 100 03/10/17 19:10 99 100 03/10/17 18:00 102 03/10/17 16:00 60 03/10/17 16:00 97.9 95 15 84/51 94 03/10/17 16:00 95 03/10/17 15:25 88 65 03/10/17 14:00 109 03/10/17 03/10/17 03/11/17 15:00 23:00 07:00 Intake Total 714 ml 1484 ml 1924 ml Output Total 2520 ml 385 ml 220 ml Balance -1806 ml 1099 ml 1704 ml IV Total 473 ml 662 ml 1418 ml Tube Feeding 241 ml 412 ml 446 ml Packed Cells 350 ml Other 60 ml 60 ml Output Urine Total 20 ml 25 ml 20 ml Stool Total 360 ml 200 ml Tube Feeding Residual Discard 0 ml 0 ml Hemodialysis 2500 ml # Bowel Movements 3 Laboratory Tests Test 03/10/17 03/10/17 03/10/17 03/10/17 03:15 05:25 14:50 22:40 White Blood Count 10.6 TH/MM3 10.1 TH/MM3 Red Blood Count 2.65 MIL/MM3 2.64 MIL/MM3 Hemoglobin 8.2 GM/DL 8.1 GM/DL 8.5 GM/DL 9.4 GM/DL Hematocrit 23.4 % 23.4 % 25.2 % 27.5 % Mean Corpuscular Volume 88.0 FL 88.9 FL Mean Corpuscular Hemoglobin 30.9 PG 30.6 PG Mean Corpuscular Hemoglobin 35.1 % 34.5 % Concent Red Cell Distribution Width 14.7 % 14.9 % Platelet Count 121 TH/MM3 121 TH/MM3 Mean Platelet Volume 9.9 FL 9.7 FL Neutrophils (%) (Auto) 94.0 % 94.2 % Lymphocytes (%) (Auto) 1.7 % 1.6 % Monocytes (%) (Auto) 4.1 % 4.0 % Eosinophils (%) (Auto) 0.0 % 0.0 % Basophils (%) (Auto) 0.2 % 0.2 % Neutrophils # (Auto) 10.0 TH/MM3 9.5 TH/MM3 Lymphocytes # (Auto) 0.2 TH/MM3 0.2 TH/MM3 Monocytes # (Auto) 0.4 TH/MM3 0.4 TH/MM3 Eosinophils # (Auto) 0.0 TH/MM3 0.0 TH/MM3 Basophils # (Auto) 0.0 TH/MM3 0.0 TH/MM3 CBC Comment DIFF FINAL DIFF FINAL Differential Comment Test 03/11/17 03:35 White Blood Count 8.3 TH/MM3 Red Blood Count 3.31 MIL/MM3 Hemoglobin 9.7 GM/DL Hematocrit 29.1 % Mean Corpuscular Volume 87.9 FL Mean Corpuscular Hemoglobin 29.3 PG Mean Corpuscular Hemoglobin 33.3 % Concent Red Cell Distribution Width 16.1 % Platelet Count 112 TH/MM3 Mean Platelet Volume 10.1 FL Neutrophils (%) (Auto) 93.7 % Lymphocytes (%) (Auto) 1.8 % Monocytes (%) (Auto) 4.2 % Eosinophils (%) (Auto) 0.1 % Basophils (%) (Auto) 0.2 % Neutrophils # (Auto) 7.8 TH/MM3 Lymphocytes # (Auto) 0.2 TH/MM3 Monocytes # (Auto) 0.4 TH/MM3 Eosinophils # (Auto) 0.0 TH/MM3 Basophils # (Auto) 0.0 TH/MM3 CBC Comment DIFF FINAL Differential Comment Laboratory Tests Test 03/10/17 03/10/17 03/10/17 03/11/17 03:15 05:25 14:50 03:35 Sodium Level 139 MEQ/L 139 MEQ/L 141 MEQ/L Potassium Level 5.1 MEQ/L 5.4 MEQ/L 4.4 MEQ/L 5.5 MEQ/L Chloride Level 98 MEQ/L 98 MEQ/L 98 MEQ/L Carbon Dioxide Level 29.1 MEQ/L 28.1 MEQ/L 29.4 MEQ/L Anion Gap 12 MEQ/L 13 MEQ/L 14 MEQ/L Blood Urea Nitrogen 122 MG/DL 129 MG/DL 117 MG/DL Creatinine 5.29 MG/DL 5.56 MG/DL 4.98 MG/DL Estimat Glomerular Filtration 11 ML/MIN 10 ML/MIN 11 ML/MIN Rate Random Glucose 205 MG/DL 226 MG/DL 257 MG/DL Calcium Level 8.1 MG/DL 8.3 MG/DL 8.8 MG/DL Phosphorus Level 8.6 MG/DL 7.9 MG/DL 8.0 MG/DL Magnesium Level 2.9 MG/DL 2.9 MG/DL Albumin 3.3 GM/DL 3.3 GM/DL 3.3 GM/DL Total Bilirubin 0.6 MG/DL Aspartate Amino Transf 11 U/L (AST/SGOT) Alanine Aminotransferase 29 U/L (ALT/SGPT) Alkaline Phosphatase 45 U/L Total Protein 5.8 GM/DL Microbiology Date/Time Procedure Status Source Growth 03/07/17 17:20 Gram Stain - Final Complete Bronchial Washings Bronchial 03/07/17 17:20 Bronchial Culture - Final Complete Bronchial Washings Bronchial LIGHT GROWTH NORMAL RESPIRATORY JEN 03/07/17 17:20 Acid Fast Stain - Final Resulted Bronchial Washings Bronchial NO ACID FAST BACILLI SEEN 03/07/17 17:20 Mycobacterial Culture Resulted Bronchial Washings Bronchial Pending 03/07/17 17:20 Fungal Smear - Final Resulted Bronchial Washings Bronchial NO FUNGAL ELEMENTS SEEN. 03/07/17 17:20 Fungal Culture - Preliminary Resulted Yeast Species IMAGING: Abdomen/Pelvis CT 4/25/17 0000 Signed Impressions: Service Date/Time: Friday, March 10, 2017 10:20 - CONCLUSION: 1. There is no retroperitoneal hematoma. 2. Bilateral pleural effusions right greater than left. 3. A nonspecific, nonobstructed bowel gas pattern most consistent with a mild ileus and/or gastroenteritis. Raul Craig MD Chest X-Ray 03/09/17 1600 Signed Impressions: Service Date/Time: Thursday, March 09, 2017 19:16 - CONCLUSION: Bilateral pulmonary air space disease again seen. Evaristo Massey MD Abdomen X-Ray 03/07/17 0000 Signed Impressions: Service Date/Time: Tuesday, March 07, 2017 13:26 - CONCLUSION: No acute disease. Bg Faust MD Thoracentesis 03/03/17 0000 Signed Impressions: Service Date/Time: Friday, March 03, 2017 14:09 - CONCLUSION: Uncomplicated CT-guided right thoracentesis. Cash Cowan MD Chest CT 03/02/17 0000 Signed Impressions: Service Date/Time: Thursday, March 02, 2017 11:42 - CONCLUSION: Large bilateral pleural effusions and bibasilar consolidation and/or compressive collapse not present on the study from 2015. Travis Nguyen MD Lower Extremity Ultrasound 02/27/17 0000 Signed Impressions: Service Date/Time: Monday, February 27, 2017 09:13 - CONCLUSION: Normal examination. Evaristo Massey MD Head CT 02/24/17 0000 Signed Impressions: Service Date/Time: Friday, February 24, 2017 18:59 - CONCLUSION: 1. No acute hemorrhage or mass effect. 2. Acute sinusitis in the left maxillary sinus. Raul Craig MD Cervical Spine MRI 02/24/17 0000 Signed Impressions: Service Date/Time: Friday, February 24, 2017 22:46 - CONCLUSION: 1. Small central protrusion at C4-5 without canal stenosis. 2. Small central protrusion at C3-4 with minimal extruded component. 3. Mild broad-based disc bulges at C5- 6 and C6-7 levels without canal stenosis. Neto Duenas MD Cervical Spine CT 02/24/17 0000 Signed Impressions: Service Date/Time: Friday, February 24, 2017 19:02 - CONCLUSION: 1. Moderate narrowing of left neural foramina at the C3-4 level secondary to hypertrophic change involving the facet joint. 2. Mild degenerative change at the C5-6 and C6-7 levels. 3. Mild disc osteophyte complex at C5-6 with mild narrowing of the neural foramina. Raul Craig MD Brain MRI 02/24/17 0000 Signed Impressions: Service Date/Time: Friday, February 24, 2017 22:46 - CONCLUSION: 1. No acute intracranial abnormality. 2. Left maxillary sinus disease. 3. No acute infarction. Neto Duenas MD PHYSICAL EXAMINATION GENERAL: On the ventilator. Unresponsive. HEENT: Head is atraumatic. Extraocular movements cannot be assessed. Oropharynx intubated. NECK: Supple. No mass or swelling. LUNGS: Coarse rhonchi bilateral. HEART: Irregular rate and rhythm without audible murmurs or rubs or gallops. ABDOMEN: Bowel sounds present, markedly distended. Soft. EXTREMITIES: No clubbing or cyanosis. 1-2+ edema of the upper extremities. No edema at the lower extremities. SKIN: No rash. Ecchymosis at the upper extremities. NEUROLOGIC: Unable to assess. IMPRESSION 1. Bilateral pneumonia. Positive sputum culture with Pseudomonas and yeast growing on the bronch. washing. 2. Acute respiratory failure. 3. Acute renal failure. 4. Leukocytosis. 5. Myocardial infarction in patient with low ejection fraction and also noted to have pulmonary hypertension. RECOMMENDATIONS 1. Continue Levaquin. 2. Continue piperacillin / Tazobactam. 3. Bactrim intravenous for Stenotrophomonas. To be given prior to dialysis. Adjusted for renal function. 4. Monitor clinical response. Eagar poor with multiorgan failure. Cleveland Ford MD Mar 11, 2017 12:21 is a 76-year-old white male who was admitted to the hospital after presenting to emergency department on 02/24. The patient presented with neuro symptoms including involuntary movements and tingling of his upper extremities. The patient was admitted and subsequently intubated and remains on the ventilator. He was noted to have pneumonia in the right lower lobe on admission. The patient presented on 02/24. He was noted to have sustained myocardial infarction with a [id number] myocardial infarction. He also has developed acute renal failure and he is undergoing hemodialysis. His ejection fraction is 25%. He also is noted to have severe pulmonary hypertension. He has also had intermittent episodes of NSVT. 1. Bilateral pneumonia. Positive sputum culture with Pseudomonas and yeast growing on the bronch. washing. (speech). The patient is very clinically ill with multiorgan failure. However, he is unlikely to improve with the Stenotrophomonas pneumonia without adequate treatment and it shows intermediate sensitivity to Levaquin and therefore Bactrim is recommended. I will also ask the lab to do sensitivities to a couple of (Other)antibiotics as well. Cleveland Ford MD Mar 11, 2017 12:21
--- NOTE | 2017-03-11 13:14 | HHI.NPPN ---
Subjective Complaints: Obesity General Problems: Edema Renal Failure: Acute Interval History Remains intubated, sedated. Had episode of hypoxia and bleeding from ETT yesterday, required 100% Fi02.. Had bedside bronchoscopy yesterday evening. Dialyzed yesterday. He is oliguric. Family meeting scheduled for today to discuss goals. (Katina Park) Review of Systems General General Remarks unable to evaluate (Katina Park) Objective Data Data 03/10/17 03/11/17 19:00 07:00 Intake Total 714 ml 3408 ml Output Total 2520 ml 605.0 ml Balance -1806 ml 2803.0 ml IV Total 473 ml 2080 ml Tube Feeding 241 ml 858 ml Packed Cells 350 ml Other 120 ml Output Urine Total 20 ml 45 ml Stool Total 560 ml Tube Feeding Residual Discard 0 ml Hemodialysis 2500 ml # Bowel Movements 3 Vital Signs Date Time Temp Pulse Resp B/P Pulse Ox O2 Delivery O2 Flow Rate FiO2 03/11/17 12:46 93 50 03/11/17 10:00 96 03/11/17 09:59 93 50 03/11/17 08:00 97.4 85 18 96/51 93 03/11/17 08:00 85 03/11/17 08:00 40 03/11/17 07:21 100 60 03/11/17 06:30 100 03/11/17 06:00 91 03/11/17 04:32 97 60 03/11/17 04:00 96 03/11/17 04:00 98.6 96 18 140/75 94 03/11/17 04:00 60 03/11/17 02:00 87 03/11/17 01:21 98 60 03/11/17 01:20 60 03/11/17 00:00 65 03/11/17 00:00 99.2 92 18 101/62 96 03/11/17 00:00 92 03/10/17 22:23 96 70 03/10/17 22:00 91 03/10/17 22:00 70 03/10/17 20:01 80 03/10/17 20:00 100 03/10/17 20:00 100.3 128 18 92/56 98 03/10/17 20:00 128 03/10/17 19:29 98 100 03/10/17 19:10 99 100 03/10/17 18:00 102 03/10/17 16:00 60 03/10/17 16:00 97.9 95 15 84/51 94 03/10/17 16:00 95 03/10/17 15:25 88 65 03/10/17 14:00 109 (Katina Park) -: 03/11/17 0335 03/11/17 0335 Imaging Last Impressions Chest X-Ray 03/10/17 0000 Signed Impressions: Service Date/Time: Friday, March 10, 2017 20:19 - CONCLUSION: Stable chest. No pneumothorax. Neto Duenas MD Abdomen/Pelvis CT 03/10/17 0000 Signed Impressions: Service Date/Time: Friday, March 10, 2017 10:20 - CONCLUSION: 1. There is no retroperitoneal hematoma. 2. Bilateral pleural effusions right greater than left. 3. A nonspecific, nonobstructed bowel gas pattern most consistent with a mild ileus and/or gastroenteritis. Raul Craig MD Abdomen X-Ray 03/07/17 0000 Signed Impressions: Service Date/Time: Tuesday, March 07, 2017 13:26 - CONCLUSION: No acute disease. Bg Faust MD Thoracentesis 03/03/17 0000 Signed Impressions: Service Date/Time: Friday, March 03, 2017 14:09 - CONCLUSION: Uncomplicated CT-guided right thoracentesis. Csah Cowan MD Chest CT 03/02/17 0000 Signed Impressions: Service Date/Time: Thursday, March 02, 2017 11:42 - CONCLUSION: Large bilateral pleural effusions and bibasilar consolidation and/or compressive collapse not present on the study from 2014. KHua Nguyen MD Lower Extremity Ultrasound 02/27/17 0000 Signed Impressions: Service Date/Time: Monday, February 27, 2017 09:13 - CONCLUSION: Normal examination. Evaristo Masesy MD Head CT 02/24/17 0000 Signed Impressions: Service Date/Time: Friday, February 24, 2017 18:59 - CONCLUSION: 1. No acute hemorrhage or mass effect. 2. Acute sinusitis in the left maxillary sinus. Raul Craig MD Cervical Spine MRI 02/24/17 0000 Signed Impressions: Service Date/Time: Friday, February 24, 2017 22:46 - CONCLUSION: 1. Small central protrusion at C4-5 without canal stenosis. 2. Small central protrusion at C3-4 with minimal extruded component. 3. Mild broad-based disc bulges at C5- 6 and C6-7 levels without canal stenosis. Neto Duenas MD Cervical Spine CT 02/24/17 0000 Signed Impressions: Service Date/Time: Friday, February 24, 2017 19:02 - CONCLUSION: 1. Moderate narrowing of left neural foramina at the C3-4 level secondary to hypertrophic change involving the facet joint. 2. Mild degenerative change at the C5-6 and C6-7 levels. 3. Mild disc osteophyte complex at C5-6 with mild narrowing of the neural foramina. Raul Craig MD Brain MRI 02/24/17 0000 Signed Impressions: Service Date/Time: Friday, February 24, 2017 22:46 - CONCLUSION: 1. No acute intracranial abnormality. 2. Left maxillary sinus disease. 3. No acute infarction. Neto Duenas MD Tubes & Lines: Vas-Cath, Barrios Tubes & Lines Comment TLC right SC VC left IJ Drip Comment fentanyl, versed (Katina Park [facility]) Physical Exam General Appearance: Sleeping, Obese Appearance Remarks intubated, sedated, not following commands (Katina Park [employer]) Ears & Nose Ears & Nose Exam: Nasal Mucosa [place] (Katina Park [employer]. [employer]) Throat Throat Exam: Oral Mucosa [place] & Moist (Katina Park [employer]) Pulmonary Resp Exam: Breath Sounds Equal, No Distress, Rhonchi, Decreased Bases, Diminished Breath Sounds Resp Remarks wheezing (Katina Park B. [employer]) Cardiology CV Exam: Normal Sinus Rhythm, Good Perfusion, Irregular, Tachycardia (Katina Park B. [employer]) Gastrointestinal/Abdomen GI Exam: Soft, Non-Tender, Bowel Sounds Present, Distended (Katina Park B. [employer]) Genitourinary Exam: Clear Urine (Katina Park B. [employer]) Musculoskeletal MS Exam: Joints Intact, Normal Tone, Unable to Ambulate (Katina Park [employer]) Integumentary Skin Exam: Clear, Warm, Dry, Intact (Katina Park) Extremeties Extremities Exam: Moderate Edema, Pitting Edema (Katina Park) Neurologic Neuro Exam: Unresponsive, Sedated (Katina Park) Assessment/Plan Assessment Summary: RAGHAVENDRA/Acute Renal Failure, Acute Tubular Necrosis, Fluid/ Volume Overload, Hypertension, Diabetes Mellitus Electrolyte Assessment: Hyperkalemia Problem List: (1) Acute renal failure superimposed on chronic kidney disease Plan: ATN from hypotension, renal hypoperfusion Vascath placed and HD was initiated 03/05 has been receiving HD daily since starting treatment aside from Thursday he is fluid overloaded K 5.5 dialysis again today, reevaluate need for additional treatments tomorrow has become oliguric, monitor output Avoid nephrotoxic agents, IVF daily renal panel continue phoslo for hyperphosphatemia change tube feeding to Nephro prognosis is guarded to poor (2) NSTEMI (non-ST elevated myocardial infarction) Plan: Cardiology following. Catheterization is planned once he is more stable, but renal function has declined necessitating dialysis (3) CHF exacerbation Plan: worsened by acute WA. monitor fluid volume status UF with dialysis as needed/tolerated minimize IVF (4) Pneumonia Plan: was on Zosyn, Levaquin, and Bactrim ID following also on IV solumedrol monitor clinically Blood cultures are negative , sputum cultures with Stenotrophomonas vent settings: A/C 18/600/50/10 will need tracheostomy (5) Type 2 diabetes mellitus Plan: continue insulin therapy, may need dose adjustment blood sugar elevated, of note he is on steroids recommend 140-180 mg/dL (Katina Park) Plan patient was seen and examined. Agree with above assessment and plan. (Pablo Miner MD) Problem Qualifiers (1) CHF exacerbation: Qualified Code: I50.9 - Acute on chronic congestive heart failure, unspecified congestive heart failure type (2) Pneumonia: Qualified Code: J18.1 - Pneumonia of right lower lobe due to infectious organism Katina Park Mar 11, 2017 13:14 Pablo Miner MD Mar 11, 2017 17:26
[2017-03-11] MEDS: GENTAMICIN SULFATE (DIALYSIS USE ONLY) 20 MG/2 ML VIAL IV PRN (15:51)
[2017-03-11] MEDS: HEPARIN SODIUM - IV 10,000 UNITS/10 ML VIAL PRN (15:51)
[2017-03-11] MEDS: MANNITOL 12.5 GM/50 ML VIAL IV PRN (15:52)
[2017-03-11] MEDS: ALBUMIN HUMAN 25% 25 GM/100 ML BAGP IV PRN (15:53)
[2017-03-11] MEDS: ASPIRIN EC 81 MG TABEC PO SCH (20:21)
[2017-03-11] MEDS: ATORVASTATIN 80 MG TAB PO SCH (20:21)
[2017-03-11] MEDS: DOCUSATE SODIUM 100 MG/10 ML UDC PO SCH (20:22)
[2017-03-12] VITALS (13 sets, daily range): BP systolic 96–140; BP diastolic 58–79; PULSE 97–124; RESP 18–20; TEMP 98.3–98.9; O2SAT 64–99
[2017-03-12] MEDS: hydrALAZINE HCL 20 MG/ML VIAL IV PUSH SCH ×4 (00:49→12:20)
[2017-03-12] MEDS: INSULIN NovoLIN REGULAR SUPPLEMENTAL SCALE SQ SCH ×4 (00:49→12:21)
[2017-03-12] MEDS: CHLORHEXIDINE GLUCONATE 2 % 1 PACK (2 CLOTHS) TOP SCH (03:36)
[2017-03-12] MEDS: RESP: ALBUTEROL 2.5 MG/IPRATROPIUM 0.5 MG NEB (SCH) INH ×3 (04:07→11:10)
[2017-03-12] MEDS: RESP: SODIUM CHLORIDE 3% 4 ML NEB NEB SCH ×3 (04:07→11:10)
[2017-03-12] MEDS: ARTIFICIAL TEARS OPTH SOLN 15 ML BTL EACH EYE SCH ×2 (05:16→12:20)
[2017-03-12] MEDS: METOCLOPRAMIDE HCL 10 MG/2 ML VIAL IV PUSH SCH ×2 (05:16→12:20)
[2017-03-12] MEDS: MIDAZOLAM 100 MG/NS 100 ML DRIP Premix IV SCH ×2 (05:16→14:18)
[2017-03-12] MEDS: fentaNYL 2,500 MCG/NS 250 ML IV SCH (05:16)
[2017-03-12] MEDS: RESP: BUDESONIDE 0.5 MG/2 ML NEB NEB SCH (07:53)
--- NOTE | 2017-03-12 08:17 | PD.CARD.PN ---
Subjective Subjective Remarks intubated, mechanically ventilated Objective Medications Current Medications Medications (Trade) Dose Ordered Sig/Steve Route Start Time Stop Time Status Last Admin (NS Flush) 2 ml UNSCH PRN IV FLUSH 02/24/17 22:00 03/11/17 09:27 (NS Flush) 2 ml BID IV FLUSH 02/25/17 09:00 03/11/17 20:21 (Narcan Inj) 0.4 mg UNSCH PRN IV 02/24/17 22:00 (Mucinex Er) 600 mg BID PO 02/25/17 13:00 Hold 02/25/17 20:51 (Tessalon) 200 mg Q8H PRN PO 02/25/17 13:00 Hold (Lasix Inj) 40 mg BID@09,18 IV PUSH 02/25/17 18:00 Hold 02/25/17 17:44 (Ecotrin Ec) 81 mg HS PO 02/25/17 21:00 03/11/17 20:21 (Lipitor) 80 mg HS PO 02/25/17 21:00 03/11/17 20:21 (Symbicort 160-4.5 Inh) 2 puff BID INH 02/25/17 21:00 Hold 02/25/17 20:51 (Toprol Xl) 200 mg DAILY PO 02/26/17 09:00 Hold Chlorhexidine Gluconate 15 ml 15 ml BID@08,20 MT 02/26/17 08:00 03/11/17 20:20 (NS 1000 ml Inj) 1,000 ml @ 84 mls/hr [id number] IV 02/26/17 01:18 Hold 02/26/17 01:18 (Tylenol) 650 mg Q6H PRN PO 02/26/17 01:30 (Protonix Inj) 40 mg DAILY IV 02/26/17 09:00 03/11/17 09:26 (Zofran Inj) 4 mg Q6H PRN IV 02/26/17 01:30 Miscellaneous Information 1 Q361D XX 02/26/17 01:30 02/26/17 01:30 (Chlorhexidine 2% Cloth) Taper DAILY@04 TOP 02/26/17 04:00 02/22/18 03:59 03/09/17 04:00 Chlorhexidine Gluconate 3 pack 3 pack UNSCH PRN TOP 02/26/17 01:30 Propofol 100 ml @ 0 mls/hr TITRATE IV 02/26/17 01:30 Hold 03/05/17 23:07 Fentanyl Citrate 250 ml @ 0 mls/hr TITRATE IV 02/26/17 03:00 03/12/17 05:16 Midazolam HCl 100 ml @ 0 mls/hr TITRATE IV 02/26/17 03:00 03/12/17 05:16 (Thiamine Inj/NS Inj) 101 ml @ 101 mls/hr DAILY IV 03/01/17 09:00 03/11/17 09:22 (Folate) 1 mg DAILY PO 03/01/17 09:00 03/11/17 09:00 (Theragran) 1 tab DAILY PO 03/01/17 09:00 03/11/17 09:23 (Senna Liq) 8.8 mg BID PO 02/28/17 21:00 03/11/17 20:22 (Lac-Hydrin 12% Lotion) 1 applic BID TOPICAL 02/28/17 21:00 03/11/17 20:22 (Beneprotein Powder) 1 pack TID G-TUBE 02/28/17 13:00 03/11/17 18:00 (Tears Naturale Opth Soln) 1 drop Q8HR EACH EYE 02/28/17 14:00 03/12/17 05:16 Glycerin 2 gm 2 gm BID PRN RECTAL 03/01/17 08:30 (Heparin-NS/Pf Inj) 500 ml @ 0 mls/hr Q0M IART 03/02/17 14:07 (D50w (Vial) Inj) 25 ml UNSCH PRN IV PUSH 03/03/17 08:45 (Glucagon Inj) 1 mg UNSCH PRN OTHER 03/03/17 08:45 Insulin Human Regular 1 1 Q4HR SQ 03/03/17 12:00 03/12/17 03:35 (NS 1000 ml Inj) 1,000 ml @ 0 mls/hr Q0M PRN IV 03/05/17 08:26 03/07/17 08:54 Heparin Sodium (Porcine) 8000 units 8,000 units UNSCH PRN IVF 03/05/17 08:30 Sodium Chloride 1,000 ml @ 200 mls/hr Q5H PRN IV 03/05/17 08:26 (NS 1000 ml Inj) 1,000 ml @ 0 mls/hr Q0M PRN IV 03/05/17 08:26 (Mannitol Inj) 12.5 gm UNSCH PRN IV 03/05/17 08:30 03/11/17 15:52 (Albumin 25% Inj) 25 gm UNSCH PRN IV 03/05/17 08:30 03/11/17 15:53 (NS Flush) 5 ml UNSCH PRN IV FLUSH 03/05/17 08:30 (Heparin Inj) UNSCH PRN .XX 03/05/17 08:30 03/11/17 15:51 (Gentamicin (Dialysis) Inj) 20 mg UNSCH PRN IV 03/05/17 08:30 03/11/17 15:51 (Zofran Inj) 4 mg UNSCH PRN IV 03/05/17 08:30 (Tylenol) 650 mg UNSCH PRN PO 03/05/17 08:30 (Benadryl) 25 mg UNSCH PRN PO 03/05/17 08:30 (Nitrostat Sl) 0.4 mg UNSCH PRN SL 03/05/17 08:30 (Catapres) 0.1 mg UNSCH PRN PO 03/05/17 08:30 (Gelfoam 12 Mm/7 Mm Top) 1 foam UNSCH PRN TOP 03/05/17 08:30 Metoclopramide HCl 5 mg 5 mg Q8HR IV PUSH 03/06/17 08:30 03/12/17 05:16 (Levaquin 500 Mg Premix Inj) 100 ml @ 100 mls/hr Q48H IV 03/08/17 16:00 03/10/17 15:09 (Apresoline Inj) 5 mg Q4H IV PUSH 03/08/17 13:15 03/10/17 09:15 (NS Flush) DAILY IVF 03/09/17 09:00 03/11/17 09:27 (NS Flush) UNSCH PRN IVF 03/08/17 12:15 03/11/17 09:26 (Cordarone) 400 mg Q12HR PO 03/08/17 21:00 03/11/17 20:22 (Phoslo) 2,001 mg TID PO 03/09/17 13:00 03/11/17 18:05 (SoluMEDROL INJ) 20 mg DAILY IV PUSH 03/10/17 09:00 03/11/17 09:25 (Colace Liq) 100 mg BID PO 03/11/17 21:00 03/11/17 20:22 (Levemir Inj) 65 units Q12HR SQ 03/11/17 21:00 03/11/17 20:21 Vital Signs / I&O Vital Signs Date Time Temp Pulse Resp B/P Pulse Ox O2 Delivery O2 Flow Rate FiO2 03/12/17 07:54 98 40 03/12/17 06:00 108 03/12/17 04:21 97 50 03/12/17 04:00 98.4 101 18 127/61 96 03/12/17 04:00 101 03/12/17 04:00 50 03/12/17 02:00 97 03/12/17 01:18 98 50 03/12/17 00:00 50 03/12/17 00:00 98.9 102 18 122/61 99 03/12/17 00:00 102 03/11/17 22:00 91 03/11/17 20:00 99.0 90 18 88/50 96 03/11/17 20:00 50 03/11/17 20:00 90 03/11/17 19:21 96 50 03/11/17 18:00 92 03/11/17 16:24 96 50 03/11/17 16:00 108 03/11/17 16:00 50 03/11/17 16:00 98.1 108 18 102/57 96 03/11/17 14:00 93 03/11/17 12:46 93 50 03/11/17 12:00 40 03/11/17 12:00 97.8 87 23 82/50 92 03/11/17 12:00 96 03/11/17 10:00 96 03/11/17 09:59 93 50 I/O 03/11/17 03/11/17 03/11/17 03/12/17 03/12/17 03/12/17 07:00 15:00 23:00 07:00 15:00 23:00 Intake Total 1924 ml 1066 ml 664 ml 755 ml Output Total 220 ml 200 ml 3175.0 ml 335 ml Balance 1704 ml 866 ml -2511.0 ml 420 ml IV Total 1418 ml 504 ml 363 ml 312 ml Tube Feeding 446 ml 502 ml 241 ml 383 ml Other 60 ml 60 ml 60 ml 60 ml Output Urine Total 20 ml 0 ml 15 ml 25 ml Stool Total 200 ml 200 ml 160 ml 310 ml Tube Feeding Residual Discard 0 ml 0 ml 0 ml 0 ml Hemodialysis 3000 ml Physical Exam GENERAL: intubated, sedated and mechanically ventilated EYES: Pupils equal and round. No scleral icterus. NECK: Trachea midline. No JVD. CARDIOVASCULAR: Regular rate, irregularly irregular rhythm RESPIRATORY: bilateral rhonchi GASTROINTESTINAL: Abdomen soft, non-tender, nondistended. MUSCULOSKELETAL: Extremities without clubbing, cyanosis, or edema. NEUROLOGICAL: sedated Laboratory Laboratory Tests Test 03/08/17 03/08/17 03/08/17 03/10/17 01:06 05:18 06:00 05:25 Antibody Screen NEGATIVE Total Creatine Kinase 149 U/L Blood Gas Puncture Site LT RADIAL Blood Gas Patient Temperature 98.6 Blood Gas HCO3 22 mmol/L Blood Gas Base Excess -2.1 mmol/L Blood Gas Oxygen Saturation 92 % Arterial Blood pH 7.41 Arterial Blood Partial 36 mmHg Pressure CO2 Arterial Blood Partial 75 mmHg Pressure O2 Arterial Blood Oxygen Content 11.4 Vol % Arterial Blood 1.6 % Carboxyhemoglobin Arterial Blood Methemoglobin 0.9 % Blood Gas Hemoglobin 8.8 G/DL Blood Gas Ventilator Setting Blood Gas Inspired Oxygen 50 % Magnesium Level 2.9 MG/DL Total Bilirubin 0.6 MG/DL Aspartate Amino Transf 11 U/L (AST/SGOT) Alanine Aminotransferase 29 U/L (ALT/SGPT) Alkaline Phosphatase 45 U/L Total Protein 5.8 GM/DL Test 03/10/17 03/10/17 03/11/17 09:02 16:08 03:35 Blood Type AB POSITIVE Crossmatch Leukocyte-Reduced Red Blood Cells Blood Bank Comment White Blood Count 8.3 TH/MM3 Red Blood Count 3.31 MIL/MM3 Hemoglobin 9.7 GM/DL Hematocrit 29.1 % Mean Corpuscular Volume 87.9 FL Mean Corpuscular Hemoglobin 29.3 PG Mean Corpuscular Hemoglobin 33.3 % Concent Red Cell Distribution Width 16.1 % Platelet Count 112 TH/MM3 Mean Platelet Volume 10.1 FL Neutrophils (%) (Auto) 93.7 % Lymphocytes (%) (Auto) 1.8 % Monocytes (%) (Auto) 4.2 % Eosinophils (%) (Auto) 0.1 % Basophils (%) (Auto) 0.2 % Neutrophils # (Auto) 7.8 TH/MM3 Lymphocytes # (Auto) 0.2 TH/MM3 Monocytes # (Auto) 0.4 TH/MM3 Eosinophils # (Auto) 0.0 TH/MM3 Basophils # (Auto) 0.0 TH/MM3 CBC Comment DIFF FINAL Differential Comment Sodium Level 141 MEQ/L Potassium Level 5.5 MEQ/L Chloride Level 98 MEQ/L Carbon Dioxide Level 29.4 MEQ/L Anion Gap 14 MEQ/L Blood Urea Nitrogen 117 MG/DL Creatinine 4.98 MG/DL Estimat Glomerular Filtration 11 ML/MIN Rate Random Glucose 257 MG/DL Calcium Level 8.8 MG/DL Phosphorus Level 8.0 MG/DL Albumin 3.3 GM/DL Imaging Last Impressions Chest X-Ray 03/10/17 0000 Signed Impressions: Service Date/Time: Friday, March 10, 2017 20:19 - CONCLUSION: Stable chest. No pneumothorax. Neto Duenas MD Abdomen/Pelvis CT 03/10/17 0000 Signed Impressions: Service Date/Time: Friday, March 10, 2017 10:20 - CONCLUSION: 1. There is no retroperitoneal hematoma. 2. Bilateral pleural effusions right greater than left. 3. A nonspecific, nonobstructed bowel gas pattern most consistent with a mild ileus and/or gastroenteritis. Raul Craig MD Abdomen X-Ray 03/07/17 0000 Signed Impressions: Service Date/Time: Tuesday, March 07, 2017 13:26 - CONCLUSION: No acute disease. Bg Faust MD Thoracentesis 03/03/17 0000 Signed Impressions: Service Date/Time: Friday, March 03, 2017 14:09 - CONCLUSION: Uncomplicated CT-guided right thoracentesis. Cash Cowan MD Chest CT 03/02/17 0000 Signed Impressions: Service Date/Time: Thursday, March 02, 2017 11:42 - CONCLUSION: Large bilateral pleural effusions and bibasilar consolidation and/or compressive collapse not present on the study from 2014. Travis Nguyen MD Lower Extremity Ultrasound 02/27/17 0000 Signed Impressions: Service Date/Time: Monday, February 27, 2017 09:13 - CONCLUSION: Normal examination. Evaristo Massey MD Head CT 02/24/17 0000 Signed Impressions: Service Date/Time: Friday, February 24, 2017 18:59 - CONCLUSION: 1. No acute hemorrhage or mass effect. 2. Acute sinusitis in the left maxillary sinus. Raul Craig MD Cervical Spine MRI 02/24/17 0000 Signed Impressions: Service Date/Time: Friday, February 24, 2017 22:46 - CONCLUSION: 1. Small central protrusion at C4-5 without canal stenosis. 2. Small central protrusion at C3-4 with minimal extruded component. 3. Mild broad-based disc bulges at C5- 6 and C6-7 levels without canal stenosis. Neto Duenas MD Cervical Spine CT 02/24/17 0000 Signed Impressions: Service Date/Time: Friday, February 24, 2017 19:02 - CONCLUSION: 1. Moderate narrowing of left neural foramina at the C3-4 level secondary to hypertrophic change involving the facet joint. 2. Mild degenerative change at the C5-6 and C6-7 levels. 3. Mild disc osteophyte complex at C5-6 with mild narrowing of the neural foramina. Raul Craig MD Brain MRI 02/24/17 0000 Signed Impressions: Service Date/Time: Friday, February 24, 2017 22:46 - CONCLUSION: 1. No acute intracranial abnormality. 2. Left maxillary sinus disease. 3. No acute infarction. Neto Duenas MD Assessment and Plan Problem List: (1) NSTEMI (non-ST elevated myocardial infarction) (2) Acute CHF (3) Shock (4) Atrial fibrillation Assessment and Plan ARDS- multifactorial: PNA, COPD, SEBASTIAN, pHTN, sepsis. remains mechanically ventilated cardiomyopathy- EF 25%, consideration for cardiac cath upon recovery ARF- creatinine improving paroxysmal afib- no bb due to pulmonary status aortic stenosis, moderate NSVT- tele reviewed, 3 beats of NSVT yesterday consideration for ventilator withdrawal today dependant on family decision. hospice to be consulted. Mulu Hummel Mar 12, 2017 08:17
[2017-03-12] MEDS: DOCUSATE SODIUM 100 MG/10 ML UDC PO SCH (08:42)
[2017-03-12] MEDS: CALCIUM ACETATE 667 MG CAP PO SCH ×2 (08:42→12:20)
[2017-03-12] MEDS: THIAMINE INJ 100 MG in SODIUM CHLORIDE 0.9% INJ 100 ML IV SCH (08:42)
[2017-03-12] MEDS: SENNOSIDES SYRUP 8.8 MG/5 ML CUP PO SCH (08:42)
[2017-03-12] MEDS: methylPREDNISolone SOD SUCC 40 MG/1 ML VIAL IV PUSH SCH (08:42)
[2017-03-12] MEDS: SODIUM CHLORIDE 0.9% FLUSH 10 ML FLUSH IV FLUSH SCH (08:43)
[2017-03-12] MEDS: SODIUM CHLORIDE 0.9% FLUSH 10 ML FLUSH IVF PRN (08:43)
[2017-03-12] MEDS: SODIUM CHLORIDE 0.9% FLUSH 10 ML FLUSH IV FLUSH PRN ×2 (08:43→14:18)
[2017-03-12] MEDS: AMIODARONE 200 MG TAB PO SCH (08:43)
[2017-03-12] MEDS: FOLIC ACID 1 MG TAB PO SCH (08:43)
[2017-03-12] MEDS: SODIUM CHLORIDE 0.9% FLUSH 10 ML FLUSH IVF SCH (08:43)
[2017-03-12] MEDS: MULTIVITAMIN TAB PO SCH (08:43)
[2017-03-12] MEDS: INSULIN DETEMIR 100 UNITS/ML VIAL SQ SCH (08:43)
[2017-03-12] MEDS: PANTOPRAZOLE SODIUM 40 MG VIAL IV SCH (08:44)
[2017-03-12] MEDS: BENEPROTEIN POWDER 1 PACK G-TUBE SCH ×2 (08:44→12:21)
[2017-03-12] MEDS: LACTIC ACID (AMMONIUM LACTATE) 12% LOTION 225 GM BTL TOPICAL SCH (08:45)
[2017-03-12] MEDS: CHLORHEXIDINE 0.12% (ORAL KIT) 15 ML CUP MT SCH (08:45)
--- NOTE | 2017-03-12 09:19 | HHI.CCPN ---
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 Upon arrival to F pod discovered that patient was awake and normotensive, with sinus tachycardia in the 150s in severe respiratory distress. He had not lost a pulse but [facility] had been called to facilitate rapid evaluation and stabilization. 76-year-old male with past history of obesity, COPD, obstructive sleep apnea on CPAP, CHF, peripheral neuropathy, hypertension, diabetes, hyperlipidemia, obesity who receives medical care at the [facility]. He presented to [facility] emergency department 02/25/17 with falls and difficulty with balance. He also reported that he was having shortness of breath and cough for several days. Was not febrile in hospital. On the day of admission he had some chest pain across his chest. Troponins negative. He was treated for pneumonia with Rocephin and azithromycin. He was placed on steroids Solu-Medrol 60 mg IV every 6 hours. Received Lasix at about 6 PM on due to concern for volume overload. Echo had poor images but systolic function appeared reduced. Tonight he developed acutely worsening shortness of breath and Dr. Galicia presented to the emergency Department to evaluate him where he was found to be tachypneic and wheezing. He was given a neb and preparations were being made to place him on BiPAP. He was becoming less responsive and was looking upward when I arrived and respiratory was placing on Bipap. He was in extremis and it was felt he would need emergent intubation prior to transfer to ICU. He denied chest pain. He was preoxygenated on Bipap, did seem to become more alert and nodded that he agreed with proceeding with intubation. He was intubated in F pod and then transferred to [facility]. Upon arrival to [facility] he was in atrial fibrillation in the 130s. SBP was 90/50 then 64/40. Central line was placed and he converted to sinus tachycadia in 101-130s. Subsequently he was normotensive with MAP 71. He was also sedated with propofol during the hypotension, improved after transition to fentanyl drip. 02/27: PA catheter placed yesterday. PA catheter readings are more consistent distributive/septic shock with high cardiac output with low SVR. CO 10-11. CI 2.8 SVRI 7640-7311. D/W Dr Butts. Will hold off Flolan challenge at this time for high PA pressure- mean 59-60. After weaning pressors, PA mean pressure is about 40. Patient's hemodynamics have improved, vasopressin is off now, Levophed is at 4 mics per minute. Give Bumex 2 mg 1 on Bumex drip at 2 mg per hour per Dr. Miner 02/28: Afebrile. Arousable on the vent and moves 4 extremities spontaneously but doesn't follow commands. No bowel movement since admission. Currently nothing by mouth. Remains on low-dose vasopressors including vasopressin and Levophed 03/01: [place] Luisa catheter removed yesterday. Adequate urine output on Bumex drip at 1 mg an hour. Afebrile. Currently replaced potassium. 03/02: Afebrile. Bumex drip has been discontinued. Currently replaced potassium. Positive BM overnight. We'll attempt spontaneous breathing trials today. 03/03: Afebrile. Adequate urine output. Positive BM. Tolerating tube feeds. Heparin drip for thoracentesis. Eyes are open but not following commands. Continues on Versed and fentanyl drips. 03/04: Afebrile. Status post thoracentesis yesterday -1150 years transudative. Positive BM 1. Tolerating tube feeding. Hypertensive. Hydralazine added per cardiology. 03/05: Patient remains intubated sedated. Bedside ultrasound shows Moderate left pleural effusion. Agitated on lightening sedation 03/06: Remains intubated sedated. Overnight FiO2 had to increase to 100 % due to desaturation, now reduced to 60% again. Chest x-ray shows bilateral pulmonary edema. Nephrology contacted- hemodialysis today with attempt at 4L removal. Status post bedside thoracentesis (Left side) yesterday with 1L transudative fluid removal 03/07: Tmax 99.2. Currently 99. Positive bloody secretions from ET tube. Heparin drip has been off since yesterday. Desaturated overnight FiO2 currently down to 40%. PEEP set at.8. Resting in bed in no acute distress. Eyes open and moves all 4 extremity spontaneously but not following commands. 03/08: Afebrile currently. Status post bronchoscopy yesterday with copious amounts of hemorrhagic secretions without obvious source. Transfuse 3 units. Receives overnight. Again no obvious source of bleeding. Tolerating tube feeding. Positive BM. 03/09: Tmax 99. Positive BM. Noted decreased blood pressure overnight. Increased PEEP: Concomitant cause. Chest x-ray today pending. ARDS type picture yesterday. Plan for hemodialysis today. 03/10: PEEP down to 10. From 15. Hemoglobin dropped from 10-8 overnight. No obvious source of bleeding. CT abdomen/cells reveal no retroperitoneal hematoma. He is to have bloody secretions from ET tube. Heparin drip as been off for several days. GI will be consulted. Hemoccult pending. 03/11: Status post bronchoscopy yesterday for gross hemoptysis. No focal site of bleeding. Received bicarbonate which seemed to stop the bleeding. Very scant bloody secretions seen. FiO2 down 40%. Hemodialysis planned for today. Noted potassium 5.5. Family meeting planned for 11 with palliative care Subjective 03/12: Afebrile. Family plantar withdrawal care today at 1 PM. Remains on 50% FiO2. PEEP 10. Hyper catabolic with high potassium again this a.m. Objective Vital Signs Date Time Temp Pulse Resp B/P Pulse Ox O2 Delivery O2 Flow Rate FiO2 03/12/17 07:54 98 40 03/12/17 06:00 108 03/12/17 04:00 98.4 18 127/61 Intake and Output 03/11/17 03/11/17 03/12/17 08:00 16:00 00:00 Intake Total 1924 ml 1066 ml 664 ml Output Total 220.0 ml 3200.0 ml 175.0 ml Balance 1704.0 ml -2134.0 ml 489.0 ml Result Diagram: 03/11/17 0335 03/11/17 0335 Other Results Microbiology Date/Time Procedure Status Source Growth 03/07/17 17:20 Gram Stain - Final Complete Bronchial Washings Bronchial 03/07/17 17:20 Bronchial Culture - Final Complete Bronchial Washings Bronchial LIGHT GROWTH NORMAL RESPIRATORY JEN 03/07/17 17:20 Fungal Smear - Final Resulted Bronchial Washings Bronchial NO FUNGAL ELEMENTS SEEN. 03/07/17 17:20 Fungal Culture - Preliminary Resulted Bronchial Washings Bronchial 03/07/17 17:20 Acid Fast Stain - Final Resulted Bronchial Washings Bronchial NO ACID FAST BACILLI SEEN 03/07/17 17:20 Mycobacterial Culture Resulted Bronchial Washings Bronchial Pending Imaging Last Impressions Chest X-Ray 03/10/17 0000 Signed Impressions: Service Date/Time: Friday, March 10, 2017 20:19 - CONCLUSION: Stable chest. No pneumothorax. Neto Duenas MD Abdomen/Pelvis CT 03/10/17 0000 Signed Impressions: Service Date/Time: Friday, March 10, 2017 10:20 - CONCLUSION: 1. There is no retroperitoneal hematoma. 2. Bilateral pleural effusions right greater than left. 3. A nonspecific, nonobstructed bowel gas pattern most consistent with a mild ileus and/or gastroenteritis. Raul Craig MD Abdomen X-Ray 03/07/17 0000 Signed Impressions: Service Date/Time: Tuesday, March 07, 2017 13:26 - CONCLUSION: No acute disease. Bg Faust MD Thoracentesis 03/03/17 0000 Signed Impressions: Service Date/Time: Friday, March 03, 2017 14:09 - CONCLUSION: Uncomplicated CT-guided right thoracentesis. Cash Cowan MD Chest CT 03/02/17 0000 Signed Impressions: Service Date/Time: Thursday, March 02, 2017 11:42 - CONCLUSION: Large bilateral pleural effusions and bibasilar consolidation and/or compressive collapse not present on the study from 2014. Travis Nguyen MD Lower Extremity Ultrasound 02/27/17 0000 Signed Impressions: Service Date/Time: Monday, February 27, 2017 09:13 - CONCLUSION: Normal examination. Evaristo Massey MD Head CT 02/24/17 0000 Signed Impressions: Service Date/Time: Friday, February 24, 2017 18:59 - CONCLUSION: 1. No acute hemorrhage or mass effect. 2. Acute sinusitis in the left maxillary sinus. Raul Craig MD Cervical Spine MRI 02/24/17 0000 Signed Impressions: Service Date/Time: Friday, February 24, 2017 22:46 - CONCLUSION: 1. Small central protrusion at C4-5 without canal stenosis. 2. Small central protrusion at C3-4 with minimal extruded component. 3. Mild broad-based disc bulges at C5- 6 and C6-7 levels without canal stenosis. Neto Duenas MD Cervical Spine CT 02/24/17 0000 Signed Impressions: Service Date/Time: Friday, February 24, 2017 19:02 - CONCLUSION: 1. Moderate narrowing of left neural foramina at the C3-4 level secondary to hypertrophic change involving the facet joint. 2. Mild degenerative change at the C5-6 and C6-7 levels. 3. Mild disc osteophyte complex at C5-6 with mild narrowing of the neural foramina. Raul Craig MD Brain MRI 02/24/17 0000 Signed Impressions: Service Date/Time: Friday, February 24, 2017 22:46 - CONCLUSION: 1. No acute intracranial abnormality. 2. Left maxillary sinus disease. 3. No acute infarction. Neto Duenas MD Objective Remarks GENERAL: 76-year-old male, critically ill currently orotracheally intubated in no acute distress SKIN: Warm and dry. No rash HEAD: Atraumatic. Normocephalic. EYES: Pupils equal and round 3-4 mm and reactive bilaterally. No scleral icterus. No injection or drainage. ENT: Orotracheally intubated NECK: Trachea midline. Right internal jugular, LIJ hemodialysis catheter clean dry and intact CARDIOVASCULAR: RRR. S1, S2. No S4. Faint 1/6 systolic murmur right upper sternal border RESPIRATORY: Few crackles appreciated bilaterally. Left greater than right Symmetrical excursion. GASTROINTESTINAL: Abdomen obese, protuberant, small umbilical reducible hernia. Bowel sounds are hypoactive. MUSCULOSKELETAL: Extremities with much improved lower extremity edema . Chronic venous stasis/lymphedema NEUROLOGICAL: Eyes are open. Positive corneal reflex. Positive gag. Moves all 4 extremity spontaneously but not following commands. Withdraws to pain upper and lower extremities bilaterally. A/P Assessment and Plan NEURO/PSYCH: Acute encephalopathy - secondary to hypercapnia and hypoxemia Peripheral neuropathy Allergic rhinitis Currently off propofol and fentanyl r for sedation/analgesia while intubated. Goal of RASS -2. Daily sedation vacation MRI brain 02/24 - no acute abnormality MRI C-spinesmall central protrusion at C3/C4 with mild extruded central spinal cord C4-C5 without canal stenosis with mild disc bulging C5/6 and C6/7 EEG 02/27 revealed moderate to severe encephalopathy. No epileptiform activity Questionable history of EtOH use/abuse. We'll continue on thiamine/folate and multivitamin today Neurontin level 2.3. Previously on 600 mg 3 times a day for shingles pain management. Currently on hold Holding Flonase twice a day/Zyrtec 5 mill grams daily. Resume as clinically indicated RESP: Acute hypoxemic and hypercapnic respiratory failure Acute COPD exacerbation Bilateral large pl effusions History of asthma? Acute on chronic pulmonary artery hypertension Objective sleep apnea - noncompliant with CPAP History of tobacco abuse PRVC 18/600/1.01/23/50. Ventilator bundle DuoNeb every 4 hours with albuterol every 2 hours when necessary Continue Pulmicort 0.5/2 one inhalation twice a day Solumedrol 20 milligrams every q24to be weaned over the next several days s/p thoracentesis left-sided 03/05 with 1L removed -transudate Right thoracentesis 03/03 likely transudative. -1150 Home medication regimen is Symbicort 160/4.5 to press twice a day, Spiriva 18 inhalation daily and Ventolin 4 times a day with duo nebs aerosols for breakthrough every 4 hours when necessary According to records, noncompliant with CPAP for SEBASTIAN Airway edema noted particularly large arytenoid edema noted on intubation 02/26 with anterior airway. Intubated with Glidescope and 7.5 ETT. Bronchoscopy 03/07 revealed no obvious source of bleeding. Bloody secretions throughout. See note Will need tracheostomy aggressive care to be continued Cardiovascular: Pulmonary edema Shock, distributive/septic resolved Acute on chronic systolic heart failure EF 25-30% Moderate Moderate to severe TR NSTEMI Paroxysmal atrial fibrillation/flutter History of Hypertension Hyperlipidemia History of coronary artery disease Currently off all vaso pressors. Additional fl removal today with HD (target 3L) PAC placed 02/26-initially distributive shock (CI 2.8, SVRI 1300). Cardiac index at 2.1. Cardiac output 5.2 and SVR 1250 this could be possibly be vaso constrictive/late sepsis versus effects of diuresis It is unclear whether pulmonary hypertension is secondary to left heart failure versus SEBASTIAN versus COPD [place] was unable to do transpulmonary gradient secondary to unable to wedge balloon [place] Luisa catheter removed 02/[address] Butts IV heparin for NSTEMI and A Fib rate discontinued secondary to hemoptysis. Bumex 2 mg IV 1 02/27 and initiated Bumex infusion currently discontinued as of 03/03 Continue aspirin 81 mg daily Switched amiodarone drip secondary to 7 beat of V. tach at 0953 03/07 patient switched back to 400 twice a day 03/08 Troponin peaked at 27. Left heart catheterization when clinically stable Continue atorvastatin 80 mg daily at bedtime for dyslipidemia Unable to use beta charles secondary due to hypotension. On Lopressor 200 mg daily at home. Other blood pressures include lisinopril 40 mg daily and HCTZ 12.5 mg daily. On hold due to acute kidney injury Started hydralazine 5 milligrams IV every [address] Butts Echo 02/27: - Systolic function was severely reduced 25% to 30%. Diffuse hypokinesis. -Aortic valve: moderate stenosis. Tricuspid valve: Moderate/severe regurgitation. SUZAN 70 mmHg Echo 03/06 -- Left ventricle: The cavity size was mildly dilated. Wall thickness was increased in a pattern of mild LVH. There was concentric hypertrophy. Systolic function was severely reduced. The estimated ejection fraction was in the range of 20% to 25%. Diffuse hypokinesis. - Aortic valve: Valve mobility was mildly restricted. There was mild to moderate stenosis. Valve area: 1.37cm^2 (VTI). Valve area: 1.13cm^2 (Vmax). - Mitral valve: Mild regurgitation. - Left atrium: The atrium was mildly dilated. - Right ventricle: The cavity size was mildly dilated. - Atrial septum: No defect or patent foramen ovale was identified. - Tricuspid valve: Mild regurgitation. - Pulmonary arteries: PA peak pressure: 69mm Hg (S). Impressions: No colorflow noted across the ventricular septum concerning for a VSD. No papillary muscle ruptures noted. GI: Constipation Glucerna 1.5 goal 55 cc an hour Protonix 40 mg IV daily Colace and Senokot twice a day for bowel regimen Having BM Start Reglan 5 every 8 for high residual KUB 03/07 revealed nonspecific bowel gas pattern. : BPH Holding doxazosin 8 mg daily light of hypotension Maintain Barrios for accurate I's and O's in a critically ill patient FEN/RENAL: Acute kidney injury/ATN Monitor intake and output. Monitor electrolytes Bumex discontinued HD started 03/05, 2.5L fluid removed on 03/10. Hemodialysis is planned for today ID: Acute community acquired pneumonia Stenotrophomonas Septic shock-resolved Continue Zosyn ->Levaquin started 03/06 Bactrim started 03/09 discontinued his Zithromax after 8 days. Microbiology: lood culture 2 setsno growth to date 02/25sputum - no growth 02/25urine Legionella and pneumococcal antigen negative 02/25influenza screen negative 02/26 - urine - no growth 02/26 - blood cultures 2 - no growth 03/06: sputum culture - stenotrophomonas 03/07 - bronchoscopy -East Consult infectious disease with resistance stenotrophomonas with renal failure HEME: Normocytic anemia Leukocytosis Thrombocytopenia No indication for transfusion of blood products at this time Heparin drip off secondary to bloody secretions. 3 units PRBCs 03/07. Unknown if from hemodilution versus renal failure however no active bleeding appreciated currently. Transfuse 1 units PRBCs today. Recheck hemogram after transfusion. GI consulted for anemia. Possible PEG tube placed. 03/10 CT/pelvis revealed possible early ileus. Right greater than left pleural effusion. No retroperitoneal hematoma. ENDO: Poorly controlled diabetes mellitus - hemoglobin A1c of 8.6 Levemir 65 units twice a day with sliding scale insulin 4/moderate regimen. 21 units sliding scale insulin past 24 hours At home on Lantus 35 units twice a day and Novulin R 15 units 3 times a day with meals MSK Chronic lymphedema Osteoporosis/osteoarthritis Lac-Hydrin twice a day for lower extremity lymphedema 02/27 venous Dopplers showed no DVT Hold Risedronate 35 mg mg weekly for osteoporosis PROPH: Protonix 40 mg IV daily for stress ulcer prophylaxis. Heparin drip has been held secondary to bloody secretions. We'll start subcutaneous ACCESS: Right subclavian central venous line placed 02/26-03/08 Right IJ Cordis/day #4 discontinued 03/02 LIJ Vascath placed 03/05/17 day #8 Right IJ CVL day #5 placed 03/08 Critical Care: The total critical care time was 35 minutes. Time to perform other separately billable procedures was not included in the critical care time. I discussed with at bedside. Care plan discussed all questions answered -> .Noni Stokes. Plan for withdrawal care today at 1 PM Ramo Almaraz MD Mar 12, 2017 09:19
--- NOTE | 2017-03-12 11:55 | HHI.NPPN ---
Subjective Complaints: Obesity General Problems: Edema Renal Failure: Acute Interval History Remains intubated, unresponsive. Not on pressors. 3L UF yesterday. Likely to be withdrawal from life support today. (Katina Park) Review of Systems General General Remarks unable to evaluate (Katina Park) Objective Data Data 03/11/17 03/12/17 18:59 06:59 Intake Total 1066 ml 1419 ml Output Total 3200.0 ml 510.0 ml Balance -2134.0 ml 909.0 ml IV Total 504 ml 675 ml Tube Feeding 502 ml 624 ml Other 60 ml 120 ml Output Urine Total 0 ml 40 ml Stool Total 200 ml 470 ml Tube Feeding Residual Discard 0 ml 0 ml Hemodialysis 3000 ml Vital Signs Date Time Temp Pulse Resp B/P Pulse Ox O2 Delivery O2 Flow Rate FiO2 03/12/17 11:13 98 40 03/12/17 10:00 111 03/12/17 08:00 124 03/12/17 08:00 40 03/12/17 08:00 98.3 124 20 140/79 96 03/12/17 07:54 98 40 03/12/17 06:00 108 03/12/17 04:21 97 50 03/12/17 04:00 98.4 101 18 127/61 96 03/12/17 04:00 101 03/12/17 04:00 50 03/12/17 02:00 97 03/12/17 01:18 98 50 03/12/17 00:00 50 03/12/17 00:00 98.9 102 18 122/61 99 03/12/17 00:00 102 03/11/17 22:00 91 03/11/17 20:00 99.0 90 18 88/50 96 03/11/17 20:00 50 03/11/17 20:00 90 03/11/17 19:21 96 50 03/11/17 18:00 92 03/11/17 16:24 96 50 03/11/17 16:00 108 03/11/17 16:00 50 03/11/17 16:00 98.1 108 18 102/57 96 03/11/17 14:00 93 03/11/17 12:46 93 50 03/11/17 12:00 40 03/11/17 12:00 97.8 87 23 82/50 92 03/11/17 12:00 96 (Katina Pakr) -: 03/11/17 0335 03/11/17 0335 Tubes & Lines: Vas-Cath, Barrios Tubes & Lines Comment TLC right SC VC left IJ Drip Comment fentanyl, versed (Katina Park) Physical Exam General Appearance: Sleeping, Obese Appearance Remarks intubated, sedated, not following commands (Katina Park) Ears & Nose Ears & Nose Exam: Nasal Mucosa [place] (Katina Park) Throat Throat Exam: Oral Mucosa [place] & Moist (Katina Park) Pulmonary Resp Exam: Breath Sounds Equal, No Distress, Rhonchi, Decreased Bases, Diminished Breath Sounds Resp Remarks wheezing (Katina Park) Cardiology CV Exam: Normal Sinus Rhythm, Good Perfusion, Irregular, Tachycardia (Katina Park) Gastrointestinal/Abdomen GI Exam: Soft, Non-Tender, Bowel Sounds Present, Distended (Katina Park) Genitourinary Exam: Clear Urine (Katina Park) Musculoskeletal MS Exam: Joints Intact, Normal Tone, Unable to Ambulate (Katina Park) Integumentary Skin Exam: Clear, Warm, Dry, Intact (Katina Park) Extremeties Extremities Exam: Moderate Edema, Pitting Edema (Katina Park) Neurologic Neuro Exam: Unresponsive, Sedated (Katina Park) Assessment/Plan Assessment Summary: RAGHAVENDRA/Acute Renal Failure, Acute Tubular Necrosis, Fluid/ Volume Overload, Hypertension, Diabetes Mellitus Electrolyte Assessment: Hyperkalemia Problem List: (1) Acute renal failure superimposed on chronic kidney disease Plan: ATN from hypotension, renal hypoperfusion Vascath placed and HD was initiated 03/05 has been receiving HD daily since starting treatment aside from Thursday persistent fluid overload, 4L UF yesterday he is oliguric family to meet at 1pm today and likely decide to transfer to hospice, withdrawal life support measures if they decide to continue aggressive care, obtain labs in afternoon and he may need dialysis again discussed with nurse Avoid nephrotoxic agents and IVF in the meantime continue phoslo for hyperphosphatemia continue Nephro tube feeding prognosis is guarded to poor (2) NSTEMI (non-ST elevated myocardial infarction) Plan: Cardiology has signed off Catheterization was mentioned but postponed due to instability (3) CHF exacerbation Plan: worsened by acute MS. monitor fluid volume status UF with dialysis as needed/tolerated minimize IVF (4) Pneumonia Plan: was on Zosyn, Levaquin, and Bactrim, all antibiotics have been discontinued in light of possible withdrawal today ID signed off he is on steroids monitor clinically Blood cultures are negative , sputum cultures with Stenotrophomonas vent settings: A/C 18/600/50/10 will need tracheostomy , but pt apparently reported to family in the past that he would not want this (5) Type 2 diabetes mellitus Plan: continue insulin therapy in interim blood sugar elevated, of note he is on steroids recommend 140-180 mg/dL (Katina Park) Plan patient was seen and examined. Agree with above assessment and plan. (Pablo Miner MD) Problem Qualifiers (1) CHF exacerbation: Qualified Code: I50.9 - Acute on chronic congestive heart failure, unspecified congestive heart failure type (2) Pneumonia: Qualified Code: J18.1 - Pneumonia of right lower lobe due to infectious organism Katina Park Mar 12, 2017 11:55 Pablo Miner MD Mar 12, 2017 13:42
[2017-03-12] MEDS ORDERED: fentaNYL DRIP 250 ML IV SCH (13:45)
[2017-03-12] MEDS ORDERED: HYOSCYAMINE 0.125 MG TAB PO/SL ONE (13:45)
--- NOTE | 2017-03-12 13:51 | HHI.HCPN ---
Reason for visit a. To assist with evaluation and management of symptoms including: dyspnea, pain. b. To assist medical decision maker(s) with: better understanding of current medical conditions; weighing benefits/burdens of medical treatment options; making medical treatment decisions. . Subjective/Interval History Patient seen and examined in ICU. , 3 daughters and son in law at bedside. No significant clinical change overnight. Family is appropriately tearful. Amusement Centre Manager has visited. Family is ready to proceed with withdrawal of life support and transition to comfort measures. Anticipatory guidance again provided. Family will consider hospice in AM if patient survives. Questions answered. home list provided per family request. . Family/friend interactions See interval note. . Advance Directives Living Will: Never completed Health Care Surrogate: Never completed Durable Power of Sort Worker: Never completed Advance Directive Specifics Health Care Surrogate(s): Patient is incapacitated, uncertain if he will regain capacity. According to [place] statutes, health care proxy decision-making falls to the patient's spouse. . Significant change in goals: NO CODE. Family desires transition to comfort measures only with compassionate withdrawal of life support. . Objective Vital Signs Date Time Temp Pulse Resp B/P Pulse Ox O2 Delivery O2 Flow Rate FiO2 03/12/17 11:13 98 40 03/12/17 10:00 111 03/12/17 08:00 124 03/12/17 08:00 40 03/12/17 08:00 98.3 124 20 140/79 96 03/12/17 07:54 98 40 03/12/17 06:00 108 03/12/17 04:21 97 50 03/12/17 04:00 98.4 101 18 127/61 96 03/12/17 04:00 101 03/12/17 04:00 50 03/12/17 02:00 97 03/12/17 01:18 98 50 03/12/17 00:00 50 03/12/17 00:00 98.9 102 18 122/61 99 03/12/17 00:00 102 03/11/17 22:00 91 03/11/17 20:00 99.0 90 18 88/50 96 03/11/17 20:00 50 03/11/17 20:00 90 03/11/17 19:21 96 50 03/11/17 18:00 92 03/11/17 16:24 96 50 03/11/17 16:00 108 03/11/17 16:00 50 03/11/17 16:00 98.1 108 18 102/57 96 03/11/17 14:00 93 Intake & Output 03/12/17 03/12/17 07:00 19:00 Intake Total 1419 ml Output Total 510.0 ml 0 ml Balance 909.0 ml 0 ml IV Total 675 ml Tube Feeding 624 ml Other 120 ml Output Urine Total 40 ml Stool Total 470 ml Tube Feeding Residual Discard 0 ml 0 ml Physical Exam CONSTITUTIONAL/GENERAL: This is an adequately nourished patient, sedated on mechanical ventilation TUBES/LINES/DRAINS: ETT, OG, right IJ central line, left vas cath, Barrios catheter, rectal tube, SCD's SKIN: No jaundice, rashes, or lesions. Ecchymoses on upper extremities. Skin temperature appropriate. Not diaphoretic. EYES: Eyes closed. CARDIOVASCULAR: Regular rate and rhythm without murmurs, gallops, or rubs. Unable to assess JVD given central line/ vas-cath placement. Peripheral pulses symmetric. RESPIRATORY/CHEST: Symmetric, unlabored respirations on vent. Bilateral scattered crackles. GASTROINTESTINAL: Abdomen soft, nondistended. No guarding. Bowel sounds hypoactive. Rectal tube for liquid stool. GENITOURINARY: Without palpable bladder distension. Barrios catheter in place. MUSCULOSKELETAL: Extremities with edema. No mottling or clubbing. NEUROLOGICAL: sedated. PSYCHIATRIC: sedated. . Diagnostic Tests Laboratory Laboratory Tests Test 03/10/17 03/10/17 03/10/17 03/10/17 03:15 05:25 09:02 14:50 White Blood Count 10.6 TH/MM3 10.1 TH/MM3 (4.0-11.0) (4.0-11.0) Red Blood Count 2.65 MIL/MM3 2.64 MIL/MM3 (4.50-5.90) (4.50-5.90) Hemoglobin 8.2 GM/DL 8.1 GM/DL 8.5 GM/DL (13.0-17.0) (13.0-17.0) (13.0-17.0) Hematocrit 23.4 % 23.4 % 25.2 % (39.0-51.0) (39.0-51.0) (39.0-51.0) Mean Corpuscular Volume 88.0 FL 88.9 FL (80.0-100.0) (80.0-100.0) Mean Corpuscular Hemoglobin 30.9 PG 30.6 PG (27.0-34.0) (27.0-34.0) Mean Corpuscular Hemoglobin 35.1 % 34.5 % Concent (32.0-36.0) (32.0-36.0) Red Cell Distribution Width 14.7 % 14.9 % (11.6-17.2) (11.6-17.2) Platelet Count 121 TH/MM3 121 TH/MM3 (150-450) (150-450) Mean Platelet Volume 9.9 FL 9.7 FL (7.0-11.0) (7.0-11.0) Neutrophils (%) (Auto) 94.0 % 94.2 % (16.0-70.0) (16.0-70.0) Lymphocytes (%) (Auto) 1.7 % 1.6 % (9.0-44.0) (9.0-44.0) Monocytes (%) (Auto) 4.1 % (0.0-8.0) 4.0 % (0.0-8.0) Eosinophils (%) (Auto) 0.0 % (0.0-4.0) 0.0 % (0.0-4.0) Basophils (%) (Auto) 0.2 % (0.0-2.0) 0.2 % (0.0-2.0) Neutrophils # (Auto) 10.0 TH/MM3 9.5 TH/MM3 (1.8-7.7) (1.8-7.7) Lymphocytes # (Auto) 0.2 TH/MM3 0.2 TH/MM3 (1.0-4.8) (1.0-4.8) Monocytes # (Auto) 0.4 TH/MM3 0.4 TH/MM3 (0-0.9) (0-0.9) Eosinophils # (Auto) 0.0 TH/MM3 0.0 TH/MM3 (0-0.4) (0-0.4) Basophils # (Auto) 0.0 TH/MM3 0.0 TH/MM3 (0-0.2) (0-0.2) CBC Comment DIFF FINAL DIFF FINAL Differential Comment Sodium Level 139 MEQ/L 139 MEQ/L (136-145) (136-145) Potassium Level 5.1 MEQ/L 5.4 MEQ/L 4.4 MEQ/L (3.5-5.1) (3.5-5.1) (3.5-5.1) Chloride Level 98 MEQ/L 98 MEQ/L (98-107) (98-107) Carbon Dioxide Level 29.1 MEQ/L 28.1 MEQ/L (21.0-32.0) (21.0-32.0) Anion Gap 12 MEQ/L (5-15) 13 MEQ/L (5-15) Blood Urea Nitrogen 122 MG/DL 129 MG/DL (7-18) (7-18) Creatinine 5.29 MG/DL 5.56 MG/DL (0.60-1.30) (0.60-1.30) Estimat Glomerular Filtration 11 ML/MIN (>89) 10 ML/MIN (>89) Rate Random Glucose 205 MG/DL 226 MG/DL (74-106) (74-106) Calcium Level 8.1 MG/DL 8.3 MG/DL (8.5-10.1) (8.5-10.1) Phosphorus Level 8.6 MG/DL 7.9 MG/DL (2.5-4.9) (2.5-4.9) Magnesium Level 2.9 MG/DL 2.9 MG/DL (1.5-2.5) (1.5-2.5) Albumin 3.3 GM/DL 3.3 GM/DL (3.4-5.0) (3.4-5.0) Total Bilirubin 0.6 MG/DL (0.2-1.0) Aspartate Amino Transf 11 U/L (15-37) (AST/SGOT) Alanine Aminotransferase 29 U/L (12-78) (ALT/SGPT) Alkaline Phosphatase 45 U/L (45-117) Total Protein 5.8 GM/DL (6.4-8.2) Blood Type AB POSITIVE Crossmatch Leukocyte-Reduced Red Blood Cells Blood Bank Comment Test 03/10/17 03/10/17 03/11/17 16:08 22:40 03:35 Crossmatch Leukocyte-Reduced Red Blood Cells Blood Bank Comment Hemoglobin 9.4 GM/DL 9.7 GM/DL (13.0-17.0) (13.0-17.0) Hematocrit 27.5 % 29.1 % (39.0-51.0) (39.0-51.0) White Blood Count 8.3 TH/MM3 (4.0-11.0) Red Blood Count 3.31 MIL/MM3 (4.50-5.90) Mean Corpuscular Volume 87.9 FL (80.0-100.0) Mean Corpuscular Hemoglobin 29.3 PG (27.0-34.0) Mean Corpuscular Hemoglobin 33.3 % Concent (32.0-36.0) Red Cell Distribution Width 16.1 % (11.6-17.2) Platelet Count 112 TH/MM3 (150-450) Mean Platelet Volume 10.1 FL (7.0-11.0) Neutrophils (%) (Auto) 93.7 % (16.0-70.0) Lymphocytes (%) (Auto) 1.8 % (9.0-44.0) Monocytes (%) (Auto) 4.2 % (0.0-8.0) Eosinophils (%) (Auto) 0.1 % (0.0-4.0) Basophils (%) (Auto) 0.2 % (0.0-2.0) Neutrophils # (Auto) 7.8 TH/MM3 (1.8-7.7) Lymphocytes # (Auto) 0.2 TH/MM3 (1.0-4.8) Monocytes # (Auto) 0.4 TH/MM3 (0-0.9) Eosinophils # (Auto) 0.0 TH/MM3 (0-0.4) Basophils # (Auto) 0.0 TH/MM3 (0-0.2) CBC Comment DIFF FINAL Differential Comment Sodium Level 141 MEQ/L (136-145) Potassium Level 5.5 MEQ/L (3.5-5.1) Chloride Level 98 MEQ/L (98-107) Carbon Dioxide Level 29.4 MEQ/L (21.0-32.0) Anion Gap 14 MEQ/L (5-15) Blood Urea Nitrogen 117 MG/DL (7-18) Creatinine 4.98 MG/DL (0.60-1.30) Estimat Glomerular Filtration 11 ML/MIN (>89) Rate Random Glucose 257 MG/DL (74-106) Calcium Level 8.8 MG/DL (8.5-10.1) Phosphorus Level 8.0 MG/DL (2.5-4.9) Albumin 3.3 GM/DL (3.4-5.0) Result Diagram: 03/11/17 0335 03/11/17 0335 Microbiology Microbiology Date/Time Procedure Status Source Growth 03/07/17 17:20 Gram Stain - Final Complete Bronchial Washings Bronchial 03/07/17 17:20 Bronchial Culture - Final Complete Bronchial Washings Bronchial LIGHT GROWTH NORMAL RESPIRATORY JEN 03/07/17 17:20 Fungal Smear - Final Resulted Bronchial Washings Bronchial NO FUNGAL ELEMENTS SEEN. 03/07/17 17:20 Fungal Culture - Preliminary Resulted Bronchial Washings Bronchial 03/07/17 17:20 Acid Fast Stain - Final Resulted Bronchial Washings Bronchial NO ACID FAST BACILLI SEEN 03/07/17 17:20 Mycobacterial Culture Resulted Bronchial Washings Bronchial Pending Imaging Last Impressions Chest X-Ray 03/10/17 0000 Signed Impressions: Service Date/Time: Friday, March 10, 2017 20:19 - CONCLUSION: Stable chest. No pneumothorax. Neto Duenas MD Abdomen/Pelvis CT 03/10/17 0000 Signed Impressions: Service Date/Time: Friday, March 10, 2017 10:20 - CONCLUSION: 1. There is no retroperitoneal hematoma. 2. Bilateral pleural effusions right greater than left. 3. A nonspecific, nonobstructed bowel gas pattern most consistent with a mild ileus and/or gastroenteritis. Raul Craig MD Abdomen X-Ray 03/07/17 0000 Signed Impressions: Service Date/Time: Tuesday, March 07, 2017 13:26 - CONCLUSION: No acute disease. Bg Faust MD Thoracentesis 03/03/17 0000 Signed Impressions: Service Date/Time: Friday, March 03, 2017 14:09 - CONCLUSION: Uncomplicated CT-guided right thoracentesis. Cash Cowan MD Chest CT 03/02/17 0000 Signed Impressions: Service Date/Time: Thursday, March 02, 2017 11:42 - CONCLUSION: Large bilateral pleural effusions and bibasilar consolidation and/or compressive collapse not present on the study from 2015. K. Nitish Nguyen MD Lower Extremity Ultrasound 02/27/17 0000 Signed Impressions: Service Date/Time: Monday, February 27, 2017 09:13 - CONCLUSION: Normal examination. Evaristo Massey MD Head CT 02/24/17 0000 Signed Impressions: Service Date/Time: Friday, February 24, 2017 18:59 - CONCLUSION: 1. No acute hemorrhage or mass effect. 2. Acute sinusitis in the left maxillary sinus. Raul Craig MD Cervical Spine MRI 02/24/17 0000 Signed Impressions: Service Date/Time: Friday, February 24, 2017 22:46 - CONCLUSION: 1. Small central protrusion at C4-5 without canal stenosis. 2. Small central protrusion at C3-4 with minimal extruded component. 3. Mild broad-based disc bulges at C5- 6 and C6-7 levels without canal stenosis. Neto Duenas MD Cervical Spine CT 02/24/17 0000 Signed Impressions: Service Date/Time: Friday, February 24, 2017 19:02 - CONCLUSION: 1. Moderate narrowing of left neural foramina at the C3-4 level secondary to hypertrophic change involving the facet joint. 2. Mild degenerative change at the C5-6 and C6-7 levels. 3. Mild disc osteophyte complex at C5-6 with mild narrowing of the neural foramina. Raul Craig MD Brain MRI 02/24/17 0000 Signed Impressions: Service Date/Time: Friday, February 24, 2017 22:46 - CONCLUSION: 1. No acute intracranial abnormality. 2. Left maxillary sinus disease. 3. No acute infarction. Neto Duenas MD . Procedures * 03/10/17 Bronchoscopy * 03/08/17 right IJ central line placement * 03/07/17 bronchoscopy * 03/05/17 left IJ Vas-cath placement * 03/05/17 left thoracentesis with removal of 1000 mL pleural fluid * 02/26/17 - [place]- Luisa catheter placement. * 02/26/17 - Right IJ central line placement. * 02/26/17- Intubation * 02/26/17 CODE BLUE . Assessment and Plan Disease Oriented Problem List: (1) Coronary artery disease (2) NSTEMI (non-ST elevated myocardial infarction) (3) Atrial fibrillation (4) Acute CHF (5) Shock (6) Acute renal failure superimposed on chronic kidney disease (7) Pneumonia (8) COPD exacerbation (9) Bilateral lower leg cellulitis (10) Type 2 diabetes mellitus Symptom Scale: (1) Dyspnea 0-10 Scale: Unable to quantify Comment: Underlying COPD, remains on mechanical ventilation. (2) Pain 0-10 Scale: Unable to quantify Comment: Potential sources of pain include NSTEMI, peripheral neuropathy, general debility, prolonged hospitalization, mechanical ventilation another tubes, chronic back pain. On fentanyl 250 g per hour appears comfortable during my visit today. . Pertinent Non-Medical Issues Psychosocial: to Noni for 55 years. They have 3 adult daughters all here from [place] (2 from [place] and 1 lives in [place], [place]) Spiritual: Confucianist rhonda., Requests machine cloth trimmer visit for last rights on 03/12/17. Care to coordinate. Legal: Patient is incapacitated, uncertain if he will regain capacity. According to [place] statutes, health care proxy decision-making falls to the patient's spouse. Ethical issues impacting care: No known concerns at this time. . Important Contacts * Noni Stokes, /HCP: [phone] * Rachelle, daughter: [phone] lives in [place] * Macrina, daughter: [phone] lives in [facility] * Christine, daughter: [phone] lives in [place] . Prognosis Mr. Stokes is a 76-year-old male with multiple medical comorbidities including underlying COPD, coronary artery disease, uncontrolled diabetes he's admitted with NSTEMI (not a candidate for cardiac intervention at this time given current condition), cardiomyopathy, respiratory failure on mechanical ventilation, pneumonia, acute on chronic renal failure now on hemodialysis. Overall prognosis poor for meaningful recovery. . Code Status: No Code Plan * Decision Maker: Patient is incapacitated, patient will not regain capacity. According to [place] statutes, health care proxy decision-making falls to the patient's spouse. * NO CODE * Palliative care met with family including , 3 daughters and son in law. Family is all in agreement patient would want life prolonging measures withdrawn. They desire to proceed with compassionate withdrawal of life support and transition to comfort measures. Family will consider transfer to hospice care center in AM if he survives. * Confucianist rhonda, machine cloth trimmer visited provided [facility] of [employer]. * SYMPTOMS: Pain: potential sources of pain include NSTEMI, peripheral neuropathy, general debility, prolonged hospitalization, mechanical ventilation another tubes, chronic back pain. On fentanyl 250 g per hour appears comfortable during my visit today. Dyspnea: sedated fentanyl/Versed on mechanical ventilation, FI 02 40% PEEP 10. No new medication recommendations at this time. * Palliative care will continue to follow throughout hospital course to assist with symptom management and clarification of goals as needed. . Attestation To help prompt me to consider important information that might be impacting today's encounter and assessment, information from prior notes written by myself or my colleagues may have been "brought forward" into today's note. My signature on this note, however, is an attestation that I personally performed the exam, history, and/or decision-making noted today, and, unless otherwise indicated, the interactions with patient, family, and staff as well as the review of records all occurred today. I also attest that the listed assessment and stated plan reflect my best clinical judgment today based on the combination of historical information, prior notes, and today's exam/ interactions. When time spent is documented, it refers only to time spent today by the signer, or if indicated, combined time spent today by collaborating physician/nurse practitioner. LEFTY CASTILLO Mar 12, 2017 13:51
[2017-03-12] MEDS ORDERED: LORazepam 2 MG/ML VIAL IV ONE ×2 (14:00)
[2017-03-12] MEDS ORDERED: HYDROmorphone HCL PF 2 MG/ML VIAL IV ONE (14:00)
[2017-03-12] MEDS ORDERED: HYDROmorphone HCL PF 2 MG/ML VIAL IV PRN ×2 (14:15)
[2017-03-12] MEDS ORDERED: BISACODYL 10 MG SUPP RECTAL PRN (14:15)
[2017-03-12] MEDS ORDERED: ACETAMINOPHEN 650 MG SUPP RECTAL PRN (14:15)
[2017-03-12] MEDS ORDERED: LORazepam 2 MG/ML VIAL IV PRN ×2 (14:15)
[2017-03-12] MEDS ORDERED: FUROSEMIDE 20 MG/2 ML VIAL IV PRN (14:15)
[2017-03-12] MEDS ORDERED: HYDROmorphone HCL PF 2 MG/ML VIAL IV SCH (16:00)
--- NOTE | 2017-04-16 12:35 | HHI.DS ---
Discharge Summary Admission Date Feb 25, 2017 at 14:17 Admitting Diagnosis Pneumonia/Cellulitis/CHF/COPD (1) Pneumonia ICD Code: J18.9 Brief History His room patient, your physician communication, and review of medical records. Patient reported that he came to the hospital because he just has been falling down. He reports he was not able to grab anything with his hands. He stated this is bilateral. He reports that he was also an steady on his feet and did fall down at home. Landed on his buttock. Denies any head trauma. Denies being on blood thinners at home. He denies syncope. On further questioning, patient also reports of having shortness of breath and cough in the past few days to a week or so. He reports that he also happens to have chest pain this morning which went all across his chest. He denies any recent fevers/nausea/vomiting/diarrhea/urinary burning or pain on urination. Denies any hematemesis/hematochezia/melena/hematuria. Patient states that he wears long pumping device bilaterally in his lower extremities for lymphedema. He stated this was [facility] and that it really helps with his lymphedema. He denies any recent prolonged travels. Denies any calf asymmetry or pain. PE at Discharge GENERAL: Well-nourished, well-developed pleasant elderly male patient in [place]. SKIN: Warm and dry. No rash. HEENT: Normocephalic. Atraumatic. Pupils equal and round. Mucous membranes pink and moist. NECK: Supple. Trachea midline. CARDIOVASCULAR: Tachycardic, regular rhythm. S1, S2 noted. No murmur appreciated. RESPIRATORY: No accessory muscle use. Poor air entry bilaterally with significant wheezing throughout all lung alexis, with bibasilar crackles, worse on the right. GASTROINTESTINAL: Abdomen soft, non-tender, nondistended. Normoactive bowel sounds x4. MUSCULOSKELETAL: No obvious deformities. Nonpitting lymphedema bilateral lower extremities. NEUROLOGICAL: Awake and alert. No obvious cranial nerve deficits. Motor grossly within normal limits. Normal speech. PSYCHIATRIC: Appropriate mood and affect; insight and judgment normal. Hospital Course Per nocturnal hydro electric station operator 02/26/17 Responded to CODE BLUE overhead. Upon arrival to F pod discovered that patient was awake and normotensive, with sinus tachycardia in the 150s in severe respiratory distress. He had not lost a pulse but CODE BLUE had been called to facilitate rapid evaluation and stabilization. 76-year-old male with past history of obesity, COPD, obstructive sleep apnea on CPAP, CHF, peripheral neuropathy, hypertension, diabetes, hyperlipidemia, obesity who receives medical [facility] at the [facility]. He presented to [facility] emergency department 02/25/17 with falls and difficulty with balance. He also reported that he was having shortness of breath and cough for several days. Was not febrile in hospital. On the day of admission he had some chest pain across his chest. Troponins negative. He was treated for pneumonia with Rocephin and azithromycin. He was placed on steroids Solu-Medrol 60 mg IV every 6 hours. Received Lasix at about 6 PM on due to concern for volume overload. Echo had poor images but systolic function appeared reduced. Tonight he developed acutely worsening shortness of breath and Dr. Galicia presented to the emergency Department to evaluate him where he was found to be tachypneic and wheezing. He was given a neb and preparations were being made to place him on BiPAP. He was becoming less responsive and was looking upward when I arrived and respiratory was placing on Bipap. He was in extremis and it was felt he would need emergent intubation prior to transfer to ICU. He denied chest pain. He was preoxygenated on Bipap, did seem to become more alert and nodded that he agreed with proceeding with intubation. He was intubated in F pod and then [place] [facility] Upon arrival [place] [facility] he was in atrial fibrillation in the 130s. SBP was 90/50 then 64/40. Central line was placed and he converted to sinus tachycadia in 101-130s. Subsequently he was normotensive with MAP 71. He was also sedated with propofol during the hypotension, improved after transition to fentanyl drip. 02/27: PA catheter placed yesterday. PA catheter readings are more consistent distributive/septic shock with high cardiac output with low SVR. CO 10-11. CI 2.8 SVRI [id number]. D/W Dr Butts. Will hold off Flolan challenge at this time for high PA pressure- mean 59-60. After weaning pressors, PA mean pressure is about 40. Patient's hemodynamics have improved, vasopressin is off now, Levophed is at 4 mics per minute. Give Bumex 2 mg 1 on Bumex drip at 2 mg per hour per Dr. Miner 02/28: Afebrile. Arousable on the vent and moves 4 extremities spontaneously but doesn't follow commands. No bowel movement since admission. Currently nothing by mouth. Remains on low-dose vasopressors including vasopressin and Levophed 03/01: [place] Luisa catheter removed yesterday. Adequate urine output on Bumex drip at 1 mg an hour. Afebrile. Currently replaced potassium. 03/02: Afebrile. Bumex drip has been discontinued. Currently replaced potassium. Positive BM overnight. We'll attempt spontaneous breathing trials today. 03/03: Afebrile. Adequate urine output. Positive BM. Tolerating tube feeds. Heparin drip for thoracentesis. Eyes are open but not following commands. Continues on Versed and fentanyl drips. 03/04: Afebrile. Status post thoracentesis yesterday -1150 years transudative. Positive BM 1. Tolerating tube feeding. Hypertensive. Hydralazine added per cardiology. 03/05: Patient remains intubated sedated. Bedside ultrasound shows Moderate left pleural effusion. Agitated on lightening sedation 03/06: Remains intubated sedated. Overnight FiO2 had to increase to 100 % due to desaturation, now reduced to 60% again. Chest x-ray shows bilateral pulmonary edema. Nephrology contacted- hemodialysis today with attempt at 4L removal. Status post bedside thoracentesis (Left side) yesterday with 1L transudative fluid removal 03/07: Tmax 99.2. Currently 99. Positive bloody secretions from ET tube. Heparin drip has been off since yesterday. Desaturated overnight FiO2 currently down to 40%. PEEP set at.8. Resting in bed in no acute distress. Eyes open and moves all 4 extremity spontaneously but not following commands. 03/08: Afebrile currently. Status post bronchoscopy yesterday with copious amounts of hemorrhagic secretions without obvious source. Transfuse 3 units. Receives overnight. Again no obvious source of bleeding. Tolerating tube feeding. Positive BM. 03/09: Tmax 99. Positive BM. Noted decreased blood pressure overnight. Increased PEEP: Concomitant cause. Chest x-ray today pending. ARDS type picture yesterday. Plan for hemodialysis today. 03/10: PEEP down to 10. From 15. Hemoglobin dropped from 10-8 overnight. No obvious source of bleeding. CT abdomen/cells reveal no retroperitoneal hematoma. He is to have bloody secretions from ET tube. Heparin drip as been off for several days. GI will be consulted. Hemoccult pending. 03/11: Status post bronchoscopy yesterday for gross hemoptysis. No focal site of bleeding. Received bicarbonate which seemed to stop the bleeding. Very scant bloody secretions seen. FiO2 down 40%. Hemodialysis planned for today. Noted potassium 5.5. Family meeting planned for 11 with palliative care Subjective 03/12: Afebrile. Family plantar withdrawal care today at 1 PM. Remains on 50% FiO2. PEEP 10. Hyper catabolic with high potassium again this Ramo Amado MD Apr 16, 2017 12:34
--- NOTE | 2017-04-16 12:37 | HHI.DS ---
Summary Note Date of : Mar 12, 2017 Time Of : 1525 Admission Date Feb 25, 2017 at 14:17 Admitting Diagnosis Pneumonia/Cellulitis/CHF/COPD Diagnosis at Time of : (1) Pneumonia ICD Code: J18.9 Diagnosis: Principal (2) Upper extremity anomaly ICD Code: Q74.0 Diagnosis: Principal (3) NSTEMI (non-ST elevated myocardial infarction) ICD Code: I21.4 Diagnosis: Principal (4) Type 2 diabetes mellitus ICD Code: E11.9 Diagnosis: Principal (5) CHF exacerbation ICD Code: I50.9 Diagnosis: Principal (6) Atrial fibrillation ICD Code: I48.91 Diagnosis: Principal (7) Acute renal failure superimposed on chronic kidney disease ICD Code: N17.9 Diagnosis: Principal (8) Shock ICD Code: R57.9 Diagnosis: Principal (9) Acute CHF ICD Code: I50.9 Diagnosis: Principal (10) Dyspnea ICD Code: R06.00 Diagnosis: Principal (11) Pain ICD Code: R52 Diagnosis: Principal (12) COPD exacerbation ICD Code: J44.1 Diagnosis: Principal (13) Bilateral lower leg cellulitis ICD Code: L03.116 Diagnosis: Principal (14) Coronary artery disease ICD Code: I25.10 Diagnosis: Principal Procedures Documented Brief History His room patient, your physician communication, and review of medical records. Patient reported that he came to the hospital because he just has been falling down. He reports he was not able to grab anything with his hands. He stated this is bilateral. He reports that he was also an steady on his feet and did fall down at home. Landed on his buttock. Denies any head trauma. Denies being on blood thinners at home. He denies syncope. On further questioning, patient also reports of having shortness of breath and cough in the past few days to a week or so. He reports that he also happens to have chest pain this morning which went all across his chest. He denies any recent fevers/nausea/vomiting/diarrhea/urinary burning or pain on urination. Denies any hematemesis/hematochezia/melena/hematuria. Patient states that he wears long pumping device bilaterally in his lower extremities for lymphedema. He stated [facility] and that it really helps with his lymphedema. He denies any recent prolonged travels. Denies any calf asymmetry or pain. Significant Findings NEURO/PSYCH: Acute encephalopathy - secondary to hypercapnia and hypoxemia Peripheral neuropathy Allergic rhinitis Currently off propofol and fentanyl r for sedation/analgesia while intubated. Goal of RASS -2. Daily sedation vacation MRI brain 02/24 - no acute abnormality MRI C-spinesmall central protrusion at C3/C4 with mild extruded central spinal cord C4-C5 without canal stenosis with mild disc bulging C5/6 and C6/7 EEG 02/27 revealed moderate to severe encephalopathy. No epileptiform activity Questionable history of EtOH use/abuse. We'll continue on thiamine/folate and multivitamin today Neurontin level 2.3. Previously on 600 mg 3 times a day for shingles pain management. Currently on hold Holding Flonase twice a day/Zyrtec 5 mill grams daily. Resume as clinically indicated RESP: Acute hypoxemic and hypercapnic respiratory failure Acute COPD exacerbation Bilateral large pl effusions History of asthma? Acute on chronic pulmonary artery hypertension Objective sleep apnea - noncompliant with CPAP History of tobacco abuse PRVC 18/600/1.3/. Ventilator bundle DuoNeb every 4 hours with albuterol every 2 hours when necessary Continue Pulmicort 0.5/2 one inhalation twice a day Solumedrol 20 milligrams every q24to be weaned over the next several days s/p thoracentesis left-sided 03/05 with 1L removed -transudate Right thoracentesis 03/03 likely transudative. -1150 Home medication regimen is Symbicort 160/4.5 to press twice a day, Spiriva 18 inhalation daily and Ventolin 4 times a day with duo nebs aerosols for breakthrough every 4 hours when necessary According to records, noncompliant with CPAP for SEBASTIAN Airway edema noted particularly large arytenoid edema noted on intubation 02/26 with anterior airway. Intubated with Glidescope and 7.5 ETT. Bronchoscopy 03/07 revealed no obvious source of bleeding. Bloody secretions throughout. See note Will need tracheostomy aggressive care to be continued Cardiovascular: Pulmonary edema Shock, distributive/septic resolved Acute on chronic systolic heart failure EF 25-30% Moderate Moderate to severe TR NSTEMI Paroxysmal atrial fibrillation/flutter History of Hypertension Hyperlipidemia History of coronary artery disease Currently off all vaso pressors. Additional fl removal today with HD (target 3L) PAC placed 02/26-initially distributive shock (CI 2.8, SVRI 1300). Cardiac index at 2.1. 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 Butts IV heparin for NSTEMI and A Fib rate discontinued secondary to hemoptysis. Bumex 2 mg IV 1 02/27 and initiated Bumex infusion currently discontinued as of 03/03 Continue aspirin 81 mg daily Switched amiodarone drip secondary to 7 beat of V. tach at 0953 03/07 patient switched back to 400 twice a day 03/08 Troponin peaked at 27. Left heart catheterization when clinically stable Continue atorvastatin 80 mg daily at bedtime for dyslipidemia Unable to use beta charles secondary due to hypotension. On Lopressor 200 mg daily at home. Other blood pressures include lisinopril 40 mg daily and HCTZ 12.5 mg daily. On hold due to acute kidney injury Started hydralazine 5 milligrams IV every [address] Butts Echo 02/27: - Systolic function was severely reduced 25% to 30%. Diffuse hypokinesis. -Aortic valve: moderate stenosis. Tricuspid valve: Moderate/severe regurgitation. SUZAN 70 mmHg Echo 03/06 -- Left ventricle: The cavity size was mildly dilated. Wall thickness was increased in a pattern of mild LVH. There was concentric hypertrophy. Systolic function was severely reduced. The estimated ejection fraction was in the range of 20% to 25%. Diffuse hypokinesis. - Aortic valve: Valve mobility was mildly restricted. There was mild to moderate stenosis. Valve area: 1.37cm^2 (VTI). Valve area: 1.13cm^2 (Vmax). - Mitral valve: Mild regurgitation. - Left atrium: The atrium was mildly dilated. - Right ventricle: The cavity size was mildly dilated. - Atrial septum: No defect or patent foramen ovale was identified. - Tricuspid valve: Mild regurgitation. - Pulmonary arteries: PA peak pressure: 69mm Hg (S). Impressions: No colorflow noted across the ventricular septum concerning for a VSD. No papillary muscle ruptures noted. GI: Constipation Glucerna 1.5 goal 55 cc an hour Protonix 40 mg IV daily Colace and Senokot twice a day for bowel regimen Having BM Start Reglan 5 every 8 for high residual KUB 03/07 revealed nonspecific bowel gas pattern. : BPH Holding doxazosin 8 mg daily light of hypotension Maintain Barrios for accurate I's and O's in a critically ill patient FEN/RENAL: Acute kidney injury/ATN Monitor intake and output. Monitor electrolytes Bumex discontinued HD started 03/05, 2.5L fluid removed on 03/10. Hemodialysis is planned for today ID: Acute community acquired pneumonia Stenotrophomonas Septic shock-resolved Continue Zosyn ->Levaquin started 03/06 Bactrim started 03/09 discontinued his Zithromax after 8 days. Microbiology: lood culture 2 setsno growth to date 02/25sputum - no growth 02/25urine Legionella and pneumococcal antigen negative 02/25influenza screen negative 02/26 - urine - no growth 02/26 - blood cultures 2 - no growth 03/06: sputum culture - stenotrophomonas 03/07 - bronchoscopy -[place] Consult infectious disease with resistance stenotrophomonas with renal failure HEME: Normocytic anemia Leukocytosis Thrombocytopenia No indication for transfusion of blood products at this time Heparin drip off secondary to bloody secretions. 3 units PRBCs 03/07. Unknown if from hemodilution versus renal failure however no active bleeding appreciated currently. Transfuse 1 units PRBCs today. Recheck hemogram after transfusion. GI consulted for anemia. Possible PEG tube placed. 03/10 CT/pelvis revealed possible early ileus. Right greater than left pleural effusion. No retroperitoneal hematoma. ENDO: Poorly controlled diabetes mellitus - hemoglobin A1c of 8.6 Levemir 65 units twice a day with sliding scale insulin 4/moderate regimen. 21 units sliding scale insulin past 24 hours At home on Lantus 35 units twice a day and Novulin R 15 units 3 times a day with meals MSK Chronic lymphedema Osteoporosis/osteoarthritis Lac-Hydrin twice a day for lower extremity lymphedema 02/27 venous Dopplers showed no DVT Hold Risedronate 35 mg mg weekly for osteoporosis PROPH: Protonix 40 mg IV daily for stress ulcer prophylaxis. Heparin drip has been held secondary to bloody secretions. We'll start subcutaneous ACCESS: Right subclavian central venous line placed 02/26-03/08 Right IJ Cordis/day #4 discontinued 03/02 LIJ Vascath placed 03/05/17 day #8 Right IJ CVL day #5 placed 03/08 Critical Care: The total critical care time was 35 minutes. Time to perform other separately billable procedures was not included in the critical care time. I discussed with at bedside. Care plan discussed all questions answered -> .Noni Stokes. Plan for withdrawal care today at 1 PM Imaging Last Impressions Chest X-Ray 03/10/17 0000 Signed Impressions: Service Date/Time: Friday, March 10, 2017 20:19 - CONCLUSION: Stable chest. No pneumothorax. Neto Duenas MD Abdomen/Pelvis CT 03/10/17 0000 Signed Impressions: Service Date/Time: Friday, March 10, 2017 10:20 - CONCLUSION: 1. There is no retroperitoneal hematoma. 2. Bilateral pleural effusions right greater than left. 3. A nonspecific, nonobstructed bowel gas pattern most consistent with a mild ileus and/or gastroenteritis. Raul Craig MD Abdomen X-Ray 03/07/17 0000 Signed Impressions: Service Date/Time: Tuesday, March 07, 2017 13:26 - CONCLUSION: No acute disease. Bg Faust MD Thoracentesis 03/03/17 0000 Signed Impressions: Service Date/Time: Friday, March 03, 2017 14:09 - CONCLUSION: Uncomplicated CT-guided right thoracentesis. Cash Cowan MD Chest CT 03/02/17 0000 Signed Impressions: Service Date/Time: Thursday, March 02, 2017 11:42 - CONCLUSION: Large bilateral pleural effusions and bibasilar consolidation and/or compressive collapse not present on the study from 2015. Travis Nguyen MD Lower Extremity Ultrasound 02/27/17 0000 Signed Impressions: Service Date/Time: Monday, February 27, 2017 09:13 - CONCLUSION: Normal examination. Evaristo Massey MD Head CT 02/24/17 0000 Signed Impressions: Service Date/Time: Friday, February 24, 2017 18:59 - CONCLUSION: 1. No acute hemorrhage or mass effect. 2. Acute sinusitis in the left maxillary sinus. Raul Craig MD Cervical Spine MRI 02/24/17 0000 Signed Impressions: Service Date/Time: Friday, February 24, 2017 22:46 - CONCLUSION: 1. Small central protrusion at C4-5 without canal stenosis. 2. Small central protrusion at C3-4 with minimal extruded component. 3. Mild broad-based disc bulges at C5- 6 and C6-7 levels without canal stenosis. Neto Duenas MD Cervical Spine CT 02/24/17 0000 Signed Impressions: Service Date/Time: Friday, February 24, 2017 19:02 - CONCLUSION: 1. Moderate narrowing of left neural foramina at the C3-4 level secondary to hypertrophic change involving the facet joint. 2. Mild degenerative change at the C5-6 and C6-7 levels. 3. Mild disc osteophyte complex at C5-6 with mild narrowing of the neural foramina. Raul Craig MD Brain MRI 02/24/17 0000 Signed Impressions: Service Date/Time: Friday, February 24, 2017 22:46 - CONCLUSION: 1. No acute intracranial abnormality. 2. Left maxillary sinus disease. 3. No acute infarction. Neto Duenas MD Hospital Course NEURO/PSYCH: Acute encephalopathy - secondary to hypercapnia and hypoxemia Peripheral neuropathy Allergic rhinitis Currently off propofol and fentanyl r for sedation/analgesia while intubated. Goal of RASS -2. Daily sedation vacation MRI brain 02/24 - no acute abnormality MRI C-spinesmall central protrusion at C3/C4 with mild extruded central spinal cord C4-C5 without canal stenosis with mild disc bulging C5/6 and C6/7 EEG 02/27 revealed moderate to severe encephalopathy. No epileptiform activity Questionable history of EtOH use/abuse. We'll continue on thiamine/folate and multivitamin today Neurontin level 2.3. Previously on 600 mg 3 times a day for shingles pain management. Currently on hold Holding Flonase twice a day/Zyrtec 5 mill grams daily. Resume as clinically indicated RESP: Acute hypoxemic and hypercapnic respiratory failure Acute COPD exacerbation Bilateral large pl effusions History of asthma? Acute on chronic pulmonary artery hypertension Objective sleep apnea - noncompliant with CPAP History of tobacco abuse PRVC 18/600/1.01/23/50. Ventilator bundle DuoNeb every 4 hours with albuterol every 2 hours when necessary Continue Pulmicort 0.5/2 one inhalation twice a day Solumedrol 20 milligrams every q24to be weaned over the next several days s/p thoracentesis left-sided 03/05 with 1L removed -transudate Right thoracentesis 03/03 likely transudative. -1150 Home medication regimen is Symbicort 160/4.5 to press twice a day, Spiriva 18 inhalation daily and Ventolin 4 times a day with duo nebs aerosols for breakthrough every 4 hours when necessary According to records, noncompliant with CPAP for [place] Airway edema noted particularly large arytenoid edema noted on intubation 02/26 with anterior airway. Intubated with Glidescope and 7.5 ETT. Bronchoscopy 03/07 revealed no obvious source of bleeding. Bloody secretions throughout. See note Will need tracheostomy aggressive care to be continued Cardiovascular: Pulmonary edema Shock, distributive/septic resolved Acute on chronic systolic heart failure EF 25-30% Moderate Moderate to severe TR NSTEMI Paroxysmal atrial fibrillation/flutter History of Hypertension Hyperlipidemia History of coronary artery disease Currently off all vaso pressors. Additional fl removal today with HD (target 3L) PAC placed 02/26-initially distributive shock (CI 2.8, SVRI 1300). Cardiac index at 2.1. 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 Butts IV heparin for NSTEMI and A Fib rate discontinued secondary to hemoptysis. Bumex 2 mg IV 1 02/27 and initiated Bumex infusion currently discontinued as of 03/03 Continue aspirin 81 mg daily Switched amiodarone drip secondary to 7 beat of V. tach at 0953 03/07 patient switched back to 400 twice a day 03/08 Troponin peaked at 27. Left heart catheterization when clinically stable Continue atorvastatin 80 mg daily at bedtime for dyslipidemia Unable to use beta charles secondary due to hypotension. On Lopressor 200 mg daily at home. Other blood pressures include lisinopril 40 mg daily and HCTZ 12.5 mg daily. On hold due to acute kidney injury Started hydralazine 5 milligrams IV every [address] Butts Echo 02/27: - Systolic function was severely reduced 25% to 30%. Diffuse hypokinesis. -Aortic valve: moderate stenosis. Tricuspid valve: Moderate/severe regurgitation. SUZAN 70 mmHg Echo 03/06 -- Left ventricle: The cavity size was mildly dilated. Wall thickness was increased in a pattern of mild LVH. There was concentric hypertrophy. Systolic function was severely reduced. The estimated ejection fraction was in the range of 20% to 25%. Diffuse hypokinesis. - Aortic valve: Valve mobility was mildly restricted. There was mild to moderate stenosis. Valve area: 1.37cm^2 (VTI). Valve area: 1.13cm^2 (Vmax). - Mitral valve: Mild regurgitation. - Left atrium: The atrium was mildly dilated. - Right ventricle: The cavity size was mildly dilated. - Atrial septum: No defect or patent foramen ovale was identified. - Tricuspid valve: Mild regurgitation. - Pulmonary arteries: PA peak pressure: 69mm Hg (S). Impressions: No colorflow noted across the ventricular septum concerning for a VSD. No papillary muscle ruptures noted. GI: Constipation Glucerna 1.5 goal 55 cc an hour Protonix 40 mg IV daily Colace and Senokot twice a day for bowel regimen Having BM Start Reglan 5 every 8 for high residual KUB 03/07 revealed nonspecific bowel gas pattern. : BPH Holding doxazosin 8 mg daily light of hypotension Maintain Barrios for accurate I's and O's in a critically ill patient FEN/RENAL: Acute kidney injury/ATN Monitor intake and output. Monitor electrolytes Bumex discontinued HD started 03/05, 2.5L fluid removed on 03/10. Hemodialysis is planned for today ID: Acute community acquired pneumonia Stenotrophomonas Septic shock-resolved Continue Zosyn ->Levaquin started 03/06 Bactrim started 03/09 discontinued his Zithromax after 8 days. Microbiology: lood culture 2 setsno growth to date 02/25sputum - no growth 02/25urine Legionella and pneumococcal antigen negative 02/25influenza screen negative 02/26 - urine - no growth 02/26 - blood cultures 2 - no growth 03/06: sputum culture - stenotrophomonas 03/07 - bronchoscopy -[place] Consult infectious disease with resistance stenotrophomonas with renal failure HEME: Normocytic anemia Leukocytosis Thrombocytopenia No indication for transfusion of blood products at this time Heparin drip off secondary to bloody secretions. 3 units PRBCs 03/07. Unknown if from hemodilution versus renal failure however no active bleeding appreciated currently. Transfuse 1 units PRBCs today. Recheck hemogram after transfusion. GI consulted for anemia. Possible PEG tube placed. 03/10 CT/pelvis revealed possible early ileus. Right greater than left pleural effusion. No retroperitoneal hematoma. ENDO: Poorly controlled diabetes mellitus - hemoglobin A1c of 8.6 Levemir 65 units twice a day with sliding scale insulin 4/moderate regimen. 21 units sliding scale insulin past 24 hours At home on Lantus 35 units twice a day and Novulin R 15 units 3 times a day with meals MSK Chronic lymphedema Osteoporosis/osteoarthritis Lac-Hydrin twice a day for lower extremity lymphedema 02/27 venous Dopplers showed no DVT Hold Risedronate 35 mg mg weekly for osteoporosis PROPH: Protonix 40 mg IV daily for stress ulcer prophylaxis. Heparin drip has been held secondary to bloody secretions. We'll start subcutaneous ACCESS: Right subclavian central venous line placed 02/26-03/08 Right IJ Cordis/day #4 discontinued 03/02 LIJ Vascath placed 03/05/17 day #8 Right IJ CVL day #5 placed 03/08 Critical Care: The total critical care time was 35 minutes. Time to perform other separately billable procedures was not included in the critical care time. I discussed with at bedside. Care plan discussed all questions answered -> .Noni Stokes. Plan for withdrawal care today at 1 PM Ramo Almaraz MD Apr 16, 2017 12:37
== END 2017-03-12 15:25 | disposition expired | DRG 163 ==
LOC: NEPE 18:04 → NEDA 22:04 → INTOOBSV 22:04 → NEPFCDU 23:59 → OBSVTOIN 02-25 14:17 → HIME 02-26 01:30
PROVIDERS: ADMIT Emergency Medicine; ATTEND Emergency Medicine
PROC: 5A09357 Assistance with Respiratory Ventilation, Less than 24 Consecutive Hours, Continuous Positive Airway Pressure (ICD-10-PCS; principal; 2017-02-26)
PROC: 5A1955Z Respiratory Ventilation, Greater than 96 Consecutive Hours (ICD-10-PCS; 2017-02-26)
PROC: 0BH17EZ Insertion of Endotracheal Airway into Trachea, Via Natural or Artificial Opening (ICD-10-PCS; 2017-02-26)
PROC: 05H533Z Insertion of Infusion Device into Right Subclavian Vein, Percutaneous Approach (ICD-10-PCS; 2017-02-26)
PROC: 05HM33Z Insertion of Infusion Device into Right Internal Jugular Vein, Percutaneous Approach (ICD-10-PCS; 2017-02-26)
PROC: 02HQ32Z Insertion of Monitoring Device into Right Pulmonary Artery, Percutaneous Approach (ICD-10-PCS; 2017-02-26)
PROC: 0T9B70Z Drainage of Bladder with Drainage Device, Via Natural or Artificial Opening (ICD-10-PCS; 2017-02-26)
PROC: 0W993ZX Drainage of Right Pleural Cavity, Percutaneous Approach, Diagnostic (ICD-10-PCS; 2017-03-03)
PROC: 0W9B3ZX Drainage of Left Pleural Cavity, Percutaneous Approach, Diagnostic (ICD-10-PCS; 2017-03-05)
PROC: 05HN33Z Insertion of Infusion Device into Left Internal Jugular Vein, Percutaneous Approach (ICD-10-PCS; 2017-03-05)
PROC: 5A1D60Z (ICD-10-PCS; 2017-03-05)
PROC: 0BC38ZZ Extirpation of Matter from Right Main Bronchus, Via Natural or Artificial Opening Endoscopic (ICD-10-PCS; 2017-03-07)
PROC: 30233N1 Transfusion of Nonautologous Red Blood Cells into Peripheral Vein, Percutaneous Approach (ICD-10-PCS; 2017-03-08)
PROC: 05HM33Z Insertion of Infusion Device into Right Internal Jugular Vein, Percutaneous Approach (ICD-10-PCS; 2017-03-10)
PROC: 0BCF8ZZ Extirpation of Matter from Right Lower Lung Lobe, Via Natural or Artificial Opening Endoscopic (ICD-10-PCS; 2017-03-11)
PROC: 0BCD8ZZ Extirpation of Matter from Right Middle Lung Lobe, Via Natural or Artificial Opening Endoscopic (ICD-10-PCS; 2017-03-11)
PROC: 0BC38ZZ Extirpation of Matter from Right Main Bronchus, Via Natural or Artificial Opening Endoscopic (ICD-10-PCS; 2017-03-11)
DX: J18.9 Pneumonia, unspecified organism (principal); N17.0 Acute kidney failure with tubular necrosis; I21.4 Non-ST elevation (NSTEMI) myocardial infarction; R65.21 Severe sepsis with septic shock; A41.9 Sepsis, unspecified organism; J96.01 Acute respiratory failure with hypoxia; J96.02 Acute respiratory failure with hypercapnia; G93.40 Encephalopathy, unspecified; N18.3 Chronic kidney disease, stage 3 (moderate); I50.23 Acute on chronic systolic (congestive) heart failure; J44.1 Chronic obstructive pulmonary disease with (acute) exacerbation; L03.115 Cellulitis of right lower limb; I42.9 Cardiomyopathy, unspecified; L03.116 Cellulitis of left lower limb; I47.2 Ventricular tachycardia; I48.92 Unspecified atrial flutter; R04.2 Hemoptysis; J15.6 Pneumonia due to other Gram-negative bacteria; E11.22 Type 2 diabetes mellitus with diabetic chronic kidney disease; T17.990A Other foreign object in respiratory tract, part unspecified in causing asphyxiation, initial encounter; E11.65 Type 2 diabetes mellitus with hyperglycemia; Z88.5 Allergy status to narcotic agent; Z88.8 Allergy status to other drugs, medicaments and biological substances; H91.93 Unspecified hearing loss, bilateral; I25.10 Atherosclerotic heart disease of native coronary artery without angina pectoris; Z96.651 Presence of right artificial knee joint; I89.0 Lymphedema, not elsewhere classified; I12.9 Hypertensive chronic kidney disease with stage 1 through stage 4 chronic kidney disease, or unspecified chronic kidney disease; G47.33 Obstructive sleep apnea (adult) (pediatric); Z87.891 Personal history of nicotine dependence; E66.9 Obesity, unspecified; J01.00 Acute maxillary sinusitis, unspecified; M25.78 Osteophyte, vertebrae; R14.0 Abdominal distension (gaseous); E78.5 Hyperlipidemia, unspecified; G62.9 Polyneuropathy, unspecified; M81.0 Age-related osteoporosis without current pathological fracture; J30.9 Allergic rhinitis, unspecified; I48.0 Paroxysmal atrial fibrillation; I27.2 Other secondary pulmonary hypertension; R29.6 Repeated falls; I08.2 Rheumatic disorders of both aortic and tricuspid valves; Z82.49 Family history of ischemic heart disease and other diseases of the circulatory system; Z51.5 Encounter for palliative care; B02.9 Zoster without complications; K59.00 Constipation, unspecified; E86.0 Dehydration; Z91.19 Patient's noncompliance with other medical treatment and regimen; N40.0 Benign prostatic hyperplasia without lower urinary tract symptoms; M19.90 Unspecified osteoarthritis, unspecified site; E87.6 Hypokalemia; E83.39 Other disorders of phosphorus metabolism; D64.9 Anemia, unspecified; E87.5 Hyperkalemia
CPT/HCPCS: 31624; 32554; 32555; 36430; 36556; 36600; 36620; 70450; 70553; 71010; 71250; 72125; 72156; 74000; 74176; 76937; 80048; 80053; 80061; 80069; 80074; 80076; 80171; 80202; 81001; 82150; 82550; 82552; 82805; 82945; 82948; 83036; 83605; 83615; 83690; 83735; 83880; 83986; 84100; 84132; 84145; 84157; 84484; 85007; 85014; 85018; 85025; 85027; 85610; 85730; 86850; 86900; 86901; 86920; 87015; 87040; 87070; 87077; 87086; 87102; 87116; 87186; 87205; 87206; 87449; 87641; 87804; 88112; 88305; 89051; 90935; 93005; 93306; 93308; 93503; 93970; 94002; 94003; 94640; 94664; 95819; 96365; 96368; 96374; 96375; A9577; C1729; C9113; G0378; G8987-GP; G8988-GP; J0171; J0282; J0360; J0456; J0610; J0696; J1170; J1580; J1644; J1815; J1817; J1940; J1956; J2060; J2150; J2212; J2250; J2543; J2597; J2765; J2920; J2930; J3010; J3370; J3411; J3475; J3480; J7030; J7040; J7050; J7060; J7070; J7613; J7626; P9016; P9045; P9047